=== PATIENT | male | born 1955 | race Caucasian/White ===

== ENCOUNTER 2020-06-01 17:36 | Emergency (ER) | payer OTHER ==
[2020-06-01 17:47] VITALS: RESP 18
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
[2020-06-01 18:22] LABS: Basophils # (A) 0.1 k/uL (0-0.2); Basophils % (A) 1 %; Eosinophils # (A) 0.2 k/uL (0-0.7); Eosinophils % (A) 2 %; HCT 40.2 % (39.0-53.0); HGB 13.7 gm/dL (13.0-17.5); Lymphocytes # (A) 0.4 k/uL (1.0-4.8); Lymphocytes % (A) 6 %; MCH 33.3 pg (25.0-35.0); MCHC 34.1 g/dL (31.0-37.0); MCV 97.5 fL (80.0-100.0); Mean Platelet Volume 6.5; Monocytes # (A) 0.4 k/uL (0-1.0); Monocytes % (A) 6 %; Neutrophils # (A) 5.7 k/uL (1.3-7.7); Neutrophils % (A) 82 %; Platelet Count 262 k/uL (150-450); RBC 4.12 m/uL (4.30-5.90); RDW 12.8 % (11.5-15.5); WBC 6.9 k/uL (3.8-10.6)
[2020-06-01 18:30] LABS: Calcium 9.6 mg/dL (8.4-10.2); Potassium 5.1 mmol/L (3.5-5.1)
[2020-06-01 18:42] LABS: Partial Thromboplastin Time 27.6 sec (22.0-30.0); Prothrombin Time 10.7 sec (9.0-12.0)
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
[2020-06-01] MEDS ORDERED: LIDOCAINE 5% PATCH TOPICAL STA (18:54)
[2020-06-01 20:39] VITALS: BP 154/74; PULSE 74; TEMP 97
== END 2020-06-01 20:38 | disposition home or self-care (01) ==
LOC: EC 17:36
DX: S20.219A Contusion of unspecified front wall of thorax, initial encounter (principal); Z88.0 Allergy status to penicillin; Z88.8 Allergy status to other drugs, medicaments and biological substances; Z87.891 Personal history of nicotine dependence; V43.52XA Car driver injured in collision with other type car in traffic accident, initial encounter; Y92.410 Unspecified street and highway as the place of occurrence of the external cause
CPT/HCPCS: 36415; 71250; 80048; 84484; 85025; 85610; 85730; 93005; 99284

== ENCOUNTER → 2021-07-29 | Outpatient (CLI) | payer MEDICARE ==
[2021-07-29 14:59] LABS: HCT 48.6 % (39.6-50.0); HGB 15.2 g/dL (13.0-17.0); MCH 30.8 pg (27.0-32.0); MCHC 31.3 g/dL (32.0-37.0); MCV 98.6 fL (80.0-97.0); Mean Platelet Volume 9.7 fL (9.5-12.2); Platelet Count 270 X 10*3/uL (140-440); RBC 4.93 X 10*6/uL (4.40-5.60); RDW 13.4 % (11.5-14.5); WBC 8.77 X 10*3/uL (4.50-10.00)
== END | disposition home or self-care (01) ==
LOC: LABWHC1 08:45
PROVIDERS: ATTEND Internal Medicine Endocrinology, Diabetes & Metabolism
DX: E29.1 Testicular hypofunction (principal); E03.8 Other specified hypothyroidism
CPT/HCPCS: 36415; 84153; 84403; 84443; 85027

== ENCOUNTER → 2022-11-26 | Outpatient (CLI) | payer MEDICARE ==
--- NOTE | 2022-11-26 09:05 | MR ---
EXAMINATION TYPE: MR caceres/gavi wo con DATE OF EXAM: 11/26/2022 7:58 AM COMPARISON: NONE HISTORY: Neck/Low back pain, Numbness in lower extremities, hx of cancer Multiplanar MultiSpin echo imaging of the cervical spine was performed. Comparison: none C2-C3: No evidence for degenerative disc disease. No disc bulge/herniation or protrusion. No Canal stenosis. Foramina are patent bilaterally. C3-C4: No evidence for degenerative disc disease. No disc bulge/herniation or protrusion. No Canal stenosis. Foramina are patent bilaterally. C4-C5: Mild disc desiccation compatible with degenerative disc disease. Mild disc bulge. No herniatio n or protrusion. Degenerative change cervical apophyseal joints with mild left-sided foraminal encroa chment. C5-C6: Mild disc desiccation compatible with degenerative disc disease. Mild disc bulge. No herniatio n or protrusion. Degenerative change cervical apophyseal joints with moderate left-sided foraminal e ncroachment. C6-C7: No evidence for degenerative disc disease. No disc bulge/herniation or protrusion. No Canal stenosis. Foramina are patent bilaterally. C7-T1: No evidence for degenerative disc disease. No disc bulge/herniation or protrusion. No Canal stenosis. Foramina are patent bilaterally. Cervical segments are intact. There is normal alignment. Cervical spinal cord is of normal signal. Craniovertebral junction relationships are within normal limits. IMPRESSION: 1. Degenerative disc disease with mild disc bulging. Left foraminal encroachment at C4-5 and C5-6 EXAMINATION TYPE: MR zamora wo con DATE OF EXAM: 11/26/2022 7:58 AM COMPARISON: NONE HISTORY: Neck/Low back pain, Numbness in lower extremities, hx of cancer Multiplanar, MultiSpin echo imaging of the lumbar spine was performed. L1-L2: Mild degenerative disc disease with posterior disc bulge and small annular tear. No pee disc herniation or central stenosis. Foramina are patent bilaterally. Foramina are patent bilaterally. L2-L3: Normal disc appearance without desiccation. No herniation, protrusion or disc bulging. No ca nal stenosis is present. Foramina are patent bilaterally. L3-L4: Normal disc appearance without desiccation. No herniation, protrusion or disc bulging. No ca nal stenosis is present. Foramina are patent bilaterally. L4-L5: Moderate disc desiccation with posterior disc bulge.. Retrolisthesis of L4 and L5 measuring 7. 4 mm grade 1 type. Effacement ventral thecal sac without disc herniation or central stenosis. Facet j oint arthropathy with mild bilateral foraminal encroachment. L5-S1: Severe disc desiccation with grade 2 anterolisthesis L5 on S1 measuring 11 mm. Degenerative en dplate marrow change. Disc bulging without herniation or central stenosis. Severe facet joint arthrop athy with severe foraminal encroachment seen bilaterally. Lumbar segments are intact. No paraspinal masses are identified. Conus medullaris has a normal appe arance. Bone marrow signal is heterogenous and correlation with CBC is advised. IMPRESSION: 1. Multilevel degenerative disc disease greatest at L4-5 and L5-S1 there is grade 1 retrolisthesis of L4 on L5 and grade 1 anterolisthesis of L5 on S1. 2. Degenerative endplate marrow change L5. Heterogeneity of the bone marrow signal may reflect bone m arrow reconversion. Correlate with CBC.
== END | disposition home or self-care (01) ==
LOC: RADMRIMAIN 06:49
PROVIDERS: ATTEND Nurse Practitioner Family
DX: M51.16 Intervertebral disc disorders with radiculopathy, lumbar region (principal); M43.17 Spondylolisthesis, lumbosacral region; M47.26 Other spondylosis with radiculopathy, lumbar region; M51.17 Intervertebral disc disorders with radiculopathy, lumbosacral region; M47.22 Other spondylosis with radiculopathy, cervical region
CPT/HCPCS: 72141; 72148

== ENCOUNTER → 2023-01-12 | Outpatient (CLI) | payer MEDICARE ==
[2023-01-12 13:57] VITALS: BP 131/82; PULSE 70; RESP 18; TEMP 97.7
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
== END ==
LOC: PNWHC3 12:16
PROVIDERS: ATTEND Specialist
DX: M47.22 Other spondylosis with radiculopathy, cervical region (principal); I10 Essential (primary) hypertension; F41.9 Anxiety disorder, unspecified; Z87.891 Personal history of nicotine dependence; Z88.6 Allergy status to analgesic agent; Z88.0 Allergy status to penicillin
CPT/HCPCS: 99211

== ENCOUNTER 2023-02-04 21:32 | Emergency (ER) | payer MEDICARE ==
[2023-02-04 22:32] VITALS: TEMP 98.4
--- NOTE | 2023-02-04 22:46 | XR ---
EXAMINATION TYPE: XR chest 2V DATE OF EXAM: 02/04/2023 COMPARISON: NONE HISTORY: Shortness of breath TECHNIQUE: Frontal and lateral views of the chest are obtained. FINDINGS: Scattered senescent parenchymal changes noted. Hyperinflation compatible with COPD. Right perihilar and right lower lobe increased density may reflect developing infiltrate. Small amoun t of fluid within the right minor fissure. The left lung is clear at this time. Heart size is stable. MediPort catheter is in place with distal tip overlying the SVC. Mediastinal structures are stable and grossly unremarkable. No evidence for hilar prominence. Degenerative changes dorsal spine. IMPRESSION: 1. Correlate for developing right-sided pneumonia.
[2023-02-05 01:04] VITALS: BP 166/99; PULSE 71; RESP 16
[2023-02-05] MEDS ORDERED: LEVOFLOXACIN 750 MG TAB PO STA (01:05)
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
== END 2023-02-05 01:17 | disposition home or self-care (01) ==
LOC: EC 21:32
DX: J18.9 Pneumonia, unspecified organism (principal); I10 Essential (primary) hypertension; F41.9 Anxiety disorder, unspecified; Z87.891 Personal history of nicotine dependence; Z88.0 Allergy status to penicillin; Z88.8 Allergy status to other drugs, medicaments and biological substances; Z79.899 Other long term (current) drug therapy; Z79.51 Long term (current) use of inhaled steroids; Z20.822 Contact with and (suspected) exposure to COVID-19
CPT/HCPCS: 71046; 87636; 99284

== ENCOUNTER → 2023-02-18 | Outpatient (CLI) | payer MEDICARE ==
[2023-02-18 13:57] LABS: African American GFR (CKD) 78 (>60 ml/min/1.73 sqM); Blood Urea Nitrogen 19 mg/dL (9-20); Non-African American GFR(CKD) 68 (>60 ml/min/1.73 sqM)
--- NOTE | 2023-02-19 17:29 | CT ---
EXAMINATION TYPE: CT angio abd aorta w/Runoff DATE OF EXAM: 02/18/2023 COMPARISON: None HISTORY: INFRARENAL ABDOMINAL AORTIC ANEURYSM wo rupture CT DLP: 2377.3 mGycm Automated exposure control for dose reduction was used. Contrast: None Technique: Axial images 2 mm thick sections. Reconstructed images in the coronal plane 3-D reconstruc francine images were performed through the abdominal aorta and lower extremity runoff. FINDINGS: Limited CT secondary obtained lung bases which are clear CT ABDOMEN: Liver and spleen of normal density without discrete masses or cysts. The adrenal glands a re normal. Kidneys are normal without masses cysts or hydronephrosis. Some perinephric fluid may be p resent on the left. The pancreas is normal. Gallbladder is unremarkable. Loops of bowel without oral contrast are normal. Inferior vena cava appears unremarkable CT PELVIS: Appears to be appendectomy clips in the right lower quadrant. The appendix is not identifi ed. Loops of bowel within the pelvis appear normal. There is some mild asymmetric wall thickening wit hin the posterior lateral right urinary bladder. Some diffuse urinary bladder wall thickening may als o be present. Clinical correlation with symptoms is recommended. Prostate is prominent. Spondylolysis of L5 is present. Facet degenerative changes are present. No suspicious lytic lesions e vident. Aorta: Descending thoracic aorta appears unremarkable. Celiac axis and superior mesenteric arteries a re normal. The renal artery origins appear normal. No aneurysmal dilatation of the abdominal aorta is evident. Inferior mesenteric artery appears normal Iliac vessels contain calcification. No suspicious focal stenosis is present. Internal and external i liac vessels are patent. Common femoral arteries are patent. Profunda femoris and superficial femoral arteries proximally are patent. Superficial femoral arteries are patent to the obturator canals. There is some narrowing within the l eft obturator canal of the superficial femoral artery. Popliteal arteries appear symmetrical and box nt. Trifurcation vessels appear normal. Peroneal arteries appear to be loss in the mid calf region. A nterior tibial arteries are lost in the more distal calf region. Posterior tibial arteries are lost a joanna the level of the ankles. No discrete vascular flow within the bilateral feet is evident. Delayed images were obtained through trifurcation vessels. Contrast opacification is somewhat improve d. Anterior tibial arteries are identified at the ankle level on the delayed images. Posterior tibial arteries are faintly visualized into the feet. On three-D reconstructed images contrast extends to the proximal trifurcation vessels. IMPRESSION: 1. NO ANEURYSMAL DILATATION ABDOMINAL AORTA. 2. ATTENUATION OF THE TRIFURCATION VESSELS WITHIN THE PROXIMAL TO MID CALF REGIONS BILATERALLY DISCUS SED ABOVE. ANTERIOR TIBIAL ARTERIES MAY BE PATENT TO THE LEVEL OF THE ANKLE BILATERALLY AND SLIGHTLY DELAYED IMAGES.
== END | disposition home or self-care (01) ==
LOC: RADCTMAIN 13:13
PROVIDERS: ATTEND Surgery
DX: I71.43 Infrarenal abdominal aortic aneurysm, without rupture (principal)
CPT/HCPCS: 82565; 84520; 75635; 36415; Q9967

== ENCOUNTER 2023-03-03 08:45 | Inpatient (IN) | payer MEDICARE ==
[2023-03-13] MEDS ORDERED: ACETAMINOPHEN TAB 500 MG TAB PO PRN (05:00)
[2023-03-13] MEDS ORDERED: TRANEXAMIC 1,000 MG/100ML-NACL 1,000 MG in SALINE 1 100ML.BAG IVPB PRN (05:00)
[2023-03-13] MEDS ORDERED: GABAPENTIN 300 MG CAP PO PRN (05:00)
[2023-03-13] MEDS ORDERED: ONDANSETRON 4 MG/2 ML VIAL IVP PRN (05:00)
[2023-03-13] MEDS ORDERED: VANCOMYCIN 1,500 MG in SODIUM CHLORIDE 0.9% 500 ML 500 ML IVPB PRN (05:00)
--- NOTE | 2023-03-13 07:34 | P.HPOR ---
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 [Xanax XR] 0.5 mg PO BID 01/12/23 03/06/23 History Acetaminophen Tab [Tylenol Tab] 1,000 mg PO Q6H PRN 01/12/23 03/06/23 History B Complex W-C No.20/Folic Acid 1 mg PO DAILY 01/12/23 03/06/23 History [Renal Caps Softgel] Cetirizine HCl [Zyrtec] 10 mg PO DAILY 01/12/23 03/06/23 History Cyclobenzaprine [Flexeril] 10 mg PO TID 01/12/23 03/06/23 History Ergocalciferol [Vitamin D2 (1250 1,250 mcg PO WE 01/12/23 03/06/23 History Mcg = 37945 Iu)] Fluticasone Nasal [place] [Flonase 2 spray EA NOSTRIL DAILY 01/12/23 03/06/23 History Nasal [place]] Ibuprofen [Motrin Ib] 200 mg PO Q8H PRN 01/12/23 03/06/23 History Levothyroxine Sodium [Synthroid] 250 mcg PO QAM 01/12/23 03/06/23 History Magnesium 250 mg PO DAILY 01/12/23 03/06/23 History Metoprolol Tartrate [Lopressor] 50 mg PO BID 01/12/23 03/06/23 History Pantoprazole [Protonix] 40 mg PO QAM 01/12/23 03/06/23 History Sertraline [Zoloft] 100 mg PO QAM 01/12/23 03/06/23 History Alpha Lipoic Acid 1,200 mg PO DAILY 02/24/23 03/06/23 History Lipo Falvinoid(Unk) 1 tab PO DAILY 02/24/23 03/06/23 History Salt Tab(Unk) 1 tab PO DIRECTED PRN 02/24/23 03/06/23 History Testosterone Cypionate 100 mg IM AMBRIZ 02/24/23 03/06/23 History [Depo-Testosterone] Tumeric (Unk) 1 tab PO DAILY 02/24/23 03/06/23 History tadalafiL [Cialis] 5 mg PO DAILY 03/06/23 03/06/23 History Allergies Allergy/AdvReac Type Severity Reaction Status Date / Time AAYUSH Inhibitors Allergy Swelling Verified 03/06/23 12:33 amoxicillin Allergy Rash/Hives Verified 03/06/23 12:33 [id number]-[id number]-[id number] Reductase AdvReac Elevates Verified 03/06/23 13:01 Inhibitor Liver Enzymes Physical Examination Osteopathic Statement: *. No significant issues noted on an osteopathic structural exam other than those noted in the History and Physical/Consult.
[2023-03-13] MEDS ORDERED: DEXAMETHASONE SOD PHOSPHATE 4 MG/ML 1 ML VIAL IV ONE (10:39)
[2023-03-13] MEDS ORDERED: LIDOCAINE 1% (10MG/ML) FOR IV START INTRADERMA PRN (10:39)
[2023-03-13] MEDS: LACTATED RINGERS 1,000 ML IV SCH (10:46)
[2023-03-13] MEDS ORDERED: MIDAZOLAM 2 MG/2 ML VIAL IVP ONE (12:00)
[2023-03-13] MEDS ORDERED: ROCURONIUM 10 MG/ML (5 ML VIAL) IV ONE (13:13)
[2023-03-13] MEDS ORDERED: KETAMINE 10 MG/ML 20 ML VIAL ONE (13:13)
[2023-03-13] MEDS ORDERED: HYDROmorphone (PF) 1 MG/ML ONE (13:13)
[2023-03-13] MEDS ORDERED: SUCCINYLCHOLINE CHLORIDE 200 MG/10 ML VIAL IV ONE (13:13)
[2023-03-13] MEDS ORDERED: SODIUM BICARB 8.4% 50 ML SYR (1 MEQ/ML) ONE (13:13)
[2023-03-13] MEDS ORDERED: PROPOFOL 10 MG/ML 20 ML VIAL IV ONE (13:13)
[2023-03-13] MEDS ORDERED: GLYCOPYRROLATE 0.2 MG/ML 2 ML VIAL ONE (13:13)
[2023-03-13] MEDS ORDERED: PHENYLEPHRINE-0.9% NACL SYG 1,000 MCG/10 ML SYRINGE ONE (13:13)
[2023-03-13] MEDS ORDERED: fentaNYL (PF) 50 MCG/ML 2 ML AMP ONE (13:13)
[2023-03-13] MEDS ORDERED: MIDAZOLAM 2 MG/2 ML VIAL ONE (13:13)
[2023-03-13] MEDS ORDERED: TRANEXAMIC 1,000 MG/100ML-NACL PREMIX BAG ONE (13:13)
[2023-03-13] MEDS ORDERED: LIDOCAINE 2% INJ 20 MG/ML (2 ML VIAL) ONE (13:13)
[2023-03-13] MEDS ORDERED: NEOSTIGMINE 1 MG/ML 10 ML VIAL ONE (13:13)
[2023-03-13] MEDS ORDERED: THROMBIN (BOVINE) 5,000 UNIT VIAL TOPICAL ONE ×2 (13:43)
[2023-03-13] MEDS ORDERED: GELATIN SPONGE,ABSORB (LARGE) 1 EACH SPONGE TOPICAL ONE (13:44)
[2023-03-13] MEDS ORDERED: SODIUM CHLORIDE 0.9% 50 ML with ceFAZolin 2,000 MG IV ONE ×2 (14:29)
[2023-03-13] MEDS ORDERED: ceFAZolin 1,000 MG VIAL ONE ×2 (14:29→18:20)
[2023-03-13] MEDS ORDERED: SODIUM CHLORIDE 0.9% 100 ML BAG ONE ×2 (14:29→18:20)
[2023-03-13 14:49] LABS: Allen Test Performed? Yes; HCT 44.4 % (39.0-53.0); HGB 15.1 gm/dL (13.0-17.5); MCH 30.4 pg (25.0-35.0); MCHC 33.9 g/dL (31.0-37.0); MCV 89.7 fL (80.0-100.0); Mean Platelet Volume 7.8; Platelet Count 190 k/uL (150-450); RBC 4.95 m/uL (4.30-5.90); RDW 14.4 % (11.5-15.5)
[2023-03-13 14:52] LABS: ABG PH 7.37 (7.35-7.45)
[2023-03-13 14:53] LABS: ABG HCO3 18 mmol/L (21-25); ABG PCO2 31 mmHg (35-45); ABG PO2 196 mmHg (83-108); ABG TCO2 19 mmol/L (19-24)
[2023-03-13 14:54] LABS: ABG Oxygen Saturation 99.8 % (94-97)
[2023-03-13 14:56] LABS: African American GFR (CKD) >90 (>60 ml/min/1.73 sqM); Anion Gap 10 mmol/L; Blood Urea Nitrogen 16 mg/dL (9-20); Calcium 8.5 mg/dL (8.4-10.2); Carbon Dioxide 20 mmol/L (22-30); Chloride 98 mmol/L (98-107); Glucose 138 mg/dL (74-99); Non-African American GFR(CKD) 85 (>60 ml/min/1.73 sqM); Sodium 128 mmol/L (137-145)
[2023-03-13 15:21] LABS: Potassium 6.6 mmol/L (3.5-5.1)
[2023-03-13] MEDS ORDERED: LACTATED RINGERS 1,000 ML IV ONE ×2 (16:00)
[2023-03-13 17:07] LABS: African American GFR (CKD) >90 (>60 ml/min/1.73 sqM); Anion Gap 10 mmol/L; Blood Urea Nitrogen 17 mg/dL (9-20); Calcium 8.4 mg/dL (8.4-10.2); Carbon Dioxide 18 mmol/L (22-30); Chloride 99 mmol/L (98-107); Glucose 132 mg/dL (74-99); Non-African American GFR(CKD) 87 (>60 ml/min/1.73 sqM); Sodium 127 mmol/L (137-145)
[2023-03-13 17:19] LABS: Potassium 6.2 mmol/L (3.5-5.1)
[2023-03-13] MEDS ORDERED: bisacodyL 10 MG SUPP RECTAL PRN (18:49)
[2023-03-13] MEDS ORDERED: MAGNESIUM HYDROXIDE 2,400 MG/30 ML CUP PO PRN (18:49)
[2023-03-13] MEDS ORDERED: HYDROcodone/APAP 5-325MG 1 EACH TAB PO PRN (18:49)
--- NOTE | 2023-03-13 19:26 | P.OP ---
Date of Procedure: 03/13/23 Preoperative Diagnosis: 1. L5-S1 GRADE II SPONDYLOLISTHESIS 2. L4-S1 SPONDYLOSIS WITH FORAMINAL STENOSIS 3. LOW BACK PAIN 4. LE RADICULOPATHY AND WEAKNESS Postoperative Diagnosis: 1. L5-S1 GRADE II SPONDYLOLISTHESIS 2. L4-S1 SPONDYLOSIS WITH FORAMINAL STENOSIS 3. LOW BACK PAIN 4. LE RADICULOPATHY AND WEAKNESS Procedure(s) Performed: PART I: 1. ANTERIOR RETROPERITONEAL EXPOSURE PERFORMED BY DR. QUEZADA 2. ANTERIOR LUMBAR INTERBODY FUSION L5-S1 (04308) 3. INSERTION OF INTERBODY DEVICE (02066) DR. QUEZADA AND DR. ZEPEDA WERE PRESENT FOR THE ENTIRE ANTERIOR CASE PART II: 1. POSTERIOLATERAL AND INTERBODY FUSION L4-5 (94656) 2. L5-S1 POSTERIOLATERAL INSTRUMENTED FUSION (23071) 3. L4-S1 SEGMENTAL INSTRUMENTATION (46306) 4. L4-5 LAMINOFORAMINOTOMY FOR DECOMPRESSION AND CAGE PLACEMENT (29045) 5. INSERTION OF INTERBODY DEVICE L4-5 (31161) 6. USE OF [employer] NAVIGATION FOR SCREW PLACEMENT (60154) USE OF IONM USE OF IO MICROSCOPE Implants: ANTERIOR: HEMA MONTEREY ALIF INTERBODY 20 DEG, 14 MM MEDIUM. 3 SCREWS 20 MM POST: GLOBUS CREO SCREWS LIFE SPINE CAGE MAGNATOS, ALLOCELL, AUTOGRAFT Anesthesia: GETA Surgeon: Juan Jose Villa (CO-SURGEON CASE FOR ALIF WITH DR. QUEZADA OF VASCULAR SURGERY) Destaticizer Feeder #1: Vonda Barreto (WAS PRESENT FOR PART II OF THE CASE FROM POSITION TO CLOSURE. ) Estimated Blood Loss (ml): 150 IV fluids (ml): 2,000 Urine output (ml): 400 Pathology: none sent Condition: stable Disposition: PACU Indications for Procedure: Mr. Mary is presenting for evaluation of low back and bilateral lower extremity pain, bilateral lower extreity numbness, tingling, and weakness. It was my pleasure to have seen and examined Mr. Mary. In our visit today we have had a chance to go over subjective complaints, physical examination findings and treatments including the natural course history without intervention and various interventional options. The patients imaging demonstrates[facility] Lumbar[facility]ine: 1. Multilevel degenerative disc disease greatest at L4-5 and L5-S1 there is grade 1 retrolisthesis of L4 on L5 and grade 2 anterolisthesis of L5 on S1. On physical exam, Mr. Mary demonstrates: an increasing, intermittent sharp thoracic/lumbar pain that radiates down into the bilateral lower extremities, associated with numbness and tingling. Patient reports experiencing gradually worsening right hip and buttock pain as well. Patient also reports experiencing increased weakness throughout the bilateral lower extremities. I have explained to the patient that as their condition progresses it will cause further neurological deficits and eventual paralysis. Based on the patients imaging, physical exam, and the rapid progression and disabling nature of their symptoms, at this time I recommend surgery in the form of a: Stage I: ALIF from L4-S1 and Stage II: Posterior L4-S1 decompression and fusion. I discussed the risk and benefits of this procedure at length with Mr. Mary. The patient agreed to considered pursuing the procedure above mentioned . Prior to surgery, she should follow up with her PCP (Cardio, ID, IM etc) for clearance. Questions were invited and answered, and the patient wishes to proceed as outlined below. Currently, I am recommendin.Stage I: ALIF from L4-S1 with Dr. Quezada of Vascular surgery Stage II: Posterior L4-S1 decompression and fusion Description of Procedure: PART I: The patient was seen and examined in the preoperative area. All preoperative protocols were followed. Informed consent was obtained risks and benefits of the procedure were discussed at length. Risks including bleeding infection damage to the surrounding tissue and risk of reoperation were discussed with the patient. Risk of anesthesia up to and including was a discussed with the patient. These are outlined in the risk review. They were willing to accept these risks and all of the risks of surgery. The patient was given a weight- based dose of antibiotics in the form of VANCOMYCIN AND aNCEF. The patient was seen and evaluated by the anesthesia team who deemed them fit for surgery. The site was marked, the patient was willing to proceed with the procedure. The patient was transferred to the operative suite by the Department of anesthesia. They were then drifted off to sleep by the department anesthesia and [anesthesia type] was performed. The patient tolerated this well. [Freeman catheter was placed by nursing staff, atraumatically]. Once confirmation of lines and ventilation the patient was transferred to a supine flattop Clarence table very carefully. All bony prominences including wrists, elbows, axilla, chest, hips, and thighs, and feet were padded very well. Special attention was paid to the genitalia and these were padded accordingly. SCDs were placed on bilateral lower extremities and were connected. Arms were well padded and placed talk to side thumbs-up well-padded. Once in position, again we confirmed good ventilation capabilities and that lines were running appropriately. The patient's anterior lumbar abdominal pelvic region was then exposed. 1010s were placed outlining the incision site. Standard alcohol was used to clean the incision site and allowed to dry. C-arm was used to biomark the patient and conf irm level for incision which was marked with a skin marker. Operative briefing was performed with all teams and everyone in agreement to proceed. The patient was then prepped and draped in a normal sterile fashion. Timeout was then performed and all parties were in agreement with the procedure to be performed. Dr. Quezada of vascular surgery then performed an anterior retroperitoneal exposure to the L5-S1 interspace. Please see his operative note for details. once the desired level was obtained we marked anteriorly using fluoroscopic imaging midline as well as confirmed to be in good position on lateral imaging. We then performed discectomy in this area using an annulotomy knife to first make an annulotomy followed by a Almodovar to release the disc and cartilaginous material from the endplates. We also used this to free up L5-S1 as it was somewhat stiffened on the posterior aspect. Osteotome was used to help release this. We then placed a knot bumper within the disc space and expanded it to help with ligamentotaxis and indirect decompression. We then shows templates and trials were placed. These were done under lateral fluoroscopic guidance once the trials were placed and were adequate size and reduction was selected. The final cage was then selected and impacted into position under lateral fluoroscopic guidance. 2 screws were placed caudally and 1 screw cranially to hold the interbody in position and had good purchase. Final AP and lateral fluoroscopic images confirmed good placement of hardware at L5-S1 with reasonable reduction of the listhesis. Attempt was made at L4-L5 from the anterior position however anatomic considerations did not allow us to perform this. Closure was then done per vascular surgery please see their note for details on the anterior closure portion. Once close the patient was transferred off the flat Clarence table onto his hospital bed while the tables were changed for a prone trios table. PART II: Once confirmation of lines and ventilation the patient was transferred to a prone Clarence table very carefully. All bony prominences including wrists, elbows, axilla, chest, hips, and thighs, and feet were padded very well. Special attention was paid to the genitalia, and these were padded accordingly. SCDs were placed on bilateral lower extremities and were connected. Arms were well padded and placed on arm boards up and out in the 90/90 position. Once in position, again we confirmed good ventilation capabilities and that lines were running appropriately. The patients Lumbar spine was then exposed. 1010s were placed outlining the incision site. Standard alcohol was used to clean the incision site and allowed to dry. C-arm was used to needle localize the pedicles at L4-S1 and bio-carine the patient and confirm level for incision which was marked with a skin marker. Operative briefing was performed with all teams and everyone in agreement to proceed. The patient was then prepped and draped in a normal sterile fashion. Timeout was then performed, and all parties agreed with the procedure to be performed. Skin nicks were made over the PSIS on the right side and pins placed for the Row Sham Bow Navigation tracker. This was secured and then a 3D Zhiem spin was registered. Once registered it was tested and confirmed to be accurate. We then targeted pedicles b/l at L4 through S1 using navigated Jamshidi and drill guide. Wires were then placed in their void and confirmed to be in good position on AP and Lateral. Contralateral right side screws were then placed over wires and tested and they all tested above 20 mA. Attention was then turned to interbody fusion at L4-5. Tubular retractor system was placed at the interspace of L4-5 using biplanar c arm. Once in position and dilated up to 26mm tube it was locked to the bed and confirmed in good position. Microscope was then brought in for visualization. Limited myomectomy was performed and laminectomy, complete facetectomy and foraminotomy performed at L4-5 using high speed ines and Kerrison rongure. The ligamentum was removed and dural sac decompressed. Exiting and traversing roots visualized and decompressed. Neural elements were then protected, and disc space accessed with an osteotome. Sequential shaving then done under lateral imaging and complete discectomy performed using yane, pituitary and curette. Once good bleeding endplates accomplished and good height taoist with trials, a combination of autograft, allograft and synthetic placed anterior in the disc space. The cage was then selected and impacted into place under lateral imaging. The cage was then expanded restoring height, lordosis and alignment. The cage was backfilled with bone graft through a funnel. The pallet stone inserter removed and area inspected. Good cage placement, stable cage and no injuries. Area was irrigated copiously, and meticulous hemostasis achieved. The tubular retractor was then removed under direct visualization. Screws were then selected and placed over the previously placed wires on the ipsilateral side. This was done in the fashion described above. Screws were then tested, and all tested above 20 mA. Shells were then placed on the tabs. Ajay length was then measured, and rods selected. They were then placed through the MIS tabs, subfascial. These were then locked into place with set screws and final tightened. Ajay holders removed and images taken showing good placement of rods good lordosis and taoist of height. Tabs were broken off. Wounds were then copiously irrigated with NSS. Ines used for TP decortication and mixture of MagnatOs, allograft and autograft packed posterolateral. Facia was then closed with 0 Vircyl. Deep subq closed with 0 Vicryl. Superficial subq closed with 2-0 Vicryl and skin with rikki. Wound edges approximated very well. Wound was then cleaned with alcohol and dried. Wounds dressed in Optifoam dressings. The patient was then transferred off the table back to their hospital bed a- traumatically. They were extubated by the department of anesthesia. They were then transferred to PACU in stable condition having tolerated the procedure with no complications.
[2023-03-13] MEDS: HYDROmorphone 0.5 MG/0.5 ML SYRINGE IVP PRN ×2 (19:45→19:58)
[2023-03-13 20:10] LABS: African American GFR (CKD) >90 (>60 ml/min/1.73 sqM); Anion Gap 7 mmol/L; Blood Urea Nitrogen 15 mg/dL (9-20); Carbon Dioxide 22 mmol/L (22-30); Chloride 102 mmol/L (98-107); Glucose 128 mg/dL (74-99); Non-African American GFR(CKD) >90 (>60 ml/min/1.73 sqM); Potassium 4.3 mmol/L (3.5-5.1); Sodium 131 mmol/L (137-145)
[2023-03-13] MEDS: CYCLOBENZAPRINE 10 MG TAB PO PRN (21:53)
[2023-03-13] MEDS: HYDROmorphone 1 MG/ML 1 ML SYRINGE IVP PRN (21:53)
[2023-03-14 01:24] LABS: Basophils % (A) 0 %; Eosinophils # (A) 0.2 k/uL (0-0.7); Eosinophils % (A) 1 %; HCT 44.5 % (39.0-53.0); HGB 14.7 gm/dL (13.0-17.5); Lymphocytes # (A) 0.4 k/uL (1.0-4.8); Lymphocytes % (A) 2 %; MCH 30.6 pg (25.0-35.0); MCHC 32.9 g/dL (31.0-37.0); MCV 92.8 fL (80.0-100.0); Mean Platelet Volume 7.5; Monocytes # (A) 0.9 k/uL (0-1.0); Monocytes % (A) 5 %; Neutrophils % (A) 90 %; Platelet Count 202 k/uL (150-450); RDW 14.8 % (11.5-15.5); WBC 17.7 k/uL (3.8-10.6)
[2023-03-14 01:44] LABS: African American GFR (CKD) 80 (>60 ml/min/1.73 sqM); Anion Gap 10 mmol/L; Blood Urea Nitrogen 21 mg/dL (9-20); Calcium 8.3 mg/dL (8.4-10.2); Carbon Dioxide 23 mmol/L (22-30); Chloride 96 mmol/L (98-107); Glucose 124 mg/dL (74-99); Non-African American GFR(CKD) 69 (>60 ml/min/1.73 sqM); Potassium 5.7 mmol/L (3.5-5.1); Sodium 129 mmol/L (137-145)
[2023-03-14] MEDS ORDERED: SODIUM CHLORIDE 0.9% 1,000 ML IV ONE (02:56)
[2023-03-14] MEDS ORDERED: SODIUM POLYSTYRENE SULFONATE 15 GM/60 ML BOTTLE PO STA (02:57)
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
[2023-03-14] MEDS ORDERED: CALCIUM GLUCONATE IN NACL 1 GM in SALINE 1 100ML.BAG IVPB ONE (03:00)
--- NOTE | 2023-03-14 04:52 | CT ---
EXAMINATION TYPE: CT lumbar spine wo con DATE OF EXAM: 03/13/2023 COMPARISON: None HISTORY: post-op CT DLP: 1186.6 mGycm CONTRAST: None TECHNIQUE: CT of the lumbar spine is performed on a spiral scan at 3 mm thick sections. Reconstructed images are performed in the coronal and sagittal planes. FINDINGS: T11-T12: No focal disc herniation or significant disc bulge is evident. No spinal canal stenosis or neural foraminal stenosis is present. T12-L1: No focal disc herniation or significant disc bulge is evident. No spinal canal stenosis or neural foraminal stenosis is present. L1-L2: No focal disc herniation or significant disc bulge is evident. No spinal canal stenosis or n eural foraminal stenosis is present L2-L3: No focal disc herniation or significant disc bulge is evident. No spinal canal stenosis or n eural foraminal stenosis is present L3-L4: Broad-based disc bulge as well as anterior thecal sac flattening. No AP spinal canal stenosis present. Neural foramen are patent. L4-L5: Disc spacer is in place. Pedicle screws are present L4-L5. This causes beam hardening artifact . Moderate right and mild left foraminal narrowing is present. There is spondylolysis of L5. L5-S1: Spondylolysis of L5 is evident. No focal disc herniation or significant disc bulge is evident. No spinal canal stenosis. Moderate bilateral foraminal narrowing is present. Disc spacers present. There is a grade 1 spondylolisthesis of L5 anteriorly on S1. Postsurgical changes are within the soft tissues posterior to the spinous processes L4-L5. IMPRESSION: 1. Postsurgical changes L4-S1. 2. Grade 1 spondylolisthesis of L5 anteriorly on S1. 3. Mild to moderate foraminal narrowing lower lumbar spine discussed above.
[2023-03-14] MEDS: SENNOSIDES-DOCUSATE SODIUM 1 EACH TAB PO SCH (07:01)
[2023-03-14] MEDS: SERTRALINE 100 MG TAB PO SCH (08:50)
[2023-03-14] MEDS: METOPROLOL TARTRATE 50 MG TAB PO SCH ×2 (08:50→20:22)
[2023-03-14] MEDS: PANTOPRAZOLE 40 MG TABLET PO SCH (08:50)
[2023-03-14] MEDS: HYDROmorphone 1 MG/ML 1 ML SYRINGE IVP PRN ×2 (08:50→16:43)
[2023-03-14] MEDS: ONDANSETRON 4 MG/2 ML VIAL IVP PRN (08:50)
--- NOTE | 2023-03-14 11:56 | P.PN ---
Subjective Progress Note Date: 03/14/23 Principal diagnosis: L5-S1 grade 2 spondylolisthesis L4 S1 spondylosis lower extremity radiculopathy patient seen and examined in his room is doing okay he is in some pain right now I see just try to get up and move around we got lightheaded when he got up. Potassium is elevated again nursing is at bedside. Discussed with Allegra his nurse that patient got up about was lightheaded and had some issues with this. We are going to switch some of his medications around a season pain is well. He denies any numbness or tingling no perineal numbness or tingling. Legs are moving well. Objective - Vital Signs Vital signs: Vital Signs Temp 98.3 F 03/14/23 09:38 Pulse 103 H 03/14/23 06:59 Resp 18 03/14/23 06:59 BP 105/66 03/14/23 09:38 Pulse Ox 95 03/14/23 08:47 FiO2 Intake & Output 03/13/23 03/14/23 03/14/23 18:59 06:59 18:59 Intake Total 4050 1370 Output Total 1150 500 Balance 2900 870 Weight 97.3 kg 97.3 kg Intake: IV 4050 Intake, IV Titration 1230 Amount Calcium Gluconate in NaCl 100 1 gm In Saline 1 100ml. bag @ 100 mls/hr IVPB ONCE ONE Rx#:[id number] Lactated Ringers 1,000 ml 80 @ 20 mls/hr IV .Q24H [facility] Rx#:[id number] Sodium Chloride 0.9% 1, 1000 000 ml @ 999 mls/hr IV . Q1H1M ONE Rx#:[id number] ceFAZolin 2 gm In Sodium 50 Chloride 0.9% 50 ml @ 100 mls/hr IVPB Q8HR [facility] Rx# :[id number] Oral 140 Output: Urine 1000 500 Estimated Blood Loss 150 Other: Voiding Method Indwelling Catheter Indwelling Catheter - Exam Physical Exam: -Patient is alert and oriented 3 appears well-nourished well-hydrated is in no acute distress. They do not appear septic. -There is TTP Of the abdomen and low back secondary to surgery no erythema or ecchymosis edema [-Incision is CDI, no EEE, no drainage] -Upper extremities show [5] out of 5 strength in all major muscle groups. [##EXCEPT] -Lower extremities with [5] out of 5 strength in all major muscle groups except hip flexion bilaterally as this causes pain currently -There is [FROM] that is [painless] of the b/l UE and LE in all major joints. negative straight leg raise negative logroll bilaterally -They are intact to light touch sensation in C5 to T1 and L2 to S1 nerve distribution. -DTR [2]/4 all upper and lower extremities -Patient has palpable distal pulses all 4 ext -Compartments are soft and compressible. -Patient shows a negative Melchor's [-Neg Hoffmans b/l] [-Neg Clonus b/l] [-Neg babinski b/l] Cranial nerves II through XII are grossly intact. - Labs CBC & Chem 7: 03/14/23 01:06 03/14/23 01:06 Labs: Abnormal Lab Results - Last 24 Hours (Table) 03/13/23 03/13/23 03/13/23 Range/Units 14:20 14:20 14:20 WBC 13.0 H (3.8-10.6) k/uL Neutrophils # (1.3-7.7) k/uL Lymphocytes # (1.0-4.8) k/uL ABG pCO2 31 L (35-45) mmHg ABG pO2 196 H (83-108) mmHg ABG HCO3 18 L (21-25) mmol/L ABG O2 Saturation 99.8 H (94-97) % Sodium 128 L (137-145) mmol/L Potassium 6.6 H* (3.5-5.1) mmol/L Chloride (98-107) mmol/L Carbon Dioxide 20 L (22-30) mmol/L BUN (9-20) mg/dL Glucose 138 H (74-99) mg/dL Calcium (8.4-10.2) mg/dL 03/13/23 03/13/23 03/14/23 Range/Units 15:25 19:06 01:06 WBC 17.7 H (3.8-10.6) k/uL Neutrophils # 16.0 H (1.3-7.7) k/uL Lymphocytes # 0.4 L (1.0-4.8) k/uL ABG pCO2 (35-45) mmHg ABG pO2 (83-108) mmHg ABG HCO3 (21-25) mmol/L ABG O2 Saturation (94-97) % Sodium 127 L 131 L (137-145) mmol/L Potassium 6.2 H* (3.5-5.1) mmol/L Chloride (98-107) mmol/L Carbon Dioxide 18 L (22-30) mmol/L BUN (9-20) mg/dL Glucose 132 H 128 H (74-99) mg/dL Calcium 7.0 L (8.4-10.2) mg/dL 03/14/23 Range/Units 01:06 WBC (3.8-10.6) k/uL Neutrophils # (1.3-7.7) k/uL Lymphocytes # (1.0-4.8) k/uL ABG pCO2 (35-45) mmHg ABG pO2 (83-108) mmHg ABG HCO3 (21-25) mmol/L ABG O2 Saturation (94-97) % Sodium 129 L (137-145) mmol/L Potassium 5.7 H (3.5-5.1) mmol/L Chloride 96 L (98-107) mmol/L Carbon Dioxide (22-30) mmol/L BUN 21 H (9-20) mg/dL Glucose 124 H (74-99) mg/dL Calcium 8.3 L (8.4-10.2) mg/dL Assessment and Plan Assessment: 67-year-old male postop day 1 PartI: L5-S1 ALIF with Part II: L4-S1 posteriolateral and interbody fusion. Plan: -Appreciate seo consultant and team management. -Activity: Ambulate QID, OOB all meals, up and about, limit lifting bending twisting to less than 5 lbs. Use walker or cane if needed for stability. -Daily PT/OT, increase ambulation strength and balance. - brace ordered but does not need it to get up and move around -Pain control: evaluate pain medication likely change to schedule -Meds: [reviewed] -GI ppx: senna, Miralax -DC dennis when up and about, bedside commode if needed -DVT PPX: continue with mechanical okay to restart heparin tonight -Hygiene: Shower today. Maintain dressing clean and dry. Meticulous cleaning after BMs away from incision site -Encourage IS 10x/hr -Dispo: [Pending]
[2023-03-14] MEDS ORDERED: HYDROcodone/APAP 10-325MG 1 EACH TAB PO PRN (11:57)
[2023-03-14] MEDS ORDERED: CYCLOBENZAPRINE 10 MG TAB PO PRN (11:59)
[2023-03-14] MEDS ORDERED: ACETAMINOPHEN IV (For NPO) 1,000 MG in EMPTY BAG 1 BAG IVPB ONE (11:59)
[2023-03-14] MEDS ORDERED: CAFFEINE SODIUM BENZOATE IVPB ONE (13:00)
[2023-03-14] MEDS ORDERED: 0.9% NACL WITH KCL 20 MEQ/L 1,000 ML IV ONE (13:00)
[2023-03-14] MEDS ORDERED: SODIUM CHLORIDE 0.9% IVPB ONE (13:00)
[2023-03-14] MEDS ORDERED: ASPIRIN 325 MG TAB PO STA (14:03)
--- NOTE | 2023-03-14 14:06 | P.OP ---
Date of Procedure: 03/13/23 Preoperative Diagnosis: 1. L5-S1 Grade II Spondylolisthesis 2. L4-S1 Spondylosis with foraminal stenosis 3. Low back Pain 4. LE Radiculopathy and weakness Postoperative Diagnosis: Same Procedure(s) Performed: 1. Anterior retroperitoneal exposure 2. Anterior lumbar interbody fusion L5-S1 3. Insertion of interbody device Anesthesia: RENNY Surgeon: Sean Quezada Supply Teacher #1: Adrián Sanford Supply Teacher #2: Juan Jose Villa Pathology: none sent Condition: stable Disposition: PACU Indications for Procedure: Indication for procedure: The patient is a 67-year-old man with a longstanding history of back pain and leg pain. Patient was evaluated by Dr. Villa and after thorough work-up and imaging he felt the patient required an anterior and posterior fusion of the L5-S1 disc space. Patient was seen pre-operatively in my office and extensive discussion was had about risks and benefits of the procedure. Risks discussed included bleeding, infection, possible bowel, bladder, ureteral injuries, possible nerve damage, paresthesias, hernias, lymph leaks, tear or venous thrombosis requiring thrombectomy or bypass, and possibility of retrograde ejaculation were all discussed. Patient understood these risks, alternatives to treat wished to proceed. Description of Procedure: Operative narrative: Patient was brought to the operating room and placed in a supine position after appropriate anesthetic was performed per the anesthesiologist. IV antibiotics were given prior to incision. Freeman catheter was placed. Preoperative localization of the disc space was carried out with fluoroscopy. The abdomen was prepped and draped in the usual sterile fashion. Timeout was performed in normal fashion with all parties in agreement. A midline incision was then created with a 10 blade scalpel and dissection was carried down through the subcutaneous tissue. Left anterior rectus sheath was located and identified and then incised. The left rectus abdominis muscle was then mobilized from the midline laterally. The retroperitoneum was then entered in the left lower quadrant. Peritoneal contents were then swept toward the midline with some difficulty due to adhesions from previous surgery. A Arben retractor was then placed in the peritoneum was retracted medially. Bipolar cautery was then utilized to free up the soft tissues between the iliac veins. The iliac artery, vein were located and spared. Meticulous dissection was carried around this area and the left iliac vein was retracted laterally to allow for better visualization of the L5-S1 space. Middle sacral vessels were then located and dissected free and were ligated. Good visualization of the L5- S1 disc space was viewed and confirmed with fluoroscopy. A pin was placed within the disc space which was confirmed on fluoroscopy and shown to be in good position. At that time Dr. Villa performed a discectomy, and cage placement at the L5-S1 disc level. Please see his dictation for further details. Once completed the area was inspected for hemostasis. Hemostasis was ensured. There was no active bleeding or any signs of injury. All retractors were then removed and the incision was closed. The anterior rectus sheath was reapproximated with 2-0 PDS suture in a running fashion. Subcutaneous tissue was reapproximated with 3-0 Vicryl. Skin was closed with 4-0 Monocryl. All sponges and instruments were accounted for. I was present in the room for the entire procedure and assisted Dr. Villa with his portion of the procedure that included vessel and soft tissue retraction to facilitate implant placement.
--- NOTE | 2023-03-14 14:40 | P.PN ---
Progress Note - Text Progress Note Date: 03/14/23 8 Patient seen and examined this morning. He appears to be in moderate distress and diaphoretic. He reports vertigo that is chronic in nature which worsened when PT attempted to get him out of bed. He does have right sided hearing loss which is chronic as well. Pain is uncontrolled, 7/10 in severity. He denies any chest pain, shortness of breath or palpitations. CBC this morning shows WBC count of 17.7 with neutrophilia. BMP shows sodium of 129, potassium of 5.7, chloride of 96, BUN of 21, glucose 124 and calcium of 8.3. Vital signs were obtained during the encounter. His BP is 105/56 with heart rate in the low 90s. He is afebrile. Additional lab work was done which included lactic acid, EKG and troponin. Lactic acid elevated at 3.1. Troponin elevated at 0.146. EKG showed sinus rhythm with first degree AV block with no ST elevation. General: non toxic, moderate distress, appears at stated age, diaphoretic Derm: warm, dry Head: atraumatic, normocephalic, symmetric Eyes: EOMI, no lid lag, anicteric sclera Cardiovascular: Tachycardic, no murmur Lungs: CTA bilateral, no rhonchi, no rales , no accessory muscle use Ext: no gross muscle atrophy, no edema, no contractures Neuro: no focal neuro deficits Psych: Alert, oriented, appropriate affect Troponin elevation Hyperkalemia SIRS Lactic acidosis Hyponatremia Troponin elevation: Patient will be given 325 mg PO ASA x 1 followed by ASA 81 mg PO QD. Troponins will be trended. He is chest pain free. Echocardiogram o rdered. Cardiology consulted. Telemetry monitoring ordered. Discussed with LUCIE Go. Hyperkalemia: His repeat potassium is 4.3. Status post Kayexalate, 1L NS bolus and Ca gluconate 1g IV. SIRS: He does meet sepsis criteria with leukocytosis, tachycardia and hypotension. Lactic acid is 3.1. No signs of active infection however. Leukocytosis could be reactive as well as due to steroids. Tachycardia possibly related to uncontrolled pain. Blood cultures are collected. Agree with NS at 100 cc/hr. Trend lactic acid until negative. Hyponatremia: Likely due to dehydration. Continue IV hydration as above.
[2023-03-14] MEDS: HYDROcodone/APAP 10-325MG 1 EACH TAB PO PRN ×2 (14:53→18:50)
[2023-03-14] MEDS: CYCLOBENZAPRINE 10 MG TAB PO PRN ×2 (14:54→23:48)
[2023-03-14] MEDS: GABAPENTIN 300 MG CAP PO SCH ×2 (16:42→20:22)
[2023-03-14] MEDS: HYDROmorphone 0.5 MG/0.5 ML SYRINGE IVP PRN ×2 (20:14→23:11)
--- NOTE | 2023-03-14 21:25 | FL ---
EXAMINATION TYPE: FL guidance operating room, XR lumbar spine 2 or 3V DATE OF EXAM: 03/13/2023 Comparison: None Clinical History: 67-year-old male PLDF Findings: Intraoperative fluoroscopy during anterior lumbar fusion. 9 images are submitted. Total fluoroscopy time 141 seconds. DAP [id number] cGycm2 Impression: Intraoperative fluoroscopy as above.
[2023-03-14] MEDS ORDERED: NITROGLYCERIN OINT 1 INCH/GM PACKET TOPICAL STA (22:43)
--- NOTE | 2023-03-14 23:41 | XR ---
EXAMINATION TYPE: XR abdomen 2V DATE OF EXAM: 03/14/2023 COMPARISON: None INDICATION: Abdomen pain TECHNIQUE: Single view abdomen supine and upright view FINDINGS: There is abundant bowel gas present within bowel loops. Loops appear to be dilated. No free air is ev ident. Psoas margins are normal. No organomegaly is present. IMPRESSION: 1. Prominent small bowel loops and colon. Correlate for ileus. Follow-up is recommended
[2023-03-15] MEDS: HYDROcodone/APAP 10-325MG 1 EACH TAB PO PRN (01:04)
[2023-03-15] MEDS: HYDROmorphone 1 MG/ML 1 ML SYRINGE IVP PRN ×7 (02:02→20:38)
[2023-03-15] MEDS: LEVOTHYROXINE 125 MCG TAB PO SCH (06:23)
[2023-03-15] MEDS: LACTATED RINGERS 1,000 ML IV SCH (06:30)
[2023-03-15] MEDS: SERTRALINE 100 MG TAB PO SCH ×2 (08:43→11:28)
[2023-03-15] MEDS: GABAPENTIN 300 MG CAP PO SCH ×4 (08:43→22:07)
[2023-03-15] MEDS: PANTOPRAZOLE 40 MG TABLET PO SCH ×2 (08:43→11:28)
[2023-03-15] MEDS: METOPROLOL TARTRATE 50 MG TAB PO SCH (08:43)
[2023-03-15] MEDS: SENNOSIDES-DOCUSATE SODIUM 1 EACH TAB PO SCH ×2 (08:43→11:28)
[2023-03-15] MEDS: ASPIRIN 81 MG PO SCH (08:43)
[2023-03-15 08:59] LABS: HCT 42.7 % (39.0-53.0); HGB 13.9 gm/dL (13.0-17.5); MCH 30.4 pg (25.0-35.0); MCHC 32.6 g/dL (31.0-37.0); MCV 93.1 fL (80.0-100.0); Mean Platelet Volume 7.5; Platelet Count 188 k/uL (150-450); RBC 4.59 m/uL (4.30-5.90); RDW 14.4 % (11.5-15.5); WBC 13.5 k/uL (3.8-10.6)
[2023-03-15] MEDS ORDERED: polyethylene glycoL 3350 17 GM POWD.PACK PO SCH (09:00)
[2023-03-15] MEDS ORDERED: MAGNESIUM CITRATE 296 ML BOTTLE PO ONE (09:00)
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
[2023-03-15 09:11] LABS: African American GFR (CKD) 88 (>60 ml/min/1.73 sqM); Anion Gap 9 mmol/L; Blood Urea Nitrogen 16 mg/dL (9-20); Calcium 8.6 mg/dL (8.4-10.2); Carbon Dioxide 29 mmol/L (22-30); Chloride 92 mmol/L (98-107); Glucose 124 mg/dL (74-99); Non-African American GFR(CKD) 76 (>60 ml/min/1.73 sqM); Potassium 4.2 mmol/L (3.5-5.1); Sodium 130 mmol/L (137-145)
--- NOTE | 2023-03-15 11:39 | P.PN ---
Subjective Progress Note Date: 03/15/23 Patient is a 67-year-old male with a PMH of hypothyroidism, hypertension, and degenerative disc disease with chronic lower back pain who was admitted for an elective lumbosacral fusion and decompression. The patient underwent a 2-stage procedure with anterior and posterior approaches on 03/13. 03/14 Patient seen and examined this morning. He appears to be in moderate distress and diaphoretic. He reports vertigo that is chronic in nature which worsened when PT attempted to get him out of bed. He does have right sided hearing loss which is chronic as well. Pain is uncontrolled, 7/10 in severity. He denies any chest pain, shortness of breath or palpitations. CBC this morning shows WBC count of 17.7 with neutrophilia. BMP shows sodium of 129, potassium of 5.7, chloride of 96, BUN of 21, glucose 124 and calcium of 8.3. Vital signs were obtained during the encounter. His BP is 105/56 with heart rate in the low 90s. He is afebrile. Lactic acid elevated at 3.1. Troponin elevated at 0.146. EKG showed sinus rhythm with first degree AV block with no ST elevation. CT L- spine showed post surgical changes L4-S1 and mind to moderate foraminal narrowing. 03/15 Patient was seen and examined. He continues to be diaphoretic. He is chest pain free. He reports vertigo with movement which he reports to be chronic in nature. Pain is 7/10 in his lower back. He reports nausea and abdominal distention. Not passing gas. CBC shows WBC count of 13.5. BMP shows Na 130, Cl 92, glucose 124. Lactic acid 1.6 on repeat after IV hydration overnight. Troponin continues to be elevated at 0.784, 1.1, 1.66. Case discussed with Dr. Villa yesterday, would hold Heparin drip if at all possible which Dr. Schwartz is agreeable with. Started on ASA yesterday. Cardiology is now on board. He is transferred to . KUB shows prominent small bowel loops and colon, correlated for illeus. General: non toxic, moderate distress, appears at stated age, diaphoretic Derm: warm, dry Head: atraumatic, normocephalic, symmetric Eyes: EOMI, no lid lag, anicteric sclera Cardiovascular: Tachycardic, no murmur Lungs: CTA bilateral, no rhonchi, no rales , no accessory muscle use Ext: no gross muscle atrophy, no edema, no contractures GI: No bowel sounds heard. Distended. Non tender to palpation. Neuro: no focal neuro deficits Psych: Alert, oriented, appropriate affect NSTEMI SIRS Hyponatremia Illeus Resolved: Lactic acidosis, Hyperkalemia Based on my assessment of this patient, this patient meets a high complexity level of care. Patient has an acute diagnosis of NSTEMI that poses a threat to life or bodily function. Troponin elevation: Patient will be continued on aspirin 81 mg PO QD. He is chest pain free. Echocardiogram ordered. Cardiology consulted. Telemetry monitoring ordered. Discussed with Dr. Schwartz who recommends increased beta blockers and nitrates. SIRS: He does meet sepsis criteria with leukocytosis, tachycardia and hypotension. No signs of active infection however. Leukocytosis could be reac tive as well as due to steroids. Tachycardia possibly related to uncontrolled pain. Blood cultures are collected. Hyponatremia: Na 130. Improved with IV hydration. Likely hypovolemic. Illeus: As seen on KUB. NPO. Continue general surgery. Obtain Mag level. I have reviewed the following loss prevention consultant notes: Orthopedic surgery and Cardiology note. I have reviewed the results of the following tests: CBC, BMP, Lactic acid, Troponin, KUB. I have ordered the following tests: CBC, Mag level and BMP. I have discussed the care of this patient with the following independent historian: I have independently interpreted the following test below: KUB as above. I have discussed the management of this patient with the following physician: Dr. Schwartz as above. Objective - Vital Signs Vital signs: Vital Signs Temp 98.4 F 03/15/23 08:00 Pulse 98 03/15/23 08:00 Resp 20 03/15/23 08:00 BP 130/76 03/15/23 08:00 Pulse Ox 97 03/15/23 08:00 FiO2 Intake & Output 03/14/23 03/15/23 03/15/23 18:59 06:59 18:59 Intake Total 1080 917 Output Total 2425 1025 Balance -1345 -108 Weight 106.5 kg Intake: Intake, IV Titration 567 Amount Sodium Chloride 0.9% 50 567 ml @ 0 mls/hr IV .STK-MED ONE with ceFAZolin 2,000 mg Rx#:[id number] Oral 1080 350 Output: Urine 8985 1025 Other: Voiding Method Indwelling Catheter Indwelling Catheter Indwelling Catheter - Labs CBC & Chem 7: 03/15/23 08:18 03/15/23 08:18 Labs: Abnormal Lab Results - Last 24 Hours (Table) 03/14/23 03/14/23 03/14/23 Range/Units 11:53 11:53 15:31 WBC (3.8-10.6) k/uL Sodium (137-145) mmol/L Chloride (98-107) mmol/L Glucose (74-99) mg/dL Plasma Lactic Acid Pepito 3.1 H* 2.7 H* (0.7-2.0) mmol/L Troponin I 0.146 H* (0.000-0.034) ng/mL 03/14/23 03/14/23 03/15/23 Range/Units 17:03 19:58 08:18 WBC 13.5 H (3.8-10.6) k/uL Sodium (137-145) mmol/L Chloride (98-107) mmol/L Glucose (74-99) mg/dL Plasma Lactic Acid Pepito (0.7-2.0) mmol/L Troponin I 0.784 H* 1.100 H* (0.000-0.034) ng/mL 03/15/23 03/15/23 Range/Units 08:18 08:18 WBC (3.8-10.6) k/uL Sodium 130 L (137-145) mmol/L Chloride 92 L (98-107) mmol/L Glucose 124 H (74-99) mg/dL Plasma Lactic Acid Pepito (0.7-2.0) mmol/L Troponin I 1.660 H* (0.000-0.034) ng/mL
[2023-03-15] MEDS: NITROGLYCERIN OINT 1 INCH/GM PACKET TOPICAL SCH ×2 (11:41→18:57)
[2023-03-15] MEDS: METOPROLOL TARTRATE 5 MG/5 ML VIAL IVP SCH ×2 (11:41→18:55)
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
[2023-03-15] MEDS: MAGNESIUM SULFATE-D5W PMX 1 GM in DEXTROSE/WATER 1 100ML.BAG IVPB SCH ×2 (15:25→16:51)
[2023-03-15] MEDS: METOCLOPRAMIDE 5 MG/ML 2 ML VIAL IVP SCH ×2 (15:25→20:38)
[2023-03-15] MEDS: SIMETHICONE 80 MG CHEWABLE PO SCH ×2 (16:50→22:07)
--- NOTE | 2023-03-15 19:22 | P.ANPRN ---
Procedure Note - Anesthesia - Invasive Line Right Arterial Line Time Out Performed: Yes Date of Procedure: 03/13/23 Time of Procedure: 12:01 Location of Patient: PreOp Preparation: Sterile Prep, Sterile Dressing Arterial Line Location: Radial Ultrasound Used: No Purpose - Visualization and Identification of Vasculature: No Image Stored and Saved: No Narrative: Central line placement per sterile protocol utilized.
--- NOTE | 2023-03-15 19:23 | P.ANPRN ---
Procedure Note - Anesthesia - Invasive Line Left Central Line Time Out Performed: Yes Date of Procedure: 03/13/23 Time of Procedure: 12:12 Location of Patient: PreOp Preparation: Sterile Prep, Sterile Dressing Central Line Location: Internal Jugular Ultrasound Used: No Purpose - Visualization and Identification of Vasculature: No Image Stored and Saved: No Narrative: Central line placement per sterile protocol utilized.
[2023-03-15] MEDS: ONDANSETRON 4 MG/2 ML VIAL IVP PRN (22:14)
[2023-03-16] MEDS: NITROGLYCERIN OINT 1 INCH/GM PACKET TOPICAL SCH ×4 (00:08→17:05)
[2023-03-16] MEDS: HYDROmorphone 1 MG/ML 1 ML SYRINGE IVP PRN ×8 (00:10→22:39)
[2023-03-16] MEDS: METOCLOPRAMIDE 5 MG/ML 2 ML VIAL IVP SCH ×4 (02:35→21:13)
[2023-03-16] MEDS: METOPROLOL TARTRATE 5 MG/5 ML VIAL IVP SCH ×4 (02:35→17:05)
[2023-03-16] MEDS: LEVOTHYROXINE 125 MCG TAB PO SCH (06:08)
[2023-03-16] MEDS: ONDANSETRON 4 MG/2 ML VIAL IVP PRN (06:16)
--- NOTE | 2023-03-16 07:35 | P.PN ---
Subjective Progress Note Date: 03/15/23 Principal diagnosis: L5-S1 grade 2 spondylolisthesis L4 S1 spondylosis lower extremity radiculopathy Pt s/e. Not feeling great this AM. He is having more abdominal pain. He has not had BM. His Trop were trended out and are increasing. He has no CP currently. He states no F/C overnight but is c/o some SOB. He states abdominal pain and distention. He initially states he passed gas but now it has stopped and he has not been able to. He denies any other sx. Legs feel good. Back is sore but manageable. Denies any perineal numbness/tingling. Objective - Vital Signs Vital signs: Vital Signs Temp 98.2 F 03/15/23 03:06 Pulse 101 H 03/15/23 03:06 Resp 20 03/15/23 03:06 BP 143/84 03/15/23 03:06 Pulse Ox 96 03/15/23 03:06 FiO2 Intake & Output 03/14/23 03/15/23 03/15/23 18:59 06:59 18:59 Intake Total 1080 917 Output Total 2425 1025 Balance -1345 -108 Weight 106.5 kg Intake: Intake, IV Titration 567 Amount Sodium Chloride 0.9% 50 567 ml @ 0 mls/hr IV .STK-MED ONE with ceFAZolin 2,000 mg Rx#:[id number] Oral 1080 350 Output: Urine 2425 1025 Other: Voiding Method Indwelling Catheter Indwelling Catheter - Exam Exam repeated today. Change Noted below. Physical Exam: -Patient is alert and oriented 3 appears well-nourished well-hydrated is in no acute distress. They do not appear septic. -There is TTP Of the abdomen and low back secondary to surgery no erythema or ecchymosis edema. Abdomen is more distended and is more taut today, but no pain with rebound. [-Incision is CDI, no EEE, no drainage] -Upper extremities show [5] out of 5 strength in all major muscle groups. [##EXCEPT] -Lower extremities with [5] out of 5 strength in all major muscle groups except hip flexion bilaterally as this causes pain currently -There is [FROM] that is [painless] of the b/l UE and LE in all major joints. negative straight leg raise negative logroll bilaterally -They are intact to light touch sensation in C5 to T1 and L2 to S1 nerve distribution. -DTR [2]/4 all upper and lower extremities -Patient has palpable distal pulses all 4 ext -Compartments are soft and compressible. -Patient shows a negative Melchor's [-Neg Hoffmans b/l] [-Neg Clonus b/l] [-Neg babinski b/l] Cranial nerves II through XII are grossly intact. - Labs CBC & Chem 7: 03/15/23 08:18 03/15/23 08:18 Labs: Abnormal Lab Results - Last 24 Hours (Table) 03/14/23 03/14/23 03/14/23 Range/Units 11:53 11:53 15:31 WBC (3.8-10.6) k/uL Sodium (137-145) mmol/L Chloride (98-107) mmol/L Glucose (74-99) mg/dL Plasma Lactic Acid Pepito 3.1 H* 2.7 H* (0.7-2.0) mmol/L Troponin I 0.146 H* (0.000-0.034) ng/mL 03/14/23 03/14/23 03/15/23 Range/Units 17:03 19:58 08:18 WBC 13.5 H (3.8-10.6) k/uL Sodium (137-145) mmol/L Chloride (98-107) mmol/L Glucose (74-99) mg/dL Plasma Lactic Acid Pepito (0.7-2.0) mmol/L Troponin I 0.784 H* 1.100 H* (0.000-0.034) ng/mL 03/15/23 Range/Units 08:18 WBC (3.8-10.6) k/uL Sodium 130 L (137-145) mmol/L Chloride 92 L (98-107) mmol/L Glucose 124 H (74-99) mg/dL Plasma Lactic Acid Pepito (0.7-2.0) mmol/L Troponin I (0.000-0.034) ng/mL Assessment and Plan Assessment: 67-year-old male postop day 2 Part I: L5-S1 ALIF with Part II: L4-S1 posteriolateral and interbody fusion. Likely Illeus Possible cardiac stress from surgery and pain Plan: -Appreciate reservoir engineering consultant and team management. Cardio recs. OK with Het gtt if Trops increase again. (they did) -Activity: Ambulate QID, OOB all meals, up and about, limit lifting bending twisting to less than 5 lbs. Use walker or cane if needed for stability. -Daily PT/OT, increase ambulation strength and balance. - brace ordered but does not need it to get up and move around -Pain control: evaluate pain medication likely change to schedule -Meds: [reviewed] -GI ppx: senna, Miralax, senna, mag citrate, will add one more tomorrow if he still has not had BM. Discussed with Dr. Quezada. If continues will need Gen sx consult. -FÉLIX dennis when up and about, bedside commode if needed -DVT PPX: continue with mechanical Hep gtt -Hygiene: Shower today. Maintain dressing clean and dry. Meticulous cleaning after BMs away from incision site -Encourage IS 10x/hr -Dispo: [Pending]
--- NOTE | 2023-03-16 08:07 | CA ---
Transthoracic Echo Report Name: Andre Mary Age: 67 Gender: M : 1955 Exam Date: 03/15/2023 11:08 Exam Location: [facility] Ht (in): 71 Wt (lb): 214 Ordering Physician: Dina Alejandre MD Attending/Referring Phys: Senior Sales Manager Kinsey Sterling RDCS Procedure CPT: Indications: trop Cardiac Hx: Technical Quality: Fair Contrast 1: Total Dose (mL): Contrast 2: Total Dose (mL): MEASUREMENTS (Male / Female) Normal Values 2D ECHO LV Diastolic Diameter PLAX 4.9 cm 4.2 - 5.9 / 3.9 - 5.3 cm LV Systolic Diameter PLAX 3.7 cm IVS Diastolic Thickness 1.5 cm 0.6 - 1.0 / 0.6 - 0.9 cm LVPW Diastolic Thickness 1.2 cm 0.6 - 1.0 / 0.6 - 0.9 cm LV Relative Wall Thickness 0.6 RV Internal Dim ED PLAX 3.7 cm LA Volume 66.7 cm??? 18 - 58 / 22 - 52 cm??? M-MODE Aortic Root Diameter MM 3.4 cm LA Systolic Diameter MM 4.5 cm LA Ao Ratio MM 1.3 AV Cusp Separation MM 1.9 cm DOPPLER AV Peak Velocity 141.3 cm/s AV Peak Gradient 8.0 mmHg AV Mean Velocity 112.8 cm/s AV Mean Gradient 5.3 mmHg AV Velocity Time Integral 23.6 cm LVOT Peak Velocity 56.8 cm/s LVOT Peak Gradient 1.3 mmHg LVOT Velocity Time Integral 10.7 cm MV E' Velocity 8.8 cm/s TR Peak Velocity 250.8 cm/s TR Peak Gradient 25.2 mmHg Right Ventricular Systolic Press 28.9 mmHg FINDINGS Left Ventricle Moderately increased left ventricular wall thickness. Left ventricular cavity size normal. Reduced global left ventricular systolic function. Left ventricular ejection fraction is estimated at 45-50 %. Right Ventricle Mild right ventricular dilatation. Right ventricular systolic pressure within normal limits. Right Atrium Normal right atrial size. Left Atrium Mildly increased left atrial volume. Mildly increased left atrial area. Mitral Valve Structurally normal mitral valve. Mild thickening/calcification of the anterior mitral valve leaflet. Mild mitral annular calcification. Mild mitral regurgitation. Aortic Valve Trileaflet aortic valve. No aortic valve stenosis or regurgitation. Diffuse thickening (sclerosis) of the aortic valve cusps without reduced excursion. Tricuspid Valve Structurally normal tricuspid valve. Mild tricuspid regurgitation. Pulmonic Valve Structurally normal pulmonic valve. Trace pulmonic regurgitation. Pericardium No pericardial effusion. Aorta Normal size aortic root and proximal ascending aorta. CONCLUSIONS Mild LV systolic dysfunction Mild mitral regurgitation Iritic sclerosis without significant stenosis Previewed by: Dr. Félix Schwartz MD (Electronically Signed) Final Date: 16 March 2023 08:06
--- NOTE | 2023-03-16 09:00 | P.PN ---
Subjective Progress Note Date: 03/16/23 Principal diagnosis: L5-S1 grade 2 spondylolisthesis L4 S1 spondylosis lower extremity radiculopathy Patient seen and examined this morning. Patient is resting comfortably in bed. Patient remains nothing by mouth due to postop ileus. He states that he has passed a small amount of gas this morning. Abdomen continues to be firm, distended, and tender to palpation. Anterior surgical incision to the midline abdomen is clean dry and intact. Posterior paralumbar surgical incisions, dressing has been changed this morning 03/16/2023. Encouraged patient to continue to work with physical therapy and to ambulate as tolerated. There is a n order for a 2-D echo to be performed today, awaiting results. Patient is cleared from orthopedic standpoint to start anticoagulation. Objective - Vital Signs Vital signs: Vital Signs Temp 97 F L 03/16/23 03:14 Pulse 113 H 03/16/23 03:14 Resp 18 03/16/23 03:14 BP 135/84 03/16/23 03:14 Pulse Ox 95 03/16/23 03:14 FiO2 Intake & Output 03/15/23 03/16/23 03/16/23 18:59 06:59 18:59 Intake Total 350 Output Total 500 425 Balance -500 -75 Weight 106 kg Intake: Intake, IV Titration 350 Amount ceFAZolin 2 gm In Sodium 350 Chloride 0.9% 50 ml @ 100 mls/hr IVPB Q8HR [facility] Rx# :[id number] Oral 0 Output: Urine 500 425 Other: Voiding Method Indwelling Catheter - Exam Physical Examination General: The patient is awake and alert, in no acute distress Skin: Skin is warm and dry with no obvious rashes or lesions. Anterior surgical incision midline lower abdomen, dressing is clean dry and intact. Posterior paralumbar incisions, dressings changed this morning 03/16/2023. Incisions are well approximated with rikki intact, scant amount of serosanguineous drainage present. Eye: Pupils are to the lower equal, round and reactive to light, extra-ocular movements are intact; there is normal conjunctiva bilaterally. Neck: The neck is supple, there is no tenderness and ROM intact. Cardiovascular: There is a regular rate and rhythm. No murmur, rub or gallop is appreciated. Respiratory: Lungs are clear to auscultation, respirations are non-labored, breath sounds are equal. Gastrointestinal: Firm, distended, tender abdomen. Back: There is no tenderness to palpation in the midline, paralumbar, parathoracic or buttocks region. There is no obvious deformity . Musculoskeletal: ROM limited secondary to pain and stiffness from surgical procedure. Muscle strength in all major muscle groups of bilateral upper extr emities 5/5, bilateral lower extremities 4/5. Neurological: CN 2-12 intact. There are no obvious motor or sensory deficits. Movement and coordination equal and intact. Sensory exam to light touch intact C5-T1 and intact from L2-S1. Reflexes 2/4 in bilateral upper and lower extremities. Negative Hoffmans, babinski, and clonus signs. Psychiatric: Cooperative, appropriate mood & affect, normal judgment. - Labs CBC & Chem 7: 03/15/23 08:18 03/15/23 08:18 Labs: Abnormal Lab Results - Last 24 Hours (Table) 03/15/23 03/15/23 03/15/23 Range/Units 08:18 08:18 08:18 WBC 13.5 H (3.8-10.6) k/uL Sodium 130 L (137-145) mmol/L Chloride 92 L (98-107) mmol/L Glucose 124 H (74-99) mg/dL Troponin I 1.660 H* (0.000-0.034) ng/mL Microbiology - Last 24 Hours (Table) 03/14/23 01:06 Blood Culture - Preliminary Blood Assessment and Plan Assessment: Postop day 3: Part I: L5-S1 ALIF with Part II: L4-S1 posteriolateral and interbody fusion. Post-Op Illeus Possible cardiac stress from surgery and pain Plan: -Appreciate specialty sales consultant and team management. -Activity: Ambulate QID, OOB all meals, up and about, limit lifting bending twisting to less than 5 lbs. Use walker or cane if needed for stability. -Daily PT/OT, increase ambulation strength and balance. -Brace when up and about, not needed in bed or chair -Pain control: Adequate at this time -Meds: reviewed -GI ppx: senna, reglan, mag citrate -DC dennis when up and about, bedside commode if needed -DVT PPX: OK to start anticoagulant -Hygiene: Shower today. Maintain dressing clean and dry. Meticulous cleaning after BMs away from the incision site -Drains: Maintain for now. DC later today pending out put and PT -Encourage IS 10x/hr -Dispo: Clinically pending *I reviewed and discussed this case with my attending Dr. Villa, whom has reviewed this chart and films and is in agreement with assessment and plan of care as outlined above. I have personally seen and examined the patient, performed the documentation and the assessment and plan as written. Number of minutes spent on the visit: 20m.
[2023-03-16] MEDS: ASPIRIN 81 MG PO SCH (09:41)
[2023-03-16] MEDS: GABAPENTIN 300 MG CAP PO SCH ×3 (09:41→21:12)
[2023-03-16] MEDS: PANTOPRAZOLE 40 MG TABLET PO SCH (09:41)
[2023-03-16] MEDS: SIMETHICONE 80 MG CHEWABLE PO SCH ×3 (09:41→21:12)
[2023-03-16] MEDS: PANTOPRAZOLE 40 MG/10 ML VIAL IVP SCH (09:51)
[2023-03-16 09:56] LABS: HCT 39.9 % (39.0-53.0); HGB 13.2 gm/dL (13.0-17.5); MCH 30.4 pg (25.0-35.0); MCV 92.3 fL (80.0-100.0); Mean Platelet Volume 7.5; Platelet Count 207 k/uL (150-450); RBC 4.32 m/uL (4.30-5.90); RDW 14.6 % (11.5-15.5); WBC 8.4 k/uL (3.8-10.6)
[2023-03-16 10:08] LABS: African American GFR (CKD) 77 (>60 ml/min/1.73 sqM); Anion Gap 12 mmol/L; Blood Urea Nitrogen 30 mg/dL (9-20); Calcium 8.6 mg/dL (8.4-10.2); Carbon Dioxide 25 mmol/L (22-30); Chloride 93 mmol/L (98-107); Glucose 153 mg/dL (74-99); Non-African American GFR(CKD) 67 (>60 ml/min/1.73 sqM); Potassium 4.3 mmol/L (3.5-5.1); Sodium 130 mmol/L (137-145)
--- NOTE | 2023-03-16 10:41 | P.PN ---
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 He does have a past medical history of lymphoma with stem cell transplant at this [facility]. Patient states he had a cardiac catheterization done many years ago and has subsequently had a stress test done prior to his stem cell transplant which was normal. Patient came into the hospital for elective back surgery performed on 03/13. Yesterday apparently he became diaphoretic and dizzy pain was 7/10. Troponins were ordered which came back elevated. Patient was transferred to the cardiac stepdown unit. Patient is complaining of severe pain in his abdomen, abdominal bloating. He states he has not had a bowel movement and not passing gas. We have been asked to evaluate patient for elevated troponins. EKG sinus rhythm with no acute ST changes, first-degree block 93 bpm Troponin 0.146, 0.74, 1.1. Sodium 129, potassium 4.3, BUN 21 creatinine 1.09. Lactic acid 3.1 with repeat 1.6. Leukocytosis 17 down to 13.5, hemoglobin 13.9, platelet count 188. Home cardiac medications: Magnesium 250 mg daily, Lopressor 50 mg twice daily, levothyroxine 250 g daily 03/16/2023 Patient examined this morning at the bedside. Patient denies chest pain or pressure. He denies shortness of breath. He continues to remain nothing by mouth. He is receiving IV push Lopressor every 8 hours. Echocardiogram completed revealing ejection fraction 45-50%, mild mitral regurgitation, and aortic sclerosis without significant stenosis. Telemetry reveals sinus tachycardia with a heart rate around 120. PHYSICAL EXAM: VITAL SIGNS: Reviewed. GENERAL: Well-developed in no acute distress. NECK: Supple. No JVD or thyromegaly LUNGS: Respirations even and unlabored. Lungs essentially clear to auscultation bilaterally. HEART: Regular rate and rhythm. S1 and S2 heard. EXTREMITIES: Normal range of motion. No clubbing or cyanosis. Peripheral pulses intact. No lower extremity edema ASSESSMENT: S/P Part I: L5-S1 ALIF with Part II: L4-S1 posteriolateral and interbody fusion Postoperative ileus Non-STEMI History of lymphoma PLAN: Continue current cardiac medications Patient currently on IV push Lopressor secondary to nothing by mouth status. Increase frequency from every 8 hours to every 6 hours Continue telemetry monitoring Patient will require stress testing when he is medically stable Further recommendations pending patient's course Patient to follow-up post discharge with Dr. Schwartz Nurse practitioner note has been reviewed by physician. Signing provider agrees with the documented findings, assessment, and plan of care. Objective - Vital Signs Vital signs: Vital Signs Temp 98.4 F 03/16/23 08:46 Pulse 129 H 03/16/23 09:40 Resp 16 03/16/23 08:46 BP 151/90 03/16/23 08:46 Pulse Ox 93 L 03/16/23 08:46 FiO2 Intake & Output 03/15/23 03/16/23 03/16/23 18:59 06:59 18:59 Intake Total 350 Output Total 500 425 Balance -500 -75 Weight 106 kg Intake: Intake, IV Titration 350 Amount ceFAZolin 2 gm In Sodium 350 Chloride 0.9% 50 ml @ 100 mls/hr IVPB Q8HR [facility] Rx# :[id number] Oral 0 Output: Urine 500 425 Other: Voiding Method Indwelling Catheter Indwelling Catheter - Labs CBC & Chem 7: 03/16/23 09:10 03/16/23 09:10 Labs: Abnormal Lab Results - Last 24 Hours (Table) 03/16/23 Range/Units 09:10 Sodium 130 L (137-145) mmol/L Chloride 93 L (98-107) mmol/L BUN 30 H (9-20) mg/dL Glucose 153 H (74-99) mg/dL Microbiology - Last 24 Hours (Table) 03/14/23 01:06 Blood Culture - Preliminary Blood
[2023-03-16] MEDS ORDERED: HEPARIN SODIUM 1,000 UN/ML (10ML VL) IV ONE (12:09)
[2023-03-16] MEDS ORDERED: HEPARIN SODIUM 1,000 UN/ML (10ML VL) IV PRN (12:09)
[2023-03-16] MEDS ORDERED: DILTIAZEM DRIP BOLUS FROM BAG 1 MG SOLN IV ONE (12:11)
--- NOTE | 2023-03-16 12:44 | P.PN ---
Subjective Progress Note Date: 03/16/23 Patient is a 67-year-old male with a PMH of hypothyroidism, hypertension, and degenerative disc disease with chronic lower back pain who was admitted for an elective lumbosacral fusion and decompression. The patient underwent a 2-stage procedure with anterior and posterior approaches on 03/13. 03/14 Patient seen and examined this morning. He appears to be in moderate distress and diaphoretic. He reports vertigo that is chronic in nature which worsened when PT attempted to get him out of bed. He does have right sided hearing loss which is chronic as well. Pain is uncontrolled, 7/10 in severity. He denies any chest pain, shortness of breath or palpitations. CBC this morning shows WBC count of 17.7 with neutrophilia. BMP shows sodium of 129, potassium of 5.7, chloride of 96, BUN of 21, glucose 124 and calcium of 8.3. Vital signs were obtained during the encounter. His BP is 105/56 with heart rate in the low 90s. He is afebrile. Lactic acid elevated at 3.1. Troponin elevated at 0.146. EKG showed sinus rhythm with first degree AV block with no ST elevation. CT L- spine showed post surgical changes L4-S1 and mild to moderate foraminal narrowing. 03/15 Patient was seen and examined. He continues to be diaphoretic. He is chest pain free. He reports vertigo with movement which he reports to be chronic in nature. Pain is 7/10 in his lower back. He reports nausea and abdominal distention. Not passing gas. CBC shows WBC count of 13.5. BMP shows Na 130, Cl 92, glucose 124. Lactic acid 1.6 on repeat after IV hydration overnight. Troponin continues to be elevated at 0.784, 1.1, 1.66. Case discussed with Dr. Villa yesterday, would hold Heparin drip if at all possible which Dr. Schwartz is agreeable with. Started on ASA yesterday. Cardiology is now on board. He is transferred to . KUB shows prominent small bowel loops and colon, correlated for illeus. 03/16 Patient was seen and examined. No acute events overnight. He continues to report abdominal distention and bilious vomiting. Able to pass gas. Patient noted to be tachycardic with heart rate in the 160s on telemetry. EKG confirms atrial fibrillation with RVR. CBC is unremarkable. BMP shows sodium of 130, chloride of 93, BUN of 30, glucose of 153. Started on Cardizem and heparin drip. Echocardiogram shows EF 45-50% with MR and aortic sclerosis. General: non toxic, moderate distress, appears at stated age, diaphoretic Derm: warm, dry Head: atraumatic, normocephalic, symmetric Eyes: EOMI, no lid lag, anicteric sclera Cardiovascular: Tachycardic, no murmur Lungs: CTA bilateral, no rhonchi, no rales , no accessory muscle use Ext: no gross muscle atrophy, no edema, no contractures GI: Sluggish bowel sounds heard. Distended. Non tender to palpation. Neuro: no focal neuro deficits Psych: Alert, oriented, appropriate affect NSTEMI AFib with RVR SIRS Hyponatremia Illeus Vertigo Resolved: Lactic acidosis, Hyperkalemia Based on my assessment of this patient, this patient meets a high complexity level of care. Patient has an acute diagnosis of NSTEMI that poses a threat to life or bodily function. NSTEMI: Patient will be continued on aspirin 81 mg PO QD. He is chest pain free. Echocardiogram ordered. Cardiology on board. Telemetry monitoring ordered. Started on heparin drip at 9.4 units/kg/hr. He will need an ischemic workup once stable. SIRS: He does meet sepsis criteria with leukocytosis, tachycardia and hypotension. No signs of active infection however. Leukocytosis could be reactive as well as due to steroids. Tachycardia possibly related to uncontrolled pain. Blood cultures are negative so far. AFib with RVR: As confirmed on EKG. Started on Heparin drip as above. Continue Cardizem drip at 5 mg/hr and Metoprolol 5 mg IV Q6H. Hyponatremia: Na 130. Improved with IV hydration. Likely hypovolemic. Illeus: As seen on KUB. NPO. General surgery on board. Vertigo: Likely due to Mnire's disease. Obtain CT brain to rule out intracranial process. I have reviewed the following storage consultant notes: Orthopedic surgery, Cardiology, General surgery note. I have reviewed the results of the following tests: CBC, BMP, Echo. I have ordered the following tests: CBC, BMP. CT brain ordered. Agree with KUB. I have discussed the care of this patient with the following independent historian: I have independently interpreted the following test below: EKG as above. I have discussed the management of this patient with the following physician: Objective - Vital Signs Vital signs: Vital Signs Temp 98.4 F 03/16/23 08:46 Pulse 168 H 03/16/23 11:59 Resp 18 03/16/23 11:59 BP 160/86 03/16/23 11:59 Pulse Ox 93 L 03/16/23 11:59 FiO2 Intake & Output 03/15/23 03/16/23 03/16/23 18:59 06:59 18:59 Intake Total 350 Output Total 500 425 Balance -500 -75 Weight 106 kg Intake: Intake, IV Titration 350 Amount ceFAZolin 2 gm In Sodium 350 Chloride 0.9% 50 ml @ 100 mls/hr IVPB Q8HR [facility] Rx# :[id number] Oral 0 Output: Urine 500 425 Other: Voiding Method Indwelling Catheter Indwelling Catheter - Labs CBC & Chem 7: 03/16/23 09:10 03/16/23 09:10 Labs: Abnormal Lab Results - Last 24 Hours (Table) 03/16/23 Range/Units 09:10 Sodium 130 L (137-145) mmol/L Chloride 93 L (98-107) mmol/L BUN 30 H (9-20) mg/dL Glucose 153 H (74-99) mg/dL Microbiology - Last 24 Hours (Table) 03/14/23 01:06 Blood Culture - Preliminary Blood
[2023-03-16 13:33] LABS: Partial Thromboplastin Time 25.2 sec (22.0-30.0); Prothrombin Time 10.9 sec (9.0-12.0)
[2023-03-16] MEDS: DILTIAZEM 125 MG in SODIUM CHLORIDE 0.9% 100 ML IV SCH (13:40)
--- NOTE | 2023-03-16 14:45 | CT ---
EXAMINATION TYPE: CT brain wo con DATE OF EXAM: 03/16/2023 COMPARISON: None INDICATION: Vertigo DLP: 1188.4 mGycm, Automated exposure control for dose reduction was used. CONTRAST: None CT of the brain is performed utilizing 3 mm thick sections through the posterior fossa and 3 mm thick sections through the remaining calvarium. Study is performed within 24 hours of arrival to the hosp [facility]. No abnormal hyperdensity is present to suggest an acute intracranial hemorrhage. No mass lesion is evident. No acute infarcts are evident. Ventricles and sulci are appropriate for the patient age. Paranasal sinuses and mastoid air cells within the [id number] are clear. IMPRESSIONS: 1. No acute intracranial process. Follow-up MRI can be performed as clinically indicated
[2023-03-16] MEDS: HEPARIN SOD,PORK IN 0.45% NACL 25,000 UNIT in 0.45% NACL 1 250ML.BAG IV SCH (15:00)
--- NOTE | 2023-03-16 15:00 | P.PN ---
Subjective Progress Note Date: 03/16/23 CHIEF COMPLAINT: Ileus HISTORY OF PRESENT ILLNESS: Patient status post lumbar spinal surgery. He has developed an ileus. He had one episode of vomiting this morning. Reports being distended. He is now having some flatus. Abdominal x-ray pending. Afebrile. Tachycardia. WBC down from 13.5-8.4 Hgb 13.2 sodium 1:30 potassium 4.3 creatinine 1.12 PHYSICAL EXAM: VITAL SIGNS: Reviewed GENERAL: Well-developed in no acute distress. HEENT: No sclera icterus. Extraocular movements grossly intact. Moist buccal mucosa. Head is atraumatic, normocephalic. Hears conversational speech. No nasal draina ge. NECK: Supple without lymphadenopathy. CHEST: Non-labored respirations and equal bilateral excursions. CARDIOVASCULAR: Palpable 2+ radial pulses. ABDOMEN: Soft. Nondistended. Nontender. MUSCULOSKELETAL: No clubbing or cyanosis. NEUROLOGIC: No focal or lateralizing signs. Cranial nerves II through XII grossly intact. PSYCH: Appropriate affect. Alert and oriented to person, place and time. SKIN: Well perfused. Good skin turgor. ASSESSMENT: 1. Ileus 2. Lumbar Spinal surgery 3. Hyponatremia PLAN: -Follow up on abdominal x-ray results -Continue Reglan -Continue gas drops -We'll hold laxative due to severe ileus and risk of aspiration and hold enemas due to recent surgery -Check magnesium level -Continue to correct sodium level -Increase activity as tolerated per spinal service recommendations -Continue supportive care Physician Director Search Marketing [employer]ies note has been reviewed by physician. Signing provider agrees with the documented findings, assessment, and plan of care. Objective - Vital Signs Vital signs: Vital Signs Temp 99.0 F 03/16/23 13:45 Pulse 111 H 03/16/23 13:43 Resp 18 03/16/23 11:59 BP 142/75 03/16/23 13:43 Pulse Ox 93 L 03/16/23 11:59 FiO2 Intake & Output 03/15/23 03/16/23 03/16/23 18:59 06:59 18:59 Intake Total 350 Output Total 500 425 Balance -500 -75 Weight 106 kg Intake: Intake, IV Titration 350 Amount ceFAZolin 2 gm In Sodium 350 Chloride 0.9% 50 ml @ 100 mls/hr IVPB Q8HR [facility] Rx# :[id number] Oral 0 Output: Urine 500 425 Other: Voiding Method Indwelling Catheter Indwelling Catheter - Labs CBC & Chem 7: 03/16/23 09:10 03/16/23 09:10 Labs: Abnormal Lab Results - Last 24 Hours (Table) 03/16/23 Range/Units 09:10 Sodium 130 L (137-145) mmol/L Chloride 93 L (98-107) mmol/L BUN 30 H (9-20) mg/dL Glucose 153 H (74-99) mg/dL Microbiology - Last 24 Hours (Table) 03/14/23 01:06 Blood Culture - Preliminary Blood
--- NOTE | 2023-03-16 16:29 | XR ---
EXAMINATION TYPE: XR abdomen 2V DATE OF EXAM: 03/16/2023 2:34 PM INDICATION: Patient age:Male; 67 years old; Reason for study: Ileus; COMPARISON: 03/14/2023 TECHNIQUE: Two views of the abdomen were obtained. FINDINGS/IMPRESSION: * Persistent findings compatible with postoperative ileus dilated loops of small and large bowel gas eous distention. Findings not significantly changed from 03/14/2023. * Postsurgical Changes of the spine and surgical clips present projecting of the abdomen.
[2023-03-16 20:41] LABS: Glucose,Whole Blood 170 mg/dL (70-110)
--- NOTE | 2023-03-16 21:18 | XR ---
EXAMINATION TYPE: XR chest 1V portable DATE OF EXAM: 03/16/2023 8:58 PM COMPARISON: Chest radiographs from 02/04/2023 TECHNIQUE: XR chest 1V portable Frontal view of the chest. CLINICAL INDICATION:Male, 67 years old with history of Resp distress; FINDINGS: Lungs/Pleura: There is no evidence of pleural effusion, focal consolidation, or pneumothorax. Pulmonary vascularity: Unremarkable. Heart/mediastinum: Cardiomediastinal silhouette is unremarkable. Musculoskeletal: No acute osseous pathology. Other findings: None Lines/Tubes: Right chest wall [id number] with coiled appearance. This is similar prior 01/27/2023 tip terminates in the superior vena cava. IMPRESSION: 1. No acute cardiopulmonary disease/process. 2. Coiled appearance of the right chest wall Zelocb-[id number] tubing.
[2023-03-17] MEDS: METOPROLOL TARTRATE 5 MG/5 ML VIAL IVP SCH ×5 (00:06→23:54)
[2023-03-17] MEDS: NITROGLYCERIN OINT 1 INCH/GM PACKET TOPICAL SCH ×2 (00:07→05:51)
[2023-03-17] MEDS: HYDROmorphone 1 MG/ML 1 ML SYRINGE IVP PRN (01:43)
[2023-03-17] MEDS: METOCLOPRAMIDE 5 MG/ML 2 ML VIAL IVP SCH ×4 (05:13→20:47)
[2023-03-17] MEDS: HYDROmorphone 0.5 MG/0.5 ML SYRINGE IVP PRN ×4 (05:19→23:56)
[2023-03-17] MEDS: LEVOTHYROXINE 125 MCG TAB PO SCH (05:50)
[2023-03-17] MEDS: DILTIAZEM 125 MG in SODIUM CHLORIDE 0.9% 100 ML IV SCH ×2 (08:18→21:09)
[2023-03-17] MEDS: PANTOPRAZOLE 40 MG/10 ML VIAL IVP SCH (08:34)
--- NOTE | 2023-03-17 08:53 | P.PN ---
Subjective Progress Note Date: 03/17/23 Principal diagnosis: L5-S1 grade 2 spondylolisthesis L4 S1 spondylosis lower extremity radiculopathy Patient seen and examined this morning. Patient is resting comfortably in bed. Patient remains nothing by mouth due to postop ileus. He states that he has passed a small amount of gas this morning. He continues to be burping as well. NG tube was placed yesterday, 03/16/23 with a total output of 600ml documented this morning. Abdomen continues to be firm, slightly less distended, and tender to palpation. Anterior surgical dressing and Posterior paralumbar surgical dressing is CDI. Encouraged patient to continue to work with physical therapy and to ambulate as tolerated. Objective - Vital Signs Vital signs: Vital Signs Temp 98.4 F 03/17/23 07:27 Pulse 107 H 03/17/23 07:27 Resp 18 03/17/23 07:27 BP 188/103 03/17/23 07:27 Pulse Ox 96 03/17/23 07:39 FiO2 Intake & Output 03/16/23 03/17/23 03/17/23 18:59 06:59 18:59 Intake Total 208.501 Output Total 400 1200 Balance -400 -991.499 Intake: Intake, IV Titration 208.501 Amount Diltiazem 125 mg In 35.417 Sodium Chloride 0.9% 100 ml @ 5 MG/HR 5 mls/hr IV .Q24H [facility] Rx#:[id number] Heparin Sod,Pork in 0.45% 173.084 NaCl 25,000 unit In 0.45 % NaCl 1 250ml.bag @ 9.4 UNITS/KG/HR 9.964 mls/hr IV .Q24H [facility] Rx#: [id number] Output: Gastric Drainage 600 Urine 400 600 Other: Voiding Method Indwelling Catheter Indwelling Catheter Indwelling Catheter - Labs CBC & Chem 7: 03/16/23 09:10 03/16/23 09:10 Labs: Abnormal Lab Results - Last 24 Hours (Table) 03/16/23 03/16/23 03/17/23 Range/Units 09:10 20:39 04:49 APTT (22.0-30.0) sec Sodium 130 L (137-145) mmol/L Chloride 93 L (98-107) mmol/L BUN 30 H (9-20) mg/dL Glucose 153 H (74-99) mg/dL POC Glucose (mg/dL) 170 H (70-110) mg/dL Magnesium 2.4 H (1.6-2.3) mg/dL 03/17/23 Range/Units 04:49 APTT 31.8 H (22.0-30.0) sec Sodium (137-145) mmol/L Chloride (98-107) mmol/L BUN (9-20) mg/dL Glucose (74-99) mg/dL POC Glucose (mg/dL) (70-110) mg/dL Magnesium (1.6-2.3) mg/dL Microbiology - Last 24 Hours (Table) 03/14/23 01:06 Blood Culture - Preliminary Blood Assessment and Plan Assessment: Postop day 4: Part I: L5-S1 ALIF with Part II: L4-S1 posteriolateral and interbody fusion. Post-Op Illeus Possible cardiac stress from surgery and pain Plan: -Appreciate senior compensation consultant and team management. -Activity: Ambulate QID, OOB all meals, up and about, limit lifting bending twisting to less than 5 lbs. Use walker or cane if needed for stability. -Daily PT/OT, increase ambulation strength and balance. -Brace when up and about, not needed in bed or chair -Pain control: Adequate at this time -Meds: reviewed -GI ppx: senna, reglan, mag citrate -DC dennis when up and about, bedside commode if needed -DVT PPX: Heparin -Hygiene: Shower today. Maintain dressing clean and dry. Meticulous cleaning after BMs away from the incision site -Encourage IS 10x/hr -Dispo: Clinically pending *I reviewed and discussed this case with my attending Dr. Villa, whom has reviewed this chart and films and is in agreement with assessment and plan of care as outlined above. I have personally seen and examined the patient, performed the documentation and the assessment and plan as written. Number of minutes spent on the visit: 20m.
[2023-03-17] MEDS ORDERED: cloNIDine 0.2 MG/24HR PATCH TRANSDERM SCH (09:00)
[2023-03-17] MEDS: HEPARIN SOD,PORK IN 0.45% NACL 25,000 UNIT in 0.45% NACL 1 250ML.BAG IV SCH ×2 (09:33→10:23)
[2023-03-17] MEDS: SIMETHICONE 80 MG CHEWABLE PO SCH ×3 (09:34→19:49)
[2023-03-17] MEDS: ASPIRIN 81 MG PO SCH (09:34)
[2023-03-17] MEDS: GABAPENTIN 300 MG CAP PO SCH ×3 (09:34→19:49)
--- NOTE | 2023-03-17 10:12 | XR ---
EXAMINATION TYPE: XR chest 1V portable DATE OF EXAM: 03/17/2023 9:55 AM COMPARISON: Chest radiographs from 03/16/2023 TECHNIQUE: XR chest 1V portable Frontal view of the chest. CLINICAL INDICATION:Male, 67 years old with history of NG placement; FINDINGS: Lungs/Pleura: There is no evidence of pleural effusion, focal consolidation, or pneumothorax. Pulmonary vascularity: Unremarkable. Heart/mediastinum: Cardiomediastinal silhouette is unremarkable. Musculoskeletal: No acute osseous pathology. Nasogastric tube with distal tip and side-port projecting under the diaphragm. Similar tortuosity to the Gqsdqk-l-Murf with distal tip in the superior vena cava. IMPRESSION: Nasogastric tube in appropriate position. Similar appearance of Sfonbo-j-Imhv
--- NOTE | 2023-03-17 11:44 | P.PN ---
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 He does have a past medical history of lymphoma with stem cell transplant at this [facility]. Patient states he had a cardiac catheterization done many years ago and has subsequently had a stress test done prior to his stem cell transplant which was normal. Patient came into the hospital for elective back surgery performed on 03/13. Yesterday apparently he became diaphoretic and dizzy pain was 7/10. Troponins were ordered which came back elevated. Patient was transferred to the cardiac stepdown unit. Patient is complaining of severe pain in his abdomen, abdominal bloating. He states he has not had a bowel movement and not passing gas. We have been asked to evaluate patient for elevated troponins. EKG sinus rhythm with no acute ST changes, first-degree block 93 bpm Troponin 0.146, 0.74, 1.1. Sodium 129, potassium 4.3, BUN 21 creatinine 1.09. Lactic acid 3.1 with repeat 1.6. Leukocytosis 17 down to 13.5, hemoglobin 13.9, platelet count 188. Home cardiac medications: Magnesium 250 mg daily, Lopressor 50 mg twice daily, levothyroxine 250 g daily 03/16/2023 Patient examined this morning at the bedside. Patient denies chest pain or pressure. He denies shortness of breath. He continues to remain nothing by mouth. He is receiving IV push Lopressor every 8 hours. Echocardiogram completed revealing ejection fraction 45-50%, mild mitral regurgitation, and aortic sclerosis without significant stenosis. Telemetry reveals sinus tachycardia with a heart rate around 120. Addendum entered and electronically signed by Christina Laureano NP-C 03/16/23 12:11: Patients tachycardia worsening this afternoon with heart rates into the 160s EKG completed revealing atrial fibrillation Patient remains NPO. He is receiving IV metoprolol Per orthopedics dictation, patient is cleared to begin anticoagulation from t heir standpoint Will begin IV heparin and IV cardizem drip Will transition to oral dosing when patient able to tolerate PO medications 03/17/2023 Patient examined this point. Patient is sitting up in the chair. He remains nothing by mouth. Patient has an NG tube noted. He denies chest pain or pre ssure. Denies shortness of breath. Telemetry reveals sinus tachycardia with a heart rate around 115. He remains on IV heparin. He also remains on a Cardizem drip at 10 mg an hour. He is receiving IV push metoprolol every 6 hours PHYSICAL EXAM: VITAL SIGNS: Reviewed. GENERAL: Well-developed in no acute distress. NECK: Supple. No JVD or thyromegaly LUNGS: Respirations even and unlabored. Lungs essentially clear to auscultation bilaterally. HEART: Regular rate and rhythm. S1 and S2 heard. EXTREMITIES: Normal range of motion. No clubbing or cyanosis. Peripheral puls es intact. No lower extremity edema ASSESSMENT: S/P Part I: L5-S1 ALIF with Part II: L4-S1 posteriolateral and interbody fusion Postoperative ileus New-onset paroxysmal atrial fibrillation/typical atrial flutter Non-STEMI History of lymphoma PLAN: Continue current cardiac medications Into new IV push Lopressor secondary to nothing by mouth status. Continue IV heparin Continue IV Cardizem Continue telemetry monitoring Patient will require stress testing when he is medically stable Further recommendations pending patient's course Patient to follow-up post discharge with Dr. Schwartz Nurse practitioner note has been reviewed by physician. Signing provider agrees with the documented findings, assessment, and plan of care. Objective - Vital Signs Vital signs: Vital Signs Temp 98.4 F 03/17/23 07:27 Pulse 107 H 03/17/23 07:27 Resp 18 03/17/23 07:27 BP 188/103 03/17/23 07:27 Pulse Ox 96 03/17/23 07:39 FiO2 Intake & Output 03/16/23 03/17/23 03/17/23 18:59 06:59 18:59 Intake Total 298.084 72.098 Output Total 400 1200 Balance -400 -901.916 72.098 Intake: Intake, IV Titration 298.084 72.098 Amount Diltiazem 125 mg In 125.000 Sodium Chloride 0.9% 100 ml @ 5 MG/HR 5 mls/hr IV .Q24H [facility] Rx#:[id number] Heparin Sod,Pork in 0.45% 173.084 72.098 NaCl 25,000 unit In 0.45 % NaCl 1 250ml.bag @ 9.4 UNITS/KG/HR 9.964 mls/hr IV .Q24H [facility] Rx#: [id number] Output: Gastric Drainage 600 Urine 400 600 Other: Voiding Method Indwelling Catheter Indwelling Catheter Indwelling Catheter - Labs CBC & Chem 7: 03/16/23 09:10 03/16/23 09:10 Labs: Abnormal Lab Results - Last 24 Hours (Table) 03/16/23 03/17/23 03/17/23 Range/Units 20:39 04:49 04:49 APTT 31.8 H (22.0-30.0) sec POC Glucose (mg/dL) 170 H (70-110) mg/dL Magnesium 2.4 H (1.6-2.3) mg/dL Microbiology - Last 24 Hours (Table) 03/14/23 01:06 Blood Culture - Preliminary Blood
--- NOTE | 2023-03-17 13:11 | P.PN ---
Subjective Progress Note Date: 03/17/23 Hospital course Patient is a 67-year-old male with a PMH of hypothyroidism, hypertension, and d egenerative disc disease with chronic lower back pain who was admitted for an elective lumbosacral fusion and decompression. The patient underwent a 2-stage procedure with anterior and posterior approaches on 03/13. After surgery patient developed ileus and A. fib with RVR and also found to have non-ST elevation GA. Gen. surgery and cardiology are following the patient Subjective Patient says that his vertigo has resolved. He states that he sat in the chair couple times and did not feel dizzy. Patient states that he is also been walking as far as his IV line can go. Patient also reports that he is passing gas. He states that he still has abdominal pain. Patient also continues to have high output from his NG tube. Physical exam General examination - Alert and Oriented 3 in NAD Heart - + S1S2 no murmurs Lungs - Clear to auscultation Abdomen diffuse tenderness to palpate +ve BS, + NG tube Extremities - No edema PHARMACEUTICAL OFFICER - Moving all 4 extremities spontaneously Psych - Calm and cooperative Assessment and Plan: Non-ST elevation GA A. fib with RVR SIRS criteria Hyponatremia Ileus Vertigo: Resolved Lactic acidosis: Resolved Hyperkalemia: Resolved Based on my assessment of this patient, this patient meets a high complexity level of care Patient has an acute diagnosis of non-ST elevation GA that poses threat to life bodily function Regarding the non-ST elevation GA cardiology recommends stress test once patient is medically stable. Echocardiogram shows mild LV systolic dysfunction and mild mitral regurgitation. Resume aspirin 81 mg by mouth daily Regarding the A. fib with RVR Resume Cardizem drip and heparin drip. Regarding the SIRS criteria likely due to his ileus. Patient has no signs or symptoms of infection. Regarding his hypernatremia this is likely due to hypovolemia. Sodium level is stable. Regarding the ileus general surgery is managing. Patient currently on NG tube. Avoid opioids as much as possible. Encourage ambulation. Patient started on Reglan 10 mg IV every 6 hours. Patient's vertical has resolved and his CT head was reviewed and was unremarkable. CODE STATUS: FULL CODE. DVT prophylaxis: Heparin drip Anticipated discharge place: Pending clinical course Anticipated discharge time: Pending clinical course I have reviewed the following new home sales consultant notes: Cardiology note I have reviewed the results of the following tests: None I have ordered the following tests: CBC and BMP and magnesium I have discussed the care of this patient with the following independent historian: None I have independently interpreted the following test below: CT head I have discussed the management of this patient with the following physician: None This patient has a high risk of morbidity due to the following reasons: Non-ST elevation GA Objective - Vital Signs Vital signs: Vital Signs Temp 98.4 F 03/17/23 07:27 Pulse 107 H 03/17/23 11:56 Resp 16 03/17/23 11:56 BP 177/88 03/17/23 11:56 Pulse Ox 96 03/17/23 12:03 FiO2 Intake & Output 03/16/23 03/17/23 03/17/23 18:59 06:59 18:59 Intake Total 298.084 72.098 Output Total 400 1200 Balance -400 -901.916 72.098 Intake: Intake, IV Titration 298.084 72.098 Amount Diltiazem 125 mg In 125.000 Sodium Chloride 0.9% 100 ml @ 5 MG/HR 5 mls/hr IV .Q24H [facility] Rx#:[id number] Heparin Sod,Pork in 0.45% 173.084 72.098 NaCl 25,000 unit In 0.45 % NaCl 1 250ml.bag @ 9.4 UNITS/KG/HR 9.964 mls/hr IV .Q24H [facility] Rx#: [id number] Output: Gastric Drainage 600 Urine 400 600 Other: Voiding Method Indwelling Catheter Indwelling Catheter Indwelling Catheter - Labs CBC & Chem 7: 03/16/23 09:10 03/16/23 09:10 Labs: Abnormal Lab Results - Last 24 Hours (Table) 03/16/23 03/17/23 03/17/23 Range/Units 20:39 04:49 04:49 APTT 31.8 H (22.0-30.0) sec POC Glucose (mg/dL) 170 H (70-110) mg/dL Magnesium 2.4 H (1.6-2.3) mg/dL 03/17/23 Range/Units 12:03 APTT 36.5 H (22.0-30.0) sec POC Glucose (mg/dL) (70-110) mg/dL Magnesium (1.6-2.3) mg/dL Microbiology - Last 24 Hours (Table) 03/14/23 01:06 Blood Culture - Preliminary Blood
--- NOTE | 2023-03-17 14:22 | P.PN ---
Progress Note - Text Progress Note Date: 03/17/[address] Cohen's recommendations, Eunice has been discontinued due to severe ileus.
--- NOTE | 2023-03-17 14:22 | P.PN ---
Subjective Progress Note Date: 03/17/23 CHIEF COMPLAINT: Ileus HISTORY OF PRESENT ILLNESS: Patient status post lumbar spinal surgery. He has developed an ileus. Patient had increased nausea during the night and required NG tube to be placed. He's had no bowel movement. He has had flatus. Afebrile. Magnesium 2.4 abdominal x-ray shows persistent postoperative ileus NG tube 600 mL output through the night and 300 mL output today PHYSICAL EXAM: VITAL SIGNS: Reviewed GENERAL: Well-developed in no acute distress. HEENT: No sclera icterus. Extraocular movements grossly intact. Moist buccal mucosa. Head is atraumatic, normocephalic. Hears conversational speech. No nasal drainage. NECK: Supple without lymphadenopathy. CHEST: Non-labored respirations and equal bilateral excursions. CARDIOVASCULAR: Palpable 2+ radial pulses. ABDOMEN: Soft. Distended. Diffuse tenderness MUSCULOSKELETAL: No clubbing or cyanosis. NEUROLOGIC: No focal or lateralizing signs. Cranial nerves II through XII grossly intact. PSYCH: Appropriate affect. Alert and oriented to person, place and time. SKIN: Well perfused. Good skin turgor. ASSESSMENT: 1. Severe Ileus 2. Lumbar Spinal surgery 3. Hyponatremia PLAN: -Continue NG tube for decompression -Keep patient nothing by mouth -Recommend discontinuing the [place] because this could contribute to patient's ileus -Continue Reglan -Continue gas drops -We'll hold laxative due to severe ileus and risk of aspiration and hold enemas due to recent surgery -Encouraged patient to ambulate Physician Financial Services Director note has been reviewed by physician. Signing provider agrees with the documented findings, assessment, and plan of care. Objective - Vital Signs Vital signs: Vital Signs Temp 98.4 F 03/17/23 07:27 Pulse 105 H 03/17/23 14:17 Resp 16 03/17/23 14:17 BP 179/97 03/17/23 14:17 Pulse Ox 96 03/17/23 14:17 FiO2 Intake & Output 03/16/23 03/17/23 03/17/23 18:59 06:59 18:59 Intake Total 298.084 134.673 Output Total 400 1200 Balance -400 -901.916 134.673 Intake: Intake, IV Titration 298.084 134.673 Amount Diltiazem 125 mg In 125.000 Sodium Chloride 0.9% 100 ml @ 5 MG/HR 5 mls/hr IV .Q24H [facility] Rx#:[id number] Heparin Sod,Pork in 0.45% 173.084 134.673 NaCl 25,000 unit In 0.45 % NaCl 1 250ml.bag @ 9.4 UNITS/KG/HR 9.964 mls/hr IV .Q24H [facility] Rx#: [id number] Output: Gastric Drainage 600 Urine 400 600 Other: Voiding Method Indwelling Catheter Indwelling Catheter Indwelling Catheter - Labs CBC & Chem 7: 03/16/23 09:10 03/16/23 09:10 Labs: Abnormal Lab Results - Last 24 Hours (Table) 03/16/23 03/17/23 03/17/23 Range/Units 20:39 04:49 04:49 APTT 31.8 H (22.0-30.0) sec POC Glucose (mg/dL) 170 H (70-110) mg/dL Magnesium 2.4 H (1.6-2.3) mg/dL 03/17/23 Range/Units 12:03 APTT 36.5 H (22.0-30.0) sec POC Glucose (mg/dL) (70-110) mg/dL Magnesium (1.6-2.3) mg/dL Microbiology - Last 24 Hours (Table) 03/14/23 01:06 Blood Culture - Preliminary Blood
[2023-03-18] MEDS: HEPARIN SOD,PORK IN 0.45% NACL 25,000 UNIT in 0.45% NACL 1 250ML.BAG IV SCH ×2 (02:14→16:36)
[2023-03-18] MEDS: METOCLOPRAMIDE 5 MG/ML 2 ML VIAL IVP SCH ×4 (03:54→22:02)
[2023-03-18 05:54] LABS: African American GFR (CKD) 88 (>60 ml/min/1.73 sqM); Anion Gap 8 mmol/L; Carbon Dioxide 27 mmol/L (22-30); Chloride 104 mmol/L (98-107); Glucose 136 mg/dL (74-99); Non-African American GFR(CKD) 77 (>60 ml/min/1.73 sqM); Potassium 3.5 mmol/L (3.5-5.1); Sodium 139 mmol/L (137-145)
[2023-03-18 05:55] LABS: Blood Urea Nitrogen 28 mg/dL (9-20); Magnesium 2.2 mg/dL (1.6-2.3)
[2023-03-18 06:13] LABS: Basophils % (A) 0 %; Eosinophils % (A) 1 %; HCT 33.7 % (39.0-53.0); HGB 11.2 gm/dL (13.0-17.5); Lymphocytes # (A) 0.4 k/uL (1.0-4.8); Lymphocytes % (A) 6 %; MCH 30.6 pg (25.0-35.0); MCHC 33.1 g/dL (31.0-37.0); MCV 92.2 fL (80.0-100.0); Mean Platelet Volume 8.5; Monocytes # (A) 0.6 k/uL (0-1.0); Monocytes % (A) 11 %; Neutrophils # (A) 4.9 k/uL (1.3-7.7); Neutrophils % (A) 80 %; Platelet Count 246 k/uL (150-450); RBC 3.65 m/uL (4.30-5.90); RDW 15.2 % (11.5-15.5); WBC 6.1 k/uL (3.8-10.6)
[2023-03-18] MEDS: LEVOTHYROXINE 125 MCG TAB PO SCH (06:26)
[2023-03-18] MEDS: METOPROLOL TARTRATE 5 MG/5 ML VIAL IVP SCH ×3 (06:29→19:36)
[2023-03-18] MEDS: SIMETHICONE 80 MG CHEWABLE PO SCH ×2 (09:19→19:46)
[2023-03-18] MEDS: ASPIRIN 81 MG PO SCH (09:19)
[2023-03-18] MEDS: GABAPENTIN 300 MG CAP PO SCH ×3 (09:19→21:29)
--- NOTE | 2023-03-18 09:24 | P.PN ---
Subjective Progress Note Date: 03/18/23 Principal diagnosis: L5-S1 grade 2 spondylolisthesis L4 S1 spondylosis lower extremity radiculopathy Patient seen and examined this morning. Assisted patient to the side of bed and back to bed. He tolerated activity well. Patient remains nothing by mouth due to postop ileus. He states that he has been passing gas, no BM. He continues to be burping as well. NG tube remains patent. Abdomen continues to be less firm, slightly less distended today. Anterior surgical dressing and Posterior paralumbar surgical dressing has been changed this morning. Encouraged patient to continue to work with physical therapy and to ambulate as tolerated. Patient is requesting ice chips or sips of water, discussed that he needs to clear this request with GI. Otherwise patient is doing well from Orthopedic standpoint. Objective - Vital Signs Vital signs: Vital Signs Temp 98.5 F 03/17/23 20:00 Pulse 111 H 03/18/23 04:00 Resp 20 03/18/23 04:00 BP 162/94 03/18/23 04:00 Pulse Ox 94 L 03/18/23 04:00 FiO2 Intake & Output 03/17/23 03/18/23 03/18/23 18:59 06:59 18:59 Intake Total 134.673 398.497 Output Total 1275 825 Balance -1140.327 -426.503 Intake: Intake, IV Titration 134.673 398.497 Amount Diltiazem 125 mg In 125 Sodium Chloride 0.9% 100 ml @ 5 MG/HR 5 mls/hr IV .Q24H [facility] Rx#:[id number] Heparin Sod,Pork in 0.45% 134.673 273.497 NaCl 25,000 unit In 0.45 % NaCl 1 250ml.bag @ 9.4 UNITS/KG/HR 9.964 mls/hr IV .Q24H [facility] Rx#: [id number] Output: Gastric Drainage 350 Urine 925 825 Other: Voiding Method Indwelling Catheter Indwelling Catheter - Exam Physical Examination General: The patient is awake and alert, in no acute distress Skin: Skin is warm and dry with no obvious rashes or lesions. Anterior surgical incision midline lower abdomen, dressing is clean dry and intact. Posterior paralumbar incisions, dressings changed this morning 03/18/2023. Incisions are well approximated with rikki intact, scant amount of serous dr ainage present. Eye: Pupils are to the lower equal, round and reactive to light, extra-ocular movements are intact; there is normal conjunctiva bilaterally. Neck: The neck is supple, there is no tenderness and ROM intact. Cardiovascular: There is a regular rate and rhythm. No murmur, rub or gallop is appreciated. Respiratory: Lungs are clear to auscultation, respirations are non-labored, breath sounds are equal. Gastrointestinal: Firm, distended, tender abdomen. Back: There is no tenderness to palpation in the midline, paralumbar, parathoracic or buttocks region. There is no obvious deformity . Musculoskeletal: ROM limited secondary to pain and stiffness from surgical procedure. Muscle strength in all major muscle groups of bilateral upper extremities 5/5, bilateral lower extremities 4/5. Neurological: CN 2-12 intact. There are no obvious motor or sensory deficits. Movement and coordination equal and intact. Sensory exam to light touch intact C5-T1 and intact from L2-S1. Reflexes 2/4 in bilateral upper and lower extremities. Negative Hoffmans, babinski, and clonus signs. Psychiatric: Cooperative, appropriate mood & affect, normal judgment. - Labs CBC & Chem 7: 03/18/23 05:24 03/18/23 05:24 Labs: Abnormal Lab Results - Last 24 Hours (Table) 03/17/23 03/17/23 03/18/23 Range/Units 12:03 22:11 05:24 RBC 3.65 L (4.30-5.90) m/uL Hgb 11.2 L (13.0-17.5) gm/dL Hct 33.7 L (39.0-53.0) % Lymphocytes # 0.4 L (1.0-4.8) k/uL APTT 36.5 H 49.0 H (22.0-30.0) sec BUN (9-20) mg/dL Glucose (74-99) mg/dL Calcium (8.4-10.2) mg/dL 03/18/23 03/18/23 Range/Units 05:24 05:24 RBC (4.30-5.90) m/uL Hgb (13.0-17.5) gm/dL Hct (39.0-53.0) % Lymphocytes # (1.0-4.8) k/uL APTT 42.7 H (22.0-30.0) sec BUN 28 H (9-20) mg/dL Glucose 136 H (74-99) mg/dL Calcium 8.0 L (8.4-10.2) mg/dL Microbiology - Last 24 Hours (Table) 03/14/23 01:06 Blood Culture - Preliminary Blood Assessment and Plan Assessment: Postop day 5: Part I: L5-S1 ALIF with Part II: L4-S1 posteriolateral and interbody fusion. Post-Op Illeus Possible cardiac stress from surgery and pain Plan: -Appreciate jury consultant and team management. -Activity: Ambulate QID, OOB all meals, up and about, limit lifting bending twisting to less than 5 lbs. Use walker or cane if needed for stability. -Daily PT/OT, increase ambulation strength and balance. -Brace when up and about, not needed in bed or chair -Pain control: Adequate at this time -Meds: reviewed -GI ppx: senna, reglan, mag citrate -DC dennis when up and about, bedside commode if needed -DVT PPX: Heparin -Hygiene: Shower today. Maintain dressing clean and dry. Meticulous cleaning after BMs away from the incision site -Encourage IS 10x/hr -Dispo: Clinically pending *I reviewed and discussed this case with my attending Dr. Villa, whom has reviewed this chart and films and is in agreement with assessment and plan of care as outlined above. I have personally seen and examined the patient, performed the documentation and the assessment and plan as written. Number of minutes spent on the visit: 20m.
[2023-03-18] MEDS: PANTOPRAZOLE 40 MG/10 ML VIAL IVP SCH (09:42)
[2023-03-18] MEDS ORDERED: diphenhydrAMINE 50 MG/ML 1 ML VIAL IVP PRN (10:13)
--- NOTE | 2023-03-18 10:51 | P.PN ---
Subjective HISTORY OF PRESENT ILLNESS: This is a 67-year-old male with no previous cardiac history, does not follow with a clerk general office. He does have a past medical history of lymphoma with stem cell transplant at this [facility]. Patient states he had a cardiac catheterization done many years ago and has subsequently had a stress test done prior to his stem cell transplant which was normal. Patient came into the hospital for elective back surgery performed on 03/13. Yesterday apparently he became diaphoretic and dizzy pain was 7/10. Troponins were ordered which came back elevated. Patient was transferred to the cardiac stepdown unit. Patient is complaining of severe pain in his abdomen, abdominal bloating. He states he has not had a bowel movement and not passing gas. We have been asked to evaluate patient for elevated troponins. EKG sinus rhythm with no acute ST changes, first-degree block 93 bpm Troponin 0.146, 0.74, 1.1. Sodium 129, potassium 4.3, BUN 21 creatinine 1.09. Lactic acid 3.1 with repeat 1.6. Leukocytosis 17 down to 13.5, hemoglobin 13.9, platelet count 188. Home cardiac medications: Magnesium 250 mg daily, Lopressor 50 mg twice daily, levothyroxine 250 g daily 03/16/2023 Patient examined this morning at the bedside. Patient denies chest pain or pressure. He denies shortness of breath. He continues to remain nothing by mouth. He is receiving IV push Lopressor every 8 hours. Echocardiogram completed revealing ejection fraction 45-50%, mild mitral regurgitation, and aortic sclerosis without significant stenosis. Telemetry reveals sinus tachycardia with a heart rate around 120. Addendum entered and electronically signed by Christina Laureano NP-C 03/16/23 12:11: Patients tachycardia worsening this afternoon with heart rates into the 160s EKG completed revealing atrial fibrillation Patient remains NPO. He is receiving IV metoprolol Per orthopedics dictation, patient is cleared to begin anticoagulation from t heir standpoint Will begin IV heparin and IV cardizem drip Will transition to oral dosing when patient able to tolerate PO medications 03/17/2023 Patient examined this morning. Patient is sitting up in the chair. He remains nothing by mouth. Patient has an NG tube noted. He denies chest pain or p ressure. Denies shortness of breath. Telemetry reveals sinus tachycardia with a heart rate around 115. He remains on IV heparin. He also remains on a Cardizem drip at 10 mg an hour. He is receiving IV push metoprolol every 6 hours 03/18/2023 Patient examined this morning. He is laying in bed comfortable he. He continues to have NG tube and is nothing by mouth. He states he is passing gas and requesting to have his diet advanced. Telemetry reveals sinus tachycardia with heart rate around 115. He remains on IV heparin and IV Cardizem. Systolic blood pressure in the 160s. Clonidine patch was added yesterday. PHYSICAL EXAM: VITAL SIGNS: Reviewed. GENERAL: Well-developed in no acute distress. NECK: Supple. No JVD or thyromegaly LUNGS: Respirations even and unlabored. Lungs essentially clear to auscultation bilaterally. HEART: Tachycardic. Regular rate and rhythm. S1 and S2 heard. EXTREMITIES: Normal range of motion. No clubbing or cyanosis. Peripheral pulses intact. No lower extremity edema ASSESSMENT: S/P Part I: L5-S1 ALIF with Part II: L4-S1 posteriolateral and interbody fusion Postoperative ileus New-onset paroxysmal atrial fibrillation/typical atrial flutter Non-STEMI History of lymphoma PLAN: Continue current cardiac medications Continue IV push Lopressor secondary to nothing by mouth status. Continue IV heparin Continue IV Cardizem Continue telemetry monitoring Patient will require stress testing when he is medically stable Further recommendations pending patient's course Patient to follow-up post discharge with Dr. Schwartz Nurse practitioner note has been reviewed by physician. Signing provider agrees with the documented findings, assessment, and plan of care. Objective - Vital Signs Vital signs: Vital Signs Temp 98.5 F 03/17/23 20:00 Pulse 111 H 03/18/23 04:00 Resp 20 03/18/23 04:00 BP 162/94 03/18/23 04:00 Pulse Ox 94 L 03/18/23 04:00 FiO2 Intake & Output 03/17/23 03/18/23 03/18/23 18:59 06:59 18:59 Intake Total 134.673 398.497 Output Total 1275 825 Balance -1140.327 -426.503 Weight 106 kg Intake: Intake, IV Titration 134.673 398.497 Amount Diltiazem 125 mg In 125 Sodium Chloride 0.9% 100 ml @ 5 MG/HR 5 mls/hr IV .Q24H [facility] Rx#:[id number] Heparin Sod,Pork in 0.45% 134.673 273.497 NaCl 25,000 unit In 0.45 % NaCl 1 250ml.bag @ 9.4 UNITS/KG/HR 9.964 mls/hr IV .Q24H [facility] Rx#: [id number] Output: Gastric Drainage 350 Urine 925 825 Other: Voiding Method Indwelling Catheter Indwelling Catheter - Labs CBC & Chem 7: 03/18/23 05:24 03/18/23 05:24 Labs: Abnormal Lab Results - Last 24 Hours (Table) 03/17/23 03/17/23 03/18/23 Range/Units 12:03 22:11 05:24 RBC 3.65 L (4.30-5.90) m/uL Hgb 11.2 L (13.0-17.5) gm/dL Hct 33.7 L (39.0-53.0) % Lymphocytes # 0.4 L (1.0-4.8) k/uL APTT 36.5 H 49.0 H (22.0-30.0) sec BUN (9-20) mg/dL Glucose (74-99) mg/dL Calcium (8.4-10.2) mg/dL 03/18/23 03/18/23 Range/Units 05:24 05:24 RBC (4.30-5.90) m/uL Hgb (13.0-17.5) gm/dL Hct (39.0-53.0) % Lymphocytes # (1.0-4.8) k/uL APTT 42.7 H (22.0-30.0) sec BUN 28 H (9-20) mg/dL Glucose 136 H (74-99) mg/dL Calcium 8.0 L (8.4-10.2) mg/dL Microbiology - Last 24 Hours (Table) 03/14/23 01:06 Blood Culture - Preliminary Blood
[2023-03-18] MEDS: DILTIAZEM 125 MG in SODIUM CHLORIDE 0.9% 100 ML IV SCH (11:53)
[2023-03-18] MEDS: LEVOTHYROXINE IVP 100 MCG/5 ML VIAL IV SCH (13:11)
[2023-03-18] MEDS ORDERED: VANCOMYCIN IV PER PHARMACY 1 EACH MISC MISCELLANE PRN (13:23)
--- NOTE | 2023-03-18 13:37 | P.PN ---
Subjective Progress Note Date: 03/18/23 Hospital course Patient is a 67-year-old male with a PMH of hypothyroidism, hypertension, and d egenerative disc disease with chronic lower back pain who was admitted for an elective lumbosacral fusion and decompression. The patient underwent a 2-stage procedure with anterior and posterior approaches on 03/13. After surgery patient developed ileus and A. fib with RVR and also found to have non-ST elevation [place]. Gen. surgery and cardiology are following the patient. Today patient is having high-grade fevers and is tachycardic. Subjective Patient was seen today. He was diaphoretic and was having rigors. He also has a fever of 101. Patient is denying any surgical pain. He does not want any more IV pain medications. He is requesting IV Benadryl to help him sleep. Physical exam General examination - Alert and Oriented 3 in NAD, ill-appearing Heart - + S1S2 no murmurs Lungs -diminished breath sounds bilaterally Abdomen diffuse tenderness to palpate +ve BS, + NG tube Extremities - No edema E COMMERCE MANAGER - Moving all 4 extremities spontaneously Psych - Calm and cooperative Assessment and Plan: Sepsis with unknown source Non-ST elevation [place] A. fib with RVR Ileus Hyponatremia: Resolved Vertigo: Resolved Lactic acidosis: Resolved Hyperkalemia: Resolved Based on my assessment of this patient, this patient meets a high complexity level of care Patient has an acute diagnosis of sepsis and non-ST elevation [place] that poses threat to life bodily function Regarding the sepsis will do workup for source of infection. We'll obtain a UA, chest x-ray and blood cultures and lactic acid. We'll start the patient on vancomycin and Flagyl as well. Patient is already on cefazolin. We'll consult infectious disease. Tylenol rectally when necessary for fever. Regarding the non-ST elevation TX cardiology recommends stress test once patient is medically stable. Echocardiogram shows mild LV systolic dysfunction and mild mitral regurgitation. Resume aspirin 81 mg by mouth daily as patient can tolerate oral medications Regarding the A. fib with RVR Resume Cardizem drip and heparin drip. Regarding the ileus general surgery is managing. Patient currently on NG tube. Discontinue IV Dilaudid as patient is denying any pain. Encourage ambulation. Patient started on Reglan 10 mg IV every 6 hours. Tylenol rectally when necessary for pain if needed Patient's vertical has resolved and his CT head was reviewed and was unremarkable. CODE STATUS: FULL CODE. DVT prophylaxis: Heparin drip Anticipated discharge place: Pending clinical course Anticipated discharge time: Pending clinical course I have reviewed the following publicity consultant notes: none I have reviewed the results of the following tests: None I have ordered the following tests: CBC and BMP and blood culture, UA, and CXR and lactic acid I have discussed the care of this patient with the following independent historian: None I have independently interpreted the following test below: none I have discussed the management of this patient with the following physician: None This patient has a high risk of morbidity due to the following reasons: Non-ST elevation [place] with sepsis Objective - Vital Signs Vital signs: Vital Signs Temp 100.1 F H 03/18/23 11:35 Pulse 111 H 03/18/23 11:35 Resp 18 03/18/23 11:35 BP 179/99 03/18/23 11:35 Pulse Ox 94 L 03/18/23 11:35 FiO2 Intake & Output 03/17/23 03/18/23 03/18/23 18:59 06:59 18:59 Intake Total 134.673 398.497 125 Output Total 1275 825 Balance -1140.327 -426.503 125 Weight 106 kg Intake: Intake, IV Titration 134.673 398.497 125 Amount Diltiazem 125 mg In 125 125 Sodium Chloride 0.9% 100 ml @ 5 MG/HR 5 mls/hr IV .Q24H [facility] Rx#:[id number] Heparin Sod,Pork in 0.45% 134.673 273.497 NaCl 25,000 unit In 0.45 % NaCl 1 250ml.bag @ 9.4 UNITS/KG/HR 9.964 mls/hr IV .Q24H [facility] Rx#: [id number] Output: Gastric Drainage 350 Urine 925 825 Other: Voiding Method Indwelling Catheter Indwelling Catheter Indwelling Catheter - Labs CBC & Chem 7: 03/18/23 05:24 03/18/23 05:24 Labs: Abnormal Lab Results - Last 24 Hours (Table) 03/17/23 03/18/23 03/18/23 Range/Units 22:11 05:24 05:24 RBC 3.65 L (4.30-5.90) m/uL Hgb 11.2 L (13.0-17.5) gm/dL Hct 33.7 L (39.0-53.0) % Lymphocytes # 0.4 L (1.0-4.8) k/uL APTT 49.0 H (22.0-30.0) sec BUN 28 H (9-20) mg/dL Glucose 136 H (74-99) mg/dL Calcium 8.0 L (8.4-10.2) mg/dL 03/18/23 03/18/23 Range/Units 05:24 12:14 RBC (4.30-5.90) m/uL Hgb (13.0-17.5) gm/dL Hct (39.0-53.0) % Lymphocytes # (1.0-4.8) k/uL APTT 42.7 H 68.1 H (22.0-30.0) sec BUN (9-20) mg/dL Glucose (74-99) mg/dL Calcium (8.4-10.2) mg/dL Microbiology - Last 24 Hours (Table) 03/14/23 01:06 Blood Culture - Preliminary Blood
[2023-03-18] MEDS ORDERED: VANCOMYCIN 1,750 MG in SODIUM CHLORIDE 0.9% 500 ML 500 ML IVPB ONE ×2 (14:00→18:00)
--- NOTE | 2023-03-18 14:43 | P.PN ---
Subjective Progress Note Date: 03/18/23 CHIEF COMPLAINT: Ileus HISTORY OF PRESENT ILLNESS: Patient status post lumbar spinal surgery. He has developed an ileus. Patient's abdomen remains distended. He is having flatus. No bowel movement. Patient having low-grade fevers and has been tachycardic. White count normal at 6.1 less than service has started sepsis workup. Patient remains nothing by mouth. Patient's [place] was discontinued yesterday. WBC 6.1HgB 11.2 platelets 246 sodium was 139 potassium is 3.5 creatinine 1.0 magnesium 2.2. NG tube with 350 ml output PHYSICAL EXAM: VITAL SIGNS: Reviewed GENERAL: Well-developed in no acute distress. HEENT: No sclera icterus. Extraocular movements grossly intact. Moist buccal mucosa. Head is atraumatic, normocephalic. Hears conversational speech. No nasal drainage. NECK: Supple without lymphadenopathy. CHEST: Non-labored respirations and equal bilateral excursions. CARDIOVASCULAR: Palpable 2+ radial pulses. ABDOMEN: Soft. Distended. Nontender Tympanic MUSCULOSKELETAL: No clubbing or cyanosis. NEUROLOGIC: No focal or lateralizing signs. Cranial nerves II through XII grossly intact. PSYCH: Appropriate affect. Alert and oriented to person, place and time. SKIN: Well perfused. Good skin turgor. ASSESSMENT: 1. Severe Ileus 2. Lumbar Spinal surgery 3. Atrial fibrillation 4. Non-ST elevated ID PLAN: -Continue NG tube for decompression -Keep patient nothing by mouth except ice chips -Continue Reglan -Change Mylicon chews to Mylicon gas drops scheduled -Recommend to massage the abdomen -Encouraged patient to ambulate and increase activity Physician [employer] Process Technician note has been reviewed by physician. Signing provider agrees with the documented findings, assessment, and plan of care. Objective - Vital Signs Vital signs: Vital Signs Temp 100.1 F H 03/18/23 11:35 Pulse 111 H 03/18/23 11:35 Resp 18 03/18/23 11:35 BP 179/99 03/18/23 11:35 Pulse Ox 94 L 03/18/23 11:35 FiO2 Intake & Output 03/17/23 03/18/23 03/18/23 18:59 06:59 18:59 Intake Total 134.673 398.497 125 Output Total 1275 825 Balance -1140.327 -426.503 125 Weight 106 kg Intake: Intake, IV Titration 134.673 398.497 125 Amount Diltiazem 125 mg In 125 125 Sodium Chloride 0.9% 100 ml @ 5 MG/HR 5 mls/hr IV .Q24H [facility] Rx#:[id number] Heparin Sod,Pork in 0.45% 134.673 273.497 NaCl 25,000 unit In 0.45 % NaCl 1 250ml.bag @ 9.4 UNITS/KG/HR 9.964 mls/hr IV .Q24H [facility] Rx#: [id number] Output: Gastric Drainage 350 Urine 925 825 Other: Voiding Method Indwelling Catheter Indwelling Catheter Indwelling Catheter - Labs CBC & Chem 7: 03/18/23 05:24 03/18/23 05:24 Labs: Abnormal Lab Results - Last 24 Hours (Table) 03/17/23 03/18/23 03/18/23 Range/Units 22:11 05:24 05:24 RBC 3.65 L (4.30-5.90) m/uL Hgb 11.2 L (13.0-17.5) gm/dL Hct 33.7 L (39.0-53.0) % Lymphocytes # 0.4 L (1.0-4.8) k/uL APTT 49.0 H (22.0-30.0) sec BUN 28 H (9-20) mg/dL Glucose 136 H (74-99) mg/dL Calcium 8.0 L (8.4-10.2) mg/dL 03/18/23 03/18/23 Range/Units 05:24 12:14 RBC (4.30-5.90) m/uL Hgb (13.0-17.5) gm/dL Hct (39.0-53.0) % Lymphocytes # (1.0-4.8) k/uL APTT 42.7 H 68.1 H (22.0-30.0) sec BUN (9-20) mg/dL Glucose (74-99) mg/dL Calcium (8.4-10.2) mg/dL Microbiology - Last 24 Hours (Table) 03/14/23 01:06 Blood Culture - Preliminary Blood
[2023-03-18] MEDS: metroNIDAZOLE-NS PMX 500 MG in SALINE 1 100ML.BAG IVPB SCH (16:32)
[2023-03-18 18:03] LABS: Appearance,Urine Cloudy (Clear); Bilirubin,Urine Negative (Negative); Blood,Urine Moderate (Negative); Color,Urine Yellow; Glucose,Urine (UA) Trace (Negative); Ketones,Urine 2+ (Negative); Leukocyte Esterase,Urine Small (Negative); Mucus,Urine Rare /hpf; Nitrite,Urine Negative (Negative); PH, Urine 5.5 (5.0-8.0); Protein,Urine Negative (Negative); RBC,Urine 24 /hpf (0-5); Specific Gravity,Urine 1.014 (1.001-1.035); Squamous Epithelial Cell,Urine <1 /hpf (0-4); Urobilinogen,Urine <2.0 mg/dL (<2.0); WBC,Urine 2 /hpf (0-5)
--- NOTE | 2023-03-18 19:25 | XR ---
EXAMINATION TYPE: XR chest 1V portable DATE OF EXAM: 03/18/2023 Comparison: 03/17/2023 Clinical History: 67-year-old male fever Findings: NG tube courses below the diaphragm. Right anterior chest wall injection port with subclavian access. Catheter appears to be looped probably into the lower right IJV before coursing inferiorly to the re gion of the mid to lower SVC. Heart normal size. Some stringy atelectasis in the lower lungs. Upper a nd mid lungs appear clear. No pleural effusion. Impression: Some mild strandy atelectasis in the lower lungs. Otherwise, no definite acute process. Similar loope d course of the right-sided injection port.
[2023-03-18] MEDS: SIMETHICONE 40 MG/0.6 ML DROPS 2,000 MG/30 ML BOTTLE PO SCH ×2 (19:36→21:44)
[2023-03-18] MEDS: CEFEPIME 2 GM in SODIUM CHLORIDE 0.9% 100 ML IVPB SCH (19:38)
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
[2023-03-19] MEDS: METOPROLOL TARTRATE 5 MG/5 ML VIAL IVP SCH ×4 (00:06→18:12)
[2023-03-19] MEDS: CEFEPIME 2 GM in SODIUM CHLORIDE 0.9% 100 ML IVPB SCH ×3 (00:06→17:37)
[2023-03-19] MEDS: metroNIDAZOLE-NS PMX 500 MG in SALINE 1 100ML.BAG IVPB SCH ×3 (00:06→16:24)
[2023-03-19] MEDS: METOCLOPRAMIDE 5 MG/ML 2 ML VIAL IVP SCH ×2 (02:26→09:07)
[2023-03-19] MEDS: DILTIAZEM 125 MG in SODIUM CHLORIDE 0.9% 100 ML IV SCH ×2 (02:28→15:15)
[2023-03-19] MEDS: VANCOMYCIN 1,750 MG in SODIUM CHLORIDE 0.9% 500 ML 500 ML IVPB SCH ×2 (06:15→18:14)
[2023-03-19] MEDS: HEPARIN SOD,PORK IN 0.45% NACL 25,000 UNIT in 0.45% NACL 1 250ML.BAG IV SCH ×2 (06:15→18:09)
[2023-03-19] MEDS: ASPIRIN 81 MG PO SCH (07:23)
[2023-03-19] MEDS: GABAPENTIN 300 MG CAP PO SCH ×3 (07:23→23:13)
[2023-03-19 08:35] LABS: Basophils # (A) 0.1 k/uL (0-0.2); Basophils % (A) 0 %; Eosinophils # (A) 0.1 k/uL (0-0.7); Eosinophils % (A) 1 %; HCT 35.7 % (39.0-53.0); HGB 11.9 gm/dL (13.0-17.5); Lymphocytes # (A) 0.4 k/uL (1.0-4.8); Lymphocytes % (A) 3 %; MCH 30.5 pg (25.0-35.0); MCHC 33.2 g/dL (31.0-37.0); MCV 91.9 fL (80.0-100.0); Mean Platelet Volume 7.6; Monocytes # (A) 0.7 k/uL (0-1.0); Monocytes % (A) 7 %; Neutrophils # (A) 9.7 k/uL (1.3-7.7); Neutrophils % (A) 87 %; Platelet Count 269 k/uL (150-450); RBC 3.89 m/uL (4.30-5.90); RDW 15.2 % (11.5-15.5); WBC 11.1 k/uL (3.8-10.6)
[2023-03-19 08:44] LABS: ALT 23 U/L (4-49); AST 62 U/L (17-59); African American GFR (CKD) >90 (>60 ml/min/1.73 sqM); Albumin 3.3 g/dL (3.5-5.0); Alkaline Phosphatase 85 U/L (38-126); Anion Gap 10 mmol/L; Blood Urea Nitrogen 24 mg/dL (9-20); Carbon Dioxide 26 mmol/L (22-30); Chloride 107 mmol/L (98-107); Glucose 130 mg/dL (74-99); Non-African American GFR(CKD) 80 (>60 ml/min/1.73 sqM); Potassium 3.2 mmol/L (3.5-5.1); Sodium 143 mmol/L (137-145); Total Bilirubin 1.2 mg/dL (0.2-1.3); Total Protein 5.5 g/dL (6.3-8.2)
[2023-03-19] MEDS: LEVOTHYROXINE IVP 100 MCG/5 ML VIAL IV SCH (08:50)
[2023-03-19] MEDS: PANTOPRAZOLE 40 MG/10 ML VIAL IVP SCH (08:53)
--- NOTE | 2023-03-19 08:58 | P.PN ---
Subjective Progress Note Date: 03/19/23 Principal diagnosis: L5-S1 grade 2 spondylolisthesis L4 S1 spondylosis lower extremity radiculopathy Patient seen and examined this morning. Patient resting in bed. RN reported that patient was provided benadryl last night before bed, this morning he is falling asleep mid conversation. Patient states he is dreaming "outloud" and this is me ssing up his reality. NG remains patent, patient is tolerating ice chips. He states that he has been passing gas, no BM. Abdomen continues to be less firm, less distended today. Anterior surgical dressing and Posterior paralumbar surgical dressing are CDI. Patient is having generalized weakness and seems to be more shaky today in his movements. Encouraged patient to continue to work with physical therapy and to ambulate as tolerated. Otherwise patient is doing well from Orthopedic standpoint. Objective - Vital Signs Vital signs: Vital Signs Temp 99.1 F 03/19/23 04:00 Pulse 108 H 03/19/23 04:00 Resp 16 03/19/23 04:00 BP 160/81 03/19/23 04:00 Pulse Ox 96 03/19/23 04:00 FiO2 Intake & Output 03/18/23 03/19/23 03/19/23 18:59 06:59 18:59 Intake Total 288.928 375 Output Total 925 1550 Balance -636.072 -1175 Intake: Intake, IV Titration 288.928 375 Amount Diltiazem 125 mg In 125 125 Sodium Chloride 0.9% 100 ml @ 5 MG/HR 5 mls/hr IV .Q24H [facility] Rx#:[id number] Heparin Sod,Pork in 0.45% 163.928 250 NaCl 25,000 unit In 0.45 % NaCl 1 250ml.bag @ 9.4 UNITS/KG/HR 9.964 mls/hr IV .Q24H [facility] Rx#: [id number] Output: Gastric Drainage 250 Urine 675 1550 Other: Voiding Method Indwelling Catheter Indwelling Catheter - Exam Physical Examination General: The patient is awake and alert, in no acute distress Skin: Skin is warm and dry with no obvious rashes or lesions. Anterior surgical incision midline lower abdomen, dressing is clean dry and intact. Posterior paralumbar incisions, dressings CDI. Eye: Pupils are to the lower equal, round and reactive to light, extra-ocular movements are intact; there is normal conjunctiva bilaterally. Neck: The neck is supple, there is no tenderness and ROM intact. Cardiovascular: There is a regular rate and rhythm. No murmur, rub or gallop is appreciated. Respiratory: Lungs are clear to auscultation, respirations are non-labored, breath sounds are equal. Gastrointestinal: Firm, distended, tender abdomen. Back: There is no tenderness to palpation in the midline, paralumbar, parathoracic or buttocks region. There is no obvious deformity . Musculoskeletal: ROM limited secondary to pain and stiffness from surgical procedure. Muscle strength in all major muscle groups of bilateral upper extremities 4/5, bilateral lower extremities 4/5. Neurological: CN 2-12 intact. There are no obvious motor or sensory deficits. Movement and coordination equal and intact. Sensory exam to light touch intact C5-T1 and intact from L2-S1. Reflexes 2/4 in bilateral upper and lower extremities. Negative Hoffmans, babinski, and clonus signs. Psychiatric: Cooperative, appropriate mood & affect, normal judgment. - Labs CBC & Chem 7: 03/18/23 05:24 03/18/23 05:24 Labs: Abnormal Lab Results - Last 24 Hours (Table) 03/18/23 03/18/23 Range/Units 12:14 16:40 APTT 68.1 H (22.0-30.0) sec Urine Glucose (UA) Trace H (Negative) Urine Ketones 2+ H (Negative) Urine Blood Moderate H (Negative) Ur Leukocyte Esterase Small H (Negative) Urine RBC 24 H (0-5) /hpf Urine Mucus Rare H (None) /hpf Assessment and Plan Assessment: Postop day 6: Part I: L5-S1 ALIF with Part II: L4-S1 posteriolateral and interbody fusion. Post-Op Illeus Possible cardiac stress from surgery and pain Plan: -Appreciate economics consultant and team management. -Activity: Ambulate QID, OOB all meals, up and about, limit lifting bending twis ting to less than 5 lbs. Use walker or cane if needed for stability. -Daily PT/OT, increase ambulation strength and balance. -Brace when up and about, not needed in bed or chair -Pain control: Adequate at this time -Meds: reviewed -GI ppx: senna, reglan, mag citrate -DC dennis when up and about, bedside commode if needed -DVT PPX: Heparin -Hygiene: Shower today. Maintain dressing clean and dry. Meticulous cleaning after BMs away from the incision site -Encourage IS 10x/hr -Dispo: Clinically pending *I reviewed and discussed this case with my attending Dr. Villa, whom has reviewed this chart and films and is in agreement with assessment and plan of care as outlined above. I have personally seen and examined the patient, performed the documentation and the assessment and plan as written. Number of minutes spent on the visit: 20m.
[2023-03-19] MEDS: SIMETHICONE 40 MG/0.6 ML DROPS 2,000 MG/30 ML BOTTLE PO SCH ×5 (09:03→23:13)
[2023-03-19] MEDS: ACETAMINOPHEN SUPPOSITORY 650 MG SUPP RECTAL PRN ×2 (09:22→17:22)
[2023-03-19] MEDS: cloNIDine 0.3 MG/24HR PATCH TRANSDERM SCH (09:27)
[2023-03-19] MEDS: IOPAMIDOL CONTRAST (ORAL USE) VIAL PO PRN ×2 (10:09→11:23)
[2023-03-19 10:35] LABS: C Reactive Protein 12.7 mg/dL (<1.0)
--- NOTE | 2023-03-19 10:42 | P.PN ---
Subjective Progress Note Date: 03/19/23 Notified by cardiology and case discussed with them the patient was more lethargic, appeared clinically worse than yesterday. I saw the patient bedside, he looks diaphoretic, altered. Case discussed with surgery, considerations include serotonin syndrome, severe sepsis with abdominal source. Gen: awake, alert, not oriented HEENT: normocephalic, atraumatic, good hearing acuity, moist mucous membranes, diaphoretic Resp: good air exchange, breathing comfortably with no accessory muscle use CVS: good distal perfusion x 4, GI: soft, mildly distended, tenderness to palpation the left lower quadrant : no SPT, no CVAT, dennis catheter is present MSK: no pitting edema, no clubbing Neuro: non-focal, moving all extremities Psych: cooperative, euthymic mood Hospital course: Patient is a 67-year-old male with a PMH of hypothyroidism, hypertension, and degenerative disc disease with chronic lower back pain who was admitted for an elective lumbosacral fusion and decompression. The patient underwent a 2-stage procedure with anterior and posterior approaches on 03/13. After surgery patient developed ileus and A. fib with RVR and also found to have non-ST elevation SC. Gen. surgery and cardiology were consulted on the patient. The patient had NG tube placed for ileus and was started on Reglan 10 mg every 6 hours. Patient was having high-grade fevers and tachycardia on 03/18 was started on vancomycin, cefepime, Flagyl. Assessment: Severe sepsis with unknown source Non-ST elevation SC, type II Paroxysmal atrial fibrillation with RVR Postoperative ileus Status post lumbosacral decompression and fusion surgery Plan: Today, patient's febrile to 102.1, 168/87, heart rate 112, 95% on 2 L nasal cannula CBC demonstrates leukocytosis to 11.1, hemoglobin of 11.9 Basic metabolic panel shows potassium of 3.2, BMI 24 Liver function tests show elevation of AST is 62, ALT is 23, total protein 5.5, albumin of 3.3 UA shows trace glucose, 2+ ketones, moderate blood, 24 red blood cells, small leukocyte esterase Chest x-ray from 03/18 is personally interpreted, shows increased pulmonary vascularity without any overt signs of heart failure, no opacities to suggest pneumonia, normal-sized heart, NG tube in appropriate positioning, MediPort in place Discussed the case with surgery today, we will obtain a CT abdomen/pelvis to rule out an abdominal source of infection Continue vancomycin cefepime, Flagyl; appreciate ID recommendations Consideration of serotonin syndrome vs neuroleptic malignant syndrome; discontinue Reglan 10 mg IV every 6 hours, discontinue benadryl Obtain CK level, Lactic acid, LDH, CMP. Patient has been on IV levothyroxine, will obtain FT4 and FT3 levels, discontinue levothyroxine for now Pt is full code Objective - Vital Signs Vital signs: Vital Signs Temp 102.1 F H 03/19/23 08:33 Pulse 112 H 03/19/23 08:33 Resp 18 03/19/23 08:33 BP 168/87 03/19/23 08:33 Pulse Ox 95 03/19/23 08:33 FiO2 Intake & Output 03/18/23 03/19/23 03/19/23 18:59 06:59 18:59 Intake Total 288.928 375 Output Total 925 1550 Balance -636.072 -1175 Intake: Intake, IV Titration 288.928 375 Amount Diltiazem 125 mg In 125 125 Sodium Chloride 0.9% 100 ml @ 5 MG/HR 5 mls/hr IV .Q24H [facility] Rx#:[id number] Heparin Sod,Pork in 0.45% 163.928 250 NaCl 25,000 unit In 0.45 % NaCl 1 250ml.bag @ 9.4 UNITS/KG/HR 9.964 mls/hr IV .Q24H [facility] Rx#: [id number] Output: Gastric Drainage 250 Urine 675 1550 Other: Voiding Method Indwelling Catheter Indwelling Catheter - Labs CBC & Chem 7: 03/19/23 07:43 03/19/23 07:43 Labs: Abnormal Lab Results - Last 24 Hours (Table) 03/18/23 03/18/23 03/19/23 Range/Units 12:14 16:40 07:43 WBC 11.1 H (3.8-10.6) k/uL RBC 3.89 L (4.30-5.90) m/uL Hgb 11.9 L (13.0-17.5) gm/dL Hct 35.7 L (39.0-53.0) % Neutrophils # 9.7 H (1.3-7.7) k/uL Lymphocytes # 0.4 L (1.0-4.8) k/uL APTT 68.1 H (22.0-30.0) sec Potassium (3.5-5.1) mmol/L BUN (9-20) mg/dL Glucose (74-99) mg/dL Calcium (8.4-10.2) mg/dL AST (17-59) U/L Total Protein (6.3-8.2) g/dL Albumin (3.5-5.0) g/dL Urine Glucose (UA) Trace H (Negative) Urine Ketones 2+ H (Negative) Urine Blood Moderate H (Negative) Ur Leukocyte Esterase Small H (Negative) Urine RBC 24 H (0-5) /hpf Urine Mucus Rare H (None) /hpf 03/19/23 03/19/23 Range/Units 07:43 07:43 WBC (3.8-10.6) k/uL RBC (4.30-5.90) m/uL Hgb (13.0-17.5) gm/dL Hct (39.0-53.0) % Neutrophils # (1.3-7.7) k/uL Lymphocytes # (1.0-4.8) k/uL APTT 67.3 H (22.0-30.0) sec Potassium 3.2 L (3.5-5.1) mmol/L BUN 24 H (9-20) mg/dL Glucose 130 H (74-99) mg/dL Calcium 8.0 L (8.4-10.2) mg/dL AST 62 H (17-59) U/L Total Protein 5.5 L (6.3-8.2) g/dL Albumin 3.3 L (3.5-5.0) g/dL Urine Glucose (UA) (Negative) Urine Ketones (Negative) Urine Blood (Negative) Ur Leukocyte Esterase (Negative) Urine RBC (0-5) /hpf Urine Mucus (None) /hpf
[2023-03-19] MEDS ORDERED: POTASSIUM CHLORIDE ER 20 MEQ TAB.ER PO STA (11:25)
--- NOTE | 2023-03-19 11:26 | P.PN ---
Subjective Progress Note Date: 03/19/23 CHIEF COMPLAINT: Ileus HISTORY OF PRESENT ILLNESS: Patient status post lumbar spinal surgery. He has developed an ileus. Patient looks more L this morning. He has been febrile with a temp of 102 white count is up 11 he's been tachycardic heart rate 108. She is more lethargic and confused. He denies abdominal pain. NG tube only reported as turning 50 mL all yesterday. He is having flatus. No bowel movement. Medicine service is discontinuing the Reglan due to concerns of possible serotonin syndrome. Case has been discussed with medicine service. They are ordering computed tomography scan abdomen and pelvis due to concerns of sepsis PHYSICAL EXAM: VITAL SIGNS: Reviewed GENERAL: Well-developed in no acute distress. HEENT: No sclera icterus. Extraocular movements grossly intact. Moist buccal mucosa. Head is atraumatic, normocephalic. Hears conversational speech. No nasal drainag e. NECK: Supple without lymphadenopathy. CHEST: Non-labored respirations and equal bilateral excursions. CARDIOVASCULAR: Palpable 2+ radial pulses. ABDOMEN: Soft. Distended. Nontender Tympanic MUSCULOSKELETAL: No clubbing or cyanosis. NEUROLOGIC: No focal or lateralizing signs. Cranial nerves II through XII grossly intact. PSYCH: Lethargic SKIN: Well perfused. Good skin turgor. ASSESSMENT: 1. Severe Ileus 2. Lumbar Spinal surgery 3. Atrial fibrillation 4. Non-ST elevated MO 5. Hypokalemia, potassium 3.2. Replacement ordered. PLAN: -Agree with ordering computed tomography scan of abdomen and pelvis. Will follow-up on results. -Continue NG tube for decompression -Keep patient nothing by mouth except ice chips -Continue Mylicon gas drops -Encouraged patient to ambulate and increase activity Physician [employer] Operator note has been reviewed by physician. Signing provider agrees with the documented findings, assessment, and plan of care. Objective - Vital Signs Vital signs: Vital Signs Temp 102.0 F H 03/19/23 10:21 Pulse 112 H 03/19/23 08:33 Resp 18 03/19/23 08:33 BP 168/87 03/19/23 08:33 Pulse Ox 95 03/19/23 08:33 FiO2 Intake & Output 03/18/23 03/19/23 03/19/23 18:59 06:59 18:59 Intake Total 288.928 375 Output Total 925 1550 Balance -636.532 -7652 Intake: Intake, IV Titration 288.928 375 Amount Diltiazem 125 mg In 125 125 Sodium Chloride 0.9% 100 ml @ 5 MG/HR 5 mls/hr IV .Q24H [facility] Rx#:[id number] Heparin Sod,Pork in 0.45% 163.928 250 NaCl 25,000 unit In 0.45 % NaCl 1 250ml.bag @ 9.4 UNITS/KG/HR 9.964 mls/hr IV .Q24H [facility] Rx#: [id number] Output: Gastric Drainage 250 Urine 675 1550 Other: Voiding Method Indwelling Catheter Indwelling Catheter - Labs CBC & Chem 7: 03/19/23 07:43 03/19/23 07:43 Labs: Abnormal Lab Results - Last 24 Hours (Table) 03/18/23 03/18/23 03/19/23 Range/Units 12:14 16:40 07:43 WBC 11.1 H (3.8-10.6) k/uL RBC 3.89 L (4.30-5.90) m/uL Hgb 11.9 L (13.0-17.5) gm/dL Hct 35.7 L (39.0-53.0) % Neutrophils # 9.7 H (1.3-7.7) k/uL Lymphocytes # 0.4 L (1.0-4.8) k/uL APTT 68.1 H (22.0-30.0) sec Potassium (3.5-5.1) mmol/L BUN (9-20) mg/dL Glucose (74-99) mg/dL Calcium (8.4-10.2) mg/dL AST (17-59) U/L Total Protein (6.3-8.2) g/dL Albumin (3.5-5.0) g/dL Urine Glucose (UA) Trace H (Negative) Urine Ketones 2+ H (Negative) Urine Blood Moderate H (Negative) Ur Leukocyte Esterase Small H (Negative) Urine RBC 24 H (0-5) /hpf Urine Mucus Rare H (None) /hpf 03/19/23 03/19/23 Range/Units 07:43 07:43 WBC (3.8-10.6) k/uL RBC (4.30-5.90) m/uL Hgb (13.0-17.5) gm/dL Hct (39.0-53.0) % Neutrophils # (1.3-7.7) k/uL Lymphocytes # (1.0-4.8) k/uL APTT 67.3 H (22.0-30.0) sec Potassium 3.2 L (3.5-5.1) mmol/L BUN 24 H (9-20) mg/dL Glucose 130 H (74-99) mg/dL Calcium 8.0 L (8.4-10.2) mg/dL AST 62 H (17-59) U/L Total Protein 5.5 L (6.3-8.2) g/dL Albumin 3.3 L (3.5-5.0) g/dL Urine Glucose (UA) (Negative) Urine Ketones (Negative) Urine Blood (Negative) Ur Leukocyte Esterase (Negative) Urine RBC (0-5) /hpf Urine Mucus (None) /hpf
[2023-03-19 11:32] LABS: LDH 315 U/L (120-246)
[2023-03-19 11:34] LABS: ALT 25 U/L (4-49); AST 73 U/L (17-59); African American GFR (CKD) 80 (>60 ml/min/1.73 sqM); Albumin 3.2 g/dL (3.5-5.0); Alkaline Phosphatase 69 U/L (38-126); Anion Gap 10 mmol/L; Bilirubin, Delta 0.8 mg/dL (0.0-0.2); Bilirubin,Unconjugated 0.5 mg/dL (0.0-1.1); Blood Urea Nitrogen 23 mg/dL (9-20); Calcium 8.2 mg/dL (8.4-10.2); Carbon Dioxide 27 mmol/L (22-30); Chloride 106 mmol/L (98-107); Creatine Kinase 419 U/L (55-170); Glucose 132 mg/dL (74-99); Magnesium 2.2 mg/dL (1.6-2.3); Non-African American GFR(CKD) 69 (>60 ml/min/1.73 sqM); Potassium 2.8 mmol/L (3.5-5.1); Sodium 143 mmol/L (137-145); Total Bilirubin 1.3 mg/dL (0.2-1.3)
[2023-03-19 11:46] LABS: T4, Free (Free Thyroxine) 2.07 ng/dL (0.78-2.19)
--- NOTE | 2023-03-19 12:53 | CT ---
EXAMINATION TYPE: CT abdomen pelvis w con DATE OF EXAM: 03/19/2023 COMPARISON: INDICATION: r/o abscesses DLP: 2122.9 mGycm, Automated exposure control for dose reduction was used. CONTRAST: 100 mL of Isovue 300. Study performed with Oral Contrast TECHNIQUE: Axial images were obtained from above the diaphragm to the pubic rami in the axial plane a t 5 mm thick sections. Reconstructed images are reviewed on the computer in the coronal plane. FINDINGS: Limited CT sections are obtained the lung bases. There is some mild infiltrate within the lung bases which is nonspecific correlate for subsegmental atelectasis.. CT ABDOMEN: Nasogastric tube has its tip within the stomach. Liver: Normal Spleen: Normal Pancreas: Normal Adrenal glands: The adrenal glands are normal. Gallbladder: Normal Kidneys: No masses are evident. No hydronephrosis is present. No cysts are present. Delayed images were obtained through the kidneys, which remain unremarkable. Aorta: Vascular calcification is within the aorta. Inferior vena cava: Normal. CT PELVIS: Inflammatory changes are in the left lower quadrant. No discrete abscess is identified. Sm all amount of free air may be present adjacent to the peritoneal wall. There are some prominent small bowel loops with oral contrast. No zone of transition is evident. [place] n appears unremarkable with fecal debris and air. There are loops of bowel which are incompletely dis tended or lack oral contrast limiting their evaluation. Appendix: Not identified. No suspicious inflammatory changes or dilated tubular structures or evidenc e Urinary bladder: Decompressed with Freeman catheter. Some air is present within the urinary bladder. Genitourinary structures: Prostate appears somewhat prominent Osseous structures: No suspicious lytic or sclerotic lesions. IMPRESSIONS: 1. Inflammatory changes in left lower quadrant extending towards inguinal region. Tiny amount of loepz e air appears to be present through this area. No underlying abscess formation is identified. Report was called to the patient's nurse by Dr. Stone by telephone at the time of interpretation.
[2023-03-19 13:16] LABS: C Reactive Protein 15.8 mg/dL (<1.0)
--- NOTE | 2023-03-19 13:30 | P.PN ---
Subjective HISTORY OF PRESENT ILLNESS: This is a 67-year-old male with no previous cardiac history, does not follow with a contact lens edge buffer. He does have a past medical history of lymphoma with stem cell transplant at this [facility]. Patient states he had a cardiac catheterization done many years ago and has subsequently had a stress test done prior to his stem cell transplant which was normal. Patient came into the hospital for elective back surgery performed on 03/13. Yesterday apparently he became diaphoretic and dizzy pain was 7/10. Troponins were ordered which came back elevated. Patient was transferred to the cardiac stepdown unit. Patient is complaining of severe pain in his abdomen, abdominal bloating. He states he has not had a bowel movement and not passing gas. We have been asked to evaluate patient for elevated troponins. EKG sinus rhythm with no acute ST changes, first-degree block 93 bpm Troponin 0.146, 0.74, 1.1. Sodium 129, potassium 4.3, BUN 21 creatinine 1.09. Lactic acid 3.1 with repeat 1.6. Leukocytosis 17 down to 13.5, hemoglobin 13.9, platelet count 188. Home cardiac medications: Magnesium 250 mg daily, Lopressor 50 mg twice daily, levothyroxine 250 g daily 03/16/2023 Patient examined this morning at the bedside. Patient denies chest pain or pressure. He denies shortness of breath. He continues to remain nothing by mouth. He is receiving IV push Lopressor every 8 hours. Echocardiogram completed revealing ejection fraction 45-50%, mild mitral regurgitation, and aortic sclerosis without significant stenosis. Telemetry reveals sinus tachycardia with a heart rate around 120. Addendum entered and electronically signed by Christina Laureano NP-C 03/16/23 12:11: Patients tachycardia worsening this afternoon with heart rates into the 160s EKG completed revealing atrial fibrillation Patient remains NPO. He is receiving IV metoprolol Per orthopedics dictation, patient is cleared to begin anticoagulation from t heir standpoint Will begin IV heparin and IV cardizem drip Will transition to oral dosing when patient able to tolerate PO medications 03/17/2023 Patient examined this morning. Patient is sitting up in the chair. He remains nothing by mouth. Patient has an NG tube noted. He denies chest pain or p ressure. Denies shortness of breath. Telemetry reveals sinus tachycardia with a heart rate around 115. He remains on IV heparin. He also remains on a Cardizem drip at 10 mg an hour. He is receiving IV push metoprolol every 6 hours 03/18/2023 Patient examined this morning. He is laying in bed comfortable he. He continues to have NG tube and is nothing by mouth. He states he is passing gas and requesting to have his diet advanced. Telemetry reveals sinus tachycardia with heart rate around 115. He remains on IV heparin and IV Cardizem. Systolic blood pressure in the 160s. Clonidine patch was added yesterday. 03/19/2023 Patient examined this morning. Patient appears much more lethargic today compared to yesterday. He is febrile this morning. Patient's blood pressure remains elevated with a systolic in the [id number]. Heart rate is in the low 100s. He is scheduled for computed tomography scan today. PHYSICAL EXAM: VITAL SIGNS: Reviewed. GENERAL: Well-developed in no acute distress. NECK: Supple. No JVD or thyromegaly LUNGS: Respirations even and unlabored. Lungs essentially clear to auscultation bilaterally. HEART: Tachycardic. Regular rate and rhythm. S1 and S2 heard. EXTREMITIES: Normal range of motion. No clubbing or cyanosis. Peripheral p ulses intact. No lower extremity edema ASSESSMENT: S/P Part I: L5-S1 ALIF with Part II: L4-S1 posteriolateral and interbody fusion Postoperative ileus New-onset paroxysmal atrial fibrillation/typical atrial flutter Non-STEMI History of lymphoma Hypertension PLAN: Continue current cardiac medications Continue IV push Lopressor secondary to nothing by mouth status. Continue IV heparin Continue IV Cardizem Increase clonidine patch to 0.3 mg. Continue to monitor blood pressure. Continue telemetry monitoring Patient will require stress testing when he is medically stable Further recommendations pending patient's course Patient to follow-up post discharge with Dr. Schwartz Nurse practitioner note has been reviewed by physician. Signing provider agrees with the documented findings, assessment, and plan of care. Objective - Vital Signs Vital signs: Vital Signs Temp 101.2 F H 03/19/23 12:29 Pulse 109 H 03/19/23 12:29 Resp 18 03/19/23 12:29 BP 172/92 03/19/23 12:29 Pulse Ox 93 L 03/19/23 12:29 FiO2 Intake & Output 03/18/23 03/19/23 03/19/23 18:59 06:59 18:59 Intake Total 288.928 375 Output Total 925 1550 Balance -636.072 -1175 Intake: Intake, IV Titration 288.928 375 Amount Diltiazem 125 mg In 125 125 Sodium Chloride 0.9% 100 ml @ 5 MG/HR 5 mls/hr IV .Q24H [facility] Rx#:[id number] Heparin Sod,Pork in 0.45% 163.928 250 NaCl 25,000 unit In 0.45 % NaCl 1 250ml.bag @ 9.4 UNITS/KG/HR 9.964 mls/hr IV .Q24H [facility] Rx#: [id number] Output: Gastric Drainage 250 Urine 675 1550 Other: Voiding Method Indwelling Catheter Indwelling Catheter Indwelling Catheter - Labs CBC & Chem 7: 03/19/23 07:43 03/19/23 10:50 Labs: Abnormal Lab Results - Last 24 Hours (Table) 03/18/23 03/19/23 03/19/23 Range/Units 16:40 07:43 07:43 WBC 11.1 H (3.8-10.6) k/uL RBC 3.89 L (4.30-5.90) m/uL Hgb 11.9 L (13.0-17.5) gm/dL Hct 35.7 L (39.0-53.0) % Neutrophils # 9.7 H (1.3-7.7) k/uL Lymphocytes # 0.4 L (1.0-4.8) k/uL APTT (22.0-30.0) sec Potassium 3.2 L (3.5-5.1) mmol/L BUN 24 H (9-20) mg/dL Glucose 130 H (74-99) mg/dL Calcium 8.0 L (8.4-10.2) mg/dL Delta Bilirubin (0.0-0.2) mg/dL AST 62 H (17-59) U/L Lactate Dehydrogenase (120-246) U/L Creatine Kinase (55-170) U/L C-Reactive Protein 12.7 H (<1.0) mg/dL Total Protein 5.5 L (6.3-8.2) g/dL Albumin 3.3 L (3.5-5.0) g/dL Free T3 pg/mL (2.8-5.3) pg/ml Urine Glucose (UA) Trace H (Negative) Urine Ketones 2+ H (Negative) Urine Blood Moderate H (Negative) Ur Leukocyte Esterase Small H (Negative) Urine RBC 24 H (0-5) /hpf Urine Mucus Rare H (None) /hpf 03/19/23 03/19/23 Range/Units 07:43 10:50 WBC (3.8-10.6) k/uL RBC (4.30-5.90) m/uL Hgb (13.0-17.5) gm/dL Hct (39.0-53.0) % Neutrophils # (1.3-7.7) k/uL Lymphocytes # (1.0-4.8) k/uL APTT 67.3 H (22.0-30.0) sec Potassium 2.8 L (3.5-5.1) mmol/L BUN 23 H (9-20) mg/dL Glucose 132 H (74-99) mg/dL Calcium 8.2 L (8.4-10.2) mg/dL Delta Bilirubin 0.8 H (0.0-0.2) mg/dL AST 73 H (17-59) U/L Lactate Dehydrogenase 315 H (120-246) U/L Creatine Kinase 419 H (55-170) U/L C-Reactive Protein 15.8 H (<1.0) mg/dL Total Protein 6.0 L (6.3-8.2) g/dL Albumin 3.2 L (3.5-5.0) g/dL Free T3 pg/mL 2.1 L (2.8-5.3) pg/ml Urine Glucose (UA) (Negative) Urine Ketones (Negative) Urine Blood (Negative) Ur Leukocyte Esterase (Negative) Urine RBC (0-5) /hpf Urine Mucus (None) /hpf Microbiology - Last 24 Hours (Table) 03/14/23 01:06 Blood Culture - Final Blood
[2023-03-19] MEDS: POTASSIUM CHLORIDE 10 MEQ in WATER FOR INJECTION 1 100ML.BAG IVPB SCH ×5 (14:24→22:40)
--- NOTE | 2023-03-19 14:53 | P.PN ---
Subjective Progress Note Date: 03/19/23 Principal diagnosis: Postop fever Patient is a 67-year-old male electively admitted to the hospital 03/13/2023 in this patient who is s/p anterior lumbar interbody fusion L5-S1 insertion of interbody device with anterior approach patient did develop postop ileus and did have a new fever from previous infection disease consultation. on today's evaluation that is 03/19/2023, patient did spike a fever of 102F this morning, patient is currently lethargic and I would history and continued to have NG on 2 L nasal cannula oxygen no vomiting diarrhea or any other changes reported by the at the bedside Patient did have a hemoglobin of 11.9 white count is 11.1, creatinine is 0.97 CRP is 12.7, CT abdominal pelvis completed this morning report pending Objective - Vital Signs Vital signs: Vital Signs Temp 102.0 F H 03/19/23 10:21 Pulse 112 H 03/19/23 10:41 Resp 18 03/19/23 10:41 BP 168/87 03/19/23 08:33 Pulse Ox 95 03/19/23 08:33 FiO2 Intake & Output 03/18/23 03/19/23 03/19/23 18:59 06:59 18:59 Intake Total 288.928 375 Output Total 925 1550 Balance -636.072 -1175 Intake: Intake, IV Titration 288.928 375 Amount Diltiazem 125 mg In 125 125 Sodium Chloride 0.9% 100 ml @ 5 MG/HR 5 mls/hr IV .Q24H [facility] Rx#:[id number] Heparin Sod,Pork in 0.45% 163.928 250 NaCl 25,000 unit In 0.45 % NaCl 1 250ml.bag @ 9.4 UNITS/KG/HR 9.964 mls/hr IV .Q24H [facility] Rx#: [id number] Output: Gastric Drainage 250 Urine 675 1550 Other: Voiding Method Indwelling Catheter Indwelling Catheter Indwelling Catheter - Exam GENERAL DESCRIPTION: An elderly male lying in bed in no distress RESPIRATORY SYSTEM: Unlabored breathing , decreased breath sounds at bases HEART: S1 S2 regular rate and rhythm , ABDOMEN: Soft , mild distention and tenderness EXTREMITIES: No edema feet - Labs CBC & Chem 7: 03/19/23 07:43 08/10/23 10:50 Labs: Abnormal Lab Results - Last 24 Hours (Table) 03/18/23 03/18/23 03/19/23 Range/Units 12:14 16:40 07:43 WBC 11.1 H (3.8-10.6) k/uL RBC 3.89 L (4.30-5.90) m/uL Hgb 11.9 L (13.0-17.5) gm/dL Hct 35.7 L (39.0-53.0) % Neutrophils # 9.7 H (1.3-7.7) k/uL Lymphocytes # 0.4 L (1.0-4.8) k/uL APTT 68.1 H (22.0-30.0) sec Potassium (3.5-5.1) mmol/L BUN (9-20) mg/dL Glucose (74-99) mg/dL Calcium (8.4-10.2) mg/dL AST (17-59) U/L C-Reactive Protein (<1.0) mg/dL Total Protein (6.3-8.2) g/dL Albumin (3.5-5.0) g/dL Urine Glucose (UA) Trace H (Negative) Urine Ketones 2+ H (Negative) Urine Blood Moderate H (Negative) Ur Leukocyte Esterase Small H (Negative) Urine RBC 24 H (0-5) /hpf Urine Mucus Rare H (None) /hpf 03/19/23 03/19/23 Range/Units 07:43 07:43 WBC (3.8-10.6) k/uL RBC (4.30-5.90) m/uL Hgb (13.0-17.5) gm/dL Hct (39.0-53.0) % Neutrophils # (1.3-7.7) k/uL Lymphocytes # (1.0-4.8) k/uL APTT 67.3 H (22.0-30.0) sec Potassium 3.2 L (3.5-5.1) mmol/L BUN 24 H (9-20) mg/dL Glucose 130 H (74-99) mg/dL Calcium 8.0 L (8.4-10.2) mg/dL AST 62 H (17-59) U/L C-Reactive Protein 12.7 H (<1.0) mg/dL Total Protein 5.5 L (6.3-8.2) g/dL Albumin 3.3 L (3.5-5.0) g/dL Urine Glucose (UA) (Negative) Urine Ketones (Negative) Urine Blood (Negative) Ur Leukocyte Esterase (Negative) Urine RBC (0-5) /hpf Urine Mucus (None) /hpf Assessment and Plan (1) Sepsis Current Visit: Yes Status: Acute Code(s): A41.9 - SEPSIS, UNSPECIFIED ORGANISM SNOMED Code(s): 24705509 Plan: 1patient with a postop fever in this patient with extensive surgery requiring anterior lumbar interbody fusion L5-S1 and insertion of interbody device developing a postop ileus now low-grade fever and tachycardia possible abdominal source however no significant tenderness was noticed on abdominal Examination,, patient did have a negative UA chest x-ray did shows mild strandy atelectasis lower lungs patient did have a CT abdominal pelvis this morning which is currently pending 2-blood culture currently pending CRP is elevated and procalcitonin is normal at 0.09 3-patient fever is likely intra-abdominal. Waiting for the CT abdominal pelvis report, the patient is broadly covered with cefepime and Flagyl to continue and monitor clinical course closely at the bedside questions were answered Dictation was produced using [employer] dictation software. please excuse any grammatical, word or spelling errors. Time with Patient: Less than 30
--- NOTE | 2023-03-19 15:53 | XR ---
EXAMINATION TYPE: XR chest 1V portable DATE OF EXAM: 03/19/2023 3:47 PM COMPARISON: Chest radiographs from 03/18/2023 TECHNIQUE: XR chest 1V portable Portable AP radiograph of the chest. CLINICAL INDICATION:Male, 67 years old with history of hypoxia; FINDINGS: Lungs/Pleura: Bibasilar patchy airspace opacities. Elevation of the right hemidiaphragm. No pneumotho rax. No pleural effusions. Pulmonary vascularity: Unremarkable. Heart/mediastinum: Cardiomediastinal silhouette is unremarkable. Musculoskeletal: No acute osseous pathology. Other findings: None Lines/Tubes: Stable position of right subclavian approach Mediport catheter with similar loop in the midportion. T he tip is demonstrated within the mid SVC. Nasogastric tube with its distal tip and side-port projecting under the diaphragm and projecting over the gastric lumen. IMPRESSION: 1. Development of bibasilar patchy airspace opacities concerning for pneumonia. 2. Stable support lines and tubes.
[2023-03-19] MEDS: IPRATROPIUM-ALBUTEROL 3 ML NEB INHALATION PRN (18:53)
[2023-03-19 20:07] LABS: Glucose,Whole Blood 101 mg/dL (70-110)
[2023-03-19] MEDS: HYDROmorphone 0.5 MG/0.5 ML SYRINGE IVP PRN (20:29)
[2023-03-19] MEDS: ACETAMINOPHEN IV (For NPO) 1,000 MG in EMPTY BAG 1 BAG IVPB PRN (20:32)
[2023-03-19 20:49] LABS: Basophils # (A) 0.1 k/uL (0-0.2); Basophils % (A) 0 %; Eosinophils # (A) 0.2 k/uL (0-0.7); Eosinophils % (A) 1 %; HCT 38.3 % (39.0-53.0); HGB 12.4 gm/dL (13.0-17.5); Lymphocytes # (A) 0.5 k/uL (1.0-4.8); Lymphocytes % (A) 4 %; MCHC 32.5 g/dL (31.0-37.0); MCV 92.4 fL (80.0-100.0); Mean Platelet Volume 7.6; Monocytes # (A) 0.7 k/uL (0-1.0); Monocytes % (A) 5 %; Neutrophils # (A) 12.3 k/uL (1.3-7.7); Neutrophils % (A) 88 %; Platelet Count 261 k/uL (150-450); RBC 4.15 m/uL (4.30-5.90); RDW 15.2 % (11.5-15.5)
[2023-03-19 21:01] LABS: Glucose,Whole Blood 131 mg/dL (70-110)
[2023-03-19 21:12] LABS: ABG Base Excess 1.4 mmol/L; ABG HCO3 25 mmol/L (21-25); ABG Oxygen Saturation 93.7 % (94-97); ABG PCO2 32 mmHg (35-45); ABG PO2 67 mmHg (83-108); ABG TCO2 26 mmol/L (19-24); Allen Test Performed? Yes
[2023-03-19 21:20] LABS: ALT 25 U/L (4-49); AST 55 U/L (17-59); African American GFR (CKD) 85 (>60 ml/min/1.73 sqM); Albumin 3.3 g/dL (3.5-5.0); Alkaline Phosphatase 85 U/L (38-126); Anion Gap 12 mmol/L; Blood Urea Nitrogen 22 mg/dL (9-20); Calcium 7.8 mg/dL (8.4-10.2); Carbon Dioxide 22 mmol/L (22-30); Chloride 108 mmol/L (98-107); Glucose 115 mg/dL (74-99); Non-African American GFR(CKD) 73 (>60 ml/min/1.73 sqM); Potassium 3.1 mmol/L (3.5-5.1); Sodium 142 mmol/L (137-145); Total Bilirubin 1.4 mg/dL (0.2-1.3); Total Protein 5.8 g/dL (6.3-8.2)
--- NOTE | 2023-03-19 21:25 | XR ---
EXAMINATION TYPE: XR abdomen acute w cxr - 5V DATE OF EXAM: 03/19/2023 COMPARISON: CT abdomen 03/19/2023 1:57 AM HISTORY: Increasing abdominal pain TECHNIQUE: 3 upright and 2 supine radiographs were obtained portably. FINDINGS: Upright views: There is no evidence of pneumoperitoneum. The bibasilar consolidation seen on today's chest x-ray at 3:47 PM are redemonstrated. Supine views: NG tube is present with its tip and port superimposed over the expected position of the gastric body. There are a few gas-and distended small and large colonic loops; the colon loops are not dilated but the small bowel loops are mildly dilated. IMPRESSION: Mildly dilated small bowel loops over the mid abdomen.
[2023-03-19] MEDS ORDERED: Potassium Replacement Protocol 1 EACH MISC MISCELLANE PRN (21:38)
[2023-03-20] MEDS: metroNIDAZOLE-NS PMX 500 MG in SALINE 1 100ML.BAG IVPB SCH ×3 (00:08→15:30)
[2023-03-20] MEDS: CEFEPIME 2 GM in SODIUM CHLORIDE 0.9% 100 ML IVPB SCH ×3 (00:08→15:30)
[2023-03-20] MEDS: METOPROLOL TARTRATE 5 MG/5 ML VIAL IVP SCH ×4 (00:08→18:11)
[2023-03-20] MEDS: POTASSIUM CHLORIDE 10 MEQ in WATER FOR INJECTION 1 100ML.BAG IVPB SCH ×6 (00:10→14:26)
[2023-03-20 00:46] LABS: Amorphous Sediment,Urine Occasional /hpf; Appearance,Urine Clear (Clear); Bacteria,Urine Rare /hpf; Bilirubin,Urine Negative (Negative); Blood,Urine Moderate (Negative); Color,Urine Yellow; Glucose,Urine (UA) Trace (Negative); Granular Casts,Urine 14 /lpf (0); Ketones,Urine 2+ (Negative); Leukocyte Esterase,Urine Negative (Negative); Mucus,Urine Occasional /hpf; Nitrite,Urine Negative (Negative); PH, Urine 5.5 (5.0-8.0); Protein,Urine Trace (Negative); RBC,Urine 50 /hpf (0-5); Specific Gravity,Urine 1.018 (1.001-1.035); Urobilinogen,Urine <2.0 mg/dL (<2.0); WBC,Urine 1 /hpf (0-5)
[2023-03-20] MEDS: HYDROmorphone 0.5 MG/0.5 ML SYRINGE IVP PRN ×2 (01:25→03:02)
[2023-03-20] MEDS: propofoL 100 ML IV ONE ×2 (02:45→05:04)
[2023-03-20 03:29] LABS: ABG Base Excess -0.8 mmol/L; ABG HCO3 24 mmol/L (21-25); ABG Oxygen Saturation 99.4 % (94-97); ABG PCO2 42 mmHg (35-45); ABG PH 7.38 (7.35-7.45); ABG PO2 231 mmHg (83-108); ABG TCO2 26 mmol/L (19-24)
[2023-03-20 03:39] LABS: Allen Test Performed? no
--- NOTE | 2023-03-20 03:40 | XR ---
EXAM: XR Chest, 1 View CLINICAL HISTORY: ITS.REASON XR Reason: Tube placement TECHNIQUE: Frontal view of the chest. COMPARISON: CXR March 20, 2023. FINDINGS: Lungs: Pulmonary vascular congestion. Pleural space: Unremarkable. No pneumothorax. Heart: Cardiomegaly. Mediastinum: Unremarkable. Bones/joints: Unremarkable. Vasculature: Right labia line terminates in the SVC. Tubes, lines and devices: Endotracheal tube terminates 6.1 cm above the leta. Feeding tube terminates in the stomach. IMPRESSION: 1. Endotracheal tube terminates 6.1 cm above the leta. 2. Feeding tube terminates in the stomach. 3. Right labia line terminates in the SVC. 4. Pulmonary vascular congestion.
[2023-03-20] MEDS: DILTIAZEM 125 MG in SODIUM CHLORIDE 0.9% 100 ML IV SCH ×2 (03:55→13:00)
[2023-03-20 05:58] LABS: Glucose,Whole Blood 132 mg/dL (70-110)
[2023-03-20] MEDS: HEPARIN SOD,PORK IN 0.45% NACL 25,000 UNIT in 0.45% NACL 1 250ML.BAG IV SCH ×2 (06:10→21:59)
[2023-03-20] MEDS: VANCOMYCIN 1,750 MG in SODIUM CHLORIDE 0.9% 500 ML 500 ML IVPB SCH ×2 (06:16→18:11)
[2023-03-20 06:19] LABS: Basophils % (A) 0 %; Eosinophils # (A) 0.1 k/uL (0-0.7); Eosinophils % (A) 0 %; HCT 34.2 % (39.0-53.0); HGB 11.1 gm/dL (13.0-17.5); Hypochromasia Slight; Lymphocytes # (A) 0.4 k/uL (1.0-4.8); Lymphocytes % (A) 3 %; MCH 30.2 pg (25.0-35.0); MCHC 32.4 g/dL (31.0-37.0); Mean Platelet Volume 8.2; Monocytes # (A) 0.6 k/uL (0-1.0); Monocytes % (A) 5 %; Neutrophils # (A) 11.6 k/uL (1.3-7.7); Neutrophils % (A) 91 %; Platelet Count 238 k/uL (150-450); RBC 3.68 m/uL (4.30-5.90); RDW 15.2 % (11.5-15.5); WBC 12.8 k/uL (3.8-10.6)
[2023-03-20 06:32] LABS: ALT 22 U/L (4-49); AST 46 U/L (17-59); African American GFR (CKD) 78 (>60 ml/min/1.73 sqM); Albumin 2.8 g/dL (3.5-5.0); Alkaline Phosphatase 69 U/L (38-126); Anion Gap 8 mmol/L; Bilirubin, Delta 0.6 mg/dL (0.0-0.2); Bilirubin,Unconjugated 0.3 mg/dL (0.0-1.1); Blood Urea Nitrogen 22 mg/dL (9-20); Calcium 7.6 mg/dL (8.4-10.2); Carbon Dioxide 26 mmol/L (22-30); Chloride 110 mmol/L (98-107); Creatine Kinase 251 U/L (55-170); LDH 353 U/L (120-246); Magnesium 2.4 mg/dL (1.6-2.3); Non-African American GFR(CKD) 68 (>60 ml/min/1.73 sqM); Potassium 3.4 mmol/L (3.5-5.1); Sodium 144 mmol/L (137-145); Total Bilirubin 0.9 mg/dL (0.2-1.3); Total Protein 5.3 g/dL (6.3-8.2)
[2023-03-20 06:33] LABS: Glucose 134 mg/dL (74-99)
[2023-03-20 07:59] LABS: C Reactive Protein 17.6 mg/dL (<1.0)
[2023-03-20] MEDS ORDERED: FUROSEMIDE 10 MG/ML 4 ML VIAL IV STA (08:03)
--- NOTE | 2023-03-20 08:07 | P.PN ---
Subjective Progress Note Date: 03/20/23 CHIEF COMPLAINT: Ileus HISTORY OF PRESENT ILLNESS: The patient is a 67-year-old male status post anter ior exposure for lumbar fusion, 03/13/2023. Gen. surgery has been following for ileus which she markedly improved with simethicone chews, IV magnesium, small course of Reglan. Patient developed acute fevers and worsening mental status in the last 24 hours. His at bedside as a nurse. CT of the abdomen and pelvis personally reviewed by me demonstrates no bowel obstruction or diffuse free air other than postsurgical changes from left anterior retroperitoneal exposure. I was notified by nurse last night patient has been transferred to the ICU after an A-TEAM was called. He is now intubated. No output from NG tube in over 2 days including per discussion with his . No further abdo tito distention. Patient is on multiple antibiotics. He has intermittent fevers and new pneumonia. ROS: No reports of nausea and vomiting. No bowel movements. Has fevers. PHYSICAL EXAM: VITAL SIGNS: Reviewed CONSTITUTIONAL: Well developed. EYES: Conjuctivae without sclera icterus. HEAD, EARS, NOSE, THROAT: Moist buccal mucosa. Head is atraumatic, normocephalic. Hears conversational speech. No nasal drainage. RESPIRATORY: Intubated. CARDIOVASCULAR: Palpable 2+ radial pulses. ABDOMEN: Moderate decrease in abdominal distention comparative the last few days. Mild distention. MUSCULOSKELETAL: No gross deformity of the lower extremities noted. No clubbing. No cyanosis. SKIN: Good skin turgor. Well perfused. NEUROLOGIC: Cranial nerves II through XII grossly intact. No focal or lateralizing signs. PSYCH: Sedated. CLINICAL LABS: Reviewed. WBC elevated. STUDIES: Acute abdominal series independently reviewed demonstrates moderately resolved prior ileus. No gross free air. Lower bilateral bases pneumonia. This is my independent interpretation. CT abdomen and pelvis independently reviewed demonstrates no bowel obstruction. Postsurgical changes of the left lower abdomen consistent with recent surgery. Bilateral pneumonia. This is my independent interpretation. ASSESSMENT: 1. Ileus, resolving 2. Sepsis presentation, new 3. Lumbar spondylolisthesis status post fusion 4. Hospital-acquired pneumonia 5. Metabolic encephalopathy PLAN: 1. Overall presentation and progression of new pneumonia requiring treatment with IV antibiotics. 2. Additionally, may benefit from neurosurgical assessment as patient also exhibiting change in mental status changes per discussion with patient's for metabolic encephalopathy 3. Overall, condition guarded. 4. Recommend complete workup for additional source of infection including recent lumbar fusion. Objective - Vital Signs Vital signs: Vital Signs Temp 99.6 F 03/20/23 04:30 Pulse 89 03/20/23 07:00 Resp 20 03/20/23 07:00 BP 121/78 03/20/23 07:00 Pulse Ox 96 03/20/23 07:00 FiO2 50 03/20/23 06:00 Intake & Output 03/19/23 03/20/23 03/20/23 18:59 06:59 18:59 Intake Total 001.468 6923.812 10 Output Total 1400 1045 75 Balance -0204.461 2314.812 -65 Weight 102.5 kg Intake: IV 60 10 KVO 60 10 Intake, IV Titration 966.769 1755.812 0 Amount ACETAMINOPHEN IV (For NPO 411 ) 1,000 mg In Empty Bag 1 bag @ 400 mls/hr IVPB Q6HR PRN Rx#:[id number] Cefepime 2 gm In Sodium 200 Chloride 0.9% 100 ml @ 25 mls/hr IVPB Q8HR [facility] Rx# :[id number] Diltiazem 125 mg In 125 107.5 Sodium Chloride 0.9% 100 ml @ 5 MG/HR 5 mls/hr IV .Q24H [facility] Rx#:[id number] Heparin Sod,Pork in 0.45% 244.712 257.393 0 NaCl 25,000 unit In 0.45 % NaCl 1 250ml.bag @ 9.4 UNITS/KG/HR 9.964 mls/hr IV .Q24H [facility] Rx#: [id number] Potassium Chloride 10 meq 100 In Water For Injection 1 100ml.bag @ 100 mls/hr IVPB Q1H [facility] Rx#: [id number] Potassium Chloride 10 meq 300 In Water For Injection 1 100ml.bag @ 100 mls/hr IVPB Q1HR [facility] Rx#: [id number] Vancomycin 1,750 mg In 1000 Sodium Chloride 0.9% 500 ml 500 ml @ 167 mls/hr IVPB Q12H [facility] Rx#: [id number] metroNIDAZOLE-NS PMX 500 100 mg In Saline 1 100ml.bag @ 100 mls/hr IVPB Q8HR [facility] Rx#:[id number] propofoL 1,000 mg In 48.919 Empty Bag 1 bag @ 15 MCG/ KG/MIN 9.54 mls/hr IV . [id number] [facility] Rx#:[id number] Output: Urine 1400 1045 75 Other: Voiding Method Indwelling Catheter Indwelling Catheter ABP, PAP, CO, CI - Last Documented Arterial Blood Pressure 134/57 - Labs CBC & Chem 7: 03/20/23 05:45 03/20/23 05:45 Labs: Abnormal Lab Results - Last 24 Hours (Table) 03/19/23 03/19/23 03/19/23 Range/Units 00:00 07:43 07:43 WBC 11.1 H (3.8-10.6) k/uL RBC 3.89 L (4.30-5.90) m/uL Hgb 11.9 L (13.0-17.5) gm/dL Hct 35.7 L (39.0-53.0) % Neutrophils # 9.7 H (1.3-7.7) k/uL Lymphocytes # 0.4 L (1.0-4.8) k/uL APTT (22.0-30.0) sec D-Dimer (<0.60) mg/L FEU ABG pH (7.35-7.45) ABG pCO2 (35-45) mmHg ABG pO2 (83-108) mmHg ABG Total CO2 (19-24) mmol/L ABG O2 Saturation (94-97) % Potassium 3.2 L (3.5-5.1) mmol/L Chloride (98-107) mmol/L BUN 24 H (9-20) mg/dL Glucose 130 H (74-99) mg/dL POC Glucose (mg/dL) (70-110) mg/dL Calcium 8.0 L (8.4-10.2) mg/dL Magnesium (1.6-2.3) mg/dL Total Bilirubin (0.2-1.3) mg/dL Delta Bilirubin (0.0-0.2) mg/dL AST 62 H (17-59) U/L Lactate Dehydrogenase (120-246) U/L Creatine Kinase (55-170) U/L C-Reactive Protein 12.7 H (<1.0) mg/dL Total Protein 5.5 L (6.3-8.2) g/dL Albumin 3.3 L (3.5-5.0) g/dL Free T3 pg/mL (2.8-5.3) pg/ml Urine Protein Trace H (Negative) Urine Glucose (UA) Trace H (Negative) Urine Ketones 2+ H (Negative) Urine Blood Moderate H (Negative) Urine RBC 50 H (0-5) /hpf Amorphous Sediment Occasional H (None) /hpf Urine Bacteria Rare H (None) /hpf Urine Mucus Occasional H (None) /hpf 03/19/23 03/19/23 03/19/23 Range/Units 07:43 10:50 20:30 WBC 14.0 H (3.8-10.6) k/uL RBC 4.15 L (4.30-5.90) m/uL Hgb 12.4 L (13.0-17.5) gm/dL Hct 38.3 L (39.0-53.0) % Neutrophils # 12.3 H (1.3-7.7) k/uL Lymphocytes # 0.5 L (1.0-4.8) k/uL APTT 67.3 H (22.0-30.0) sec D-Dimer (<0.60) mg/L FEU ABG pH (7.35-7.45) ABG pCO2 (35-45) mmHg ABG pO2 (83-108) mmHg ABG Total CO2 (19-24) mmol/L ABG O2 Saturation (94-97) % Potassium 2.8 L (3.5-5.1) mmol/L Chloride (98-107) mmol/L BUN 23 H (9-20) mg/dL Glucose 132 H (74-99) mg/dL POC Glucose (mg/dL) (70-110) mg/dL Calcium 8.2 L (8.4-10.2) mg/dL Magnesium (1.6-2.3) mg/dL Total Bilirubin (0.2-1.3) mg/dL Delta Bilirubin 0.8 H (0.0-0.2) mg/dL AST 73 H (17-59) U/L Lactate Dehydrogenase 315 H (120-246) U/L Creatine Kinase 419 H (55-170) U/L C-Reactive Protein 15.8 H (<1.0) mg/dL Total Protein 6.0 L (6.3-8.2) g/dL Albumin 3.2 L (3.5-5.0) g/dL Free T3 pg/mL 2.1 L (2.8-5.3) pg/ml Urine Protein (Negative) Urine Glucose (UA) (Negative) Urine Ketones (Negative) Urine Blood (Negative) Urine RBC (0-5) /hpf Amorphous Sediment (None) /hpf Urine Bacteria (None) /hpf Urine Mucus (None) /hpf 03/19/23 03/19/23 03/19/23 Range/Units 20:30 20:59 21:11 WBC (3.8-10.6) k/uL RBC (4.30-5.90) m/uL Hgb (13.0-17.5) gm/dL Hct (39.0-53.0) % Neutrophils # (1.3-7.7) k/uL Lymphocytes # (1.0-4.8) k/uL APTT (22.0-30.0) sec D-Dimer (<0.60) mg/L FEU ABG pH 7.50 H (7.35-7.45) ABG pCO2 32 L (35-45) mmHg ABG pO2 67 L (83-108) mmHg ABG Total CO2 26 H (19-24) mmol/L ABG O2 Saturation 93.7 L (94-97) % Potassium 3.1 L (3.5-5.1) mmol/L Chloride 108 H (98-107) mmol/L BUN 22 H (9-20) mg/dL Glucose 115 H (74-99) mg/dL POC Glucose (mg/dL) 131 H (70-110) mg/dL Calcium 7.8 L (8.4-10.2) mg/dL Magnesium (1.6-2.3) mg/dL Total Bilirubin 1.4 H (0.2-1.3) mg/dL Delta Bilirubin (0.0-0.2) mg/dL AST (17-59) U/L Lactate Dehydrogenase (120-246) U/L Creatine Kinase (55-170) U/L C-Reactive Protein (<1.0) mg/dL Total Protein 5.8 L (6.3-8.2) g/dL Albumin 3.3 L (3.5-5.0) g/dL Free T3 pg/mL (2.8-5.3) pg/ml Urine Protein (Negative) Urine Glucose (UA) (Negative) Urine Ketones (Negative) Urine Blood (Negative) Urine RBC (0-5) /hpf Amorphous Sediment (None) /hpf Urine Bacteria (None) /hpf Urine Mucus (None) /hpf 03/19/23 03/20/23 03/20/23 Range/Units 21:56 03:25 05:45 WBC 12.8 H (3.8-10.6) k/uL RBC 3.68 L (4.30-5.90) m/uL Hgb 11.1 L (13.0-17.5) gm/dL Hct 34.2 L (39.0-53.0) % Neutrophils # 11.6 H (1.3-7.7) k/uL Lymphocytes # 0.4 L (1.0-4.8) k/uL APTT (22.0-30.0) sec D-Dimer 1.27 H (<0.60) mg/L FEU ABG pH (7.35-7.45) ABG pCO2 (35-45) mmHg ABG pO2 231 H (83-108) mmHg ABG Total CO2 26 H (19-24) mmol/L ABG O2 Saturation 99.4 H (94-97) % Potassium (3.5-5.1) mmol/L Chloride (98-107) mmol/L BUN (9-20) mg/dL Glucose (74-99) mg/dL POC Glucose (mg/dL) (70-110) mg/dL Calcium (8.4-10.2) mg/dL Magnesium (1.6-2.3) mg/dL Total Bilirubin (0.2-1.3) mg/dL Delta Bilirubin (0.0-0.2) mg/dL AST (17-59) U/L Lactate Dehydrogenase (120-246) U/L Creatine Kinase (55-170) U/L C-Reactive Protein (<1.0) mg/dL Total Protein (6.3-8.2) g/dL Albumin (3.5-5.0) g/dL Free T3 pg/mL (2.8-5.3) pg/ml Urine Protein (Negative) Urine Glucose (UA) (Negative) Urine Ketones (Negative) Urine Blood (Negative) Urine RBC (0-5) /hpf Amorphous Sediment (None) /hpf Urine Bacteria (None) /hpf Urine Mucus (None) /hpf 03/20/23 03/20/23 03/20/23 Range/Units 05:45 05:45 05:56 WBC (3.8-10.6) k/uL RBC (4.30-5.90) m/uL Hgb (13.0-17.5) gm/dL Hct (39.0-53.0) % Neutrophils # (1.3-7.7) k/uL Lymphocytes # (1.0-4.8) k/uL APTT 146.9 H* (22.0-30.0) sec D-Dimer (<0.60) mg/L FEU ABG pH (7.35-7.45) ABG pCO2 (35-45) mmHg ABG pO2 (83-108) mmHg ABG Total CO2 (19-24) mmol/L ABG O2 Saturation (94-97) % Potassium 3.4 L (3.5-5.1) mmol/L Chloride 110 H (98-107) mmol/L BUN 22 H (9-20) mg/dL Glucose 134 H (74-99) mg/dL POC Glucose (mg/dL) 132 H (70-110) mg/dL Calcium 7.6 L (8.4-10.2) mg/dL Magnesium 2.4 H (1.6-2.3) mg/dL Total Bilirubin (0.2-1.3) mg/dL Delta Bilirubin 0.6 H (0.0-0.2) mg/dL AST (17-59) U/L Lactate Dehydrogenase 353 H (120-246) U/L Creatine Kinase 251 H (55-170) U/L C-Reactive Protein 17.6 H (<1.0) mg/dL Total Protein 5.3 L (6.3-8.2) g/dL Albumin 2.8 L (3.5-5.0) g/dL Free T3 pg/mL (2.8-5.3) pg/ml Urine Protein (Negative) Urine Glucose (UA) (Negative) Urine Ketones (Negative) Urine Blood (Negative) Urine RBC (0-5) /hpf Amorphous Sediment (None) /hpf Urine Bacteria (None) /hpf Urine Mucus (None) /hpf Microbiology - Last 24 Hours (Table) 03/18/23 15:14 Blood Culture - Preliminary Blood 03/18/23 15:06 Blood Culture - Preliminary Blood 03/14/23 01:06 Blood Culture - Final Blood
[2023-03-20] MEDS: IPRATROPIUM-ALBUTEROL 3 ML NEB INHALATION PRN ×3 (08:09→15:14)
[2023-03-20] MEDS: GABAPENTIN 300 MG CAP PO SCH ×3 (09:20→21:56)
[2023-03-20] MEDS: ASPIRIN 81 MG PO SCH (09:20)
[2023-03-20] MEDS: CHLORHEXIDINE GLUCONATE 15 ML CUP MUCOUS MEM SCH ×2 (09:24→21:55)
[2023-03-20] MEDS: methylPREDNISolone SOD SUCCI 40 MG/ML 1 ML VIAL IV SCH ×2 (09:27→15:29)
[2023-03-20] MEDS: PANTOPRAZOLE 40 MG/10 ML VIAL IVP SCH (09:28)
--- NOTE | 2023-03-20 09:34 | P.PN ---
Subjective Progress Note Date: 03/20/23 The patient is a 67-year-old male who is currently admitted to the hospital after undergoing elective back surgery on 03/13/2023. Postoperatively he developed an ileus and A. fib/typical atrial flutter. Yesterday the patient had mental status changes and therefore was transferred to the ICU and was intub ated. From the cardiac standpoint he is maintaining sinus rhythm on IV medications as he cannot tolerate orals secondary to his ileus. GENERAL:Ill-appearing, well-nourished and in no acute distress. Intubated and sedated NECK: Supple without JVD or thyromegaly. LUNGS: Breath sounds clear to auscultation bilaterally. Respiration equal and unlabored. No wheezes, rales or rhonchi. HEART: Regular rate and rhythm without murmurs, rubs or gallops. S1 and S2 heard. EXTREMITIES: Normal range of motion, no edema. No clubbing or cyanosis. Peripheral pulses intact and strong. TELEMETRY: Sinus rhythm with a heart rate in the 70s to 90s IMPRESSION: Status post L5 to S1 and I am and L4 to S1 posterior lateral interbody fusion Postoperative ileus New onset paroxysmal atrial flutter fibrillation/typical atrial flutter Non-STEMI Acute hypoxic respiratory failure PLAN: Continue IV cardiac medications Continue supportive treatment Further recommendations based on clinical course I am dictating on behalf of Dr Radames Wagner's history/physical and assessment/plan. Objective - Vital Signs Vital signs: Vital Signs Temp 99.6 F 03/20/23 04:30 Pulse 87 03/20/23 08:18 Resp 20 03/20/23 07:00 BP 121/78 03/20/23 07:00 Pulse Ox 96 03/20/23 07:00 FiO2 50 03/20/23 07:45 Intake & Output 03/19/23 03/20/23 03/20/23 18:59 06:59 18:59 Intake Total 721.574 6805.812 106.82 Output Total 1400 1045 75 Balance -7643.351 3398.812 31.82 Weight 102.5 kg Intake: IV 60 10 KVO 60 10 Intake, IV Titration 953.752 6653.812 96.82 Amount ACETAMINOPHEN IV (For NPO 411 ) 1,000 mg In Empty Bag 1 bag @ 400 mls/hr IVPB Q6HR PRN Rx#:[id number] Cefepime 2 gm In Sodium 200 Chloride 0.9% 100 ml @ 25 mls/hr IVPB Q8HR COUNTS INCLUDE 234 BEDS AT THE [facility] Rx# :[id number] Diltiazem 125 mg In 125 107.5 Sodium Chloride 0.9% 100 ml @ 5 MG/HR 5 mls/hr IV .Q24H [facility] Rx#:[id number] Heparin Sod,Pork in 0.45% 244.712 257.393 0 NaCl 25,000 unit In 0.45 % NaCl 1 250ml.bag @ 9.4 UNITS/KG/HR 9.964 mls/hr IV .Q24H [facility] Rx#: [id number] Potassium Chloride 10 meq 100 In Water For Injection 1 100ml.bag @ 100 mls/hr IVPB Q1H [facility] Rx#: [id number] Potassium Chloride 10 meq 300 In Water For Injection 1 100ml.bag @ 100 mls/hr IVPB Q1HR [facility] Rx#: [id number] Vancomycin 1,750 mg In 1000 Sodium Chloride 0.9% 500 ml 500 ml @ 167 mls/hr IVPB Q12H COUNTS INCLUDE 234 BEDS AT THE [facility] Rx#: [id number] metroNIDAZOLE-NS PMX 500 100 mg In Saline 1 100ml.bag @ 100 mls/hr IVPB Q8HR COUNTS INCLUDE 234 BEDS AT THE [facility] Rx#:[id number] propofoL 1,000 mg In 48.919 96.82 Empty Bag 1 bag @ 15 MCG/ KG/MIN 9.54 mls/hr IV . [id number] COUNTS INCLUDE 234 BEDS AT THE [facility] Rx#:[id number] Output: Urine 1400 1045 75 Other: Voiding Method Indwelling Catheter Indwelling Catheter ABP, PAP, CO, CI - Last Documented Arterial Blood Pressure 134/57 - Labs CBC & Chem 7: 03/20/23 05:45 03/20/23 05:45 Labs: Abnormal Lab Results - Last 24 Hours (Table) 03/19/23 03/19/23 03/19/23 Range/Units 00:00 07:43 10:50 WBC (3.8-10.6) k/uL RBC (4.30-5.90) m/uL Hgb (13.0-17.5) gm/dL Hct (39.0-53.0) % Neutrophils # (1.3-7.7) k/uL Lymphocytes # (1.0-4.8) k/uL APTT (22.0-30.0) sec D-Dimer (<0.60) mg/L FEU ABG pH (7.35-7.45) ABG pCO2 (35-45) mmHg ABG pO2 (83-108) mmHg ABG Total CO2 (19-24) mmol/L ABG O2 Saturation (94-97) % Potassium 2.8 L (3.5-5.1) mmol/L Chloride (98-107) mmol/L BUN 23 H (9-20) mg/dL Glucose 132 H (74-99) mg/dL POC Glucose (mg/dL) (70-110) mg/dL Calcium 8.2 L (8.4-10.2) mg/dL Magnesium (1.6-2.3) mg/dL Total Bilirubin (0.2-1.3) mg/dL Delta Bilirubin 0.8 H (0.0-0.2) mg/dL AST 73 H (17-59) U/L Lactate Dehydrogenase 315 H (120-246) U/L Creatine Kinase 419 H (55-170) U/L C-Reactive Protein 12.7 H 15.8 H (<1.0) mg/dL Total Protein 6.0 L (6.3-8.2) g/dL Albumin 3.2 L (3.5-5.0) g/dL Free T3 pg/mL 2.1 L (2.8-5.3) pg/ml Urine Protein Trace H (Negative) Urine Glucose (UA) Trace H (Negative) Urine Ketones 2+ H (Negative) Urine Blood Moderate H (Negative) Urine RBC 50 H (0-5) /hpf Amorphous Sediment Occasional H (None) /hpf Urine Bacteria Rare H (None) /hpf Urine Mucus Occasional H (None) /hpf 03/19/23 03/19/23 03/19/23 Range/Units 20:30 20:30 20:59 WBC 14.0 H (3.8-10.6) k/uL RBC 4.15 L (4.30-5.90) m/uL Hgb 12.4 L (13.0-17.5) gm/dL Hct 38.3 L (39.0-53.0) % Neutrophils # 12.3 H (1.3-7.7) k/uL Lymphocytes # 0.5 L (1.0-4.8) k/uL APTT (22.0-30.0) sec D-Dimer (<0.60) mg/L FEU ABG pH (7.35-7.45) ABG pCO2 (35-45) mmHg ABG pO2 (83-108) mmHg ABG Total CO2 (19-24) mmol/L ABG O2 Saturation (94-97) % Potassium 3.1 L (3.5-5.1) mmol/L Chloride 108 H (98-107) mmol/L BUN 22 H (9-20) mg/dL Glucose 115 H (74-99) mg/dL POC Glucose (mg/dL) 131 H (70-110) mg/dL Calcium 7.8 L (8.4-10.2) mg/dL Magnesium (1.6-2.3) mg/dL Total Bilirubin 1.4 H (0.2-1.3) mg/dL Delta Bilirubin (0.0-0.2) mg/dL AST (17-59) U/L Lactate Dehydrogenase (120-246) U/L Creatine Kinase (55-170) U/L C-Reactive Protein (<1.0) mg/dL Total Protein 5.8 L (6.3-8.2) g/dL Albumin 3.3 L (3.5-5.0) g/dL Free T3 pg/mL (2.8-5.3) pg/ml Urine Protein (Negative) Urine Glucose (UA) (Negative) Urine Ketones (Negative) Urine Blood (Negative) Urine RBC (0-5) /hpf Amorphous Sediment (None) /hpf Urine Bacteria (None) /hpf Urine Mucus (None) /hpf 03/19/23 03/19/23 03/20/23 Range/Units 21:11 21:56 03:25 WBC (3.8-10.6) k/uL RBC (4.30-5.90) m/uL Hgb (13.0-17.5) gm/dL Hct (39.0-53.0) % Neutrophils # (1.3-7.7) k/uL Lymphocytes # (1.0-4.8) k/uL APTT (22.0-30.0) sec D-Dimer 1.27 H (<0.60) mg/L FEU ABG pH 7.50 H (7.35-7.45) ABG pCO2 32 L (35-45) mmHg ABG pO2 67 L 231 H (83-108) mmHg ABG Total CO2 26 H 26 H (19-24) mmol/L ABG O2 Saturation 93.7 L 99.4 H (94-97) % Potassium (3.5-5.1) mmol/L Chloride (98-107) mmol/L BUN (9-20) mg/dL Glucose (74-99) mg/dL POC Glucose (mg/dL) (70-110) mg/dL Calcium (8.4-10.2) mg/dL Magnesium (1.6-2.3) mg/dL Total Bilirubin (0.2-1.3) mg/dL Delta Bilirubin (0.0-0.2) mg/dL AST (17-59) U/L Lactate Dehydrogenase (120-246) U/L Creatine Kinase (55-170) U/L C-Reactive Protein (<1.0) mg/dL Total Protein (6.3-8.2) g/dL Albumin (3.5-5.0) g/dL Free T3 pg/mL (2.8-5.3) pg/ml Urine Protein (Negative) Urine Glucose (UA) (Negative) Urine Ketones (Negative) Urine Blood (Negative) Urine RBC (0-5) /hpf Amorphous Sediment (None) /hpf Urine Bacteria (None) /hpf Urine Mucus (None) /hpf 03/20/23 03/20/23 03/20/23 Range/Units 05:45 05:45 05:45 WBC 12.8 H (3.8-10.6) k/uL RBC 3.68 L (4.30-5.90) m/uL Hgb 11.1 L (13.0-17.5) gm/dL Hct 34.2 L (39.0-53.0) % Neutrophils # 11.6 H (1.3-7.7) k/uL Lymphocytes # 0.4 L (1.0-4.8) k/uL APTT 146.9 H* (22.0-30.0) sec D-Dimer (<0.60) mg/L FEU ABG pH (7.35-7.45) ABG pCO2 (35-45) mmHg ABG pO2 (83-108) mmHg ABG Total CO2 (19-24) mmol/L ABG O2 Saturation (94-97) % Potassium 3.4 L (3.5-5.1) mmol/L Chloride 110 H (98-107) mmol/L BUN 22 H (9-20) mg/dL Glucose 134 H (74-99) mg/dL POC Glucose (mg/dL) (70-110) mg/dL Calcium 7.6 L (8.4-10.2) mg/dL Magnesium 2.4 H (1.6-2.3) mg/dL Total Bilirubin (0.2-1.3) mg/dL Delta Bilirubin 0.6 H (0.0-0.2) mg/dL AST (17-59) U/L Lactate Dehydrogenase 353 H (120-246) U/L Creatine Kinase 251 H (55-170) U/L C-Reactive Protein 17.6 H (<1.0) mg/dL Total Protein 5.3 L (6.3-8.2) g/dL Albumin 2.8 L (3.5-5.0) g/dL Free T3 pg/mL (2.8-5.3) pg/ml Urine Protein (Negative) Urine Glucose (UA) (Negative) Urine Ketones (Negative) Urine Blood (Negative) Urine RBC (0-5) /hpf Amorphous Sediment (None) /hpf Urine Bacteria (None) /hpf Urine Mucus (None) /hpf 03/20/23 Range/Units 05:56 WBC (3.8-10.6) k/uL RBC (4.30-5.90) m/uL Hgb (13.0-17.5) gm/dL Hct (39.0-53.0) % Neutrophils # (1.3-7.7) k/uL Lymphocytes # (1.0-4.8) k/uL APTT (22.0-30.0) sec D-Dimer (<0.60) mg/L FEU ABG pH (7.35-7.45) ABG pCO2 (35-45) mmHg ABG pO2 (83-108) mmHg ABG Total CO2 (19-24) mmol/L ABG O2 Saturation (94-97) % Potassium (3.5-5.1) mmol/L Chloride (98-107) mmol/L BUN (9-20) mg/dL Glucose (74-99) mg/dL POC Glucose (mg/dL) 132 H (70-110) mg/dL Calcium (8.4-10.2) mg/dL Magnesium (1.6-2.3) mg/dL Total Bilirubin (0.2-1.3) mg/dL Delta Bilirubin (0.0-0.2) mg/dL AST (17-59) U/L Lactate Dehydrogenase (120-246) U/L Creatine Kinase (55-170) U/L C-Reactive Protein (<1.0) mg/dL Total Protein (6.3-8.2) g/dL Albumin (3.5-5.0) g/dL Free T3 pg/mL (2.8-5.3) pg/ml Urine Protein (Negative) Urine Glucose (UA) (Negative) Urine Ketones (Negative) Urine Blood (Negative) Urine RBC (0-5) /hpf Amorphous Sediment (None) /hpf Urine Bacteria (None) /hpf Urine Mucus (None) /hpf Microbiology - Last 24 Hours (Table) 03/18/23 15:14 Blood Culture - Preliminary Blood 03/18/23 15:06 Blood Culture - Preliminary Blood 03/14/23 01:06 Blood Culture - Final Blood
--- NOTE | 2023-03-20 09:47 | P.PN ---
Subjective Progress Note Date: 03/20/23 Principal diagnosis: L5-S1 grade 2 spondylolisthesis L4 S1 spondylosis lower extremity radiculopathy Patient seen and examined this morning in ICU. Patient was transferred last night due to respiratory distress. Patient was intubated at approx 0240 this morning, current vent setting PEEP 5, FIO2 50%. Patient had been febrile throughout the day yesterday and tachycardic. He became increasing lethargic and respiratory status compromised. Chest xray taken yesterday afternoon demonstrates concern for pneumonia. Patient continued to become more lethargic and nonverbal. Oxygen demands increased and A-team was called with patient transfer. Patient's spouse is at bedside this morning. VSS, Temp: 99.6, BP 121/78, HR 89, RR 20, SpO2 96%. Abdomen continues to be less firm, less distended today. Anterior surgical dressing and Posterior paralumbar surgical dressing are CDI. Spoke to Dr. Villa this morning regarding change of status, updated on current regimen and reports. Objective - Vital Signs Vital signs: Vital Signs Temp 99.6 F 03/20/23 04:30 Pulse 87 03/20/23 08:18 Resp 20 03/20/23 07:00 BP 121/78 03/20/23 07:00 Pulse Ox 96 03/20/23 07:00 FiO2 50 03/20/23 07:45 Intake & Output 03/19/23 03/20/23 03/20/23 18:59 06:59 18:59 Intake Total 860.221 5673.812 10 Output Total 1400 1045 75 Balance -6744.710 6830.812 -65 Weight 102.5 kg Intake: IV 60 10 KVO 60 10 Intake, IV Titration 396.861 8622.812 0 Amount ACETAMINOPHEN IV (For NPO 411 ) 1,000 mg In Empty Bag 1 bag @ 400 mls/hr IVPB Q6HR PRN Rx#:[id number] Cefepime 2 gm In Sodium 200 Chloride 0.9% 100 ml @ 25 mls/hr IVPB Q8HR [facility] Rx# :[id number] Diltiazem 125 mg In 125 107.5 Sodium Chloride 0.9% 100 ml @ 5 MG/HR 5 mls/hr IV .Q24H [facility] Rx#:[id number] Heparin Sod,Pork in 0.45% 244.712 257.393 0 NaCl 25,000 unit In 0.45 % NaCl 1 250ml.bag @ 9.4 UNITS/KG/HR 9.964 mls/hr IV .Q24H [facility] Rx#: [id number] Potassium Chloride 10 meq 100 In Water For Injection 1 100ml.bag @ 100 mls/hr IVPB Q1H [facility] Rx#: [id number] Potassium Chloride 10 meq 300 In Water For Injection 1 100ml.bag @ 100 mls/hr IVPB Q1HR [facility] Rx#: [id number] Vancomycin 1,750 mg In 1000 Sodium Chloride 0.9% 500 ml 500 ml @ 167 mls/hr IVPB Q12H [facility] Rx#: [id number] metroNIDAZOLE-NS PMX 500 100 mg In Saline 1 100ml.bag @ 100 mls/hr IVPB Q8HR [facility] Rx#:[id number] propofoL 1,000 mg In 48.919 Empty Bag 1 bag @ 15 MCG/ KG/MIN 9.54 mls/hr IV . [id number] [facility] Rx#:[id number] Output: Urine 1400 1045 75 Other: Voiding Method Indwelling Catheter Indwelling Catheter ABP, PAP, CO, CI - Last Documented Arterial Blood Pressure 134/57 - Exam Physical Examination General: Resting comfortable on Mechanical vent PEEP 5, FIO2 50% Integumentary: Surgical dressing to the anterior, lower midline abdomen is CDI, Posterior, paralumbar surgical dressings, CDI. - Labs CBC & Chem 7: 03/20/23 05:45 03/20/23 05:45 Labs: Abnormal Lab Results - Last 24 Hours (Table) 03/19/23 03/19/23 03/19/23 Range/Units 00:00 07:43 07:43 WBC 11.1 H (3.8-10.6) k/uL RBC 3.89 L (4.30-5.90) m/uL Hgb 11.9 L (13.0-17.5) gm/dL Hct 35.7 L (39.0-53.0) % Neutrophils # 9.7 H (1.3-7.7) k/uL Lymphocytes # 0.4 L (1.0-4.8) k/uL APTT (22.0-30.0) sec D-Dimer (<0.60) mg/L FEU ABG pH (7.35-7.45) ABG pCO2 (35-45) mmHg ABG pO2 (83-108) mmHg ABG Total CO2 (19-24) mmol/L ABG O2 Saturation (94-97) % Potassium 3.2 L (3.5-5.1) mmol/L Chloride (98-107) mmol/L BUN 24 H (9-20) mg/dL Glucose 130 H (74-99) mg/dL POC Glucose (mg/dL) (70-110) mg/dL Calcium 8.0 L (8.4-10.2) mg/dL Magnesium (1.6-2.3) mg/dL Total Bilirubin (0.2-1.3) mg/dL Delta Bilirubin (0.0-0.2) mg/dL AST 62 H (17-59) U/L Lactate Dehydrogenase (120-246) U/L Creatine Kinase (55-170) U/L C-Reactive Protein 12.7 H (<1.0) mg/dL Total Protein 5.5 L (6.3-8.2) g/dL Albumin 3.3 L (3.5-5.0) g/dL Free T3 pg/mL (2.8-5.3) pg/ml Urine Protein Trace H (Negative) Urine Glucose (UA) Trace H (Negative) Urine Ketones 2+ H (Negative) Urine Blood Moderate H (Negative) Urine RBC 50 H (0-5) /hpf Amorphous Sediment Occasional H (None) /hpf Urine Bacteria Rare H (None) /hpf Urine Mucus Occasional H (None) /hpf 03/19/23 03/19/23 03/19/23 Range/Units 07:43 10:50 20:30 WBC 14.0 H (3.8-10.6) k/uL RBC 4.15 L (4.30-5.90) m/uL Hgb 12.4 L (13.0-17.5) gm/dL Hct 38.3 L (39.0-53.0) % Neutrophils # 12.3 H (1.3-7.7) k/uL Lymphocytes # 0.5 L (1.0-4.8) k/uL APTT 67.3 H (22.0-30.0) sec D-Dimer (<0.60) mg/L FEU ABG pH (7.35-7.45) ABG pCO2 (35-45) mmHg ABG pO2 (83-108) mmHg ABG Total CO2 (19-24) mmol/L ABG O2 Saturation (94-97) % Potassium 2.8 L (3.5-5.1) mmol/L Chloride (98-107) mmol/L BUN 23 H (9-20) mg/dL Glucose 132 H (74-99) mg/dL POC Glucose (mg/dL) (70-110) mg/dL Calcium 8.2 L (8.4-10.2) mg/dL Magnesium (1.6-2.3) mg/dL Total Bilirubin (0.2-1.3) mg/dL Delta Bilirubin 0.8 H (0.0-0.2) mg/dL AST 73 H (17-59) U/L Lactate Dehydrogenase 315 H (120-246) U/L Creatine Kinase 419 H (55-170) U/L C-Reactive Protein 15.8 H (<1.0) mg/dL Total Protein 6.0 L (6.3-8.2) g/dL Albumin 3.2 L (3.5-5.0) g/dL Free T3 pg/mL 2.1 L (2.8-5.3) pg/ml Urine Protein (Negative) Urine Glucose (UA) (Negative) Urine Ketones (Negative) Urine Blood (Negative) Urine RBC (0-5) /hpf Amorphous Sediment (None) /hpf Urine Bacteria (None) /hpf Urine Mucus (None) /hpf 03/19/23 03/19/23 03/19/23 Range/Units 20:30 20:59 21:11 WBC (3.8-10.6) k/uL RBC (4.30-5.90) m/uL Hgb (13.0-17.5) gm/dL Hct (39.0-53.0) % Neutrophils # (1.3-7.7) k/uL Lymphocytes # (1.0-4.8) k/uL APTT (22.0-30.0) sec D-Dimer (<0.60) mg/L FEU ABG pH 7.50 H (7.35-7.45) ABG pCO2 32 L (35-45) mmHg ABG pO2 67 L (83-108) mmHg ABG Total CO2 26 H (19-24) mmol/L ABG O2 Saturation 93.7 L (94-97) % Potassium 3.1 L (3.5-5.1) mmol/L Chloride 108 H (98-107) mmol/L BUN 22 H (9-20) mg/dL Glucose 115 H (74-99) mg/dL POC Glucose (mg/dL) 131 H (70-110) mg/dL Calcium 7.8 L (8.4-10.2) mg/dL Magnesium (1.6-2.3) mg/dL Total Bilirubin 1.4 H (0.2-1.3) mg/dL Delta Bilirubin (0.0-0.2) mg/dL AST (17-59) U/L Lactate Dehydrogenase (120-246) U/L Creatine Kinase (55-170) U/L C-Reactive Protein (<1.0) mg/dL Total Protein 5.8 L (6.3-8.2) g/dL Albumin 3.3 L (3.5-5.0) g/dL Free T3 pg/mL (2.8-5.3) pg/ml Urine Protein (Negative) Urine Glucose (UA) (Negative) Urine Ketones (Negative) Urine Blood (Negative) Urine RBC (0-5) /hpf Amorphous Sediment (None) /hpf Urine Bacteria (None) /hpf Urine Mucus (None) /hpf 03/19/23 03/20/23 03/20/23 Range/Units 21:56 03:25 05:45 WBC 12.8 H (3.8-10.6) k/uL RBC 3.68 L (4.30-5.90) m/uL Hgb 11.1 L (13.0-17.5) gm/dL Hct 34.2 L (39.0-53.0) % Neutrophils # 11.6 H (1.3-7.7) k/uL Lymphocytes # 0.4 L (1.0-4.8) k/uL APTT (22.0-30.0) sec D-Dimer 1.27 H (<0.60) mg/L FEU ABG pH (7.35-7.45) ABG pCO2 (35-45) mmHg ABG pO2 231 H (83-108) mmHg ABG Total CO2 26 H (19-24) mmol/L ABG O2 Saturation 99.4 H (94-97) % Potassium (3.5-5.1) mmol/L Chloride (98-107) mmol/L BUN (9-20) mg/dL Glucose (74-99) mg/dL POC Glucose (mg/dL) (70-110) mg/dL Calcium (8.4-10.2) mg/dL Magnesium (1.6-2.3) mg/dL Total Bilirubin (0.2-1.3) mg/dL Delta Bilirubin (0.0-0.2) mg/dL AST (17-59) U/L Lactate Dehydrogenase (120-246) U/L Creatine Kinase (55-170) U/L C-Reactive Protein (<1.0) mg/dL Total Protein (6.3-8.2) g/dL Albumin (3.5-5.0) g/dL Free T3 pg/mL (2.8-5.3) pg/ml Urine Protein (Negative) Urine Glucose (UA) (Negative) Urine Ketones (Negative) Urine Blood (Negative) Urine RBC (0-5) /hpf Amorphous Sediment (None) /hpf Urine Bacteria (None) /hpf Urine Mucus (None) /hpf 03/20/23 03/20/23 03/20/23 Range/Units 05:45 05:45 05:56 WBC (3.8-10.6) k/uL RBC (4.30-5.90) m/uL Hgb (13.0-17.5) gm/dL Hct (39.0-53.0) % Neutrophils # (1.3-7.7) k/uL Lymphocytes # (1.0-4.8) k/uL APTT 146.9 H* (22.0-30.0) sec D-Dimer (<0.60) mg/L FEU ABG pH (7.35-7.45) ABG pCO2 (35-45) mmHg ABG pO2 (83-108) mmHg ABG Total CO2 (19-24) mmol/L ABG O2 Saturation (94-97) % Potassium 3.4 L (3.5-5.1) mmol/L Chloride 110 H (98-107) mmol/L BUN 22 H (9-20) mg/dL Glucose 134 H (74-99) mg/dL POC Glucose (mg/dL) 132 H (70-110) mg/dL Calcium 7.6 L (8.4-10.2) mg/dL Magnesium 2.4 H (1.6-2.3) mg/dL Total Bilirubin (0.2-1.3) mg/dL Delta Bilirubin 0.6 H (0.0-0.2) mg/dL AST (17-59) U/L Lactate Dehydrogenase 353 H (120-246) U/L Creatine Kinase 251 H (55-170) U/L C-Reactive Protein 17.6 H (<1.0) mg/dL Total Protein 5.3 L (6.3-8.2) g/dL Albumin 2.8 L (3.5-5.0) g/dL Free T3 pg/mL (2.8-5.3) pg/ml Urine Protein (Negative) Urine Glucose (UA) (Negative) Urine Ketones (Negative) Urine Blood (Negative) Urine RBC (0-5) /hpf Amorphous Sediment (None) /hpf Urine Bacteria (None) /hpf Urine Mucus (None) /hpf Microbiology - Last 24 Hours (Table) 03/18/23 15:14 Blood Culture - Preliminary Blood 03/18/23 15:06 Blood Culture - Preliminary Blood 03/14/23 01:06 Blood Culture - Final Blood Assessment and Plan Assessment: Postop day 7: Part I: L5-S1 ALIF with Part II: L4-S1 posteriolateral and interbody fusion. Sepsis presentation, new Hospital-acquired pneumonia Post-Op Illeus resolving Lumbar spondylolithesis Plan: -Appreciate funeral pre need consultant and team management. -Activity: Perform ROM exercises of bilateral upper and lower extremities as tolerated while patient is on vent. -Pain control: Adequate at this time -Meds: reviewed -GI ppx: senna -Maintain dennis and continue to record output every shift -DVT PPX: Heparin, currently on hold due to elevated ATTP -Hygiene: Maintain dressing clean and dry. Meticulous cleaning after BMs away from the incision site -Dispo: Clinically pending *I reviewed and discussed this case with my attending Dr. Villa, whom has reviewed this chart and films and is in agreement with assessment and plan of care as outlined above. I have personally seen and examined the patient, performed the documentation and the assessment and plan as written. Number of minutes spent on the visit: 20m.
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
[2023-03-20] MEDS: SIMETHICONE 40 MG/0.6 ML DROPS 2,000 MG/30 ML BOTTLE PO SCH ×4 (11:09→21:57)
[2023-03-20 11:56] LABS: Glucose,Whole Blood 145 mg/dL (70-110)
[2023-03-20] MEDS: LEVOTHYROXINE IVP 100 MCG/5 ML VIAL IV SCH (12:40)
[2023-03-20] MEDS: ACETAMINOPHEN IV (For NPO) 1,000 MG in EMPTY BAG 1 BAG IVPB PRN ×2 (12:57→18:21)
--- NOTE | 2023-03-20 13:45 | P.PN ---
Subjective Progress Note Date: 03/20/23 Pt was intubated and sent to the ICU last night due to worsening respiratory status. General: intubated, sedated HEENT: normocephalic, atraumatic, no tracheal deviation Respiratory: symmetric chest rise, no cyanosis, ventilator dependent CVS: perfusing all extremities, no distal gangrene, no pitting edema GI: soft, ND : no SPT, no CVAT, dennis is present Neuro: sedated Hospital course: Patient is a 67-year-old male with a PMH of hypothyroidism, hypertension, and degenerative disc disease with chronic lower back pain who was admitted for an elective lumbosacral fusion and decompression. The patient underwent a 2-stage procedure with anterior and posterior approaches on 03/13. After surgery patient developed ileus and A. fib with RVR and also found to have non-ST elevation MA. Gen. surgery and cardiology were consulted on the patient. The patient had NG tube placed for ileus and was started on Reglan 10 mg every 6 hours. Patient was having high-grade fevers and tachycardia on 03/18 was started on vancomycin, cefepime, Flagyl. Assessment: Severe sepsis with unknown source Non-ST elevation MA, type II Paroxysmal atrial fibrillation with RVR Postoperative ileus Status post lumbosacral decompression and fusion surgery Plan: Today, patient's febrile to 100, 147/59, heart rate 101, 97% on mechanical ventilation with an FiO2 of 50% CBC demonstrates leukocytosis to 12.8, hemoglobin of 11.1 Basic metabolic panel shows potassium of 3.4, BUN 22 Liver function tests show elevation of AST is 46, ALT is 22, total protein 5.3, albumin of 2.8 Chest x-ray from 03/20 is personally interpreted, shows increased pulmonary vascularity with pulmonary edema Continue vancomycin cefepime, Flagyl; appreciate ID recommendations Consideration of serotonin syndrome vs neuroleptic malignant syndrome; discontinue Reglan 10 mg IV every 6 hours, discontinue benadryl Lasix 40 mg IV once today Patient has been on IV levothyroxine, will obtain FT4 and FT3 levels, discontinue levothyroxine for now Pt is full code Objective - Vital Signs Vital signs: Vital Signs Temp 100 F H 03/20/23 12:00 Pulse 93 03/20/23 13:00 Resp 21 03/20/23 13:00 BP 136/82 03/20/23 12:30 Pulse Ox 97 03/20/23 13:00 FiO2 50 03/20/23 12:00 Intake & Output 03/19/23 03/20/23 03/20/23 18:59 06:59 18:59 Intake Total 621.738 0932.812 1312.653 Output Total 1400 1045 1250 Balance -4669.847 1710.812 62.653 Weight 102.5 kg 102.5 kg Intake: IV 60 525 KVO 60 525 Intake, IV Titration 402.864 1411.812 787.653 Amount ACETAMINOPHEN IV (For NPO 411 100 ) 1,000 mg In Empty Bag 1 bag @ 400 mls/hr IVPB Q6HR PRN Rx#:[id number] Cefepime 2 gm In Sodium 200 100 Chloride 0.9% 100 ml @ 25 mls/hr IVPB Q8HR [facility] Rx# :[id number] Diltiazem 125 mg In 125 107.5 90.833 Sodium Chloride 0.9% 100 ml @ 5 MG/HR 5 mls/hr IV .Q24H [facility] Rx#:[id number] Heparin Sod,Pork in 0.45% 244.712 257.393 0 NaCl 25,000 unit In 0.45 % NaCl 1 250ml.bag @ 9.4 UNITS/KG/HR 9.964 mls/hr IV .Q24H [facility] Rx#: [id number] Potassium Chloride 10 meq 100 In Water For Injection 1 100ml.bag @ 100 mls/hr IVPB Q1H [facility] Rx#: [id number] Potassium Chloride 10 meq 300 In Water For Injection 1 100ml.bag @ 100 mls/hr IVPB Q1HR [facility] Rx#: [id number] Potassium Chloride 10 meq 300 In Water For Injection 1 100ml.bag @ 100 mls/hr IVPB Q1HR [facility] Rx#: [id number] Vancomycin 1,750 mg In 1000 Sodium Chloride 0.9% 500 ml 500 ml @ 167 mls/hr IVPB Q12H [facility] Rx#: [id number] metroNIDAZOLE-NS PMX 500 100 mg In Saline 1 100ml.bag @ 100 mls/hr IVPB Q8HR [facility] Rx#:[id number] propofoL 1,000 mg In 48.919 196.82 Empty Bag 1 bag @ 15 MCG/ KG/MIN 9.54 mls/hr IV . [id number] [facility] Rx#:[id number] Output: Urine 1400 1045 1250 Other: Voiding Method Indwelling Catheter Indwelling Catheter ABP, PAP, CO, CI - Last Documented Arterial Blood Pressure 155/61 - Labs CBC & Chem 7: 03/20/23 05:45 08 05:45 Labs: Abnormal Lab Results - Last 24 Hours (Table) 03/19/23 03/19/23 03/19/23 Range/Units 00:00 20:30 20:30 WBC 14.0 H (3.8-10.6) k/uL RBC 4.15 L (4.30-5.90) m/uL Hgb 12.4 L (13.0-17.5) gm/dL Hct 38.3 L (39.0-53.0) % Neutrophils # 12.3 H (1.3-7.7) k/uL Lymphocytes # 0.5 L (1.0-4.8) k/uL APTT (22.0-30.0) sec D-Dimer (<0.60) mg/L FEU ABG pH (7.35-7.45) ABG pCO2 (35-45) mmHg ABG pO2 (83-108) mmHg ABG Total CO2 (19-24) mmol/L ABG O2 Saturation (94-97) % Potassium 3.1 L (3.5-5.1) mmol/L Chloride 108 H (98-107) mmol/L BUN 22 H (9-20) mg/dL Glucose 115 H (74-99) mg/dL POC Glucose (mg/dL) (70-110) mg/dL Calcium 7.8 L (8.4-10.2) mg/dL Magnesium (1.6-2.3) mg/dL Total Bilirubin 1.4 H (0.2-1.3) mg/dL Delta Bilirubin (0.0-0.2) mg/dL Lactate Dehydrogenase (120-246) U/L Creatine Kinase (55-170) U/L C-Reactive Protein (<1.0) mg/dL Total Protein 5.8 L (6.3-8.2) g/dL Albumin 3.3 L (3.5-5.0) g/dL Urine Protein Trace H (Negative) Urine Glucose (UA) Trace H (Negative) Urine Ketones 2+ H (Negative) Urine Blood Moderate H (Negative) Urine RBC 50 H (0-5) /hpf Amorphous Sediment Occasional H (None) /hpf Urine Bacteria Rare H (None) /hpf Urine Mucus Occasional H (None) /hpf 03/19/23 03/19/23 03/19/23 Range/Units 20:59 21:11 21:56 WBC (3.8-10.6) k/uL RBC (4.30-5.90) m/uL Hgb (13.0-17.5) gm/dL Hct (39.0-53.0) % Neutrophils # (1.3-7.7) k/uL Lymphocytes # (1.0-4.8) k/uL APTT (22.0-30.0) sec D-Dimer 1.27 H (<0.60) mg/L FEU ABG pH 7.50 H (7.35-7.45) ABG pCO2 32 L (35-45) mmHg ABG pO2 67 L (83-108) mmHg ABG Total CO2 26 H (19-24) mmol/L ABG O2 Saturation 93.7 L (94-97) % Potassium (3.5-5.1) mmol/L Chloride (98-107) mmol/L BUN (9-20) mg/dL Glucose (74-99) mg/dL POC Glucose (mg/dL) 131 H (70-110) mg/dL Calcium (8.4-10.2) mg/dL Magnesium (1.6-2.3) mg/dL Total Bilirubin (0.2-1.3) mg/dL Delta Bilirubin (0.0-0.2) mg/dL Lactate Dehydrogenase (120-246) U/L Creatine Kinase (55-170) U/L C-Reactive Protein (<1.0) mg/dL Total Protein (6.3-8.2) g/dL Albumin (3.5-5.0) g/dL Urine Protein (Negative) Urine Glucose (UA) (Negative) Urine Ketones (Negative) Urine Blood (Negative) Urine RBC (0-5) /hpf Amorphous Sediment (None) /hpf Urine Bacteria (None) /hpf Urine Mucus (None) /hpf 03/20/23 03/20/23 03/20/23 Range/Units 03:25 05:45 05:45 WBC 12.8 H (3.8-10.6) k/uL RBC 3.68 L (4.30-5.90) m/uL Hgb 11.1 L (13.0-17.5) gm/dL Hct 34.2 L (39.0-53.0) % Neutrophils # 11.6 H (1.3-7.7) k/uL Lymphocytes # 0.4 L (1.0-4.8) k/uL APTT (22.0-30.0) sec D-Dimer (<0.60) mg/L FEU ABG pH (7.35-7.45) ABG pCO2 (35-45) mmHg ABG pO2 231 H (83-108) mmHg ABG Total CO2 26 H (19-24) mmol/L ABG O2 Saturation 99.4 H (94-97) % Potassium 3.4 L (3.5-5.1) mmol/L Chloride 110 H (98-107) mmol/L BUN 22 H (9-20) mg/dL Glucose 134 H (74-99) mg/dL POC Glucose (mg/dL) (70-110) mg/dL Calcium 7.6 L (8.4-10.2) mg/dL Magnesium 2.4 H (1.6-2.3) mg/dL Total Bilirubin (0.2-1.3) mg/dL Delta Bilirubin 0.6 H (0.0-0.2) mg/dL Lactate Dehydrogenase 353 H (120-246) U/L Creatine Kinase 251 H (55-170) U/L C-Reactive Protein 17.6 H (<1.0) mg/dL Total Protein 5.3 L (6.3-8.2) g/dL Albumin 2.8 L (3.5-5.0) g/dL Urine Protein (Negative) Urine Glucose (UA) (Negative) Urine Ketones (Negative) Urine Blood (Negative) Urine RBC (0-5) /hpf Amorphous Sediment (None) /hpf Urine Bacteria (None) /hpf Urine Mucus (None) /hpf 03/20/23 03/20/23 03/20/23 Range/Units 05:45 05:56 11:55 WBC (3.8-10.6) k/uL RBC (4.30-5.90) m/uL Hgb (13.0-17.5) gm/dL Hct (39.0-53.0) % Neutrophils # (1.3-7.7) k/uL Lymphocytes # (1.0-4.8) k/uL APTT 146.9 H* (22.0-30.0) sec D-Dimer (<0.60) mg/L FEU ABG pH (7.35-7.45) ABG pCO2 (35-45) mmHg ABG pO2 (83-108) mmHg ABG Total CO2 (19-24) mmol/L ABG O2 Saturation (94-97) % Potassium (3.5-5.1) mmol/L Chloride (98-107) mmol/L BUN (9-20) mg/dL Glucose (74-99) mg/dL POC Glucose (mg/dL) 132 H 145 H (70-110) mg/dL Calcium (8.4-10.2) mg/dL Magnesium (1.6-2.3) mg/dL Total Bilirubin (0.2-1.3) mg/dL Delta Bilirubin (0.0-0.2) mg/dL Lactate Dehydrogenase (120-246) U/L Creatine Kinase (55-170) U/L C-Reactive Protein (<1.0) mg/dL Total Protein (6.3-8.2) g/dL Albumin (3.5-5.0) g/dL Urine Protein (Negative) Urine Glucose (UA) (Negative) Urine Ketones (Negative) Urine Blood (Negative) Urine RBC (0-5) /hpf Amorphous Sediment (None) /hpf Urine Bacteria (None) /hpf Urine Mucus (None) /hpf Microbiology - Last 24 Hours (Table) 03/18/23 15:14 Blood Culture - Preliminary Blood 03/18/23 15:06 Blood Culture - Preliminary Blood 03/14/23 01:06 Blood Culture - Final Blood
--- NOTE | 2023-03-20 15:51 | P.PN ---
Subjective Progress Note Date: 03/20/23 Principal diagnosis: Postop fever Patient is a 67-year-old male electively admitted to the hospital 03/13/2023 in this patient who is s/p anterior lumbar interbody fusion L5-S1 insertion of interbody device with anterior approach patient did develop postop ileus and did have a new fever prompting infection disease consultation. Patient did have a worsening of his respiratory distress requiring transfer to the ICU and the patient was intubated morning of 03/20/2023 on today's evaluation that is 03/20/2023, patient fever pattern has improved and did have a low-grade fever 100F today, patient is currently intubated on the vent and FiO2 is at 50% and no significant purulent secretions through the ET, diarrhea or any other changes reported by the nursing staff Patient did have a hemoglobin of 11.1 white count is 12.8, the patient creatinine is 1.11, chest x-ray with pulmonary vascular congestion CT abdominal pelvis did show some inflammatory changes to the left groin area with tiny air Objective - Vital Signs Vital signs: Vital Signs Temp 99.6 F 03/20/23 04:30 Pulse 87 03/20/23 08:18 Resp 20 03/20/23 07:00 BP 121/78 03/20/23 07:00 Pulse Ox 96 03/20/23 07:00 FiO2 50 03/20/23 07:45 Intake & Output 03/19/23 03/20/23 03/20/23 18:59 06:59 18:59 Intake Total 343.317 0837.812 106.82 Output Total 1400 1045 75 Balance -2557.185 1142.812 31.82 Weight 102.5 kg Intake: IV 60 10 KVO 60 10 Intake, IV Titration 170.244 2816.812 96.82 Amount ACETAMINOPHEN IV (For NPO 411 ) 1,000 mg In Empty Bag 1 bag @ 400 mls/hr IVPB Q6HR PRN Rx#:[id number] Cefepime 2 gm In Sodium 200 Chloride 0.9% 100 ml @ 25 mls/hr IVPB Q8HR [facility] Rx# :[id number] Diltiazem 125 mg In 125 107.5 Sodium Chloride 0.9% 100 ml @ 5 MG/HR 5 mls/hr IV .Q24H [facility] Rx#:[id number] Heparin Sod,Pork in 0.45% 244.712 257.393 0 NaCl 25,000 unit In 0.45 % NaCl 1 250ml.bag @ 9.4 UNITS/KG/HR 9.964 mls/hr IV .Q24H [facility] Rx#: [id number] Potassium Chloride 10 meq 100 In Water For Injection 1 100ml.bag @ 100 mls/hr IVPB Q1H [facility] Rx#: [id number] Potassium Chloride 10 meq 300 In Water For Injection 1 100ml.bag @ 100 mls/hr IVPB Q1HR [facility] Rx#: [id number] Vancomycin 1,750 mg In 1000 Sodium Chloride 0.9% 500 ml 500 ml @ 167 mls/hr IVPB Q12H [facility] Rx#: [id number] metroNIDAZOLE-NS PMX 500 100 mg In Saline 1 100ml.bag @ 100 mls/hr IVPB Q8HR [facility] Rx#:[id number] propofoL 1,000 mg In 48.919 96.82 Empty Bag 1 bag @ 15 MCG/ KG/MIN 9.54 mls/hr IV . [id number] [facility] Rx#:[id number] Output: Urine 1400 1045 75 Other: Voiding Method Indwelling Catheter Indwelling Catheter ABP, PAP, CO, CI - Last Documented Arterial Blood Pressure 134/57 - Exam GENERAL DESCRIPTION: An elderly male intubated on the vent RESPIRATORY SYSTEM: Unlabored breathing , decreased breath sounds at bases HEART: S1 S2 regular rate and rhythm , ABDOMEN: Soft , no tenderness EXTREMITIES: No edema feet - Labs CBC & Chem 7: 03/20/23 05:45 03/20/23 05:45 Labs: Abnormal Lab Results - Last 24 Hours (Table) 03/19/23 03/19/23 03/19/23 Range/Units 00:00 10:50 20:30 WBC 14.0 H (3.8-10.6) k/uL RBC 4.15 L (4.30-5.90) m/uL Hgb 12.4 L (13.0-17.5) gm/dL Hct 38.3 L (39.0-53.0) % Neutrophils # 12.3 H (1.3-7.7) k/uL Lymphocytes # 0.5 L (1.0-4.8) k/uL APTT (22.0-30.0) sec D-Dimer (<0.60) mg/L FEU ABG pH (7.35-7.45) ABG pCO2 (35-45) mmHg ABG pO2 (83-108) mmHg ABG Total CO2 (19-24) mmol/L ABG O2 Saturation (94-97) % Potassium 2.8 L (3.5-5.1) mmol/L Chloride (98-107) mmol/L BUN 23 H (9-20) mg/dL Glucose 132 H (74-99) mg/dL POC Glucose (mg/dL) (70-110) mg/dL Calcium 8.2 L (8.4-10.2) mg/dL Magnesium (1.6-2.3) mg/dL Total Bilirubin (0.2-1.3) mg/dL Delta Bilirubin 0.8 H (0.0-0.2) mg/dL AST 73 H (17-59) U/L Lactate Dehydrogenase 315 H (120-246) U/L Creatine Kinase 419 H (55-170) U/L C-Reactive Protein 15.8 H (<1.0) mg/dL Total Protein 6.0 L (6.3-8.2) g/dL Albumin 3.2 L (3.5-5.0) g/dL Free T3 pg/mL 2.1 L (2.8-5.3) pg/ml Urine Protein Trace H (Negative) Urine Glucose (UA) Trace H (Negative) Urine Ketones 2+ H (Negative) Urine Blood Moderate H (Negative) Urine RBC 50 H (0-5) /hpf Amorphous Sediment Occasional H (None) /hpf Urine Bacteria Rare H (None) /hpf Urine Mucus Occasional H (None) /hpf 03/19/23 03/19/23 03/19/23 Range/Units 20:30 20:59 21:11 WBC (3.8-10.6) k/uL RBC (4.30-5.90) m/uL Hgb (13.0-17.5) gm/dL Hct (39.0-53.0) % Neutrophils # (1.3-7.7) k/uL Lymphocytes # (1.0-4.8) k/uL APTT (22.0-30.0) sec D-Dimer (<0.60) mg/L FEU ABG pH 7.50 H (7.35-7.45) ABG pCO2 32 L (35-45) mmHg ABG pO2 67 L (83-108) mmHg ABG Total CO2 26 H (19-24) mmol/L ABG O2 Saturation 93.7 L (94-97) % Potassium 3.1 L (3.5-5.1) mmol/L Chloride 108 H (98-107) mmol/L BUN 22 H (9-20) mg/dL Glucose 115 H (74-99) mg/dL POC Glucose (mg/dL) 131 H (70-110) mg/dL Calcium 7.8 L (8.4-10.2) mg/dL Magnesium (1.6-2.3) mg/dL Total Bilirubin 1.4 H (0.2-1.3) mg/dL Delta Bilirubin (0.0-0.2) mg/dL AST (17-59) U/L Lactate Dehydrogenase (120-246) U/L Creatine Kinase (55-170) U/L C-Reactive Protein (<1.0) mg/dL Total Protein 5.8 L (6.3-8.2) g/dL Albumin 3.3 L (3.5-5.0) g/dL Free T3 pg/mL (2.8-5.3) pg/ml Urine Protein (Negative) Urine Glucose (UA) (Negative) Urine Ketones (Negative) Urine Blood (Negative) Urine RBC (0-5) /hpf Amorphous Sediment (None) /hpf Urine Bacteria (None) /hpf Urine Mucus (None) /hpf 03/19/23 03/20/23 03/20/23 Range/Units 21:56 03:25 05:45 WBC 12.8 H (3.8-10.6) k/uL RBC 3.68 L (4.30-5.90) m/uL Hgb 11.1 L (13.0-17.5) gm/dL Hct 34.2 L (39.0-53.0) % Neutrophils # 11.6 H (1.3-7.7) k/uL Lymphocytes # 0.4 L (1.0-4.8) k/uL APTT (22.0-30.0) sec D-Dimer 1.27 H (<0.60) mg/L FEU ABG pH (7.35-7.45) ABG pCO2 (35-45) mmHg ABG pO2 231 H (83-108) mmHg ABG Total CO2 26 H (19-24) mmol/L ABG O2 Saturation 99.4 H (94-97) % Potassium (3.5-5.1) mmol/L Chloride (98-107) mmol/L BUN (9-20) mg/dL Glucose (74-99) mg/dL POC Glucose (mg/dL) (70-110) mg/dL Calcium (8.4-10.2) mg/dL Magnesium (1.6-2.3) mg/dL Total Bilirubin (0.2-1.3) mg/dL Delta Bilirubin (0.0-0.2) mg/dL AST (17-59) U/L Lactate Dehydrogenase (120-246) U/L Creatine Kinase (55-170) U/L C-Reactive Protein (<1.0) mg/dL Total Protein (6.3-8.2) g/dL Albumin (3.5-5.0) g/dL Free T3 pg/mL (2.8-5.3) pg/ml Urine Protein (Negative) Urine Glucose (UA) (Negative) Urine Ketones (Negative) Urine Blood (Negative) Urine RBC (0-5) /hpf Amorphous Sediment (None) /hpf Urine Bacteria (None) /hpf Urine Mucus (None) /hpf 03/20/23 03/20/23 03/20/23 Range/Units 05:45 05:45 05:56 WBC (3.8-10.6) k/uL RBC (4.30-5.90) m/uL Hgb (13.0-17.5) gm/dL Hct (39.0-53.0) % Neutrophils # (1.3-7.7) k/uL Lymphocytes # (1.0-4.8) k/uL APTT 146.9 H* (22.0-30.0) sec D-Dimer (<0.60) mg/L FEU ABG pH (7.35-7.45) ABG pCO2 (35-45) mmHg ABG pO2 (83-108) mmHg ABG Total CO2 (19-24) mmol/L ABG O2 Saturation (94-97) % Potassium 3.4 L (3.5-5.1) mmol/L Chloride 110 H (98-107) mmol/L BUN 22 H (9-20) mg/dL Glucose 134 H (74-99) mg/dL POC Glucose (mg/dL) 132 H (70-110) mg/dL Calcium 7.6 L (8.4-10.2) mg/dL Magnesium 2.4 H (1.6-2.3) mg/dL Total Bilirubin (0.2-1.3) mg/dL Delta Bilirubin 0.6 H (0.0-0.2) mg/dL AST (17-59) U/L Lactate Dehydrogenase 353 H (120-246) U/L Creatine Kinase 251 H (55-170) U/L C-Reactive Protein 17.6 H (<1.0) mg/dL Total Protein 5.3 L (6.3-8.2) g/dL Albumin 2.8 L (3.5-5.0) g/dL Free T3 pg/mL (2.8-5.3) pg/ml Urine Protein (Negative) Urine Glucose (UA) (Negative) Urine Ketones (Negative) Urine Blood (Negative) Urine RBC (0-5) /hpf Amorphous Sediment (None) /hpf Urine Bacteria (None) /hpf Urine Mucus (None) /hpf Microbiology - Last 24 Hours (Table) 03/18/23 15:14 Blood Culture - Preliminary Blood 03/18/23 15:06 Blood Culture - Preliminary Blood 03/14/23 01:06 Blood Culture - Final Blood Assessment and Plan (1) Sepsis Current Visit: Yes Status: Acute Code(s): A41.9 - SEPSIS, UNSPECIFIED ORGANISM SNOMED Code(s): 04530878 Plan: 1patient with a postop fever in this patient with extensive surgery requiring anterior lumbar interbody fusion L5-S1 and insertion of interbody device developing a postop ileus now low-grade fever and tachycardia possible abdominal source however no significant tenderness was noticed on abdominal Examination,, patient did have a negative UA chest x-ray did shows mild strandy atelectasis lower lungs patient did have a CT abdominal pelvis this morning which is currently pending 2-blood culture currently pending CRP is elevated and procalcitonin is normal at 0.09 3-patient fever source possible abdominal with recent surgery versus neuroleptic malignant syndrome, the patient Reglan has been discontinued cultures are curre ntly pending. Continue the patient on cefepime Flagyl and vancomycin while waiting for the culture finalized and monitor clinical course closely Dictation was produced using [employer] dictation software. please excuse any grammatical, word or spelling errors. Time with Patient: Less than 30
[2023-03-20] MEDS ORDERED: VANCOMYCIN TROUGH DUE 1 EACH MISC MISCELLANE ONE (17:00)
[2023-03-20 17:49] LABS: Glucose,Whole Blood 202 mg/dL (70-110)
[2023-03-20] MEDS: POTASSIUM CHLORIDE 20 MEQ in WATER FOR INJECTION 1 100ML.BAG IVPB SCH ×2 (18:13→21:55)
[2023-03-20 23:59] LABS: Glucose,Whole Blood 162 mg/dL (70-110)
[2023-03-21] MEDS: methylPREDNISolone SOD SUCCI 40 MG/ML 1 ML VIAL IV SCH ×3 (00:46→15:13)
[2023-03-21] MEDS: metroNIDAZOLE-NS PMX 500 MG in SALINE 1 100ML.BAG IVPB SCH ×3 (00:46→15:12)
[2023-03-21] MEDS: METOPROLOL TARTRATE 5 MG/5 ML VIAL IVP SCH ×4 (00:46→18:16)
[2023-03-21] MEDS: CEFEPIME 2 GM in SODIUM CHLORIDE 0.9% 100 ML IVPB SCH ×3 (00:47→15:13)
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
[2023-03-21] MEDS: POTASSIUM CHLORIDE 20 MEQ in WATER FOR INJECTION 1 100ML.BAG IVPB SCH ×2 (02:47→05:51)
[2023-03-21 04:54] LABS: Basophils % (A) 0 %; Eosinophils % (A) 0 %; HGB 10.6 gm/dL (13.0-17.5); Hypochromasia Slight; Lymphocytes # (A) 0.3 k/uL (1.0-4.8); Lymphocytes % (A) 2 %; MCH 30.9 pg (25.0-35.0); MCHC 33.3 g/dL (31.0-37.0); MCV 92.8 fL (80.0-100.0); Mean Platelet Volume 8.9; Monocytes # (A) 0.3 k/uL (0-1.0); Monocytes % (A) 2 %; Neutrophils # (A) 11.7 k/uL (1.3-7.7); Neutrophils % (A) 94 %; Platelet Count 219 k/uL (150-450); RBC 3.44 m/uL (4.30-5.90); RDW 15.3 % (11.5-15.5); WBC 12.4 k/uL (3.8-10.6)
[2023-03-21 05:23] LABS: African American GFR (CKD) 77 (>60 ml/min/1.73 sqM); Blood Urea Nitrogen 30 mg/dL (9-20); Calcium 7.1 mg/dL (8.4-10.2); Chloride 111 mmol/L (98-107); Glucose 171 mg/dL (74-99); Non-African American GFR(CKD) 67 (>60 ml/min/1.73 sqM); Potassium 3.5 mmol/L (3.5-5.1); Sodium 144 mmol/L (137-145)
[2023-03-21 05:24] LABS: Anion Gap 8 mmol/L; Carbon Dioxide 25 mmol/L (22-30)
[2023-03-21 05:45] LABS: ABG Base Excess 2.2 mmol/L; ABG HCO3 26 mmol/L (21-25); ABG Oxygen Saturation 97.7 % (94-97); ABG PCO2 36 mmHg (35-45); ABG PH 7.46 (7.35-7.45); ABG PO2 100 mmHg (83-108); ABG TCO2 27 mmol/L (19-24)
[2023-03-21 05:48] LABS: Allen Test Performed? no
[2023-03-21] MEDS: VANCOMYCIN 1,750 MG in SODIUM CHLORIDE 0.9% 500 ML 500 ML IVPB SCH ×2 (05:52→18:16)
--- NOTE | 2023-03-21 06:58 | XR ---
EXAMINATION TYPE: XR chest 1V portable DATE OF EXAM: 03/21/2023 COMPARISON: 03/20/2023 HISTORY: SOB, Follow Up FINDINGS: Indwelling tubes and catheters are unchanged. Perihilar infiltrates with overall significant interval improvement. Stable appearance of the cardio-mediastinal structures at this time. IMPRESSION: 1. Perihilar infiltrates with overall significant interval improvement.
[2023-03-21 07:11] LABS: Glucose,Whole Blood 163 mg/dL (70-110)
[2023-03-21] MEDS: DILTIAZEM 125 MG in SODIUM CHLORIDE 0.9% 100 ML IV SCH (07:38)
[2023-03-21] MEDS: IPRATROPIUM-ALBUTEROL 3 ML NEB INHALATION PRN ×3 (07:40→15:27)
[2023-03-21] MEDS: ASPIRIN 81 MG PO SCH (08:16)
[2023-03-21] MEDS: GABAPENTIN 300 MG CAP PO SCH ×3 (08:16→20:46)
[2023-03-21] MEDS: LEVOTHYROXINE IVP 100 MCG/5 ML VIAL IV SCH (08:26)
[2023-03-21] MEDS: CHLORHEXIDINE GLUCONATE 15 ML CUP MUCOUS MEM SCH ×2 (08:27→21:22)
[2023-03-21] MEDS: PANTOPRAZOLE 40 MG/10 ML VIAL IVP SCH (08:27)
[2023-03-21] MEDS: SIMETHICONE 40 MG/0.6 ML DROPS 2,000 MG/30 ML BOTTLE PO SCH ×4 (08:28→21:21)
--- NOTE | 2023-03-21 09:31 | P.PN ---
Subjective Progress Note Date: 03/21/23 Principal diagnosis: Acute hypoxic respiratory failure, abdominal sepsis, pneumonia This is a 67-year-old white male, known to have history of lymphoma with stem cell transplant, initially admitted on 03/2023. Patient was admitted with lower extremities numbness and low back pain, underwent anterior retroperitoneal exposure performed by Dr. beckford,, he also underwent anterior lumbar interbody fusion L5-S1 insertion of interbody device, posterior lateral and interbody fusi on L4-L5, posterior lateral instrumented fusion L5-S1, laminoforaminotomy for decompression and cage placement L4-L5, use of From[employer] navigation for screw placement. His immediate postoperative course was uneventful, on 03/15/2023, patient was seen by cardiology for him than as stated the elevated myocardial infarction and he was seen by many other consultants including general surgery for small bowel obstruction/ileus. Cardiology recommended heparin, and general surgery recommended treatment with the Reglan and simethicone. Over the last 1 week, patient has been gradually getting worse, and he has been developing over the last 2 days worsening shortness of breath. Patient was placed on multiple antibiotics, broad-spectrum antibiotics after he was seen by infectious disease on 03/18/2023, patient was treated for presumptive abdominal sepsis and possible pneumonia. Cultures have been negative/mostly blood cultures and no other cultures were sent. Patient has been receiving cefepime, vancomycin, and Flagyl. Chest x-ray on 03/18/2023 showed minimal basilar atelectasis is no clear- cut evidence of infiltrate however chest x-ray on 03/19/2023 showed infiltrates involving the left lower lobe, left midlung, and the right lower lobe. Clearly the patient developed significant airspace disease while inpatient. While on the medical floor, patient was complaining of abdominal pain and distention, CT abdomen done yesterday showed inflammatory changes in the left lower quadrant extending towards the inguinal region and small tiny amount of free air which was evaluated by general surgery and felt this is most likely related to his recent retroperitoneal approach/surgery. Yesterday I was notified about this patient having worsening shortness of breath, hypoxia, tachycardia, and hypert ension. I recommended transferring the patient to the ICU and a few hours after he was in the ICU, he continued to do poorly early this morning the patient had to be intubated and placed on mechanical ventilation. He is now on tidal volume of 500 assist control rate 20 FiO2 50% and PEEP of 5. ABG post intubation showed a pO2 of 231 pCO2 42 pH of 7.38. Hence FiO2 was cut down to 50%. WBC count is 12.8 hemoglobin is 11.1, basic metabolic profile is normal except for potassium of 3.4 BUN is 22 creatinine 1.11. Chest x-ray clearly shows bilateral air space disease consistent with pneumonia or possibly ARDS patient is now on propofol at 45 mcg/kg/m his IV fluid is a 100 mL an hour in the form of 0.9 normal saline, his also on Cardizem drip. Patient was reevaluated today on 03/21/2023, remains in the ICU intubated and mechanically ventilated. He is on assist control rate of 20 tidal volume 500 FiO2 50% and PEEP of 5. His ABG showed a pO2 of 100 pCO2 36 pH of 7.46, FiO2 was cut down to 45%. Patient remains on Cardizem drip at 10 mg per hour and I cut it down to 5 he is on propofol at 45 mcg/kg/m he is also on heparin as per cardiology. Antibiotics moreno patient is receiving vancomycin and Flagyl. TPN to be started today, and again I will cut down his Cardizem to 5 mg per hour. On lower sedation, the patient seems to be comprehending, and he follows simple instructions. Chest x-ray continues to show significant infiltrate in the left lower lobe and right lower lobe, hence I don't believe the patient is quite ready for weaning and extubation at this point in time. WBC count is 12.4 hemoglobin is 10.6, PTT is 88. Electronic for normal renal profile is normal blood sugar is 163 Objective - Vital Signs Vital signs: Vital Signs Temp 99.3 F 03/21/23 08:00 Pulse 83 03/21/23 09:00 Resp 20 03/21/23 09:00 BP 119/74 03/21/23 07:00 Pulse Ox 98 03/21/23 09:00 FiO2 50 03/21/23 08:00 Intake & Output 03/20/23 03/21/23 03/21/23 18:59 06:59 18:59 Intake Total 3038.218 1007.774 203.667 Output Total 2485 1105 290 Balance 553.218 -97.226 -86.333 Weight 102.5 kg 104.8 kg Intake: IV 1086 220 195 Cefepime 2 gm In Sodium 25 Chloride 0.9% 100 ml @ 25 mls/hr IVPB Q8HR [facility] Rx# :[id number] KVO 1086 220 70 metroNIDAZOLE-NS PMX 500 100 mg In Saline 1 100ml.bag @ 100 mls/hr IVPB Q8HR [facility] Rx#:[id number] Intake, IV Titration 1952.218 787.774 8.667 Amount ACETAMINOPHEN IV (For NPO 200 ) 1,000 mg In Empty Bag 1 bag @ 400 mls/hr IVPB Q6HR [facility] Rx#:[id number] Cefepime 2 gm In Sodium 200 Chloride 0.9% 100 ml @ 25 mls/hr IVPB Q8HR [facility] Rx# :[id number] Diltiazem 125 mg In 90.833 125 8.667 Sodium Chloride 0.9% 100 ml @ 5 MG/HR 5 mls/hr IV .Q24H [facility] Rx#:[id number] Heparin Sod,Pork in 0.45% 0 373.575 NaCl 25,000 unit In 0.45 % NaCl 1 250ml.bag @ 9.4 UNITS/KG/HR 9.964 mls/hr IV .Q24H [facility] Rx#: [id number] Potassium Chloride 10 meq 400 In Water For Injection 1 100ml.bag @ 100 mls/hr IVPB Q1HR [facility] Rx#: [id number] Potassium Chloride 20 meq 100 In Water For Injection 1 100ml.bag @ 50 mls/hr IVPB Q2H [facility] Rx#: [id number] Vancomycin 1,750 mg In 500 Sodium Chloride 0.9% 500 ml 500 ml @ 167 mls/hr IVPB Q12H [facility] Rx#: [id number] metroNIDAZOLE-NS PMX 500 100 mg In Saline 1 100ml.bag @ 100 mls/hr IVPB Q8HR [facility] Rx#:[id number] propofoL 1,000 mg In 361.385 289.199 Empty Bag 1 bag @ 15 MCG/ KG/MIN 9.54 mls/hr IV . [id number] [facility] Rx#:[id number] Output: Urine 2485 1105 290 Other: Voiding Method Indwelling Catheter Indwelling Catheter ABP, PAP, CO, CI - Last Documented Arterial Blood Pressure 135/54 - Exam Physical Exam: Revealed a 67-year-old white male intubated mechanically ventilated on propofol, 45 mcg/kg/m, in no distress. Head: Atraumatic, normocephalic, endotracheal tube and nasogastric tube intact HEENT:[Neck is supple.] [No neck masses.] [No thyromegaly.] [No JVD.] MediPort noted in the right subclavian area. Seems to be intact Chest: [Symmetrical chest expansion crackles at the bases no rhonchi and no wheezes Cardiac Exam: [Normal S1 and S2, no S3 gallop, no murmur.] Abdomen: [Soft, nontender, no megaly, no rebound, no guarding, normal bowel sounds.] Extremities: [No clubbing, 1+ bipedal edema, no cyanosis.] Neurological Exam: Sedated, could not be assessed on propofol Psychiatric: Could not assess - Labs CBC & Chem 7: 03/21/23 04:30 03/21/23 04:30 Labs: Abnormal Lab Results - Last 24 Hours (Table) 03/20/23 03/20/23 03/20/23 Range/Units 11:55 12:52 16:55 WBC (3.8-10.6) k/uL RBC (4.30-5.90) m/uL Hgb (13.0-17.5) gm/dL Hct (39.0-53.0) % Neutrophils # (1.3-7.7) k/uL Lymphocytes # (1.0-4.8) k/uL APTT 63.2 H (22.0-30.0) sec ABG pH (7.35-7.45) ABG HCO3 (21-25) mmol/L ABG Total CO2 (19-24) mmol/L ABG O2 Saturation (94-97) % Potassium 3.2 L (3.5-5.1) mmol/L Chloride (98-107) mmol/L BUN (9-20) mg/dL Glucose (74-99) mg/dL POC Glucose (mg/dL) 145 H (70-110) mg/dL Calcium (8.4-10.2) mg/dL 03/20/23 03/20/23 03/21/23 Range/Units 17:47 23:58 01:11 WBC (3.8-10.6) k/uL RBC (4.30-5.90) m/uL Hgb (13.0-17.5) gm/dL Hct (39.0-53.0) % Neutrophils # (1.3-7.7) k/uL Lymphocytes # (1.0-4.8) k/uL APTT (22.0-30.0) sec ABG pH (7.35-7.45) ABG HCO3 (21-25) mmol/L ABG Total CO2 (19-24) mmol/L ABG O2 Saturation (94-97) % Potassium 3.3 L (3.5-5.1) mmol/L Chloride (98-107) mmol/L BUN (9-20) mg/dL Glucose (74-99) mg/dL POC Glucose (mg/dL) 202 H 162 H (70-110) mg/dL Calcium (8.4-10.2) mg/dL 03/21/23 03/21/23 03/21/23 Range/Units 04:30 04:30 04:30 WBC 12.4 H (3.8-10.6) k/uL RBC 3.44 L (4.30-5.90) m/uL Hgb 10.6 L (13.0-17.5) gm/dL Hct 32.0 L (39.0-53.0) % Neutrophils # 11.7 H (1.3-7.7) k/uL Lymphocytes # 0.3 L (1.0-4.8) k/uL APTT 88.7 H (22.0-30.0) sec ABG pH (7.35-7.45) ABG HCO3 (21-25) mmol/L ABG Total CO2 (19-24) mmol/L ABG O2 Saturation (94-97) % Potassium (3.5-5.1) mmol/L Chloride 111 H (98-107) mmol/L BUN 30 H (9-20) mg/dL Glucose 171 H (74-99) mg/dL POC Glucose (mg/dL) (70-110) mg/dL Calcium 7.1 L (8.4-10.2) mg/dL 03/21/23 03/21/23 Range/Units 05:44 07:09 WBC (3.8-10.6) k/uL RBC (4.30-5.90) m/uL Hgb (13.0-17.5) gm/dL Hct (39.0-53.0) % Neutrophils # (1.3-7.7) k/uL Lymphocytes # (1.0-4.8) k/uL APTT (22.0-30.0) sec ABG pH 7.46 H (7.35-7.45) ABG HCO3 26 H (21-25) mmol/L ABG Total CO2 27 H (19-24) mmol/L ABG O2 Saturation 97.7 H (94-97) % Potassium (3.5-5.1) mmol/L Chloride (98-107) mmol/L BUN (9-20) mg/dL Glucose (74-99) mg/dL POC Glucose (mg/dL) 163 H (70-110) mg/dL Calcium (8.4-10.2) mg/dL Microbiology - Last 24 Hours (Table) 03/18/23 15:14 Blood Culture - Preliminary Blood 03/18/23 15:06 Blood Culture - Preliminary Blood Assessment and Plan Assessment: Impression: Acute hypoxic respiratory failure secondary to pneumonia, hospital-acquired pneumonia, possibly ARDS. Acute abdominal pain with small bowel obstruction/ileus, being addressed by surgery on the case, did not feel that the patient had a surgical abdomen. Acute sepsis, sources could be abdomen most likely and also the possibility of lung/pneumonia. Possible ARDS requiring intubation and mechanical ventilation from abdominal sepsis. Recent elective lumbosacral fusion and decompression 03/2023 with complicated postoperative course. Acute metabolic encephalopathy History of lymphoma and previous stem cell transplant. Being followed by oncology. Acute non-ST elevation myocardial infarction Paroxysmal atrial fibrillation Recommendation: Continue ventilatory support, not quite ready for weaning trial today. Start TPN for nutritional support GI and DVT prophylaxis Continue heparin as per cardiology Continue Cardizem as per cardiology however the patient is in sinus rhythm, and I will cut down the dose to 5 mg per hour Continue antibiotics/broad-spectrum, patient is being followed by infectious disease Continue methylprednisolone. Titrate FiO2 down accordingly patient is down to 45% Continue close monitoring in the ICU Patient is critically ill, prognosis is guarded. We'll continue to follow. Critical care time is over 35 minutes Time with Patient: Greater than 30
--- NOTE | 2023-03-21 09:35 | P.PN ---
Subjective Progress Note Date: 03/21/23 Principal diagnosis: Ileus He remains on the ventilator. He is however arousable. Denies pain when asked. White blood cell count 12.4 urine T-max 101.5. No bowel function. Objective - Vital Signs Vital signs: Vital Signs Temp 99.3 F 03/21/23 08:00 Pulse 83 03/21/23 09:00 Resp 20 03/21/23 09:00 BP 119/74 03/21/23 07:00 Pulse Ox 98 03/21/23 09:00 FiO2 50 03/21/23 08:00 Intake & Output 03/20/23 03/21/23 03/21/23 18:59 06:59 18:59 Intake Total 3038.218 1007.774 203.667 Output Total 2485 1105 290 Balance 553.218 -97.226 -86.333 Weight 102.5 kg 104.8 kg Intake: IV 1086 220 195 Cefepime 2 gm In Sodium 25 Chloride 0.9% 100 ml @ 25 mls/hr IVPB Q8HR [facility] Rx# :[id number] KVO 1086 220 70 metroNIDAZOLE-NS PMX 500 100 mg In Saline 1 100ml.bag @ 100 mls/hr IVPB Q8HR [facility] Rx#:[id number] Intake, IV Titration 1952.218 787.774 8.667 Amount ACETAMINOPHEN IV (For NPO 200 ) 1,000 mg In Empty Bag 1 bag @ 400 mls/hr IVPB Q6HR [facility] Rx#:[id number] Cefepime 2 gm In Sodium 200 Chloride 0.9% 100 ml @ 25 mls/hr IVPB Q8HR [facility] Rx# :[id number] Diltiazem 125 mg In 90.833 125 8.667 Sodium Chloride 0.9% 100 ml @ 5 MG/HR 5 mls/hr IV .Q24H [facility] Rx#:[id number] Heparin Sod,Pork in 0.45% 0 373.575 NaCl 25,000 unit In 0.45 % NaCl 1 250ml.bag @ 9.4 UNITS/KG/HR 9.964 mls/hr IV .Q24H [facility] Rx#: [id number] Potassium Chloride 10 meq 400 In Water For Injection 1 100ml.bag @ 100 mls/hr IVPB Q1HR [facility] Rx#: [id number] Potassium Chloride 20 meq 100 In Water For Injection 1 100ml.bag @ 50 mls/hr IVPB Q2H [facility] Rx#: [id number] Vancomycin 1,750 mg In 500 Sodium Chloride 0.9% 500 ml 500 ml @ 167 mls/hr IVPB Q12H [facility] Rx#: [id number] metroNIDAZOLE-NS PMX 500 100 mg In Saline 1 100ml.bag @ 100 mls/hr IVPB Q8HR [facility] Rx#:[id number] propofoL 1,000 mg In 361.385 289.199 Empty Bag 1 bag @ 15 MCG/ KG/MIN 9.54 mls/hr IV . [id number] [facility] Rx#:[id number] Output: Urine 2485 1105 290 Other: Voiding Method Indwelling Catheter Indwelling Catheter ABP, PAP, CO, CI - Last Documented Arterial Blood Pressure 135/54 - Exam Abdomen: Soft, nondistended, nontender - Labs CBC & Chem 7: 03/21/23 04:30 03/21/23 04:30 Labs: Abnormal Lab Results - Last 24 Hours (Table) 03/20/23 03/20/23 03/20/23 Range/Units 11:55 12:52 16:55 WBC (3.8-10.6) k/uL RBC (4.30-5.90) m/uL Hgb (13.0-17.5) gm/dL Hct (39.0-53.0) % Neutrophils # (1.3-7.7) k/uL Lymphocytes # (1.0-4.8) k/uL APTT 63.2 H (22.0-30.0) sec ABG pH (7.35-7.45) ABG HCO3 (21-25) mmol/L ABG Total CO2 (19-24) mmol/L ABG O2 Saturation (94-97) % Potassium 3.2 L (3.5-5.1) mmol/L Chloride (98-107) mmol/L BUN (9-20) mg/dL Glucose (74-99) mg/dL POC Glucose (mg/dL) 145 H (70-110) mg/dL Calcium (8.4-10.2) mg/dL 03/20/23 03/20/23 03/21/23 Range/Units 17:47 23:58 01:11 WBC (3.8-10.6) k/uL RBC (4.30-5.90) m/uL Hgb (13.0-17.5) gm/dL Hct (39.0-53.0) % Neutrophils # (1.3-7.7) k/uL Lymphocytes # (1.0-4.8) k/uL APTT (22.0-30.0) sec ABG pH (7.35-7.45) ABG HCO3 (21-25) mmol/L ABG Total CO2 (19-24) mmol/L ABG O2 Saturation (94-97) % Potassium 3.3 L (3.5-5.1) mmol/L Chloride (98-107) mmol/L BUN (9-20) mg/dL Glucose (74-99) mg/dL POC Glucose (mg/dL) 202 H 162 H (70-110) mg/dL Calcium (8.4-10.2) mg/dL 03/21/23 03/21/23 03/21/23 Range/Units 04:30 04:30 04:30 WBC 12.4 H (3.8-10.6) k/uL RBC 3.44 L (4.30-5.90) m/uL Hgb 10.6 L (13.0-17.5) gm/dL Hct 32.0 L (39.0-53.0) % Neutrophils # 11.7 H (1.3-7.7) k/uL Lymphocytes # 0.3 L (1.0-4.8) k/uL APTT 88.7 H (22.0-30.0) sec ABG pH (7.35-7.45) ABG HCO3 (21-25) mmol/L ABG Total CO2 (19-24) mmol/L ABG O2 Saturation (94-97) % Potassium (3.5-5.1) mmol/L Chloride 111 H (98-107) mmol/L BUN 30 H (9-20) mg/dL Glucose 171 H (74-99) mg/dL POC Glucose (mg/dL) (70-110) mg/dL Calcium 7.1 L (8.4-10.2) mg/dL 03/21/23 03/21/23 Range/Units 05:44 07:09 WBC (3.8-10.6) k/uL RBC (4.30-5.90) m/uL Hgb (13.0-17.5) gm/dL Hct (39.0-53.0) % Neutrophils # (1.3-7.7) k/uL Lymphocytes # (1.0-4.8) k/uL APTT (22.0-30.0) sec ABG pH 7.46 H (7.35-7.45) ABG HCO3 26 H (21-25) mmol/L ABG Total CO2 27 H (19-24) mmol/L ABG O2 Saturation 97.7 H (94-97) % Potassium (3.5-5.1) mmol/L Chloride (98-107) mmol/L BUN (9-20) mg/dL Glucose (74-99) mg/dL POC Glucose (mg/dL) 163 H (70-110) mg/dL Calcium (8.4-10.2) mg/dL Microbiology - Last 24 Hours (Table) 03/18/23 15:14 Blood Culture - Preliminary Blood 03/18/23 15:06 Blood Culture - Preliminary Blood Assessment and Plan (1) Ileus Narrative/Plan: 67-year-old male with abdominal ileus after recent anterior lumbar fusion. Patient with evidence of sepsis. Etiology unclear but does not appear to be abdominal source on recent CAT scan or on exam at this time. Continue broad- spectrum antibiotics. Possible ventilatory weaning per pulmonary. We'll follow closely. Current Visit: Yes Status: Acute Code(s): K56.7 - ILEUS, UNSPECIFIED SNOMED Code(s): 446349781
--- NOTE | 2023-03-21 10:25 | P.PN ---
Progress Note - Text Progress Note Date: 03/21/23 Diagnosis: L5-S1 grade 2 spondylolisthesis L4 S1 spondylosis lower extremity radiculopathy Subjective: Patient seen this morning in ICU still on vent. Surgical dressings are clean, dry, intact. Medicine following. No other changes at this time Objective: Patient still on vent. Surgical dressing to the anterior, lower midline abdomen is CDI, Posterior, paralumbar surgical dressings, CDI. Assessment: Postop day 8: Part I: L5-S1 ALIF with Part II: L4-S1 posteriolateral and interbody fusion. Sepsis presentation, new Hospital-acquired pneumonia Post-Op Illeus resolving Lumbar spondylolithesis Plan: Lumbar spondylolisthesis - perform range of motion exercises of bilateral upper and lower extremity is while patient is on vent. Pain medication as needed. Senna for GI prophylaxis. DVT prophylaxis recs. Maintain dressing clean, dry. Medicine following patient .We'll continue to be available as needed.
--- NOTE | 2023-03-21 11:07 | P.PN ---
Subjective Progress Note Date: 03/21/23 This is Billy Harrington NP, I'm dictating on behalf of Dr. Wagner's H&P and A&P. Patient was interviewed and examined. Patient is a 67-year-old male who is currently admitted to the hospital after undergoing elective back surgery on 03/13/2023. Postoperatively he developed an ileus and A. fib/atypical atrial flutter. 2 days ago the patient had mental status changes and was transferred to the ICU and subsequently intubated. From a cardiology standpoint the patient is maintaining sinus rhythm on IV m edications, as he cannot tolerate any oral medications at this time secondary to his ileus. GENERAL: Ill-appearing, well-nourished and in no acute distress. Intubated and sedated. NECK: Supple without JVD or thyromegaly. LUNGS: Breath sounds clear to auscultation bilaterally. Respiration equal and unlabored. No wheezes, rales or rhonchi. HEART: Regular rate and rhythm without murmurs, rubs or gallops. S1 and S2 heard. EXTREMITIES: Normal range of motion, no edema. No clubbing or cyanosis. Peripheral pulses intact and strong. VITALS: Temp 99.3, pulse 80, respirations 20, blood pressure 132/53, O2 saturation 98% on mechanical ventilation TELEMETRY: Normal sinus rhythm with a heart rate in the 70s to 90s LABS: White count 12.4, hemoglobin 10.6, sodium 144, potassium 3.5, B1 30, creatinine 1.12, calcium 7.1 IMPRESSION: 1. Status post L5 to S1 and I am and L4 to S1 posterior lateral interbody fusion 2. Postoperative ileus 3. New onset paroxysmal atrial flutter fibrillation/typical atrial flutter 4. Non-STEMI 5. Acute hypoxic respiratory failure PLAN: Continue IV cardiac medications until patient is able to tolerate oral intake. At that time IV meds can be changed to oral. Continue supportive treatment. Further recommendations based on patient's clinical course. Objective - Vital Signs Vital signs: Vital Signs Temp 99.3 F 03/21/23 08:00 Pulse 83 03/21/23 09:00 Resp 20 03/21/23 09:00 BP 119/74 03/21/23 07:00 Pulse Ox 98 03/21/23 09:00 FiO2 50 03/21/23 08:00 Intake & Output 03/20/23 03/21/23 03/21/23 18:59 06:59 18:59 Intake Total 3038.218 1007.774 203.667 Output Total 2485 1105 290 Balance 553.218 -97.226 -86.333 Weight 102.5 kg 104.8 kg Intake: IV 1086 220 195 Cefepime 2 gm In Sodium 25 Chloride 0.9% 100 ml @ 25 mls/hr IVPB Q8HR [facility] Rx# :[id number] KVO 1086 220 70 metroNIDAZOLE-NS PMX 500 100 mg In Saline 1 100ml.bag @ 100 mls/hr IVPB Q8HR [facility] Rx#:[id number] Intake, IV Titration 1952.218 787.774 8.667 Amount ACETAMINOPHEN IV (For NPO 200 ) 1,000 mg In Empty Bag 1 bag @ 400 mls/hr IVPB Q6HR [facility] Rx#:[id number] Cefepime 2 gm In Sodium 200 Chloride 0.9% 100 ml @ 25 mls/hr IVPB Q8HR [facility] Rx# :[id number] Diltiazem 125 mg In 90.833 125 8.667 Sodium Chloride 0.9% 100 ml @ 5 MG/HR 5 mls/hr IV .Q24H [facility] Rx#:[id number] Heparin Sod,Pork in 0.45% 0 373.575 NaCl 25,000 unit In 0.45 % NaCl 1 250ml.bag @ 9.4 UNITS/KG/HR 9.964 mls/hr IV .Q24H [facility] Rx#: [id number] Potassium Chloride 10 meq 400 In Water For Injection 1 100ml.bag @ 100 mls/hr IVPB Q1HR [facility] Rx#: [id number] Potassium Chloride 20 meq 100 In Water For Injection 1 100ml.bag @ 50 mls/hr IVPB Q2H [facility] Rx#: [id number] Vancomycin 1,750 mg In 500 Sodium Chloride 0.9% 500 ml 500 ml @ 167 mls/hr IVPB Q12H [facility] Rx#: [id number] metroNIDAZOLE-NS PMX 500 100 mg In Saline 1 100ml.bag @ 100 mls/hr IVPB Q8HR [facility] Rx#:[id number] propofoL 1,000 mg In 361.385 289.199 Empty Bag 1 bag @ 15 MCG/ KG/MIN 9.54 mls/hr IV . [id number] [facility] Rx#:[id number] Output: Urine 2485 1105 290 Other: Voiding Method Indwelling Catheter Indwelling Catheter ABP, PAP, CO, CI - Last Documented Arterial Blood Pressure 135/54 - Labs CBC & Chem 7: 03/21/23 04:30 03/21/23 04:30 Labs: Abnormal Lab Results - Last 24 Hours (Table) 03/20/23 03/20/23 03/20/23 Range/Units 11:55 12:52 16:55 WBC (3.8-10.6) k/uL RBC (4.30-5.90) m/uL Hgb (13.0-17.5) gm/dL Hct (39.0-53.0) % Neutrophils # (1.3-7.7) k/uL Lymphocytes # (1.0-4.8) k/uL APTT 63.2 H (22.0-30.0) sec ABG pH (7.35-7.45) ABG HCO3 (21-25) mmol/L ABG Total CO2 (19-24) mmol/L ABG O2 Saturation (94-97) % Potassium 3.2 L (3.5-5.1) mmol/L Chloride (98-107) mmol/L BUN (9-20) mg/dL Glucose (74-99) mg/dL POC Glucose (mg/dL) 145 H (70-110) mg/dL Calcium (8.4-10.2) mg/dL 03/20/23 03/20/23 03/21/23 Range/Units 17:47 23:58 01:11 WBC (3.8-10.6) k/uL RBC (4.30-5.90) m/uL Hgb (13.0-17.5) gm/dL Hct (39.0-53.0) % Neutrophils # (1.3-7.7) k/uL Lymphocytes # (1.0-4.8) k/uL APTT (22.0-30.0) sec ABG pH (7.35-7.45) ABG HCO3 (21-25) mmol/L ABG Total CO2 (19-24) mmol/L ABG O2 Saturation (94-97) % Potassium 3.3 L (3.5-5.1) mmol/L Chloride (98-107) mmol/L BUN (9-20) mg/dL Glucose (74-99) mg/dL POC Glucose (mg/dL) 202 H 162 H (70-110) mg/dL Calcium (8.4-10.2) mg/dL 03/21/23 03/21/23 03/21/23 Range/Units 04:30 04:30 04:30 WBC 12.4 H (3.8-10.6) k/uL RBC 3.44 L (4.30-5.90) m/uL Hgb 10.6 L (13.0-17.5) gm/dL Hct 32.0 L (39.0-53.0) % Neutrophils # 11.7 H (1.3-7.7) k/uL Lymphocytes # 0.3 L (1.0-4.8) k/uL APTT 88.7 H (22.0-30.0) sec ABG pH (7.35-7.45) ABG HCO3 (21-25) mmol/L ABG Total CO2 (19-24) mmol/L ABG O2 Saturation (94-97) % Potassium (3.5-5.1) mmol/L Chloride 111 H (98-107) mmol/L BUN 30 H (9-20) mg/dL Glucose 171 H (74-99) mg/dL POC Glucose (mg/dL) (70-110) mg/dL Calcium 7.1 L (8.4-10.2) mg/dL 03/21/23 03/21/23 Range/Units 05:44 07:09 WBC (3.8-10.6) k/uL RBC (4.30-5.90) m/uL Hgb (13.0-17.5) gm/dL Hct (39.0-53.0) % Neutrophils # (1.3-7.7) k/uL Lymphocytes # (1.0-4.8) k/uL APTT (22.0-30.0) sec ABG pH 7.46 H (7.35-7.45) ABG HCO3 26 H (21-25) mmol/L ABG Total CO2 27 H (19-24) mmol/L ABG O2 Saturation 97.7 H (94-97) % Potassium (3.5-5.1) mmol/L Chloride (98-107) mmol/L BUN (9-20) mg/dL Glucose (74-99) mg/dL POC Glucose (mg/dL) 163 H (70-110) mg/dL Calcium (8.4-10.2) mg/dL Microbiology - Last 24 Hours (Table) 03/18/23 15:14 Blood Culture - Preliminary Blood 03/18/23 15:06 Blood Culture - Preliminary Blood
[2023-03-21 12:03] LABS: Glucose,Whole Blood 137 mg/dL (70-110)
[2023-03-21 12:03] LABS: Magnesium 2.3 mg/dL (1.6-2.3); Phosphorus 2.4 mg/dL (2.5-4.5)
[2023-03-21] MEDS ORDERED: FUROSEMIDE 10 MG/ML 4 ML VIAL IV STA (12:21)
--- NOTE | 2023-03-21 13:16 | P.PN ---
Subjective Progress Note Date: 03/21/23 Pt has had no fevers in last 24 hours. General: intubated, sedated HEENT: normocephalic, atraumatic, no tracheal deviation Respiratory: symmetric chest rise, no cyanosis, ventilator dependent CVS: perfusing all extremities, no distal gangrene, no pitting edema GI: soft, ND : no SPT, no CVAT, dennis is present Neuro: sedated Hospital course: Patient is a 67-year-old male with a PMH of hypothyroidism, hypertension, and degenerative disc disease with chronic lower back pain who was admitted for an elective lumbosacral fusion and decompression. The patient underwent a 2-stage procedure with anterior and posterior approaches on 03/13. After surgery patient developed ileus and A. fib with RVR and also found to have non-ST elevation [place]. Gen. surgery and cardiology were consulted on the patient. The patient had NG tube placed for ileus and was started on Reglan 10 mg every 6 hours. Patient was having high-grade fevers and tachycardia on 03/18 was started on vancomycin, cefepime, Flagyl. Assessment: Severe sepsis with unknown source Non-ST elevation [place], type II Paroxysmal atrial fibrillation with RVR Postoperative ileus Status post lumbosacral decompression and fusion surgery Plan: Today, patient's febrile to 100, 147/59, heart rate 101, 97% on mechanical vent ilation with an FiO2 of 50% CBC demonstrates leukocytosis to 12.4, hemoglobin of 10.6 Basic metabolic panel shows potassium of 3.5, BUN 30 Chest x-ray from 03/21 is personally interpreted, shows improving pulmonary edema Continue vancomycin cefepime, Flagyl; appreciate ID recommendations Consideration of serotonin syndrome vs neuroleptic malignant syndrome; discontinue Reglan 10 mg IV every 6 hours, discontinue benadryl Lasix 40 mg IV once today again Patient has been on IV levothyroxine, will obtain FT4 and FT3 levels, discontinue levothyroxine for now Pt is full code Objective - Vital Signs Vital signs: Vital Signs Temp 99.8 F H 03/21/23 12:00 Pulse 79 03/21/23 13:00 Resp 22 03/21/23 13:00 BP 119/74 03/21/23 07:00 Pulse Ox 98 03/21/23 13:00 FiO2 45 03/21/23 12:00 Intake & Output 03/20/23 03/21/23 03/21/23 18:59 06:59 18:59 Intake Total 3038.218 1007.774 338.667 Output Total 2485 1105 555 Balance 553.218 -97.226 -216.333 Weight 102.5 kg 104.8 kg Intake: IV 1086 220 330 Cefepime 2 gm In Sodium 100 Chloride 0.9% 100 ml @ 25 mls/hr IVPB Q8HR [facility] Rx# :[id number] KVO 1086 220 130 metroNIDAZOLE-NS PMX 500 100 mg In Saline 1 100ml.bag @ 100 mls/hr IVPB Q8HR [facility] Rx#:[id number] Intake, IV Titration 1952.218 787.774 8.667 Amount ACETAMINOPHEN IV (For NPO 200 ) 1,000 mg In Empty Bag 1 bag @ 400 mls/hr IVPB Q6HR PRN Rx#:[id number] Cefepime 2 gm In Sodium 200 Chloride 0.9% 100 ml @ 25 mls/hr IVPB Q8HR [facility] Rx# :[id number] Diltiazem 125 mg In 90.833 125 8.667 Sodium Chloride 0.9% 100 ml @ 5 MG/HR 5 mls/hr IV .Q24H [facility] Rx#:[id number] Heparin Sod,Pork in 0.45% 0 373.575 NaCl 25,000 unit In 0.45 % NaCl 1 250ml.bag @ 9.4 UNITS/KG/HR 9.964 mls/hr IV .Q24H [facility] Rx#: [id number] Potassium Chloride 10 meq 400 In Water For Injection 1 100ml.bag @ 100 mls/hr IVPB Q1HR [facility] Rx#: [id number] Potassium Chloride 20 meq 100 In Water For Injection 1 100ml.bag @ 50 mls/hr IVPB Q2H [facility] Rx#: [id number] Vancomycin 1,750 mg In 500 Sodium Chloride 0.9% 500 ml 500 ml @ 167 mls/hr IVPB Q12H [facility] Rx#: [id number] metroNIDAZOLE-NS PMX 500 100 mg In Saline 1 100ml.bag @ 100 mls/hr IVPB Q8HR [facility] Rx#:[id number] propofoL 1,000 mg In 361.385 289.199 Empty Bag 1 bag @ 15 MCG/ KG/MIN 9.54 mls/hr IV . [id number] [facility] Rx#:[id number] Output: Urine 2485 1105 555 Other: Voiding Method Indwelling Catheter Indwelling Catheter Indwelling Catheter ABP, PAP, CO, CI - Last Documented Arterial Blood Pressure 143/58 - Labs CBC & Chem 7: 03/21/23 04:30 03/21/23 12:25 Labs: Abnormal Lab Results - Last 24 Hours (Table) 03/20/23 03/20/23 03/20/23 Range/Units 12:52 16:55 17:47 WBC (3.8-10.6) k/uL RBC (4.30-5.90) m/uL Hgb (13.0-17.5) gm/dL Hct (39.0-53.0) % Neutrophils # (1.3-7.7) k/uL Lymphocytes # (1.0-4.8) k/uL APTT 63.2 H (22.0-30.0) sec ABG pH (7.35-7.45) ABG HCO3 (21-25) mmol/L ABG Total CO2 (19-24) mmol/L ABG O2 Saturation (94-97) % Potassium 3.2 L (3.5-5.1) mmol/L Chloride (98-107) mmol/L BUN (9-20) mg/dL Glucose (74-99) mg/dL POC Glucose (mg/dL) 202 H (70-110) mg/dL Calcium (8.4-10.2) mg/dL Phosphorus (2.5-4.5) mg/dL 03/20/23 03/21/23 03/21/23 Range/Units 23:58 01:11 04:30 WBC (3.8-10.6) k/uL RBC (4.30-5.90) m/uL Hgb (13.0-17.5) gm/dL Hct (39.0-53.0) % Neutrophils # (1.3-7.7) k/uL Lymphocytes # (1.0-4.8) k/uL APTT (22.0-30.0) sec ABG pH (7.35-7.45) ABG HCO3 (21-25) mmol/L ABG Total CO2 (19-24) mmol/L ABG O2 Saturation (94-97) % Potassium 3.3 L (3.5-5.1) mmol/L Chloride 111 H (98-107) mmol/L BUN 30 H (9-20) mg/dL Glucose 171 H (74-99) mg/dL POC Glucose (mg/dL) 162 H (70-110) mg/dL Calcium 7.1 L (8.4-10.2) mg/dL Phosphorus (2.5-4.5) mg/dL 03/21/23 03/21/23 03/21/23 Range/Units 04:30 04:30 04:30 WBC 12.4 H (3.8-10.6) k/uL RBC 3.44 L (4.30-5.90) m/uL Hgb 10.6 L (13.0-17.5) gm/dL Hct 32.0 L (39.0-53.0) % Neutrophils # 11.7 H (1.3-7.7) k/uL Lymphocytes # 0.3 L (1.0-4.8) k/uL APTT 88.7 H (22.0-30.0) sec ABG pH (7.35-7.45) ABG HCO3 (21-25) mmol/L ABG Total CO2 (19-24) mmol/L ABG O2 Saturation (94-97) % Potassium (3.5-5.1) mmol/L Chloride (98-107) mmol/L BUN (9-20) mg/dL Glucose (74-99) mg/dL POC Glucose (mg/dL) (70-110) mg/dL Calcium (8.4-10.2) mg/dL Phosphorus 2.4 L (2.5-4.5) mg/dL 03/21/23 03/21/23 03/21/23 Range/Units 05:44 07:09 12:02 WBC (3.8-10.6) k/uL RBC (4.30-5.90) m/uL Hgb (13.0-17.5) gm/dL Hct (39.0-53.0) % Neutrophils # (1.3-7.7) k/uL Lymphocytes # (1.0-4.8) k/uL APTT (22.0-30.0) sec ABG pH 7.46 H (7.35-7.45) ABG HCO3 26 H (21-25) mmol/L ABG Total CO2 27 H (19-24) mmol/L ABG O2 Saturation 97.7 H (94-97) % Potassium (3.5-5.1) mmol/L Chloride (98-107) mmol/L BUN (9-20) mg/dL Glucose (74-99) mg/dL POC Glucose (mg/dL) 163 H 137 H (70-110) mg/dL Calcium (8.4-10.2) mg/dL Phosphorus (2.5-4.5) mg/dL 03/21/23 Range/Units 12:25 WBC (3.8-10.6) k/uL RBC (4.30-5.90) m/uL Hgb (13.0-17.5) gm/dL Hct (39.0-53.0) % Neutrophils # (1.3-7.7) k/uL Lymphocytes # (1.0-4.8) k/uL APTT 63.1 H (22.0-30.0) sec ABG pH (7.35-7.45) ABG HCO3 (21-25) mmol/L ABG Total CO2 (19-24) mmol/L ABG O2 Saturation (94-97) % Potassium (3.5-5.1) mmol/L Chloride (98-107) mmol/L BUN (9-20) mg/dL Glucose (74-99) mg/dL POC Glucose (mg/dL) (70-110) mg/dL Calcium (8.4-10.2) mg/dL Phosphorus (2.5-4.5) mg/dL Microbiology - Last 24 Hours (Table) 03/18/23 15:14 Blood Culture - Preliminary Blood 03/18/23 15:06 Blood Culture - Preliminary Blood
[2023-03-21] MEDS ORDERED: MVI, ADULT NO.4 WITH VIT K 10 ML, TRACE (CONC-1ML/DOSE) 1 ML in AMINO ACID 5%-D15W+LYTE... IV SCH ×3 (14:00)
[2023-03-21] MEDS: POTASSIUM CHLORIDE 10 MEQ in WATER FOR INJECTION 1 100ML.BAG IVPB SCH ×2 (15:13→18:16)
[2023-03-21 17:57] LABS: Glucose,Whole Blood 194 mg/dL (70-110)
[2023-03-21] MEDS ORDERED: DEXTROSE 50% SYRINGE 50 ML IVP PRN ×2 (19:22)
[2023-03-21 23:37] LABS: Glucose,Whole Blood 203 mg/dL (70-110)
[2023-03-22] MEDS: POTASSIUM CHLORIDE 10 MEQ in WATER FOR INJECTION 1 100ML.BAG IVPB SCH ×6 (00:36→18:26)
[2023-03-22] MEDS: methylPREDNISolone SOD SUCCI 40 MG/ML 1 ML VIAL IV SCH ×3 (00:36→16:04)
[2023-03-22] MEDS: metroNIDAZOLE-NS PMX 500 MG in SALINE 1 100ML.BAG IVPB SCH ×3 (00:36→16:02)
[2023-03-22] MEDS: METOPROLOL TARTRATE 5 MG/5 ML VIAL IVP SCH ×4 (00:36→18:25)
[2023-03-22 00:54] LABS: Glucose,Whole Blood 224 mg/dL (70-110)
[2023-03-22] MEDS: INSULIN ASPART (NovoLOG) 100 UNIT/ML VIAL SQ SCH ×4 (00:55→17:43)
[2023-03-22] MEDS: HEPARIN SOD,PORK IN 0.45% NACL 25,000 UNIT in 0.45% NACL 1 250ML.BAG IV SCH ×2 (04:19→22:16)
[2023-03-22 04:38] LABS: Basophils % (A) 0 %; Eosinophils % (A) 0 %; HCT 32.6 % (39.0-53.0); HGB 10.6 gm/dL (13.0-17.5); Hypochromasia Slight; Lymphocytes # (A) 0.3 k/uL (1.0-4.8); Lymphocytes % (A) 2 %; MCH 30.3 pg (25.0-35.0); MCHC 32.4 g/dL (31.0-37.0); MCV 93.5 fL (80.0-100.0); Mean Platelet Volume 8.6; Monocytes # (A) 0.4 k/uL (0-1.0); Monocytes % (A) 3 %; Neutrophils # (A) 13.5 k/uL (1.3-7.7); Neutrophils % (A) 94 %; Platelet Count 248 k/uL (150-450); RBC 3.49 m/uL (4.30-5.90); RDW 15.5 % (11.5-15.5); WBC 14.4 k/uL (3.8-10.6)
[2023-03-22 04:43] LABS: Ionized Calcium 4.3 mg/dL (4.5-5.3)
[2023-03-22 04:59] LABS: Magnesium 2.5 mg/dL (1.6-2.3); Phosphorus 2.9 mg/dL (2.5-4.5)
[2023-03-22 05:03] LABS: African American GFR (CKD) 80 (>60 ml/min/1.73 sqM); Anion Gap 6 mmol/L; Blood Urea Nitrogen 39 mg/dL (9-20); Calcium 7.5 mg/dL (8.4-10.2); Carbon Dioxide 23 mmol/L (22-30); Chloride 117 mmol/L (98-107); Glucose 201 mg/dL (74-99); Non-African American GFR(CKD) 69 (>60 ml/min/1.73 sqM); Potassium 3.9 mmol/L (3.5-5.1); Sodium 146 mmol/L (137-145)
[2023-03-22 05:28] LABS: Glucose,Whole Blood 194 mg/dL (70-110)
[2023-03-22 05:34] LABS: Glucose,Whole Blood 208 mg/dL (70-110)
[2023-03-22] MEDS: VANCOMYCIN 1,750 MG in SODIUM CHLORIDE 0.9% 500 ML 500 ML IVPB SCH (05:44)
[2023-03-22 05:48] LABS: ABG Base Excess 1.3 mmol/L; ABG HCO3 25 mmol/L (21-25); ABG Oxygen Saturation 98.1 % (94-97); ABG PCO2 36 mmHg (35-45); ABG PH 7.46 (7.35-7.45); ABG PO2 103 mmHg (83-108); ABG TCO2 26 mmol/L (19-24)
[2023-03-22 05:49] LABS: Allen Test Performed? no
[2023-03-22] MEDS: IPRATROPIUM-ALBUTEROL 3 ML NEB INHALATION PRN ×3 (08:01→20:12)
--- NOTE | 2023-03-22 08:21 | XR ---
EXAMINATION TYPE: XR chest 1V portable DATE OF EXAM: 03/22/2023 COMPARISON: NONE HISTORY: SOB, Follow Up FINDINGS: Indwelling tubes and catheters are unchanged. Increased density left lower lobe may reflect atelectasis and/or infiltrate. Overall no significant c hange appreciated. Stable appearance of the cardio-mediastinal structures at this time. IMPRESSION: 1. Stable portable chest. Clinical correlation and follow up until resolution is recommended.
[2023-03-22] MEDS ORDERED: CALCIUM GLUCONATE IN NACL 1 GM in SALINE 1 100ML.BAG IVPB ONE (08:30)
--- NOTE | 2023-03-22 09:40 | P.PN ---
Subjective Progress Note Date: 03/21/23 Principal diagnosis: Postop fever Patient is a 67-year-old male electively admitted to the hospital 03/13/2023 in this patient who is s/p anterior lumbar interbody fusion L5-S1 insertion of interbody device with anterior approach patient did develop postop ileus and did have a new fever prompting infection disease consultation. Patient did have a worsening of his respiratory distress requiring transfer to the ICU and the patient was intubated morning of 03/20/2023 on today's evaluation that is 03/21/2023 patient did have a low-grade fever of 99.8 at noon afebrile since then the patient remains to be debated on the vent 40% FiO2 no significant purulent secretions through the ET vomiting diarrhea or any other changes reported by the nursing staff Patient white count is down to 12.4 creatinine is 1.12 vancomycin trough was 13.2 blood cultures and sputum cultures currently pending chest x-ray with perihilar infiltrate with overall improvement Objective - Vital Signs Vital signs: Vital Signs Temp 99.8 F H 03/21/23 12:00 Pulse 86 03/21/23 15:38 Resp 22 03/21/23 13:00 BP 119/74 03/21/23 07:00 Pulse Ox 98 03/21/23 13:00 FiO2 45 03/21/23 15:28 Intake & Output 03/20/23 03/21/23 03/21/23 18:59 06:59 18:59 Intake Total 3038.218 1007.774 338.667 Output Total 2485 1105 555 Balance 553.218 -97.226 -216.333 Weight 102.5 kg 104.8 kg 104.8 kg Intake: IV 1086 220 330 Cefepime 2 gm In Sodium 100 Chloride 0.9% 100 ml @ 25 mls/hr IVPB Q8HR [facility] Rx# :[id number] KVO 1086 220 130 metroNIDAZOLE-NS PMX 500 100 mg In Saline 1 100ml.bag @ 100 mls/hr IVPB Q8HR [facility] Rx#:[id number] Intake, IV Titration 1951.218 787.774 8.667 Amount ACETAMINOPHEN IV (For NPO 200 ) 1,000 mg In Empty Bag 1 bag @ 400 mls/hr IVPB Q6HR PRN Rx#:[id number] Cefepime 2 gm In Sodium 200 Chloride 0.9% 100 ml @ 25 mls/hr IVPB Q8HR [facility] Rx# :[id number] Diltiazem 125 mg In 90.833 125 8.667 Sodium Chloride 0.9% 100 ml @ 5 MG/HR 5 mls/hr IV .Q24H [facility] Rx#:[id number] Heparin Sod,Pork in 0.45% 0 373.575 NaCl 25,000 unit In 0.45 % NaCl 1 250ml.bag @ 9.4 UNITS/KG/HR 9.964 mls/hr IV .Q24H [facility] Rx#: [id number] Potassium Chloride 10 meq 400 In Water For Injection 1 100ml.bag @ 100 mls/hr IVPB Q1HR [facility] Rx#: [id number] Potassium Chloride 20 meq 100 In Water For Injection 1 100ml.bag @ 50 mls/hr IVPB Q2H [facility] Rx#: [id number] Vancomycin 1,750 mg In 500 Sodium Chloride 0.9% 500 ml 500 ml @ 167 mls/hr IVPB Q12H [facility] Rx#: [id number] metroNIDAZOLE-NS PMX 500 100 mg In Saline 1 100ml.bag @ 100 mls/hr IVPB Q8HR [facility] Rx#:[id number] propofoL 1,000 mg In 361.385 289.199 Empty Bag 1 bag @ 15 MCG/ KG/MIN 9.54 mls/hr IV . [id number] [facility] Rx#:[id number] Output: Urine 2485 1105 555 Other: Voiding Method Indwelling Catheter Indwelling Catheter Indwelling Catheter ABP, PAP, CO, CI - Last Documented Arterial Blood Pressure 143/58 - Exam GENERAL DESCRIPTION: An elderly male intubated on the vent RESPIRATORY SYSTEM: Unlabored breathing , decreased breath sounds at bases HEART: S1 S2 regular rate and rhythm , ABDOMEN: Soft , no tenderness EXTREMITIES: No edema feet - Labs CBC & Chem 7: 03/22/23 04:15 03/22/23 04:15 Labs: Abnormal Lab Results - Last 24 Hours (Table) 03/20/23 03/20/23 03/20/23 Range/Units 16:55 17:47 23:58 WBC (3.8-10.6) k/uL RBC (4.30-5.90) m/uL Hgb (13.0-17.5) gm/dL Hct (39.0-53.0) % Neutrophils # (1.3-7.7) k/uL Lymphocytes # (1.0-4.8) k/uL APTT (22.0-30.0) sec ABG pH (7.35-7.45) ABG HCO3 (21-25) mmol/L ABG Total CO2 (19-24) mmol/L ABG O2 Saturation (94-97) % Potassium 3.2 L (3.5-5.1) mmol/L Chloride (98-107) mmol/L BUN (9-20) mg/dL Glucose (74-99) mg/dL POC Glucose (mg/dL) 202 H 162 H (70-110) mg/dL Calcium (8.4-10.2) mg/dL Phosphorus (2.5-4.5) mg/dL 03/21/23 03/21/23 03/21/23 Range/Units 01:11 04:30 04:30 WBC 12.4 H (3.8-10.6) k/uL RBC 3.44 L (4.30-5.90) m/uL Hgb 10.6 L (13.0-17.5) gm/dL Hct 32.0 L (39.0-53.0) % Neutrophils # 11.7 H (1.3-7.7) k/uL Lymphocytes # 0.3 L (1.0-4.8) k/uL APTT (22.0-30.0) sec ABG pH (7.35-7.45) ABG HCO3 (21-25) mmol/L ABG Total CO2 (19-24) mmol/L ABG O2 Saturation (94-97) % Potassium 3.3 L (3.5-5.1) mmol/L Chloride 111 H (98-107) mmol/L BUN 30 H (9-20) mg/dL Glucose 171 H (74-99) mg/dL POC Glucose (mg/dL) (70-110) mg/dL Calcium 7.1 L (8.4-10.2) mg/dL Phosphorus (2.5-4.5) mg/dL 03/21/23 03/21/23 03/21/23 Range/Units 04:30 04:30 05:44 WBC (3.8-10.6) k/uL RBC (4.30-5.90) m/uL Hgb (13.0-17.5) gm/dL Hct (39.0-53.0) % Neutrophils # (1.3-7.7) k/uL Lymphocytes # (1.0-4.8) k/uL APTT 88.7 H (22.0-30.0) sec ABG pH 7.46 H (7.35-7.45) ABG HCO3 26 H (21-25) mmol/L ABG Total CO2 27 H (19-24) mmol/L ABG O2 Saturation 97.7 H (94-97) % Potassium (3.5-5.1) mmol/L Chloride (98-107) mmol/L BUN (9-20) mg/dL Glucose (74-99) mg/dL POC Glucose (mg/dL) (70-110) mg/dL Calcium (8.4-10.2) mg/dL Phosphorus 2.4 L (2.5-4.5) mg/dL 03/21/23 03/21/23 03/21/23 Range/Units 07:09 12:02 12:25 WBC (3.8-10.6) k/uL RBC (4.30-5.90) m/uL Hgb (13.0-17.5) gm/dL Hct (39.0-53.0) % Neutrophils # (1.3-7.7) k/uL Lymphocytes # (1.0-4.8) k/uL APTT 63.1 H (22.0-30.0) sec ABG pH (7.35-7.45) ABG HCO3 (21-25) mmol/L ABG Total CO2 (19-24) mmol/L ABG O2 Saturation (94-97) % Potassium (3.5-5.1) mmol/L Chloride (98-107) mmol/L BUN (9-20) mg/dL Glucose (74-99) mg/dL POC Glucose (mg/dL) 163 H 137 H (70-110) mg/dL Calcium (8.4-10.2) mg/dL Phosphorus (2.5-4.5) mg/dL Microbiology - Last 24 Hours (Table) 03/20/23 22:45 Gram Stain - Preliminary Gastric Aspirate 03/18/23 15:14 Blood Culture - Preliminary Blood 03/18/23 15:06 Blood Culture - Preliminary Blood Assessment and Plan (1) Sepsis Current Visit: Yes Status: Acute Code(s): A41.9 - SEPSIS, UNSPECIFIED ORGANISM SNOMED Code(s): 20671013 Plan: 1patient with a postop fever in this patient with extensive surgery requiring anterior lumbar interbody fusion L5-S1 and insertion of interbody device developing a postop ileus now low-grade fever and tachycardia possible abdominal source however no significant tenderness was noticed on abdominal Examination,, patient did have a negative UA chest x-ray did shows mild strandy atelectasis lower lungs patient did have a CT abdominal pelvis Did show some inflammatory changes in the left lower quadrant and tiny air no mention of any abscess or perforation 2-blood culture currently pending CRP is elevated and procalcitonin is normal at 0.09 3-patient fever source possible abdominal with recent surgery versus neuroleptic malignant syndrome, the patient Reglan has been discontinued , The patient cultures also for negative patient did have resolution of his fever we will continue the patient on vancomycin cefepime and Flagyl while waiting for the condition to stabilize and monitor clinical course closely Dictation was produced using [employer] dictation software. please excuse any grammatical, word or spelling errors. Time with Patient: Less than 30
[2023-03-22] MEDS: CEFEPIME 2 GM in SODIUM CHLORIDE 0.9% 100 ML IVPB SCH ×4 (09:58→16:02)
[2023-03-22] MEDS: PANTOPRAZOLE 40 MG/10 ML VIAL IVP SCH (10:07)
--- NOTE | 2023-03-22 10:07 | P.PN ---
Subjective Progress Note Date: 03/22/23 Pt has had no fevers in last 48 hours. General: intubated, sedated HEENT: normocephalic, atraumatic, no tracheal deviation Respiratory: symmetric chest rise, no cyanosis, ventilator dependent CVS: perfusing all extremities, no distal gangrene, no pitting edema GI: soft, ND : no SPT, no CVAT, dennis is present Neuro: sedated Hospital course: Patient is a 67-year-old male with a PMH of hypothyroidism, hypertension, and degenerative disc disease with chronic lower back pain who was admitted for an elective lumbosacral fusion and decompression. The patient underwent a 2-stage procedure with anterior and posterior approaches on 03/13. After surgery patient developed ileus and A. fib with RVR and also found to have non-ST elevation [place]. Gen. surgery and cardiology were consulted on the patient. The patient had NG tube placed for ileus and was started on Reglan 10 mg every 6 hours. Patient was having high-grade fevers and tachycardia on 03/18 was started on vancomycin, cefepime, Flagyl. Assessment: Severe sepsis with unknown source Non-ST elevation [place], type II Paroxysmal atrial fibrillation with RVR Postoperative ileus Status post lumbosacral decompression and fusion surgery Plan: Today, patient's febrile to 100, 147/59, heart rate 101, 97% on mechanical vent ilation with an FiO2 of 50% CBC demonstrates leukocytosis to 12.4, hemoglobin of 10.6 Basic metabolic panel shows potassium of 3.5, BUN 30 Chest x-ray from 03/22 is personally interpreted, shows improving pulmonary edema, but still present, new left lower lobe infiltrate Continue vancomycin cefepime, Flagyl; appreciate ID recommendations Consideration of serotonin syndrome vs neuroleptic malignant syndrome; discontinue Reglan 10 mg IV every 6 hours, discontinue benadryl Lasix holiday today TPN has been initiated Levothyroxine 125mcg IV daily continues Pt is full code Objective - Vital Signs Vital signs: Vital Signs Temp 98.1 F 03/22/23 04:00 Pulse 79 03/22/23 09:00 Resp 20 03/22/23 09:00 BP 135/82 03/22/23 04:00 Pulse Ox 98 03/22/23 09:00 FiO2 40 03/22/23 08:07 Intake & Output 03/21/23 03/22/23 03/22/23 18:59 06:59 18:59 Intake Total 1134.810 796.208 118.688 Output Total 2495 915 700 Balance -1360.190 -118.792 -581.312 Weight 104.8 kg 106.5 kg Intake: IV 910 530 50 Cefepime 2 gm In Sodium 200 Chloride 0.9% 100 ml @ 25 mls/hr IVPB Q8HR [facility] Rx# :[id number] KVO 190 200 20 Mvi, Adult No.4 with Vit 120 330 30 K 10 ml Trace (Conc-1Ml/ Dose) 1 ml In Amino Acid 5%-D15w+Lytes*E* 1,000 ml @ 30 mls/hr IV .Q24H [facility] Rx#:[id number] Potassium Chloride 10 meq 200 In Water For Injection 1 100ml.bag @ 100 mls/hr IVPB Q1H [facility] Rx#: [id number] metroNIDAZOLE-NS PMX 500 200 mg In Saline 1 100ml.bag @ 100 mls/hr IVPB Q8HR [facility] Rx#:[id number] Intake, IV Titration 224.810 266.208 68.688 Amount Diltiazem 125 mg In 8.667 Sodium Chloride 0.9% 100 ml @ 5 MG/HR 5 mls/hr IV .Q24H [facility] Rx#:[id number] Heparin Sod,Pork in 0.45% 116.143 NaCl 25,000 unit In 0.45 % NaCl 1 250ml.bag @ 9.4 UNITS/KG/HR 9.964 mls/hr IV .Q24H [facility] Rx#: [id number] propofoL 1,000 mg In 100.000 266.208 68.688 Empty Bag 1 bag @ 15 MCG/ KG/MIN 9.54 mls/hr IV . [id number] [facility] Rx#:[id number] Output: Urine 2495 915 700 Other: Voiding Method Indwelling Catheter Indwelling Catheter ABP, PAP, CO, CI - Last Documented Arterial Blood Pressure 145/61 - Labs CBC & Chem 7: 03/22/23 04:15 03/22/23 04:15 Labs: Abnormal Lab Results - Last 24 Hours (Table) 03/21/23 03/21/23 03/21/23 Range/Units 04:30 12:02 12:25 WBC (3.8-10.6) k/uL RBC (4.30-5.90) m/uL Hgb (13.0-17.5) gm/dL Hct (39.0-53.0) % Neutrophils # (1.3-7.7) k/uL Lymphocytes # (1.0-4.8) k/uL APTT 63.1 H (22.0-30.0) sec ABG pH (7.35-7.45) ABG Total CO2 (19-24) mmol/L ABG O2 Saturation (94-97) % Sodium (137-145) mmol/L Chloride (98-107) mmol/L BUN (9-20) mg/dL Glucose (74-99) mg/dL POC Glucose (mg/dL) 137 H (70-110) mg/dL Calcium (8.4-10.2) mg/dL Ionized Calcium Osmin (4.5-5.3) mg/dL Phosphorus 2.4 L (2.5-4.5) mg/dL Magnesium (1.6-2.3) mg/dL 03/21/23 03/21/23 03/22/23 Range/Units 17:56 23:35 00:51 WBC (3.8-10.6) k/uL RBC (4.30-5.90) m/uL Hgb (13.0-17.5) gm/dL Hct (39.0-53.0) % Neutrophils # (1.3-7.7) k/uL Lymphocytes # (1.0-4.8) k/uL APTT (22.0-30.0) sec ABG pH (7.35-7.45) ABG Total CO2 (19-24) mmol/L ABG O2 Saturation (94-97) % Sodium (137-145) mmol/L Chloride (98-107) mmol/L BUN (9-20) mg/dL Glucose (74-99) mg/dL POC Glucose (mg/dL) 194 H 203 H 224 H (70-110) mg/dL Calcium (8.4-10.2) mg/dL Ionized Calcium [place]min (4.5-5.3) mg/dL Phosphorus (2.5-4.5) mg/dL Magnesium (1.6-2.3) mg/dL 03/22/23 03/22/23 03/22/23 Range/Units 04:15 04:15 04:15 WBC 14.4 H (3.8-10.6) k/uL RBC 3.49 L (4.30-5.90) m/uL Hgb 10.6 L (13.0-17.5) gm/dL Hct 32.6 L (39.0-53.0) % Neutrophils # 13.5 H (1.3-7.7) k/uL Lymphocytes # 0.3 L (1.0-4.8) k/uL APTT (22.0-30.0) sec ABG pH (7.35-7.45) ABG Total CO2 (19-24) mmol/L ABG O2 Saturation (94-97) % Sodium 146 H (137-145) mmol/L Chloride 117 H (98-107) mmol/L BUN 39 H (9-20) mg/dL Glucose 201 H (74-99) mg/dL POC Glucose (mg/dL) (70-110) mg/dL Calcium 7.5 L (8.4-10.2) mg/dL Ionized Calcium [place]min 4.3 L (4.5-5.3) mg/dL Phosphorus (2.5-4.5) mg/dL Magnesium 2.5 H (1.6-2.3) mg/dL 03/22/23 03/22/23 03/22/23 Range/Units 04:15 05:25 05:33 WBC (3.8-10.6) k/uL RBC (4.30-5.90) m/uL Hgb (13.0-17.5) gm/dL Hct (39.0-53.0) % Neutrophils # (1.3-7.7) k/uL Lymphocytes # (1.0-4.8) k/uL APTT 53.5 H (22.0-30.0) sec ABG pH (7.35-7.45) ABG Total CO2 (19-24) mmol/L ABG O2 Saturation (94-97) % Sodium (137-145) mmol/L Chloride (98-107) mmol/L BUN (9-20) mg/dL Glucose (74-99) mg/dL POC Glucose (mg/dL) 194 H 208 H (70-110) mg/dL Calcium (8.4-10.2) mg/dL Ionized Calcium Osmin (4.5-5.3) mg/dL Phosphorus (2.5-4.5) mg/dL Magnesium (1.6-2.3) mg/dL 03/22/23 Range/Units 05:45 WBC (3.8-10.6) k/uL RBC (4.30-5.90) m/uL Hgb (13.0-17.5) gm/dL Hct (39.0-53.0) % Neutrophils # (1.3-7.7) k/uL Lymphocytes # (1.0-4.8) k/uL APTT (22.0-30.0) sec ABG pH 7.46 H (7.35-7.45) ABG Total CO2 26 H (19-24) mmol/L ABG O2 Saturation 98.1 H (94-97) % Sodium (137-145) mmol/L Chloride (98-107) mmol/L BUN (9-20) mg/dL Glucose (74-99) mg/dL POC Glucose (mg/dL) (70-110) mg/dL Calcium (8.4-10.2) mg/dL Ionized Calcium Osmin (4.5-5.3) mg/dL Phosphorus (2.5-4.5) mg/dL Magnesium (1.6-2.3) mg/dL Microbiology - Last 24 Hours (Table) 03/18/23 15:14 Blood Culture - Preliminary Blood 03/18/23 15:06 Blood Culture - Preliminary Blood 03/20/23 22:45 Gram Stain - Preliminary Gastric Aspirate
[2023-03-22] MEDS: LEVOTHYROXINE IVP 100 MCG/5 ML VIAL IV SCH (10:09)
--- NOTE | 2023-03-22 10:59 | P.PN ---
Subjective Progress Note Date: 03/22/23 This is Billy Harrington NP, I'm dictating on behalf of Dr. Wagner's H&P and A&P. Patient was interviewed and examined. Patient is a 67-year-old male who is currently admitted to the hospital after undergoing elective back surgery on 03/13/2023. Postoperatively he developed an ileus and A. fib/atypical atrial flutter. 3 days ago the patient had mental status changes and was transferred to the ICU and subsequently intubated. From a cardiology standpoint the patient is maintaining sinus rhythm on IV m edications, as he cannot tolerate any oral medications at this time secondary to his ileus. His blood pressure is stable, and telemetry demonstrates normal sinus rhythm. GENERAL: Ill-appearing, well-nourished and in no acute distress. Intubated and sedated. NECK: Supple without JVD or thyromegaly. LUNGS: Breath sounds clear to auscultation bilaterally. Respiration equal and unlabored. No wheezes, rales or rhonchi. HEART: Regular rate and rhythm without murmurs, rubs or gallops. S1 and S2 h eard. EXTREMITIES: Normal range of motion, no edema. No clubbing or cyanosis. Peripheral pulses intact and strong. VITALS: Temp 98.8, pulse 76, respirations 20, blood pressure 148/62, O2 saturation 98% on mechanical ventilation TELEMETRY: Normal sinus rhythm LABS: White count 14.4, hemoglobin 10.6, platelets 248, sodium 146, potassium 3.9, B1 39, creatinine 1.09, calcium 7.5, magnesium 2.5 IMPRESSION: 1. Status post L5 to S1 and I am and L4 to S1 posterior lateral interbody fusion 2. Postoperative ileus 3. New onset paroxysmal atrial flutter fibrillation/typical atrial flutter 4. Non-STEMI 5. Acute hypoxic respiratory failure PLAN: Continue IV cardiac medications until patient is able to tolerate oral intake. At that time IV meds can be changed to oral. Continue supportive treatment. Further recommendations based on patient's clinical course. Objective - Vital Signs Vital signs: Vital Signs Temp 98.8 F 03/22/23 10:00 Pulse 76 03/22/23 10:00 Resp 20 03/22/23 10:00 BP 135/82 03/22/23 04:00 Pulse Ox 98 03/22/23 10:00 FiO2 40 03/22/23 08:07 Intake & Output 03/21/23 03/22/23 03/22/23 18:59 06:59 18:59 Intake Total 1134.810 796.208 118.688 Output Total 2495 915 700 Balance -1360.190 -118.792 -581.312 Weight 104.8 kg 106.5 kg Intake: IV 910 530 50 Cefepime 2 gm In Sodium 200 Chloride 0.9% 100 ml @ 25 mls/hr IVPB Q8HR [facility] Rx# :[id number] KVO 190 200 20 Mvi, Adult No.4 with Vit 120 330 30 K 10 ml Trace (Conc-1Ml/ Dose) 1 ml In Amino Acid 5%-D15w+Lytes*E* 1,000 ml @ 30 mls/hr IV .Q24H [facility] Rx#:[id number] Potassium Chloride 10 meq 200 In Water For Injection 1 100ml.bag @ 100 mls/hr IVPB Q1H [facility] Rx#: [id number] metroNIDAZOLE-NS PMX 500 200 mg In Saline 1 100ml.bag @ 100 mls/hr IVPB Q8HR [facility] Rx#:[id number] Intake, IV Titration 224.810 266.208 68.688 Amount Diltiazem 125 mg In 8.667 Sodium Chloride 0.9% 100 ml @ 5 MG/HR 5 mls/hr IV .Q24H [facility] Rx#:[id number] Heparin Sod,Pork in 0.45% 116.143 NaCl 25,000 unit In 0.45 % NaCl 1 250ml.bag @ 9.4 UNITS/KG/HR 9.964 mls/hr IV .Q24H [facility] Rx#: [id number] propofoL 1,000 mg In 100.000 266.208 68.688 Empty Bag 1 bag @ 15 MCG/ KG/MIN 9.54 mls/hr IV . [id number] [facility] Rx#:[id number] Output: Urine 2495 915 700 Other: Voiding Method Indwelling Catheter Indwelling Catheter ABP, PAP, CO, CI - Last Documented Arterial Blood Pressure 148/62 - Labs CBC & Chem 7: 03/22/23 04:15 03/22/23 04:15 Labs: Abnormal Lab Results - Last 24 Hours (Table) 03/21/23 03/21/23 03/21/23 Range/Units 04:30 12:02 12:25 WBC (3.8-10.6) k/uL RBC (4.30-5.90) m/uL Hgb (13.0-17.5) gm/dL Hct (39.0-53.0) % Neutrophils # (1.3-7.7) k/uL Lymphocytes # (1.0-4.8) k/uL APTT 63.1 H (22.0-30.0) sec ABG pH (7.35-7.45) ABG Total CO2 (19-24) mmol/L ABG O2 Saturation (94-97) % Sodium (137-145) mmol/L Chloride (98-107) mmol/L BUN (9-20) mg/dL Glucose (74-99) mg/dL POC Glucose (mg/dL) 137 H (70-110) mg/dL Calcium (8.4-10.2) mg/dL Ionized Calcium Osmin (4.5-5.3) mg/dL Phosphorus 2.4 L (2.5-4.5) mg/dL Magnesium (1.6-2.3) mg/dL 03/21/23 03/21/23 03/22/23 Range/Units 17:56 23:35 00:51 WBC (3.8-10.6) k/uL RBC (4.30-5.90) m/uL Hgb (13.0-17.5) gm/dL Hct (39.0-53.0) % Neutrophils # (1.3-7.7) k/uL Lymphocytes # (1.0-4.8) k/uL APTT (22.0-30.0) sec ABG pH (7.35-7.45) ABG Total CO2 (19-24) mmol/L ABG O2 Saturation (94-97) % Sodium (137-145) mmol/L Chloride (98-107) mmol/L BUN (9-20) mg/dL Glucose (74-99) mg/dL POC Glucose (mg/dL) 194 H 203 H 224 H (70-110) mg/dL Calcium (8.4-10.2) mg/dL Ionized Calcium Osmin (4.5-5.3) mg/dL Phosphorus (2.5-4.5) mg/dL Magnesium (1.6-2.3) mg/dL 03/22/23 03/22/23 03/22/23 Range/Units 04:15 04:15 04:15 WBC 14.4 H (3.8-10.6) k/uL RBC 3.49 L (4.30-5.90) m/uL Hgb 10.6 L (13.0-17.5) gm/dL Hct 32.6 L (39.0-53.0) % Neutrophils # 13.5 H (1.3-7.7) k/uL Lymphocytes # 0.3 L (1.0-4.8) k/uL APTT (22.0-30.0) sec ABG pH (7.35-7.45) ABG Total CO2 (19-24) mmol/L ABG O2 Saturation (94-97) % Sodium 146 H (137-145) mmol/L Chloride 117 H (98-107) mmol/L BUN 39 H (9-20) mg/dL Glucose 201 H (74-99) mg/dL POC Glucose (mg/dL) (70-110) mg/dL Calcium 7.5 L (8.4-10.2) mg/dL Ionized Calcium Osmin 4.3 L (4.5-5.3) mg/dL Phosphorus (2.5-4.5) mg/dL Magnesium 2.5 H (1.6-2.3) mg/dL 03/22/23 03/22/23 03/22/23 Range/Units 04:15 05:25 05:33 WBC (3.8-10.6) k/uL RBC (4.30-5.90) m/uL Hgb (13.0-17.5) gm/dL Hct (39.0-53.0) % Neutrophils # (1.3-7.7) k/uL Lymphocytes # (1.0-4.8) k/uL APTT 53.5 H (22.0-30.0) sec ABG pH (7.35-7.45) ABG Total CO2 (19-24) mmol/L ABG O2 Saturation (94-97) % Sodium (137-145) mmol/L Chloride (98-107) mmol/L BUN (9-20) mg/dL Glucose (74-99) mg/dL POC Glucose (mg/dL) 194 H 208 H (70-110) mg/dL Calcium (8.4-10.2) mg/dL Ionized Calcium Osmin (4.5-5.3) mg/dL Phosphorus (2.5-4.5) mg/dL Magnesium (1.6-2.3) mg/dL 03/22/23 Range/Units 05:45 WBC (3.8-10.6) k/uL RBC (4.30-5.90) m/uL Hgb (13.0-17.5) gm/dL Hct (39.0-53.0) % Neutrophils # (1.3-7.7) k/uL Lymphocytes # (1.0-4.8) k/uL APTT (22.0-30.0) sec ABG pH 7.46 H (7.35-7.45) ABG Total CO2 26 H (19-24) mmol/L ABG O2 Saturation 98.1 H (94-97) % Sodium (137-145) mmol/L Chloride (98-107) mmol/L BUN (9-20) mg/dL Glucose (74-99) mg/dL POC Glucose (mg/dL) (70-110) mg/dL Calcium (8.4-10.2) mg/dL Ionized Calcium Osmin (4.5-5.3) mg/dL Phosphorus (2.5-4.5) mg/dL Magnesium (1.6-2.3) mg/dL Microbiology - Last 24 Hours (Table) 03/18/23 15:14 Blood Culture - Preliminary Blood 03/18/23 15:06 Blood Culture - Preliminary Blood 03/20/23 22:45 Gram Stain - Preliminary Gastric Aspirate
--- NOTE | 2023-03-22 11:07 | P.PN ---
Subjective Progress Note Date: 03/22/23 Principal diagnosis: Ileus Patient remains on the ventilator. White blood cell count today is 14.4. He is afebrile. Hemoglobin is stable. No pain when he had his last sedation holiday per nursing. Objective - Vital Signs Vital signs: Vital Signs Temp 98.8 F 03/22/23 10:00 Pulse 76 03/22/23 10:00 Resp 20 03/22/23 10:00 BP 135/82 03/22/23 04:00 Pulse Ox 98 03/22/23 10:00 FiO2 40 03/22/23 08:07 Intake & Output 03/21/23 03/22/23 03/22/23 18:59 06:59 18:59 Intake Total 1134.810 796.208 118.688 Output Total 2495 915 700 Balance -1360.190 -118.792 -581.312 Weight 104.8 kg 106.5 kg Intake: IV 910 530 50 Cefepime 2 gm In Sodium 200 Chloride 0.9% 100 ml @ 25 mls/hr IVPB Q8HR [facility] Rx# :[id number] KVO 190 200 20 Mvi, Adult No.4 with Vit 120 330 30 K 10 ml Trace (Conc-1Ml/ Dose) 1 ml In Amino Acid 5%-D15w+Lytes*E* 1,000 ml @ 30 mls/hr IV .Q24H [facility] Rx#:[id number] Potassium Chloride 10 meq 200 In Water For Injection 1 100ml.bag @ 100 mls/hr IVPB Q1H [facility] Rx#: [id number] metroNIDAZOLE-NS PMX 500 200 mg In Saline 1 100ml.bag @ 100 mls/hr IVPB Q8HR [facility] Rx#:[id number] Intake, IV Titration 224.810 266.208 68.688 Amount Diltiazem 125 mg In 8.667 Sodium Chloride 0.9% 100 ml @ 5 MG/HR 5 mls/hr IV .Q24H [facility] Rx#:[id number] Heparin Sod,Pork in 0.45% 116.143 NaCl 25,000 unit In 0.45 % NaCl 1 250ml.bag @ 9.4 UNITS/KG/HR 9.964 mls/hr IV .Q24H [facility] Rx#: [id number] propofoL 1,000 mg In 100.000 266.208 68.688 Empty Bag 1 bag @ 15 MCG/ KG/MIN 9.54 mls/hr IV . [id number] [facility] Rx#:[id number] Output: Urine 2495 915 700 Other: Voiding Method Indwelling Catheter Indwelling Catheter ABP, PAP, CO, CI - Last Documented Arterial Blood Pressure 148/62 - Exam Abdomen: Soft, nontender, nondistended - Labs CBC & Chem 7: 03/22/23 04:15 03/22/23 04:15 Labs: Abnormal Lab Results - Last 24 Hours (Table) 03/21/23 03/21/23 03/21/23 Range/Units 04:30 12:02 12:25 WBC (3.8-10.6) k/uL RBC (4.30-5.90) m/uL Hgb (13.0-17.5) gm/dL Hct (39.0-53.0) % Neutrophils # (1.3-7.7) k/uL Lymphocytes # (1.0-4.8) k/uL APTT 63.1 H (22.0-30.0) sec ABG pH (7.35-7.45) ABG Total CO2 (19-24) mmol/L ABG O2 Saturation (94-97) % Sodium (137-145) mmol/L Chloride (98-107) mmol/L BUN (9-20) mg/dL Glucose (74-99) mg/dL POC Glucose (mg/dL) 137 H (70-110) mg/dL Calcium (8.4-10.2) mg/dL Ionized Calcium Osmin (4.5-5.3) mg/dL Phosphorus 2.4 L (2.5-4.5) mg/dL Magnesium (1.6-2.3) mg/dL 03/21/23 03/21/23 03/22/23 Range/Units 17:56 23:35 00:51 WBC (3.8-10.6) k/uL RBC (4.30-5.90) m/uL Hgb (13.0-17.5) gm/dL Hct (39.0-53.0) % Neutrophils # (1.3-7.7) k/uL Lymphocytes # (1.0-4.8) k/uL APTT (22.0-30.0) sec ABG pH (7.35-7.45) ABG Total CO2 (19-24) mmol/L ABG O2 Saturation (94-97) % Sodium (137-145) mmol/L Chloride (98-107) mmol/L BUN (9-20) mg/dL Glucose (74-99) mg/dL POC Glucose (mg/dL) 194 H 203 H 224 H (70-110) mg/dL Calcium (8.4-10.2) mg/dL Ionized Calcium Osmin (4.5-5.3) mg/dL Phosphorus (2.5-4.5) mg/dL Magnesium (1.6-2.3) mg/dL 03/22/23 03/22/23 03/22/23 Range/Units 04:15 04:15 04:15 WBC 14.4 H (3.8-10.6) k/uL RBC 3.49 L (4.30-5.90) m/uL Hgb 10.6 L (13.0-17.5) gm/dL Hct 32.6 L (39.0-53.0) % Neutrophils # 13.5 H (1.3-7.7) k/uL Lymphocytes # 0.3 L (1.0-4.8) k/uL APTT (22.0-30.0) sec ABG pH (7.35-7.45) ABG Total CO2 (19-24) mmol/L ABG O2 Saturation (94-97) % Sodium 146 H (137-145) mmol/L Chloride 117 H (98-107) mmol/L BUN 39 H (9-20) mg/dL Glucose 201 H (74-99) mg/dL POC Glucose (mg/dL) (70-110) mg/dL Calcium 7.5 L (8.4-10.2) mg/dL Ionized Calcium Osmin 4.3 L (4.5-5.3) mg/dL Phosphorus (2.5-4.5) mg/dL Magnesium 2.5 H (1.6-2.3) mg/dL 03/22/23 03/22/23 03/22/23 Range/Units 04:15 05:25 05:33 WBC (3.8-10.6) k/uL RBC (4.30-5.90) m/uL Hgb (13.0-17.5) gm/dL Hct (39.0-53.0) % Neutrophils # (1.3-7.7) k/uL Lymphocytes # (1.0-4.8) k/uL APTT 53.5 H (22.0-30.0) sec ABG pH (7.35-7.45) ABG Total CO2 (19-24) mmol/L ABG O2 Saturation (94-97) % Sodium (137-145) mmol/L Chloride (98-107) mmol/L BUN (9-20) mg/dL Glucose (74-99) mg/dL POC Glucose (mg/dL) 194 H 208 H (70-110) mg/dL Calcium (8.4-10.2) mg/dL Ionized Calcium Osmin (4.5-5.3) mg/dL Phosphorus (2.5-4.5) mg/dL Magnesium (1.6-2.3) mg/dL 03/22/23 Range/Units 05:45 WBC (3.8-10.6) k/uL RBC (4.30-5.90) m/uL Hgb (13.0-17.5) gm/dL Hct (39.0-53.0) % Neutrophils # (1.3-7.7) k/uL Lymphocytes # (1.0-4.8) k/uL APTT (22.0-30.0) sec ABG pH 7.46 H (7.35-7.45) ABG Total CO2 26 H (19-24) mmol/L ABG O2 Saturation 98.1 H (94-97) % Sodium (137-145) mmol/L Chloride (98-107) mmol/L BUN (9-20) mg/dL Glucose (74-99) mg/dL POC Glucose (mg/dL) (70-110) mg/dL Calcium (8.4-10.2) mg/dL Ionized Calcium Osmin (4.5-5.3) mg/dL Phosphorus (2.5-4.5) mg/dL Magnesium (1.6-2.3) mg/dL Microbiology - Last 24 Hours (Table) 03/18/23 15:14 Blood Culture - Preliminary Blood 08/09/23 15:06 Blood Culture - Preliminary Blood 03/20/23 22:45 Gram Stain - Preliminary Gastric Aspirate Assessment and Plan (1) Ileus Narrative/Plan: Patient seems to be improving. Source for sepsis remains unclear. Continue antibiotics. Ventilatory weaning per pulmonary. Current Visit: Yes Status: Acute Code(s): K56.7 - ILEUS, UNSPECIFIED SNOME D Code(s): 504556438
[2023-03-22] MEDS: GABAPENTIN 300 MG CAP PO SCH ×3 (11:26→19:46)
[2023-03-22] MEDS: CHLORHEXIDINE GLUCONATE 15 ML CUP MUCOUS MEM SCH ×2 (11:26→21:00)
[2023-03-22] MEDS: ASPIRIN 81 MG PO SCH (11:27)
[2023-03-22] MEDS: SIMETHICONE 40 MG/0.6 ML DROPS 2,000 MG/30 ML BOTTLE PO SCH ×4 (11:27→22:00)
--- NOTE | 2023-03-22 11:36 | P.PN ---
Subjective Progress Note Date: 03/22/23 Principal diagnosis: Acute hypoxic respiratory failure, abdominal sepsis, pneumonia This is a 67-year-old white male, known to have history of lymphoma with stem cell transplant, initially admitted on 03/2023. Patient was admitted with lower extremities numbness and low back pain, underwent anterior retroperitoneal exposure performed by Dr. beckford,, he also underwent anterior lumbar interbody fusion L5-S1 insertion of interbody device, posterior lateral and interbody fusi on L4-L5, posterior lateral instrumented fusion L5-S1, laminoforaminotomy for decompression and cage placement L4-L5, use of [employer] navigation for screw placement. His immediate postoperative course was uneventful, on 03/15/2023, patient was seen by cardiology for him than as stated the elevated myocardial infarction and he was seen by many other consultants including general surgery for small bowel obstruction/ileus. Cardiology recommended heparin, and general surgery recommended treatment with the Reglan and simethicone. Over the last 1 week, patient has been gradually getting worse, and he has been developing over the last 2 days worsening shortness of breath. Patient was placed on multiple antibiotics, broad-spectrum antibiotics after he was seen by infectious disease on 03/18/2023, patient was treated for presumptive abdominal sepsis and possible pneumonia. Cultures have been negative/mostly blood cultures and no other cultures were sent. Patient has been receiving cefepime, vancomycin, and Flagyl. Chest x-ray on 03/18/2023 showed minimal basilar atelectasis is no clear- cut evidence of infiltrate however chest x-ray on 03/19/2023 showed infiltrates involving the left lower lobe, left midlung, and the right lower lobe. Clearly the patient developed significant airspace disease while inpatient. While on the medical floor, patient was complaining of abdominal pain and distention, CT abdomen done yesterday showed inflammatory changes in the left lower quadrant extending towards the inguinal region and small tiny amount of free air which was evaluated by general surgery and felt this is most likely related to his recent retroperitoneal approach/surgery. Yesterday I was notified about this patient having worsening shortness of breath, hypoxia, tachycardia, and hypert ension. I recommended transferring the patient to the ICU and a few hours after he was in the ICU, he continued to do poorly early this morning the patient had to be intubated and placed on mechanical ventilation. He is now on tidal volume of 500 assist control rate 20 FiO2 50% and PEEP of 5. ABG post intubation showed a pO2 of 231 pCO2 42 pH of 7.38. Hence FiO2 was cut down to 50%. WBC count is 12.8 hemoglobin is 11.1, basic metabolic profile is normal except for potassium of 3.4 BUN is 22 creatinine 1.11. Chest x-ray clearly shows bilateral air space disease consistent with pneumonia or possibly ARDS patient is now on propofol at 45 mcg/kg/m his IV fluid is a 100 mL an hour in the form of 0.9 normal saline, his also on Cardizem drip. Patient was reevaluated today on 03/21/2023, remains in the ICU intubated and mechanically ventilated. He is on assist control rate of 20 tidal volume 500 FiO2 50% and PEEP of 5. His ABG showed a pO2 of 100 pCO2 36 pH of 7.46, FiO2 was cut down to 45%. Patient remains on Cardizem drip at 10 mg per hour and I cut it down to 5 he is on propofol at 45 mcg/kg/m he is also on heparin as per cardiology. Antibiotics mroeno patient is receiving vancomycin and Flagyl. TPN to be started today, and again I will cut down his Cardizem to 5 mg per hour. On lower sedation, the patient seems to be comprehending, and he follows simple instructions. Chest x-ray continues to show significant infiltrate in the left lower lobe and right lower lobe, hence I don't believe the patient is quite ready for weaning and extubation at this point in time. WBC count is 12.4 hemoglobin is 10.6, PTT is 88. Electronic for normal renal profile is normal blood sugar is 163 Reevaluated today on 03/22/2023, patient remains in the ICU intubated and mechanically ventilated sedated on propofol at 40 mcg/kg/m remains on Cardizem at 5 mg per hour remains on heparin as per cardiology. He is on assist control rate of 20, tidal volume 500 FiO2 40% PEEP of 5. ABG showed a pO2 of 103 pCO2 36 pH of 7.46, hence I cut down the FiO2 to 35%. Patient is also on TPN at 50 mL per hour. His chest x-ray is showing slight improvement in his infiltrate nonetheless continues to have significant consolidation in the left lower lobe, his right-sided pneumonia seems to be improving. Today the plan is to start addressing her mental status off sedation and decide whether the patient could be considered for weaning in the next 24 hours. Sedation holiday will be given today, and only assessment of mental status to be done today. WBC count remains at the time at 14.4 hemoglobin is 10.6 PTT is 53. Electrolytes are normal except for slightly elevated sodium of 146 and the rest of the labs are unremarkable. Objective - Vital Signs Vital signs: Vital Signs Temp 98.8 F 03/22/23 10:00 Pulse 76 03/22/23 10:00 Resp 20 03/22/23 10:00 BP 135/82 03/22/23 04:00 Pulse Ox 98 03/22/23 10:00 FiO2 40 03/22/23 08:07 Intake & Output 03/21/23 03/22/23 03/22/23 18:59 06:59 18:59 Intake Total 1134.810 796.208 118.688 Output Total 2495 915 700 Balance -1360.190 -118.792 -581.312 Weight 104.8 kg 106.5 kg Intake: IV 910 530 50 Cefepime 2 gm In Sodium 200 Chloride 0.9% 100 ml @ 25 mls/hr IVPB Q8HR [facility] Rx# :[id number] KVO 190 200 20 Mvi, Adult No.4 with Vit 120 330 30 K 10 ml Trace (Conc-1Ml/ Dose) 1 ml In Amino Acid 5%-D15w+Lytes*E* 1,000 ml @ 30 mls/hr IV .Q24H [facility] Rx#:[id number] Potassium Chloride 10 meq 200 In Water For Injection 1 100ml.bag @ 100 mls/hr IVPB Q1H [facility] Rx#: [id number] metroNIDAZOLE-NS PMX 500 200 mg In Saline 1 100ml.bag @ 100 mls/hr IVPB Q8HR [facility] Rx#:[id number] Intake, IV Titration 224.810 266.208 68.688 Amount Diltiazem 125 mg In 8.667 Sodium Chloride 0.9% 100 ml @ 5 MG/HR 5 mls/hr IV .Q24H [facility] Rx#:[id number] Heparin Sod,Pork in 0.45% 116.143 NaCl 25,000 unit In 0.45 % NaCl 1 250ml.bag @ 9.4 UNITS/KG/HR 9.964 mls/hr IV .Q24H [facility] Rx#: [id number] propofoL 1,000 mg In 100.000 266.208 68.688 Empty Bag 1 bag @ 15 MCG/ KG/MIN 9.54 mls/hr IV . [id number] [facility] Rx#:[id number] Output: Urine 2495 915 700 Other: Voiding Method Indwelling Catheter Indwelling Catheter ABP, PAP, CO, CI - Last Documented Arterial Blood Pressure 148/62 - Exam Physical Exam: Revealed a 67-year-old white male intubated mechanically ventilated on propofol, 40 mcg/kg/m, in no distress. Head: Atraumatic, normocephalic, endotracheal tube and nasogastric tube intact HEENT:[Neck is supple.] [No neck masses.] [No thyromegaly.] [No JVD.] MediPort noted in the right subclavian area. Seems to be intact Chest: [Symmetrical chest expansion crackles at the bases no rhonchi and no wheezes Cardiac Exam: [Normal S1 and S2, no S3 gallop, no murmur.] Abdomen: [Soft, nontender, no megaly, no rebound, no guarding, normal bowel sounds.] Extremities: [No clubbing, 1+ bipedal edema, no cyanosis.] Neurological Exam: Sedated, could not be assessed on propofol Psychiatric: Could not assess - Labs CBC & Chem 7: 03/22/23 04:15 03/22/23 04:15 Labs: Abnormal Lab Results - Last 24 Hours (Table) 03/21/23 03/21/23 03/21/23 Range/Units 04:30 12:02 12:25 WBC (3.8-10.6) k/uL RBC (4.30-5.90) m/uL Hgb (13.0-17.5) gm/dL Hct (39.0-53.0) % Neutrophils # (1.3-7.7) k/uL Lymphocytes # (1.0-4.8) k/uL APTT 63.1 H (22.0-30.0) sec ABG pH (7.35-7.45) ABG Total CO2 (19-24) mmol/L ABG O2 Saturation (94-97) % Sodium (137-145) mmol/L Chloride (98-107) mmol/L BUN (9-20) mg/dL Glucose (74-99) mg/dL POC Glucose (mg/dL) 137 H (70-110) mg/dL Calcium (8.4-10.2) mg/dL Ionized Calcium Osmin (4.5-5.3) mg/dL Phosphorus 2.4 L (2.5-4.5) mg/dL Magnesium (1.6-2.3) mg/dL 03/21/23 03/21/23 03/22/23 Range/Units 17:56 23:35 00:51 WBC (3.8-10.6) k/uL RBC (4.30-5.90) m/uL Hgb (13.0-17.5) gm/dL Hct (39.0-53.0) % Neutrophils # (1.3-7.7) k/uL Lymphocytes # (1.0-4.8) k/uL APTT (22.0-30.0) sec ABG pH (7.35-7.45) ABG Total CO2 (19-24) mmol/L ABG O2 Saturation (94-97) % Sodium (137-145) mmol/L Chloride (98-107) mmol/L BUN (9-20) mg/dL Glucose (74-99) mg/dL POC Glucose (mg/dL) 194 H 203 H 224 H (70-110) mg/dL Calcium (8.4-10.2) mg/dL Ionized Calcium Osmin (4.5-5.3) mg/dL Phosphorus (2.5-4.5) mg/dL Magnesium (1.6-2.3) mg/dL 03/22/23 03/22/23 03/22/23 Range/Units 04:15 04:15 04:15 WBC 14.4 H (3.8-10.6) k/uL RBC 3.49 L (4.30-5.90) m/uL Hgb 10.6 L (13.0-17.5) gm/dL Hct 32.6 L (39.0-53.0) % Neutrophils # 13.5 H (1.3-7.7) k/uL Lymphocytes # 0.3 L (1.0-4.8) k/uL APTT (22.0-30.0) sec ABG pH (7.35-7.45) ABG Total CO2 (19-24) mmol/L ABG O2 Saturation (94-97) % Sodium 146 H (137-145) mmol/L Chloride 117 H (98-107) mmol/L BUN 39 H (9-20) mg/dL Glucose 201 H (74-99) mg/dL POC Glucose (mg/dL) (70-110) mg/dL Calcium 7.5 L (8.4-10.2) mg/dL Ionized Calcium Osmin 4.3 L (4.5-5.3) mg/dL Phosphorus (2.5-4.5) mg/dL Magnesium 2.5 H (1.6-2.3) mg/dL 03/22/23 03/22/23 03/22/23 Range/Units 04:15 05:25 05:33 WBC (3.8-10.6) k/uL RBC (4.30-5.90) m/uL Hgb (13.0-17.5) gm/dL Hct (39.0-53.0) % Neutrophils # (1.3-7.7) k/uL Lymphocytes # (1.0-4.8) k/uL APTT 53.5 H (22.0-30.0) sec ABG pH (7.35-7.45) ABG Total CO2 (19-24) mmol/L ABG O2 Saturation (94-97) % Sodium (137-145) mmol/L Chloride (98-107) mmol/L BUN (9-20) mg/dL Glucose (74-99) mg/dL POC Glucose (mg/dL) 194 H 208 H (70-110) mg/dL Calcium (8.4-10.2) mg/dL Ionized Calcium Osmin (4.5-5.3) mg/dL Phosphorus (2.5-4.5) mg/dL Magnesium (1.6-2.3) mg/dL 03/22/23 Range/Units 05:45 WBC (3.8-10.6) k/uL RBC (4.30-5.90) m/uL Hgb (13.0-17.5) gm/dL Hct (39.0-53.0) % Neutrophils # (1.3-7.7) k/uL Lymphocytes # (1.0-4.8) k/uL APTT (22.0-30.0) sec ABG pH 7.46 H (7.35-7.45) ABG Total CO2 26 H (19-24) mmol/L ABG O2 Saturation 98.1 H (94-97) % Sodium (137-145) mmol/L Chloride (98-107) mmol/L BUN (9-20) mg/dL Glucose (74-99) mg/dL POC Glucose (mg/dL) (70-110) mg/dL Calcium (8.4-10.2) mg/dL Ionized Calcium [place]min (4.5-5.3) mg/dL Phosphorus (2.5-4.5) mg/dL Magnesium (1.6-2.3) mg/dL Microbiology - Last 24 Hours (Table) 03/18/23 15:14 Blood Culture - Preliminary Blood 03/18/23 15:06 Blood Culture - Preliminary Blood 03/20/23 22:45 Gram Stain - Preliminary Gastric Aspirate Assessment and Plan Assessment: Impression: Acute hypoxic respiratory failure secondary to pneumonia, hospital-acquired pneumonia, possibly ARDS. Acute abdominal pain with small bowel obstruction/ileus, being addressed by surgery on the case, did not feel that the patient had a surgical abdomen. Acute sepsis, sources could be abdomen most likely and also the possibility of lung/pneumonia. Possible ARDS requiring intubation and mechanical ventilation from abdominal sepsis. Recent elective lumbosacral fusion and decompression 03/2023 with complicated postoperative course. Acute metabolic encephalopathy History of lymphoma and previous stem cell transplant. Being followed by oncology. Acute non-ST elevation myocardial infarction Paroxysmal atrial fibrillation Recommendation: Continue ventilatory support, sedation holiday to be given today and addressed mental status Continue nutritional support/TPN GI and DVT prophylaxis Continue heparin as per cardiology Continue Cardizem as per cardiology Continue antibiotics/broad-spectrum, patient is being followed by infectious disease Continue methylprednisolone. Titrate FiO2 down accordingly patient is down to 35% Continue close monitoring in the ICU Patient is critically ill, prognosis is guarded. We'll continue to follow. Critical care time is over 35 minutes Time with Patient: Greater than 30
[2023-03-22 11:58] LABS: Glucose,Whole Blood 210 mg/dL (70-110)
[2023-03-22] MEDS: HYDROmorphone 0.5 MG/0.5 ML SYRINGE IVP PRN (14:51)
[2023-03-22] MEDS ORDERED: MVI, ADULT NO.4 WITH VIT K 10 ML, TRACE (CONC-1ML/DOSE) 1 ML, CALCIUM GLUCONATE 1 GM, P... IV SCH ×6 (15:00)
--- NOTE | 2023-03-22 15:44 | P.PN ---
Subjective Progress Note Date: 03/22/23 Principal diagnosis: Postop fever Patient is a 67-year-old male electively admitted to the hospital 03/13/2023 in this patient who is s/p anterior lumbar interbody fusion L5-S1 insertion of interbody device with anterior approach patient did develop postop ileus and did have a new fever prompting infection disease consultation. Patient did have a worsening of his respiratory distress requiring transfer to the ICU and the patient was intubated morning of 03/20/2023 on today's evaluation that is 03/22/2023 patient is afebrile today, the patient remains to be intubated on the vent , FiO2 is down to 35%, no significant purulent secretions through the ET vomiting diarrhea or any other changes reported by the nursing staff Patient white count is slightly elevated at 14.4 today, creatinine is 1.09, blood cultures and sputum cultures currently pending chest x-ray with perihilar infiltrate with overall improvement Objective - Vital Signs Vital signs: Vital Signs Temp 98.0 F 03/22/23 12:00 Pulse 77 03/22/23 15:22 Resp 20 03/22/23 15:22 BP 135/82 03/22/23 04:00 Pulse Ox 98 03/22/23 15:00 FiO2 35 03/22/23 15:17 Intake & Output 03/21/23 03/22/23 03/22/23 18:59 06:59 18:59 Intake Total 1134.810 796.208 657.104 Output Total 2495 915 1250 Balance -1360.190 -118.792 -592.896 Weight 104.8 kg 106.5 kg Intake: IV 910 530 265 Cefepime 2 gm In Sodium 200 100 Chloride 0.9% 100 ml @ 25 mls/hr IVPB Q8HR [facility] Rx# :[id number] KVO 190 200 120 Mvi, Adult No.4 with Vit 120 330 30 K 10 ml Trace (Conc-1Ml/ Dose) 1 ml In Amino Acid 5%-D15w+Lytes*E* 1,000 ml @ 30 mls/hr IV .Q24H [facility] Rx#:[id number] Potassium Chloride 10 meq 200 In Water For Injection 1 100ml.bag @ 100 mls/hr IVPB Q1H [facility] Rx#: [id number] Pressure bags 15 metroNIDAZOLE-NS PMX 500 200 mg In Saline 1 100ml.bag @ 100 mls/hr IVPB Q8HR [facility] Rx#:[id number] Intake, IV Titration 224.810 266.208 242.104 Amount Diltiazem 125 mg In 8.667 Sodium Chloride 0.9% 100 ml @ 5 MG/HR 5 mls/hr IV .Q24H [facility] Rx#:[id number] Heparin Sod,Pork in 0.45% 116.143 NaCl 25,000 unit In 0.45 % NaCl 1 250ml.bag @ 9.4 UNITS/KG/HR 9.964 mls/hr IV .Q24H [facility] Rx#: [id number] propofoL 1,000 mg In 100.000 266.208 242.104 Empty Bag 1 bag @ 15 MCG/ KG/MIN 9.54 mls/hr IV . [id number] [facility] Rx#:[id number] TPN/PPN 150 Mvi, Adult No.4 with Vit 150 K 10 ml Trace (Conc-1Ml/ Dose) 1 ml In Amino Acid 5%-D15w+Lytes*E* 1,000 ml @ 30 mls/hr IV .Q24H [facility] Rx#:[id number] Output: Urine 2495 915 1250 Other: Voiding Method Indwelling Catheter Indwelling Catheter Indwelling Catheter ABP, PAP, CO, CI - Last Documented Arterial Blood Pressure 163/67 - Exam GENERAL DESCRIPTION: An elderly male intubated on the vent RESPIRATORY SYSTEM: Unlabored breathing , decreased breath sounds at bases HEART: S1 S2 regular rate and rhythm , ABDOMEN: Soft , no tenderness EXTREMITIES: No edema feet - Labs CBC & Chem 7: 03/22/23 04:15 03/22/23 04:15 Labs: Abnormal Lab Results - Last 24 Hours (Table) 03/21/23 03/21/23 03/22/23 Range/Units 17:56 23:35 00:51 WBC (3.8-10.6) k/uL RBC (4.30-5.90) m/uL Hgb (13.0-17.5) gm/dL Hct (39.0-53.0) % Neutrophils # (1.3-7.7) k/uL Lymphocytes # (1.0-4.8) k/uL APTT (22.0-30.0) sec ABG pH (7.35-7.45) ABG Total CO2 (19-24) mmol/L ABG O2 Saturation (94-97) % Sodium (137-145) mmol/L Chloride (98-107) mmol/L BUN (9-20) mg/dL Glucose (74-99) mg/dL POC Glucose (mg/dL) 194 H 203 H 224 H (70-110) mg/dL Calcium (8.4-10.2) mg/dL Ionized Calcium Osmin (4.5-5.3) mg/dL Magnesium (1.6-2.3) mg/dL Triglycerides (0.00-149.00) mg/dL 03/22/23 03/22/23 03/22/23 Range/Units 04:15 04:15 04:15 WBC 14.4 H (3.8-10.6) k/uL RBC 3.49 L (4.30-5.90) m/uL Hgb 10.6 L (13.0-17.5) gm/dL Hct 32.6 L (39.0-53.0) % Neutrophils # 13.5 H (1.3-7.7) k/uL Lymphocytes # 0.3 L (1.0-4.8) k/uL APTT (22.0-30.0) sec ABG pH (7.35-7.45) ABG Total CO2 (19-24) mmol/L ABG O2 Saturation (94-97) % Sodium 146 H (137-145) mmol/L Chloride 117 H (98-107) mmol/L BUN 39 H (9-20) mg/dL Glucose 201 H (74-99) mg/dL POC Glucose (mg/dL) (70-110) mg/dL Calcium 7.5 L (8.4-10.2) mg/dL Ionized Calcium Osmin 4.3 L (4.5-5.3) mg/dL Magnesium 2.5 H (1.6-2.3) mg/dL Triglycerides 183.00 H (0.00-149.00) mg/dL 03/22/23 03/22/23 03/22/23 Range/Units 04:15 05:25 05:33 WBC (3.8-10.6) k/uL RBC (4.30-5.90) m/uL Hgb (13.0-17.5) gm/dL Hct (39.0-53.0) % Neutrophils # (1.3-7.7) k/uL Lymphocytes # (1.0-4.8) k/uL APTT 53.5 H (22.0-30.0) sec ABG pH (7.35-7.45) ABG Total CO2 (19-24) mmol/L ABG O2 Saturation (94-97) % Sodium (137-145) mmol/L Chloride (98-107) mmol/L BUN (9-20) mg/dL Glucose (74-99) mg/dL POC Glucose (mg/dL) 194 H 208 H (70-110) mg/dL Calcium (8.4-10.2) mg/dL Ionized Calcium Osmin (4.5-5.3) mg/dL Magnesium (1.6-2.3) mg/dL Triglycerides (0.00-149.00) mg/dL 03/22/23 03/22/23 Range/Units 05:45 11:56 WBC (3.8-10.6) k/uL RBC (4.30-5.90) m/uL Hgb (13.0-17.5) gm/dL Hct (39.0-53.0) % Neutrophils # (1.3-7.7) k/uL Lymphocytes # (1.0-4.8) k/uL APTT (22.0-30.0) sec ABG pH 7.46 H (7.35-7.45) ABG Total CO2 26 H (19-24) mmol/L ABG O2 Saturation 98.1 H (94-97) % Sodium (137-145) mmol/L Chloride (98-107) mmol/L BUN (9-20) mg/dL Glucose (74-99) mg/dL POC Glucose (mg/dL) 210 H (70-110) mg/dL Calcium (8.4-10.2) mg/dL Ionized Calcium Osmin (4.5-5.3) mg/dL Magnesium (1.6-2.3) mg/dL Triglycerides (0.00-149.00) mg/dL Microbiology - Last 24 Hours (Table) 03/18/23 15:14 Blood Culture - Preliminary Blood 03/18/23 15:06 Blood Culture - Preliminary Blood 03/20/23 22:45 Gram Stain - Preliminary Gastric Aspirate Assessment and Plan (1) Sepsis Current Visit: Yes Status: Acute Code(s): A41.9 - SEPSIS, UNSPECIFIED ORGANISM SNOMED Code(s): 94870471 Plan: 1patient with a postop fever in this patient with extensive surgery requiring anterior lumbar interbody fusion L5-S1 and insertion of interbody device developing a postop ileus now low-grade fever and tachycardia possible abdominal source however no significant tenderness was noticed on abdominal Examination,, patient did have a negative UA chest x-ray did shows mild strandy atelectasis lower lungs patient did have a CT abdominal pelvis Did show some inflammatory changes in the left lower quadrant and tiny air no mention of any abscess or perforation 2-blood culture currently pending CRP is elevated and procalcitonin is normal at 0.09 3-patient fever source possible intra-abdominal with recent surgery versus ne uroleptic malignant syndrome, the patient Reglan has been discontinued , The patient cultures are so far negative and patient did have resolution of his fever 4-we will continue the patient on cefepime and Flagyl , however with no MRSA grown in the culture discontinue vancomycin to decrease risk of nephrotoxicity Dictation was produced using [employer] dictation software. please excuse any grammatical, word or spelling errors. Time with Patient: Less than 30
[2023-03-22 17:39] LABS: Glucose,Whole Blood 205 mg/dL (70-110)
[2023-03-22 17:57] LABS: Glucose,Whole Blood 220 mg/dL (70-110)
[2023-03-23 00:08] LABS: Glucose,Whole Blood 222 mg/dL (70-110)
[2023-03-23] MEDS: metroNIDAZOLE-NS PMX 500 MG in SALINE 1 100ML.BAG IVPB SCH ×3 (00:21→15:54)
[2023-03-23] MEDS: INSULIN ASPART (NovoLOG) 100 UNIT/ML VIAL SQ SCH ×4 (00:22→18:55)
[2023-03-23] MEDS: CEFEPIME 2 GM in SODIUM CHLORIDE 0.9% 100 ML IVPB SCH ×3 (00:22→15:54)
[2023-03-23] MEDS: METOPROLOL TARTRATE 5 MG/5 ML VIAL IVP SCH ×5 (00:22→23:16)
[2023-03-23] MEDS: methylPREDNISolone SOD SUCCI 40 MG/ML 1 ML VIAL IV SCH ×2 (00:22→08:50)
[2023-03-23] MEDS: IPRATROPIUM-ALBUTEROL 3 ML NEB INHALATION PRN ×5 (00:25→20:33)
[2023-03-23 04:42] LABS: Basophils % (A) 0 %; Eosinophils % (A) 0 %; HCT 33.2 % (39.0-53.0); HGB 10.5 gm/dL (13.0-17.5); Hypochromasia Slight; Lymphocytes # (A) 0.3 k/uL (1.0-4.8); Lymphocytes % (A) 3 %; MCH 30.2 pg (25.0-35.0); MCHC 31.5 g/dL (31.0-37.0); MCV 95.8 fL (80.0-100.0); Mean Platelet Volume 8.7; Monocytes # (A) 0.2 k/uL (0-1.0); Monocytes % (A) 2 %; Neutrophils # (A) 12.4 k/uL (1.3-7.7); Neutrophils % (A) 95 %; Platelet Count 264 k/uL (150-450); RBC 3.46 m/uL (4.30-5.90); RDW 15.7 % (11.5-15.5); WBC 13.1 k/uL (3.8-10.6)
[2023-03-23 04:59] LABS: African American GFR (CKD) 86 (>60 ml/min/1.73 sqM); Magnesium 2.7 mg/dL (1.6-2.3); Non-African American GFR(CKD) 74 (>60 ml/min/1.73 sqM); Phosphorus 3.8 mg/dL (2.5-4.5)
[2023-03-23] MEDS ORDERED: VANCOMYCIN TROUGH DUE 1 EACH MISC MISCELLANE ONE (05:00)
[2023-03-23 05:09] LABS: African American GFR (CKD) 87 (>60 ml/min/1.73 sqM); Anion Gap 6 mmol/L; Blood Urea Nitrogen 41 mg/dL (9-20); Calcium 7.3 mg/dL (8.4-10.2); Carbon Dioxide 22 mmol/L (22-30); Chloride 119 mmol/L (98-107); Glucose 220 mg/dL (74-99); Non-African American GFR(CKD) 75 (>60 ml/min/1.73 sqM); Potassium 4.1 mmol/L (3.5-5.1); Sodium 147 mmol/L (137-145)
[2023-03-23 05:41] LABS: Glucose,Whole Blood 222 mg/dL (70-110)
[2023-03-23 06:30] LABS: ABG Base Excess -1.1 mmol/L; ABG HCO3 23 mmol/L (21-25); ABG Oxygen Saturation 97.9 % (94-97); ABG PCO2 34 mmHg (35-45); ABG PH 7.44 (7.35-7.45); ABG PO2 105 mmHg (83-108); ABG TCO2 24 mmol/L (19-24); Allen Test Performed? Yes
--- NOTE | 2023-03-23 08:15 | P.PN ---
Subjective Progress Note Date: 03/23/23 Principal diagnosis: Atrial flutter The patient is a 67-year-old gentleman who was admitted to the hospital and underwent an L5-S1 fusion complicated by ileus and subsequently we involved in the care of the patient because of paroxysmal atrial fibrillation/atrial flutter and also elevated troponin. The echo revealed mildly impaired LV function with EF around 45% was mild valvular pathology. 2022 The patient was seen and evaluated this morning. He continues to be intubated on mechanical ventilation. He continues to be nothing by mouth. Hemodynamically he is stable. Currently he is on Cardizem IV as well as heparin IV as well as metoprolol IV. We will continue the current medical regimen until the patient is not nothing by mouth anymore then at that point we will switch the patient into oral medication. I believe coronary angiogram need to be done to rule out severe CAD 1 sedation has better recovery. Currently no indication of any hemodynamic instability. He is maintaining normal sinus mechanism. Assessment Status post L5 to S1 fusion Ileus Paroxysmal atrial fibrillation/flutter Acute non-ST elevation myocardial infarction Mild cardiomyopathy Plan Continue the current medical regimen Switch the patient into oral medication once he is not nothing by mouth anymore Follow-up with the patient Objective - Vital Signs Vital signs: Vital Signs Temp 98.7 F 03/23/23 04:00 Pulse 80 03/23/23 07:53 Resp 20 03/23/23 07:00 BP 148/85 03/23/23 07:00 Pulse Ox 98 03/23/23 07:00 FiO2 35 03/23/23 07:42 Intake & Output 03/22/23 03/23/23 03/23/23 18:59 06:59 18:59 Intake Total 6897.657 7472 326 Output Total 1550 1270 225 Balance -291.912 196 101 Weight 104.1 kg Intake: IV 534 436 246 Cefepime 2 gm In Sodium 200 100 100 Chloride 0.9% 100 ml @ 25 mls/hr IVPB Q8HR [facility] Rx# :[id number] KVO 180 200 40 Mvi, Adult No.4 with Vit 30 K 10 ml Trace (Conc-1Ml/ Dose) 1 ml In Amino Acid 5%-D15w+Lytes*E* 1,000 ml @ 30 mls/hr IV .Q24H [facility] Rx#:[id number] Pressure bags 24 36 6 metroNIDAZOLE-NS PMX 500 100 100 100 mg In Saline 1 100ml.bag @ 100 mls/hr IVPB Q8HR [facility] Rx#:[id number] Intake, IV Titration 464.088 550 Amount Heparin Sod,Pork in 0.45% 250 NaCl 25,000 unit In 0.45 % NaCl 1 250ml.bag @ 9.4 UNITS/KG/HR 9.964 mls/hr IV .Q24H [facility] Rx#: [id number] Potassium Chloride 10 meq 200 In Water For Injection 1 100ml.bag @ 100 mls/hr IVPB Q1H [facility] Rx#: [id number] propofoL 1,000 mg In 264.088 300 Empty Bag 1 bag @ 15 MCG/ KG/MIN 9.54 mls/hr IV . [id number] [facility] Rx#:[id number] TPN/PPN 260 480 80 Mvi, Adult No.4 with Vit 260 480 80 K 10 ml Trace (Conc-1Ml/ Dose) 1 ml In Amino Acid 5%-D15w+Lytes*E* 1,000 ml @ 30 mls/hr IV .Q24H [facility] Rx#:[id number] Output: Urine 1550 1270 225 Other: Voiding Method Indwelling Catheter Indwelling Catheter ABP, PAP, CO, CI - Last Documented Arterial Blood Pressure 177/71 - Labs CBC & Chem 7: 03/23/23 03:46 03/23/23 03:46 Labs: Abnormal Lab Results - Last 24 Hours (Table) 03/22/23 03/22/23 03/22/23 Range/Units 04:15 11:56 17:36 WBC (3.8-10.6) k/uL RBC (4.30-5.90) m/uL Hgb (13.0-17.5) gm/dL Hct (39.0-53.0) % RDW (11.5-15.5) % Neutrophils # (1.3-7.7) k/uL Lymphocytes # (1.0-4.8) k/uL APTT (22.0-30.0) sec ABG pCO2 (35-45) mmHg ABG O2 Saturation (94-97) % Sodium (137-145) mmol/L Chloride (98-107) mmol/L BUN (9-20) mg/dL Glucose (74-99) mg/dL POC Glucose (mg/dL) 210 H 205 H (70-110) mg/dL Calcium (8.4-10.2) mg/dL Magnesium (1.6-2.3) mg/dL Triglycerides 183.00 H (0.00-149.00) mg/dL 03/22/23 03/23/23 03/23/23 Range/Units 17:55 00:06 03:46 WBC (3.8-10.6) k/uL RBC (4.30-5.90) m/uL Hgb (13.0-17.5) gm/dL Hct (39.0-53.0) % RDW (11.5-15.5) % Neutrophils # (1.3-7.7) k/uL Lymphocytes # (1.0-4.8) k/uL APTT 60.9 H (22.0-30.0) sec ABG pCO2 (35-45) mmHg ABG O2 Saturation (94-97) % Sodium (137-145) mmol/L Chloride (98-107) mmol/L BUN (9-20) mg/dL Glucose (74-99) mg/dL POC Glucose (mg/dL) 220 H 222 H (70-110) mg/dL Calcium (8.4-10.2) mg/dL Magnesium (1.6-2.3) mg/dL Triglycerides (0.00-149.00) mg/dL 03/23/23 03/23/23 03/23/23 Range/Units 03:46 03:46 03:46 WBC 13.1 H (3.8-10.6) k/uL RBC 3.46 L (4.30-5.90) m/uL Hgb 10.5 L (13.0-17.5) gm/dL Hct 33.2 L (39.0-53.0) % RDW 15.7 H (11.5-15.5) % Neutrophils # 12.4 H (1.3-7.7) k/uL Lymphocytes # 0.3 L (1.0-4.8) k/uL APTT (22.0-30.0) sec ABG pCO2 (35-45) mmHg ABG O2 Saturation (94-97) % Sodium 147 H (137-145) mmol/L Chloride 119 H (98-107) mmol/L BUN 41 H (9-20) mg/dL Glucose 220 H (74-99) mg/dL POC Glucose (mg/dL) (70-110) mg/dL Calcium 7.3 L (8.4-10.2) mg/dL Magnesium 2.7 H (1.6-2.3) mg/dL Triglycerides (0.00-149.00) mg/dL 03/23/23 03/23/23 Range/Units 05:39 06:25 WBC (3.8-10.6) k/uL RBC (4.30-5.90) m/uL Hgb (13.0-17.5) gm/dL Hct (39.0-53.0) % RDW (11.5-15.5) % Neutrophils # (1.3-7.7) k/uL Lymphocytes # (1.0-4.8) k/uL APTT (22.0-30.0) sec ABG pCO2 34 L (35-45) mmHg ABG O2 Saturation 97.9 H (94-97) % Sodium (137-145) mmol/L Chloride (98-107) mmol/L BUN (9-20) mg/dL Glucose (74-99) mg/dL POC Glucose (mg/dL) 222 H (70-110) mg/dL Calcium (8.4-10.2) mg/dL Magnesium (1.6-2.3) mg/dL Triglycerides (0.00-149.00) mg/dL
--- NOTE | 2023-03-23 08:40 | P.PN ---
Subjective Progress Note Date: 03/23/23 Principal diagnosis: L5-S1 grade 2 spondylolisthesis L4 S1 spondylosis lower extremity radiculopathy Patient seen and examined this morning in ICU. Patient continues to be resting comfortably on [facility] vent, current vent settings PEEP 5, FIO2 50%. Patient is under light sedation, wrist restraints are present to protect tubing and lines. Chest xray taken this morning, results pending. Respiratory therapist in room and stated that patient lungs sounds were course throughout. Patient O2 sat is 97%. VSS. Anterior abdominal surgical dressing and Posterior paralumbar surgical dressing are CDI. PT to continue with ROM exercises as tolerated. Objective - Vital Signs Vital signs: Vital Signs Temp 98.7 F 03/23/23 04:00 Pulse 80 03/23/23 07:53 Resp 20 03/23/23 07:00 BP 148/85 03/23/23 07:00 Pulse Ox 98 03/23/23 07:00 FiO2 35 03/23/23 07:42 Intake & Output 03/22/23 03/23/23 03/23/23 18:59 06:59 18:59 Intake Total 0710.579 6145 63 Output Total 1550 1270 75 Balance -291.912 196 -12 Weight 104.1 kg Intake: IV 534 436 23 Cefepime 2 gm In Sodium 200 100 Chloride 0.9% 100 ml @ 25 mls/hr IVPB Q8HR [facility] Rx# :[id number] KVO 180 200 20 Mvi, Adult No.4 with Vit 30 K 10 ml Trace (Conc-1Ml/ Dose) 1 ml In Amino Acid 5%-D15w+Lytes*E* 1,000 ml @ 30 mls/hr IV .Q24H [facility] Rx#:[id number] Pressure bags 24 36 3 metroNIDAZOLE-NS PMX 500 100 100 mg In Saline 1 100ml.bag @ 100 mls/hr IVPB Q8HR [facility] Rx#:[id number] Intake, IV Titration 464.088 550 Amount Heparin Sod,Pork in 0.45% 250 NaCl 25,000 unit In 0.45 % NaCl 1 250ml.bag @ 9.4 UNITS/KG/HR 9.964 mls/hr IV .Q24H [facility] Rx#: [id number] Potassium Chloride 10 meq 200 In Water For Injection 1 100ml.bag @ 100 mls/hr IVPB Q1H [facility] Rx#: [id number] propofoL 1,000 mg In 264.088 300 Empty Bag 1 bag @ 15 MCG/ KG/MIN 9.54 mls/hr IV . [id number] [facility] Rx#:[id number] TPN/PPN 260 480 40 Mvi, Adult No.4 with Vit 260 480 40 K 10 ml Trace (Conc-1Ml/ Dose) 1 ml In Amino Acid 5%-D15w+Lytes*E* 1,000 ml @ 30 mls/hr IV .Q24H [facility] Rx#:[id number] Output: Urine 1550 1270 75 Other: Voiding Method Indwelling Catheter Indwelling Catheter ABP, PAP, CO, CI - Last Documented Arterial Blood Pressure 171/73 - Exam Physical Examination General: Resting comfortable on Mechanical vent PEEP 5, FIO2 35% Integumentary: Surgical dressing to the anterior, lower midline abdomen is CDI, Posterior, paralumbar surgical dressings, CDI. - Labs CBC & Chem 7: 03/23/23 03:46 03/23/23 03:46 Labs: Abnormal Lab Results - Last 24 Hours (Table) 03/22/23 03/22/23 03/22/23 Range/Units 04:15 11:56 17:36 WBC (3.8-10.6) k/uL RBC (4.30-5.90) m/uL Hgb (13.0-17.5) gm/dL Hct (39.0-53.0) % RDW (11.5-15.5) % Neutrophils # (1.3-7.7) k/uL Lymphocytes # (1.0-4.8) k/uL APTT (22.0-30.0) sec ABG pCO2 (35-45) mmHg ABG O2 Saturation (94-97) % Sodium (137-145) mmol/L Chloride (98-107) mmol/L BUN (9-20) mg/dL Glucose (74-99) mg/dL POC Glucose (mg/dL) 210 H 205 H (70-110) mg/dL Calcium (8.4-10.2) mg/dL Magnesium (1.6-2.3) mg/dL Triglycerides 183.00 H (0.00-149.00) mg/dL 08/03/23/23 03/23/23 Range/Units 17:55 00:06 03:46 WBC (3.8-10.6) k/uL RBC (4.30-5.90) m/uL Hgb (13.0-17.5) gm/dL Hct (39.0-53.0) % RDW (11.5-15.5) % Neutrophils # (1.3-7.7) k/uL Lymphocytes # (1.0-4.8) k/uL APTT 60.9 H (22.0-30.0) sec ABG pCO2 (35-45) mmHg ABG O2 Saturation (94-97) % Sodium (137-145) mmol/L Chloride (98-107) mmol/L BUN (9-20) mg/dL Glucose (74-99) mg/dL POC Glucose (mg/dL) 220 H 222 H (70-110) mg/dL Calcium (8.4-10.2) mg/dL Magnesium (1.6-2.3) mg/dL Triglycerides (0.00-149.00) mg/dL 03/23/23 03/23/23 03/23/23 Range/Units 03:46 03:46 03:46 WBC 13.1 H (3.8-10.6) k/uL RBC 3.46 L (4.30-5.90) m/uL Hgb 10.5 L (13.0-17.5) gm/dL Hct 33.2 L (39.0-53.0) % RDW 15.7 H (11.5-15.5) % Neutrophils # 12.4 H (1.3-7.7) k/uL Lymphocytes # 0.3 L (1.0-4.8) k/uL APTT (22.0-30.0) sec ABG pCO2 (35-45) mmHg ABG O2 Saturation (94-97) % Sodium 147 H (137-145) mmol/L Chloride 119 H (98-107) mmol/L BUN 41 H (9-20) mg/dL Glucose 220 H (74-99) mg/dL POC Glucose (mg/dL) (70-110) mg/dL Calcium 7.3 L (8.4-10.2) mg/dL Magnesium 2.7 H (1.6-2.3) mg/dL Triglycerides (0.00-149.00) mg/dL 03/23/23 03/23/23 Range/Units 05:39 06:25 WBC (3.8-10.6) k/uL RBC (4.30-5.90) m/uL Hgb (13.0-17.5) gm/dL Hct (39.0-53.0) % RDW (11.5-15.5) % Neutrophils # (1.3-7.7) k/uL Lymphocytes # (1.0-4.8) k/uL APTT (22.0-30.0) sec ABG pCO2 34 L (35-45) mmHg ABG O2 Saturation 97.9 H (94-97) % Sodium (137-145) mmol/L Chloride (98-107) mmol/L BUN (9-20) mg/dL Glucose (74-99) mg/dL POC Glucose (mg/dL) 222 H (70-110) mg/dL Calcium (8.4-10.2) mg/dL Magnesium (1.6-2.3) mg/dL Triglycerides (0.00-149.00) mg/dL Assessment and Plan Assessment: Postop day 10: Part I: L5-S1 ALIF with Part II: L4-S1 posteriolateral and interbody fusion. Sepsis presentation, new Hospital-acquired pneumonia Post-Op Illeus resolving Lumbar spondylolithesis Plan: -Appreciate websphere consultant and team management. -Activity: Perform ROM exercises of bilateral upper and lower extremities as tolerated while patient is on vent. -Pain control: Adequate at this time -Meds: reviewed -GI ppx: senna -Maintain dennis and continue to record output every shift -DVT PPX: Heparin, currently on hold due to elevated ATTP -Hygiene: Maintain dressing clean and dry. Meticulous cleaning after BMs away from the incision site -Dispo: Clinically pending *I reviewed and discussed this case with my attending Dr. Villa, whom has reviewed this chart and films and is in agreement with assessment and plan of care as outlined above. I have personally seen and examined the patient, performed the documentation and the assessment and plan as written. Number of minutes spent on the visit: 20m.
[2023-03-23] MEDS: PANTOPRAZOLE 40 MG/10 ML VIAL IVP SCH (08:51)
[2023-03-23] MEDS: CHLORHEXIDINE GLUCONATE 15 ML CUP MUCOUS MEM SCH (08:51)
[2023-03-23] MEDS: HYDROmorphone 0.5 MG/0.5 ML SYRINGE IVP PRN ×4 (08:51→23:05)
[2023-03-23] MEDS: GABAPENTIN 300 MG CAP PO SCH ×3 (08:52→20:22)
[2023-03-23] MEDS: LEVOTHYROXINE IVP 100 MCG/5 ML VIAL IV SCH (08:52)
[2023-03-23] MEDS: SIMETHICONE 40 MG/0.6 ML DROPS 2,000 MG/30 ML BOTTLE PO SCH ×3 (08:53→20:22)
[2023-03-23] MEDS: DILTIAZEM 125 MG in SODIUM CHLORIDE 0.9% 100 ML IV SCH (09:08)
--- NOTE | 2023-03-23 10:03 | XR ---
EXAMINATION TYPE: XR chest 1V portable DATE OF EXAM: 03/23/2023 COMPARISON: 03/22/2023 HISTORY: Shortness of breath TECHNIQUE: Single frontal view of the chest is obtained. FINDINGS: Osseous structures are stable. There is bilateral consolidation and small effusion greater on the left. No overt failure. No pneumothorax. Central line\Mediport appears coiled with the tip is overlying the SVC. ET and NG tubes stable. IMPRESSION: Stable bilateral infiltrates and small effusions greater on the left
[2023-03-23] MEDS ORDERED: LABETALOL 5 MG/ML VIAL MDV IVP PRN (10:26)
--- NOTE | 2023-03-23 10:51 | P.PN ---
Subjective Progress Note Date: 03/23/23 Principal diagnosis: Respiratory failure. Acute hypoxic respiratory failure, abdominal sepsis, pneumonia This is a 67-year-old white male, known to have history of lymphoma with stem cell transplant, initially admitted on 03/2023. Patient was admitted with lower extremities numbness and low back pain, underwent anterior retroperitoneal exposure performed by Dr. beckford,, he also underwent anterior lumbar interbody fusion L5-S1 insertion of interbody device, posterior lateral and interbody fusion L4-L5, posterior lateral instrumented fusion L5-S1, laminoforaminotomy for decompression and cage placement L4-L5, use of [employer] navigation for screw placement. His immediate postoperative course was uneventful, on 03/15/2023, patient was seen by cardiology for him than as stated the elevated myocardial infarction and he was seen by many other consultants including general surgery for small bowel obstruction/ileus. Cardiology recommended heparin, and general surgery recommended treatment with the Reglan and simethicone. Over the last 1 week, patient has been gradually getting worse, and he has been developing over the last 2 days worsening shortness of breath. Patient was placed on multiple antibiotics, broad-spectrum antibiotics after he was seen by infectious disease on 03/18/2023, patient was treated for presumptive abdominal sepsis and possible pneumonia. Cultures have been negative/mostly blood cultures and no other cultures were sent. Patient has been receiving cefepime, vancomycin, and Flagyl. Chest x-ray on 03/18/2023 showed minimal basilar atelectasis is no clear- cut evidence of infiltrate however chest x-ray on 03/19/2023 showed infiltrates involving the left lower lobe, left midlung, and the right lower lobe. Clearly the patient developed significant airspace disease while inpatient. While on the medical floor, patient was complaining of abdominal pain and distention, CT abdomen done yesterday showed inflammatory changes in the left lower quadrant extending towards the inguinal region and small tiny amount of free air which was evaluated by general surgery and felt this is most likely related to his recent retroperitoneal approach/surgery. Yesterday I was notified about this patient having worsening shortness of breath, hypoxia, tachycardia, and hypertension. I recommended transferring the patient to the ICU and a few hours after he was in the ICU, he continued to do poorly early this morning the patient had to be intubated and placed on mechanical ventilation. He is now on tidal volume of 500 assist control rate 20 FiO2 50% and PEEP of 5. ABG post intubation showed a pO2 of 231 pCO2 42 pH of 7.38. Hence FiO2 was cut down to 50%. WBC count is 12.8 hemoglobin is 11.1, basic metabolic profile is normal except for potassium of 3.4 BUN is 22 creatinine 1.11. Chest x-ray clearly shows bilateral air space disease consistent with pneumonia or possibly ARDS patient is now on propofol at 45 mcg/kg/m his IV fluid is a 100 mL an hour in the form of 0.9 normal saline, his also on Cardizem drip. Patient was reevaluated today on 03/21/2023, remains in the ICU intubated and mechanically ventilated. He is on assist control rate of 20 tidal volume 500 FiO2 50% and PEEP of 5. His ABG showed a pO2 of 100 pCO2 36 pH of 7.46, FiO2 was cut down to 45%. Patient remains on Cardizem drip at 10 mg per hour and I cut it down to 5 he is on propofol at 45 mcg/kg/m he is also on heparin as per cardiology. Antibiotics moreno patient is receiving vancomycin and Flagyl. TPN to be started today, and again I will cut down his Cardizem to 5 mg per hour. On lower sedation, the patient seems to be comprehending, and he follows simple instructions. Chest x-ray continues to show significant infiltrate in the left lower lobe and right lower lobe, hence I don't believe the patient is quite ready for weaning and extubation at this point in time. WBC count is 12.4 hemoglobin is 10.6, PTT is 88. Electronic for normal renal profile is normal blood sugar is 163 Reevaluated today on 03/22/2023, patient remains in the ICU intubated and mechanically ventilated sedated on propofol at 40 mcg/kg/m remains on Cardizem at 5 mg per hour remains on heparin as per cardiology. He is on assist control rate of 20, tidal volume 500 FiO2 40% PEEP of 5. ABG showed a pO2 of 103 pCO2 36 pH of 7.46, hence I cut down the FiO2 to 35%. Patient is also on TPN at 50 mL per hour. His chest x-ray is showing slight improvement in his infiltrate nonetheless continues to have significant consolidation in the left lower lobe, his right-sided pneumonia seems to be improving. Today the plan is to start addressing her mental status off sedation and decide whether the patient could be considered for weaning in the next 24 hours. Sedation holiday will be given today, and only assessment of mental status to be done today. WBC count remains at the time at 14.4 hemoglobin is 10.6 PTT is 53. Electrolytes are normal except for slightly elevated sodium of 146 and the rest of the labs are unremarkable. Progress note dated 03/23/2023. 67-year-old male who was admitted back on March 13. The patient is currently in the intensive care unit, being admitted there on March 19, and intubated on March 20. He remains on the mechanical ventilator. The patient is on volume assist control, rate 20, tidal volume 500, FiO2 35%, with a PEEP of 5. Blood gases show pO2 of 105, pCO2 34, and pH is 7.4. The patient is currently on saline at 20 mL an hour, a Cardizem drip at 5 mg an hour, peripheral parenteral nutrition at 40 mL an hour, and heparin via weightbase protocol. White count is 13.1, hemoglobin 10.5, hematocrit 33.2, and a platelet count 264,000. Sodium 147, potassium 4.1, chlorides 119, CO2 22, anion gap 6, BUN 41, and creatinine 1.02. Blood cultures have been negative. Gastric aspirate was positive for staph aureus. Chest x-ray shows stable bilateral consolidations and small effusions. Objective - Vital Signs Vital signs: Vital Signs Temp 98.8 F 03/23/23 08:00 Pulse 95 03/23/23 09:00 Resp 14 03/23/23 09:00 BP 173/102 03/23/23 09:00 Pulse Ox 98 03/23/23 09:00 FiO2 35 03/23/23 08:00 Intake & Output 03/22/23 03/23/23 03/23/23 18:59 06:59 18:59 Intake Total 4869.982 1319 369 Output Total 1550 1270 375 Balance -175.579 196 -6 Weight 104.1 kg Intake: IV 534 436 249 Cefepime 2 gm In Sodium 200 100 100 Chloride 0.9% 100 ml @ 25 mls/hr IVPB Q8HR [facility] Rx# :[id number] KVO 180 200 40 Mvi, Adult No.4 with Vit 30 K 10 ml Trace (Conc-1Ml/ Dose) 1 ml In Amino Acid 5%-D15w+Lytes*E* 1,000 ml @ 30 mls/hr IV .Q24H [facility] Rx#:[id number] Pressure bags 24 36 9 metroNIDAZOLE-NS PMX 500 100 100 100 mg In Saline 1 100ml.bag @ 100 mls/hr IVPB Q8HR [facility] Rx#:[id number] Intake, IV Titration 580.421 550 Amount Diltiazem 125 mg In 116.333 Sodium Chloride 0.9% 100 ml @ 5 MG/HR 5 mls/hr IV .Q24H [facility] Rx#:[id number] Heparin Sod,Pork in 0.45% 250 NaCl 25,000 unit In 0.45 % NaCl 1 250ml.bag @ 9.4 UNITS/KG/HR 9.964 mls/hr IV .Q24H [facility] Rx#: [id number] Potassium Chloride 10 meq 200 In Water For Injection 1 100ml.bag @ 100 mls/hr IVPB Q1H [facility] Rx#: [id number] propofoL 1,000 mg In 264.088 300 Empty Bag 1 bag @ 15 MCG/ KG/MIN 9.54 mls/hr IV . [id number] [facility] Rx#:[id number] TPN/PPN 260 480 120 Mvi, Adult No.4 with Vit 260 480 120 K 10 ml Trace (Conc-1Ml/ Dose) 1 ml In Amino Acid 5%-D15w+Lytes*E* 1,000 ml @ 30 mls/hr IV .Q24H [facility] Rx#:[id number] Output: Urine 1550 1270 375 Other: Voiding Method Indwelling Catheter Indwelling Catheter Indwelling Catheter ABP, PAP, CO, CI - Last Documented Arterial Blood Pressure 209/87 - Exam No acute distress, sedated, with an orally placed endotracheal tube and NG tube. HEENT examination is grossly unremarkable. Neck supple. Full range of motion. No adenopathy thyromegaly or neck vein distention. Cardiovascular examination reveals regular rhythm rate. S1-S2 normal. No S3 or S4. No discernible murmur noted. Heart sounds are distant. Heart rate 95 bpm. Lungs reveal scattered bilateral rhonchi. No wheezes or crackles. Breath sounds are equal bilaterally. Saturations are 99%. Abdomen soft with bowel sounds. No masses or tenderness. Extremities are intact. No cyanosis clubbing or edema. Skin is without rash or lesion. Neurologic examination cannot be adequately assessed. - Labs CBC & Chem 7: 03/23/23 03:46 03/23/23 03:46 Labs: Abnormal Lab Results - Last 24 Hours (Table) 03/22/23 03/22/23 03/22/23 Range/Units 04:15 11:56 17:36 WBC (3.8-10.6) k/uL RBC (4.30-5.90) m/uL Hgb (13.0-17.5) gm/dL Hct (39.0-53.0) % RDW (11.5-15.5) % Neutrophils # (1.3-7.7) k/uL Lymphocytes # (1.0-4.8) k/uL APTT (22.0-30.0) sec ABG pCO2 (35-45) mmHg ABG O2 Saturation (94-97) % Sodium (137-145) mmol/L Chloride (98-107) mmol/L BUN (9-20) mg/dL Glucose (74-99) mg/dL POC Glucose (mg/dL) 210 H 205 H (70-110) mg/dL Calcium (8.4-10.2) mg/dL Magnesium (1.6-2.3) mg/dL Triglycerides 183.00 H (0.00-149.00) mg/dL 03/22/23 03/23/23 03/23/23 Range/Units 17:55 00:06 03:46 WBC (3.8-10.6) k/uL RBC (4.30-5.90) m/uL Hgb (13.0-17.5) gm/dL Hct (39.0-53.0) % RDW (11.5-15.5) % Neutrophils # (1.3-7.7) k/uL Lymphocytes # (1.0-4.8) k/uL APTT 60.9 H (22.0-30.0) sec ABG pCO2 (35-45) mmHg ABG O2 Saturation (94-97) % Sodium (137-145) mmol/L Chloride (98-107) mmol/L BUN (9-20) mg/dL Glucose (74-99) mg/dL POC Glucose (mg/dL) 220 H 222 H (70-110) mg/dL Calcium (8.4-10.2) mg/dL Magnesium (1.6-2.3) mg/dL Triglycerides (0.00-149.00) mg/dL 03/23/23 03/23/23 03/23/23 Range/Units 03:46 03:46 03:46 WBC 13.1 H (3.8-10.6) k/uL RBC 3.46 L (4.30-5.90) m/uL Hgb 10.5 L (13.0-17.5) gm/dL Hct 33.2 L (39.0-53.0) % RDW 15.7 H (11.5-15.5) % Neutrophils # 12.4 H (1.3-7.7) k/uL Lymphocytes # 0.3 L (1.0-4.8) k/uL APTT (22.0-30.0) sec ABG pCO2 (35-45) mmHg ABG O2 Saturation (94-97) % Sodium 147 H (137-145) mmol/L Chloride 119 H (98-107) mmol/L BUN 41 H (9-20) mg/dL Glucose 220 H (74-99) mg/dL POC Glucose (mg/dL) (70-110) mg/dL Calcium 7.3 L (8.4-10.2) mg/dL Magnesium 2.7 H (1.6-2.3) mg/dL Triglycerides (0.00-149.00) mg/dL 03/23/23 03/23/23 Range/Units 05:39 06:25 WBC (3.8-10.6) k/uL RBC (4.30-5.90) m/uL Hgb (13.0-17.5) gm/dL Hct (39.0-53.0) % RDW (11.5-15.5) % Neutrophils # (1.3-7.7) k/uL Lymphocytes # (1.0-4.8) k/uL APTT (22.0-30.0) sec ABG pCO2 34 L (35-45) mmHg ABG O2 Saturation 97.9 H (94-97) % Sodium (137-145) mmol/L Chloride (98-107) mmol/L BUN (9-20) mg/dL Glucose (74-99) mg/dL POC Glucose (mg/dL) 222 H (70-110) mg/dL Calcium (8.4-10.2) mg/dL Magnesium (1.6-2.3) mg/dL Triglycerides (0.00-149.00) mg/dL Microbiology - Last 24 Hours (Table) 03/20/23 22:45 Gram Stain - Preliminary Gastric Aspirate Sputum Culture - Preliminary Presumptive Staph aureus Assessment and Plan Assessment: Acute hypoxemic respiratory failure, secondary to hospital-acquired pneumonia, S/P intubation and mechanical ventilation, on 03/20/2023. Acute abdominal pain, with small bowel obstruction/ileus. Acute sepsis, likely related to underlying pneumonia. Recent elective lumbosacral fusion, and decompression, March 2023, with a complicated postoperative course. Acute metabolic encephalopathy. History of lymphoma, S/P stem cell transplant. Acute non-ST segment elevation myocardial infarction. Paroxysmal atrial fibrillation. Plan: Plan dated 03/23/2023. The patient has been intubated since March 20. Despite being on sedation, the patient is somewhat responsive. The patient will have a spontaneous breathing trial today. We'll place him on pressure support of 5, and CPAP of 5. After about 20 or 30 minutes, the patient will set a weaning parameters, including a rapid shallow breathing index, and cuff leak test. Labs, x-rays, medications are reviewed. The patient remains on Cardizem 5 mg an hour, and heparin. The patient remains on cefepime. The patient also continues on peripheral paren teral nutrition. Additional recommendations and suggestions are forthcoming. Time with Patient: Greater than 30
--- NOTE | 2023-03-23 11:15 | P.PN ---
Subjective Progress Note Date: 03/23/23 Pt has had no fevers in last 72 hours. Gastric aspirate growing staph aureus. Pt extubated today to nasal cannula General: intubated, sedated HEENT: normocephalic, atraumatic, no tracheal deviation Respiratory: symmetric chest rise, no cyanosis, ventilator dependent CVS: perfusing all extremities, no distal gangrene, no pitting edema GI: soft, ND : no SPT, no CVAT, dennis is present Neuro: sedated Hospital course: Patient is a 67-year-old male with a PMH of hypothyroidism, hypertension, and degenerative disc disease with chronic lower back pain who was admitted for an elective lumbosacral fusion and decompression. The patient underwent a 2-stage procedure with anterior and posterior approaches on 03/13. After surgery patient developed ileus and A. fib with RVR and also found to have non-ST elevation [place]. Gen. surgery and cardiology were consulted on the patient. The patient had NG tube placed for ileus and was started on Reglan 10 mg every 6 hours. Patient was having high-grade fevers and tachycardia on 03/18 was started on vancomycin, cefepime, Flagyl. Assessment: Severe sepsis from Hospital Acquired Pneumonia Non-ST elevation [place], type II Paroxysmal atrial fibrillation with RVR Postoperative ileus Status post lumbosacral decompression and fusion surgery Plan: CBC demonstrates leukocytosis to 13.1, hemoglobin of 10.5 Basic metabolic panel shows potassium of 4.1, Na 147, BUN 41 Chest x-ray from 03/23 is personally interpreted, shows improving pulmonary edema, left lower lobe infiltrate Continue vancomycin cefepime, Flagyl; appreciate ID recommendations TPN has been initiated Levothyroxine 125mcg IV daily continues Pt is full code Objective - Vital Signs Vital signs: Vital Signs Temp 98.8 F 03/23/23 08:00 Pulse 92 03/23/23 10:00 Resp 12 03/23/23 10:00 BP 169/97 03/23/23 10:00 Pulse Ox 97 03/23/23 10:00 FiO2 35 03/23/23 08:00 Intake & Output 03/22/23 03/23/23 03/23/23 18:59 06:59 18:59 Intake Total 4550.992 5193 422 Output Total 1550 1270 525 Balance -175.579 196 -103 Weight 104.1 kg Intake: IV 534 436 262 Cefepime 2 gm In Sodium 200 100 100 Chloride 0.9% 100 ml @ 25 mls/hr IVPB Q8HR [facility] Rx# :[id number] KVO 180 200 50 Mvi, Adult No.4 with Vit 30 K 10 ml Trace (Conc-1Ml/ Dose) 1 ml In Amino Acid 5%-D15w+Lytes*E* 1,000 ml @ 30 mls/hr IV .Q24H [facility] Rx#:[id number] Pressure bags 24 36 12 metroNIDAZOLE-NS PMX 500 100 100 100 mg In Saline 1 100ml.bag @ 100 mls/hr IVPB Q8HR [facility] Rx#:[id number] Intake, IV Titration 580.421 550 Amount Diltiazem 125 mg In 116.333 Sodium Chloride 0.9% 100 ml @ 5 MG/HR 5 mls/hr IV .Q24H [facility] Rx#:[id number] Heparin Sod,Pork in 0.45% 250 NaCl 25,000 unit In 0.45 % NaCl 1 250ml.bag @ 9.4 UNITS/KG/HR 9.964 mls/hr IV .Q24H [facility] Rx#: [id number] Potassium Chloride 10 meq 200 In Water For Injection 1 100ml.bag @ 100 mls/hr IVPB Q1H [facility] Rx#: [id number] propofoL 1,000 mg In 264.088 300 Empty Bag 1 bag @ 15 MCG/ KG/MIN 9.54 mls/hr IV . [id number] [facility] Rx#:[id number] TPN/PPN 260 480 160 Mvi, Adult No.4 with Vit 260 480 160 K 10 ml Trace (Conc-1Ml/ Dose) 1 ml In Amino Acid 5%-D15w+Lytes*E* 1,000 ml @ 30 mls/hr IV .Q24H [facility] Rx#:[id number] Output: Urine 1550 1270 525 Other: Voiding Method Indwelling Catheter Indwelling Catheter Indwelling Catheter ABP, PAP, CO, CI - Last Documented Arterial Blood Pressure 209/87 - Labs CBC & Chem 7: 03/23/23 03:46 03/23/23 03:46 Labs: Abnormal Lab Results - Last 24 Hours (Table) 03/22/23 03/22/23 03/22/23 Range/Units 04:15 11:56 17:36 WBC (3.8-10.6) k/uL RBC (4.30-5.90) m/uL Hgb (13.0-17.5) gm/dL Hct (39.0-53.0) % RDW (11.5-15.5) % Neutrophils # (1.3-7.7) k/uL Lymphocytes # (1.0-4.8) k/uL APTT (22.0-30.0) sec ABG pCO2 (35-45) mmHg ABG O2 Saturation (94-97) % Sodium (137-145) mmol/L Chloride (98-107) mmol/L BUN (9-20) mg/dL Glucose (74-99) mg/dL POC Glucose (mg/dL) 210 H 205 H (70-110) mg/dL Calcium (8.4-10.2) mg/dL Magnesium (1.6-2.3) mg/dL Triglycerides 183.00 H (0.00-149.00) mg/dL 03/22/23 03/23/23 03/23/23 Range/Units 17:55 00:06 03:46 WBC (3.8-10.6) k/uL RBC (4.30-5.90) m/uL Hgb (13.0-17.5) gm/dL Hct (39.0-53.0) % RDW (11.5-15.5) % Neutrophils # (1.3-7.7) k/uL Lymphocytes # (1.0-4.8) k/uL APTT 60.9 H (22.0-30.0) sec ABG pCO2 (35-45) mmHg ABG O2 Saturation (94-97) % Sodium (137-145) mmol/L Chloride (98-107) mmol/L BUN (9-20) mg/dL Glucose (74-99) mg/dL POC Glucose (mg/dL) 220 H 222 H (70-110) mg/dL Calcium (8.4-10.2) mg/dL Magnesium (1.6-2.3) mg/dL Triglycerides (0.00-149.00) mg/dL 03/23/23 03/23/23 03/23/23 Range/Units 03:46 03:46 03:46 WBC 13.1 H (3.8-10.6) k/uL RBC 3.46 L (4.30-5.90) m/uL Hgb 10.5 L (13.0-17.5) gm/dL Hct 33.2 L (39.0-53.0) % RDW 15.7 H (11.5-15.5) % Neutrophils # 12.4 H (1.3-7.7) k/uL Lymphocytes # 0.3 L (1.0-4.8) k/uL APTT (22.0-30.0) sec ABG pCO2 (35-45) mmHg ABG O2 Saturation (94-97) % Sodium 147 H (137-145) mmol/L Chloride 119 H (98-107) mmol/L BUN 41 H (9-20) mg/dL Glucose 220 H (74-99) mg/dL POC Glucose (mg/dL) (70-110) mg/dL Calcium 7.3 L (8.4-10.2) mg/dL Magnesium 2.7 H (1.6-2.3) mg/dL Triglycerides (0.00-149.00) mg/dL 03/23/23 03/23/23 Range/Units 05:39 06:25 WBC (3.8-10.6) k/uL RBC (4.30-5.90) m/uL Hgb (13.0-17.5) gm/dL Hct (39.0-53.0) % RDW (11.5-15.5) % Neutrophils # (1.3-7.7) k/uL Lymphocytes # (1.0-4.8) k/uL APTT (22.0-30.0) sec ABG pCO2 34 L (35-45) mmHg ABG O2 Saturation 97.9 H (94-97) % Sodium (137-145) mmol/L Chloride (98-107) mmol/L BUN (9-20) mg/dL Glucose (74-99) mg/dL POC Glucose (mg/dL) 222 H (70-110) mg/dL Calcium (8.4-10.2) mg/dL Magnesium (1.6-2.3) mg/dL Triglycerides (0.00-149.00) mg/dL Microbiology - Last 24 Hours (Table) 08/11/23 22:45 Gram Stain - Preliminary Gastric Aspirate Sputum Culture - Preliminary Presumptive Staph aureus
[2023-03-23 12:11] LABS: Glucose,Whole Blood 219 mg/dL (70-110)
[2023-03-23] MEDS: HEPARIN SOD,PORK IN 0.45% NACL 25,000 UNIT in 0.45% NACL 1 250ML.BAG IV SCH (13:05)
[2023-03-23 14:52] LABS: HCT 35.2 % (39.0-53.0); HGB 11.3 gm/dL (13.0-17.5); Hypochromasia Slight; MCH 30.3 pg (25.0-35.0); MCHC 32.2 g/dL (31.0-37.0); MCV 94.1 fL (80.0-100.0); Mean Platelet Volume 9.5; Platelet Count 296 k/uL (150-450); RBC 3.74 m/uL (4.30-5.90); RDW 15.6 % (11.5-15.5); WBC 19.7 k/uL (3.8-10.6)
[2023-03-23 15:02] LABS: INR 1.1 (<1.2); Partial Thromboplastin Time 43.3 sec (22.0-30.0); Prothrombin Time 11.4 sec (9.0-12.0)
[2023-03-23] MEDS: MVI, ADULT NO.4 WITH VIT K 10 ML, TRACE (CONC-1ML/DOSE) 1 ML, CALCIUM GLUCONATE 1 GM, P... IV SCH ×6 (16:01)
[2023-03-23] MEDS: NITROGLYCERIN SL TABS 0.4 MG TAB SUBLINGUAL ONE ×3 (16:53→17:05)
--- NOTE | 2023-03-23 17:11 | P.PN ---
Subjective Progress Note Date: 03/23/23 CHIEF COMPLAINT: Ileus HISTORY OF PRESENT ILLNESS: The patient is a 67-year-old male status post anter ior exposure for lumbar fusion, 03/13/2023. Gen. surgery has been following for ileus. This afternoon, is at bedside. He has been extubated. He denies abdominal pain. He had a small bowel movement yesterday per discussion with his . ROS: No reports of nausea and vomiting. No chest pain. PHYSICAL EXAM: VITAL SIGNS: Reviewed CONSTITUTIONAL: Well developed. EYES: Conjuctivae without sclera icterus. HEAD, EARS, NOSE, THROAT: Moist buccal mucosa. Head is atraumatic, normocephal ic. Hears conversational speech. No nasal drainage. RESPIRATORY: Nonlabored respiration. CARDIOVASCULAR: Palpable 2+ radial pulses. ABDOMEN: Soft nontender. MUSCULOSKELETAL: No gross deformity of the lower extremities noted. No clubbing. No cyanosis. SKIN: Good skin turgor. Well perfused. NEUROLOGIC: Cranial nerves II through XII grossly intact. No focal or lateralizing signs. PSYCH: Awake, lethargic CLINICAL LABS: Reviewed. WBC elevated, 13.1. STUDIES: Chest x-ray reviewed without free air. ASSESSMENT: 1. Ileus, resolving 2. Sepsis presentation 3. Lumbar spondylolisthesis status post fusion 4. Hospital-acquired pneumonia 5. Metabolic encephalopathy PLAN: 1. May start full liquid diet 2. Cautious advancement of diet pending clinical response Objective - Vital Signs Vital signs: Vital Signs Temp 99.1 F 03/23/23 15:00 Pulse 96 03/23/23 15:36 Resp 19 03/23/23 15:00 BP 179/104 03/23/23 15:00 Pulse Ox 97 03/23/23 15:00 FiO2 35 03/23/23 08:00 Intake & Output 03/22/23 03/23/23 03/23/23 18:59 06:59 18:59 Intake Total 8701.244 6543 1950.562 Output Total 1550 1270 1415 Balance -175.579 196 535.562 Weight 104.1 kg Intake: IV 534 436 533 Cefepime 2 gm In Sodium 200 100 200 Chloride 0.9% 100 ml @ 25 mls/hr IVPB Q8HR [facility] Rx# :[id number] KVO 180 200 100 Mvi, Adult No.4 with Vit 30 K 10 ml Trace (Conc-1Ml/ Dose) 1 ml In Amino Acid 5%-D15w+Lytes*E* 1,000 ml @ 30 mls/hr IV .Q24H [facility] Rx#:[id number] Pressure bags 24 36 33 metroNIDAZOLE-NS PMX 500 100 100 200 mg In Saline 1 100ml.bag @ 100 mls/hr IVPB Q8HR [facility] Rx#:[id number] Intake, IV Titration 580.987 547 4554.562 Amount Diltiazem 125 mg In 116.333 Sodium Chloride 0.9% 100 ml @ 5 MG/HR 5 mls/hr IV .Q24H [facility] Rx#:[id number] Heparin Sod,Pork in 0.45% 250 251.856 NaCl 25,000 unit In 0.45 % NaCl 1 250ml.bag @ 9.4 UNITS/KG/HR 9.964 mls/hr IV .Q24H [facility] Rx#: [id number] Mvi, Adult No.4 with Vit 914.667 K 10 ml Trace (Conc-1Ml/ Dose) 1 ml Calcium Gluconate 1 gm Potassium Acetate 20 meq Potassium Phosphate 15 mmol In Amino Acid 5%-D15w 1,000 ml @ 40 mls/hr IV .Q24H [facility] Rx#:[id number] Potassium Chloride 10 meq 200 In Water For Injection 1 100ml.bag @ 100 mls/hr IVPB Q1H [facility] Rx#: [id number] propofoL 1,000 mg In 264.088 300 51.039 Empty Bag 1 bag @ 15 MCG/ KG/MIN 9.54 mls/hr IV . [id number] [facility] Rx#:[id number] TPN/PPN 260 480 200 Mvi, Adult No.4 with Vit 260 480 200 K 10 ml Trace (Conc-1Ml/ Dose) 1 ml In Amino Acid 5%-D15w+Lytes*E* 1,000 ml @ 30 mls/hr IV .Q24H [facility] Rx#:[id number] Output: Urine 1550 1270 1415 Other: Voiding Method Indwelling Catheter Indwelling Catheter Indwelling Catheter # Bowel Movements 1 ABP, PAP, CO, CI - Last Documented Arterial Blood Pressure 219/77 - Labs CBC & Chem 7: 03/23/23 14:45 03/23/23 03:46 Labs: Abnormal Lab Results - Last 24 Hours (Table) 03/22/23 03/22/23 03/23/23 Range/Units 17:36 17:55 00:06 WBC (3.8-10.6) k/uL RBC (4.30-5.90) m/uL Hgb (13.0-17.5) gm/dL Hct (39.0-53.0) % RDW (11.5-15.5) % Neutrophils # (1.3-7.7) k/uL Lymphocytes # (1.0-4.8) k/uL APTT (22.0-30.0) sec ABG pCO2 (35-45) mmHg ABG O2 Saturation (94-97) % Sodium (137-145) mmol/L Chloride (98-107) mmol/L BUN (9-20) mg/dL Glucose (74-99) mg/dL POC Glucose (mg/dL) 205 H 220 H 222 H (70-110) mg/dL Calcium (8.4-10.2) mg/dL Magnesium (1.6-2.3) mg/dL 03/23/23 03/23/23 03/23/23 Range/Units 03:46 03:46 03:46 WBC 13.1 H (3.8-10.6) k/uL RBC 3.46 L (4.30-5.90) m/uL Hgb 10.5 L (13.0-17.5) gm/dL Hct 33.2 L (39.0-53.0) % RDW 15.7 H (11.5-15.5) % Neutrophils # 12.4 H (1.3-7.7) k/uL Lymphocytes # 0.3 L (1.0-4.8) k/uL APTT 60.9 H (22.0-30.0) sec ABG pCO2 (35-45) mmHg ABG O2 Saturation (94-97) % Sodium (137-145) mmol/L Chloride (98-107) mmol/L BUN (9-20) mg/dL Glucose (74-99) mg/dL POC Glucose (mg/dL) (70-110) mg/dL Calcium (8.4-10.2) mg/dL Magnesium 2.7 H (1.6-2.3) mg/dL 03/23/23 03/23/23 03/23/23 Range/Units 03:46 05:39 06:25 WBC (3.8-10.6) k/uL RBC (4.30-5.90) m/uL Hgb (13.0-17.5) gm/dL Hct (39.0-53.0) % RDW (11.5-15.5) % Neutrophils # (1.3-7.7) k/uL Lymphocytes # (1.0-4.8) k/uL APTT (22.0-30.0) sec ABG pCO2 34 L (35-45) mmHg ABG O2 Saturation 97.9 H (94-97) % Sodium 147 H (137-145) mmol/L Chloride 119 H (98-107) mmol/L BUN 41 H (9-20) mg/dL Glucose 220 H (74-99) mg/dL POC Glucose (mg/dL) 222 H (70-110) mg/dL Calcium 7.3 L (8.4-10.2) mg/dL Magnesium (1.6-2.3) mg/dL 03/23/23 03/23/23 03/23/23 Range/Units 12:09 14:45 14:45 WBC 19.7 H (3.8-10.6) k/uL RBC 3.74 L (4.30-5.90) m/uL Hgb 11.3 L (13.0-17.5) gm/dL Hct 35.2 L (39.0-53.0) % RDW 15.6 H (11.5-15.5) % Neutrophils # (1.3-7.7) k/uL Lymphocytes # (1.0-4.8) k/uL APTT 43.3 H (22.0-30.0) sec ABG pCO2 (35-45) mmHg ABG O2 Saturation (94-97) % Sodium (137-145) mmol/L Chloride (98-107) mmol/L BUN (9-20) mg/dL Glucose (74-99) mg/dL POC Glucose (mg/dL) 219 H (70-110) mg/dL Calcium (8.4-10.2) mg/dL Magnesium (1.6-2.3) mg/dL Microbiology - Last 24 Hours (Table) 03/20/23 22:45 Gram Stain - Preliminary Gastric Aspirate Sputum Culture - Preliminary Presumptive Staph aureus
[2023-03-23 18:04] LABS: Glucose,Whole Blood 189 mg/dL (70-110)
[2023-03-23] MEDS: NITROGLYCERIN OINT 1 INCH/GM PACKET TOPICAL SCH (20:57)
[2023-03-23 21:11] LABS: Magnesium 2.7 mg/dL (1.6-2.3)
[2023-03-24 00:01] LABS: Glucose,Whole Blood 190 mg/dL (70-110)
[2023-03-24] MEDS: INSULIN ASPART (NovoLOG) 100 UNIT/ML VIAL SQ SCH ×4 (00:16→19:05)
[2023-03-24] MEDS: IPRATROPIUM-ALBUTEROL 3 ML NEB INHALATION PRN ×2 (00:22→15:24)
[2023-03-24] MEDS: NITROGLYCERIN OINT 1 INCH/GM PACKET TOPICAL SCH ×4 (02:59→19:53)
[2023-03-24] MEDS: DILTIAZEM 125 MG in SODIUM CHLORIDE 0.9% 100 ML IV SCH ×2 (05:33→07:45)
[2023-03-24] MEDS: METOPROLOL TARTRATE 5 MG/5 ML VIAL IVP SCH ×5 (06:03→19:53)
[2023-03-24 06:07] LABS: Glucose,Whole Blood 200 mg/dL (70-110)
[2023-03-24 06:08] LABS: Basophils % (A) 0 %; Eosinophils % (A) 0 %; HCT 36.3 % (39.0-53.0); HGB 11.1 gm/dL (13.0-17.5); Hypochromasia Moderate; Lymphocytes # (A) 0.4 k/uL (1.0-4.8); Lymphocytes % (A) 3 %; MCH 29.5 pg (25.0-35.0); MCHC 30.6 g/dL (31.0-37.0); MCV 96.1 fL (80.0-100.0); Mean Platelet Volume 9.2; Monocytes # (A) 0.4 k/uL (0-1.0); Monocytes % (A) 2 %; Neutrophils % (A) 94 %; Platelet Count 259 k/uL (150-450); RBC 3.78 m/uL (4.30-5.90); RDW 15.9 % (11.5-15.5)
[2023-03-24 06:23] LABS: Ionized Calcium 4.7 mg/dL (4.5-5.3)
[2023-03-24 06:32] LABS: African American GFR (CKD) >90 (>60 ml/min/1.73 sqM); Anion Gap 10 mmol/L; Blood Urea Nitrogen 39 mg/dL (9-20); Calcium 7.9 mg/dL (8.4-10.2); Carbon Dioxide 22 mmol/L (22-30); Chloride 119 mmol/L (98-107); Glucose 188 mg/dL (74-99); Magnesium 2.6 mg/dL (1.6-2.3); Non-African American GFR(CKD) 79 (>60 ml/min/1.73 sqM); Phosphorus 3.7 mg/dL (2.5-4.5); Potassium 4.3 mmol/L (3.5-5.1); Sodium 151 mmol/L (137-145)
--- NOTE | 2023-03-24 07:31 | P.PN ---
Subjective Progress Note Date: 03/24/23 Principal diagnosis: Atrial flutter The patient is a 67-year-old gentleman who was admitted to the hospital and underwent an L5-S1 fusion complicated by ileus and subsequently we involved in the care of the patient because of paroxysmal atrial fibrillation/atrial flutter and also elevated troponin. The echo revealed mildly impaired LV function with EF around 45% was mild valvular pathology. March 232022 The patient was seen and evaluated this morning. He continues to be intubated on mechanical ventilation. He continues to be nothing by mouth. Hemodynamically he is stable. Currently he is on Cardizem IV as well as heparin IV as well as metoprolol IV. We will continue the current medical regimen until the patient is not nothing by mouth anymore then at that point we will switch the patient into oral medication. I believe coronary angiogram need to be done to rule out severe CAD 1 sedation has better recovery. Currently no indication of any hemodynamic instability. He is maintaining normal sinus mechanism. March 242022 The patient was seen and evaluated this morning. Yesterday he did have an episode of chest pressure. The EKG revealed sinus mechanism with T-wave inversion in the inferolateral leads. He continues to be nothing by mouth. H eparin was systolic yesterday because of gastrointestinal bleeding which is currently under investigation. I am going to give the patient aspirin rectally. He is on beta rubi IV. He is on Cardizem IV. He cannot be on any statin at this point. I believe that the patient need to undergo coronary angiogram once we know that he is able to take his antiplatelet orally in case he needs to undergo an angioplasty. Otherwise I would continue the current medical regimen and continue follow-up with the patient. Assessment Status post L5 to S1 fusion Ileus Paroxysmal atrial fibrillation/flutter Acute non-ST elevation myocardial infarction Mild cardiomyopathy Plan Continue the current medical regimen Start the patient on aspirin rectally Hold heparin in the light of gastrointestinal bleeding Continue beta rubi IV Continue Cardizem IV Start the patient on hydralazine when necessary for hypertension Follow-up with the patient Objective - Vital Signs Vital signs: Vital Signs Temp 98.8 F 03/24/23 04:00 Pulse 95 03/24/23 07:00 Resp 15 03/24/23 07:00 BP 170/105 03/24/23 07:00 Pulse Ox 99 03/24/23 07:00 FiO2 35 03/23/23 08:00 Intake & Output 03/23/23 03/24/23 03/24/23 18:59 06:59 18:59 Intake Total 1983.562 188.083 Output Total 1540 1790 Balance 443.562 -1601.917 Weight 100 kg Intake: IV 566 86 Cefepime 2 gm In Sodium 200 Chloride 0.9% 100 ml @ 25 mls/hr IVPB Q8HR [facility] Rx# :[id number] Invasive Line 10 40 Invasive Line 7 30 40 KVO 100 Pressure bags 36 6 metroNIDAZOLE-NS PMX 500 200 mg In Saline 1 100ml.bag @ 100 mls/hr IVPB Q8HR [facility] Rx#:[id number] Intake, IV Titration 1217.562 102.083 Amount Diltiazem 125 mg In 102.083 Sodium Chloride 0.9% 100 ml @ 5 MG/HR 5 mls/hr IV .Q24H [facility] Rx#:[id number] Heparin Sod,Pork in 0.45% 251.856 NaCl 25,000 unit In 0.45 % NaCl 1 250ml.bag @ 9.4 UNITS/KG/HR 9.964 mls/hr IV .Q24H [facility] Rx#: [id number] Mvi, Adult No.4 with Vit 914.667 K 10 ml Trace (Conc-1Ml/ Dose) 1 ml Calcium Gluconate 1 gm Potassium Acetate 20 meq Potassium Phosphate 15 mmol In Amino Acid 5%-D15w 1,000 ml @ 40 mls/hr IV .Q24H [facility] Rx#:[id number] propofoL 1,000 mg In 51.039 Empty Bag 1 bag @ 15 MCG/ KG/MIN 9.54 mls/hr IV . [id number] [facility] Rx#:[id number] TPN/PPN 200 Mvi, Adult No.4 with Vit 200 K 10 ml Trace (Conc-1Ml/ Dose) 1 ml In Amino Acid 5%-D15w+Lytes*E* 1,000 ml @ 30 mls/hr IV .Q24H [facility] Rx#:[id number] Output: Urine 1540 1790 Other: Voiding Method Indwelling Catheter Indwelling Catheter # Bowel Movements 1 ABP, PAP, CO, CI - Last Documented Arterial Blood Pressure 200/72 - Labs CBC & Chem 7: 03/24/23 05:43 03/24/23 05:43 Labs: Abnormal Lab Results - Last 24 Hours (Table) 03/23/23 03/23/23 03/23/23 Range/Units 12:09 14:45 14:45 WBC 19.7 H (3.8-10.6) k/uL RBC 3.74 L (4.30-5.90) m/uL Hgb 11.3 L (13.0-17.5) gm/dL Hct 35.2 L (39.0-53.0) % MCHC (31.0-37.0) g/dL RDW 15.6 H (11.5-15.5) % Neutrophils # (1.3-7.7) k/uL Lymphocytes # (1.0-4.8) k/uL APTT 43.3 H (22.0-30.0) sec D-Dimer (<0.60) mg/L FEU Sodium (137-145) mmol/L Chloride (98-107) mmol/L BUN (9-20) mg/dL Glucose (74-99) mg/dL POC Glucose (mg/dL) 219 H (70-110) mg/dL Calcium (8.4-10.2) mg/dL Magnesium (1.6-2.3) mg/dL Troponin I (0.000-0.034) ng/mL 03/23/23 03/23/23 03/23/23 Range/Units 14:45 18:02 20:13 WBC (3.8-10.6) k/uL RBC (4.30-5.90) m/uL Hgb (13.0-17.5) gm/dL Hct (39.0-53.0) % MCHC (31.0-37.0) g/dL RDW (11.5-15.5) % Neutrophils # (1.3-7.7) k/uL Lymphocytes # (1.0-4.8) k/uL APTT (22.0-30.0) sec D-Dimer 1.02 H (<0.60) mg/L FEU Sodium (137-145) mmol/L Chloride (98-107) mmol/L BUN (9-20) mg/dL Glucose (74-99) mg/dL POC Glucose (mg/dL) 189 H (70-110) mg/dL Calcium (8.4-10.2) mg/dL Magnesium 2.7 H (1.6-2.3) mg/dL Troponin I (0.000-0.034) ng/mL 03/23/23 03/24/23 03/24/23 Range/Units 20:45 00:00 05:43 WBC (3.8-10.6) k/uL RBC (4.30-5.90) m/uL Hgb (13.0-17.5) gm/dL Hct (39.0-53.0) % MCHC (31.0-37.0) g/dL RDW (11.5-15.5) % Neutrophils # (1.3-7.7) k/uL Lymphocytes # (1.0-4.8) k/uL APTT (22.0-30.0) sec D-Dimer (<0.60) mg/L FEU Sodium 151 H (137-145) mmol/L Chloride 119 H (98-107) mmol/L BUN 39 H (9-20) mg/dL Glucose 188 H (74-99) mg/dL POC Glucose (mg/dL) 190 H (70-110) mg/dL Calcium 7.9 L (8.4-10.2) mg/dL Magnesium 2.6 H (1.6-2.3) mg/dL Troponin I 0.443 H* (0.000-0.034) ng/mL 03/24/23 03/24/23 03/24/23 Range/Units 05:43 05:43 06:05 WBC 17.0 H (3.8-10.6) k/uL RBC 3.78 L (4.30-5.90) m/uL Hgb 11.1 L (13.0-17.5) gm/dL Hct 36.3 L (39.0-53.0) % MCHC 30.6 L (31.0-37.0) g/dL RDW 15.9 H (11.5-15.5) % Neutrophils # 16.0 H (1.3-7.7) k/uL Lymphocytes # 0.4 L (1.0-4.8) k/uL APTT (22.0-30.0) sec D-Dimer (<0.60) mg/L FEU Sodium (137-145) mmol/L Chloride (98-107) mmol/L BUN (9-20) mg/dL Glucose (74-99) mg/dL POC Glucose (mg/dL) 200 H (70-110) mg/dL Calcium (8.4-10.2) mg/dL Magnesium (1.6-2.3) mg/dL Troponin I 0.445 H* (0.000-0.034) ng/mL Microbiology - Last 24 Hours (Table) 03/18/23 15:14 Blood Culture - Final Blood 03/18/23 15:06 Blood Culture - Final Blood 03/20/23 22:45 Gram Stain - Preliminary Gastric Aspirate Sputum Culture - Preliminary Presumptive Staph aureus
[2023-03-24] MEDS ORDERED: DEXTROSE 5%-0.45% NACL 1,000 ML IV SCH (07:45)
[2023-03-24] MEDS ORDERED: IPRATROPIUM-ALBUTEROL 3 ML NEB INHALATION SCH (08:00)
[2023-03-24] MEDS ORDERED: DEXTROSE 5% IN WATER 1,000 ML IV ONE (08:21)
--- NOTE | 2023-03-24 08:59 | P.PN ---
Subjective Progress Note Date: 03/24/23 Principal diagnosis: L5-S1 grade 2 spondylolisthesis L4 S1 spondylosis lower extremity radiculopathy Patient seen and examined this morning in ICU. Patient is resting comfortably in bed. Patient is currently on 3L NC O2 sat 99%. Patient BP is elevated at this time 170/105 HR 95. Anterior abdominal surgical dressing has been removed this morning. Surgical incision is well approximated with glue intact. No drainage. Posterior paralumbar surgical dressing will be changed later today. Patient to continue to work with PT. Encourage use of incentive spirometer. Objective - Vital Signs Vital signs: Vital Signs Temp 98.8 F 03/24/23 04:00 Pulse 100 03/24/23 07:47 Resp 15 03/24/23 07:00 BP 170/105 03/24/23 07:00 Pulse Ox 99 03/24/23 07:36 FiO2 35 03/23/23 08:00 Intake & Output 03/23/23 03/24/23 03/24/23 18:59 06:59 18:59 Intake Total 1983.562 188.083 Output Total 1540 1790 Balance 443.562 -1601.917 Weight 100 kg Intake: IV 566 86 Cefepime 2 gm In Sodium 200 Chloride 0.9% 100 ml @ 25 mls/hr IVPB Q8HR [facility] Rx# :[id number] Invasive Line 10 40 Invasive Line 7 30 40 KVO 100 Pressure bags 36 6 metroNIDAZOLE-NS PMX 500 200 mg In Saline 1 100ml.bag @ 100 mls/hr IVPB Q8HR [facility] Rx#:[id number] Intake, IV Titration 1217.562 102.083 Amount Diltiazem 125 mg In 102.083 Sodium Chloride 0.9% 100 ml @ 5 MG/HR 5 mls/hr IV .Q24H [facility] Rx#:[id number] Heparin Sod,Pork in 0.45% 251.856 NaCl 25,000 unit In 0.45 % NaCl 1 250ml.bag @ 9.4 UNITS/KG/HR 9.964 mls/hr IV .Q24H [facility] Rx#: [id number] Mvi, Adult No.4 with Vit 914.667 K 10 ml Trace (Conc-1Ml/ Dose) 1 ml Calcium Gluconate 1 gm Potassium Acetate 20 meq Potassium Phosphate 15 mmol In Amino Acid 5%-D15w 1,000 ml @ 40 mls/hr IV .Q24H [facility] Rx#:[id number] propofoL 1,000 mg In 51.039 Empty Bag 1 bag @ 15 MCG/ KG/MIN 9.54 mls/hr IV . [id number] [facility] Rx#:[id number] TPN/PPN 200 Mvi, Adult No.4 with Vit 200 K 10 ml Trace (Conc-1Ml/ Dose) 1 ml In Amino Acid 5%-D15w+Lytes*E* 1,000 ml @ 30 mls/hr IV .Q24H [facility] Rx#:[id number] Output: Urine 1540 1790 Other: Voiding Method Indwelling Catheter Indwelling Catheter # Bowel Movements 1 ABP, PAP, CO, CI - Last Documented Arterial Blood Pressure 200/72 - Exam Physical Examination General: The patient is awake and alert, in no acute distress Skin: Anterior surgical incision midline lower abdomen is well approximated with glue intact. Posterior paralumbar surgical dressing CDI, will be changed later today Eye: Pupils are to the lower equal, round and reactive to light, extra-ocular movements are intact; there is normal conjunctiva bilaterally. Neck: The neck is supple, there is no tenderness and ROM intact. Cardiovascular: There is a regular rate and rhythm. No murmur, rub or gallop is appreciated. Respiratory: Respirations are non-labored, breath sounds are equal. Gastrointestinal: Nontender, soft Back: There is no tenderness to palpation in the midline, paralumbar, parathoracic or buttocks region. There is no obvious deformity . Musculoskeletal: ROM limited secondary to pain and stiffness from surgical procedure. Muscle strength in all major muscle groups of bilateral upper extrem ities 5/5, bilateral lower extremities 3-/5. Neurological: CN 2-12 intact. There are no obvious motor or sensory deficits. Movement and coordination equal and intact. Sensory exam to light touch intact C5-T1 and intact from L2-S1. Reflexes 2/4 in bilateral upper and lower extremities. Negative Hoffmans, babinski, and clonus signs. Psychiatric: Cooperative, appropriate mood & affect, normal judgment. - Labs CBC & Chem 7: 03/24/23 05:43 03/24/23 05:43 Labs: Abnormal Lab Results - Last 24 Hours (Table) 03/23/23 03/23/23 03/23/23 Range/Units 12:09 14:45 14:45 WBC 19.7 H (3.8-10.6) k/uL RBC 3.74 L (4.30-5.90) m/uL Hgb 11.3 L (13.0-17.5) gm/dL Hct 35.2 L (39.0-53.0) % MCHC (31.0-37.0) g/dL RDW 15.6 H (11.5-15.5) % Neutrophils # (1.3-7.7) k/uL Lymphocytes # (1.0-4.8) k/uL APTT 43.3 H (22.0-30.0) sec D-Dimer (<0.60) mg/L FEU Sodium (137-145) mmol/L Chloride (98-107) mmol/L BUN (9-20) mg/dL Glucose (74-99) mg/dL POC Glucose (mg/dL) 219 H (70-110) mg/dL Calcium (8.4-10.2) mg/dL Magnesium (1.6-2.3) mg/dL Troponin I (0.000-0.034) ng/mL 03/23/23 03/23/23 03/23/23 Range/Units 14:45 18:02 20:13 WBC (3.8-10.6) k/uL RBC (4.30-5.90) m/uL Hgb (13.0-17.5) gm/dL Hct (39.0-53.0) % MCHC (31.0-37.0) g/dL RDW (11.5-15.5) % Neutrophils # (1.3-7.7) k/uL Lymphocytes # (1.0-4.8) k/uL APTT (22.0-30.0) sec D-Dimer 1.02 H (<0.60) mg/L FEU Sodium (137-145) mmol/L Chloride (98-107) mmol/L BUN (9-20) mg/dL Glucose (74-99) mg/dL POC Glucose (mg/dL) 189 H (70-110) mg/dL Calcium (8.4-10.2) mg/dL Magnesium 2.7 H (1.6-2.3) mg/dL Troponin I (0.000-0.034) ng/mL 03/23/23 03/24/23 03/24/23 Range/Units 20:45 00:00 05:43 WBC (3.8-10.6) k/uL RBC (4.30-5.90) m/uL Hgb (13.0-17.5) gm/dL Hct (39.0-53.0) % MCHC (31.0-37.0) g/dL RDW (11.5-15.5) % Neutrophils # (1.3-7.7) k/uL Lymphocytes # (1.0-4.8) k/uL APTT (22.0-30.0) sec D-Dimer (<0.60) mg/L FEU Sodium 151 H (137-145) mmol/L Chloride 119 H (98-107) mmol/L BUN 39 H (9-20) mg/dL Glucose 188 H (74-99) mg/dL POC Glucose (mg/dL) 190 H (70-110) mg/dL Calcium 7.9 L (8.4-10.2) mg/dL Magnesium 2.6 H (1.6-2.3) mg/dL Troponin I 0.443 H* (0.000-0.034) ng/mL 03/24/23 03/24/23 03/24/23 Range/Units 05:43 05:43 06:05 WBC 17.0 H (3.8-10.6) k/uL RBC 3.78 L (4.30-5.90) m/uL Hgb 11.1 L (13.0-17.5) gm/dL Hct 36.3 L (39.0-53.0) % MCHC 30.6 L (31.0-37.0) g/dL RDW 15.9 H (11.5-15.5) % Neutrophils # 16.0 H (1.3-7.7) k/uL Lymphocytes # 0.4 L (1.0-4.8) k/uL APTT (22.0-30.0) sec D-Dimer (<0.60) mg/L FEU Sodium (137-145) mmol/L Chloride (98-107) mmol/L BUN (9-20) mg/dL Glucose (74-99) mg/dL POC Glucose (mg/dL) 200 H (70-110) mg/dL Calcium (8.4-10.2) mg/dL Magnesium (1.6-2.3) mg/dL Troponin I 0.445 H* (0.000-0.034) ng/mL Microbiology - Last 24 Hours (Table) 03/18/23 15:14 Blood Culture - Final Blood 03/18/23 15:06 Blood Culture - Final Blood 03/20/23 22:45 Gram Stain - Preliminary Gastric Aspirate Sputum Culture - Preliminary Presumptive Staph aureus Assessment and Plan Assessment: Postop day 11: Part I: L5-S1 ALIF with Part II: L4-S1 posteriolateral and interbody fusion. Sepsis presentation, new Hospital-acquired pneumonia Post-Op Illeus resolving Lumbar spondylolithesis Plan: -Appreciate financial operations consultant and team management. -Activity: Up to chair with all meals. Daily PT/OT -Pain control: Adequate at this time -Meds: reviewed -GI ppx: senna -Maintain dennis and continue to record output every shift -DVT PPX: per medicine -Hygiene: Maintain dressing clean and dry. Meticulous cleaning after BMs away from the incision site -Dispo: Pateint is cleared from an Orthopedic standpoint, no further recommendations. *I reviewed and discussed this case with my attending Dr. Villa, whom has reviewed this chart and films and is in agreement with assessment and plan of care as outlined above. I have personally seen and examined the patient, performed the documentation and the assessment and plan as written. Number of minutes spent on the visit: 20m.
--- NOTE | 2023-03-24 08:59 | XR ---
EXAMINATION TYPE: XR chest 1V portable DATE OF EXAM: 03/24/2023 COMPARISON: 03/23/2023 HISTORY: Cough TECHNIQUE: Single frontal view of the chest is obtained. FINDINGS: Mediport catheter appears coiled tip near the SVC. Bilateral consolidation small effusion. Diffuse interstitial pattern is seen in. No pneumothorax. Atrophic changes of the spine. ET and NG t ube. IMPRESSION: 1. Bilateral infiltrate and small effusion are stable. The interstitium is increased compared to the prior exam correlate for mild venous congestion
[2023-03-24] MEDS: LEVOTHYROXINE IVP 100 MCG/5 ML VIAL IV SCH (09:26)
[2023-03-24] MEDS: PANTOPRAZOLE 40 MG/10 ML VIAL IVP SCH (09:26)
[2023-03-24] MEDS: HYDROmorphone 0.5 MG/0.5 ML SYRINGE IVP PRN ×3 (09:27→19:51)
[2023-03-24] MEDS: ASPIRIN 300 MG SUPP RECTAL SCH (09:32)
[2023-03-24] MEDS: GABAPENTIN 300 MG CAP PO SCH ×2 (09:41→15:14)
[2023-03-24] MEDS: hydrALAZINE HCL 20 MG/ML 1 ML VIAL IVP PRN ×3 (09:42→17:47)
--- NOTE | 2023-03-24 10:13 | P.PN ---
Subjective Progress Note Date: 03/24/23 Gastric aspirate growing methicilin resistent staph aureus. Pt extubated yesterday. Having high BPs and chest pain and was started on nitro paste. Troponins elevated at 0.43. General: intubated, sedated HEENT: normocephalic, atraumatic, no tracheal deviation Respiratory: symmetric chest rise, no cyanosis, ventilator dependent CVS: perfusing all extremities, no distal gangrene, no pitting edema GI: soft, ND : no SPT, no CVAT, dennis is present Neuro: sedated Hospital course: Patient is a 67-year-old male with a PMH of hypothyroidism, hypertension, and degenerative disc disease with chronic lower back pain who was admitted for an elective lumbosacral fusion and decompression. The patient underwent a 2-stage procedure with anterior and posterior approaches on 03/13. After surgery patient developed ileus and A. fib with RVR and also found to have non-ST elevation IL. Gen. surgery and cardiology were consulted on the patient. The patient had NG tube placed for ileus and was started on Reglan 10 mg every 6 hours. Patient was having high-grade fevers and tachycardia on 03/18 was started on vancomycin, cefepime, Flagyl. Assessment: Severe sepsis from Hospital Acquired Pneumonia Non-ST elevation IL, type II Paroxysmal atrial fibrillation with RVR Postoperative ileus Status post lumbosacral decompression and fusion surgery Plan: CBC demonstrates leukocytosis to 17, hemoglobin of 11.1 Basic metabolic panel shows potassium of 4.3, Na 151, BUN 39 Chest x-ray from 03/24 is personally interpreted, left lower lobe infiltrate and right lower lobe infiltrate, small left pleural effusion BNP, Procalcitonin ordered Continue vancomycin cefepime, Flagyl; appreciate ID recommendations TPN has been initiated D5W initiated for hypernatremia Levothyroxine 125mcg IV daily continues Pt is full code Objective - Vital Signs Vital signs: Vital Signs Temp 98.8 F 03/24/23 04:00 Pulse 100 03/24/23 07:47 Resp 15 03/24/23 07:00 BP 170/105 03/24/23 07:00 Pulse Ox 99 03/24/23 07:36 FiO2 35 03/23/23 08:00 Intake & Output 08/14/23 08/15/23 08/15/23 18:59 06:59 18:59 Intake Total 1983.562 188.083 Output Total 1540 1790 Balance 443.562 -1601.917 Weight 100 kg Intake: IV 566 86 Cefepime 2 gm In Sodium 200 Chloride 0.9% 100 ml @ 25 mls/hr IVPB Q8HR [facility] Rx# :[id number] Invasive Line 10 40 Invasive Line 7 30 40 KVO 100 Pressure bags 36 6 metroNIDAZOLE-NS PMX 500 200 mg In Saline 1 100ml.bag @ 100 mls/hr IVPB Q8HR [facility] Rx#:[id number] Intake, IV Titration 1217.562 102.083 Amount Diltiazem 125 mg In 102.083 Sodium Chloride 0.9% 100 ml @ 5 MG/HR 5 mls/hr IV .Q24H [facility] Rx#:[id number] Heparin Sod,Pork in 0.45% 251.856 NaCl 25,000 unit In 0.45 % NaCl 1 250ml.bag @ 9.4 UNITS/KG/HR 9.964 mls/hr IV .Q24H [facility] Rx#: [id number] Mvi, Adult No.4 with Vit 914.667 K 10 ml Trace (Conc-1Ml/ Dose) 1 ml Calcium Gluconate 1 gm Potassium Acetate 20 meq Potassium Phosphate 15 mmol In Amino Acid 5%-D15w 1,000 ml @ 40 mls/hr IV .Q24H [facility] Rx#:[id number] propofoL 1,000 mg In 51.039 Empty Bag 1 bag @ 15 MCG/ KG/MIN 9.54 mls/hr IV . [id number] [facility] Rx#:[id number] TPN/PPN 200 Mvi, Adult No.4 with Vit 200 K 10 ml Trace (Conc-1Ml/ Dose) 1 ml In Amino Acid 5%-D15w+Lytes*E* 1,000 ml @ 30 mls/hr IV .Q24H [facility] Rx#:[id number] Output: Urine 1540 1790 Other: Voiding Method Indwelling Catheter Indwelling Catheter # Bowel Movements 1 ABP, PAP, CO, CI - Last Documented Arterial Blood Pressure 200/72 - Labs CBC & Chem 7: 03/24/23 05:43 03/24/23 05:43 Labs: Abnormal Lab Results - Last 24 Hours (Table) 03/23/23 03/23/23 03/23/23 Range/Units 12:09 14:45 14:45 WBC 19.7 H (3.8-10.6) k/uL RBC 3.74 L (4.30-5.90) m/uL Hgb 11.3 L (13.0-17.5) gm/dL Hct 35.2 L (39.0-53.0) % MCHC (31.0-37.0) g/dL RDW 15.6 H (11.5-15.5) % Neutrophils # (1.3-7.7) k/uL Lymphocytes # (1.0-4.8) k/uL APTT 43.3 H (22.0-30.0) sec D-Dimer (<0.60) mg/L FEU Sodium (137-145) mmol/L Chloride (98-107) mmol/L BUN (9-20) mg/dL Glucose (74-99) mg/dL POC Glucose (mg/dL) 219 H (70-110) mg/dL Calcium (8.4-10.2) mg/dL Magnesium (1.6-2.3) mg/dL Troponin I (0.000-0.034) ng/mL 03/23/23 03/23/23 03/23/23 Range/Units 14:45 18:02 20:13 WBC (3.8-10.6) k/uL RBC (4.30-5.90) m/uL Hgb (13.0-17.5) gm/dL Hct (39.0-53.0) % MCHC (31.0-37.0) g/dL RDW (11.5-15.5) % Neutrophils # (1.3-7.7) k/uL Lymphocytes # (1.0-4.8) k/uL APTT (22.0-30.0) sec D-Dimer 1.02 H (<0.60) mg/L FEU Sodium (137-145) mmol/L Chloride (98-107) mmol/L BUN (9-20) mg/dL Glucose (74-99) mg/dL POC Glucose (mg/dL) 189 H (70-110) mg/dL Calcium (8.4-10.2) mg/dL Magnesium 2.7 H (1.6-2.3) mg/dL Troponin I (0.000-0.034) ng/mL 03/23/23 03/24/23 03/24/23 Range/Units 20:45 00:00 05:43 WBC (3.8-10.6) k/uL RBC (4.30-5.90) m/uL Hgb (13.0-17.5) gm/dL Hct (39.0-53.0) % MCHC (31.0-37.0) g/dL RDW (11.5-15.5) % Neutrophils # (1.3-7.7) k/uL Lymphocytes # (1.0-4.8) k/uL APTT (22.0-30.0) sec D-Dimer (<0.60) mg/L FEU Sodium 151 H (137-145) mmol/L Chloride 119 H (98-107) mmol/L BUN 39 H (9-20) mg/dL Glucose 188 H (74-99) mg/dL POC Glucose (mg/dL) 190 H (70-110) mg/dL Calcium 7.9 L (8.4-10.2) mg/dL Magnesium 2.6 H (1.6-2.3) mg/dL Troponin I 0.443 H* (0.000-0.034) ng/mL 03/24/23 03/24/23 03/24/23 Range/Units 05:43 05:43 06:05 WBC 17.0 H (3.8-10.6) k/uL RBC 3.78 L (4.30-5.90) m/uL Hgb 11.1 L (13.0-17.5) gm/dL Hct 36.3 L (39.0-53.0) % MCHC 30.6 L (31.0-37.0) g/dL RDW 15.9 H (11.5-15.5) % Neutrophils # 16.0 H (1.3-7.7) k/uL Lymphocytes # 0.4 L (1.0-4.8) k/uL APTT (22.0-30.0) sec D-Dimer (<0.60) mg/L FEU Sodium (137-145) mmol/L Chloride (98-107) mmol/L BUN (9-20) mg/dL Glucose (74-99) mg/dL POC Glucose (mg/dL) 200 H (70-110) mg/dL Calcium (8.4-10.2) mg/dL Magnesium (1.6-2.3) mg/dL Troponin I 0.445 H* (0.000-0.034) ng/mL Microbiology - Last 24 Hours (Table) 03/20/23 22:45 Gram Stain - Final Gastric Aspirate Sputum Culture - Final Methicillin resist S. aureus 03/18/23 15:14 Blood Culture - Final Blood 03/18/23 15:06 Blood Culture - Final Blood
--- NOTE | 2023-03-24 10:57 | P.PN ---
Subjective Progress Note Date: 03/24/23 Principal diagnosis: Respiratory failure. Acute hypoxic respiratory failure, abdominal sepsis, pneumonia This is a 67-year-old white male, known to have history of lymphoma with stem cell transplant, initially admitted on 03/2023. Patient was admitted with lower extremities numbness and low back pain, underwent anterior retroperitoneal exposure performed by Dr. beckford,, he also underwent anterior lumbar interbody fusion L5-S1 insertion of interbody device, posterior lateral and interbody fusion L4-L5, posterior lateral instrumented fusion L5-S1, laminoforaminotomy for decompression and cage placement L4-L5, use of [employer] navigation for screw placement. His immediate postoperative course was uneventful, on 03/15/2023, patient was seen by cardiology for him than as stated the elevated myocardial infarction and he was seen by many other consultants including general surgery for small bowel obstruction/ileus. Cardiology recommended heparin, and general surgery recommended treatment with the Reglan and simethicone. Over the last 1 week, patient has been gradually getting worse, and he has been developing over the last 2 days worsening shortness of breath. Patient was placed on multiple antibiotics, broad-spectrum antibiotics after he was seen by infectious disease on 03/18/2023, patient was treated for presumptive abdominal sepsis and possible pneumonia. Cultures have been negative/mostly blood cultures and no other cultures were sent. Patient has been receiving cefepime, vancomycin, and Flagyl. Chest x-ray on 03/18/2023 showed minimal basilar atelectasis is no clear- cut evidence of infiltrate however chest x-ray on 03/19/2023 showed infiltrates involving the left lower lobe, left midlung, and the right lower lobe. Clearly the patient developed significant airspace disease while inpatient. While on the medical floor, patient was complaining of abdominal pain and distention, CT abdomen done yesterday showed inflammatory changes in the left lower quadrant extending towards the inguinal region and small tiny amount of free air which was evaluated by general surgery and felt this is most likely related to his recent retroperitoneal approach/surgery. Yesterday I was notified about this patient having worsening shortness of breath, hypoxia, tachycardia, and hypertension. I recommended transferring the patient to the ICU and a few hours after he was in the ICU, he continued to do poorly early this morning the patient had to be intubated and placed on mechanical ventilation. He is now on tidal volume of 500 assist control rate 20 FiO2 50% and PEEP of 5. ABG post intubation showed a pO2 of 231 pCO2 42 pH of 7.38. Hence FiO2 was cut down to 50%. WBC count is 12.8 hemoglobin is 11.1, basic metabolic profile is normal except for potassium of 3.4 BUN is 22 creatinine 1.11. Chest x-ray clearly shows bilateral air space disease consistent with pneumonia or possibly ARDS patient is now on propofol at 45 mcg/kg/m his IV fluid is a 100 mL an hour in the form of 0.9 normal saline, his also on Cardizem drip. Patient was reevaluated today on 03/21/2023, remains in the ICU intubated and mechanically ventilated. He is on assist control rate of 20 tidal volume 500 FiO2 50% and PEEP of 5. His ABG showed a pO2 of 100 pCO2 36 pH of 7.46, FiO2 was cut down to 45%. Patient remains on Cardizem drip at 10 mg per hour and I cut it down to 5 he is on propofol at 45 mcg/kg/m he is also on heparin as per cardiology. Antibiotics moreno patient is receiving vancomycin and Flagyl. TPN to be started today, and again I will cut down his Cardizem to 5 mg per hour. On lower sedation, the patient seems to be comprehending, and he follows simple instructions. Chest x-ray continues to show significant infiltrate in the left lower lobe and right lower lobe, hence I don't believe the patient is quite ready for weaning and extubation at this point in time. WBC count is 12.4 hemoglobin is 10.6, PTT is 88. Electronic for normal renal profile is normal blood sugar is 163 Reevaluated today on 03/22/2023, patient remains in the ICU intubated and mechanically ventilated sedated on propofol at 40 mcg/kg/m remains on Cardizem at 5 mg per hour remains on heparin as per cardiology. He is on assist control rate of 20, tidal volume 500 FiO2 40% PEEP of 5. ABG showed a pO2 of 103 pCO2 36 pH of 7.46, hence I cut down the FiO2 to 35%. Patient is also on TPN at 50 mL per hour. His chest x-ray is showing slight improvement in his infiltrate nonetheless continues to have significant consolidation in the left lower lobe, his right-sided pneumonia seems to be improving. Today the plan is to start addressing her mental status off sedation and decide whether the patient could be considered for weaning in the next 24 hours. Sedation holiday will be given today, and only assessment of mental status to be done today. WBC count remains at the time at 14.4 hemoglobin is 10.6 PTT is 53. Electrolytes are normal except for slightly elevated sodium of 146 and the rest of the labs are unremarkable. Progress note dated 03/23/2023. 67-year-old male who was admitted back on March 13. The patient is currently in the intensive care unit, being admitted there on March 19, and intubated on March 20. He remains on the mechanical ventilator. The patient is on volume assist control, rate 20, tidal volume 500, FiO2 35%, with a PEEP of 5. Blood gases show pO2 of 105, pCO2 34, and pH is 7.4. The patient is currently on saline at 20 mL an hour, a Cardizem drip at 5 mg an hour, peripheral parenteral nutrition at 40 mL an hour, and heparin via weightbase protocol. White count is 13.1, hemoglobin 10.5, hematocrit 33.2, and a platelet count 264,000. Sodium 147, potassium 4.1, chlorides 119, CO2 22, anion gap 6, BUN 41, and creatinine 1.02. Blood cultures have been negative. Gastric aspirate was positive for staph aureus. Chest x-ray shows stable bilateral consolidations and small effusions. Progress note dated 03/24/2023. 67-year-old male was admitted back on March 13. The patient is in the intensive care unit, and has been here since March 19. He was intubated the following day on March 20. Yesterday, his weaning parameters were excellent, and he was successfully extubated. He is currently on 2 L of oxygen by nasal cannula. He is getting Cardizem drip at 10 mg an hour, and TPN at 40 mL an hour. He's currently on D5 half-normal saline at 75 mL an hour, which will be converted D5W at 75 mL an hour. The patient failed his bedside swallow evaluation. White count of 17, hemoglobin 11.1, hematocrit 36.3, and platelet count 259,000. Sodium 151, potassium 4.3, chlorides 119, CO2 22, anion gap 10, BUN 39, and creatinine 0.98. Troponins were 0.443 and 0.445. From 811, the gastric aspirate Gram stain was positive for methicillin-resistant staph aureus. The patient's chest x-ray shows bilateral infiltrates, and small effusion, and is stable. Objective - Vital Signs Vital signs: Vital Signs Temp 98.8 F 03/24/23 04:00 Pulse 100 03/24/23 07:47 Resp 15 03/24/23 07:00 BP 170/105 03/24/23 07:00 Pulse Ox 99 03/24/23 07:36 FiO2 35 03/23/23 08:00 Intake & Output 03/23/23 03/24/23 03/24/23 18:59 06:59 18:59 Intake Total 1983.562 188.083 Output Total 1540 1790 Balance 443.562 -1601.917 Weight 100 kg Intake: IV 566 86 Cefepime 2 gm In Sodium 200 Chloride 0.9% 100 ml @ 25 mls/hr IVPB Q8HR [facility] Rx# :[id number] Invasive Line 10 40 Invasive Line 7 30 40 KVO 100 Pressure bags 36 6 metroNIDAZOLE-NS PMX 500 200 mg In Saline 1 100ml.bag @ 100 mls/hr IVPB Q8HR [facility] Rx#:[id number] Intake, IV Titration 1217.562 102.083 Amount Diltiazem 125 mg In 102.083 Sodium Chloride 0.9% 100 ml @ 5 MG/HR 5 mls/hr IV .Q24H [facility] Rx#:[id number] Heparin Sod,Pork in 0.45% 251.856 NaCl 25,000 unit In 0.45 % NaCl 1 250ml.bag @ 9.4 UNITS/KG/HR 9.964 mls/hr IV .Q24H [facility] Rx#: [id number] Mvi, Adult No.4 with Vit 914.667 K 10 ml Trace (Conc-1Ml/ Dose) 1 ml Calcium Gluconate 1 gm Potassium Acetate 20 meq Potassium Phosphate 15 mmol In Amino Acid 5%-D15w 1,000 ml @ 40 mls/hr IV .Q24H [facility] Rx#:[id number] propofoL 1,000 mg In 51.039 Empty Bag 1 bag @ 15 MCG/ KG/MIN 9.54 mls/hr IV . [id number] [facility] Rx#:[id number] TPN/PPN 200 Mvi, Adult No.4 with Vit 200 K 10 ml Trace (Conc-1Ml/ Dose) 1 ml In Amino Acid 5%-D15w+Lytes*E* 1,000 ml @ 30 mls/hr IV .Q24H [facility] Rx#:[id number] Output: Urine 1540 1790 Other: Voiding Method Indwelling Catheter Indwelling Catheter # Bowel Movements 1 ABP, PAP, CO, CI - Last Documented Arterial Blood Pressure 200/72 - Exam No acute distress, awake, a bit lethargic, on nasal O2. HEENT examination is grossly unremarkable. Neck supple. Full range of motion. No adenopathy thyromegaly or neck vein distention. Cardiovascular examination reveals regular rhythm rate. S1-S2 normal. No S3 or S4. No discernible murmur noted. Heart sounds are distant. Heart rate 92 bpm. Lungs reveal scattered bilateral rhonchi. No wheezes or crackles. Breath sounds are equal bilaterally. Saturations are 99%. Abdomen soft with bowel sounds. No masses or tenderness. Extremities are intact. No cyanosis clubbing or edema. Skin is without rash or lesion. Neurologic examination is brief but nonfocal. - Labs CBC & Chem 7: 03/24/23 05:43 03/24/23 05:43 Labs: Abnormal Lab Results - Last 24 Hours (Table) 03/23/23 03/23/23 03/23/23 Range/Units 12:09 14:45 14:45 WBC 19.7 H (3.8-10.6) k/uL RBC 3.74 L (4.30-5.90) m/uL Hgb 11.3 L (13.0-17.5) gm/dL Hct 35.2 L (39.0-53.0) % MCHC (31.0-37.0) g/dL RDW 15.6 H (11.5-15.5) % Neutrophils # (1.3-7.7) k/uL Lymphocytes # (1.0-4.8) k/uL APTT 43.3 H (22.0-30.0) sec D-Dimer (<0.60) mg/L FEU Sodium (137-145) mmol/L Chloride (98-107) mmol/L BUN (9-20) mg/dL Glucose (74-99) mg/dL POC Glucose (mg/dL) 219 H (70-110) mg/dL Calcium (8.4-10.2) mg/dL Magnesium (1.6-2.3) mg/dL Troponin I (0.000-0.034) ng/mL 03/23/23 03/23/23 03/23/23 Range/Units 14:45 18:02 20:13 WBC (3.8-10.6) k/uL RBC (4.30-5.90) m/uL Hgb (13.0-17.5) gm/dL Hct (39.0-53.0) % MCHC (31.0-37.0) g/dL RDW (11.5-15.5) % Neutrophils # (1.3-7.7) k/uL Lymphocytes # (1.0-4.8) k/uL APTT (22.0-30.0) sec D-Dimer 1.02 H (<0.60) mg/L FEU Sodium (137-145) mmol/L Chloride (98-107) mmol/L BUN (9-20) mg/dL Glucose (74-99) mg/dL POC Glucose (mg/dL) 189 H (70-110) mg/dL Calcium (8.4-10.2) mg/dL Magnesium 2.7 H (1.6-2.3) mg/dL Troponin I (0.000-0.034) ng/mL 03/23/23 03/24/23 03/24/23 Range/Units 20:45 00:00 05:43 WBC (3.8-10.6) k/uL RBC (4.30-5.90) m/uL Hgb (13.0-17.5) gm/dL Hct (39.0-53.0) % MCHC (31.0-37.0) g/dL RDW (11.5-15.5) % Neutrophils # (1.3-7.7) k/uL Lymphocytes # (1.0-4.8) k/uL APTT (22.0-30.0) sec D-Dimer (<0.60) mg/L FEU Sodium 151 H (137-145) mmol/L Chloride 119 H (98-107) mmol/L BUN 39 H (9-20) mg/dL Glucose 188 H (74-99) mg/dL POC Glucose (mg/dL) 190 H (70-110) mg/dL Calcium 7.9 L (8.4-10.2) mg/dL Magnesium 2.6 H (1.6-2.3) mg/dL Troponin I 0.443 H* (0.000-0.034) ng/mL 03/24/23 03/24/23 03/24/23 Range/Units 05:43 05:43 06:05 WBC 17.0 H (3.8-10.6) k/uL RBC 3.78 L (4.30-5.90) m/uL Hgb 11.1 L (13.0-17.5) gm/dL Hct 36.3 L (39.0-53.0) % MCHC 30.6 L (31.0-37.0) g/dL RDW 15.9 H (11.5-15.5) % Neutrophils # 16.0 H (1.3-7.7) k/uL Lymphocytes # 0.4 L (1.0-4.8) k/uL APTT (22.0-30.0) sec D-Dimer (<0.60) mg/L FEU Sodium (137-145) mmol/L Chloride (98-107) mmol/L BUN (9-20) mg/dL Glucose (74-99) mg/dL POC Glucose (mg/dL) 200 H (70-110) mg/dL Calcium (8.4-10.2) mg/dL Magnesium (1.6-2.3) mg/dL Troponin I 0.445 H* (0.000-0.034) ng/mL Microbiology - Last 24 Hours (Table) 03/20/23 22:45 Gram Stain - Final Gastric Aspirate Sputum Culture - Final Methicillin resist S. aureus 03/18/23 15:14 Blood Culture - Final Blood 03/18/23 15:06 Blood Culture - Final Blood Assessment and Plan Assessment: Acute hypoxemic respiratory failure, secondary to hospital-acquired pneumonia, S/P intubation and mechanical ventilation, on 03/20/2023, with successful ext ubation on 03/23/2023. Acute abdominal pain, with small bowel obstruction/ileus. Acute sepsis, likely related to underlying pneumonia. Recent elective lumbosacral fusion, and decompression, March 2023, with a complicated postoperative course. Acute metabolic encephalopathy. History of lymphoma, S/P stem cell transplant. Acute non-ST segment elevation myocardial infarction. Paroxysmal atrial fibrillation. Plan: Plan dated 03/23/2023. The patient has been intubated since March 20. Despite being on sedation, the patient is somewhat responsive. The patient will have a spontaneous breathing trial today. We'll place him on pressure support of 5, and CPAP of 5. After about 20 or 30 minutes, the patient will set a weaning parameters, including a rapid shallow breathing index, and cuff leak test. Labs, x-rays, medications are reviewed. The patient remains on Cardizem 5 mg an hour, and heparin. The patient remains on cefepime. The patient also continues on peripheral parenteral nutrition. Additional recommendations and suggestions are forthcoming. Plan dated 03/24/2023. The patient. Watt daily interruption of sedation yesterday, and his spontaneous breathing trial, and was successfully extubated. Labs, x-rays, and medications are all reviewed. The patient continues on 2 L of oxygen. The patient's IV will be changed from D5 with half-normal saline to dextrose, at 75 mL an hour, because of the patient's hypernatremia. He remains on Cardizem at 1 0 mg an hour. Additional recommendations and suggestions are forthcoming. He did fail his bedside swallow evaluation. Time with Patient: Greater than 30
[2023-03-24 11:12] LABS: Glucose,Whole Blood 191 mg/dL (70-110)
[2023-03-24] MEDS: IPRATROPIUM-ALBUTEROL 3 ML NEB INHALATION SCH ×2 (11:22→20:17)
[2023-03-24] MEDS ORDERED: VANCOMYCIN IV PER PHARMACY 1 EACH MISC MISCELLANE PRN (12:57)
--- NOTE | 2023-03-24 13:32 | P.PN ---
Progress Note - Text Progress Note Date: 03/24/23 Patient seen and examined, I reviewed the note, discussed the case with the PROJECT ANALYST first hand and agree with the assessment and plan of Estevan Ferrari NP. Please see my notes below for any additional recommendations. family is at bedside the patient and x-rays sitting up in a chair he is actually doing fairly well. He is somewhat weak right now however he is able to move over to his lower extremities and strength and gravity and some resistance. He has full sensation. He is still somewhat diaphoretic but he is able answer all questions appropriately finds no chest pain. He states no other issues at this time dressings are clean dry and intact.
--- NOTE | 2023-03-24 14:38 | P.PN ---
Subjective Progress Note Date: 03/24/23 Principal diagnosis: Postop fever Patient is a 67-year-old male electively admitted to the hospital 03/13/2023 in this patient who is s/p anterior lumbar interbody fusion L5-S1 insertion of interbody device with anterior approach patient did develop postop ileus and did have a new fever prompting infection disease consultation. Patient did have a worsening of his respiratory distress requiring transfer to the ICU and the patient was intubated morning of 03/20/2023, patient subsequently got extubated on 03/23/2023 on today's evaluation that is 03/24/2023 patient continues to be afebrile, the patient has been extubated and is breathing comfortably on today's visit cannula oxygen, patient denies having any chest pain he did have some, not begin any sputum no nausea no vomiting no abdominal pain or diarrhea Patient white count is slightly elevated is slightly slowed down to 17,000 today, creatinine is 0.98, blood cultures negative and sputum cultures currently growing MRSA , the patient chest x-ray bilateral infiltrate and small effusion stable Objective - Vital Signs Vital signs: Vital Signs Temp 98.8 F 03/24/23 04:00 Pulse 100 03/24/23 11:33 Resp 15 03/24/23 07:00 BP 170/105 03/24/23 07:00 Pulse Ox 99 03/24/23 07:36 FiO2 35 03/23/23 08:00 Intake & Output 03/23/23 03/24/23 03/24/23 18:59 06:59 18:59 Intake Total 1983.562 188.083 Output Total 1540 1790 Balance 443.562 -1601.917 Weight 100 kg 100 kg Intake: IV 566 86 Cefepime 2 gm In Sodium 200 Chloride 0.9% 100 ml @ 25 mls/hr IVPB Q8HR [facility] Rx# :[id number] Invasive Line 10 40 Invasive Line 7 30 40 KVO 100 Pressure bags 36 6 metroNIDAZOLE-NS PMX 500 200 mg In Saline 1 100ml.bag @ 100 mls/hr IVPB Q8HR [facility] Rx#:[id number] Intake, IV Titration 1217.562 102.083 Amount Diltiazem 125 mg In 102.083 Sodium Chloride 0.9% 100 ml @ 5 MG/HR 5 mls/hr IV .Q24H [facility] Rx#:[id number] Heparin Sod,Pork in 0.45% 251.856 NaCl 25,000 unit In 0.45 % NaCl 1 250ml.bag @ 9.4 UNITS/KG/HR 9.964 mls/hr IV .Q24H [facility] Rx#: [id number] Mvi, Adult No.4 with Vit 914.667 K 10 ml Trace (Conc-1Ml/ Dose) 1 ml Calcium Gluconate 1 gm Potassium Acetate 20 meq Potassium Phosphate 15 mmol In Amino Acid 5%-D15w 1,000 ml @ 40 mls/hr IV .Q24H [facility] Rx#:[id number] propofoL 1,000 mg In 51.039 Empty Bag 1 bag @ 15 MCG/ KG/MIN 9.54 mls/hr IV . [id number] [facility] Rx#:[id number] TPN/PPN 200 Mvi, Adult No.4 with Vit 200 K 10 ml Trace (Conc-1Ml/ Dose) 1 ml In Amino Acid 5%-D15w+Lytes*E* 1,000 ml @ 30 mls/hr IV .Q24H [facility] Rx#:[id number] Output: Urine 1540 1790 Other: Voiding Method Indwelling Catheter Indwelling Catheter # Bowel Movements 1 ABP, PAP, CO, CI - Last Documented Arterial Blood Pressure 200/72 - Exam GENERAL DESCRIPTION: An elderly male up in the chair in no distress RESPIRATORY SYSTEM: Unlabored breathing , decreased breath sounds at bases HEART: S1 S2 regular rate and rhythm , ABDOMEN: Soft , no tenderness EXTREMITIES: No edema feet - Labs CBC & Chem 7: 03/24/23 05:43 03/24/23 05:43 Labs: Abnormal Lab Results - Last 24 Hours (Table) 03/23/23 03/23/23 03/23/23 Range/Units 14:45 14:45 14:45 WBC 19.7 H (3.8-10.6) k/uL RBC 3.74 L (4.30-5.90) m/uL Hgb 11.3 L (13.0-17.5) gm/dL Hct 35.2 L (39.0-53.0) % MCHC (31.0-37.0) g/dL RDW 15.6 H (11.5-15.5) % Neutrophils # (1.3-7.7) k/uL Lymphocytes # (1.0-4.8) k/uL APTT 43.3 H (22.0-30.0) sec D-Dimer 1.02 H (<0.60) mg/L FEU Sodium (137-145) mmol/L Chloride (98-107) mmol/L BUN (9-20) mg/dL Glucose (74-99) mg/dL POC Glucose (mg/dL) (70-110) mg/dL Calcium (8.4-10.2) mg/dL Magnesium (1.6-2.3) mg/dL Troponin I (0.000-0.034) ng/mL 03/23/23 03/23/23 03/23/23 Range/Units 18:02 20:13 20:45 WBC (3.8-10.6) k/uL RBC (4.30-5.90) m/uL Hgb (13.0-17.5) gm/dL Hct (39.0-53.0) % MCHC (31.0-37.0) g/dL RDW (11.5-15.5) % Neutrophils # (1.3-7.7) k/uL Lymphocytes # (1.0-4.8) k/uL APTT (22.0-30.0) sec D-Dimer (<0.60) mg/L FEU Sodium (137-145) mmol/L Chloride (98-107) mmol/L BUN (9-20) mg/dL Glucose (74-99) mg/dL POC Glucose (mg/dL) 189 H (70-110) mg/dL Calcium (8.4-10.2) mg/dL Magnesium 2.7 H (1.6-2.3) mg/dL Troponin I 0.443 H* (0.000-0.034) ng/mL 03/24/23 03/24/23 03/24/23 Range/Units 00:00 05:43 05:43 WBC 17.0 H (3.8-10.6) k/uL RBC 3.78 L (4.30-5.90) m/uL Hgb 11.1 L (13.0-17.5) gm/dL Hct 36.3 L (39.0-53.0) % MCHC 30.6 L (31.0-37.0) g/dL RDW 15.9 H (11.5-15.5) % Neutrophils # 16.0 H (1.3-7.7) k/uL Lymphocytes # 0.4 L (1.0-4.8) k/uL APTT (22.0-30.0) sec D-Dimer (<0.60) mg/L FEU Sodium 151 H (137-145) mmol/L Chloride 119 H (98-107) mmol/L BUN 39 H (9-20) mg/dL Glucose 188 H (74-99) mg/dL POC Glucose (mg/dL) 190 H (70-110) mg/dL Calcium 7.9 L (8.4-10.2) mg/dL Magnesium 2.6 H (1.6-2.3) mg/dL Troponin I (0.000-0.034) ng/mL 03/24/23 03/24/23 03/24/23 Range/Units 05:43 06:05 11:10 WBC (3.8-10.6) k/uL RBC (4.30-5.90) m/uL Hgb (13.0-17.5) gm/dL Hct (39.0-53.0) % MCHC (31.0-37.0) g/dL RDW (11.5-15.5) % Neutrophils # (1.3-7.7) k/uL Lymphocytes # (1.0-4.8) k/uL APTT (22.0-30.0) sec D-Dimer (<0.60) mg/L FEU Sodium (137-145) mmol/L Chloride (98-107) mmol/L BUN (9-20) mg/dL Glucose (74-99) mg/dL POC Glucose (mg/dL) 200 H 191 H (70-110) mg/dL Calcium (8.4-10.2) mg/dL Magnesium (1.6-2.3) mg/dL Troponin I 0.445 H* (0.000-0.034) ng/mL Microbiology - Last 24 Hours (Table) 03/20/23 22:45 Gram Stain - Final Gastric Aspirate Sputum Culture - Final Methicillin resist S. aureus 03/18/23 15:14 Blood Culture - Final Blood 03/18/23 15:06 Blood Culture - Final Blood Assessment and Plan (1) Sepsis Current Visit: Yes Status: Acute Code(s): A41.9 - SEPSIS, UNSPECIFIED ORGANISM SNOMED Code(s): 70752393 (2) MRSA pneumonia Current Visit: Yes Status: Acute Code(s): J15.212 - PNEUMONIA DUE TO ME THICILLIN RESISTANT STAPHYLOCOCCUS AUREUS SNOMED Code(s): 017639357682185 Plan: 1patient with a postop fever in this patient with extensive surgery requiring anterior lumbar interbody fusion L5-S1 and insertion of interbody device developing a postop ileus now low-grade fever and tachycardia possible abdominal source however no significant tenderness was noticed on abdominal Examination,, patient did have a negative UA chest x-ray did shows mild strandy atelectasis lower lungs patient did have a CT abdominal pelvis Did show some inflammatory changes in the left lower quadrant and tiny air no mention of any abscess or perforation 2-blood culture negative, sputum culture did grew MRSA which has been mislabeled as gastric aspirate 3-we will start patient on vancomycin pharmacy to dose and monitor clinical course closely Dictation was produced using [facility] dictation software. please excuse any grammatical, word or spelling errors. Time with Patient: Less than 30
[2023-03-24] MEDS: MVI, ADULT NO.4 WITH VIT K 10 ML, TRACE (CONC-1ML/DOSE) 1 ML, CALCIUM GLUCONATE 1 GM, P... IV SCH ×6 (15:21)
[2023-03-24] MEDS: VANCOMYCIN 1,750 MG in SODIUM CHLORIDE 0.9% 500 ML 500 ML IVPB SCH (15:21)
--- NOTE | 2023-03-24 15:45 | P.PN ---
Subjective Progress Note Date: 03/24/23 I am seeing the patient for the first time during this admission. Please refer to Dr. Damon's note for further details. His is at bedside and she states patient has rare intermittent hand resting tremor but has worsened during this hospital visit. Per nurse, he is slow to respond. Objective - Vital Signs Vital signs: Vital Signs Temp 98.6 F 03/24/23 12:00 Pulse 106 H 03/24/23 15:27 Resp 20 03/24/23 15:00 BP 141/80 03/24/23 15:00 Pulse Ox 97 03/24/23 15:00 FiO2 35 03/23/23 08:00 Intake & Output 03/23/23 03/24/23 03/24/23 18:59 06:59 18:59 Intake Total 1983.562 188.083 700 Output Total 1540 1790 555 Balance 443.562 -1601.917 145 Weight 100 kg 100 kg Intake: IV 566 86 700 Cefepime 2 gm In Sodium 200 Chloride 0.9% 100 ml @ 25 mls/hr IVPB Q8HR [facility] Rx# :[id number] Dextrose 5% in Water 1, 600 000 ml @ 75 mls/hr IV . [id number] [facility] Rx#:[id number] Invasive Line 1 30 Invasive Line 10 40 30 Invasive Line 2 30 Invasive Line 7 30 40 10 KVO 100 Pressure bags 36 6 metroNIDAZOLE-NS PMX 500 200 mg In Saline 1 100ml.bag @ 100 mls/hr IVPB Q8HR [facility] Rx#:[id number] Intake, IV Titration 1217.562 102.083 Amount Diltiazem 125 mg In 102.083 Sodium Chloride 0.9% 100 ml @ 5 MG/HR 5 mls/hr IV .Q24H [facility] Rx#:[id number] Heparin Sod,Pork in 0.45% 251.856 NaCl 25,000 unit In 0.45 % NaCl 1 250ml.bag @ 9.4 UNITS/KG/HR 9.964 mls/hr IV .Q24H [facility] Rx#: [id number] Mvi, Adult No.4 with Vit 914.667 K 10 ml Trace (Conc-1Ml/ Dose) 1 ml Calcium Gluconate 1 gm Potassium Acetate 20 meq Potassium Phosphate 15 mmol In Amino Acid 5%-D15w 1,000 ml @ 40 mls/hr IV .Q24H [facility] Rx#:[id number] propofoL 1,000 mg In 51.039 Empty Bag 1 bag @ 15 MCG/ KG/MIN 9.54 mls/hr IV . [id number] [facility] Rx#:[id number] TPN/PPN 200 Mvi, Adult No.4 with Vit 200 K 10 ml Trace (Conc-1Ml/ Dose) 1 ml In Amino Acid 5%-D15w+Lytes*E* 1,000 ml @ 30 mls/hr IV .Q24H [facility] Rx#:[id number] Output: Urine 1540 1790 555 Other: Voiding Method Indwelling Catheter Indwelling Catheter Indwelling Catheter # Bowel Movements 1 ABP, PAP, CO, CI - Last Documented Arterial Blood Pressure 200/72 - Exam General: Patient is sitting in a recliner chair and is not in acute distress. Psych: Flat affect. Neuro: Somewhat limited because of his cooperation. The patient is awake alert oriented to self, place and time. He is very slow in responding. He's able to follow simple commands. No aphasia from the limited language. No neglect. Pupils are round equal reactive to light. Visual vernon are full to confrontation. Extraocular movement is intact no nystagmus. No facial weakness but as stated above he has a flat affect. No dysarthria. Motor is he's moving all extremities above gravity. Her to assess individual muscle strength because of his cooperation. He has a resting tremor of her right upper extremity minimal over the left but more significant over the right than the left. Sensation is normal to touch. - Labs CBC & Chem 7: 03/24/23 05:43 03/24/23 05:43 Labs: Abnormal Lab Results - Last 24 Hours (Table) 03/23/23 03/23/23 03/23/23 Range/Units 14:45 18:02 20:13 WBC (3.8-10.6) k/uL RBC (4.30-5.90) m/uL Hgb (13.0-17.5) gm/dL Hct (39.0-53.0) % MCHC (31.0-37.0) g/dL RDW (11.5-15.5) % Neutrophils # (1.3-7.7) k/uL Lymphocytes # (1.0-4.8) k/uL D-Dimer 1.02 H (<0.60) mg/L FEU Sodium (137-145) mmol/L Chloride (98-107) mmol/L BUN (9-20) mg/dL Glucose (74-99) mg/dL POC Glucose (mg/dL) 189 H (70-110) mg/dL Calcium (8.4-10.2) mg/dL Magnesium 2.7 H (1.6-2.3) mg/dL Troponin I (0.000-0.034) ng/mL 03/23/23 03/24/23 03/24/23 Range/Units 20:45 00:00 05:43 WBC (3.8-10.6) k/uL RBC (4.30-5.90) m/uL Hgb (13.0-17.5) gm/dL Hct (39.0-53.0) % MCHC (31.0-37.0) g/dL RDW (11.5-15.5) % Neutrophils # (1.3-7.7) k/uL Lymphocytes # (1.0-4.8) k/uL D-Dimer (<0.60) mg/L FEU Sodium 151 H (137-145) mmol/L Chloride 119 H (98-107) mmol/L BUN 39 H (9-20) mg/dL Glucose 188 H (74-99) mg/dL POC Glucose (mg/dL) 190 H (70-110) mg/dL Calcium 7.9 L (8.4-10.2) mg/dL Magnesium 2.6 H (1.6-2.3) mg/dL Troponin I 0.443 H* (0.000-0.034) ng/mL 03/24/23 03/24/23 03/24/23 Range/Units 05:43 05:43 06:05 WBC 17.0 H (3.8-10.6) k/uL RBC 3.78 L (4.30-5.90) m/uL Hgb 11.1 L (13.0-17.5) gm/dL Hct 36.3 L (39.0-53.0) % MCHC 30.6 L (31.0-37.0) g/dL RDW 15.9 H (11.5-15.5) % Neutrophils # 16.0 H (1.3-7.7) k/uL Lymphocytes # 0.4 L (1.0-4.8) k/uL D-Dimer (<0.60) mg/L FEU Sodium (137-145) mmol/L Chloride (98-107) mmol/L BUN (9-20) mg/dL Glucose (74-99) mg/dL POC Glucose (mg/dL) 200 H (70-110) mg/dL Calcium (8.4-10.2) mg/dL Magnesium (1.6-2.3) mg/dL Troponin I 0.445 H* (0.000-0.034) ng/mL 03/24/23 Range/Units 11:10 WBC (3.8-10.6) k/uL RBC (4.30-5.90) m/uL Hgb (13.0-17.5) gm/dL Hct (39.0-53.0) % MCHC (31.0-37.0) g/dL RDW (11.5-15.5) % Neutrophils # (1.3-7.7) k/uL Lymphocytes # (1.0-4.8) k/uL D-Dimer (<0.60) mg/L FEU Sodium (137-145) mmol/L Chloride (98-107) mmol/L BUN (9-20) mg/dL Glucose (74-99) mg/dL POC Glucose (mg/dL) 191 H (70-110) mg/dL Calcium (8.4-10.2) mg/dL Magnesium (1.6-2.3) mg/dL Troponin I (0.000-0.034) ng/mL Microbiology - Last 24 Hours (Table) 03/20/23 22:45 Gram Stain - Final Gastric Aspirate Sputum Culture - Final Methicillin resist S. aureus 03/18/23 15:14 Blood Culture - Final Blood 03/18/23 15:06 Blood Culture - Final Blood Assessment and Plan Assessment: * Altered mental status due to multifactorial: Septic encephalopathy and toxic metabolic encephalopathy--mentation improving but is slow to respond * Right upper extremity resting tremor with flat affect and per has worsened during this admission since surgery and prior was subtle: Underlying questionable diagnosis of Parkinson's disease (PD), (per does not have PD diagnosis prior to this) * Sepsis likely from abdominal source. * Acute hypoxic respiratory failure secondary to pneumonia, possible ARDS * Acute abdominal pain with small bowel obstruction/ileus being addressed by surgery on the case. * Paroxysmal atrial fibrillation * History of lymphoma and previous stem cell transplant. * Acute non-ST elevated ND * Status post elective lumbosacral fusion and decompression 03/13/2023. Plan: I ordered TSH, vitamin B-12, folate and ammonia level. I ordered MRI of the brain to rule out any central insult as result of resting tremor vs underlying Parkinson's disease. If work-up above is negative and continues to have significant resting tremor with flat affect, will start patient on Sinemet. Will defer the rest of management to primary team and other specialist. The plan is discussed with patient's who is at bedside and his nurse. Time with Patient: Less than 30
[2023-03-24] MEDS: ACETAMINOPHEN IV (For NPO) 1,000 MG in EMPTY BAG 1 BAG IVPB PRN (16:42)
[2023-03-24 18:27] LABS: Glucose,Whole Blood 189 mg/dL (70-110)
[2023-03-24 20:26] LABS: Glucose,Whole Blood 169 mg/dL (70-110)
[2023-03-25 00:01] LABS: Glucose,Whole Blood 145 mg/dL (70-110)
[2023-03-25] MEDS: HYDROmorphone 0.5 MG/0.5 ML SYRINGE IVP PRN ×4 (00:18→14:25)
[2023-03-25] MEDS: VANCOMYCIN 1,750 MG in SODIUM CHLORIDE 0.9% 500 ML 500 ML IVPB SCH (00:19)
[2023-03-25] MEDS: METOPROLOL TARTRATE 5 MG/5 ML VIAL IVP SCH ×4 (00:19→12:30)
[2023-03-25] MEDS: hydrALAZINE HCL 20 MG/ML 1 ML VIAL IVP PRN ×3 (02:46→21:49)
[2023-03-25] MEDS: NITROGLYCERIN OINT 1 INCH/GM PACKET TOPICAL SCH ×4 (02:47→20:23)
[2023-03-25] MEDS: DILTIAZEM 125 MG in SODIUM CHLORIDE 0.9% 100 ML IV SCH ×3 (02:52→14:14)
[2023-03-25 04:13] LABS: African American GFR (CKD) >90 (>60 ml/min/1.73 sqM); Anion Gap 5 mmol/L; Blood Urea Nitrogen 29 mg/dL (9-20); Calcium 7.6 mg/dL (8.4-10.2); Carbon Dioxide 22 mmol/L (22-30); Chloride 121 mmol/L (98-107); Glucose 155 mg/dL (74-99); Non-African American GFR(CKD) 82 (>60 ml/min/1.73 sqM); Phosphorus 3.2 mg/dL (2.5-4.5); Sodium 148 mmol/L (137-145)
[2023-03-25 04:24] LABS: Magnesium 2.3 mg/dL (1.6-2.3); Potassium 4.2 mmol/L (3.5-5.1)
[2023-03-25 04:37] LABS: Basophils % (A) 0 %; Eosinophils # (A) 0.1 k/uL (0-0.7); Eosinophils % (A) 1 %; HCT 34.8 % (39.0-53.0); HGB 11.1 gm/dL (13.0-17.5); Hypochromasia Marked; Lymphocytes # (A) 0.5 k/uL (1.0-4.8); Lymphocytes % (A) 3 %; MCH 31.2 pg (25.0-35.0); MCHC 31.9 g/dL (31.0-37.0); MCV 97.9 fL (80.0-100.0); Macrocytosis Slight; Mean Platelet Volume 11.6; Monocytes # (A) 0.4 k/uL (0-1.0); Monocytes % (A) 3 %; Neutrophils # (A) 13.9 k/uL (1.3-7.7); Neutrophils % (A) 92 %; RBC 3.56 m/uL (4.30-5.90); RDW 15.9 % (11.5-15.5)
[2023-03-25 06:44] LABS: Glucose,Whole Blood 176 mg/dL (70-110)
[2023-03-25] MEDS: INSULIN ASPART (NovoLOG) 100 UNIT/ML VIAL SQ SCH ×4 (06:55→17:17)
--- NOTE | 2023-03-25 07:55 | P.PN ---
Subjective Progress Note Date: 03/24/23 CHIEF COMPLAINT: Ileus HISTORY OF PRESENT ILLNESS: The patient is a 67-year-old male status post anter ior exposure for lumbar fusion, 03/13/2023. Gen. surgery is following for ileus. He is passing flatus and having bowel movements. He sitting up at the chair. and daughter at bedside. Bedside swallow evaluation being performed ROS: No reports of nausea and vomiting. No chest pain. T-max 99.2 PHYSICAL EXAM: VITAL SIGNS: Reviewed CONSTITUTIONAL: Well developed. EYES: Conjuctivae without sclera icterus. HEAD, EARS, NOSE, THROAT: Moist buccal mucosa. Head is atraumatic, normocepha lic. Hears conversational speech. No nasal drainage. RESPIRATORY: Nonlabored respiration. CARDIOVASCULAR: Palpable 2+ radial pulses. ABDOMEN: Soft nontender. MUSCULOSKELETAL: No gross deformity of the lower extremities noted. No clubbing. No cyanosis. Edema of the right forearm. SKIN: Good skin turgor. Well perfused. NEUROLOGIC: Cranial nerves II through XII grossly intact. No focal or la teralizing signs. Face is symmetric when smiling. PSYCH: Awake, lethargic CLINICAL LABS: Reviewed. WBC elevated, 17.0 ASSESSMENT: 1. Ileus, resolving 2. Sepsis acquired 3. Lumbar spondylolisthesis status post fusion 4. Hospital-acquired pneumonia 5. Metabolic encephalopathy PLAN: 1. [place] thick and dysphagia 1 diet advised Objective - Vital Signs Vital signs: Vital Signs Temp 99.1 F 03/25/23 04:00 Pulse 94 03/25/23 07:00 Resp 10 L 03/25/23 07:00 BP 163/90 03/25/23 07:00 Pulse Ox 95 03/25/23 07:00 FiO2 35 03/23/23 08:00 Intake & Output 03/24/23 03/25/23 03/25/23 18:59 06:59 18:59 Intake Total 9387.253 7805 75 Output Total 860 1350 150 Balance 998.333 -235 -75 Weight 100 kg 108.8 kg Intake: IV 925 990 75 Dextrose 5% in Water 1, 825 900 75 000 ml @ 75 mls/hr IV . [id number] [facility] Rx#:[id number] Invasive Line 1 30 30 Invasive Line 10 30 30 Invasive Line 2 30 30 Invasive Line 7 10 Intake, IV Titration 933.333 125 Amount Diltiazem 125 mg In 125 Sodium Chloride 0.9% 100 ml @ 10 MG/HR 10 mls/hr IV .[id number] [facility] Rx#: [id number] Mvi, Adult No.4 with Vit 933.333 K 10 ml Trace (Conc-1Ml/ Dose) 1 ml Calcium Gluconate 1 gm Potassium Acetate 40 meq Potassium Phosphate 12 mmol In Amino Acid 5%-D15w 1,000 ml @ 40 mls/hr IV .Q24H [facility] Rx#:[id number] Output: Urine 860 1350 150 Other: Voiding Method Indwelling Catheter Indwelling Catheter ABP, PAP, CO, CI - Last Documented Arterial Blood Pressure 200/72 - Labs CBC & Chem 7: 03/25/23 03:40 03/25/23 03:40 Labs: Abnormal Lab Results - Last 24 Hours (Table) 03/24/23 03/24/23 03/24/23 Range/Units 06:00 11:10 17:15 WBC (3.8-10.6) k/uL RBC (4.30-5.90) m/uL Hgb (13.0-17.5) gm/dL Hct (39.0-53.0) % RDW (11.5-15.5) % Neutrophils # (1.3-7.7) k/uL Lymphocytes # (1.0-4.8) k/uL Sodium (137-145) mmol/L Chloride (98-107) mmol/L BUN (9-20) mg/dL Glucose (74-99) mg/dL POC Glucose (mg/dL) 191 H (70-110) mg/dL Calcium (8.4-10.2) mg/dL Vitamin B12 2660.0 H (200.0-944.0) pg/mL Procalcitonin 0.10 H (0.02-0.09) ng/mL 03/24/23 03/24/23 03/24/23 Range/Units 18:26 20:23 23:59 WBC (3.8-10.6) k/uL RBC (4.30-5.90) m/uL Hgb (13.0-17.5) gm/dL Hct (39.0-53.0) % RDW (11.5-15.5) % Neutrophils # (1.3-7.7) k/uL Lymphocytes # (1.0-4.8) k/uL Sodium (137-145) mmol/L Chloride (98-107) mmol/L BUN (9-20) mg/dL Glucose (74-99) mg/dL POC Glucose (mg/dL) 189 H 169 H 145 H (70-110) mg/dL Calcium (8.4-10.2) mg/dL Vitamin B12 (200.0-944.0) pg/mL Procalcitonin (0.02-0.09) ng/mL 03/25/23 03/25/23 03/25/23 Range/Units 03:40 03:40 06:42 WBC 15.0 H (3.8-10.6) k/uL RBC 3.56 L (4.30-5.90) m/uL Hgb 11.1 L (13.0-17.5) gm/dL Hct 34.8 L (39.0-53.0) % RDW 15.9 H (11.5-15.5) % Neutrophils # 13.9 H (1.3-7.7) k/uL Lymphocytes # 0.5 L (1.0-4.8) k/uL Sodium 148 H (137-145) mmol/L Chloride 121 H (98-107) mmol/L BUN 29 H (9-20) mg/dL Glucose 155 H (74-99) mg/dL POC Glucose (mg/dL) 176 H (70-110) mg/dL Calcium 7.6 L (8.4-10.2) mg/dL Vitamin B12 (200.0-944.0) pg/mL Procalcitonin (0.02-0.09) ng/mL Microbiology - Last 24 Hours (Table) 03/20/23 22:45 Gram Stain - Final Gastric Aspirate Sputum Culture - Final Methicillin resist S. aureus
[2023-03-25 07:57] LABS: Platelet Count 233 k/uL (150-450)
[2023-03-25] MEDS: IPRATROPIUM-ALBUTEROL 3 ML NEB INHALATION SCH ×3 (08:10→21:05)
[2023-03-25] MEDS: PANTOPRAZOLE 40 MG/10 ML VIAL IVP SCH (09:12)
[2023-03-25] MEDS: ASPIRIN 300 MG SUPP RECTAL SCH (09:12)
[2023-03-25] MEDS: LEVOTHYROXINE IVP 100 MCG/5 ML VIAL IV SCH (09:13)
[2023-03-25] MEDS: FLUCONAZOLE IN NACL,ISO-OSM 100 MG in SALINE 1 50ML.BAG IVPB SCH (09:13)
--- NOTE | 2023-03-25 09:19 | P.PN ---
Subjective Progress Note Date: 03/25/23 Principal diagnosis: L5-S1 grade 2 spondylolisthesis L4 S1 spondylosis lower extremity radiculopathy Patient seen and examined this morning in ICU. Patient is resting comfortably in bed. Patient is currently on RA sat 97%. Patient continues to be diaphoretic, low-grade temperature throughout the night. Anterior abdominal surgical incision is well approximated with glue intact. No drainage. Posterior paralumbar surgical dressing CDI. Patient to continue to work with PT. Encourage use of incentive spirometer. Objective - Vital Signs Vital signs: Vital Signs Temp 99.7 F H 03/25/23 08:00 Pulse 92 03/25/23 09:00 Resp 12 03/25/23 09:00 BP 150/87 03/25/23 09:00 Pulse Ox 96 03/25/23 09:00 FiO2 35 03/23/23 08:00 Intake & Output 03/24/23 03/25/23 03/25/23 18:59 06:59 18:59 Intake Total 0822.616 2875 305 Output Total 860 1350 430 Balance 998.333 -235 -125 Weight 100 kg 108.8 kg Intake: IV 925 990 305 Dextrose 5% in Water 1, 825 900 225 000 ml @ 75 mls/hr IV . [id number] [facility] Rx#:[id number] Invasive Line 1 30 30 Invasive Line 10 30 30 Invasive Line 2 30 30 Invasive Line 7 10 Mvi, Adult No.4 with Vit 80 K 10 ml Trace (Conc-1Ml/ Dose) 1 ml Calcium Gluconate 1 gm Potassium Acetate 40 meq Potassium Phosphate 12 mmol In Amino Acid 5%-D15w 1,000 ml @ 40 mls/hr IV .Q24H [facility] Rx#:[id number] Intake, IV Titration 933.333 125 Amount Diltiazem 125 mg In 125 Sodium Chloride 0.9% 100 ml @ 10 MG/HR 10 mls/hr IV .[id number] [facility] Rx#: [id number] Mvi, Adult No.4 with Vit 933.333 K 10 ml Trace (Conc-1Ml/ Dose) 1 ml Calcium Gluconate 1 gm Potassium Acetate 40 meq Potassium Phosphate 12 mmol In Amino Acid 5%-D15w 1,000 ml @ 40 mls/hr IV .Q24H [facility] Rx#:[id number] Output: Urine 860 1350 430 Other: Voiding Method Indwelling Catheter Indwelling Catheter ABP, PAP, CO, CI - Last Documented Arterial Blood Pressure 200/72 - Exam Physical Examination General: The patient is awake and alert, in no acute distress Skin: Diaphoretic. Anterior surgical incision midline lower abdomen is well approximated with glue intact. Posterior paralumbar surgical dressing CDI. Eye: Pupils are to the lower equal, round and reactive to light, extra-ocular movements are intact; there is normal conjunctiva bilaterally. Neck: The neck is supple, there is no tenderness and ROM intact. Cardiovascular: There is a regular rate and rhythm. No murmur, rub or gallop is appreciated. Respiratory: Respirations are non-labored, breath sounds are equal. Gastrointestinal: Nontender, soft Back: There is no tenderness to palpation in the midline, paralumbar, parathoracic or buttocks region. There is no obvious deformity . Musculoskeletal: ROM limited secondary to pain and stiffness from surgical procedure. Muscle strength in all major muscle groups of bilateral upper extremities 4/5, bilateral lower extremities 3-/5. Neurological: CN 2-12 intact. There are no obvious motor or sensory deficits. Movement and coordination equal and intact. Sensory exam to light touch intact C5-T1 and intact from L2-S1. Reflexes 2/4 in bilateral upper and lower extremities. Negative Hoffmans, babinski, and clonus signs. Psychiatric: Cooperative, appropriate mood & affect, normal judgment. - Labs CBC & Chem 7: 03/25/23 07:40 03/25/23 03:40 Labs: Abnormal Lab Results - Last 24 Hours (Table) 03/24/23 03/24/23 03/24/23 Range/Units 06:00 11:10 17:15 WBC (3.8-10.6) k/uL RBC (4.30-5.90) m/uL Hgb (13.0-17.5) gm/dL Hct (39.0-53.0) % RDW (11.5-15.5) % Neutrophils # (1.3-7.7) k/uL Lymphocytes # (1.0-4.8) k/uL Sodium (137-145) mmol/L Chloride (98-107) mmol/L BUN (9-20) mg/dL Glucose (74-99) mg/dL POC Glucose (mg/dL) 191 H (70-110) mg/dL Calcium (8.4-10.2) mg/dL Vitamin B12 2660.0 H (200.0-944.0) pg/mL Procalcitonin 0.10 H (0.02-0.09) ng/mL 03/24/23 03/24/23 03/24/23 Range/Units 18:26 20:23 23:59 WBC (3.8-10.6) k/uL RBC (4.30-5.90) m/uL Hgb (13.0-17.5) gm/dL Hct (39.0-53.0) % RDW (11.5-15.5) % Neutrophils # (1.3-7.7) k/uL Lymphocytes # (1.0-4.8) k/uL Sodium (137-145) mmol/L Chloride (98-107) mmol/L BUN (9-20) mg/dL Glucose (74-99) mg/dL POC Glucose (mg/dL) 189 H 169 H 145 H (70-110) mg/dL Calcium (8.4-10.2) mg/dL Vitamin B12 (200.0-944.0) pg/mL Procalcitonin (0.02-0.09) ng/mL 03/25/23 03/25/23 03/25/23 Range/Units 03:40 03:40 06:42 WBC 15.0 H (3.8-10.6) k/uL RBC 3.56 L (4.30-5.90) m/uL Hgb 11.1 L (13.0-17.5) gm/dL Hct 34.8 L (39.0-53.0) % RDW 15.9 H (11.5-15.5) % Neutrophils # 13.9 H (1.3-7.7) k/uL Lymphocytes # 0.5 L (1.0-4.8) k/uL Sodium 148 H (137-145) mmol/L Chloride 121 H (98-107) mmol/L BUN 29 H (9-20) mg/dL Glucose 155 H (74-99) mg/dL POC Glucose (mg/dL) 176 H (70-110) mg/dL Calcium 7.6 L (8.4-10.2) mg/dL Vitamin B12 (200.0-944.0) pg/mL Procalcitonin (0.02-0.09) ng/mL Microbiology - Last 24 Hours (Table) 03/20/23 22:45 Gram Stain - Final Gastric Aspirate Sputum Culture - Final Methicillin resist S. aureus Assessment and Plan Assessment: Postop day 12: Part I: L5-S1 ALIF with Part II: L4-S1 posteriolateral and interbody fusion. Sepsis presentation, new Hospital-acquired pneumonia Post-Op Illeus resolving Lumbar spondylolithesis Plan: -Appreciate networks computer consultant and team management. -Activity: Up to chair with all meals. Daily PT/OT -Pain control: Adequate at this time -Meds: reviewed -GI ppx: senna -Maintain dennis and continue to record output every shift -DVT PPX: per medicine -Hygiene: Maintain dressing clean and dry. Meticulous cleaning after BMs away from the incision site -Dispo: Pateint is cleared from an Orthopedic standpoint, no further recommendations. *I reviewed and discussed this case with my attending Dr. Villa, whom has reviewed this chart and films and is in agreement with assessment and plan of care as outlined above. I have personally seen and examined the patient, performed the documentation and the assessment and plan as written. Number of minutes spent on the visit: 20m.
--- NOTE | 2023-03-25 10:05 | P.PN ---
Subjective Progress Note Date: 03/25/23 Principal diagnosis: Respiratory failure. Acute hypoxic respiratory failure, abdominal sepsis, pneumonia This is a 67-year-old white male, known to have history of lymphoma with stem cell transplant, initially admitted on 03/2023. Patient was admitted with lower extremities numbness and low back pain, underwent anterior retroperitoneal exposure performed by Dr. beckford,, he also underwent anterior lumbar interbody fusion L5-S1 insertion of interbody device, posterior lateral and interbody fusion L4-L5, posterior lateral instrumented fusion L5-S1, laminoforaminotomy for decompression and cage placement L4-L5, use of [place] navigation for screw placement. His immediate postoperative course was uneventful, on 03/15/2023, patient was seen by cardiology for him than as stated the elevated myocardial infarction and he was seen by many other consultants including general surgery for small bowel obstruction/ileus. Cardiology recommended heparin, and general surgery recommended treatment with the Reglan and simethicone. Over the last 1 week, patient has been gradually getting worse, and he has been developing over the last 2 days worsening shortness of breath. Patient was placed on multiple antibiotics, broad-spectrum antibiotics after he was seen by infectious disease on 03/18/2023, patient was treated for presumptive abdominal sepsis and possible pneumonia. Cultures have been negative/mostly blood cultures and no other cultures were sent. Patient has been receiving cefepime, vancomycin, and Flagyl. Chest x-ray on 03/18/2023 showed minimal basilar atelectasis is no clear- cut evidence of infiltrate however chest x-ray on 03/19/2023 showed infiltrates involving the left lower lobe, left midlung, and the right lower lobe. Clearly the patient developed significant airspace disease while inpatient. While on the medical floor, patient was complaining of abdominal pain and distention, CT abdomen done yesterday showed inflammatory changes in the left lower quadrant extending towards the inguinal region and small tiny amount of free air which was evaluated by general surgery and felt this is most likely related to his recent retroperitoneal approach/surgery. Yesterday I was notified about this patient having worsening shortness of breath, hypoxia, tachycardia, and hypertension. I recommended transferring the patient to the ICU and a few hours after he was in the ICU, he continued to do poorly early this morning the patient had to be intubated and placed on mechanical ventilation. He is now on tidal volume of 500 assist control rate 20 FiO2 50% and PEEP of 5. ABG post intubation showed a pO2 of 231 pCO2 42 pH of 7.38. Hence FiO2 was cut down to 50%. WBC count is 12.8 hemoglobin is 11.1, basic metabolic profile is normal except for potassium of 3.4 BUN is 22 creatinine 1.11. Chest x-ray clearly shows bilateral air space disease consistent with pneumonia or possibly ARDS patient is now on propofol at 45 mcg/kg/m his IV fluid is a 100 mL an hour in the form of 0.9 normal saline, his also on Cardizem drip. Patient was reevaluated today on 03/21/2023, remains in the ICU intubated and mechanically ventilated. He is on assist control rate of 20 tidal volume 500 FiO2 50% and PEEP of 5. His ABG showed a pO2 of 100 pCO2 36 pH of 7.46, FiO2 was cut down to 45%. Patient remains on Cardizem drip at 10 mg per hour and I cut it down to 5 he is on propofol at 45 mcg/kg/m he is also on heparin as per cardiology. Antibiotics moreno patient is receiving vancomycin and Flagyl. TPN to be started today, and again I will cut down his Cardizem to 5 mg per hour. On lower sedation, the patient seems to be comprehending, and he follows simple instructions. Chest x-ray continues to show significant infiltrate in the left lower lobe and right lower lobe, hence I don't believe the patient is quite ready for weaning and extubation at this point in time. WBC count is 12.4 hemoglobin is 10.6, PTT is 88. Electronic for normal renal profile is normal blood sugar is 163 Reevaluated today on 03/22/2023, patient remains in the ICU intubated and mechanically ventilated sedated on propofol at 40 mcg/kg/m remains on Cardizem at 5 mg per hour remains on heparin as per cardiology. He is on assist control rate of 20, tidal volume 500 FiO2 40% PEEP of 5. ABG showed a pO2 of 103 pCO2 36 pH of 7.46, hence I cut down the FiO2 to 35%. Patient is also on TPN at 50 mL per hour. His chest x-ray is showing slight improvement in his infiltrate nonetheless continues to have significant consolidation in the left lower lobe, his right-sided pneumonia seems to be improving. Today the plan is to start addressing her mental status off sedation and decide whether the patient could be considered for weaning in the next 24 hours. Sedation holiday will be given today, and only assessment of mental status to be done today. WBC count remains at the time at 14.4 hemoglobin is 10.6 PTT is 53. Electrolytes are normal except for slightly elevated sodium of 146 and the rest of the labs are unremarkable. Progress note dated 03/23/2023. 67-year-old male who was admitted back on March 13. The patient is currently in the intensive care unit, being admitted there on March 19, and intubated on March 20. He remains on the mechanical ventilator. The patient is on volume assist control, rate 20, tidal volume 500, FiO2 35%, with a PEEP of 5. Blood gases show pO2 of 105, pCO2 34, and pH is 7.4. The patient is currently on saline at 20 mL an hour, a Cardizem drip at 5 mg an hour, peripheral parenteral nutrition at 40 mL an hour, and heparin via weightbase protocol. White count is 13.1, hemoglobin 10.5, hematocrit 33.2, and a platelet count 264,000. Sodium 147, potassium 4.1, chlorides 119, CO2 22, anion gap 6, BUN 41, and creatinine 1.02. Blood cultures have been negative. Gastric aspirate was positive for staph aureus. Chest x-ray shows stable bilateral consolidations and small effusions. Progress note dated 03/24/2023. 67-year-old male was admitted back on March 13. The patient is in the intensive care unit, and has been here since March 19. He was intubated the following day on March 20. Yesterday, his weaning parameters were excellent, and he was successfully extubated. He is currently on 2 L of oxygen by nasal cannula. He is getting Cardizem drip at 10 mg an hour, and TPN at 40 mL an hour. He's currently on D5 half-normal saline at 75 mL an hour, which will be converted D5W at 75 mL an hour. The patient failed his bedside swallow evaluation. White count of 17, hemoglobin 11.1, hematocrit 36.3, and platelet count 259,000. Sodium 151, potassium 4.3, chlorides 119, CO2 22, anion gap 10, BUN 39, and creatinine 0.98. Troponins were 0.443 and 0.445. From 811, the gastric aspirate Gram stain was positive for methicillin-resistant staph aureus. The patient's chest x-ray shows bilateral infiltrates, and small effusion, and is stable. Progress note dated 03/25/2023. 67-year-old male admitted back on March 13, and, has been in the intensive care unit, since March 19. He was intubated for respiratory failure on March 20, and, was successfully extubated on March 23. Currently, the patient is on room air. He's getting Cardizem at 10 mg an hour, and TPN at 40 mL an hour. He is getting D5W at 75 mL an hour, because of hypernatremia and hyperchloremia. Because of a rash, we'll discontinue vancomycin, and start him on Zyvox, 600 mg twice a day. White count 15, hemoglobin 11.1, hematocrit 34.8, and platelet count is 233,000. Sodium 148, potassium 4.2, chlorides 121, CO2 20, BUN 29, creatinine 0.95. Methicillin-resistant staph aureus was noted in the sputum, dated March 20. No follow-up chest x-ray today. Objective - Vital Signs Vital signs: Vital Signs Temp 99.7 F H 03/25/23 08:00 Pulse 92 03/25/23 09:00 Resp 12 03/25/23 09:00 BP 150/87 03/25/23 09:00 Pulse Ox 96 03/25/23 09:00 FiO2 35 03/23/23 08:00 Intake & Output 03/24/23 03/25/23 03/25/23 18:59 06:59 18:59 Intake Total 8412.396 0010 335 Output Total 860 1350 430 Balance 998.333 -235 -95 Weight 100 kg 108.8 kg Intake: IV 925 990 335 Dextrose 5% in Water 1, 825 900 225 000 ml @ 75 mls/hr IV . [id number] Rx#:[id number] Invasive Line 1 30 30 10 Invasive Line 10 30 30 10 Invasive Line 2 30 30 10 Invasive Line 7 10 Mvi, Adult No.4 with Vit 80 K 10 ml Trace (Conc-1Ml/ Dose) 1 ml Calcium Gluconate 1 gm Potassium Acetate 40 meq Potassium Phosphate 12 mmol In Amino Acid 5%-D15w 1,000 ml @ 40 mls/hr IV .Q24H [facility] Rx#:[id number] Intake, IV Titration 933.333 125 Amount Diltiazem 125 mg In 125 Sodium Chloride 0.9% 100 ml @ 10 MG/HR 10 mls/hr IV .[id number] [facility] Rx#: [id number] Mvi, Adult No.4 with Vit 933.333 K 10 ml Trace (Conc-1Ml/ Dose) 1 ml Calcium Gluconate 1 gm Potassium Acetate 40 meq Potassium Phosphate 12 mmol In Amino Acid 5%-D15w 1,000 ml @ 40 mls/hr IV .Q24H [facility] Rx#:[id number] Output: Urine 860 1350 430 Other: Voiding Method Indwelling Catheter Indwelling Catheter ABP, PAP, CO, CI - Last Documented Arterial Blood Pressure 200/72 - Exam No acute distress, awake, a bit lethargic, on room air HEENT examination is grossly unremarkable. Neck supple. Full range of motion. No adenopathy thyromegaly or neck vein distention. Cardiovascular examination reveals regular rhythm rate. S1-S2 normal. No S3 or S4. No discernible murmur noted. Heart sounds are distant. Heart rate 90 bpm. Lungs reveal scattered bilateral rhonchi. No wheezes or crackles. Breath sounds are equal bilaterally. Saturations are 96 %. Abdomen soft with bowel sounds. No masses or tenderness. Extremities are intact. No cyanosis clubbing or edema. Skin reveals a macular papular erythematous rash. Neurologic examination is brief but nonfocal. - Labs CBC & Chem 7: 03/25/23 07:40 03/25/23 03:40 Labs: Abnormal Lab Results - Last 24 Hours (Table) 03/24/23 03/24/23 03/24/23 Range/Units 06:00 11:10 17:15 WBC (3.8-10.6) k/uL RBC (4.30-5.90) m/uL Hgb (13.0-17.5) gm/dL Hct (39.0-53.0) % RDW (11.5-15.5) % Neutrophils # (1.3-7.7) k/uL Lymphocytes # (1.0-4.8) k/uL Sodium (137-145) mmol/L Chloride (98-107) mmol/L BUN (9-20) mg/dL Glucose (74-99) mg/dL POC Glucose (mg/dL) 191 H (70-110) mg/dL Calcium (8.4-10.2) mg/dL Vitamin B12 2660.0 H (200.0-944.0) pg/mL Procalcitonin 0.10 H (0.02-0.09) ng/mL 03/24/23 03/24/23 03/24/23 Range/Units 18:26 20:23 23:59 WBC (3.8-10.6) k/uL RBC (4.30-5.90) m/uL Hgb (13.0-17.5) gm/dL Hct (39.0-53.0) % RDW (11.5-15.5) % Neutrophils # (1.3-7.7) k/uL Lymphocytes # (1.0-4.8) k/uL Sodium (137-145) mmol/L Chloride (98-107) mmol/L BUN (9-20) mg/dL Glucose (74-99) mg/dL POC Glucose (mg/dL) 189 H 169 H 145 H (70-110) mg/dL Calcium (8.4-10.2) mg/dL Vitamin B12 (200.0-944.0) pg/mL Procalcitonin (0.02-0.09) ng/mL 03/25/23 03/25/23 03/25/23 Range/Units 03:40 03:40 06:42 WBC 15.0 H (3.8-10.6) k/uL RBC 3.56 L (4.30-5.90) m/uL Hgb 11.1 L (13.0-17.5) gm/dL Hct 34.8 L (39.0-53.0) % RDW 15.9 H (11.5-15.5) % Neutrophils # 13.9 H (1.3-7.7) k/uL Lymphocytes # 0.5 L (1.0-4.8) k/uL Sodium 148 H (137-145) mmol/L Chloride 121 H (98-107) mmol/L BUN 29 H (9-20) mg/dL Glucose 155 H (74-99) mg/dL POC Glucose (mg/dL) 176 H (70-110) mg/dL Calcium 7.6 L (8.4-10.2) mg/dL Vitamin B12 (200.0-944.0) pg/mL Procalcitonin (0.02-0.09) ng/mL Microbiology - Last 24 Hours (Table) 03/20/23 22:45 Gram Stain - Final Gastric Aspirate Sputum Culture - Final Methicillin resist S. aureus Assessment and Plan Assessment: Acute hypoxemic respiratory failure, secondary to hospital-acquired pneumonia, S/P intubation and mechanical ventilation, on 03/20/2023, with successful e xtubation on 03/23/2023. Methicillin-resistant staph aureus pneumonia/tracheobronchitis. Acute abdominal pain, with small bowel obstruction/ileus. Acute sepsis, likely related to underlying pneumonia. Recent elective lumbosacral fusion, and decompression, March 2023, with a complicated postoperative course. Acute metabolic encephalopathy. History of lymphoma, S/P stem cell transplant. Acute non-ST segment elevation myocardial infarction. Paroxysmal atrial fibrillation. Plan: Plan dated 03/23/2023. The patient has been intubated since March 20. Despite being on sedation, the patient is somewhat responsive. The patient will have a spontaneous breathing trial today. We'll place him on pressure support of 5, and CPAP of 5. After about 20 or 30 minutes, the patient will set a weaning parameters, including a rapid shallow breathing index, and cuff leak test. Labs, x-rays, medications are reviewed. The patient remains on Cardizem 5 mg an hour, and heparin. The patient remains on cefepime. The patient also continues on peripheral parenteral nutrition. Additional recommendations and suggestions are forthcoming. Plan dated 03/24/2023. The patient. Watt daily interruption of sedation yesterday, and his spontaneous breathing trial, and was successfully extubated. Labs, x-rays, and medications are all reviewed. The patient continues on 2 L of oxygen. The patient's IV will be changed from D5 with half-normal saline to dextrose, at 75 mL an hour, because of the patient's hypernatremia. He remains on Cardizem at 10 mg an hour. Additional recommendations and suggestions are forthcoming. He did fail his bedside swallow evaluation. Plan dated 03/25/2023. The patient is seen today in room 255. The patient has been weaned down to room air. He continues on Cardizem at 10 mg an hour for his atrial fibrillation. He is getting TPN at 40 mL an hour. He will continue with D5W at 75 mL an hour, for his hypernatremia. Because of his rash, vancomycin was discontinued in favor of Zyvox. Additional recommendations and suggestions are forthcoming. Labs, x-rays, and medications are reviewed. The patient overall prognosis is guarded. Time with Patient: Greater than 30
--- NOTE | 2023-03-25 10:10 | P.PN ---
Subjective Progress Note Date: 03/25/23 Pt is doing well today. Saturating well on nasal cannula. BPs better controlled to 150/87 General: intubated, sedated HEENT: normocephalic, atraumatic, no tracheal deviation Respiratory: symmetric chest rise, no cyanosis, ventilator dependent CVS: perfusing all extremities, no distal gangrene, no pitting edema GI: soft, ND : no SPT, no CVAT, dennis is present Neuro: sedated Hospital course: Patient is a 67-year-old male with a PMH of hypothyroidism, hypertension, and degenerative disc disease with chronic lower back pain who was admitted for an elective lumbosacral fusion and decompression. The patient underwent a 2-stage procedure with anterior and posterior approaches on 03/13. After surgery patient developed ileus and A. fib with RVR and also found to have non-ST elevation VT. Gen. surgery and cardiology were consulted on the patient. The patient had NG tube placed for ileus and was started on Reglan 10 mg every 6 hours. Patient was having high-grade fevers and tachycardia on 03/18 was started on vancomycin, cefepime, Flagyl. Assessment: Severe sepsis from Hospital Acquired Pneumonia Non-ST elevation VT, type II Paroxysmal atrial fibrillation with RVR Postoperative ileus Status post lumbosacral decompression and fusion surgery Plan: CBC demonstrates leukocytosis to 15, hemoglobin of 11.1 Basic metabolic panel shows potassium of 4.2, Na 148, BUN 29 Chest x-ray from 03/24 is personally interpreted, left lower lobe infiltrate and right lower lobe infiltrate, small left pleural effusion BNP = 9410, Procalcitonin = 0.1 Abx switched to linezolid 600mg BID and fluconazole 100mg daily TPN has been initiated D5W initiated for hypernatremia has been discontinued Levothyroxine 125mcg IV daily continues Pt is full code Objective - Vital Signs Vital signs: Vital Signs Temp 99.7 F H 03/25/23 08:00 Pulse 92 03/25/23 09:00 Resp 12 03/25/23 09:00 BP 150/87 03/25/23 09:00 Pulse Ox 96 03/25/23 09:00 FiO2 35 03/23/23 08:00 Intake & Output 03/24/23 03/25/23 03/25/23 18:59 06:59 18:59 Intake Total 7257.963 4454 335 Output Total 860 1350 430 Balance 998.333 -235 -95 Weight 100 kg 108.8 kg Intake: IV 925 990 335 Dextrose 5% in Water 1, 825 900 225 000 ml @ 75 mls/hr IV . [id number] [facility] Rx#:[id number] Invasive Line 1 30 30 10 Invasive Line 10 30 30 10 Invasive Line 2 30 30 10 Invasive Line 7 10 Mvi, Adult No.4 with Vit 80 K 10 ml Trace (Conc-1Ml/ Dose) 1 ml Calcium Gluconate 1 gm Potassium Acetate 40 meq Potassium Phosphate 12 mmol In Amino Acid 5%-D15w 1,000 ml @ 40 mls/hr IV .Q24H [facility] Rx#:[id number] Intake, IV Titration 933.333 125 Amount Diltiazem 125 mg In 125 Sodium Chloride 0.9% 100 ml @ 10 MG/HR 10 mls/hr IV .[id number] [facility] Rx#: [id number] Mvi, Adult No.4 with Vit 933.333 K 10 ml Trace (Conc-1Ml/ Dose) 1 ml Calcium Gluconate 1 gm Potassium Acetate 40 meq Potassium Phosphate 12 mmol In Amino Acid 5%-D15w 1,000 ml @ 40 mls/hr IV .Q24H [facility] Rx#:[id number] Output: Urine 860 1350 430 Other: Voiding Method Indwelling Catheter Indwelling Catheter ABP, PAP, CO, CI - Last Documented Arterial Blood Pressure 200/72 - Labs CBC & Chem 7: 03/25/23 07:40 03/25/23 03:40 Labs: Abnormal Lab Results - Last 24 Hours (Table) 03/24/23 03/24/23 03/24/23 Range/Units 06:00 11:10 17:15 WBC (3.8-10.6) k/uL RBC (4.30-5.90) m/uL Hgb (13.0-17.5) gm/dL Hct (39.0-53.0) % RDW (11.5-15.5) % Neutrophils # (1.3-7.7) k/uL Lymphocytes # (1.0-4.8) k/uL Sodium (137-145) mmol/L Chloride (98-107) mmol/L BUN (9-20) mg/dL Glucose (74-99) mg/dL POC Glucose (mg/dL) 191 H (70-110) mg/dL Calcium (8.4-10.2) mg/dL Vitamin B12 2660.0 H (200.0-944.0) pg/mL Procalcitonin 0.10 H (0.02-0.09) ng/mL 03/24/23 03/24/23 03/24/23 Range/Units 18:26 20:23 23:59 WBC (3.8-10.6) k/uL RBC (4.30-5.90) m/uL Hgb (13.0-17.5) gm/dL Hct (39.0-53.0) % RDW (11.5-15.5) % Neutrophils # (1.3-7.7) k/uL Lymphocytes # (1.0-4.8) k/uL Sodium (137-145) mmol/L Chloride (98-107) mmol/L BUN (9-20) mg/dL Glucose (74-99) mg/dL POC Glucose (mg/dL) 189 H 169 H 145 H (70-110) mg/dL Calcium (8.4-10.2) mg/dL Vitamin B12 (200.0-944.0) pg/mL Procalcitonin (0.02-0.09) ng/mL 03/25/23 03/25/23 03/25/23 Range/Units 03:40 03:40 06:42 WBC 15.0 H (3.8-10.6) k/uL RBC 3.56 L (4.30-5.90) m/uL Hgb 11.1 L (13.0-17.5) gm/dL Hct 34.8 L (39.0-53.0) % RDW 15.9 H (11.5-15.5) % Neutrophils # 13.9 H (1.3-7.7) k/uL Lymphocytes # 0.5 L (1.0-4.8) k/uL Sodium 148 H (137-145) mmol/L Chloride 121 H (98-107) mmol/L BUN 29 H (9-20) mg/dL Glucose 155 H (74-99) mg/dL POC Glucose (mg/dL) 176 H (70-110) mg/dL Calcium 7.6 L (8.4-10.2) mg/dL Vitamin B12 (200.0-944.0) pg/mL Procalcitonin (0.02-0.09) ng/mL Microbiology - Last 24 Hours (Table) 03/20/23 22:45 Gram Stain - Final Gastric Aspirate Sputum Culture - Final Methicillin resist S. aureus
[2023-03-25] MEDS: LINEZOLID 600 MG in DEXTROSE/WATER 1 300ML.BAG IVPB SCH ×2 (10:29→21:37)
[2023-03-25 12:27] LABS: Glucose,Whole Blood 215 mg/dL (70-110)
--- NOTE | 2023-03-25 12:33 | P.PN ---
Subjective Progress Note Date: 03/25/23 Principal diagnosis: Atrial flutter The patient is a 67-year-old gentleman who was admitted to the hospital and underwent an L5-S1 fusion complicated by ileus and subsequently we involved in the care of the patient because of paroxysmal atrial fibrillation/atrial flutter and also elevated troponin. The echo revealed mildly impaired LV function with EF around 45% was mild valvular pathology. March 232022 The patient was seen and evaluated this morning. He continues to be intubated on mechanical ventilation. He continues to be nothing by mouth. Hemodynamically he is stable. Currently he is on Cardizem IV as well as heparin IV as well as metoprolol IV. We will continue the current medical regimen until the patient is not nothing by mouth anymore then at that point we will switch the patient into oral medication. I believe coronary angiogram need to be done to rule out severe CAD 1 sedation has better recovery. Currently no indication of any hemodynamic instability. He is maintaining normal sinus mechanism. March 242022 The patient was seen and evaluated this morning. Yesterday he did have an episode of chest pressure. The EKG revealed sinus mechanism with T-wave inversion in the inferolateral leads. He continues to be nothing by mouth. H eparin was systolic yesterday because of gastrointestinal bleeding which is currently under investigation. I am going to give the patient aspirin rectally. He is on beta rubi IV. He is on Cardizem IV. He cannot be on any statin at this point. I believe that the patient need to undergo coronary angiogram once we know that he is able to take his antiplatelet orally in case he needs to undergo an angioplasty. Otherwise I would continue the current medical regimen and continue follow-up with the patient. March 252022 The patient was seen and evaluated. He is in normal sinus mechanism. He continues to be on Cardizem IV. He underwent a swallow evaluation yesterday but he felt that. For that reason we will continue the current medical regimen including the current dose of Cardizem IV. He is maintaining normal sinus mechanism. Anticoagulation on hold because of gastrointestinal bleeding. No chest pain or chest discomfort and no shortness of breath. The hemoglobin this morning is 11.1. The examination is remarkable for regular rhythm with diminished breathing sounds bilaterally and no lower extremities edema noted Assessment Status post L5 to S1 fusion Ileus Paroxysmal atrial fibrillation/flutter Acute non-ST elevation myocardial infarction Mild cardiomyopathy Plan Continue the current medical regimen Start the patient on aspirin rectally Hold heparin in the light of gastrointestinal bleeding Continue beta rubi IV Continue Cardizem IV Start the patient on hydralazine when necessary for hypertension Follow-up with the patient Objective - Vital Signs Vital signs: Vital Signs Temp 98.7 F 03/25/23 12:00 Pulse 101 H 03/25/23 12:00 Resp 10 L 03/25/23 12:00 BP 150/87 03/25/23 12:00 Pulse Ox 97 03/25/23 11:00 FiO2 35 03/23/23 08:00 Intake & Output 03/24/23 03/25/23 03/25/23 18:59 06:59 18:59 Intake Total 7994.865 0568 1060 Output Total 860 1350 600 Balance 998.333 -235 460 Weight 100 kg 108.8 kg Intake: IV 925 990 710 Dextrose 5% in Water 1, 825 900 450 000 ml @ 75 mls/hr IV . [id number] [facility] Rx#:[id number] Invasive Line 1 30 30 20 Invasive Line 10 30 30 20 Invasive Line 2 30 30 20 Invasive Line 7 10 Mvi, Adult No.4 with Vit 200 K 10 ml Trace (Conc-1Ml/ Dose) 1 ml Calcium Gluconate 1 gm Potassium Acetate 40 meq Potassium Phosphate 12 mmol In Amino Acid 5%-D15w 1,000 ml @ 40 mls/hr IV .Q24H [facility] Rx#:[id number] Intake, IV Titration 933.333 125 350 Amount Diltiazem 125 mg In 125 Sodium Chloride 0.9% 100 ml @ 10 MG/HR 10 mls/hr IV .[id number] [facility] Rx#: [id number] Fluconazole in NaCl,Iso- 50 Osm 100 mg In Saline 1 50ml.bag @ 50 mls/hr IVPB DAILY [facility] Rx#:[id number] Linezolid 600 mg In 300 Dextrose/Water 1 300ml. bag @ 150 mls/hr IVPB Q12HR [facility] Rx#:[id number] Mvi, Adult No.4 with Vit 933.333 K 10 ml Trace (Conc-1Ml/ Dose) 1 ml Calcium Gluconate 1 gm Potassium Acetate 40 meq Potassium Phosphate 12 mmol In Amino Acid 5%-D15w 1,000 ml @ 40 mls/hr IV .Q24H [facility] Rx#:[id number] Output: Urine 860 1350 600 Other: Voiding Method Indwelling Catheter Indwelling Catheter Indwelling Catheter # Bowel Movements 1 ABP, PAP, CO, CI - Last Documented Arterial Blood Pressure 200/72 - Labs CBC & Chem 7: 03/25/23 07:40 03/25/23 03:40 Labs: Abnormal Lab Results - Last 24 Hours (Table) 03/24/23 03/24/23 03/24/23 Range/Units 06:00 17:15 18:26 WBC (3.8-10.6) k/uL RBC (4.30-5.90) m/uL Hgb (13.0-17.5) gm/dL Hct (39.0-53.0) % RDW (11.5-15.5) % Neutrophils # (1.3-7.7) k/uL Lymphocytes # (1.0-4.8) k/uL Sodium (137-145) mmol/L Chloride (98-107) mmol/L BUN (9-20) mg/dL Glucose (74-99) mg/dL POC Glucose (mg/dL) 189 H (70-110) mg/dL Calcium (8.4-10.2) mg/dL Vitamin B12 2660.0 H (200.0-944.0) pg/mL Procalcitonin 0.10 H (0.02-0.09) ng/mL 03/24/23 03/24/23 03/25/23 Range/Units 20:23 23:59 03:40 WBC (3.8-10.6) k/uL RBC (4.30-5.90) m/uL Hgb (13.0-17.5) gm/dL Hct (39.0-53.0) % RDW (11.5-15.5) % Neutrophils # (1.3-7.7) k/uL Lymphocytes # (1.0-4.8) k/uL Sodium 148 H (137-145) mmol/L Chloride 121 H (98-107) mmol/L BUN 29 H (9-20) mg/dL Glucose 155 H (74-99) mg/dL POC Glucose (mg/dL) 169 H 145 H (70-110) mg/dL Calcium 7.6 L (8.4-10.2) mg/dL Vitamin B12 (200.0-944.0) pg/mL Procalcitonin (0.02-0.09) ng/mL 03/25/23 03/25/23 03/25/23 Range/Units 03:40 06:42 12:15 WBC 15.0 H (3.8-10.6) k/uL RBC 3.56 L (4.30-5.90) m/uL Hgb 11.1 L (13.0-17.5) gm/dL Hct 34.8 L (39.0-53.0) % RDW 15.9 H (11.5-15.5) % Neutrophils # 13.9 H (1.3-7.7) k/uL Lymphocytes # 0.5 L (1.0-4.8) k/uL Sodium (137-145) mmol/L Chloride (98-107) mmol/L BUN (9-20) mg/dL Glucose (74-99) mg/dL POC Glucose (mg/dL) 176 H 215 H (70-110) mg/dL Calcium (8.4-10.2) mg/dL Vitamin B12 (200.0-944.0) pg/mL Procalcitonin (0.02-0.09) ng/mL Microbiology - Last 24 Hours (Table) 03/20/23 22:45 Gram Stain - Final Gastric Aspirate Sputum Culture - Final Methicillin resist S. aureus
--- NOTE | 2023-03-25 14:17 | P.PN ---
Subjective Progress Note Date: 03/25/23 I am following-up with patient and he feels he is doing better. Per nurse he had mild resting tremor. Objective - Vital Signs Vital signs: Vital Signs Temp 98.7 F 03/25/23 12:00 Pulse 101 H 03/25/23 14:00 Resp 16 03/25/23 14:00 BP 157/98 03/25/23 14:00 Pulse Ox 97 03/25/23 14:00 FiO2 35 03/23/23 08:00 Intake & Output 03/24/23 03/25/23 03/25/23 18:59 06:59 18:59 Intake Total 0849.805 0993 1290 Output Total 860 1350 885 Balance 998.333 -235 405 Weight 100 kg 108.8 kg Intake: IV 925 990 940 Dextrose 5% in Water 1, 825 900 600 000 ml @ 75 mls/hr IV . [id number] [facility] Rx#:[id number] Invasive Line 1 30 30 20 Invasive Line 10 30 30 20 Invasive Line 2 30 30 20 Invasive Line 7 10 Mvi, Adult No.4 with Vit 280 K 10 ml Trace (Conc-1Ml/ Dose) 1 ml Calcium Gluconate 1 gm Potassium Acetate 40 meq Potassium Phosphate 12 mmol In Amino Acid 5%-D15w 1,000 ml @ 40 mls/hr IV .Q24H [facility] Rx#:[id number] Intake, IV Titration 933.333 125 350 Amount Diltiazem 125 mg In 125 Sodium Chloride 0.9% 100 ml @ 10 MG/HR 10 mls/hr IV .[id number] [facility] Rx#: [id number] Fluconazole in NaCl,Iso- 50 Osm 100 mg In Saline 1 50ml.bag @ 50 mls/hr IVPB DAILY [facility] Rx#:[id number] Linezolid 600 mg In 300 Dextrose/Water 1 300ml. bag @ 150 mls/hr IVPB Q12HR [facility] Rx#:[id number] Mvi, Adult No.4 with Vit 933.333 K 10 ml Trace (Conc-1Ml/ Dose) 1 ml Calcium Gluconate 1 gm Potassium Acetate 40 meq Potassium Phosphate 12 mmol In Amino Acid 5%-D15w 1,000 ml @ 40 mls/hr IV .Q24H [facility] Rx#:[id number] Output: Urine 860 1350 885 Other: Voiding Method Indwelling Catheter Indwelling Catheter Indwelling Catheter # Bowel Movements 1 ABP, PAP, CO, CI - Last Documented Arterial Blood Pressure 200/72 - Exam General: Patient is lying in bed and is not in acute distress. Psych: Flat affect. Neuro: Somewhat limited because of his cooperation. The patient is awake alert oriented to self, place and time. He is somewhat slow in responding but seems better today compared to yesterday.. He's able to follow simple commands. No aphasia from the limited language. No neglect. Pupils are round equal reactive to light. Visual vernon are full to confrontation. Extraocular movement is intact no nystagmus. No facial weakness but as stated above he has a flat affect. No dysarthria. Motor is he's moving all extremities above gravity. Her to assess individual muscle strength because of his cooperation. No resting tremor is noted (better than yesterday). Sensation is normal to touch. - Labs CBC & Chem 7: 03/25/23 07:40 03/25/23 03:40 Labs: Abnormal Lab Results - Last 24 Hours (Table) 03/24/23 03/24/23 03/24/23 Range/Units 06:00 17:15 18:26 WBC (3.8-10.6) k/uL RBC (4.30-5.90) m/uL Hgb (13.0-17.5) gm/dL Hct (39.0-53.0) % RDW (11.5-15.5) % Neutrophils # (1.3-7.7) k/uL Lymphocytes # (1.0-4.8) k/uL Sodium (137-145) mmol/L Chloride (98-107) mmol/L BUN (9-20) mg/dL Glucose (74-99) mg/dL POC Glucose (mg/dL) 189 H (70-110) mg/dL Calcium (8.4-10.2) mg/dL Vitamin B12 2660.0 H (200.0-944.0) pg/mL Procalcitonin 0.10 H (0.02-0.09) ng/mL 03/24/23 03/24/23 03/25/23 Range/Units 20:23 23:59 03:40 WBC (3.8-10.6) k/uL RBC (4.30-5.90) m/uL Hgb (13.0-17.5) gm/dL Hct (39.0-53.0) % RDW (11.5-15.5) % Neutrophils # (1.3-7.7) k/uL Lymphocytes # (1.0-4.8) k/uL Sodium 148 H (137-145) mmol/L Chloride 121 H (98-107) mmol/L BUN 29 H (9-20) mg/dL Glucose 155 H (74-99) mg/dL POC Glucose (mg/dL) 169 H 145 H (70-110) mg/dL Calcium 7.6 L (8.4-10.2) mg/dL Vitamin B12 (200.0-944.0) pg/mL Procalcitonin (0.02-0.09) ng/mL 03/25/23 03/25/23 03/25/23 Range/Units 03:40 06:42 12:15 WBC 15.0 H (3.8-10.6) k/uL RBC 3.56 L (4.30-5.90) m/uL Hgb 11.1 L (13.0-17.5) gm/dL Hct 34.8 L (39.0-53.0) % RDW 15.9 H (11.5-15.5) % Neutrophils # 13.9 H (1.3-7.7) k/uL Lymphocytes # 0.5 L (1.0-4.8) k/uL Sodium (137-145) mmol/L Chloride (98-107) mmol/L BUN (9-20) mg/dL Glucose (74-99) mg/dL POC Glucose (mg/dL) 176 H 215 H (70-110) mg/dL Calcium (8.4-10.2) mg/dL Vitamin B12 (200.0-944.0) pg/mL Procalcitonin (0.02-0.09) ng/mL Assessment and Plan Assessment: * Altered mental status due to multifactorial: Septic encephalopathy and toxic metabolic encephalopathy--mentation improving but is slow to respond * Right upper extremity resting tremor with flat affect and per has worsened during this admission since surgery and prior was subtle: Underlying questionable diagnosis of Parkinson's disease (PD), (per does not have PD diagnosis prior to this)--today felt tremor has improved and unsure if due to metabolic issues. * Sepsis likely from abdominal source. * Acute hypoxic respiratory failure secondary to pneumonia, possible ARDS * Acute abdominal pain with small bowel obstruction/ileus being addressed by surgery on the case. * Paroxysmal atrial fibrillation * History of lymphoma and previous stem cell transplant. * Acute non-ST elevated MO * Status post elective lumbosacral fusion and decompression 03/13/2023. Plan: TSH: 3.68, vitamin B-12: 2660, folate: 16.80 and ammonia level <9.0 Pending MRI of the brain to rule out any central insult as result of resting tremor vs underlying Parkinson's disease. Will defer the rest of management to primary team and other specialist. The plan is discussed with patient and his nurse. Time with Patient: Less than 30
[2023-03-25] MEDS: METOPROLOL TARTRATE 25 MG TAB PO SCH ×2 (15:35→20:23)
[2023-03-25] MEDS: ACETAMINOPHEN TAB 325 MG TAB PO PRN ×2 (16:55→21:47)
[2023-03-25 17:08] LABS: Glucose,Whole Blood 170 mg/dL (70-110)
[2023-03-25] MEDS: NYSTATIN 100,000 UNIT/ML SUSP 500,000 UNIT/5 ML CUP PO SCH ×2 (17:16→21:37)
[2023-03-25] MEDS: MVI, ADULT NO.4 WITH VIT K 10 ML, TRACE (CONC-1ML/DOSE) 1 ML, CALCIUM GLUCONATE 1 GM, P... IV SCH ×6 (17:17)
[2023-03-25 20:16] LABS: Glucose,Whole Blood 145 mg/dL (70-110)
--- NOTE | 2023-03-25 21:39 | P.PN ---
Subjective Progress Note Date: 03/25/23 CHIEF COMPLAINT: Ileus HISTORY OF PRESENT ILLNESS: The patient is a 67-year-old male status post anter ior exposure for lumbar fusion, 03/13/2023. Gen. surgery is following for ileus. Family is at bedside including son and . He is tolerating regular diet. He is passing flatus and bowel movements. He still in the intensive care unit. He slowly regained his strength back. He has generalized weakness. ROS: No reports of nausea and vomiting. No chest pain. PHYSICAL EXAM: VITAL SIGNS: Reviewed CONSTITUTIONAL: Well developed. EYES: Conjuctivae without sclera icterus. HEAD, EARS, NOSE, THROAT: Moist buccal mucosa. Head is atraumatic, normocephalic. Hears conversational speech. No nasal drainage. RESPIRATORY: Nonlabored respiration. CARDIOVASCULAR: Palpable 2+ radial pulses. ABDOMEN: No peritonitis. MUSCULOSKELETAL: No gross deformity of the lower extremities noted. No club seth. No cyanosis. SKIN: Good skin turgor. Well perfused. NEUROLOGIC: Cranial nerves II through XII grossly intact. No focal or lateralizing signs. PSYCH: Awake. Alert to person and place. CLINICAL LABS: Reviewed. WBC elevated, 17.0 trending down to 15.0. ASSESSMENT: 1. Ileus, resolving 2. Sepsis acquired 3. Lumbar spondylolisthesis status post fusion 4. Hospital-acquired pneumonia 5. Metabolic encephalopathy PLAN: 1. Diet as tolerated 2. Discontinue Freeman when out of ICU 3. Continue supportive care Objective - Vital Signs Vital signs: Vital Signs Temp 98.0 F 03/25/23 16:00 Pulse 93 03/25/23 17:00 Resp 22 03/25/23 17:00 BP 144/83 03/25/23 17:00 Pulse Ox 96 03/25/23 17:00 FiO2 35 03/23/23 08:00 Intake & Output 03/24/23 03/25/23 03/25/23 18:59 06:59 18:59 Intake Total 5847.676 5550 1778.667 Output Total 860 1350 1105 Balance 998.333 -235 673.667 Weight 100 kg 108.8 kg Intake: IV 298 959 6305 Dextrose 5% in Water 1, 825 900 825 000 ml @ 75 mls/hr IV . [id number] Rx#:[id number] Invasive Line 1 30 30 30 Invasive Line 10 30 30 30 Invasive Line 2 30 30 30 Invasive Line 7 10 Mvi, Adult No.4 with Vit 400 K 10 ml Trace (Conc-1Ml/ Dose) 1 ml Calcium Gluconate 1 gm Potassium Acetate 40 meq Potassium Phosphate 12 mmol In Amino Acid 5%-D15w 1,000 ml @ 40 mls/hr IV .Q24H [facility] Rx#:[id number] Intake, IV Titration 933.333 125 463.667 Amount Diltiazem 125 mg In 125 113.667 Sodium Chloride 0.9% 100 ml @ 10 MG/HR 10 mls/hr IV .[id number] [facility] Rx#: [id number] Fluconazole in NaCl,Iso- 50 Osm 100 mg In Saline 1 50ml.bag @ 50 mls/hr IVPB DAILY [facility] Rx#:[id number] Linezolid 600 mg In 300 Dextrose/Water 1 300ml. bag @ 150 mls/hr IVPB Q12HR [facility] Rx#:[id number] Mvi, Adult No.4 with Vit 933.333 K 10 ml Trace (Conc-1Ml/ Dose) 1 ml Calcium Gluconate 1 gm Potassium Acetate 40 meq Potassium Phosphate 12 mmol In Amino Acid 5%-D15w 1,000 ml @ 40 mls/hr IV .Q24H [facility] Rx#:[id number] Output: Urine 860 1350 1105 Other: Voiding Method Indwelling Catheter Indwelling Catheter Indwelling Catheter # Bowel Movements 1 ABP, PAP, CO, CI - Last Documented Arterial Blood Pressure 200/72 - Labs CBC & Chem 7: 03/25/23 07:40 03/25/23 03:40 Labs: Abnormal Lab Results - Last 24 Hours (Table) 03/24/23 03/24/23 03/24/23 Range/Units 06:00 17:15 18:26 WBC (3.8-10.6) k/uL RBC (4.30-5.90) m/uL Hgb (13.0-17.5) gm/dL Hct (39.0-53.0) % RDW (11.5-15.5) % Neutrophils # (1.3-7.7) k/uL Lymphocytes # (1.0-4.8) k/uL Sodium (137-145) mmol/L Chloride (98-107) mmol/L BUN (9-20) mg/dL Glucose (74-99) mg/dL POC Glucose (mg/dL) 189 H (70-110) mg/dL Calcium (8.4-10.2) mg/dL Vitamin B12 2660.0 H (200.0-944.0) pg/mL Procalcitonin 0.10 H (0.02-0.09) ng/mL 03/24/23 03/24/23 03/25/23 Range/Units 20:23 23:59 03:40 WBC (3.8-10.6) k/uL RBC (4.30-5.90) m/uL Hgb (13.0-17.5) gm/dL Hct (39.0-53.0) % RDW (11.5-15.5) % Neutrophils # (1.3-7.7) k/uL Lymphocytes # (1.0-4.8) k/uL Sodium 148 H (137-145) mmol/L Chloride 121 H (98-107) mmol/L BUN 29 H (9-20) mg/dL Glucose 155 H (74-99) mg/dL POC Glucose (mg/dL) 169 H 145 H (70-110) mg/dL Calcium 7.6 L (8.4-10.2) mg/dL Vitamin B12 (200.0-944.0) pg/mL Procalcitonin (0.02-0.09) ng/mL 03/25/23 03/25/23 03/25/23 Range/Units 03:40 06:42 12:15 WBC 15.0 H (3.8-10.6) k/uL RBC 3.56 L (4.30-5.90) m/uL Hgb 11.1 L (13.0-17.5) gm/dL Hct 34.8 L (39.0-53.0) % RDW 15.9 H (11.5-15.5) % Neutrophils # 13.9 H (1.3-7.7) k/uL Lymphocytes # 0.5 L (1.0-4.8) k/uL Sodium (137-145) mmol/L Chloride (98-107) mmol/L BUN (9-20) mg/dL Glucose (74-99) mg/dL POC Glucose (mg/dL) 176 H 215 H (70-110) mg/dL Calcium (8.4-10.2) mg/dL Vitamin B12 (200.0-944.0) pg/mL Procalcitonin (0.02-0.09) ng/mL 03/25/23 Range/Units 17:06 WBC (3.8-10.6) k/uL RBC (4.30-5.90) m/uL Hgb (13.0-17.5) gm/dL Hct (39.0-53.0) % RDW (11.5-15.5) % Neutrophils # (1.3-7.7) k/uL Lymphocytes # (1.0-4.8) k/uL Sodium (137-145) mmol/L Chloride (98-107) mmol/L BUN (9-20) mg/dL Glucose (74-99) mg/dL POC Glucose (mg/dL) 170 H (70-110) mg/dL Calcium (8.4-10.2) mg/dL Vitamin B12 (200.0-944.0) pg/mL Procalcitonin (0.02-0.09) ng/mL
[2023-03-25] MEDS: ONDANSETRON 4 MG/2 ML VIAL IVP PRN (22:02)
[2023-03-26 00:04] LABS: Glucose,Whole Blood 169 mg/dL (70-110)
[2023-03-26] MEDS: INSULIN ASPART (NovoLOG) 100 UNIT/ML VIAL SQ SCH ×4 (00:21→17:54)
[2023-03-26] MEDS: HYDROmorphone 0.5 MG/0.5 ML SYRINGE IVP PRN ×3 (00:21→16:45)
[2023-03-26] MEDS: NITROGLYCERIN OINT 1 INCH/GM PACKET TOPICAL SCH ×4 (02:05→21:00)
[2023-03-26] MEDS: hydrALAZINE HCL 20 MG/ML 1 ML VIAL IVP PRN (03:20)
[2023-03-26] MEDS: DEXTROSE 5% IN WATER 1,000 ML IV SCH (03:24)
[2023-03-26 04:10] LABS: Basophils # (A) 0.1 k/uL (0-0.2); Basophils % (A) 0 %; Eosinophils # (A) 0.4 k/uL (0-0.7); Eosinophils % (A) 3 %; HCT 32.3 % (39.0-53.0); HGB 10.3 gm/dL (13.0-17.5); Hypochromasia Slight; Lymphocytes # (A) 0.4 k/uL (1.0-4.8); Lymphocytes % (A) 3 %; MCH 30.2 pg (25.0-35.0); MCV 94.5 fL (80.0-100.0); Mean Platelet Volume 8.8; Monocytes # (A) 0.3 k/uL (0-1.0); Monocytes % (A) 2 %; Neutrophils # (A) 11.2 k/uL (1.3-7.7); Neutrophils % (A) 91 %; Platelet Count 214 k/uL (150-450); RBC 3.41 m/uL (4.30-5.90); RDW 15.6 % (11.5-15.5); WBC 12.4 k/uL (3.8-10.6)
[2023-03-26 04:23] LABS: African American GFR (CKD) >90 (>60 ml/min/1.73 sqM); Anion Gap 4 mmol/L; Blood Urea Nitrogen 23 mg/dL (9-20); Calcium 7.3 mg/dL (8.4-10.2); Carbon Dioxide 25 mmol/L (22-30); Chloride 111 mmol/L (98-107); Glucose 125 mg/dL (74-99); Magnesium 2.1 mg/dL (1.6-2.3); Non-African American GFR(CKD) 79 (>60 ml/min/1.73 sqM); Phosphorus 3.5 mg/dL (2.5-4.5); Potassium 3.1 mmol/L (3.5-5.1); Sodium 140 mmol/L (137-145)
[2023-03-26] MEDS: POTASSIUM CHLORIDE ER 20 MEQ TAB.ER PO SCH ×2 (05:14→05:25)
[2023-03-26 05:49] LABS: Glucose,Whole Blood 145 mg/dL (70-110)
--- NOTE | 2023-03-26 07:51 | P.PN ---
Subjective Progress Note Date: 03/26/23 Patient is a 67-year-old male with prior lymphoma s/p stem cell transplant, hypothyroidism, hypertension, and degenerative disc disease who presented for elective lumbar sacral fusion with decompression. Patient underwent 2 to stage procedure with an anterior and posterior approach on . Postoperatively the patient developed ileus, A. fib with RVR, and a non-ST segment elevated myoc ardial infarction. General surgery and cardiology were consulted. Patient had an NG tube placed for possible ileus and was started on Reglan. He began having high-grade fevers and tachycardia on 03/18 and was started on vancomycin, cefepime, and Flagyl. He was seen by infectious disease. CXR on 03/19/23 showed infiltrate b/l lower lobes and right middle lobe. due to worsening respiratory distress the patient was transferred to the ICU on 03/19/23 and subsequently required intubation on 03/20/23. He was tarted on TPN on 03/21/23. He did require a cardizem gtt to control his A fib. He was sucessfully extubated on 03/23/23. He had a sputum culture that was mislabeled as a gastric aspirate which came back with MRSA. He developed significant hypernatremia and required D5W. Patient did develop a rash and therefore vancomycin was discontinued and he was transitioned to Zyvox. Patient seen and examined at bedside. He states he is feeling very tired and fatigued today. He denies any significant chest pain or shortness of breath. He denies nausea or vomiting. per nursing no acute events overnight Vital signs reviewed General: nontoxic, mild distress, appears at stated age Cardiovascular: S1S2 reg, no murmur, positive posterior tibial pulse bilateral, Lungs: Decreased bs b/l bilateral, no rhonchi, no rales , no accessory muscle use Abdominal: soft, nontender to palpation, no guarding, no appreciable organomegaly Ext: no gross muscle atrophy, diffuse anasarca edema b/l lower extremities, no contractures Neuro: CN II-XI grossly intact, no focal neuro deficits Psych: Alert, oriented, appropriate affect, slowed thinking Assessment/Plan: 67 yo Male s/p 2 stage surgery wtih L5-S1 ALIF and L4-S1 PLIF - D/W ortho spine Severe sepsis due to MRSA pneumonia Toxic metabolic encephalopathy complicated by right upper extremity resting t remor -Fluconazole 100 mg IV piggyback daily day #2 -With Zyvoox day #2, completed 8 days of vancomycin -Neurology note reviewed: Await MRI brain to rule out any central insult as a result of resting tremor versus underlying Parkinson's disease -Infectious disease note reviewed from 03/24/23: Sputum culture was mislabeled as gastric aspirate and grew MRSA. -Pulmonary no reviewed: Continue with antibiotics, transitioned to Zyvox due to rash -Pulmonary hygiene Non-ST elevation KS, type II Paroxysmal atrial fibrillation with RVR Cardiomyopathy, ejection fraction 45-50% HTN -Cardiology recommendations appreciated: Start aspirin, hold heparin in light of GI bleeding, continue with IV Cardizem and IV beta rubi. Start the patient on when necessary hydralazine -Catapres patch 0.3 g every 7 days -Aspirin 300 mg daily change to ASA 81 mg oral -Lopressor 25 mg twice daily -Nitro 0.5 inch topical every 6 hours Postoperative ileus -Gen. surgery no reviewed: Continue diet as tolerated -Discontinue TPN Synthroid -Transition from 125 g IV to 250 g oral Resolved: Acute hypoxic respiraoty failure, s/p mechinical ventilation Imaging: Acute abdominal series 03/19/23: Mildly dilated small bowel loops CT abdomen and pelvis 03/19/23: Inflammatory changes in the left lower quadrant extending towards the inguinal region with tiny amount of free air CT brain 03/16/23: No acute intracranial process Echocardiogram: Ejection fraction 45-50% with globally reduced left ventricular systolic function, aortic sclerosis Data Review: Vitals reviewed and T-max the last 24 hours 99.9, last 24 hours systolic blood pressures have been ranging from 120 to 150s, patient has been maintaining adequate saturation on room air, pulse is been ranging from the 90s to 110 Labs reviewed and remarkable for white blood cell count 12.4, hemoglobin 10.3, potassium 3.1 DVT prophylaxis: Start Lovenox Today This dictation was prepared using [employer] voice recognition software. Though every attempt is made to correct errors during dictation some may still exist. Objective - Vital Signs Vital signs: Vital Signs Temp 99.2 F 03/26/23 04:00 Pulse 110 H 03/26/23 07:00 Resp 19 03/26/23 07:00 BP 154/92 03/26/23 07:00 Pulse Ox 97 03/26/23 07:00 FiO2 35 03/23/23 08:00 Intake & Output 03/25/23 03/26/23 03/26/23 18:59 06:59 18:59 Intake Total 1675.179 5448 Output Total 1170 790 Balance 683.667 485 Weight 109.9 kg Intake: IV 1390 1275 Dextrose 5% in Water 1, 900 825 000 ml @ 75 mls/hr IV . [id number] [facility] Rx#:[id number] Dextrose 5% in Water 1, 150 000 ml @ 75 mls/hr IV . [id number] [facility] Rx#:[id number] Invasive Line 1 30 Invasive Line 10 30 Invasive Line 2 30 Linezolid 600 mg In 300 Dextrose/Water 1 300ml. bag @ 150 mls/hr IVPB Q12HR [facility] Rx#:[id number] [facility], Adult No.4 with Vit 400 K 10 ml Trace (Conc-1Ml/ Dose) 1 ml Calcium Gluconate 1 gm Potassium Acetate 40 meq Potassium Phosphate 12 mmol In Amino Acid 5%-D15w 1,000 ml @ 40 mls/hr IV .Q24H [facility] Rx#:[id number] Intake, IV Titration 463.667 Amount Diltiazem 125 mg In 113.667 Sodium Chloride 0.9% 100 ml @ 10 MG/HR 10 mls/hr IV .[id number] [facility] Rx#: [id number] Fluconazole in NaCl,Iso- 50 Osm 100 mg In Saline 1 50ml.bag @ 50 mls/hr IVPB DAILY [facility] Rx#:[id number] Linezolid 600 mg In 300 Dextrose/Water 1 300ml. bag @ 150 mls/hr IVPB Q12HR [facility] Rx#:[id number] Output: Urine 1170 790 Other: Voiding Method Indwelling Catheter Indwelling Catheter # Bowel Movements 1 ABP, PAP, CO, CI - Last Documented Arterial Blood Pressure 200/72 - Labs CBC & Chem 7: 03/26/23 03:40 03/26/23 03:40 Labs: Abnormal Lab Results - Last 24 Hours (Table) 03/25/23 03/25/23 03/25/23 Range/Units 12:15 17:06 20:15 WBC (3.8-10.6) k/uL RBC (4.30-5.90) m/uL Hgb (13.0-17.5) gm/dL Hct (39.0-53.0) % RDW (11.5-15.5) % Neutrophils # (1.3-7.7) k/uL Lymphocytes # (1.0-4.8) k/uL Potassium (3.5-5.1) mmol/L Chloride (98-107) mmol/L BUN (9-20) mg/dL Glucose (74-99) mg/dL POC Glucose (mg/dL) 215 H 170 H 145 H (70-110) mg/dL Calcium (8.4-10.2) mg/dL 03/26/23 03/26/23 03/26/23 Range/Units 00:02 03:40 03:40 WBC 12.4 H (3.8-10.6) k/uL RBC 3.41 L (4.30-5.90) m/uL Hgb 10.3 L (13.0-17.5) gm/dL Hct 32.3 L (39.0-53.0) % RDW 15.6 H (11.5-15.5) % Neutrophils # 11.2 H (1.3-7.7) k/uL Lymphocytes # 0.4 L (1.0-4.8) k/uL Potassium 3.1 L (3.5-5.1) mmol/L Chloride 111 H (98-107) mmol/L BUN 23 H (9-20) mg/dL Glucose 125 H (74-99) mg/dL POC Glucose (mg/dL) 169 H (70-110) mg/dL Calcium 7.3 L (8.4-10.2) mg/dL 03/26/23 Range/Units 05:48 WBC (3.8-10.6) k/uL RBC (4.30-5.90) m/uL Hgb (13.0-17.5) gm/dL Hct (39.0-53.0) % RDW (11.5-15.5) % Neutrophils # (1.3-7.7) k/uL Lymphocytes # (1.0-4.8) k/uL Potassium (3.5-5.1) mmol/L Chloride (98-107) mmol/L BUN (9-20) mg/dL Glucose (74-99) mg/dL POC Glucose (mg/dL) 145 H (70-110) mg/dL Calcium (8.4-10.2) mg/dL
[2023-03-26] MEDS: IPRATROPIUM-ALBUTEROL 3 ML NEB INHALATION SCH ×3 (07:52→20:09)
--- NOTE | 2023-03-26 08:07 | XR ---
EXAMINATION TYPE: XR chest 1V portable DATE OF EXAM: 03/26/2023 COMPARISON: 03/24/2023 HISTORY: Shortness of breath TECHNIQUE: Single frontal view of the chest is obtained. FINDINGS: Mediport catheter appears coiled tip near the SVC. Bilateral consolidation small effusion. Diffuse interstitial pattern is seen in. No pneumothorax. Atrophic changes of the spine. IMPRESSION: Stable left lower lobe infiltrate. Improved aeration right lung base as well as improvin g interstitial suggestive of improving interstitial pneumonitis or venous congestion.
--- NOTE | 2023-03-26 08:14 | P.PN ---
Subjective Progress Note Date: 03/26/23 Principal diagnosis: Atrial flutter The patient is a 67-year-old gentleman who was admitted to the hospital and underwent an L5-S1 fusion complicated by ileus and subsequently we involved in the care of the patient because of paroxysmal atrial fibrillation/atrial flutter and also elevated troponin. The echo revealed mildly impaired LV function with EF around 45% was mild valvular pathology. March 232022 The patient was seen and evaluated this morning. He continues to be intubated on mechanical ventilation. He continues to be nothing by mouth. Hemodynamically he is stable. Currently he is on Cardizem IV as well as heparin IV as well as metoprolol IV. We will continue the current medical regimen until the patient is not nothing by mouth anymore then at that point we will switch the patient into oral medication. I believe coronary angiogram need to be done to rule out severe CAD 1 sedation has better recovery. Currently no indication of any hemodynamic instability. He is maintaining normal sinus mechanism. March 242022 The patient was seen and evaluated this morning. Yesterday he did have an episode of chest pressure. The EKG revealed sinus mechanism with T-wave inversion in the inferolateral leads. He continues to be nothing by mouth. H eparin was systolic yesterday because of gastrointestinal bleeding which is currently under investigation. I am going to give the patient aspirin rectally. He is on beta rubi IV. He is on Cardizem IV. He cannot be on any statin at this point. I believe that the patient need to undergo coronary angiogram once we know that he is able to take his antiplatelet orally in case he needs to undergo an angioplasty. Otherwise I would continue the current medical regimen and continue follow-up with the patient. March 252022 The patient was seen and evaluated. He is in normal sinus mechanism. He continues to be on Cardizem IV. He underwent a swallow evaluation yesterday but he felt that. For that reason we will continue the current medical regimen including the current dose of Cardizem IV. He is maintaining normal sinus mechanism. Anticoagulation on hold because of gastrointestinal bleeding. No chest pain or chest discomfort and no shortness of breath. The hemoglobin this morning is 11.1. March 262022 The patient was seen and evaluated this morning. He has been maintaining normal sinus mechanism was sinus tachycardia. He is not nothing by mouth anymore. With that being saved going to increase the dose of beta rubi. He was started on Lovenox prophylactically. We will find out if he is not at risk of any gastrointestinal bleeding to DC Lovenox and start the patient on oral anticoagulation at least at a small dose. Meanwhile on examination he seems to be a do not this and retaining fluid. I'm going to give the patient 20 mg of Lasix IV only once. Continue the rest of the current medical regimen and follow-up with the patient. The examination is remarkable for regular rhythm with diminished breathing sounds bilaterally and no lower extremities edema noted Assessment Status post L5 to S1 fusion Ileus Paroxysmal atrial fibrillation/flutter Acute non-ST elevation myocardial infarction Mild cardiomyopathy Plan Increase the dose of beta rubi Consider starting the patient on oral anticoagulation Give the patient Lasix IV once Continue monitor the kidney function and electrolytes Follow-up with the patient Objective - Vital Signs Vital signs: Vital Signs Temp 99.2 F 03/26/23 04:00 Pulse 108 H 03/26/23 08:05 Resp 19 03/26/23 07:00 BP 154/92 03/26/23 07:00 Pulse Ox 97 03/26/23 07:54 FiO2 35 03/23/23 08:00 Intake & Output 03/25/23 03/26/23 03/26/23 18:59 06:59 18:59 Intake Total 9688.094 4833 Output Total 1170 790 Balance 683.667 485 Weight 109.9 kg Intake: IV 1390 1275 Dextrose 5% in Water 1, 900 825 000 ml @ 75 mls/hr IV . [id number] [facility] Rx#:[id number] Dextrose 5% in Water 1, 150 000 ml @ 75 mls/hr IV . [id number] [facility] Rx#:[id number] Invasive Line 1 30 Invasive Line 10 30 Invasive Line 2 30 Linezolid 600 mg In 300 Dextrose/Water 1 300ml. bag @ 150 mls/hr IVPB Q12HR [facility] Rx#:[id number] Mvi, Adult No.4 with Vit 400 K 10 ml Trace (Conc-1Ml/ Dose) 1 ml Calcium Gluconate 1 gm Potassium Acetate 40 meq Potassium Phosphate 12 mmol In Amino Acid 5%-D15w 1,000 ml @ 40 mls/hr IV .Q24H [facility] Rx#:[id number] Intake, IV Titration 463.667 Amount Diltiazem 125 mg In 113.667 Sodium Chloride 0.9% 100 ml @ 10 MG/HR 10 mls/hr IV .[id number] [facility] Rx#: [id number] Fluconazole in NaCl,Iso- 50 Osm 100 mg In Saline 1 50ml.bag @ 50 mls/hr IVPB DAILY [facility] Rx#:[id number] Linezolid 600 mg In 300 Dextrose/Water 1 300ml. bag @ 150 mls/hr IVPB Q12HR [facility] Rx#:[id number] Output: Urine 1170 790 Other: Voiding Method Indwelling Catheter Indwelling Catheter # Bowel Movements 1 ABP, PAP, CO, CI - Last Documented Arterial Blood Pressure 200/72 - Labs CBC & Chem 7: 03/26/23 03:40 03/26/23 03:40 Labs: Abnormal Lab Results - Last 24 Hours (Table) 03/25/23 03/25/23 03/25/23 Range/Units 12:15 17:06 20:15 WBC (3.8-10.6) k/uL RBC (4.30-5.90) m/uL Hgb (13.0-17.5) gm/dL Hct (39.0-53.0) % RDW (11.5-15.5) % Neutrophils # (1.3-7.7) k/uL Lymphocytes # (1.0-4.8) k/uL Potassium (3.5-5.1) mmol/L Chloride (98-107) mmol/L BUN (9-20) mg/dL Glucose (74-99) mg/dL POC Glucose (mg/dL) 215 H 170 H 145 H (70-110) mg/dL Calcium (8.4-10.2) mg/dL 03/26/23 03/26/23 03/26/23 Range/Units 00:02 03:40 03:40 WBC 12.4 H (3.8-10.6) k/uL RBC 3.41 L (4.30-5.90) m/uL Hgb 10.3 L (13.0-17.5) gm/dL Hct 32.3 L (39.0-53.0) % RDW 15.6 H (11.5-15.5) % Neutrophils # 11.2 H (1.3-7.7) k/uL Lymphocytes # 0.4 L (1.0-4.8) k/uL Potassium 3.1 L (3.5-5.1) mmol/L Chloride 111 H (98-107) mmol/L BUN 23 H (9-20) mg/dL Glucose 125 H (74-99) mg/dL POC Glucose (mg/dL) 169 H (70-110) mg/dL Calcium 7.3 L (8.4-10.2) mg/dL 03/26/23 Range/Units 05:48 WBC (3.8-10.6) k/uL RBC (4.30-5.90) m/uL Hgb (13.0-17.5) gm/dL Hct (39.0-53.0) % RDW (11.5-15.5) % Neutrophils # (1.3-7.7) k/uL Lymphocytes # (1.0-4.8) k/uL Potassium (3.5-5.1) mmol/L Chloride (98-107) mmol/L BUN (9-20) mg/dL Glucose (74-99) mg/dL POC Glucose (mg/dL) 145 H (70-110) mg/dL Calcium (8.4-10.2) mg/dL
[2023-03-26] MEDS ORDERED: FUROSEMIDE 10 MG/ML 2 ML VIAL IV ONE (08:15)
--- NOTE | 2023-03-26 08:29 | P.PN ---
Subjective Progress Note Date: 03/26/23 Principal diagnosis: L5-S1 grade 2 spondylolisthesis L4 S1 spondylosis lower extremity radiculopathy Patient seen and examined this morning in ICU. Patient is resting comfortably in bed. He reports he had a rough night due to hiccups and coughing. Medication has been ordered to assist with resolving hiccups. Anterior abdominal surgical inci luis is well approximated with glue intact. No drainage. Posterior paralumbar surgical dressing CDI. Patient to continue to work with PT. Encourage use of incentive spirometer. Objective - Vital Signs Vital signs: Vital Signs Temp 99.2 F 03/26/23 04:00 Pulse 108 H 03/26/23 08:05 Resp 19 03/26/23 07:00 BP 154/92 03/26/23 07:00 Pulse Ox 97 03/26/23 07:54 FiO2 35 03/23/23 08:00 Intake & Output 03/25/23 03/26/23 03/26/23 18:59 06:59 18:59 Intake Total 8253.124 1673 Output Total 1170 790 Balance 683.667 485 Weight 109.9 kg Intake: IV 1390 1275 Dextrose 5% in Water 1, 900 825 000 ml @ 75 mls/hr IV . [id number] [facility] Rx#:[id number] Dextrose 5% in Water 1, 150 000 ml @ 75 mls/hr IV . [id number] [facility] Rx#:[id number] Invasive Line 1 30 Invasive Line 10 30 Invasive Line 2 30 Linezolid 600 mg In 300 Dextrose/Water 1 300ml. bag @ 150 mls/hr IVPB Q12HR [facility] Rx#:[id number] Mvi, Adult No.4 with Vit 400 K 10 ml Trace (Conc-1Ml/ Dose) 1 ml Calcium Gluconate 1 gm Potassium Acetate 40 meq Potassium Phosphate 12 mmol In Amino Acid 5%-D15w 1,000 ml @ 40 mls/hr IV .Q24H [facility] Rx#:[id number] Intake, IV Titration 463.667 Amount Diltiazem 125 mg In 113.667 Sodium Chloride 0.9% 100 ml @ 10 MG/HR 10 mls/hr IV .[id number] [facility] Rx#: [id number] Fluconazole in NaCl,Iso- 50 Osm 100 mg In Saline 1 50ml.bag @ 50 mls/hr IVPB DAILY [facility] Rx#:[id number] Linezolid 600 mg In 300 Dextrose/Water 1 300ml. bag @ 150 mls/hr IVPB Q12HR [facility] Rx#:[id number] Output: Urine 1170 790 Other: Voiding Method Indwelling Catheter Indwelling Catheter # Bowel Movements 1 ABP, PAP, CO, CI - Last Documented Arterial Blood Pressure 200/72 - Exam Physical Examination General: The patient is awake and alert, in no acute distress Skin: Diaphoretic. Anterior surgical incision midline lower abdomen is well approximated with glue intact. Posterior paralumbar surgical dressing CDI. Eye: Pupils are to the lower equal, round and reactive to light, extra-ocular movements are intact; there is normal conjunctiva bilaterally. Neck: The neck is supple, there is no tenderness and ROM intact. Cardiovascular: There is a regular rate and rhythm. No murmur, rub or gallop is appreciated. Respiratory: Respirations are non-labored, breath sounds are equal. Gastrointestinal: Nontender, soft Back: There is no tenderness to palpation in the midline, paralumbar, parathoracic or buttocks region. There is no obvious deformity . Musculoskeletal: ROM limited secondary to pain and stiffness from surgical procedure. Muscle strength in all major muscle groups of bilateral upper extremities 4/5, bilateral lower extremities 3-/5. Neurological: CN 2-12 intact. There are no obvious motor or sensory deficits. Movement and coordination equal and intact. Sensory exam to light touch intact C5-T1 and intact from L2-S1. Reflexes 2/4 in bilateral upper and lower extremities. Negative Hoffmans, babinski, and clonus signs. Psychiatric: Cooperative, appropriate mood & affect, normal judgment. - Labs CBC & Chem 7: 03/26/23 03:40 03/26/23 03:40 Labs: Abnormal Lab Results - Last 24 Hours (Table) 03/25/23 03/25/23 03/25/23 Range/Units 12:15 17:06 20:15 WBC (3.8-10.6) k/uL RBC (4.30-5.90) m/uL Hgb (13.0-17.5) gm/dL Hct (39.0-53.0) % RDW (11.5-15.5) % Neutrophils # (1.3-7.7) k/uL Lymphocytes # (1.0-4.8) k/uL Potassium (3.5-5.1) mmol/L Chloride (98-107) mmol/L BUN (9-20) mg/dL Glucose (74-99) mg/dL POC Glucose (mg/dL) 215 H 170 H 145 H (70-110) mg/dL Calcium (8.4-10.2) mg/dL 03/26/23 03/26/23 03/26/23 Range/Units 00:02 03:40 03:40 WBC 12.4 H (3.8-10.6) k/uL RBC 3.41 L (4.30-5.90) m/uL Hgb 10.3 L (13.0-17.5) gm/dL Hct 32.3 L (39.0-53.0) % RDW 15.6 H (11.5-15.5) % Neutrophils # 11.2 H (1.3-7.7) k/uL Lymphocytes # 0.4 L (1.0-4.8) k/uL Potassium 3.1 L (3.5-5.1) mmol/L Chloride 111 H (98-107) mmol/L BUN 23 H (9-20) mg/dL Glucose 125 H (74-99) mg/dL POC Glucose (mg/dL) 169 H (70-110) mg/dL Calcium 7.3 L (8.4-10.2) mg/dL 03/26/23 Range/Units 05:48 WBC (3.8-10.6) k/uL RBC (4.30-5.90) m/uL Hgb (13.0-17.5) gm/dL Hct (39.0-53.0) % RDW (11.5-15.5) % Neutrophils # (1.3-7.7) k/uL Lymphocytes # (1.0-4.8) k/uL Potassium (3.5-5.1) mmol/L Chloride (98-107) mmol/L BUN (9-20) mg/dL Glucose (74-99) mg/dL POC Glucose (mg/dL) 145 H (70-110) mg/dL Calcium (8.4-10.2) mg/dL Assessment and Plan Assessment: Postop day 13: Part I: L5-S1 ALIF with Part II: L4-S1 posteriolateral and interbody fusion. Sepsis presentation, new Hospital-acquired pneumonia Post-Op Illeus resolving Lumbar spondylolithesis Plan: -Appreciate contract consultant and team management. -Activity: Up to chair with all meals. Daily PT/OT -Pain control: Adequate at this time -Meds: reviewed -GI ppx: senna -Maintain dennis and continue to record output every shift -DVT PPX: per medicine -Hygiene: Maintain dressing clean and dry. Meticulous cleaning after BMs away from the incision site -Dispo: Patient is cleared from an Orthopedic standpoint, no further recommendations. *I reviewed and discussed this case with my attending Dr. Villa, whom has reviewed this chart and films and is in agreement with assessment and plan of care as outlined above. I have personally seen and examined the patient, performed the documentation and the assessment and plan as written. Number of minutes spent on the visit: 20m.
[2023-03-26] MEDS ORDERED: ENOXAPARIN 40 MG/0.4 ML SYRINGE SQ SCH (09:00)
[2023-03-26] MEDS ORDERED: ASPIRIN 325 MG TAB PO SCH (09:00)
[2023-03-26] MEDS: ASPIRIN 81 MG PO SCH (09:01)
[2023-03-26] MEDS: cloNIDine 0.3 MG/24HR PATCH TRANSDERM SCH (09:02)
[2023-03-26] MEDS: PANTOPRAZOLE 40 MG/10 ML VIAL IVP SCH (09:02)
[2023-03-26] MEDS: NYSTATIN 100,000 UNIT/ML SUSP 500,000 UNIT/5 ML CUP PO SCH ×4 (09:03→21:04)
[2023-03-26] MEDS: METOPROLOL TARTRATE 50 MG TAB PO SCH ×2 (09:03→21:02)
[2023-03-26] MEDS: FLUCONAZOLE IN NACL,ISO-OSM 100 MG in SALINE 1 50ML.BAG IVPB SCH (09:03)
[2023-03-26] MEDS: LINEZOLID 600 MG in DEXTROSE/WATER 1 300ML.BAG IVPB SCH ×2 (09:42→21:35)
[2023-03-26] MEDS: chlorproMAZINE 25 MG TAB PO SCH ×2 (09:43→15:40)
--- NOTE | 2023-03-26 10:36 | P.PN ---
Subjective Progress Note Date: 03/26/23 Principal diagnosis: Respiratory failure. Acute hypoxic respiratory failure, abdominal sepsis, pneumonia This is a 67-year-old white male, known to have history of lymphoma with stem cell transplant, initially admitted on 03/2023. Patient was admitted with lower extremities numbness and low back pain, underwent anterior retroperitoneal exposure performed by Dr. beckford,, he also underwent anterior lumbar interbody fusion L5-S1 insertion of interbody device, posterior lateral and interbody fusion L4-L5, posterior lateral instrumented fusion L5-S1, laminoforaminotomy for decompression and cage placement L4-L5, use of [employer] navigation for screw placement. His immediate postoperative course was uneventful, on 03/15/2023, patient was seen by cardiology for him than as stated the elevated myocardial infarction and he was seen by many other consultants including general surgery for small bowel obstruction/ileus. Cardiology recommended heparin, and general surgery recommended treatment with the Reglan and simethicone. Over the last 1 week, patient has been gradually getting worse, and he has been developing over the last 2 days worsening shortness of breath. Patient was placed on multiple antibiotics, broad-spectrum antibiotics after he was seen by infectious disease on 03/18/2023, patient was treated for presumptive abdominal sepsis and possible pneumonia. Cultures have been negative/mostly blood cultures and no other cultures were sent. Patient has been receiving cefepime, vancomycin, and Flagyl. Chest x-ray on 03/18/2023 showed minimal basilar atelectasis is no clear- cut evidence of infiltrate however chest x-ray on 03/19/2023 showed infiltrates involving the left lower lobe, left midlung, and the right lower lobe. Clearly the patient developed significant airspace disease while inpatient. While on the medical floor, patient was complaining of abdominal pain and distention, CT abdomen done yesterday showed inflammatory changes in the left lower quadrant extending towards the inguinal region and small tiny amount of free air which was evaluated by general surgery and felt this is most likely related to his recent retroperitoneal approach/surgery. Yesterday I was notified about this patient having worsening shortness of breath, hypoxia, tachycardia, and hypertension. I recommended transferring the patient to the ICU and a few hours after he was in the ICU, he continued to do poorly early this morning the patient had to be intubated and placed on mechanical ventilation. He is now on tidal volume of 500 assist control rate 20 FiO2 50% and PEEP of 5. ABG post intubation showed a pO2 of 231 pCO2 42 pH of 7.38. Hence FiO2 was cut down to 50%. WBC count is 12.8 hemoglobin is 11.1, basic metabolic profile is normal except for potassium of 3.4 BUN is 22 creatinine 1.11. Chest x-ray clearly shows bilateral air space disease consistent with pneumonia or possibly ARDS patient is now on propofol at 45 mcg/kg/m his IV fluid is a 100 mL an hour in the form of 0.9 normal saline, his also on Cardizem drip. Patient was reevaluated today on 03/21/2023, remains in the ICU intubated and mechanically ventilated. He is on assist control rate of 20 tidal volume 500 FiO2 50% and PEEP of 5. His ABG showed a pO2 of 100 pCO2 36 pH of 7.46, FiO2 was cut down to 45%. Patient remains on Cardizem drip at 10 mg per hour and I cut it down to 5 he is on propofol at 45 mcg/kg/m he is also on heparin as per cardiology. Antibiotics moreno patient is receiving vancomycin and Flagyl. TPN to be started today, and again I will cut down his Cardizem to 5 mg per hour. On lower sedation, the patient seems to be comprehending, and he follows simple instructions. Chest x-ray continues to show significant infiltrate in the left lower lobe and right lower lobe, hence I don't believe the patient is quite ready for weaning and extubation at this point in time. WBC count is 12.4 hemoglobin is 10.6, PTT is 88. Electronic for normal renal profile is normal blood sugar is 163 Reevaluated today on 03/22/2023, patient remains in the ICU intubated and mechanically ventilated sedated on propofol at 40 mcg/kg/m remains on Cardizem at 5 mg per hour remains on heparin as per cardiology. He is on assist control rate of 20, tidal volume 500 FiO2 40% PEEP of 5. ABG showed a pO2 of 103 pCO2 36 pH of 7.46, hence I cut down the FiO2 to 35%. Patient is also on TPN at 50 mL per hour. His chest x-ray is showing slight improvement in his infiltrate nonetheless continues to have significant consolidation in the left lower lobe, his right-sided pneumonia seems to be improving. Today the plan is to start addressing her mental status off sedation and decide whether the patient could be considered for weaning in the next 24 hours. Sedation holiday will be given today, and only assessment of mental status to be done today. WBC count remains at the time at 14.4 hemoglobin is 10.6 PTT is 53. Electrolytes are normal except for slightly elevated sodium of 146 and the rest of the labs are unremarkable. Progress note dated 03/23/2023. 67-year-old male who was admitted back on March 13. The patient is currently in the intensive care unit, being admitted there on March 19, and intubated on March 20. He remains on the mechanical ventilator. The patient is on volume assist control, rate 20, tidal volume 500, FiO2 35%, with a PEEP of 5. Blood gases show pO2 of 105, pCO2 34, and pH is 7.4. The patient is currently on saline at 20 mL an hour, a Cardizem drip at 5 mg an hour, peripheral parenteral nutrition at 40 mL an hour, and heparin via weightbase protocol. White count is 13.1, hemoglobin 10.5, hematocrit 33.2, and a platelet count 264,000. Sodium 147, potassium 4.1, chlorides 119, CO2 22, anion gap 6, BUN 41, and creatinine 1.02. Blood cultures have been negative. Gastric aspirate was positive for staph aureus. Chest x-ray shows stable bilateral consolidations and small effusions. Progress note dated 03/24/2023. 67-year-old male was admitted back on March 13. The patient is in the intensive care unit, and has been here since March 19. He was intubated the following day on March 20. Yesterday, his weaning parameters were excellent, and he was successfully extubated. He is currently on 2 L of oxygen by nasal cannula. He is getting Cardizem drip at 10 mg an hour, and TPN at 40 mL an hour. He's currently on D5 half-normal saline at 75 mL an hour, which will be converted D5W at 75 mL an hour. The patient failed his bedside swallow evaluation. White count of 17, hemoglobin 11.1, hematocrit 36.3, and platelet count 259,000. Sodium 151, potassium 4.3, chlorides 119, CO2 22, anion gap 10, BUN 39, and creatinine 0.98. Troponins were 0.443 and 0.445. From 811, the gastric aspirate Gram stain was positive for methicillin-resistant staph aureus. The patient's chest x-ray shows bilateral infiltrates, and small effusion, and is stable. Progress note dated 03/25/2023. 67-year-old male admitted back on March 13, and, has been in the intensive care unit, since March 19. He was intubated for respiratory failure on March 20, and, was successfully extubated on March 23. Currently, the patient is on room air. He's getting Cardizem at 10 mg an hour, and TPN at 40 mL an hour. He is getting D5W at 75 mL an hour, because of hypernatremia and hyperchloremia. Because of a rash, we'll discontinue vancomycin, and start him on Zyvox, 600 mg twice a day. White count 15, hemoglobin 11.1, hematocrit 34.8, and platelet count is 233,000. Sodium 148, potassium 4.2, chlorides 121, CO2 20, BUN 29, creatinine 0.95. Methicillin-resistant staph aureus was noted in the sputum, dated March 20. No follow-up chest x-ray today. Progress note dated 03/26/2023. 67-year-old male who was admitted on March 13, and is been in the intensive care unit since March 19. He was intubated for respiratory failure on March 20, and was extubated on March 23. Currently, he's on room air. He is getting D5W at 75 mL an hour. He is eating. He did pass a swallow evaluation. White count 12.4, he will become 0.3, hematocrit 32.3, and platelet count 214,000. Sodium 140, potassium 3.1, chlorides 111, CO2 25, BUN 23, creatinine 0.98. Sputum had evidence of methicillin-resistant staph aureus. Chest x-ray shows a stable if lower lobe infiltrate. Objective - Vital Signs Vital signs: Vital Signs Temp 99.3 F 03/26/23 08:00 Pulse 120 H 03/26/23 10:00 Resp 16 03/26/23 10:00 BP 135/86 03/26/23 10:00 Pulse Ox 94 L 03/26/23 10:00 FiO2 35 03/23/23 08:00 Intake & Output 03/25/23 03/26/23 03/26/23 18:59 06:59 18:59 Intake Total 6367.557 2080 555 Output Total 1170 790 550 Balance 683.667 485 5 Weight 109.9 kg Intake: IV 1390 1275 555 Dextrose 5% in Water 1, 150 155 000 ml @ 40 mls/hr IV . Q24H [facility] Rx#:[id number] Dextrose 5% in Water 1, 900 825 000 ml @ 75 mls/hr IV . [id number] [facility] Rx#:[id number] Diltiazem 125 mg In 100 Sodium Chloride 0.9% 100 ml @ 10 MG/HR 10 mls/hr IV .[id number] [facility] Rx#: [id number] Invasive Line 1 30 Invasive Line 10 30 Invasive Line 2 30 Linezolid 600 mg In 300 300 Dextrose/Water 1 300ml. bag @ 150 mls/hr IVPB Q12HR [facility] Rx#:[id number] Mvi, Adult No.4 with Vit 400 K 10 ml Trace (Conc-1Ml/ Dose) 1 ml Calcium Gluconate 1 gm Potassium Acetate 40 meq Potassium Phosphate 12 mmol In Amino Acid 5%-D15w 1,000 ml @ 40 mls/hr IV .Q24H [facility] Rx#:[id number] Intake, IV Titration 463.667 Amount Diltiazem 125 mg In 113.667 Sodium Chloride 0.9% 100 ml @ 10 MG/HR 10 mls/hr IV .[id number] [facility] Rx#: [id number] Fluconazole in NaCl,Iso- 50 Osm 100 mg In Saline 1 50ml.bag @ 50 mls/hr IVPB DAILY [facility] Rx#:[id number] Linezolid 600 mg In 300 Dextrose/Water 1 300ml. bag @ 150 mls/hr IVPB Q12HR [facility] Rx#:[id number] Output: Urine 1170 790 550 Other: Voiding Method Indwelling Catheter Indwelling Catheter Indwelling Catheter # Bowel Movements 1 ABP, PAP, CO, CI - Last Documented Arterial Blood Pressure 200/72 - Exam No acute distress, awake, a bit lethargic, on room air HEENT examination is grossly unremarkable. Neck supple. Full range of motion. No adenopathy thyromegaly or neck vein distention. Cardiovascular examination reveals regular rhythm rate. S1-S2 normal. No S3 or S4. No discernible murmur noted. Heart sounds are distant. Heart rate 91 bpm. Lungs reveal scattered bilateral rhonchi. No wheezes or crackles. Breath sounds are equal bilaterally. Saturations are 95 %. Abdomen soft with bowel sounds. No masses or tenderness. Extremities are intact. No cyanosis clubbing or edema. Skin reveals a macular papular erythematous rash. Neurologic examination is brief but nonfocal. - Labs CBC & Chem 7: 03/26/23 03:40 03/26/23 03:40 Labs: Abnormal Lab Results - Last 24 Hours (Table) 03/25/23 03/25/23 03/25/23 Range/Units 12:15 17:06 20:15 WBC (3.8-10.6) k/uL RBC (4.30-5.90) m/uL Hgb (13.0-17.5) gm/dL Hct (39.0-53.0) % RDW (11.5-15.5) % Neutrophils # (1.3-7.7) k/uL Lymphocytes # (1.0-4.8) k/uL Potassium (3.5-5.1) mmol/L Chloride (98-107) mmol/L BUN (9-20) mg/dL Glucose (74-99) mg/dL POC Glucose (mg/dL) 215 H 170 H 145 H (70-110) mg/dL Calcium (8.4-10.2) mg/dL 03/26/23 03/26/23 03/26/23 Range/Units 00:02 03:40 03:40 WBC 12.4 H (3.8-10.6) k/uL RBC 3.41 L (4.30-5.90) m/uL Hgb 10.3 L (13.0-17.5) gm/dL Hct 32.3 L (39.0-53.0) % RDW 15.6 H (11.5-15.5) % Neutrophils # 11.2 H (1.3-7.7) k/uL Lymphocytes # 0.4 L (1.0-4.8) k/uL Potassium 3.1 L (3.5-5.1) mmol/L Chloride 111 H (98-107) mmol/L BUN 23 H (9-20) mg/dL Glucose 125 H (74-99) mg/dL POC Glucose (mg/dL) 169 H (70-110) mg/dL Calcium 7.3 L (8.4-10.2) mg/dL 03/26/23 Range/Units 05:48 WBC (3.8-10.6) k/uL RBC (4.30-5.90) m/uL Hgb (13.0-17.5) gm/dL Hct (39.0-53.0) % RDW (11.5-15.5) % Neutrophils # (1.3-7.7) k/uL Lymphocytes # (1.0-4.8) k/uL Potassium (3.5-5.1) mmol/L Chloride (98-107) mmol/L BUN (9-20) mg/dL Glucose (74-99) mg/dL POC Glucose (mg/dL) 145 H (70-110) mg/dL Calcium (8.4-10.2) mg/dL Assessment and Plan Assessment: Acute hypoxemic respiratory failure, secondary to hospital-acquired pneumonia, S/P intubation and mechanical ventilation, on 03/20/2023, with successful extubation on 03/23/2023. Methicillin-resistant staph aureus pneumonia/tracheobronchitis. Acute abdominal pain, with small bowel obstruction/ileus. Acute sepsis, likely related to underlying pneumonia. Recent elective lumbosacral fusion, and decompression, March 2023, with a complicated postoperative course. Acute metabolic encephalopathy. History of lymphoma, S/P stem cell transplant. Acute non-ST segment elevation myocardial infarction. Paroxysmal atrial fibrillation. Plan: Plan dated 03/23/2023. The patient has been intubated since March 20. Despite being on sedation, the patient is somewhat responsive. The patient will have a spontaneous breathing trial today. We'll place him on pressure support of 5, and CPAP of 5. After about 20 or 30 minutes, the patient will set a weaning parameters, including a rapid shallow breathing index, and cuff leak test. Labs, x-rays, medications are reviewed. The patient remains on Cardizem 5 mg an hour, and heparin. The patient remains on cefepime. The patient also continues on peripheral parenteral nutrition. Additional recommendations and suggestions are forthcoming. Plan dated 03/24/2023. The patient. Watt daily interruption of sedation yesterday, and his spontaneous breathing trial, and was successfully extubated. Labs, x-rays, and medications are all reviewed. The patient continues on 2 L of oxygen. The patient's IV will be changed from D5 with half-normal saline to dextrose, at 75 mL an hour, because of the patient's hypernatremia. He remains on Cardizem at 10 mg an hour. Additional recommendations and suggestions are forthcoming. He did fail his bedside swallow evaluation. Plan dated 03/25/2023. The patient is seen today in room 255. The patient has been weaned down to room air. He continues on Cardizem at 10 mg an hour for his atrial fibrillation. He is getting TPN at 40 mL an hour. He will continue with D5W at 75 mL an hour, for his hypernatremia. Because of his rash, vancomycin was discontinued in favor of Zyvox. Additional recommendations and suggestions are forthcoming. Labs, x-rays, and medications are reviewed. The patient overall prognosis is guarded. Plan dated 03/26/2023. The patient is seen today in room 255. He's currently on room air. The patient's D5W which is running at 75 mL an hour, can be turned down to 40 mL an hour. The patient is eating. The patient did pass a swallow evaluation. Labs, x-rays, and medications are reviewed. The patient can be transferred out to the 3 S. floor, or general medical floor with telemetry. We will continue to follow the patient and make recommendations where appropriate. Prognosis is certainly guarded. Time with Patient: Less than 30
[2023-03-26 11:23] LABS: Glucose,Whole Blood 183 mg/dL (70-110)
--- NOTE | 2023-03-26 13:17 | P.PN ---
Subjective Progress Note Date: 03/26/23 I am following-up with patient and is he sitting in a recliner chair accompanied with his and feels he is drastically doing better. He feels tremors improving. Continues to have generalized edema and is on Lasix. Denies of any new neurological issues. Objective - Vital Signs Vital signs: Vital Signs Temp 99.1 F 03/26/23 12:00 Pulse 109 H 03/26/23 12:00 Resp 14 03/26/23 12:00 BP 135/86 03/26/23 12:00 Pulse Ox 98 03/26/23 12:00 FiO2 35 03/23/23 08:00 Intake & Output 03/25/23 03/26/23 03/26/23 18:59 06:59 18:59 Intake Total 9730.257 2233 555 Output Total 1170 790 550 Balance 683.667 485 5 Weight 109.9 kg Intake: IV 1390 1275 555 Dextrose 5% in Water 1, 150 155 000 ml @ 40 mls/hr IV . Q24H [facility] Rx#:[id number] Dextrose 5% in Water 1, 900 825 000 ml @ 75 mls/hr IV . [id number] [facility] Rx#:[id number] Diltiazem 125 mg In 100 Sodium Chloride 0.9% 100 ml @ 10 MG/HR 10 mls/hr IV .[id number] [facility] Rx#: [id number] Invasive Line 1 30 Invasive Line 10 30 Invasive Line 2 30 Linezolid 600 mg In 300 300 Dextrose/Water 1 300ml. bag @ 150 mls/hr IVPB Q12HR [facility] Rx#:[id number] Mvi, Adult No.4 with Vit 400 K 10 ml Trace (Conc-1Ml/ Dose) 1 ml Calcium Gluconate 1 gm Potassium Acetate 40 meq Potassium Phosphate 12 mmol In Amino Acid 5%-D15w 1,000 ml @ 40 mls/hr IV .Q24H [facility] Rx#:[id number] Intake, IV Titration 463.667 Amount Diltiazem 125 mg In 113.667 Sodium Chloride 0.9% 100 ml @ 10 MG/HR 10 mls/hr IV .[id number] [facility] Rx#: [id number] Fluconazole in NaCl,Iso- 50 Osm 100 mg In Saline 1 50ml.bag @ 50 mls/hr IVPB DAILY [facility] Rx#:[id number] Linezolid 600 mg In 300 Dextrose/Water 1 300ml. bag @ 150 mls/hr IVPB Q12HR [facility] Rx#:[id number] Output: Urine 1170 790 550 Other: Voiding Method Indwelling Catheter Indwelling Catheter Indwelling Catheter # Bowel Movements 1 ABP, PAP, CO, CI - Last Documented Arterial Blood Pressure 200/72 - Exam General: Patient is sitting in a recliner chair and is not in acute distress. Neuro: The patient is awake alert oriented to self, place and time. He is more responsive and interactive today compared to yesterday. He is following simple commands. No aphasia from the limited language. No neglect. Pupils are round equal reactive to light. Visual vernon are full to confrontation. Extraocular movement is intact no nystagmus. No facial weakness. Less of flat affect affect today. No dysarthria. Motor is he's moving all extremities above gravity and no appreciable focality. No resting tremor is noted (better than yesterday). Had tremor on right hand on squeezing right hand. Sensation is normal to touch. Cerebellar: Normal finger to nose but felt end of action tremor. - Labs CBC & Chem 7: 03/26/23 03:40 03/26/23 03:40 Labs: Abnormal Lab Results - Last 24 Hours (Table) 03/25/23 03/25/23 03/26/23 Range/Units 17:06 20:15 00:02 WBC (3.8-10.6) k/uL RBC (4.30-5.90) m/uL Hgb (13.0-17.5) gm/dL Hct (39.0-53.0) % RDW (11.5-15.5) % Neutrophils # (1.3-7.7) k/uL Lymphocytes # (1.0-4.8) k/uL Potassium (3.5-5.1) mmol/L Chloride (98-107) mmol/L BUN (9-20) mg/dL Glucose (74-99) mg/dL POC Glucose (mg/dL) 170 H 145 H 169 H (70-110) mg/dL Calcium (8.4-10.2) mg/dL 03/26/23 03/26/23 03/26/23 Range/Units 03:40 03:40 05:48 WBC 12.4 H (3.8-10.6) k/uL RBC 3.41 L (4.30-5.90) m/uL Hgb 10.3 L (13.0-17.5) gm/dL Hct 32.3 L (39.0-53.0) % RDW 15.6 H (11.5-15.5) % Neutrophils # 11.2 H (1.3-7.7) k/uL Lymphocytes # 0.4 L (1.0-4.8) k/uL Potassium 3.1 L (3.5-5.1) mmol/L Chloride 111 H (98-107) mmol/L BUN 23 H (9-20) mg/dL Glucose 125 H (74-99) mg/dL POC Glucose (mg/dL) 145 H (70-110) mg/dL Calcium 7.3 L (8.4-10.2) mg/dL 03/26/23 Range/Units 11:21 WBC (3.8-10.6) k/uL RBC (4.30-5.90) m/uL Hgb (13.0-17.5) gm/dL Hct (39.0-53.0) % RDW (11.5-15.5) % Neutrophils # (1.3-7.7) k/uL Lymphocytes # (1.0-4.8) k/uL Potassium (3.5-5.1) mmol/L Chloride (98-107) mmol/L BUN (9-20) mg/dL Glucose (74-99) mg/dL POC Glucose (mg/dL) 183 H (70-110) mg/dL Calcium (8.4-10.2) mg/dL Assessment and Plan Assessment: * Altered mental status due to multifactorial: Septic encephalopathy and toxic metabolic encephalopathy--mentation improved * Right upper extremity resting tremor with flat affect and per has worsened during this admission since surgery and prior was subtle--drastically improving (so possible metabolic) * Sepsis likely from abdominal source. * Acute hypoxic respiratory failure secondary to pneumonia, possible ARDS * Acute abdominal pain with small bowel obstruction/ileus being addressed by surgery on the case. * Paroxysmal atrial fibrillation * History of lymphoma and previous stem cell transplant. * Acute non-ST elevated [place] * Status post elective lumbosacral fusion and decompression 03/13/2023. Plan: TSH: 3.68, vitamin B-12: 2660, folate: 16.80 and ammonia level <9.0 Pending MRI of the brain to rule out any central insult which I feel unlikely. Cannot obtain MRI since has rikki. I will cancel MRI and will reassess him tomorrow and if still needed will order it. But patient is doing drastically better for the past two days. Will defer the rest of management to primary team and other specialist. The plan is discussed with patient, his who is at bedside and his nurse. Time with Patient: Less than 30
[2023-03-26] MEDS: IPRATROPIUM-ALBUTEROL 3 ML NEB INHALATION PRN ×2 (16:11→23:41)
--- NOTE | 2023-03-26 16:14 | P.PN ---
Subjective Progress Note Date: 03/26/23 CHIEF COMPLAINT: Ileus HISTORY OF PRESENT ILLNESS: The patient is a 67-year-old male status post anter ior exposure for lumbar fusion, 03/13/2023. Gen. surgery is following for ileus. His bowel movements are extremely small per discussion with nurse. He's downgraded from ICU to MedSurg. No beds available. Otherwise, no bulky bowel movements. ROS: No reports of nausea and vomiting. No chest pain. PHYSICAL EXAM: VITAL SIGNS: Reviewed CONSTITUTIONAL: Well developed. EYES: Conjuctivae without sclera icterus. HEAD, EARS, NOSE, THROAT: Moist buccal mucosa. Head is atraumatic, normocephali c. Hears conversational speech. No nasal drainage. RESPIRATORY: Nonlabored respiration. CARDIOVASCULAR: Palpable 2+ radial pulses. ABDOMEN: No peritonitis. MUSCULOSKELETAL: No gross deformity of the lower extremities noted. No clubbing. No cyanosis. SKIN: Good skin turgor. Well perfused. NEUROLOGIC: Cranial nerves II through XII grossly intact. No focal or lateralizing signs. PSYCH: Awake. Alert to person and place. CLINICAL LABS: Reviewed. WBC elevated, 17.0 trending down to 15.0, today 12.4. ASSESSMENT: 1. Ileus, resolving 2. Sepsis acquired 3. Lumbar spondylolisthesis status post fusion 4. Hospital-acquired pneumonia 5. Metabolic encephalopathy 6. Constipation PLAN: 1. Lactulose 30 mg 1 and milk of magnesia 2400 mg 1 for today. 2. Recommend bowel regimen Objective - Vital Signs Vital signs: Vital Signs Temp 99.1 F 03/26/23 16:00 Pulse 112 H 03/26/23 16:00 Resp 18 03/26/23 16:00 BP 118/76 03/26/23 16:00 Pulse Ox 96 03/26/23 16:00 FiO2 35 03/23/23 08:00 Intake & Output 03/25/23 03/26/23 03/26/23 18:59 06:59 18:59 Intake Total 4538.070 9709 555 Output Total 1170 790 550 Balance 683.667 485 5 Weight 109.9 kg Intake: IV 1390 1275 555 Dextrose 5% in Water 1, 150 155 000 ml @ 40 mls/hr IV . Q24H [facility] Rx#:[id number] Dextrose 5% in Water 1, 900 825 000 ml @ 75 mls/hr IV . [id number] [facility] Rx#:[id number] Diltiazem 125 mg In 100 Sodium Chloride 0.9% 100 ml @ 10 MG/HR 10 mls/hr IV .[id number] [facility] Rx#: [id number] Invasive Line 1 30 Invasive Line 10 30 Invasive Line 2 30 Linezolid 600 mg In 300 300 Dextrose/Water 1 300ml. bag @ 150 mls/hr IVPB Q12HR [facility] Rx#:[id number] Mvi, Adult No.4 with Vit 400 K 10 ml Trace (Conc-1Ml/ Dose) 1 ml Calcium Gluconate 1 gm Potassium Acetate 40 meq Potassium Phosphate 12 mmol In Amino Acid 5%-D15w 1,000 ml @ 40 mls/hr IV .Q24H [facility] Rx#:[id number] Intake, IV Titration 463.667 Amount Diltiazem 125 mg In 113.667 Sodium Chloride 0.9% 100 ml @ 10 MG/HR 10 mls/hr IV .[id number] [facility] Rx#: [id number] Fluconazole in NaCl,Iso- 50 Osm 100 mg In Saline 1 50ml.bag @ 50 mls/hr IVPB DAILY [facility] Rx#:[id number] Linezolid 600 mg In 300 Dextrose/Water 1 300ml. bag @ 150 mls/hr IVPB Q12HR [facility] Rx#:[id number] Output: Urine 1170 790 550 Other: Voiding Method Indwelling Catheter Indwelling Catheter Indwelling Catheter # Bowel Movements 1 ABP, PAP, CO, CI - Last Documented Arterial Blood Pressure 200/72 - Labs CBC & Chem 7: 03/26/23 03:40 03/26/23 03:40 Labs: Abnormal Lab Results - Last 24 Hours (Table) 03/25/23 03/25/23 03/26/23 Range/Units 17:06 20:15 00:02 WBC (3.8-10.6) k/uL RBC (4.30-5.90) m/uL Hgb (13.0-17.5) gm/dL Hct (39.0-53.0) % RDW (11.5-15.5) % Neutrophils # (1.3-7.7) k/uL Lymphocytes # (1.0-4.8) k/uL Potassium (3.5-5.1) mmol/L Chloride (98-107) mmol/L BUN (9-20) mg/dL Glucose (74-99) mg/dL POC Glucose (mg/dL) 170 H 145 H 169 H (70-110) mg/dL Calcium (8.4-10.2) mg/dL 03/26/23 03/26/23 03/26/23 Range/Units 03:40 03:40 05:48 WBC 12.4 H (3.8-10.6) k/uL RBC 3.41 L (4.30-5.90) m/uL Hgb 10.3 L (13.0-17.5) gm/dL Hct 32.3 L (39.0-53.0) % RDW 15.6 H (11.5-15.5) % Neutrophils # 11.2 H (1.3-7.7) k/uL Lymphocytes # 0.4 L (1.0-4.8) k/uL Potassium 3.1 L (3.5-5.1) mmol/L Chloride 111 H (98-107) mmol/L BUN 23 H (9-20) mg/dL Glucose 125 H (74-99) mg/dL POC Glucose (mg/dL) 145 H (70-110) mg/dL Calcium 7.3 L (8.4-10.2) mg/dL 03/26/23 Range/Units 11:21 WBC (3.8-10.6) k/uL RBC (4.30-5.90) m/uL Hgb (13.0-17.5) gm/dL Hct (39.0-53.0) % RDW (11.5-15.5) % Neutrophils # (1.3-7.7) k/uL Lymphocytes # (1.0-4.8) k/uL Potassium (3.5-5.1) mmol/L Chloride (98-107) mmol/L BUN (9-20) mg/dL Glucose (74-99) mg/dL POC Glucose (mg/dL) 183 H (70-110) mg/dL Calcium (8.4-10.2) mg/dL
[2023-03-26] MEDS ORDERED: MAGNESIUM HYDROXIDE 2,400 MG/30 ML CUP PO ONE (16:30)
[2023-03-26] MEDS ORDERED: LACTULOSE 20 GM/30 ML CUP PO ONE (16:30)
--- NOTE | 2023-03-26 17:41 | P.PN ---
Subjective Progress Note Date: 03/25/23 Principal diagnosis: Postop fever Patient is a 67-year-old male electively admitted to the hospital 03/13/2023 in this patient who is s/p anterior lumbar interbody fusion L5-S1 insertion of interbody device with anterior approach patient did develop postop ileus and did have a new fever prompting infection disease consultation. Patient did have a worsening of his respiratory distress requiring transfer to the ICU and the patient was intubated morning of 03/20/2023 on today's evaluation that is 03/25/2023 the patient continues to be afebrile the patient is breathing comfortably on room air the patient has having any chest pain or shortness with occasional cough no abdominal pain no diarrhea. Patient did have a white count down to 15,000 creatinine 0.95 Objective - Vital Signs Vital signs: Vital Signs Temp 98.7 F 03/25/23 12:00 Pulse 101 H 03/25/23 12:00 Resp 10 L 03/25/23 12:00 BP 150/87 03/25/23 12:00 Pulse Ox 97 03/25/23 11:00 FiO2 35 03/23/23 08:00 Intake & Output 03/24/23 03/25/23 03/25/23 18:59 06:59 18:59 Intake Total 4160.713 7245 1060 Output Total 860 1350 600 Balance 998.333 -235 460 Weight 100 kg 108.8 kg Intake: IV 925 990 710 Dextrose 5% in Water 1, 825 900 450 000 ml @ 75 mls/hr IV . [id number] [facility] Rx#:[id number] Invasive Line 1 30 30 20 Invasive Line 10 30 30 20 Invasive Line 2 30 30 20 Invasive Line 7 10 Mvi, Adult No.4 with Vit 200 K 10 ml Trace (Conc-1Ml/ Dose) 1 ml Calcium Gluconate 1 gm Potassium Acetate 40 meq Potassium Phosphate 12 mmol In Amino Acid 5%-D15w 1,000 ml @ 40 mls/hr IV .Q24H [facility] Rx#:[id number] Intake, IV Titration 933.333 125 350 Amount Diltiazem 125 mg In 125 Sodium Chloride 0.9% 100 ml @ 10 MG/HR 10 mls/hr IV .[id number] [facility] Rx#: [id number] Fluconazole in NaCl,Iso- 50 Osm 100 mg In Saline 1 50ml.bag @ 50 mls/hr IVPB DAILY [facility] Rx#:[id number] Linezolid 600 mg In 300 Dextrose/Water 1 300ml. bag @ 150 mls/hr IVPB Q12HR [facility] Rx#:[id number] Mvi, Adult No.4 with Vit 933.333 K 10 ml Trace (Conc-1Ml/ Dose) 1 ml Calcium Gluconate 1 gm Potassium Acetate 40 meq Potassium Phosphate 12 mmol In Amino Acid 5%-D15w 1,000 ml @ 40 mls/hr IV .Q24H [facility] Rx#:[id number] Output: Urine 860 1350 600 Other: Voiding Method Indwelling Catheter Indwelling Catheter Indwelling Catheter # Bowel Movements 1 ABP, PAP, CO, CI - Last Documented Arterial Blood Pressure 200/72 - Exam GENERAL DESCRIPTION: An elderly male lying in bed in no distress RESPIRATORY SYSTEM: Unlabored breathing , decreased breath sounds at bases HEART: S1 S2 regular rate and rhythm , ABDOMEN: Soft , no tenderness EXTREMITIES: No edema feet - Labs CBC & Chem 7: 03/26/23 03:40 03/26/23 03:40 Labs: Abnormal Lab Results - Last 24 Hours (Table) 03/24/23 03/24/23 03/24/23 Range/Units 06:00 17:15 18:26 WBC (3.8-10.6) k/uL RBC (4.30-5.90) m/uL Hgb (13.0-17.5) gm/dL Hct (39.0-53.0) % RDW (11.5-15.5) % Neutrophils # (1.3-7.7) k/uL Lymphocytes # (1.0-4.8) k/uL Sodium (137-145) mmol/L Chloride (98-107) mmol/L BUN (9-20) mg/dL Glucose (74-99) mg/dL POC Glucose (mg/dL) 189 H (70-110) mg/dL Calcium (8.4-10.2) mg/dL Vitamin B12 2660.0 H (200.0-944.0) pg/mL Procalcitonin 0.10 H (0.02-0.09) ng/mL 03/24/23 03/24/23 03/25/23 Range/Units 20:23 23:59 03:40 WBC (3.8-10.6) k/uL RBC (4.30-5.90) m/uL Hgb (13.0-17.5) gm/dL Hct (39.0-53.0) % RDW (11.5-15.5) % Neutrophils # (1.3-7.7) k/uL Lymphocytes # (1.0-4.8) k/uL Sodium 148 H (137-145) mmol/L Chloride 121 H (98-107) mmol/L BUN 29 H (9-20) mg/dL Glucose 155 H (74-99) mg/dL POC Glucose (mg/dL) 169 H 145 H (70-110) mg/dL Calcium 7.6 L (8.4-10.2) mg/dL Vitamin B12 (200.0-944.0) pg/mL Procalcitonin (0.02-0.09) ng/mL 03/25/23 03/25/23 03/25/23 Range/Units 03:40 06:42 12:15 WBC 15.0 H (3.8-10.6) k/uL RBC 3.56 L (4.30-5.90) m/uL Hgb 11.1 L (13.0-17.5) gm/dL Hct 34.8 L (39.0-53.0) % RDW 15.9 H (11.5-15.5) % Neutrophils # 13.9 H (1.3-7.7) k/uL Lymphocytes # 0.5 L (1.0-4.8) k/uL Sodium (137-145) mmol/L Chloride (98-107) mmol/L BUN (9-20) mg/dL Glucose (74-99) mg/dL POC Glucose (mg/dL) 176 H 215 H (70-110) mg/dL Calcium (8.4-10.2) mg/dL Vitamin B12 (200.0-944.0) pg/mL Procalcitonin (0.02-0.09) ng/mL Microbiology - Last 24 Hours (Table) 03/20/23 22:45 Gram Stain - Final Gastric Aspirate Sputum Culture - Final Methicillin resist S. aureus Assessment and Plan (1) Sepsis Current Visit: Yes Status: Acute Code(s): A41.9 - SEPSIS, UNSPECIFIED ORGANISM SNOMED Code(s): 55947501 Plan: 1patient with a postop fever in this patient with extensive surgery requiring anterior lumbar interbody fusion L5-S1 and insertion of interbody device developing a postop ileus now low-grade fever and tachycardia possible abdominal source however no significant tenderness was noticed on abdominal Examination,, patient did have a negative UA chest x-ray did shows mild strandy atelectasis lower lungs patient did have a CT abdominal pelvis Did show some inflammatory changes in the left lower quadrant and tiny air no mention of any abscess or perforation 2-blood culture currently pending CRP is elevated and procalcitonin is normal at 0.09 3the patient sputum cultures came back positive with MRSA which has been mislabeled as gastric aspirate blood culture has been negative. 4vancomycin has been discontinued patient has been started on Zyvox to continue and will monitor clinical course closely Dictation was produced using [employer] dictation software. please excuse any grammatical, word or spelling errors.
--- NOTE | 2023-03-26 17:43 | P.PN ---
Subjective Progress Note Date: 03/26/23 Principal diagnosis: Postop fever Patient is a 67-year-old male electively admitted to the hospital 03/13/2023 in this patient who is s/p anterior lumbar interbody fusion L5-S1 insertion of interbody device with anterior approach patient did develop postop ileus and did have a new fever prompting infection disease consultation. Patient did have a worsening of his respiratory distress requiring transfer to the ICU and the patient was intubated morning of 03/20/2023 on today's evaluation that is 03/26/2023 the patient denies having any fever or any chills, the patient is breathing comfortably on room air patient denies having any chest pain cough or decreased intensity no nausea vomiting no abdominal pain no diarrhea. Patient white count is down to 12,000 creatinine 0.98,chest x-ray repeated this morning stable left lower lobe infiltrate, improve aeration at the right lung base Objective - Vital Signs Vital signs: Vital Signs Temp 99.1 F 03/26/23 12:00 Pulse 109 H 03/26/23 12:00 Resp 14 03/26/23 12:00 BP 135/86 03/26/23 12:00 Pulse Ox 98 03/26/23 12:00 FiO2 35 03/23/23 08:00 Intake & Output 03/25/23 03/26/23 03/26/23 18:59 06:59 18:59 Intake Total 2622.755 5353 555 Output Total 1170 790 550 Balance 683.667 485 5 Weight 109.9 kg Intake: IV 1390 1275 555 Dextrose 5% in Water 1, 150 155 000 ml @ 40 mls/hr IV . Q24H [facility] Rx#:[id number] Dextrose 5% in Water 1, 900 825 000 ml @ 75 mls/hr IV . [id number] [facility] Rx#:[id number] Diltiazem 125 mg In 100 Sodium Chloride 0.9% 100 ml @ 10 MG/HR 10 mls/hr IV .[id number] [facility] Rx#: [id number] Invasive Line 1 30 Invasive Line 10 30 Invasive Line 2 30 Linezolid 600 mg In 300 300 Dextrose/Water 1 300ml. bag @ 150 mls/hr IVPB Q12HR [facility] Rx#:[id number] Mvi, Adult No.4 with Vit 400 K 10 ml Trace (Conc-1Ml/ Dose) 1 ml Calcium Gluconate 1 gm Potassium Acetate 40 meq Potassium Phosphate 12 mmol In Amino Acid 5%-D15w 1,000 ml @ 40 mls/hr IV .Q24H [facility] Rx#:[id number] Intake, IV Titration 463.667 Amount Diltiazem 125 mg In 113.667 Sodium Chloride 0.9% 100 ml @ 10 MG/HR 10 mls/hr IV .[id number] [facility] Rx#: [id number] Fluconazole in NaCl,Iso- 50 Osm 100 mg In Saline 1 50ml.bag @ 50 mls/hr IVPB DAILY [facility] Rx#:[id number] Linezolid 600 mg In 300 Dextrose/Water 1 300ml. bag @ 150 mls/hr IVPB Q12HR [facility] Rx#:[id number] Output: Urine 1170 790 550 Other: Voiding Method Indwelling Catheter Indwelling Catheter Indwelling Catheter # Bowel Movements 1 ABP, PAP, CO, CI - Last Documented Arterial Blood Pressure 200/72 - Exam GENERAL DESCRIPTION: An elderly male lying in bed in no distress RESPIRATORY SYSTEM: Unlabored breathing , decreased breath sounds at bases HEART: S1 S2 regular rate and rhythm , ABDOMEN: Soft , no tenderness EXTREMITIES: No edema feet - Labs CBC & Chem 7: 03/26/23 03:40 03/26/23 03:40 Labs: Abnormal Lab Results - Last 24 Hours (Table) 03/25/23 03/25/23 03/26/23 Range/Units 17:06 20:15 00:02 WBC (3.8-10.6) k/uL RBC (4.30-5.90) m/uL Hgb (13.0-17.5) gm/dL Hct (39.0-53.0) % RDW (11.5-15.5) % Neutrophils # (1.3-7.7) k/uL Lymphocytes # (1.0-4.8) k/uL Potassium (3.5-5.1) mmol/L Chloride (98-107) mmol/L BUN (9-20) mg/dL Glucose (74-99) mg/dL POC Glucose (mg/dL) 170 H 145 H 169 H (70-110) mg/dL Calcium (8.4-10.2) mg/dL 03/26/23 03/26/23 03/26/23 Range/Units 03:40 03:40 05:48 WBC 12.4 H (3.8-10.6) k/uL RBC 3.41 L (4.30-5.90) m/uL Hgb 10.3 L (13.0-17.5) gm/dL Hct 32.3 L (39.0-53.0) % RDW 15.6 H (11.5-15.5) % Neutrophils # 11.2 H (1.3-7.7) k/uL Lymphocytes # 0.4 L (1.0-4.8) k/uL Potassium 3.1 L (3.5-5.1) mmol/L Chloride 111 H (98-107) mmol/L BUN 23 H (9-20) mg/dL Glucose 125 H (74-99) mg/dL POC Glucose (mg/dL) 145 H (70-110) mg/dL Calcium 7.3 L (8.4-10.2) mg/dL 03/26/23 Range/Units 11:21 WBC (3.8-10.6) k/uL RBC (4.30-5.90) m/uL Hgb (13.0-17.5) gm/dL Hct (39.0-53.0) % RDW (11.5-15.5) % Neutrophils # (1.3-7.7) k/uL Lymphocytes # (1.0-4.8) k/uL Potassium (3.5-5.1) mmol/L Chloride (98-107) mmol/L BUN (9-20) mg/dL Glucose (74-99) mg/dL POC Glucose (mg/dL) 183 H (70-110) mg/dL Calcium (8.4-10.2) mg/dL Assessment and Plan (1) Sepsis Current Visit: Yes Status: Acute Code(s): A41.9 - SEPSIS, UNSPECIFIED ORGANISM SNOMED Code(s): 37661147 Plan: 1patient with a postop fever in this patient with extensive surgery requiring anterior lumbar interbody fusion L5-S1 and insertion of interbody device developing a postop ileus now low-grade fever and tachycardia possible abdominal source however no significant tenderness was noticed on abdominal Examination,, patient did have a negative UA chest x-ray did shows mild strandy atelectasis lower lungs patient did have a CT abdominal pelvis Did show some inflammatory changes in the left lower quadrant and tiny air no mention of any abscess or perforation 2-blood culture currently pending CRP is elevated and procalcitonin is normal at 0.09 3the patient sputum cultures came back positive with MRSA which has been mislabeled as gastric aspirate blood culture has been negative. 4Patient seem to have shown clinical improvement we will continue patient on Zyvox to finish a 10-day course of therapy and monitor clinical course closely Dictation was produced using [employer] software. please excuse any grammatical, word or spelling errors. Time with Patient: Less than 30
[2023-03-26 17:55] LABS: Glucose,Whole Blood 164 mg/dL (70-110)
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
[2023-03-26] MEDS ORDERED: POTASSIUM CHLORIDE ER 20 MEQ TAB.ER PO SCH (20:00)
[2023-03-26] MEDS: MELATONIN 5 MG TABLET PO SCH (21:02)
[2023-03-26 23:45] LABS: Glucose,Whole Blood 162 mg/dL (70-110)
[2023-03-27] MEDS: INSULIN ASPART (NovoLOG) 100 UNIT/ML VIAL SQ SCH ×2 (00:55→05:41)
[2023-03-27] MEDS: DEXTROSE 5% IN WATER 1,000 ML IV SCH (00:57)
[2023-03-27] MEDS: NITROGLYCERIN OINT 1 INCH/GM PACKET TOPICAL SCH ×2 (01:00→08:20)
[2023-03-27 04:45] LABS: African American GFR (CKD) 84 (>60 ml/min/1.73 sqM); Anion Gap 6 mmol/L; Blood Urea Nitrogen 22 mg/dL (9-20); Carbon Dioxide 21 mmol/L (22-30); Chloride 108 mmol/L (98-107); Glucose 151 mg/dL (74-99); Non-African American GFR(CKD) 73 (>60 ml/min/1.73 sqM); Phosphorus 3.1 mg/dL (2.5-4.5); Potassium 3.2 mmol/L (3.5-5.1); Sodium 135 mmol/L (137-145)
[2023-03-27 05:38] LABS: Glucose,Whole Blood 148 mg/dL (70-110)
[2023-03-27] MEDS: LEVOTHYROXINE 125 MCG TAB PO SCH (06:29)
[2023-03-27] MEDS: POTASSIUM CHLORIDE ER 20 MEQ TAB.ER PO SCH (06:29)
[2023-03-27 07:20] LABS: HCT 28.2 % (39.0-53.0); HGB 9.2 gm/dL (13.0-17.5); Hypochromasia Slight; MCH 30.8 pg (25.0-35.0); MCHC 32.5 g/dL (31.0-37.0); MCV 94.9 fL (80.0-100.0); Mean Platelet Volume 10.3; Platelet Count 222 k/uL (150-450); RBC 2.97 m/uL (4.30-5.90); RDW 15.9 % (11.5-15.5); WBC 9.1 k/uL (3.8-10.6)
[2023-03-27] MEDS: IPRATROPIUM-ALBUTEROL 3 ML NEB INHALATION SCH (07:37)
--- NOTE | 2023-03-27 08:08 | P.PN ---
Subjective Progress Note Date: 03/27/23 Principal diagnosis: Atrial flutter The patient is a 67-year-old gentleman who was admitted to the hospital and underwent an L5-S1 fusion complicated by ileus and subsequently we involved in the care of the patient because of paroxysmal atrial fibrillation/atrial flutter and also elevated troponin. The echo revealed mildly impaired LV function with EF around 45% was mild valvular pathology. March 232022 The patient was seen and evaluated this morning. He continues to be intubated on mechanical ventilation. He continues to be nothing by mouth. Hemodynamically he is stable. Currently he is on Cardizem IV as well as heparin IV as well as metoprolol IV. We will continue the current medical regimen until the patient is not nothing by mouth anymore then at that point we will switch the patient into oral medication. I believe coronary angiogram need to be done to rule out severe CAD 1 sedation has better recovery. Currently no indication of any hemodynamic instability. He is maintaining normal sinus mechanism. March 242022 The patient was seen and evaluated this morning. Yesterday he did have an episode of chest pressure. The EKG revealed sinus mechanism with T-wave inversion in the inferolateral leads. He continues to be nothing by mouth. H eparin was systolic yesterday because of gastrointestinal bleeding which is currently under investigation. I am going to give the patient aspirin rectally. He is on beta rubi IV. He is on Cardizem IV. He cannot be on any statin at this point. I believe that the patient need to undergo coronary angiogram once we know that he is able to take his antiplatelet orally in case he needs to undergo an angioplasty. Otherwise I would continue the current medical regimen and continue follow-up with the patient. March 252022 The patient was seen and evaluated. He is in normal sinus mechanism. He continues to be on Cardizem IV. He underwent a swallow evaluation yesterday but he felt that. For that reason we will continue the current medical regimen including the current dose of Cardizem IV. He is maintaining normal sinus mechanism. Anticoagulation on hold because of gastrointestinal bleeding. No chest pain or chest discomfort and no shortness of breath. The hemoglobin this morning is 11.1. March 262022 The patient was seen and evaluated this morning. He has been maintaining normal sinus mechanism was sinus tachycardia. He is not nothing by mouth anymore. With that being saved going to increase the dose of beta rubi. He was started on Lovenox prophylactically. We will find out if he is not at risk of any gastrointestinal bleeding to DC Lovenox and start the patient on oral anticoagulation at least at a small dose. Meanwhile on examination he seems to be a do not this and retaining fluid. I'm going to give the patient 20 mg of Lasix IV only once. Continue the rest of the current medical regimen and follow-up with the patient. March 272022 The patient was seen and evaluated this morning. He has been maintaining normal sinus rhythm and his tachycardia has a slightly improved but his resting heart rate continues to be above 100 bpm. I'm going to increase the dose of beta rubi with metoprolol. Beside that we are going to DC Lovenox and start the patient on oral anticoagulation after we had the green light from the surgical team. He reports no pain in the chest. On examination he remains a do not is mostly in the upper extremities. I'm going to give an additional dose of Lasix today and continue monitor the kidney function and electrolytes and replace his potassium. The examination is remarkable for regular rhythm with diminished breathing sounds bilaterally and no lower extremities edema noted but upper extremities edema Assessment Status post L5 to S1 fusion Ileus Paroxysmal atrial fibrillation/flutter Acute non-ST elevation myocardial infarction Mild cardiomyopathy Plan Increase the dose of beta rubi DC Lovenox and start the patient on oral anticoagulation Give the patient additional dose of Lasix IV Follow-up with the patient Objective - Vital Signs Vital signs: Vital Signs Temp 98.9 F 03/27/23 04:00 Pulse 104 H 03/27/23 07:46 Resp 21 03/27/23 04:00 BP 118/64 03/27/23 04:00 Pulse Ox 97 03/27/23 07:39 FiO2 35 03/23/23 08:00 Intake & Output 03/26/23 03/27/23 03/27/23 18:59 06:59 18:59 Intake Total 555 Output Total 550 800 Balance 5 -800 Intake: IV 555 Dextrose 5% in Water 1, 155 000 ml @ 40 mls/hr IV . Q24H [facility] Rx#:[id number] Diltiazem 125 mg In 100 Sodium Chloride 0.9% 100 ml @ 10 MG/HR 10 mls/hr IV .[id number] [facility] Rx#: [id number] Linezolid 600 mg In 300 Dextrose/Water 1 300ml. bag @ 150 mls/hr IVPB Q12HR [facility] Rx#:[id number] Output: Urine 550 800 Uretheral (Freeman) 800 Other: Voiding Method Indwelling Catheter Indwelling Catheter # Bowel Movements 2 ABP, PAP, CO, CI - Last Documented Arterial Blood Pressure 200/72 - Labs CBC & Chem 7: 03/27/23 05:46 03/27/23 03:54 Labs: Abnormal Lab Results - Last 24 Hours (Table) 03/26/23 03/26/23 03/26/23 Range/Units 11:21 17:53 23:44 RBC (4.30-5.90) m/uL Hgb (13.0-17.5) gm/dL Hct (39.0-53.0) % RDW (11.5-15.5) % Sodium (137-145) mmol/L Potassium (3.5-5.1) mmol/L Chloride (98-107) mmol/L Carbon Dioxide (22-30) mmol/L BUN (9-20) mg/dL Glucose (74-99) mg/dL POC Glucose (mg/dL) 183 H 164 H 162 H (70-110) mg/dL Calcium (8.4-10.2) mg/dL 03/27/23 03/27/23 03/27/23 Range/Units 03:54 05:37 05:46 RBC 2.97 L (4.30-5.90) m/uL Hgb 9.2 L (13.0-17.5) gm/dL Hct 28.2 L (39.0-53.0) % RDW 15.9 H (11.5-15.5) % Sodium 135 L (137-145) mmol/L Potassium 3.2 L (3.5-5.1) mmol/L Chloride 108 H (98-107) mmol/L Carbon Dioxide 21 L (22-30) mmol/L BUN 22 H (9-20) mg/dL Glucose 151 H (74-99) mg/dL POC Glucose (mg/dL) 148 H (70-110) mg/dL Calcium 7.0 L (8.4-10.2) mg/dL
[2023-03-27] MEDS ORDERED: FUROSEMIDE 10 MG/ML 2 ML VIAL IV ONE (08:12)
--- NOTE | 2023-03-27 08:30 | P.PN ---
Subjective Progress Note Date: 03/27/23 Principal diagnosis: L5-S1 grade 2 spondylolisthesis L4 S1 spondylosis lower extremity radiculopathy Patient seen and examined this morning in ICU. Patient is resting comfortably in bed. Patient has had relief of his constant hiccups. Anterior abdominal surgical incision is well approximated with glue intact. No drainage. Posterior paralumb ar surgical dressing has been removed. Incisions are well approximated with rikki intact, no drainage. Freeman cath remains patent. He is having loose stools. Patient to continue to work with PT. Encourage use of incentive spirometer. Patient is cleared from Orthopedic standpoint for discharge when medically stable. Objective - Vital Signs Vital signs: Vital Signs Temp 98.9 F 03/27/23 04:00 Pulse 104 H 03/27/23 07:46 Resp 21 03/27/23 04:00 BP 118/64 03/27/23 04:00 Pulse Ox 97 03/27/23 07:39 FiO2 35 03/23/23 08:00 Intake & Output 03/26/23 03/27/23 03/27/23 18:59 06:59 18:59 Intake Total 555 Output Total 550 800 Balance 5 -800 Intake: IV 555 Dextrose 5% in Water 1, 155 000 ml @ 40 mls/hr IV . Q24H [facility] Rx#:[id number] Diltiazem 125 mg In 100 Sodium Chloride 0.9% 100 ml @ 10 MG/HR 10 mls/hr IV .[id number] [facility] Rx#: [id number] Linezolid 600 mg In 300 Dextrose/Water 1 300ml. bag @ 150 mls/hr IVPB Q12HR [facility] Rx#:[id number] Output: Urine 550 800 Uretheral (Freeman) 800 Other: Voiding Method Indwelling Catheter Indwelling Catheter # Bowel Movements 2 ABP, PAP, CO, CI - Last Documented Arterial Blood Pressure 200/72 - Exam Physical Examination General: The patient is awake and alert, in no acute distress Skin: Diaphoretic. Anterior surgical incision midline lower abdomen is well ap proximated with glue intact. Posterior paralumbar surgical incisions are well approximated with rikki intact. Eye: Pupils are to the lower equal, round and reactive to light, extra-ocular movements are intact; there is normal conjunctiva bilaterally. Neck: The neck is supple, there is no tenderness and ROM intact. Cardiovascular: There is a regular rate and rhythm. No murmur, rub or gallop is appreciated. Respiratory: Respirations are non-labored, breath sounds are equal. Gastrointestinal: Nontender, soft Back: There is no tenderness to palpation in the midline, paralumbar, pa rathoracic or buttocks region. There is no obvious deformity . Musculoskeletal: ROM limited secondary to pain and stiffness from surgical procedure. Muscle strength in all major muscle groups of bilateral upper extremities 4/5, bilateral lower extremities 3-/5. Neurological: CN 2-12 intact. There are no obvious motor or sensory deficits. Movement and coordination equal and intact. Sensory exam to light touch intact C5-T1 and intact from L2-S1. Reflexes 2/4 in bilateral upper and lower extremit ies. Negative Hoffmans, babinski, and clonus signs. Psychiatric: Cooperative, appropriate mood & affect, normal judgment. - Labs CBC & Chem 7: 03/27/23 05:46 03/27/23 03:54 Labs: Abnormal Lab Results - Last 24 Hours (Table) 03/26/23 03/26/23 03/26/23 Range/Units 11:21 17:53 23:44 RBC (4.30-5.90) m/uL Hgb (13.0-17.5) gm/dL Hct (39.0-53.0) % RDW (11.5-15.5) % Sodium (137-145) mmol/L Potassium (3.5-5.1) mmol/L Chloride (98-107) mmol/L Carbon Dioxide (22-30) mmol/L BUN (9-20) mg/dL Glucose (74-99) mg/dL POC Glucose (mg/dL) 183 H 164 H 162 H (70-110) mg/dL Calcium (8.4-10.2) mg/dL 03/27/23 03/27/23 03/27/23 Range/Units 03:54 05:37 05:46 RBC 2.97 L (4.30-5.90) m/uL Hgb 9.2 L (13.0-17.5) gm/dL Hct 28.2 L (39.0-53.0) % RDW 15.9 H (11.5-15.5) % Sodium 135 L (137-145) mmol/L Potassium 3.2 L (3.5-5.1) mmol/L Chloride 108 H (98-107) mmol/L Carbon Dioxide 21 L (22-30) mmol/L BUN 22 H (9-20) mg/dL Glucose 151 H (74-99) mg/dL POC Glucose (mg/dL) 148 H (70-110) mg/dL Calcium 7.0 L (8.4-10.2) mg/dL Assessment and Plan Assessment: Postop day 14: Part I: L5-S1 ALIF with Part II: L4-S1 posteriolateral and interbody fusion. Sepsis presentation, new Hospital-acquired pneumonia Post-Op Illeus resolving Lumbar spondylolithesis Plan: -Appreciate cruise consultant and team management. -Activity: Up to chair with all meals. Daily PT/OT -Pain control: Adequate at this time -Meds: reviewed -GI ppx: senna -Freeman cath to be discontinued when up and about. -DVT PPX: per medicine -Hygiene: Maintain dressing clean and dry. Meticulous cleaning after BMs away from the incision site -Dispo: Patient is cleared from an Orthopedic standpoint, no further recommendations. *I reviewed and discussed this case with my attending Dr. Villa, whom has reviewed this chart and films and is in agreement with assessment and plan of care as outlined above. I have personally seen and examined the patient, performed the documentation and the assessment and plan as written. Number of minutes spent on the visit: 20m.
[2023-03-27 08:38] VITALS: BMI 33.7
[2023-03-27] MEDS: PANTOPRAZOLE 40 MG/10 ML VIAL IVP SCH (09:23)
[2023-03-27] MEDS: APIXABAN 2.5 MG TABLET PO SCH ×2 (09:23→22:09)
[2023-03-27] MEDS: NYSTATIN 100,000 UNIT/ML SUSP 500,000 UNIT/5 ML CUP PO SCH ×4 (09:23→23:07)
[2023-03-27] MEDS: METOPROLOL TARTRATE 50 MG TAB PO SCH ×3 (09:23→22:10)
[2023-03-27] MEDS: ASPIRIN 81 MG PO SCH (09:23)
--- NOTE | 2023-03-27 09:53 | P.PN ---
Subjective Progress Note Date: 03/27/23 Principal diagnosis: Respiratory failure. Acute hypoxic respiratory failure, abdominal sepsis, pneumonia This is a 67-year-old white male, known to have history of lymphoma with stem cell transplant, initially admitted on 03/2023. Patient was admitted with lower extremities numbness and low back pain, underwent anterior retroperitoneal exposure performed by Dr. beckford,, he also underwent anterior lumbar interbody fusion L5-S1 insertion of interbody device, posterior lateral and interbody fusion L4-L5, posterior lateral instrumented fusion L5-S1, laminoforaminotomy for decompression and cage placement L4-L5, use of [employer] navigation for screw placement. His immediate postoperative course was uneventful, on 03/15/2023, patient was seen by cardiology for him than as stated the elevated myocardial infarction and he was seen by many other consultants including general surgery for small bowel obstruction/ileus. Cardiology recommended heparin, and general surgery recommended treatment with the Reglan and simethicone. Over the last 1 week, patient has been gradually getting worse, and he has been developing over the last 2 days worsening shortness of breath. Patient was placed on multiple antibiotics, broad-spectrum antibiotics after he was seen by infectious disease on 03/18/2023, patient was treated for presumptive abdominal sepsis and possible pneumonia. Cultures have been negative/mostly blood cultures and no other cultures were sent. Patient has been receiving cefepime, vancomycin, and Flagyl. Chest x-ray on 03/18/2023 showed minimal basilar atelectasis is no clear- cut evidence of infiltrate however chest x-ray on 03/19/2023 showed infiltrates involving the left lower lobe, left midlung, and the right lower lobe. Clearly the patient developed significant airspace disease while inpatient. While on the medical floor, patient was complaining of abdominal pain and distention, CT abdomen done yesterday showed inflammatory changes in the left lower quadrant extending towards the inguinal region and small tiny amount of free air which was evaluated by general surgery and felt this is most likely related to his recent retroperitoneal approach/surgery. Yesterday I was notified about this patient having worsening shortness of breath, hypoxia, tachycardia, and hypertension. I recommended transferring the patient to the ICU and a few hours after he was in the ICU, he continued to do poorly early this morning the patient had to be intubated and placed on mechanical ventilation. He is now on tidal volume of 500 assist control rate 20 FiO2 50% and PEEP of 5. ABG post intubation showed a pO2 of 231 pCO2 42 pH of 7.38. Hence FiO2 was cut down to 50%. WBC count is 12.8 hemoglobin is 11.1, basic metabolic profile is normal except for potassium of 3.4 BUN is 22 creatinine 1.11. Chest x-ray clearly shows bilateral air space disease consistent with pneumonia or possibly ARDS patient is now on propofol at 45 mcg/kg/m his IV fluid is a 100 mL an hour in the form of 0.9 normal saline, his also on Cardizem drip. Patient was reevaluated today on 03/21/2023, remains in the ICU intubated and mechanically ventilated. He is on assist control rate of 20 tidal volume 500 FiO2 50% and PEEP of 5. His ABG showed a pO2 of 100 pCO2 36 pH of 7.46, FiO2 was cut down to 45%. Patient remains on Cardizem drip at 10 mg per hour and I cut it down to 5 he is on propofol at 45 mcg/kg/m he is also on heparin as per cardiology. Antibiotics moreno patient is receiving vancomycin and Flagyl. TPN to be started today, and again I will cut down his Cardizem to 5 mg per hour. On lower sedation, the patient seems to be comprehending, and he follows simple instructions. Chest x-ray continues to show significant infiltrate in the left lower lobe and right lower lobe, hence I don't believe the patient is quite ready for weaning and extubation at this point in time. WBC count is 12.4 hemoglobin is 10.6, PTT is 88. Electronic for normal renal profile is normal blood sugar is 163 Reevaluated today on 03/22/2023, patient remains in the ICU intubated and mechanically ventilated sedated on propofol at 40 mcg/kg/m remains on Cardizem at 5 mg per hour remains on heparin as per cardiology. He is on assist control rate of 20, tidal volume 500 FiO2 40% PEEP of 5. ABG showed a pO2 of 103 pCO2 36 pH of 7.46, hence I cut down the FiO2 to 35%. Patient is also on TPN at 50 mL per hour. His chest x-ray is showing slight improvement in his infiltrate nonetheless continues to have significant consolidation in the left lower lobe, his right-sided pneumonia seems to be improving. Today the plan is to start addressing her mental status off sedation and decide whether the patient could be considered for weaning in the next 24 hours. Sedation holiday will be given today, and only assessment of mental status to be done today. WBC count remains at the time at 14.4 hemoglobin is 10.6 PTT is 53. Electrolytes are normal except for slightly elevated sodium of 146 and the rest of the labs are unremarkable. Progress note dated 03/23/2023. 67-year-old male who was admitted back on March 13. The patient is currently in the intensive care unit, being admitted there on March 19, and intubated on March 20. He remains on the mechanical ventilator. The patient is on volume assist control, rate 20, tidal volume 500, FiO2 35%, with a PEEP of 5. Blood gases show pO2 of 105, pCO2 34, and pH is 7.4. The patient is currently on saline at 20 mL an hour, a Cardizem drip at 5 mg an hour, peripheral parenteral nutrition at 40 mL an hour, and heparin via weightbase protocol. White count is 13.1, hemoglobin 10.5, hematocrit 33.2, and a platelet count 264,000. Sodium 147, potassium 4.1, chlorides 119, CO2 22, anion gap 6, BUN 41, and creatinine 1.02. Blood cultures have been negative. Gastric aspirate was positive for staph aureus. Chest x-ray shows stable bilateral consolidations and small effusions. Progress note dated 03/24/2023. 67-year-old male was admitted back on March 13. The patient is in the intensive care unit, and has been here since March 19. He was intubated the following day on March 20. Yesterday, his weaning parameters were excellent, and he was successfully extubated. He is currently on 2 L of oxygen by nasal cannula. He is getting Cardizem drip at 10 mg an hour, and TPN at 40 mL an hour. He's currently on D5 half-normal saline at 75 mL an hour, which will be converted D5W at 75 mL an hour. The patient failed his bedside swallow evaluation. White count of 17, hemoglobin 11.1, hematocrit 36.3, and platelet count 259,000. Sodium 151, potassium 4.3, chlorides 119, CO2 22, anion gap 10, BUN 39, and creatinine 0.98. Troponins were 0.443 and 0.445. From 811, the gastric aspirate Gram stain was positive for methicillin-resistant staph aureus. The patient's chest x-ray shows bilateral infiltrates, and small effusion, and is stable. Progress note dated 03/25/2023. 67-year-old male admitted back on March 13, and, has been in the intensive care unit, since March 19. He was intubated for respiratory failure on March 20, and, was successfully extubated on March 23. Currently, the patient is on room air. He's getting Cardizem at 10 mg an hour, and TPN at 40 mL an hour. He is getting D5W at 75 mL an hour, because of hypernatremia and hyperchloremia. Because of a rash, we'll discontinue vancomycin, and start him on Zyvox, 600 mg twice a day. White count 15, hemoglobin 11.1, hematocrit 34.8, and platelet count is 233,000. Sodium 148, potassium 4.2, chlorides 121, CO2 20, BUN 29, creatinine 0.95. Methicillin-resistant staph aureus was noted in the sputum, dated March 20. No follow-up chest x-ray today. Progress note dated 03/26/2023. 67-year-old male who was admitted on March 13, and is been in the intensive care unit since March 19. He was intubated for respiratory failure on March 20, and was extubated on March 23. Currently, he's on room air. He is getting D5W at 75 mL an hour. He is eating. He did pass a swallow evaluation. White count 12.4, he will become 0.3, hematocrit 32.3, and platelet count 214,000. Sodium 140, potassium 3.1, chlorides 111, CO2 25, BUN 23, creatinine 0.98. Sputum had evidence of methicillin-resistant staph aureus. Chest x-ray shows a stable if lower lobe infiltrate. Progress note dated 03/27/2023. The patient is again seen in room 255. He's currently on room air. He is getting saline at KVO. The patient's Zyvox will be discontinued. The patient will continue on nystatin swish and swallow for oropharyngeal candidiasis. We'll DC updrafts. The patient could be considered for transfer to the general medical floor. Currently labs include a white count 9.1, hemoglobin 9.2, hematocrit 28.2, and a normal platelet count. Sodium 135, potassium 3.2, chlorides 108, CO2 21, BUN 22, and creatinine 1.05. Sputum reese stain from March 20 was positive for methicillin-resistant staph aureus. Treated adequately with vancomycin and Zyvox. No chest x-ray today. Objective - Vital Signs Vital signs: Vital Signs Temp 98.9 F 03/27/23 04:00 Pulse 104 H 03/27/23 07:46 Resp 21 03/27/23 04:00 BP 118/64 03/27/23 04:00 Pulse Ox 97 03/27/23 07:39 FiO2 35 03/23/23 08:00 Intake & Output 03/26/23 03/27/23 03/27/23 18:59 06:59 18:59 Intake Total 555 Output Total 550 800 Balance 5 -800 Weight 109.9 kg Intake: IV 555 Dextrose 5% in Water 1, 155 000 ml @ 40 mls/hr IV . Q24H [facility] Rx#:[id number] Diltiazem 125 mg In 100 Sodium Chloride 0.9% 100 ml @ 10 MG/HR 10 mls/hr IV .[id number] [facility] Rx#: [id number] Linezolid 600 mg In 300 Dextrose/Water 1 300ml. bag @ 150 mls/hr IVPB Q12HR [facility] Rx#:[id number] Output: Urine 550 800 Uretheral (Freeman) 800 Other: Voiding Method Indwelling Catheter Indwelling Catheter # Bowel Movements 2 ABP, PAP, CO, CI - Last Documented Arterial Blood Pressure 200/72 - Exam No acute distress, awake, alert, on room air. Room air saturations are 97%. HEENT examination is grossly unremarkable. Neck supple. Full range of motion. No adenopathy thyromegaly or neck vein distention. Cardiovascular examination reveals regular rhythm rate. S1-S2 normal. No S3 or S4. No discernible murmur noted. Heart sounds are distant. Heart rate 94 bpm. Lungs reveal scattered bilateral rhonchi. No wheezes or crackles. Breath sounds are equal bilaterally. Saturations are 97 %. Abdomen soft with bowel sounds. No masses or tenderness. Extremities are intact. No cyanosis clubbing or edema. Skin reveals a macular papular erythematous rash, which is improved. Neurologic examination is brief but nonfocal. - Labs CBC & Chem 7: 03/27/23 05:46 03/27/23 03:54 Labs: Abnormal Lab Results - Last 24 Hours (Table) 03/26/23 03/26/23 03/26/23 Range/Units 11:21 17:53 23:44 RBC (4.30-5.90) m/uL Hgb (13.0-17.5) gm/dL Hct (39.0-53.0) % RDW (11.5-15.5) % Sodium (137-145) mmol/L Potassium (3.5-5.1) mmol/L Chloride (98-107) mmol/L Carbon Dioxide (22-30) mmol/L BUN (9-20) mg/dL Glucose (74-99) mg/dL POC Glucose (mg/dL) 183 H 164 H 162 H (70-110) mg/dL Calcium (8.4-10.2) mg/dL 03/27/23 03/27/23 03/27/23 Range/Units 03:54 05:37 05:46 RBC 2.97 L (4.30-5.90) m/uL Hgb 9.2 L (13.0-17.5) gm/dL Hct 28.2 L (39.0-53.0) % RDW 15.9 H (11.5-15.5) % Sodium 135 L (137-145) mmol/L Potassium 3.2 L (3.5-5.1) mmol/L Chloride 108 H (98-107) mmol/L Carbon Dioxide 21 L (22-30) mmol/L BUN 22 H (9-20) mg/dL Glucose 151 H (74-99) mg/dL POC Glucose (mg/dL) 148 H (70-110) mg/dL Calcium 7.0 L (8.4-10.2) mg/dL Assessment and Plan Assessment: Acute hypoxemic respiratory failure, secondary to hospital-acquired pneumonia, S/P intubation and mechanical ventilation, on 03/20/2023, with successful extubation on 03/23/2023. Methicillin-resistant staph aureus pneumonia/tracheobronchitis. Acute abdominal pain, with small bowel obstruction/ileus. Acute sepsis, likely related to underlying pneumonia. Recent elective lumbosacral fusion, and decompression, March 2023, with a complicated postoperative course. Acute metabolic encephalopathy. History of lymphoma, S/P stem cell transplant. Acute non-ST segment elevation myocardial infarction. Paroxysmal atrial fibrillation. Plan: Plan dated 03/23/2023. The patient has been intubated since March 20. Despite being on sedation, the patient is somewhat responsive. The patient will have a spontaneous breathing trial today. We'll place him on pressure support of 5, and CPAP of 5. After about 20 or 30 minutes, the patient will set a weaning parameters, including a rapid shallow breathing index, and cuff leak test. Labs, x-rays, medications are reviewed. The patient remains on Cardizem 5 mg an hour, and heparin. The patient remains on cefepime. The patient also continues on peripheral parenteral nutrition. Additional recommendations and suggestions are forthcoming. Plan dated 03/24/2023. The patient. Watt daily interruption of sedation yesterday, and his spontaneous breathing trial, and was successfully extubated. Labs, x-rays, and medications are all reviewed. The patient continues on 2 L of oxygen. The patient's IV will be changed from D5 with half-normal saline to dextrose, at 75 mL an hour, because of the patient's hypernatremia. He remains on Cardizem at 10 mg an hour. Additional recommendations and suggestions are forthcoming. He did fail his bedside swallow evaluation. Plan dated 03/25/2023. The patient is seen today in room 255. The patient has been weaned down to room air. He continues on Cardizem at 10 mg an hour for his atrial fibrillation. He is getting TPN at 40 mL an hour. He will continue with D5W at 75 mL an hour, for his hypernatremia. Because of his rash, vancomycin was discontinued in favor of Zyvox. Additional recommendations and suggestions are forthcoming. Labs, x-rays, and medications are reviewed. The patient overall prognosis is guarded. Plan dated 03/26/2023. The patient is seen today in room 255. He's currently on room air. The patient's D5W which is running at 75 mL an hour, can be turned down to 40 mL an hour. The patient is eating. The patient did pass a swallow evaluation. Labs, x-rays, and medications are reviewed. The patient can be transferred out to the 3 S. floor, or general medical floor with telemetry. We will continue to follow the patient and make recommendations where appropriate. Prognosis is certainly guarded. Plan dated 03/27/2023. The patient is seen today in room 255. The patient is currently on room air. He is getting saline at KVO. We'll keep him on nystatin swish and swallow, and DC fluconazole. We'll also discontinue the Zyvox, and updrafts. The patient still has oropharyngeal candidiasis. Labs, x-rays, and medications are reviewed. The patient could be transferred to the general medical floor. C linically, he is much more stable and doing much better. We will continue to follow and make recommendations along the way. Time with Patient: Less than 30
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
[2023-03-27 12:24] LABS: Glucose,Whole Blood 147 mg/dL (70-110)
--- NOTE | 2023-03-27 12:42 | P.PN ---
Subjective Progress Note Date: 03/27/23 Patient is a 67-year-old male with prior lymphoma s/p stem cell transplant, hypothyroidism, hypertension, and degenerative disc disease who presented for elective lumbar sacral fusion with decompression. Patient underwent 2 to stage procedure with an anterior and posterior approach on . Postoperatively the patient developed ileus, A. fib with RVR, and a non-ST segment elevated myoc ardial infarction. General surgery and cardiology were consulted. Patient had an NG tube placed for possible ileus and was started on Reglan. He began having high-grade fevers and tachycardia on 03/18 and was started on vancomycin, cefepime, and Flagyl. He was seen by infectious disease. CXR on 03/19/23 showed infiltrate b/l lower lobes and right middle lobe. due to worsening respiratory distress the patient was transferred to the ICU on 03/19/23 and subsequently required intubation on 03/20/23. He was started on TPN on 03/21/23. He did require a cardizem gtt to control his A fib. He was successfully extubated on 03/23/23. He had a sputum culture that was mislabeled as a gastric aspirate which came back with MRSA. He developed significant hypernatremia and required D5W. Patient did develop a rash and therefore vancomycin was discontinued and he was transitioned to Zyvox. He completed a total of 10 days of antibiotics. He passed a swallow study was able to eat and His bowel function had returned so TPN was discontinued. Imaging: Acute abdominal series 03/19/23: Mildly dilated small bowel loops CT abdomen and pelvis 03/19/23: Inflammatory changes in the left lower quadrant extending towards the inguinal region with tiny amount of free air CT brain 03/16/23: No acute intracranial process Echocardiogram: Ejection fraction 45-50% with globally reduced left ventricular systolic function, aortic sclerosis Patient seen and examined at bedside. Patient seen and examined at bedside. He is feeling very tired today. No chest pain or shortness of breath Nursing he has been doing lots of exercises in his bed today he is very motivated to recover. He denies any chest pain, shortness of breath, nausea, vomiting. will d/c dennis. Vital signs reviewed General: nontoxic, no distress, appears at stated age Cardiovascular: S1S2 reg, no murmur, positive posterior tibial pulse bilateral, Lungs: Decreased bs b/l bilateral, no rhonchi, no rales , no accessory muscle use Abdominal: soft, nontender to palpation, no guarding, no appreciable organomegaly Ext: no gross muscle atrophy, diffuse anasarca upper extremity edema > lower, no contractures Neuro: CN II-XI grossly intact, no focal neuro deficits Psych: Alert, oriented, appropriate affect, slowed thinking Assessment/Plan: 67 yo Male s/p 2 stage surgery with L5-S1 ALIF and L4-S1 PLIF Severe sepsis due to MRSA pneumonia Toxic metabolic encephalopathy complicated by right upper extremity resting tremor Oral candidiasis Critical illness myopathy -Pulmonary note reviewed: Stop fluconazole. Patient has completed treatment for MRSA pneumonia. Transitioned to nystatin. - ID note reviewed and recommended a total of 10 days of treatment. -With Zyvoox day #2, completed 8 days of vancomycin -Neurology note reviewed: Await MRI brain to rule out any central insult as a result of resting tremor versus underlying Parkinson's disease -Infectious disease note reviewed from 03/24/23: Sputum culture was mislabeled as gastric aspirate and grew MRSA. -Pulmonary no reviewed: Continue with antibiotics, transitioned to Zyvox due to rash -Pulmonary hygiene -PM&R note reviewed: Would benefit from [facility]. In terms all currently pending. -Neurology note reviewed: Unable to have MRI due to rikki. However patient's been improving daily and likely does not require an MRI at this time. Non-ST elevation [place], type II Paroxysmal atrial fibrillation with RVR Cardiomyopathy, ejection fraction 45-50% HTN -cardiology note reviewed: Increased beta rubi dose, start oral anticoag ulation, additional dose of IV Lasix -Eliquis 2.5 twice daily, aspirin 81 mg daily -Off Nitropatch -Catapres patch 0.3 g every 7 days -Aspirin 300 mg daily change to ASA 81 mg oral -Lopressor 25 mg twice daily Postoperative ileus, resolved - Gen. surgery note reviewed: Recommend bowel regiment, lactulose and milk of magnesia given 03/26 -Add senna 1 tablet at night Hypothyroidism -Synthroid 250 g oral Resolved: Acute hypoxic respiratory failure, s/p mechanical ventilation Imaging: None new Data Review: Labs reviewed and remarkable for hemoglobin 9.2, sodium 135, potassium 3.2, carbon dioxide 21, chloride 108, glucose 151 DVT prophylaxis: Start Lovenox Today This dictation was prepared using [employer] voice recognition software. Though every attempt is made to correct errors during dictation some may still exist. Objective - Vital Signs Vital signs: Vital Signs Temp 98.4 F 03/27/23 08:00 Pulse 108 H 03/27/23 08:00 Resp 16 03/27/23 08:00 BP 132/83 03/27/23 08:00 Pulse Ox 97 03/27/23 08:00 FiO2 35 03/23/23 08:00 Intake & Output 03/26/23 03/27/23 03/27/23 18:59 06:59 18:59 Intake Total 555 Output Total 550 800 Balance 5 -800 Weight 109.9 kg Intake: IV 555 Dextrose 5% in Water 1, 155 000 ml @ 40 mls/hr IV . Q24H AGUILAR Rx#:[id number] Diltiazem 125 mg In 100 Sodium Chloride 0.9% 100 ml @ 10 MG/HR 10 mls/hr IV .[id number] AGUILAR Rx#: [id number] Linezolid 600 mg In 300 Dextrose/Water 1 300ml. bag @ 150 mls/hr IVPB Q12HR AGUILAR Rx#:[id number] Output: Urine 550 800 Uretheral (Dennis) 800 Other: Voiding Method Indwelling Catheter Indwelling Catheter Indwelling Catheter # Bowel Movements 2 ABP, PAP, CO, CI - Last Documented Arterial Blood Pressure 200/72 - Labs CBC & Chem 7: 03/27/23 05:46 03/27/23 03:54 Labs: Abnormal Lab Results - Last 24 Hours (Table) 03/26/23 03/26/23 03/27/23 Range/Units 17:53 23:44 03:54 RBC (4.30-5.90) m/uL Hgb (13.0-17.5) gm/dL Hct (39.0-53.0) % RDW (11.5-15.5) % Sodium 135 L (137-145) mmol/L Potassium 3.2 L (3.5-5.1) mmol/L Chloride 108 H (98-107) mmol/L Carbon Dioxide 21 L (22-30) mmol/L BUN 22 H (9-20) mg/dL Glucose 151 H (74-99) mg/dL POC Glucose (mg/dL) 164 H 162 H (70-110) mg/dL Calcium 7.0 L (8.4-10.2) mg/dL 03/27/23 03/27/23 03/27/23 Range/Units 05:37 05:46 12:22 RBC 2.97 L (4.30-5.90) m/uL Hgb 9.2 L (13.0-17.5) gm/dL Hct 28.2 L (39.0-53.0) % RDW 15.9 H (11.5-15.5) % Sodium (137-145) mmol/L Potassium (3.5-5.1) mmol/L Chloride (98-107) mmol/L Carbon Dioxide (22-30) mmol/L BUN (9-20) mg/dL Glucose (74-99) mg/dL POC Glucose (mg/dL) 148 H 147 H (70-110) mg/dL Calcium (8.4-10.2) mg/dL
[2023-03-27] MEDS: ACETAMINOPHEN TAB 325 MG TAB PO PRN (13:41)
--- NOTE | 2023-03-27 15:33 | P.PN ---
Subjective Progress Note Date: 03/27/23 Principal diagnosis: Postop fever Patient is a 67-year-old male electively admitted to the hospital 03/13/2023 in this patient who is s/p anterior lumbar interbody fusion L5-S1 insertion of interbody device with anterior approach patient did develop postop ileus and did have a new fever prompting infection disease consultation. Patient did have a worsening of his respiratory distress requiring transfer to the ICU and the patient was intubated morning of 03/20/2023 on today's evaluation that is 03/27/2023 the patient remains to be afebrile, the patient is breathing comfortably on room air patient denies having any chest pain , the patient cough has decreased intensity no nausea vomiting no abdominal pain no diarrhea. Has been combining of mostly rash to the upper body Patient white count is down to 9.1, creatinine 1.05 Objective - Vital Signs Vital signs: Vital Signs Temp 99.0 F 03/27/23 12:00 Pulse 100 03/27/23 12:00 Resp 22 03/27/23 12:00 BP 132/83 03/27/23 08:00 Pulse Ox 98 03/27/23 12:00 FiO2 35 03/23/23 08:00 Intake & Output 03/26/23 03/27/23 03/27/23 18:59 06:59 18:59 Intake Total 555 Output Total 550 800 Balance 5 -800 Weight 109.9 kg Intake: IV 555 Dextrose 5% in Water 1, 155 000 ml @ 40 mls/hr IV . Q24H AGUILAR Rx#:[id number] Diltiazem 125 mg In 100 Sodium Chloride 0.9% 100 ml @ 10 MG/HR 10 mls/hr IV .[id number] AGUILAR Rx#: [id number] Linezolid 600 mg In 300 Dextrose/Water 1 300ml. bag @ 150 mls/hr IVPB Q12HR AGUILAR Rx#:[id number] Output: Urine 550 800 Uretheral (Freeman) 800 Other: Voiding Method Indwelling Catheter Indwelling Catheter Indwelling Catheter # Bowel Movements 2 ABP, PAP, CO, CI - Last Documented Arterial Blood Pressure 200/72 - Exam GENERAL DESCRIPTION: An elderly male lying in bed in no distress RESPIRATORY SYSTEM: Unlabored breathing , decreased breath sounds at bases HEART: S1 S2 regular rate and rhythm , ABDOMEN: Soft , no tenderness EXTREMITIES: No edema feet - Labs CBC & Chem 7: 03/27/23 05:46 03/27/23 03:54 Labs: Abnormal Lab Results - Last 24 Hours (Table) 03/26/23 03/26/23 03/27/23 Range/Units 17:53 23:44 03:54 RBC (4.30-5.90) m/uL Hgb (13.0-17.5) gm/dL Hct (39.0-53.0) % RDW (11.5-15.5) % Sodium 135 L (137-145) mmol/L Potassium 3.2 L (3.5-5.1) mmol/L Chloride 108 H (98-107) mmol/L Carbon Dioxide 21 L (22-30) mmol/L BUN 22 H (9-20) mg/dL Glucose 151 H (74-99) mg/dL POC Glucose (mg/dL) 164 H 162 H (70-110) mg/dL Calcium 7.0 L (8.4-10.2) mg/dL 03/27/23 03/27/23 03/27/23 Range/Units 05:37 05:46 12:22 RBC 2.97 L (4.30-5.90) m/uL Hgb 9.2 L (13.0-17.5) gm/dL Hct 28.2 L (39.0-53.0) % RDW 15.9 H (11.5-15.5) % Sodium (137-145) mmol/L Potassium (3.5-5.1) mmol/L Chloride (98-107) mmol/L Carbon Dioxide (22-30) mmol/L BUN (9-20) mg/dL Glucose (74-99) mg/dL POC Glucose (mg/dL) 148 H 147 H (70-110) mg/dL Calcium (8.4-10.2) mg/dL Assessment and Plan (1) MRSA pneumonia Current Visit: Yes Status: Acute Code(s): J15.212 - PNEUMONIA DUE TO METHICILLIN RESISTANT STAPHYLOCOCCUS AUREUS SNOMED Code(s): 030946460704921 (2) Rash Current Visit: Yes Status: Acute Code(s): R21 - RASH AND OTHER NONSPECIFIC SKIN ERUPTION SNOMED Code(s): 823584063 Plan: 1patient with a postop fever in this patient with extensive surgery requiring anterior lumbar interbody fusion L5-S1 and insertion of interbody device developing a postop ileus now low-grade fever and tachycardia possible abdominal source however no significant tenderness was noticed on abdominal Examination,, patient did have a negative UA chest x-ray did shows mild strandy atelectasis lower lungs patient did have a CT abdominal pelvis Did show some inflammatory changes in the left lower quadrant and tiny air no mention of any abscess or perforation 2-blood culture currently pending CRP is elevated and procalcitonin is normal at 0.09 3the patient sputum cultures came back positive with MRSA which has been mislabeled as gastric aspirate blood culture has been negative. 4Patient seem to have shown clinical improvement , Zyvox has been discontinued by pulmonary patient will monitor closely off antibiotic therapy at this point 5-rash possibly drug related questionable related to Dilaudid should be discontinued Dictation was produced using [employer] dictation software. please excuse any grammatical, word or spelling errors. Time with Patient: Less than 30
[2023-03-27] MEDS: HYDROmorphone 0.5 MG/0.5 ML SYRINGE IVP PRN ×2 (16:54→23:52)
--- NOTE | 2023-03-27 17:03 | P.PN ---
Subjective Progress Note Date: 03/27/23 I am following-up with the patient and he is accompanied with his . He denies of any further tremors and feels he is improving on a daily basis. Objective - Vital Signs Vital signs: Vital Signs Temp 99.0 F 03/27/23 12:00 Pulse 103 H 03/27/23 16:00 Resp 10 L 03/27/23 16:00 BP 140/90 03/27/23 16:00 Pulse Ox 96 03/27/23 16:00 FiO2 35 03/23/23 08:00 Intake & Output 03/26/23 03/27/23 03/27/23 18:59 06:59 18:59 Intake Total 555 Output Total 550 800 Balance 5 -800 Weight 109.9 kg Intake: IV 555 Dextrose 5% in Water 1, 155 000 ml @ 40 mls/hr IV . Q24H AGU[facility] Rx#:[id number] Diltiazem 125 mg In 100 Sodium Chloride 0.9% 100 ml @ 10 MG/HR 10 mls/hr IV .[id number] AGUILAR Rx#: [id number] Linezolid 600 mg In 300 Dextrose/Water 1 300ml. bag @ 150 mls/hr IVPB Q12HR AGU[facility]AR Rx#:[id number] Output: Urine 550 800 Uretheral (Freeman) 800 Other: Voiding Method Indwelling Catheter Indwelling Catheter Indwelling Catheter # Bowel Movements 2 ABP, PAP, CO, CI - Last Documented Arterial Blood Pressure 200/72 - Exam General: Patient is sitting in a recliner chair and is not in acute distress. Neuro: The patient is awake alert oriented to self, place and time. He is more responsive and interactive today compared to yesterday. He is following simple commands. No aphasia or neglect. Pupils are round equal reactive to light. Visual vernon are full to confrontation. Extraocular movement is intact no nystagmus. No facial weakness. L No dysarthria. Motor is he's moving all extremities above gravity and no appreciable focality. No resting tremor is noted (better than yesterday). Had tremor on right hand on squeezing right hand. Sensation is normal to touch. Cerebellar: Normal finger to nose but felt end of action tremor. - Labs CBC & Chem 7: 03/27/23 05:46 03/27/23 03:54 Labs: Abnormal Lab Results - Last 24 Hours (Table) 03/26/23 03/26/23 03/27/23 Range/Units 17:53 23:44 03:54 RBC (4.30-5.90) m/uL Hgb (13.0-17.5) gm/dL Hct (39.0-53.0) % RDW (11.5-15.5) % Sodium 135 L (137-145) mmol/L Potassium 3.2 L (3.5-5.1) mmol/L Chloride 108 H (98-107) mmol/L Carbon Dioxide 21 L (22-30) mmol/L BUN 22 H (9-20) mg/dL Glucose 151 H (74-99) mg/dL POC Glucose (mg/dL) 164 H 162 H (70-110) mg/dL Calcium 7.0 L (8.4-10.2) mg/dL 03/27/23 03/27/23 03/27/23 Range/Units 05:37 05:46 12:22 RBC 2.97 L (4.30-5.90) m/uL Hgb 9.2 L (13.0-17.5) gm/dL Hct 28.2 L (39.0-53.0) % RDW 15.9 H (11.5-15.5) % Sodium (137-145) mmol/L Potassium (3.5-5.1) mmol/L Chloride (98-107) mmol/L Carbon Dioxide (22-30) mmol/L BUN (9-20) mg/dL Glucose (74-99) mg/dL POC Glucose (mg/dL) 148 H 147 H (70-110) mg/dL Calcium (8.4-10.2) mg/dL Assessment and Plan Assessment: * Altered mental status due to multifactorial: Septic encephalopathy and toxic metabolic encephalopathy--mentation improved * Right upper extremity resting tremor with flat affect and per has worsened during this admission since surgery and prior was subtle--drastically improved (so possible metabolic and medication effect) * Sepsis likely from abdominal source. * Acute hypoxic respiratory failure secondary to pneumonia, possible ARDS * Acute abdominal pain with small bowel obstruction/ileus being addressed by surgery on the case. * Paroxysmal atrial fibrillation * History of lymphoma and previous stem cell transplant. * Acute non-ST elevated MT * Status post elective lumbosacral fusion and decompression 03/13/2023. Plan: TSH: 3.68, vitamin B-12: 2660, folate: 16.80 and ammonia level <9.0 MRI Brain is cancelled since he is drastically better. But if patient if has any further tremors or confusion recommend to pursue MRI Brain. Will defer the rest of management to primary team and other specialist. The plan is discussed with patient, his who is at bedside and primary attending. There is no further neurological work-up. Will sign off. Please reconsult if needed. Dr. Damon will start neurology service tomorrow A.M. Time with Patient: Less than 30
[2023-03-27] MEDS: MELATONIN 5 MG TABLET PO SCH (22:09)
[2023-03-27] MEDS: SENNOSIDES 8.6 MG TAB PO SCH (22:10)
[2023-03-28] MEDS: HYDROmorphone 0.5 MG/0.5 ML SYRINGE IVP PRN ×2 (05:05→21:54)
[2023-03-28] MEDS: PANTOPRAZOLE 40 MG TABLET PO SCH (06:46)
[2023-03-28] MEDS: LEVOTHYROXINE 125 MCG TAB PO SCH (06:46)
--- NOTE | 2023-03-28 08:17 | P.PN ---
Subjective Progress Note Date: 03/27/23 CHIEF COMPLAINT: Ileus HISTORY OF PRESENT ILLNESS: The patient is a 67-year-old male status post anter ior exposure for lumbar fusion, 03/13/2023. Gen. surgery is following for ileus. He had a large bowel movement with lactulose and milk of magnesia. is at bedside. Overall he is feeling much better. He is tolerating diet. He is more awake and alert. ROS: No reports of nausea and vomiting. No chest pain. PHYSICAL EXAM: VITAL SIGNS: Reviewed CONSTITUTIONAL: Well developed. EYES: Conjuctivae without sclera icterus. HEAD, EARS, NOSE, THROAT: Moist buccal mucosa. Head is atraumatic, normocephalic. Hears conversational speech. No nasal drainage. RESPIRATORY: Nonlabored respiration. CARDIOVASCULAR: Palpable 2+ radial pulses. ABDOMEN: Nontender. MUSCULOSKELETAL: No gross deformity of the lower extremities noted. No clubbing. No cyanosis. SKIN: Good skin turgor. Well perfused. NEUROLOGIC: Cranial nerves II through XII grossly intact. No focal or lateralizing signs. PSYCH: Awake. Alert to person and place. CLINICAL LABS: Reviewed. WBC 12.4, now normal 9.1. ASSESSMENT: 1. Ileus 2. Sepsis acquired 3. Lumbar spondylolisthesis status post fusion 4. Hospital-acquired pneumonia 5. Metabolic encephalopathy 6. Constipation PLAN: 1. Clinically, patient's ileus is improved. 2. Recommend a bowel regimen. 3. We'll follow as needed. Objective - Vital Signs Vital signs: Vital Signs Temp 98.5 F 03/28/23 07:06 Pulse 115 H 03/28/23 07:06 Resp 18 03/28/23 07:06 BP 179/91 03/28/23 07:06 Pulse Ox 97 03/28/23 07:06 FiO2 35 03/23/23 08:00 Intake & Output 03/27/23 03/28/23 03/28/23 18:59 06:59 18:59 Output Total 2400 Balance -2400 Weight 109.9 kg Output: Urine 2400 Other: Voiding Method Indwelling Catheter # Voids 1 ABP, PAP, CO, CI - Last Documented Arterial Blood Pressure 200/72 - Labs CBC & Chem 7: 03/27/23 05:46 03/27/23 03:54 Labs: Abnormal Lab Results - Last 24 Hours (Table) 03/27/23 Range/Units 12:22 POC Glucose (mg/dL) 147 H (70-110) mg/dL
[2023-03-28] MEDS: APIXABAN 2.5 MG TABLET PO SCH ×2 (08:18→21:19)
[2023-03-28] MEDS: METOPROLOL TARTRATE 50 MG TAB PO SCH ×3 (08:18→21:18)
[2023-03-28] MEDS: ASPIRIN 81 MG PO SCH (08:18)
[2023-03-28] MEDS: NYSTATIN 100,000 UNIT/ML SUSP 500,000 UNIT/5 ML CUP PO SCH ×4 (08:19→23:14)
[2023-03-28] MEDS ORDERED: FUROSEMIDE 10 MG/ML 2 ML VIAL IV ONE (08:45)
--- NOTE | 2023-03-28 08:47 | P.PN ---
Subjective Progress Note Date: 03/28/23 Principal diagnosis: Atrial flutter The patient is a 67-year-old gentleman who was admitted to the hospital and underwent an L5-S1 fusion complicated by ileus and subsequently we involved in the care of the patient because of paroxysmal atrial fibrillation/atrial flutter and also elevated troponin. The echo revealed mildly impaired LV function with EF around 45% was mild valvular pathology. March 232022 The patient was seen and evaluated this morning. He continues to be intubated on mechanical ventilation. He continues to be nothing by mouth. Hemodynamically he is stable. Currently he is on Cardizem IV as well as heparin IV as well as metoprolol IV. We will continue the current medical regimen until the patient is not nothing by mouth anymore then at that point we will switch the patient into oral medication. I believe coronary angiogram need to be done to rule out severe CAD 1 sedation has better recovery. Currently no indication of any hemodynamic instability. He is maintaining normal sinus mechanism. March 242022 The patient was seen and evaluated this morning. Yesterday he did have an episode of chest pressure. The EKG revealed sinus mechanism with T-wave inversion in the inferolateral leads. He continues to be nothing by mouth. H eparin was systolic yesterday because of gastrointestinal bleeding which is currently under investigation. I am going to give the patient aspirin rectally. He is on beta rubi IV. He is on Cardizem IV. He cannot be on any statin at this point. I believe that the patient need to undergo coronary angiogram once we know that he is able to take his antiplatelet orally in case he needs to undergo an angioplasty. Otherwise I would continue the current medical regimen and continue follow-up with the patient. March 252022 The patient was seen and evaluated. He is in normal sinus mechanism. He continues to be on Cardizem IV. He underwent a swallow evaluation yesterday but he felt that. For that reason we will continue the current medical regimen including the current dose of Cardizem IV. He is maintaining normal sinus mechanism. Anticoagulation on hold because of gastrointestinal bleeding. No chest pain or chest discomfort and no shortness of breath. The hemoglobin this morning is 11.1. March 262022 The patient was seen and evaluated this morning. He has been maintaining normal sinus mechanism was sinus tachycardia. He is not nothing by mouth anymore. With that being saved going to increase the dose of beta rubi. He was started on Lovenox prophylactically. We will find out if he is not at risk of any gastrointestinal bleeding to DC Lovenox and start the patient on oral anticoagulation at least at a small dose. Meanwhile on examination he seems to be a do not this and retaining fluid. I'm going to give the patient 20 mg of Lasix IV only once. Continue the rest of the current medical regimen and follow-up with the patient. March 272022 The patient was seen and evaluated this morning. He has been maintaining normal sinus rhythm and his tachycardia has a slightly improved but his resting heart rate continues to be above 100 bpm. I'm going to increase the dose of beta rubi with metoprolol. Beside that we are going to DC Lovenox and start the patient on oral anticoagulation after we had the green light from the surgical team. He reports no pain in the chest. On examination he remains a do not is mostly in the upper extremities. I'm going to give an additional dose of Lasix today and continue monitor the kidney function and electrolytes and replace his potassium. The examination is remarkable for regular rhythm with diminished breathing sounds bilaterally and no lower extremities edema noted but upper extremities edema March 282022 The patient was seen and evaluated this morning. He was transferred out of the intensive care unit yesterday and currently he is on 4 S. He is feeling overall better. He is asymptomatic. Hemodynamically he is able beside sinus tachycardia. I'm going to increase the dose of beta rubi as the blood pressure permits. Beside that he is on oral anticoagulation. On examination distal LAD that is slightly and without being saved I'm going to give the patient additional 20 mg of Lasix IV. The examination is remarkable for regular rhythm with sinus tachycardia and upper extremities edema Assessment Status post L5 to S1 fusion Ileus Paroxysmal atrial fibrillation/flutter Acute non-ST elevation myocardial infarction Mild cardiomyopathy Plan Increase the dose of beta rubi Give the patient additional dose of Lasix IV Follow-up with the patient Objective - Vital Signs Vital signs: Vital Signs Temp 98.5 F 03/28/23 07:06 Pulse 115 H 03/28/23 07:06 Resp 18 03/28/23 07:06 BP 179/91 03/28/23 07:06 Pulse Ox 98 03/28/23 08:24 FiO2 35 03/23/23 08:00 Intake & Output 03/27/23 03/28/23 03/28/23 18:59 06:59 18:59 Output Total 2400 Balance -2400 Weight 109.9 kg Output: Urine 2400 Other: Voiding Method Indwelling Catheter # Voids 1 ABP, PAP, CO, CI - Last Documented Arterial Blood Pressure 200/72 - Labs CBC & Chem 7: 03/27/23 05:46 03/27/23 03:54 Labs: Abnormal Lab Results - Last 24 Hours (Table) 03/27/23 Range/Units 12:22 POC Glucose (mg/dL) 147 H (70-110) mg/dL
[2023-03-28 09:22] LABS: HCT 28.5 % (39.6-50.0); HGB 9.1 d/dL (13.0-17.0); MCH 30.1 pg (27.0-32.0); MCHC 31.9 d/dL (32.0-37.0); MCV 94.4 FL (80.0-97.0); NRBC Per 100 WBC 0 X 10*3/uL (0.00-0.01); Platelet Count 289 X 10*3/uL (140-440); RBC 3.02 X 10*6/uL (4.40-5.60); RDW 16.8 % (11.5-14.5); WBC 9.25 X 10*3/uL (4.50-10.00)
[2023-03-28] MEDS ORDERED: IPRATROPIUM-ALBUTEROL 3 ML NEB INHALATION PRN (09:51)
[2023-03-28] MEDS: IPRATROPIUM-ALBUTEROL 3 ML NEB INHALATION SCH ×3 (10:21→20:42)
[2023-03-28 10:24] LABS: BUN/Creat Ratio 15.36 Ratio (12.00-20.00); Blood Urea Nitrogen 16.9 mg/dL (9.0-27.0); Calcium 7.6 mg/dL (8.7-10.3); Carbon Dioxide 23.1 mmol/L (21.6-31.8); Chloride 106 mmol/L (96-109); Glucose 108 mg/dL (70-110); Magnesium 1.8 mg/dL (1.5-2.4); Phosphorus 2.7 mg/dL (2.4-5.1); Potassium 3.5 mmol/L (3.5-5.5); Sodium 141 mmol/L (135-145)
--- NOTE | 2023-03-28 11:02 | XR ---
EXAMINATION TYPE: XR chest 2V DATE OF EXAM: 03/28/2023 10:46 AM COMPARISON: Chest radiographs from 03/26/2023 TECHNIQUE: XR chest 2V Frontal and lateral views of the chest. CLINICAL INDICATION:Male, 67 years old with history of fever/pneumonia; FINDINGS: Lungs/Pleura: Retrocardiac opacity best appreciated on lateral view. No pleural effusion or pneumotho rax. Pulmonary vascularity: Unremarkable. Heart/mediastinum: Cardiomediastinal silhouette is unremarkable. Musculoskeletal: No acute osseous pathology. Degenerative changes of the spine. Lines: Stable position of right Mediport catheter with tip near the SVC. IMPRESSION: Similar retrocardiac opacity concerning for pneumonia.
[2023-03-28] MEDS: LINEZOLID 600 MG TAB PO SCH ×2 (11:17→21:19)
[2023-03-28] MEDS: FLUTICASONE 50MCG/SPRAY NASAL 16GM EA NOSTRIL SCH (11:17)
--- NOTE | 2023-03-28 11:46 | P.PN ---
Subjective Progress Note Date: 03/28/23 This is a 67-year-old white male, known to have history of lymphoma with stem cell transplant, initially admitted on 03/2023. Patient was admitted with lower extremities numbness and low back pain, underwent anterior retroperitoneal exposure performed by Dr. beckford,, he also underwent anterior lumbar interbody fusion L5-S1 insertion of interbody device, posterior lateral and interbody fusion L4-L5, posterior lateral instrumented fusion L5-S1, laminoforaminotomy for decompression and cage placement L4-L5, use of [employer] navigation for screw placement. His immediate postoperative course was uneventful, on 03/15/2023, patient was seen by cardiology for him than as stated the elevated myocardial infarction and he was seen by many other consultants including general surgery for small bowel obstruction/ileus. Cardiology recommended heparin, and general surgery recommended treatment with the Reglan and simethicone. Over the last 1 week, patient has been gradually getting worse, and he has been developing over the last 2 days worsening shortness of breath. Patient was placed on multiple antibiotics, broad-spectrum antibiotics after he was seen by infectious disease on 03/18/2023, patient was treated for presumptive abdominal sepsis and possible pneumonia. Cultures have been negative/mostly blood cultures and no other cultures were sent. Patient has been receiving cefepime, vancomycin, and Flagyl. Chest x-ray on 03/18/2023 showed minimal basilar atelectasis is no clear- cut evidence of infiltrate however chest x-ray on 03/19/2023 showed infiltrates involving the left lower lobe, left midlung, and the right lower lobe. Clearly the patient developed significant airspace disease while inpatient. While on the medical floor, patient was complaining of abdominal pain and distention, CT abdomen done yesterday showed inflammatory changes in the left lower quadrant extending towards the inguinal region and small tiny amount of free air which was evaluated by general surgery and felt this is most likely related to his recent retroperitoneal approach/surgery. Yesterday I was notified about this patient having worsening shortness of breath, hypoxia, tachycardia, and hypertension. I recommended transferring the patient to the ICU and a few hours after he was in the ICU, he continued to do poorly early this morning the patient had to be intubated and placed on mechanical ventilation. He is now on tidal volume of 500 assist control rate 20 FiO2 50% and PEEP of 5. ABG post intubation showed a pO2 of 231 pCO2 42 pH of 7.38. Hence FiO2 was cut down to 50%. WBC count is 12.8 hemoglobin is 11.1, basic metabolic profile is normal except for potassium of 3.4 BUN is 22 creatinine 1.11. Chest x-ray clearly shows bilateral air space disease consistent with pneumonia or possibly ARDS patient is now on propofol at 45 mcg/kg/m his IV fluid is a 100 mL an hour in the form of 0.9 normal saline, his also on Cardizem drip. Patient was reevaluated today on 03/21/2023, remains in the ICU intubated and mechanically ventilated. He is on assist control rate of 20 tidal volume 500 FiO2 50% and PEEP of 5. His ABG showed a pO2 of 100 pCO2 36 pH of 7.46, FiO2 was cut down to 45%. Patient remains on Cardizem drip at 10 mg per hour and I cut it down to 5 he is on propofol at 45 mcg/kg/m he is also on heparin as per cardiology. Antibiotics moreno patient is receiving vancomycin and Flagyl. TPN to be started today, and again I will cut down his Cardizem to 5 mg per hour. On lower sedation, the patient seems to be comprehending, and he follows simple instructions. Chest x-ray continues to show significant infiltrate in the left lower lobe and right lower lobe, hence I don't believe the patient is quite ready for weaning and extubation at this point in time. WBC count is 12.4 hemoglobin is 10.6, PTT is 88. Electronic for normal renal profile is normal blood sugar is 163 Reevaluated today on 03/22/2023, patient remains in the ICU intubated and mechanically ventilated sedated on propofol at 40 mcg/kg/m remains on Cardizem at 5 mg per hour remains on heparin as per cardiology. He is on assist control rate of 20, tidal volume 500 FiO2 40% PEEP of 5. ABG showed a pO2 of 103 pCO2 36 pH of 7.46, hence I cut down the FiO2 to 35%. Patient is also on TPN at 50 mL per hour. His chest x-ray is showing slight improvement in his infiltrate nonetheless continues to have significant consolidation in the left lower lobe, his right-sided pneumonia seems to be improving. Today the plan is to start addressing her mental status off sedation and decide whether the patient could be considered for weaning in the next 24 hours. Sedation holiday will be given today, and only assessment of mental status to be done today. WBC count remains at the time at 14.4 hemoglobin is 10.6 PTT is 53. Electrolytes are normal except for slightly elevated sodium of 146 and the rest of the labs are unremarkable. Progress note dated 03/23/2023. 67-year-old male who was admitted back on March 13. The patient is currently in the intensive care unit, being admitted there on March 19, and intubated on March 20. He remains on the mechanical ventilator. The patient is on volume assist control, rate 20, tidal volume 500, FiO2 35%, with a PEEP of 5. Blood gases show pO2 of 105, pCO2 34, and pH is 7.4. The patient is currently on saline at 20 mL an hour, a Cardizem drip at 5 mg an hour, peripheral parenteral nutrition at 40 mL an hour, and heparin via weightbase protocol. White count is 13.1, hemoglobin 10.5, hematocrit 33.2, and a platelet count 264,000. Sodium 147, potassium 4.1, chlorides 119, CO2 22, anion gap 6, BUN 41, and creatinine 1.02. Blood cultures have been negative. Gastric aspirate was positive for staph aureus. Chest x-ray shows stable bilateral consolidations and small effusions. Progress note dated 03/24/2023. 67-year-old male was admitted back on March 13. The patient is in the intensive care unit, and has been here since March 19. He was intubated the following day on March 20. Yesterday, his weaning parameters were excellent, and he was successfully extubated. He is currently on 2 L of oxygen by nasal cannula. He is getting Cardizem drip at 10 mg an hour, and TPN at 40 mL an hour. He's currently on D5 half-normal saline at 75 mL an hour, which will be converted D5W at 75 mL an hour. The patient failed his bedside swallow evaluation. White count of 17, hemoglobin 11.1, hematocrit 36.3, and platelet count 259,000. Sodium 151, potassium 4.3, chlorides 119, CO2 22, anion gap 10, BUN 39, and creatinine 0.98. Troponins were 0.443 and 0.445. From 811, the gastric aspirate Gram stain was positive for methicillin-resistant staph aureus. The patient's chest x-ray shows bilateral infiltrates, and small effusion, and is st able. Progress note dated 03/25/2023. 67-year-old male admitted back on March 13, and, has been in the intensive care unit, since March 19. He was intubated for respiratory failure on March 20, a nd, was successfully extubated on March 23. Currently, the patient is on room air. He's getting Cardizem at 10 mg an hour, and TPN at 40 mL an hour. He is getting D5W at 75 mL an hour, because of hypernatremia and hyperchloremia. Because of a rash, we'll discontinue vancomycin, and start him on Zyvox, 600 mg twice a day. White count 15, hemoglobin 11.1, hematocrit 34.8, and platelet count is 233,000. Sodium 148, potassium 4.2, chlorides 121, CO2 20, BUN 29, creatinine 0.95. Methicillin-resistant staph aureus was noted in the sputum, dated March 20. No follow-up chest x-ray today. Progress note dated 03/26/2023. 67-year-old male who was admitted on March 13, and is been in the intensive care unit since March 19. He was intubated for respiratory failure on March 20, and was extubated on March 23. Currently, he's on room air. He is getting D5W at 75 mL an hour. He is eating. He did pass a swallow evaluation. White count 12.4, he will become 0.3, hematocrit 32.3, and platelet count 214,000. Sodium 140, potassium 3.1, chlorides 111, CO2 25, BUN 23, creatinine 0.98. Sputum had evidence of methicillin-resistant staph aureus. Chest x-ray shows a stable if lower lobe infiltrate. Progress note dated 03/27/2023. The patient is again seen in room 255. He's currently on room air. He is getting saline at KVO. The patient's Zyvox will be discontinued. The patient will continue on nystatin swish and swallow for oropharyngeal candidiasis. We'll DC updrafts. The patient could be considered for transfer to the general medical floor. Currently labs include a white count 9.1, hemoglobin 9.2, hematocrit 28.2, and a normal platelet count. Sodium 135, potassium 3.2, chlorides 108, CO2 21, BUN 22, and creatinine 1.05. Sputum reese stain from March 20 was positive for methicillin-resistant staph aureus. Treated adequately with vancomycin and Zyvox. No chest x-ray today. The patient is seen today 03/28/2023 in follow-up on the regular medical floor. He is currently resting comfortably in bed. Awake and alert in no acute distress. Appearing more alert and stronger each day. He is maintaining O2 saturation the 90s on room air. Chest x-ray reveals similar retrocardiac opacity. Sputum was positive for MRSA. White count 9.2. Hemoglobin 9.1. Platelets 289. Sodium 141. Potassium 3.5. Bicarb 23. BUN 17. Creatinine 1.1. Glucose 108. He is continued on DuoNeb inhalations. Antibiotics in the form of Zyvox. Eliquis for anticoagulation. Objective - Vital Signs Vital signs: Vital Signs Temp 98.5 F 03/28/23 07:06 Pulse 96 03/28/23 10:32 Resp 18 03/28/23 07:06 BP 179/91 03/28/23 07:06 Pulse Ox 98 03/28/23 08:24 FiO2 35 03/23/23 08:00 Intake & Output 03/27/23 03/28/23 03/28/23 18:59 06:59 18:59 Output Total 2400 1050 Balance -2400 -1050 Weight 109.9 kg Output: Urine 2400 1050 Other: Voiding Method Indwelling Catheter Urinal # Voids 1 ABP, PAP, CO, CI - Last Documented Arterial Blood Pressure 200/72 - Exam Pleasant 67-year-old male patient. No acute distress, awake, alert, on room air. HEENT examination is grossly unremarkable. Neck supple. Full range of motion. No adenopathy thyromegaly or neck vein distention. Cardiovascular examination reveals regular rhythm rate. S1-S2 normal. No S3 or S4. No discernible murmur noted. Heart sounds are distant. Lungs reveal scattered bilateral rhonchi. No wheezes or crackles. Breath sounds are equal bilaterally. Saturations are 97 %. Abdomen soft with bowel sounds. No masses or tenderness. Extremities are intact. No cyanosis clubbing or edema. Skin reveals a macular papular erythematous rash, which is improved. Neurologic examination is brief but nonfocal. - Labs CBC & Chem 7: 03/28/23 04:42 03/28/23 04:42 Labs: Abnormal Lab Results - Last 24 Hours (Table) 03/27/23 03/28/23 03/28/23 Range/Units 12:22 04:42 04:42 RBC 3.02 L (4.40-5.60) X 10*6/uL Hgb 9.1 L (13.0-17.0) d/dL Hct 28.5 L (39.6-50.0) % MCHC 31.9 L (32.0-37.0) d/dL RDW 16.8 H (11.5-14.5) % POC Glucose (mg/dL) 147 H (70-110) mg/dL Calcium 7.6 L (8.7-10.3) mg/dL Assessment and Plan Assessment: Acute hypoxemic respiratory failure, secondary to hospital-acquired pneumonia, S/P intubation and mechanical ventilation, on 03/20/2023, with successful extubation on 03/23/2023. Methicillin-resistant staph aureus pneumonia/tracheobronchitis. Acute abdominal pain, with small bowel obstruction/ileus. Acute sepsis, likely related to underlying pneumonia. Recent elective lumbosacral fusion, and decompression, March 2023, with a complicated postoperative course. Acute metabolic encephalopathy. History of lymphoma, S/P stem cell transplant. Acute non-ST segment elevation myocardial infarction. Paroxysmal atrial fibrillation. Plan: The patient was seen and evaluated Currently stable and on room air Labs and medications reviewed Antibiotics per ID services Plan is for rehabilitation facility at discharge We will continue to follow I have personally seen and examined the patient, performed the documentation and the assessment and plan as written. Number of minutes spent on the visit: 10.
[2023-03-28] MEDS ORDERED: IPRATROPIUM-ALBUTEROL 3 ML NEB INHALATION SCH (12:00)
--- NOTE | 2023-03-28 14:48 | P.PN ---
Subjective Progress Note Date: 03/28/23 Patient is a 67-year-old male with prior lymphoma s/p stem cell transplant, hypothyroidism, hypertension, and degenerative disc disease who presented for elective lumbar sacral fusion with decompression. Patient underwent 2 to stage procedure with an anterior and posterior approach on . Postoperatively the patient developed ileus, A. fib with RVR, and a non-ST segment elevated myoc ardial infarction. General surgery and cardiology were consulted. Patient had an NG tube placed for possible ileus and was started on Reglan. He began having high-grade fevers and tachycardia on 03/18 and was started on vancomycin, cefepime, and Flagyl. He was seen by infectious disease. CXR on 03/19/23 showed infiltrate b/l lower lobes and right middle lobe. due to worsening respiratory distress the patient was transferred to the ICU on 03/19/23 and subsequently required intubation on 03/20/23. He was started on TPN on 03/21/23. He did require a cardizem gtt to control his A fib. He was successfully extubated on 03/23/23. He had a sputum culture that was mislabeled as a gastric aspirate which came back with MRSA. He developed significant hypernatremia and required D5W. Patient did develop a rash and therefore vancomycin was discontinued and he was transitioned to Zyvox. He completed a total of 10 days of antibiotics. He passed a swallow study was able to eat and His bowel function had returned so TPN was discontinued. Imaging: Acute abdominal series 03/19/23: Mildly dilated small bowel loops CT abdomen and pelvis 03/19/23: Inflammatory changes in the left lower quadrant extending towards the inguinal region with tiny amount of free air CT brain 03/16/23: No acute intracranial process Echocardiogram: Ejection fraction 45-50% with globally reduced left ventricular systolic function, aortic sclerosis Patient seen and examined at bedside. He is doing well today. Pain is well controlled. He believes had a bowel movement yesterday. No unusual chest pain or shortness of breath. His right arm is hurting. Vital signs reviewed General: nontoxic, no distress, appears at stated age Cardiovascular: S1S2 reg, no murmur, positive posterior tibial pulse bilateral, Lungs: Decreased bs b/l bilateral, no rhonchi, no rales , no accessory muscle use Abdominal: soft, nontender to palpation, no guarding, no appreciable organomegaly Ext: no gross muscle atrophy, upper extremity edema r>L, no contractures Neuro: CN II-XI grossly intact, no focal neuro deficits Psych: Alert, oriented, appropriate affect Assessment/Plan: 67 yo Male s/p 2 stage surgery with L5-S1 ALIF and L4-S1 PLIF Severe sepsis due to MRSA pneumonia Toxic metabolic encephalopathy complicated by right upper extremity resting tremor Oral candidiasis Critical illness myopathy -Pulmonary note reviewed: Antibiotics per ID -Case discussed with Dr. Meza. He like to reinitiate antibiotics therapy for a longer course given the patient's fever last evening. - Zyvoox 600 mg BID PO, D # 11 of MRSA coverage, but has been intermittent -Pulmonary hygiene -PM&R note reviewed: Would benefit from IPR, insurance auth current pending currently pending. Right upper extremity edema that is greater than left upper extremity edema - order right upper extremity ultrasound to rule out DVT Non-ST elevation RI, type II Paroxysmal atrial fibrillation with RVR Cardiomyopathy, ejection fraction 45-50% HTN -Case discussed with Dr. Sanchez on 03/27 and patient would benefit from outpatient ischemic evaluation once he has recovered from surgery. No reviewed from 03/28 one additional dose of Lasix. -Eliquis 2.5 twice daily, aspirin 81 mg daily -Catapres patch 0.3 g every 7 days -Lopressor 100 mg twice daily Postoperative ileus, resolved - Gen. surgery note reviewed: Recommend bowel regiment, lactulose and milk of magnesia given 03/26 -Add senna 1 tablet at night Hypothyroidism -Synthroid 250 g oral Resolved: Acute hypoxic respiratory failure, s/p mechanical ventilation Imaging: None new Data Review: Labs reviewed and remarkable for hemoglobin 9.2, sodium 135, potassium 3.2, carbon dioxide 21, chloride 108, glucose 151 T max in 24 hours 100.6 DVT prophylaxis: Eliquis This dictation was prepared using [employer] voice recognition software. Though every attempt is made to correct errors during dictation some may still exist. Objective - Vital Signs Vital signs: Vital Signs Temp 98.2 F 03/28/23 13:24 Pulse 93 03/28/23 13:24 Resp 18 03/28/23 13:24 BP 153/83 03/28/23 13:24 Pulse Ox 99 03/28/23 13:24 FiO2 35 03/23/23 08:00 Intake & Output 03/27/23 03/28/23 03/28/23 18:59 06:59 18:59 Output Total 2400 1050 Balance -2400 -1050 Weight 109.9 kg Output: Urine 2400 1050 Other: Voiding Method Indwelling Catheter Urinal # Voids 1 # Bowel Movements 1 ABP, PAP, CO, CI - Last Documented Arterial Blood Pressure 200/72 - Labs CBC & Chem 7: 03/28/23 04:42 03/28/23 04:42 Labs: Abnormal Lab Results - Last 24 Hours (Table) 03/28/23 03/28/23 Range/Units 04:42 04:42 RBC 3.02 L (4.40-5.60) X 10*6/uL Hgb 9.1 L (13.0-17.0) d/dL Hct 28.5 L (39.6-50.0) % MCHC 31.9 L (32.0-37.0) d/dL RDW 16.8 H (11.5-14.5) % Calcium 7.6 L (8.7-10.3) mg/dL
--- NOTE | 2023-03-28 15:10 | P.PN ---
Subjective Progress Note Date: 03/28/23 Principal diagnosis: MRSA pneumonia Patient is a 67-year-old male electively admitted to the hospital 03/13/2023 in this patient who is s/p anterior lumbar interbody fusion L5-S1 insertion of interbody device with anterior approach patient did develop postop ileus and did have a new fever prompting infection disease consultation. Patient did have a worsening of his respiratory distress requiring transfer to the ICU and the patient was intubated morning of 03/20/2023 on today's evaluation that is 03/28/2023, the patient did spike a fever of 100.6 F around 2 this morning patient is afebrile since that he is breathing comfortably on room air he denies having any chest pain he did have a cough not become any sputum no nausea no vomiting no abdominal pain no diarrhea. Blood work from this morning is currently pending. Objective - Vital Signs Vital signs: Vital Signs Temp 98.5 F 03/28/23 07:06 Pulse 111 H 03/28/23 07:25 Resp 18 03/28/23 07:06 BP 179/91 03/28/23 07:06 Pulse Ox 98 03/28/23 08:24 FiO2 35 03/23/23 08:00 Intake & Output 03/27/23 03/28/23 03/28/23 18:59 06:59 18:59 Output Total 2400 650 Balance -2400 -650 Weight 109.9 kg Output: Urine 2400 650 Other: Voiding Method Indwelling Catheter Urinal # Voids 1 ABP, PAP, CO, CI - Last Documented Arterial Blood Pressure 200/72 - Exam GENERAL DESCRIPTION: An elderly male lying in bed in no distress RESPIRATORY SYSTEM: Unlabored breathing , decreased breath sounds at bases HEART: S1 S2 regular rate and rhythm , ABDOMEN: Soft , no tenderness EXTREMITIES: No edema feet - Labs CBC & Chem 7: 03/28/23 04:42 03/28/23 04:42 Labs: Abnormal Lab Results - Last 24 Hours (Table) 03/27/23 03/28/23 Range/Units 12:22 04:42 RBC 3.02 L (4.40-5.60) X 10*6/uL Hgb 9.1 L (13.0-17.0) d/dL Hct 28.5 L (39.6-50.0) % MCHC 31.9 L (32.0-37.0) d/dL RDW 16.8 H (11.5-14.5) % POC Glucose (mg/dL) 147 H (70-110) mg/dL Assessment and Plan (1) MRSA pneumonia Current Visit: Yes Status: Acute Code(s): J15.212 - PNEUMONIA DUE TO METHICILLIN RESISTANT STAPHYLOCOCCUS AUREUS SNOMED Code(s): 466056029236286 (2) Rash Current Visit: Yes Status: Acute Code(s): R21 - RASH AND OTHER NONSPECIFIC SKIN ERUPTION SNOMED Code(s): 584592684 Plan: 1patient with a postop fever in this patient with extensive surgery requiring anterior lumbar interbody fusion L5-S1 and insertion of interbody device developing a postop ileus now low-grade fever and tachycardia possible abdominal source however no significant tenderness was noticed on abdominal Examination,, patient did have a negative UA chest x-ray did shows mild strandy atelectasis lower lungs patient did have a CT abdominal pelvis Did show some inflammatory changes in the left lower quadrant and tiny air no mention of any abscess or perforation 2-blood culture currently pending CRP is elevated and procalcitonin is normal at 0.09 3the patient sputum cultures came back positive with MRSA which has been mislabeled as gastric aspirate blood culture has been negative. 4-rash possibly drug related questionable related to Dilaudid which was discontinued and rash is better this am 5patient did have a new fever which is slightly concerning we will repeat a blood culture check a CRP procalcitonin repeat a chest x-ray empirically start oral Zyvox and monitor clinical course closely discussed with admitting team Dictation was produced using [employer] dictation software. please excuse any grammatical, word or spelling errors.
--- NOTE | 2023-03-28 15:29 | US ---
EXAMINATION TYPE: US venous doppler duplex UE RT DATE OF EXAM: 03/28/2023 COMPARISON: NONE CLINICAL INDICATION: Male, 67 years old with history of edema; edema has picc line in SIDE PERFORMED: right Right Arm: Negative for DVT IMPRESSION: Grayscale, color doppler, spectral doppler imaging performed of the deep veins of the upper extremiti es. There is normal flow, compressibility and vascular waveforms.
[2023-03-28 21:18] LABS: Basophils % (A) 0 %; Eosinophils # (A) 0.2 k/uL (0-0.7); Eosinophils % (A) 2 %; HCT 29.9 % (39.0-53.0); HGB 9.8 gm/dL (13.0-17.5); Lymphocytes # (A) 0.5 k/uL (1.0-4.8); Lymphocytes % (A) 6 %; MCH 30.8 pg (25.0-35.0); MCHC 32.8 g/dL (31.0-37.0); MCV 94.2 fL (80.0-100.0); Mean Platelet Volume 8.5; Monocytes # (A) 0.3 k/uL (0-1.0); Monocytes % (A) 3 %; Neutrophils # (A) 6.4 k/uL (1.3-7.7); Neutrophils % (A) 87 %; Platelet Count 307 k/uL (150-450); RBC 3.17 m/uL (4.30-5.90); RDW 15.7 % (11.5-15.5); WBC 7.3 k/uL (3.8-10.6)
[2023-03-28] MEDS: MELATONIN 5 MG TABLET PO SCH (21:19)
[2023-03-28] MEDS: SENNOSIDES 8.6 MG TAB PO SCH (21:19)
[2023-03-29] MEDS: diphenhydrAMINE ELIXIR 25 MG/10 ML CUP PO SCH ×2 (00:47→21:55)
[2023-03-29] MEDS: HYDROmorphone 0.5 MG/0.5 ML SYRINGE IVP PRN ×3 (02:01→19:27)
[2023-03-29] MEDS: LEVOTHYROXINE 125 MCG TAB PO SCH (05:41)
[2023-03-29] MEDS: IPRATROPIUM-ALBUTEROL 3 ML NEB INHALATION SCH ×4 (07:58→20:21)
[2023-03-29] MEDS: METOPROLOL TARTRATE 50 MG TAB PO SCH ×2 (09:01→19:27)
[2023-03-29] MEDS: PANTOPRAZOLE 40 MG TABLET PO SCH (09:01)
[2023-03-29] MEDS: NYSTATIN 100,000 UNIT/ML SUSP 500,000 UNIT/5 ML CUP PO SCH ×4 (09:01→21:56)
[2023-03-29] MEDS: APIXABAN 2.5 MG TABLET PO SCH ×2 (09:02→21:55)
[2023-03-29] MEDS: LINEZOLID 600 MG TAB PO SCH ×2 (09:02→21:55)
[2023-03-29] MEDS: ASPIRIN 81 MG PO SCH (09:02)
[2023-03-29] MEDS: FLUTICASONE 50MCG/SPRAY NASAL 16GM EA NOSTRIL SCH (09:02)
--- NOTE | 2023-03-29 10:57 | P.PN ---
Subjective Progress Note Date: 03/29/23 Principal diagnosis: Respiratory failure. Acute hypoxic respiratory failure, abdominal sepsis, pneumonia This is a 67-year-old white male, known to have history of lymphoma with stem cell transplant, initially admitted on 03/2023. Patient was admitted with lower extremities numbness and low back pain, underwent anterior retroperitoneal exposure performed by Dr. beckford,, he also underwent anterior lumbar interbody fusion L5-S1 insertion of interbody device, posterior lateral and interbody fusion L4-L5, posterior lateral instrumented fusion L5-S1, laminoforaminotomy for decompression and cage placement L4-L5, use of [employer] navigation for screw placement. His immediate postoperative course was uneventful, on 03/15/2023, patient was seen by cardiology for him than as stated the elevated myocardial infarction and he was seen by many other consultants including general surgery for small bowel obstruction/ileus. Cardiology recommended heparin, and general surgery recommended treatment with the Reglan and simethicone. Over the last 1 week, patient has been gradually getting worse, and he has been developing over the last 2 days worsening shortness of breath. Patient was placed on multiple antibiotics, broad-spectrum antibiotics after he was seen by infectious disease on 03/18/2023, patient was treated for presumptive abdominal sepsis and possible pneumonia. Cultures have been negative/mostly blood cultures and no other cultures were sent. Patient has been receiving cefepime, vancomycin, and Flagyl. Chest x-ray on 03/18/2023 showed minimal basilar atelectasis is no clear- cut evidence of infiltrate however chest x-ray on 03/19/2023 showed infiltrates involving the left lower lobe, left midlung, and the right lower lobe. Clearly the patient developed significant airspace disease while inpatient. While on the medical floor, patient was complaining of abdominal pain and distention, CT abdomen done yesterday showed inflammatory changes in the left lower quadrant extending towards the inguinal region and small tiny amount of free air which was evaluated by general surgery and felt this is most likely related to his recent retroperitoneal approach/surgery. Yesterday I was notified about this patient having worsening shortness of breath, hypoxia, tachycardia, and hypertension. I recommended transferring the patient to the ICU and a few hours after he was in the ICU, he continued to do poorly early this morning the patient had to be intubated and placed on mechanical ventilation. He is now on tidal volume of 500 assist control rate 20 FiO2 50% and PEEP of 5. ABG post intubation showed a pO2 of 231 pCO2 42 pH of 7.38. Hence FiO2 was cut down to 50%. WBC count is 12.8 hemoglobin is 11.1, basic metabolic profile is normal except for potassium of 3.4 BUN is 22 creatinine 1.11. Chest x-ray clearly shows bilateral air space disease consistent with pneumonia or possibly ARDS patient is now on propofol at 45 mcg/kg/m his IV fluid is a 100 mL an hour in the form of 0.9 normal saline, his also on Cardizem drip. Patient was reevaluated today on 03/21/2023, remains in the ICU intubated and mechanically ventilated. He is on assist control rate of 20 tidal volume 500 FiO2 50% and PEEP of 5. His ABG showed a pO2 of 100 pCO2 36 pH of 7.46, FiO2 was cut down to 45%. Patient remains on Cardizem drip at 10 mg per hour and I cut it down to 5 he is on propofol at 45 mcg/kg/m he is also on heparin as per cardiology. Antibiotics moreno patient is receiving vancomycin and Flagyl. TPN to be started today, and again I will cut down his Cardizem to 5 mg per hour. On lower sedation, the patient seems to be comprehending, and he follows simple instructions. Chest x-ray continues to show significant infiltrate in the left lower lobe and right lower lobe, hence I don't believe the patient is quite ready for weaning and extubation at this point in time. WBC count is 12.4 hemoglobin is 10.6, PTT is 88. Electronic for normal renal profile is normal blood sugar is 163 Reevaluated today on 03/22/2023, patient remains in the ICU intubated and mechanically ventilated sedated on propofol at 40 mcg/kg/m remains on Cardizem at 5 mg per hour remains on heparin as per cardiology. He is on assist control rate of 20, tidal volume 500 FiO2 40% PEEP of 5. ABG showed a pO2 of 103 pCO2 36 pH of 7.46, hence I cut down the FiO2 to 35%. Patient is also on TPN at 50 mL per hour. His chest x-ray is showing slight improvement in his infiltrate nonetheless continues to have significant consolidation in the left lower lobe, his right-sided pneumonia seems to be improving. Today the plan is to start addressing her mental status off sedation and decide whether the patient could be considered for weaning in the next 24 hours. Sedation holiday will be given today, and only assessment of mental status to be done today. WBC count remains at the time at 14.4 hemoglobin is 10.6 PTT is 53. Electrolytes are normal except for slightly elevated sodium of 146 and the rest of the labs are unremarkable. Progress note dated 03/23/2023. 67-year-old male who was admitted back on March 13. The patient is currently in the intensive care unit, being admitted there on March 19, and intubated on March 20. He remains on the mechanical ventilator. The patient is on volume assist control, rate 20, tidal volume 500, FiO2 35%, with a PEEP of 5. Blood gases show pO2 of 105, pCO2 34, and pH is 7.4. The patient is currently on saline at 20 mL an hour, a Cardizem drip at 5 mg an hour, peripheral parenteral nutrition at 40 mL an hour, and heparin via weightbase protocol. White count is 13.1, hemoglobin 10.5, hematocrit 33.2, and a platelet count 264,000. Sodium 147, potassium 4.1, chlorides 119, CO2 22, anion gap 6, BUN 41, and creatinine 1.02. Blood cultures have been negative. Gastric aspirate was positive for staph aureus. Chest x-ray shows stable bilateral consolidations and small effusions. Progress note dated 03/24/2023. 67-year-old male was admitted back on March 13. The patient is in the intensive care unit, and has been here since March 19. He was intubated the following day on March 20. Yesterday, his weaning parameters were excellent, and he was successfully extubated. He is currently on 2 L of oxygen by nasal cannula. He is getting Cardizem drip at 10 mg an hour, and TPN at 40 mL an hour. He's currently on D5 half-normal saline at 75 mL an hour, which will be converted D5W at 75 mL an hour. The patient failed his bedside swallow evaluation. White count of 17, hemoglobin 11.1, hematocrit 36.3, and platelet count 259,000. Sodium 151, potassium 4.3, chlorides 119, CO2 22, anion gap 10, BUN 39, and creatinine 0.98. Troponins were 0.443 and 0.445. From 811, the gastric aspirate Gram stain was positive for methicillin-resistant staph aureus. The patient's chest x-ray shows bilateral infiltrates, and small effusion, and is stable. Progress note dated 03/25/2023. 67-year-old male admitted back on March 13, and, has been in the intensive care unit, since March 19. He was intubated for respiratory failure on March 20, and, was successfully extubated on March 23. Currently, the patient is on room air. He's getting Cardizem at 10 mg an hour, and TPN at 40 mL an hour. He is getting D5W at 75 mL an hour, because of hypernatremia and hyperchloremia. Because of a rash, we'll discontinue vancomycin, and start him on Zyvox, 600 mg twice a day. White count 15, hemoglobin 11.1, hematocrit 34.8, and platelet count is 233,000. Sodium 148, potassium 4.2, chlorides 121, CO2 20, BUN 29, creatinine 0.95. Methicillin-resistant staph aureus was noted in the sputum, dated March 20. No follow-up chest x-ray today. Progress note dated 03/26/2023. 67-year-old male who was admitted on March 13, and is been in the intensive care unit since March 19. He was intubated for respiratory failure on March 20, and was extubated on March 23. Currently, he's on room air. He is getting D5W at 75 mL an hour. He is eating. He did pass a swallow evaluation. White count 12.4, he will become 0.3, hematocrit 32.3, and platelet count 214,000. Sodium 140, potassium 3.1, chlorides 111, CO2 25, BUN 23, creatinine 0.98. Sputum had evidence of methicillin-resistant staph aureus. Chest x-ray shows a stable if lower lobe infiltrate. Progress note dated 03/27/2023. The patient is again seen in room 255. He's currently on room air. He is getting saline at KVO. The patient's Zyvox will be discontinued. The patient will continue on nystatin swish and swallow for oropharyngeal candidiasis. We'll DC updrafts. The patient could be considered for transfer to the general medical floor. Currently labs include a white count 9.1, hemoglobin 9.2, hematocrit 28.2, and a normal platelet count. Sodium 135, potassium 3.2, chlorides 108, CO2 21, BUN 22, and creatinine 1.05. Sputum reese stain from March 20 was positive for methicillin-resistant staph aureus. Treated adequately with vancomycin and Zyvox. No chest x-ray today. Progress note dated 03/29/2023. The patient is seen today in room 462. The patient's on room air. He is getting saline at 10 mL an hour. He complains about being short of breath and so I ask his nurse to place him on oxygen, by nasal cannula at 2 L. The patient continues on Zyvox. No new labs today. Labs from March 28 have been reviewed. Chest x-ray continues to show a retrocardiac opacity. Right arm, negative for DVT. Objective - Vital Signs Vital signs: Vital Signs Temp 98.6 F 03/29/23 07:17 Pulse 97 03/29/23 08:17 Resp 20 03/29/23 07:17 BP 173/83 03/29/23 07:17 Pulse Ox 91 L 03/29/23 07:17 FiO2 35 03/23/23 08:00 Intake & Output 03/28/23 03/29/23 03/29/23 18:59 06:59 18:59 Intake Total 118 Output Total 1050 Balance -1050 118 Intake: Oral 118 Output: Urine 1050 Other: Voiding Method Urinal Diaper # Voids 1 1 # Bowel Movements 3 1 ABP, PAP, CO, CI - Last Documented Arterial Blood Pressure 200/72 - Exam No acute distress, awake, alert, on room air. Room air saturations are 95 %. HEENT examination is grossly unremarkable. Neck supple. Full range of motion. No adenopathy thyromegaly or neck vein distention. Cardiovascular examination reveals regular rhythm rate. S1-S2 normal. No S3 or S4. No discernible murmur noted. Heart sounds are distant. Heart rate 97 bpm. Lungs reveal scattered bilateral rhonchi. No wheezes or crackles. Breath sounds are equal bilaterally. Saturations are 95 %. Abdomen soft with bowel sounds. No masses or tenderness. Extremities are intact. No cyanosis clubbing or edema. Skin reveals a macular papular erythematous rash, which is improved. Neurologic examination is brief but nonfocal. - Labs CBC & Chem 7: 03/28/23 20:52 03/28/23 04:42 Labs: Abnormal Lab Results - Last 24 Hours (Table) 03/28/23 Range/Units 20:52 RBC 3.17 L (4.30-5.90) m/uL Hgb 9.8 L (13.0-17.5) gm/dL Hct 29.9 L (39.0-53.0) % RDW 15.7 H (11.5-15.5) % Lymphocytes # 0.5 L (1.0-4.8) k/uL Assessment and Plan Assessment: Acute hypoxemic respiratory failure, secondary to hospital-acquired pneumonia, S/P intubation and mechanical ventilation, on 03/20/2023, with successful extubation on 03/23/2023. Methicillin-resistant staph aureus pneumonia/tracheobronchitis. Acute abdominal pain, with small bowel obstruction/ileus. Acute sepsis, likely related to underlying pneumonia. Recent elective lumbosacral fusion, and decompression, March 2023, with a complicated postoperative course. Acute metabolic encephalopathy. History of lymphoma, S/P stem cell transplant. Acute non-ST segment elevation myocardial infarction. Paroxysmal atrial fibrillation. Plan: Plan dated 03/23/2023. The patient has been intubated since March 20. Despite being on sedation, the patient is somewhat responsive. The patient will have a spontaneous breathing trial today. We'll place him on pressure support of 5, and CPAP of 5. After a bout 20 or 30 minutes, the patient will set a weaning parameters, including a rapid shallow breathing index, and cuff leak test. Labs, x-rays, medications are reviewed. The patient remains on Cardizem 5 mg an hour, and heparin. The patient remains on cefepime. The patient also continues on peripheral parenteral nutrition. Additional recommendations and suggestions are forthcoming. Plan dated 03/24/2023. The patient. Watt daily interruption of sedation yesterday, and his spontaneous breathing trial, and was successfully extubated. Labs, x-rays, and medications are all reviewed. The patient continues on 2 L of oxygen. The patient's IV will be changed from D5 with half-normal saline to dextrose, at 75 mL an hour, because of the patient's hypernatremia. He remains on Cardizem at 10 mg an hour. Additional recommendations and suggestions are forthcoming. He did fail his bedside swallow evaluation. Plan dated 03/25/2023. The patient is seen today in room 255. The patient has been weaned down to room air. He continues on Cardizem at 10 mg an hour for his atrial fibrillation. He is getting TPN at 40 mL an hour. He will continue with D5W at 75 mL an hour, for his hypernatremia. Because of his rash, vancomycin was discontinued in favor of Zyvox. Additional recommendations and suggestions are forthcoming. Labs, x-rays, and medications are reviewed. The patient overall prognosis is guarded. Plan dated 03/26/2023. The patient is seen today in room 255. He's currently on room air. The patient's D5W which is running at 75 mL an hour, can be turned down to 40 mL an hour. The patient is eating. The patient did pass a swallow evaluation. Labs, x-rays, and medications are reviewed. The patient can be transferred out to the 3 S. floor, or general medical floor with telemetry. We will continue to follow the patient and make recommendations where appropriate. Prognosis is certainly guarded. Plan dated 03/27/2023. The patient is seen today in room 255. The patient is currently on room air. He is getting saline at KVO. We'll keep him on nystatin swish and swallow, and DC fluconazole. We'll also discontinue the Zyvox, and updrafts. The patient still has oropharyngeal candidiasis. Labs, x-rays, and medications are reviewed. The patient could be transferred to the general medical floor. Clinically, he is much more stable and doing much better. We will continue to follow and make recommendations along the way. Plan dated 03/29/2023. The patient is seen today in room 462. I saw him last, on the , in the intensive care unit. The patient continues on Zyvox, her infectious diseases. Labs, x-rays, medications are reviewed. The patient mentioned that he was short of breath, and so I added 2 L of oxygen by nasal cannula. Labs, x-rays, medications are reviewed. The patient's overall prognosis is guarded. We'll continue to follow make recommendations. Time with Patient: Less than 30
--- NOTE | 2023-03-29 12:14 | P.PN ---
Subjective Progress Note Date: 03/29/23 Patient is a 67-year-old male with prior lymphoma s/p stem cell transplant, hypothyroidism, hypertension, and degenerative disc disease who presented for elective lumbar sacral fusion with decompression. Patient underwent 2 to stage procedure with an anterior and posterior approach on . Postoperatively the patient developed ileus, A. fib with RVR, and a non-ST segment elevated myoc ardial infarction. General surgery and cardiology were consulted. Patient had an NG tube placed for possible ileus and was started on Reglan. He began having high-grade fevers and tachycardia on 03/18 and was started on vancomycin, cefepime, and Flagyl. He was seen by infectious disease. CXR on 03/19/23 showed infiltrate b/l lower lobes and right middle lobe. due to worsening respiratory distress the patient was transferred to the ICU on 03/19/23 and subsequently required intubation on 03/20/23. He was started on TPN on 03/21/23. He did require a cardizem gtt to control his A fib. He was successfully extubated on 03/23/23. He had a sputum culture that was mislabeled as a gastric aspirate which came back with MRSA. He developed significant hypernatremia and required D5W. Patient did develop a rash and therefore vancomycin was discontinued and he was transitioned to Zyvox. He completed a total of 10 days of antibiotics. He passed a swallow study was able to eat and His bowel function had returned so TPN was discontinued. Imaging: Acute abdominal series 03/19/23: Mildly dilated small bowel loops CT abdomen and pelvis 03/19/23: Inflammatory changes in the left lower quadrant extending towards the inguinal region with tiny amount of free air CT brain 03/16/23: No acute intracranial process Echocardiogram: Ejection fraction 45-50% with globally reduced left ventricular systolic function, aortic sclerosis Patient seen and examined at bedside. Denies any chest pain, having some dif ficult coughing up his sputum, still not much of an appetite. Had a BM yesterday. Vital signs reviewed General: nontoxic, no distress, appears at stated age Cardiovascular: S1S2 reg, no murmur, positive posterior tibial pulse bilateral, Lungs: Decreased bs b/l bilateral, no rhonchi, no rales , no accessory muscle use Abdominal: soft, nontender to palpation, no guarding, no appreciable organo megaly Ext: no gross muscle atrophy, upper extremity edema r>L, no contractures Neuro: CN II-XI grossly intact, no focal neuro deficits Psych: Alert, oriented, appropriate affect Assessment/Plan: 67 yo Male s/p 2 stage surgery with L5-S1 ALIF and L4-S1 PLIF Severe sepsis due to MRSA pneumonia Toxic metabolic encephalopathy complicated by right upper extremity resting tremor Oral candidiasis Critical illness myopathy - pulm note reviewed: add O2 - Zyvoox 600 mg BID PO, D # 12 of MRSA coverage, but has been intermittent -Pulmonary hygiene -PM&R note reviewed: Would benefit from IPR, insurance auth current pending currently pending. - add mucinex 600 mg BID and flutter valve Non-ST elevation [place], type II Paroxysmal atrial fibrillation with RVR Cardiomyopathy, ejection fraction 45-50% HTN -Case discussed with Dr. Sanchez on 03/27 and patient would benefit from outpatient ischemic evaluation once he has recovered from surgery. -Eliquis 2.5 twice daily, aspirin 81 mg daily -Catapres patch 0.3 g every 7 days -Lopressor 100 mg twice daily Hypothyroidism -Synthroid 250 g oral Resolved: Acute hypoxic respiratory failure, s/p mechanical ventilation Postoperative ileus, resolved Imaging: right upper extremity doppler- negative for DVT Data Review: Vitals reviewed T-max the last 24 hours 99.3. Pulse 102, blood pressure 167/91, O2 sat 93% DVT prophylaxis: Eliquis Discharge: IPR once insurance auth is obtained This dictation was prepared using [employer] voice recognition software. Though every attempt is made to correct errors during dictation some may still exist. Objective - Vital Signs Vital signs: Vital Signs Temp 98.6 F 03/29/23 07:17 Pulse 98 03/29/23 11:36 Resp 20 03/29/23 07:17 BP 173/83 03/29/23 07:17 Pulse Ox 91 L 03/29/23 07:17 FiO2 35 03/23/23 08:00 Intake & Output 03/28/23 03/29/23 03/29/23 18:59 06:59 18:59 Intake Total 118 Output Total 1050 Balance -1050 118 Intake: Oral 118 Output: Urine 1050 Other: Voiding Method Urinal Diaper Urinal Diaper # Voids 1 1 # Bowel Movements 3 1 ABP, PAP, CO, CI - Last Documented Arterial Blood Pressure 200/72 - Labs CBC & Chem 7: 03/28/23 20:52 03/28/23 04:42 Labs: Abnormal Lab Results - Last 24 Hours (Table) 03/28/23 Range/Units 20:52 RBC 3.17 L (4.30-5.90) m/uL Hgb 9.8 L (13.0-17.5) gm/dL Hct 29.9 L (39.0-53.0) % RDW 15.7 H (11.5-15.5) % Lymphocytes # 0.5 L (1.0-4.8) k/uL
--- NOTE | 2023-03-29 12:36 | P.PN ---
Subjective Progress Note Date: 03/29/23 Principal diagnosis: Atrial flutter The patient is a 67-year-old gentleman who was admitted to the hospital and underwent an L5-S1 fusion complicated by ileus and subsequently we involved in the care of the patient because of paroxysmal atrial fibrillation/atrial flutter and also elevated troponin. The echo revealed mildly impaired LV function with EF around 45% was mild valvular pathology. March 232022 The patient was seen and evaluated this morning. He continues to be intubated on mechanical ventilation. He continues to be nothing by mouth. Hemodynamically he is stable. Currently he is on Cardizem IV as well as heparin IV as well as metoprolol IV. We will continue the current medical regimen until the patient is not nothing by mouth anymore then at that point we will switch the patient into oral medication. I believe coronary angiogram need to be done to rule out severe CAD 1 sedation has better recovery. Currently no indication of any hemodynamic instability. He is maintaining normal sinus mechanism. March 242022 The patient was seen and evaluated this morning. Yesterday he did have an episode of chest pressure. The EKG revealed sinus mechanism with T-wave inversion in the inferolateral leads. He continues to be nothing by mouth. H eparin was systolic yesterday because of gastrointestinal bleeding which is currently under investigation. I am going to give the patient aspirin rectally. He is on beta rubi IV. He is on Cardizem IV. He cannot be on any statin at this point. I believe that the patient need to undergo coronary angiogram once we know that he is able to take his antiplatelet orally in case he needs to undergo an angioplasty. Otherwise I would continue the current medical regimen and continue follow-up with the patient. March 252022 The patient was seen and evaluated. He is in normal sinus mechanism. He continues to be on Cardizem IV. He underwent a swallow evaluation yesterday but he felt that. For that reason we will continue the current medical regimen including the current dose of Cardizem IV. He is maintaining normal sinus mechanism. Anticoagulation on hold because of gastrointestinal bleeding. No chest pain or chest discomfort and no shortness of breath. The hemoglobin this morning is 11.1. March 262022 The patient was seen and evaluated this morning. He has been maintaining normal sinus mechanism was sinus tachycardia. He is not nothing by mouth anymore. With that being saved going to increase the dose of beta rubi. He was started on Lovenox prophylactically. We will find out if he is not at risk of any gastrointestinal bleeding to DC Lovenox and start the patient on oral anticoagulation at least at a small dose. Meanwhile on examination he seems to be a do not this and retaining fluid. I'm going to give the patient 20 mg of Lasix IV only once. Continue the rest of the current medical regimen and follow-up with the patient. March 272022 The patient was seen and evaluated this morning. He has been maintaining normal sinus rhythm and his tachycardia has a slightly improved but his resting heart rate continues to be above 100 bpm. I'm going to increase the dose of beta rubi with metoprolol. Beside that we are going to DC Lovenox and start the patient on oral anticoagulation after we had the green light from the surgical team. He reports no pain in the chest. On examination he remains a do not is mostly in the upper extremities. I'm going to give an additional dose of Lasix today and continue monitor the kidney function and electrolytes and replace his potassium. The examination is remarkable for regular rhythm with diminished breathing sounds bilaterally and no lower extremities edema noted but upper extremities edema March 282022 The patient was seen and evaluated this morning. He was transferred out of the intensive care unit yesterday and currently he is on 4 S. He is feeling overall better. He is asymptomatic. Hemodynamically he is able beside sinus tachycardia. I'm going to increase the dose of beta rubi as the blood pressure permits. Beside that he is on oral anticoagulation. On examination distal LAD that is slightly and without being saved I'm going to give the patient additional 20 mg of Lasix IV. The examination is remarkable for regular rhythm with sinus tachycardia and upper extremities edema March 292022 The patient was seen and evaluated this morning. He seems to be stable overall. Hemodynamically he is stable beside mild sinus tachycardia but lately has been experiencing fever and he was started on antibiotic. The fever could be contributing to the tachycardia. Currently he is on high dose of beta rubi. He is on oral anticoagulation as well. Because he remained congested a bite to start the patient on Lasix IV at 20 mg twice a day. The examination is remarkable for stable vital signs with regular rhythm and mild bilateral lower extremity edema and diminished breathing sounds bilaterally Assessment Status post L5 to S1 fusion Ileus Paroxysmal atrial fibrillation/flutter Acute non-ST elevation myocardial infarction Mild cardiomyopathy Plan Continue the current dose of metoprolol Start the patient on Lasix IV at 20 mg twice a day Follow-up with the patient Objective - Vital Signs Vital signs: Vital Signs Temp 98.6 F 03/29/23 07:17 Pulse 98 03/29/23 11:36 Resp 20 03/29/23 07:17 BP 173/83 03/29/23 07:17 Pulse Ox 91 L 03/29/23 07:17 FiO2 35 03/23/23 08:00 Intake & Output 03/28/23 03/29/23 03/29/23 18:59 06:59 18:59 Intake Total 118 Output Total 1050 Balance -1050 118 Intake: Oral 118 Output: Urine 1050 Other: Voiding Method Urinal Diaper Urinal Diaper # Voids 1 1 # Bowel Movements 3 1 ABP, PAP, CO, CI - Last Documented Arterial Blood Pressure 200/72 - Labs CBC & Chem 7: 03/28/23 20:52 03/28/23 04:42 Labs: Abnormal Lab Results - Last 24 Hours (Table) 03/28/23 Range/Units 20:52 RBC 3.17 L (4.30-5.90) m/uL Hgb 9.8 L (13.0-17.5) gm/dL Hct 29.9 L (39.0-53.0) % RDW 15.7 H (11.5-15.5) % Lymphocytes # 0.5 L (1.0-4.8) k/uL
[2023-03-29] MEDS: guaiFENesin 600 MG TABLET.ER PO SCH ×2 (13:19→21:55)
[2023-03-29] MEDS ORDERED: FUROSEMIDE 10 MG/ML 2 ML VIAL IV SCH (21:00)
[2023-03-29] MEDS: MELATONIN 5 MG TABLET PO SCH (21:55)
[2023-03-29] MEDS: SENNOSIDES 8.6 MG TAB PO SCH (21:56)
[2023-03-29] MEDS ORDERED: DILTIAZEM 5 MG/ML 5 ML VIAL IVP STA (22:33)
[2023-03-30] MEDS: HYDROmorphone 0.5 MG/0.5 ML SYRINGE IVP PRN ×6 (01:58→23:42)
[2023-03-30] MEDS: PANTOPRAZOLE 40 MG TABLET PO SCH (06:26)
[2023-03-30] MEDS: LEVOTHYROXINE 125 MCG TAB PO SCH (06:29)
--- NOTE | 2023-03-30 08:08 | P.PN ---
Subjective Progress Note Date: 03/29/23 Principal diagnosis: MRSA pneumonia Patient is a 67-year-old male electively admitted to the hospital 03/13/2023 in this patient who is s/p anterior lumbar interbody fusion L5-S1 insertion of interbody device with anterior approach patient did develop postop ileus and did have a new fever prompting infection disease consultation. Patient did have a worsening of his respiratory distress requiring transfer to the ICU and the patient was intubated morning of 03/20/2023 on today's evaluation that is 03/29/2023, patient did have resolution of his fever is currently breathing comfortably on 2 L nasal cannula oxygen patient denies having any chest pain no worsening cough or sputum production no nausea vomiting abdominal pain no diarrhea. Patient did have vital of 7.3 as of yesterday creatinine is 1.1 procalcitonin 0.15 CRP 8.3 0 repeat chest x-ray with retrocardiac opacity concerning for pneumonia right arm Doppler was negative for DVT. Objective - Vital Signs Vital signs: Vital Signs Temp 98.6 F 03/29/23 07:17 Pulse 98 03/29/23 11:36 Resp 20 03/29/23 07:17 BP 173/83 03/29/23 07:17 Pulse Ox 91 L 03/29/23 07:17 FiO2 35 03/23/23 08:00 Intake & Output 03/28/23 03/29/23 03/29/23 18:59 06:59 18:59 Intake Total 118 Output Total 1050 Balance -1050 118 Intake: Oral 118 Output: Urine 1050 Other: Voiding Method Urinal Diaper Urinal Diaper # Voids 1 1 # Bowel Movements 3 1 ABP, PAP, CO, CI - Last Documented Arterial Blood Pressure 200/72 - Exam GENERAL DESCRIPTION: An elderly male lying in bed in no distress RESPIRATORY SYSTEM: Unlabored breathing , decreased breath sounds at bases HEART: S1 S2 regular rate and rhythm , ABDOMEN: Soft , no tenderness EXTREMITIES: No edema feet - Labs CBC & Chem 7: 03/28/23 20:52 03/28/23 04:42 Labs: Abnormal Lab Results - Last 24 Hours (Table) 03/28/23 Range/Units 20:52 RBC 3.17 L (4.30-5.90) m/uL Hgb 9.8 L (13.0-17.5) gm/dL Hct 29.9 L (39.0-53.0) % RDW 15.7 H (11.5-15.5) % Lymphocytes # 0.5 L (1.0-4.8) k/uL Assessment and Plan (1) MRSA pneumonia Current Visit: Yes Status: Acute Code(s): J15.212 - PNEUMONIA DUE TO METHICILLIN RESISTANT STAPHYLOCOCCUS AUREUS SNOMED Code(s): 831656970999641 (2) Rash Current Visit: Yes Status: Acute Code(s): R21 - RASH AND OTHER NONSPECIFIC SKIN ERUPTION SNOMED Code(s): 248248425 Plan: 1patient with a postop fever in this patient with extensive surgery requiring anterior lumbar interbody fusion L5-S1 and insertion of interbody device developing a postop ileus now low-grade fever and tachycardia possible abdominal source however no significant tenderness was noticed on abdominal Examination,, patient did have a negative UA chest x-ray did shows mild strandy atelectasis lower lungs patient did have a CT abdominal pelvis Did show some inflammatory changes in the left lower quadrant and tiny air no mention of any abscess or perforation 2-blood culture currently pending CRP is elevated and procalcitonin is normal at 0.09 3the patient sputum cultures came back positive with MRSA which has been misla beled as gastric aspirate blood culture has been negative. 4-rash possibly drug related questionable related to Dilaudid which was discontinued and rash is better this am 5patient did have a resolution of the fever chest x-ray still showing pneumonia we will recommend getting the patient on oral Zyvox for another 7 days and monitor clinical course closely at the bedside questions concerns answered Dictation was produced using [employer] dictation software. please excuse any grammatical, word or spelling errors.
--- NOTE | 2023-03-30 08:13 | P.PN ---
Subjective Progress Note Date: 03/30/23 Principal diagnosis: L5-S1 grade 2 spondylolisthesis L4 S1 spondylosis lower extremity radiculopathy Patient seen and examined this morning. He has been transferred over the weekend from ICU to Medical/Surgical floor. Patient is resting comfortably in bed. Overall patient feels he is doing much better. Anterior abdominal and Posterior paralumbar surgical incisions are well approximated with rikki intact, no drainage. Encourage use of incentive spirometer. Patient is cleared from Orthopedic standpoint for discharge when medically stable. Patient has been accepted to inpatient rehab, awaiting insurance auth. Objective - Vital Signs Vital signs: Vital Signs Temp 98.8 F 03/30/23 00:52 Pulse 97 03/30/23 00:52 Resp 16 03/30/23 00:52 BP 150/82 03/30/23 00:52 Pulse Ox 99 03/30/23 00:52 FiO2 35 03/23/23 08:00 Intake & Output 03/29/23 03/30/23 03/30/23 18:59 06:59 18:59 Intake Total 118 Balance 118 Intake: Oral 118 Other: Voiding Method Urinal Diaper # Voids 2 1 ABP, PAP, CO, CI - Last Documented Arterial Blood Pressure 200/72 - Exam Physical Examination General: The patient is awake and alert, in no acute distress Skin: Diaphoretic. Anterior surgical incision midline lower abdomen is well approximated with glue intact. Posterior paralumbar surgical incisions are well approximated with rikki intact. Eye: Pupils are to the lower equal, round and reactive to light, extra-ocular movements are intact; there is normal conjunctiva bilaterally. Neck: The neck is supple, there is no tenderness and ROM intact. Cardiovascular: There is a regular rate and rhythm. No murmur, rub or gallop is appreciated. Respiratory: Respirations are non-labored, breath sounds are equal. Gastrointestinal: Nontender, soft Back: There is no tenderness to palpation in the midline, paralumbar, parathoracic or buttocks region. There is no obvious deformity . Musculoskeletal: ROM limited secondary to pain and stiffness from surgical procedure. Muscle strength in all major muscle groups of bilateral upper extremities 4/5, bilateral lower extremities 4-/5. Neurological: CN 2-12 intact. There are no obvious motor or sensory deficits. Movement and coordination equal and intact. Sensory exam to light touch intact C5-T1 and intact from L2-S1. Reflexes 2/4 in bilateral upper and lower extremities. Negative Hoffmans, babinski, and clonus signs. Psychiatric: Cooperative, appropriate mood & affect, normal judgment. - Labs CBC & Chem 7: 03/28/23 20:52 03/28/23 04:42 Labs: Abnormal Lab Results - Last 24 Hours (Table) 03/28/23 03/28/23 Range/Units 04:42 04:42 C-Reactive Protein 8.30 H (0.00-0.80) mg/dL Procalcitonin 0.15 H (0.02-0.09) ng/mL Assessment and Plan Assessment: Postop day 17: Part I: L5-S1 ALIF with Part II: L4-S1 posteriolateral and interbody fusion. Sepsis presentation, new Hospital-acquired pneumonia Post-Op Illeus resolving Lumbar spondylolithesis Plan: -Appreciate guidance consultant and team management. -Activity: Up to chair with all meals. Daily PT/OT -Pain control: Adequate at this time -Meds: reviewed -GI ppx: senna -DVT PPX: per medicine -Hygiene: Maintain dressing clean and dry. Meticulous cleaning after BMs away from the incision site -Dispo: Awaiting insurance auth for IPR. Patient is cleared from an Orthopedic standpoint, no further recommendations. Patient has follow-up appointment listed in discharge instructions, rikki will be removed at this visit. *I reviewed and discussed this case with my attending Dr. Villa, whom has reviewed this chart and films and is in agreement with assessment and plan of care as outlined above. I have personally seen and examined the patient, performed the documentation and the assessment and plan as written. Number of minutes spent on the visit: 20m.
[2023-03-30] MEDS: IPRATROPIUM-ALBUTEROL 3 ML NEB INHALATION SCH ×4 (09:10→20:03)
[2023-03-30] MEDS: NYSTATIN 100,000 UNIT/ML SUSP 500,000 UNIT/5 ML CUP PO SCH ×4 (09:24→20:54)
[2023-03-30] MEDS: APIXABAN 2.5 MG TABLET PO SCH ×2 (09:25→20:54)
[2023-03-30] MEDS: METOPROLOL TARTRATE 50 MG TAB PO SCH ×2 (09:25→20:53)
[2023-03-30] MEDS: LINEZOLID 600 MG TAB PO SCH ×2 (09:25→20:54)
[2023-03-30] MEDS: guaiFENesin 600 MG TABLET.ER PO SCH ×2 (09:25→20:54)
[2023-03-30] MEDS: ASPIRIN 81 MG PO SCH (09:25)
--- NOTE | 2023-03-30 09:38 | P.PN ---
Subjective Progress Note Date: 03/30/23 Atrial flutter The patient is a 67-year-old gentleman who was admitted to the hospital and underwent an L5-S1 fusion complicated by ileus and subsequently we involved in the care of the patient because of paroxysmal atrial fibrillation/atrial flutter and also elevated troponin. The echo revealed mildly impaired LV function with EF around 45% was mild valvular pathology. His stay has been complicated by ileus, pneumonia and investigation for GI bleed 03/30 Patient is now taking oral medications and clonidine patch will be discontinued. Patient appears to be dry today and IV Lasix will be discontinued. Valsartan started and can be maximized for blood pressure control. Patient states that he is going to rehab today. asset protection agent is sinus rhythm. The examination is remarkable for stable vital signs with regular rhythm and mild bilateral lower extremity edema and diminished breathing sounds bilaterally Assessment Status post L5 to S1 fusion Ileus Paroxysmal atrial fibrillation/flutter Acute non-ST elevation myocardial infarction Mild cardiomyopathy Plan Continue the current dose of metoprolol Discontinue IV Lasix as patient appears to be dry Discontinue clonidine patch as patient is not able to take oral medications and valsartan 160 mg daily will be added. May maximize valsartan by increasing to twice daily for blood pressure control if needed Follow-up with the patient Nurse practitioner note has been reviewed, I agree with the documented findings and plan of care. Patient was seen and examined. Objective - Vital Signs Vital signs: Vital Signs Temp 98.0 F 03/30/23 07:23 Pulse 86 03/30/23 09:22 Resp 19 03/30/23 07:23 BP 164/88 03/30/23 07:23 Pulse Ox 93 L 03/30/23 09:10 FiO2 21 03/30/23 09:10 Intake & Output 03/29/23 03/30/23 03/30/23 18:59 06:59 18:59 Intake Total 118 Balance 118 Intake: Oral 118 Other: Voiding Method Urinal Diaper # Voids 2 1 ABP, PAP, CO, CI - Last Documented Arterial Blood Pressure 200/72 - Labs CBC & Chem 7: 03/28/23 20:52 03/28/23 04:42 Labs: Abnormal Lab Results - Last 24 Hours (Table) 03/28/23 03/28/23 Range/Units 04:42 04:42 C-Reactive Protein 8.30 H (0.00-0.80) mg/dL Procalcitonin 0.15 H (0.02-0.09) ng/mL
[2023-03-30] MEDS: FLUTICASONE 50MCG/SPRAY NASAL 16GM EA NOSTRIL SCH (10:06)
[2023-03-30] MEDS: VALSARTAN 160 MG TAB PO SCH (10:08)
[2023-03-30 11:08] LABS: HCT 31.3 % (39.0-53.0); HGB 10.2 gm/dL (13.0-17.5); MCH 30.8 pg (25.0-35.0); MCHC 32.6 g/dL (31.0-37.0); MCV 94.6 fL (80.0-100.0); Platelet Count 354 k/uL (150-450); RBC 3.31 m/uL (4.30-5.90); RDW 15.8 % (11.5-15.5)
[2023-03-30 12:26] LABS: African American GFR (CKD) 79 (>60 ml/min/1.73 sqM); Anion Gap 8 mmol/L; Blood Urea Nitrogen 16 mg/dL (9-20); Calcium 7.7 mg/dL (8.4-10.2); Carbon Dioxide 26 mmol/L (22-30); Chloride 99 mmol/L (98-107); Glucose 152 mg/dL (74-99); Non-African American GFR(CKD) 68 (>60 ml/min/1.73 sqM); Potassium 2.8 mmol/L (3.5-5.1); Sodium 133 mmol/L (137-145)
--- NOTE | 2023-03-30 13:31 | P.PN ---
Subjective Progress Note Date: 03/30/23 Patient is a 67-year-old male with prior lymphoma s/p stem cell transplant, hypothyroidism, hypertension, and degenerative disc disease who presented for elective lumbar sacral fusion with decompression. Patient underwent 2 to stage procedure with an anterior and posterior approach on . Postoperatively the patient developed ileus, A. fib with RVR, and a non-ST segment elevated zainab cardial infarction. General surgery and cardiology were consulted. Patient had an NG tube placed for possible ileus and was started on Reglan. He began having high-grade fevers and tachycardia on 03/18 and was started on vancomycin, cefepime, and Flagyl. He was seen by infectious disease. CXR on 03/19/23 showed infiltrate b/l lower lobes and right middle lobe. due to worsening respiratory distress the patient was transferred to the ICU on 03/19/23 and subsequently required intubation on 03/20/23. He was started on TPN on 03/21/23. He did require a cardizem gtt to control his A fib. He was successfully extubated on 03/23/23. He had a sputum culture that was mislabeled as a gastric aspirate which came back with MRSA. He developed significant hypernatremia and required D5W. Patient did develop a rash and therefore vancomycin was discontinued and he was transitioned to Zyvox. He completed a total of 10 days of antibiotics. He passed a swallow study was able to eat and His bowel function had returned so TPN was discontinued. Imaging: Acute abdominal series 03/19/23: Mildly dilated small bowel loops CT abdomen and pelvis 03/19/23: Inflammatory changes in the left lower quadrant extending towards the inguinal region with tiny amount of free air CT brain 03/16/23: No acute intracranial process Echocardiogram: Ejection fraction 45-50% with globally reduced left ventricular systolic function, aortic sclerosis Patient seen and examined at bedside. Denies any chest pain, having some di fficult coughing up his sputum, still not much of an appetite. Had a BM yesterday. Vital signs reviewed General: nontoxic, no distress, appears at stated age Cardiovascular: S1S2 reg, no murmur, positive posterior tibial pulse bilateral, Lungs: Decreased bs b/l bilateral, no rhonchi, no rales , no accessory muscle use Abdominal: soft, nontender to palpation, no guarding, no appreciable organ omegaly Ext: no gross muscle atrophy, upper extremity edema r>L, no contractures Neuro: CN II-XI grossly intact, no focal neuro deficits Psych: Alert, oriented, appropriate affect Assessment/Plan: 67 yo Male s/p 2 stage surgery with L5-S1 ALIF and L4-S1 PLIF Severe sepsis due to MRSA pneumonia Toxic metabolic encephalopathy complicated by right upper extremity resting tremor Oral candidiasis Critical illness myopathy - pulm note reviewed: add O2 - Zyvoox 600 mg BID PO, D # 13 of MRSA coverage, but has been intermittent -Pulmonary hygiene -PM&R note reviewed: Would benefit from IPR, insurance auth current pending currently pending. - add mucinex 600 mg BID and flutter valve Non-ST elevation IA, type II Paroxysmal atrial fibrillation with RVR Cardiomyopathy, ejection fraction 45-50% HTN -Case discussed with Dr. Sanchez on 03/27 and patient would benefit from outpatient ischemic evaluation once he has recovered from surgery. -Eliquis 2.5 twice daily, aspirin 81 mg daily -Catapres patch 0.3 g every 7 days -Lopressor 100 mg twice daily Hypothyroidism -Synthroid 250 g oral Resolved: Acute hypoxic respiratory failure, s/p mechanical ventilation Postoperative ileus, resolved Imaging: right upper extremity doppler- negative for DVT Data Review: Vitals reviewed T-max the last 24 hours 99.3. Pulse 102, blood pressure 167/91, O2 sat 93% DVT prophylaxis: Eliquis Discharge:Discussed with insurance medical sonographer, patient is being denied for IPR stay, discussed with social work, they are appealing this decision. This dictation was prepared using [employer] voice recognition software. Though every attempt is made to correct errors during dictation some may still exist. Objective - Vital Signs Vital signs: Vital Signs Temp 98.0 F 03/30/23 07:23 Pulse 90 03/30/23 12:22 Resp 19 03/30/23 07:23 BP 164/88 03/30/23 07:23 Pulse Ox 93 L 03/30/23 09:10 FiO2 21 03/30/23 09:10 Intake & Output 03/29/23 03/30/23 03/30/23 18:59 06:59 18:59 Intake Total 118 Balance 118 Intake: Oral 118 Other: Voiding Method Urinal Diaper # Voids 2 1 ABP, PAP, CO, CI - Last Documented Arterial Blood Pressure 200/72 - Labs CBC & Chem 7: 03/30/23 10:37 03/30/23 10:37 Labs: Abnormal Lab Results - Last 24 Hours (Table) 03/28/23 03/28/23 03/30/23 Range/Units 04:42 04:42 10:37 RBC 3.31 L (4.30-5.90) m/uL Hgb 10.2 L (13.0-17.5) gm/dL Hct 31.3 L (39.0-53.0) % RDW 15.8 H (11.5-15.5) % Sodium (137-145) mmol/L Potassium (3.5-5.1) mmol/L Glucose (74-99) mg/dL Calcium (8.4-10.2) mg/dL C-Reactive Protein 8.30 H (0.00-0.80) mg/dL Procalcitonin 0.15 H (0.02-0.09) ng/mL 03/30/23 Range/Units 10:37 RBC (4.30-5.90) m/uL Hgb (13.0-17.5) gm/dL Hct (39.0-53.0) % RDW (11.5-15.5) % Sodium 133 L (137-145) mmol/L Potassium 2.8 L (3.5-5.1) mmol/L Glucose 152 H (74-99) mg/dL Calcium 7.7 L (8.4-10.2) mg/dL C-Reactive Protein (0.00-0.80) mg/dL Procalcitonin (0.02-0.09) ng/mL Microbiology - Last 24 Hours (Table) 03/28/23 20:52 Blood Culture - Preliminary Blood
--- NOTE | 2023-03-30 13:45 | P.PN ---
Subjective Progress Note Date: 03/30/23 Patient is a 67-year-old male who was admitted to [facility] on 03/13/23 for elective lumbar fusion L5-S1 with . Hosp course was c/b ileus on 03/15/2023 and he developed A. fib with RVR and also found to have non-ST elevation OH. Gen. surgery and cardiology were consulted on the patient. The patient had NG tube placed for ileus and was started on Reglan 10 mg every 6 hours. Patient was having high-grade fevers and tachycardia on 03/18 was started on IV Abx. chest x-ray on 03/19/2023 showed infiltrates involving the left lower lobe; status worsened and he required intubation on 03/20 and extubated 03/23. Methicillin-resistant staph aureus was noted in the sputum. Currently of of abx. At baseline he lives home with his in a 2 story home with 5 GAGAN (right hand rail) and 12 stairs inside. Bed and bath are upstairs. He was previously independent. He was driving. He is a retired school bus driver. He lives at home with his and son who are both available for support. He is significantly below baseline and extremely motivated to return home. 03/30/23: Patient was denies IRP after peer to peer. Fast appeal submitted on the patients behalf. Spoke to patient with at bedside, answer expected in 24-48 hours. Patient denies CP, SOB and abdominal pain. He does c/o continued incis ional pain. Patient reports that he is eating okay. LBM 03/29. Urinating well. Reports incontinence of bowel and bladder since surgery. Patient and both wanting patient to come to [facility] for therapy. Patient denies other concerns at this time. Objective - Vital Signs Vital signs: Vital Signs Temp 98.0 F 03/30/23 07:23 Pulse 90 03/30/23 12:22 Resp 19 03/30/23 07:23 BP 164/88 03/30/23 07:23 Pulse Ox 93 L 03/30/23 09:10 FiO2 21 03/30/23 09:10 Intake & Output 03/29/23 03/30/23 03/30/23 18:59 06:59 18:59 Intake Total 118 Balance 118 Intake: Oral 118 Other: Voiding Method Urinal Diaper # Voids 2 1 ABP, PAP, CO, CI - Last Documented Arterial Blood Pressure 200/72 - Exam PHYSICAL EXAM General: Sitting in chair with at bedside, no acute distress, fatigued HEENT: NC/AT, external ears intact, hearing intact to conversational speech, neck supple Cardiovascular: B/L calves are supple, nontender, no cords, +edema in b/l upper and lower ext Respiratory: on RA, sometimes conversationally dyspneic Abdomen: Soft, nontender, nondistended : no bladder tenderness Skin: Skin intact where visible to head, neck, and bilateral upper and lower extremities except back and abdominal incision, not visualized Musculoskeletal: ROM WFL EXCEPT: MMT LUE: Sh Abd 3/5, EE 4/5, EF 5/5, HG 4/5 MMT RUE: Sh Abd 3/5, EE 4/5, EF 5/5, HG 4/5 MMT LLE: HF 3/5, KE 4+/5, DF 3/5 MMT RLE: HF 3/5, KE 4+/5, DF 4-/5 Neurological: Alert and oriented x 3 Speech is clear, content fluent Psych: appropriate mood and affect - Labs CBC & Chem 7: 03/30/23 10:37 03/30/23 10:37 Labs: Abnormal Lab Results - Last 24 Hours (Table) 03/28/23 03/28/23 03/30/23 Range/Units 04:42 04:42 10:37 RBC 3.31 L (4.30-5.90) m/uL Hgb 10.2 L (13.0-17.5) gm/dL Hct 31.3 L (39.0-53.0) % RDW 15.8 H (11.5-15.5) % Sodium (137-145) mmol/L Potassium (3.5-5.1) mmol/L Glucose (74-99) mg/dL Calcium (8.4-10.2) mg/dL C-Reactive Protein 8.30 H (0.00-0.80) mg/dL Procalcitonin 0.15 H (0.02-0.09) ng/mL 03/30/23 Range/Units 10:37 RBC (4.30-5.90) m/uL Hgb (13.0-17.5) gm/dL Hct (39.0-53.0) % RDW (11.5-15.5) % Sodium 133 L (137-145) mmol/L Potassium 2.8 L (3.5-5.1) mmol/L Glucose 152 H (74-99) mg/dL Calcium 7.7 L (8.4-10.2) mg/dL C-Reactive Protein (0.00-0.80) mg/dL Procalcitonin (0.02-0.09) ng/mL Microbiology - Last 24 Hours (Table) 03/28/23 20:52 Blood Culture - Preliminary Blood Assessment and Plan Assessment: # Critical illness myopathy -Structured rehabilitation is warranted due to multiple medical comorbidities and physical limitations as documented above. Therapies and services include physical therapy, occupational therapy, speech therapy, rehabilitation nursing, psychology, nutrition/water rights specialist and criminal justice social worker. Based on the initial assessment, the patient appears to be willing to participate and be able to tolerate skilled therapy in an acute rehab setting (3 hrs/day x 6 days / week) #toxic metabolic encephalopathy, improving #Sepsis likely from abdominal source- 10 course of linezolid per ID #Acute hypoxic respiratory failure secondary to pneumonia, possible ARDS -03/30/23: extubated 03/23 #ileus #Hx lymphoma and previous stem cell transplant. #Status post elective lumbosacral fusion and decompression 03/13/2023. #A fib with RVR # Bowel/ Bladder: Nursing to monitor and report concerns if any. -continue current management # Skin/wound: Skin/Wound care to follow as needed # Pain Management -acetaminophen 650 mg q6h prn # DVT Prophylaxis- SC lovenox 40 mg # CoMorbidities: hx lymphoma, hypothyroidism # Your medical dx and mgt Recommendations: Patient would benefit from skilled therapy in an acute inpatient rehab setting. He has good family support, is significantly below baseline, has multiple medical co morbidities that need close monitoring, and is very motivated to return home. -03/30/23: Patient was denied IPR after peer to peer. fast appeal was filed on behalf of the patient. Discussed with patient and at bedside, should have an answer in 24-48 hours
[2023-03-30] MEDS ORDERED: FLUCONAZOLE 100 MG TAB PO ONE (15:10)
--- NOTE | 2023-03-30 15:14 | P.PN ---
Subjective Progress Note Date: 03/30/23 Principal diagnosis: MRSA pneumonia Patient is a 67-year-old male electively admitted to the hospital 03/13/2023 in this patient who is s/p anterior lumbar interbody fusion L5-S1 insertion of interbody device with anterior approach patient did develop postop ileus and did have a new fever prompting infection disease consultation. Patient did have a worsening of his respiratory distress requiring transfer to the ICU and the patient was intubated morning of 03/20/2023 On today's visit that is 03/30/2023, the patient remains to be afebrile, the patient is breathing comfortably on room air. Denies having any chest pain or any worsening cough has been completed, mostly sore throat from the thrush no nausea no vomiting no abdominal pain no diarrhea. Patient did have a white count of 8.0 hemoglobin is 10.2 creatinine is 1.10 Objective - Vital Signs Vital signs: Vital Signs Temp 98.0 F 03/30/23 07:23 Pulse 90 03/30/23 12:22 Resp 19 03/30/23 07:23 BP 164/88 03/30/23 07:23 Pulse Ox 93 L 03/30/23 09:10 FiO2 21 03/30/23 09:10 Intake & Output 03/29/23 03/30/23 03/30/23 18:59 06:59 18:59 Intake Total 118 Balance 118 Weight 109.9 kg Intake: Oral 118 Other: Voiding Method Urinal Diaper # Voids 2 1 ABP, PAP, CO, CI - Last Documented Arterial Blood Pressure 200/72 - Exam GENERAL DESCRIPTION: An elderly male lying in bed in no distress RESPIRATORY SYSTEM: Unlabored breathing , decreased breath sounds at bases HEART: S1 S2 regular rate and rhythm , ABDOMEN: Soft , no tenderness EXTREMITIES: No edema feet - Labs CBC & Chem 7: 03/30/23 10:37 03/30/23 10:37 Labs: Abnormal Lab Results - Last 24 Hours (Table) 03/28/23 03/28/23 03/30/23 Range/Units 04:42 04:42 10:37 RBC 3.31 L (4.30-5.90) m/uL Hgb 10.2 L (13.0-17.5) gm/dL Hct 31.3 L (39.0-53.0) % RDW 15.8 H (11.5-15.5) % Sodium (137-145) mmol/L Potassium (3.5-5.1) mmol/L Glucose (74-99) mg/dL Calcium (8.4-10.2) mg/dL C-Reactive Protein 8.30 H (0.00-0.80) mg/dL Procalcitonin 0.15 H (0.02-0.09) ng/mL 03/30/23 Range/Units 10:37 RBC (4.30-5.90) m/uL Hgb (13.0-17.5) gm/dL Hct (39.0-53.0) % RDW (11.5-15.5) % Sodium 133 L (137-145) mmol/L Potassium 2.8 L (3.5-5.1) mmol/L Glucose 152 H (74-99) mg/dL Calcium 7.7 L (8.4-10.2) mg/dL C-Reactive Protein (0.00-0.80) mg/dL Procalcitonin (0.02-0.09) ng/mL Microbiology - Last 24 Hours (Table) 03/28/23 20:52 Blood Culture - Preliminary Blood Assessment and Plan (1) MRSA pneumonia Current Visit: Yes Status: Acute Code(s): J15.212 - PNEUMONIA DUE TO METHICILLIN RESISTANT STAPHYLOCOCCUS AUREUS SNOMED Code(s): 563546838912061 (2) Rash Current Visit: Yes Status: Acute Code(s): R21 - RASH AND OTHER NONSPECIFIC SKIN ERUPTION SNOMED Code(s): 421755310 (3) Thrush Current Visit: Yes Status: Acute Code(s): B37.0 - CANDIDAL STOMATITIS SNOMED Code(s): 03258530 Plan: 1patient with a postop fever in this patient with extensive surgery requiring anterior lumbar interbody fusion L5-S1 and insertion of interbody device developing a postop ileus now low-grade fever and tachycardia possible abdominal source however no significant tenderness was noticed on abdominal Examination,, patient did have a negative UA chest x-ray did shows mild strandy atelectasis lower lungs patient did have a CT abdominal pelvis Did show some inflammatory changes in the left lower quadrant and tiny air no mention of any abscess or perforation 2-blood culture has been negative, CRP is elevated and procalcitonin is normal at 0.09 3the patient sputum cultures came back positive with MRSA which has been mislabeled as gastric aspirate blood culture has been negative. 4-rash possibly drug related questionable related to Dilaudid which was discontinued and rash seemed to be resolving 5patient did have a resolution of the fever chest x-ray still showing pneumonia to continue with zyvox and monitor clinical course closely 6-extensive thrush to continue with the nystatin swish and swallow will add oral Diflucan and see clinical response Dictation was produced using [employer] dictation software. please excuse any grammatical, word or spelling errors. Time with Patient: Less than 30
--- NOTE | 2023-03-30 16:56 | P.PN ---
Subjective Progress Note Date: 03/30/23 This is a 67-year-old white male, known to have history of lymphoma with stem cell transplant, initially admitted on 03/2023. Patient was admitted with lower extremities numbness and low back pain, underwent anterior retroperitoneal exposure performed by Dr. beckford,, he also underwent anterior lumbar interbody fusion L5-S1 insertion of interbody device, posterior lateral and interbody fusion L4-L5, posterior lateral instrumented fusion L5-S1, laminoforaminotomy for decompression and cage placement L4-L5, use of [employer] navigation for screw placement. His immediate postoperative course was uneventful, on 03/15/2023, patient was seen by cardiology for him than as stated the elevated myocardial i nfarction and he was seen by many other consultants including general surgery for small bowel obstruction/ileus. Cardiology recommended heparin, and general surgery recommended treatment with the Reglan and simethicone. Over the last 1 week, patient has been gradually getting worse, and he has been developing over the last 2 days worsening shortness of breath. Patient was placed on multiple antibiotics, broad-spectrum antibiotics after he was seen by infectious disease on 03/18/2023, patient was treated for presumptive abdominal sepsis and possible pneumonia. Cultures have been negative/mostly blood cultures and no other cultures were sent. Patient has been receiving cefepime, vancomycin, and Flagyl. Chest x-ray on 03/18/2023 showed minimal basilar atelectasis is no clear- cut evidence of infiltrate however chest x-ray on 03/19/2023 showed infiltrates involving the left lower lobe, left midlung, and the right lower lobe. Clearly the patient developed significant airspace disease while inpatient. While on the medical floor, patient was complaining of abdominal pain and distention, CT abdomen done yesterday showed inflammatory changes in the left lower quadrant extending towards the inguinal region and small tiny amount of free air which was evaluated by general surgery and felt this is most likely related to his recent retroperitoneal approach/surgery. Yesterday I was notified about this patient having worsening shortness of breath, hypoxia, tachycardia, and hypertension. I recommended transferring the patient to the ICU and a few hours after he was in the ICU, he continued to do poorly early this morning the patient had to be intubated and placed on mechanical ventilation. He is now on tidal volume of 500 assist control rate 20 FiO2 50% and PEEP of 5. ABG post int ubation showed a pO2 of 231 pCO2 42 pH of 7.38. Hence FiO2 was cut down to 50%. WBC count is 12.8 hemoglobin is 11.1, basic metabolic profile is normal except for potassium of 3.4 BUN is 22 creatinine 1.11. Chest x-ray clearly shows bilateral air space disease consistent with pneumonia or possibly ARDS patient is now on propofol at 45 mcg/kg/m his IV fluid is a 100 mL an hour in the form of 0.9 normal saline, his also on Cardizem drip. Patient was reevaluated today on 03/21/2023, remains in the ICU intubated and mechanically ventilated. He is on assist control rate of 20 tidal volume 500 F iO2 50% and PEEP of 5. His ABG showed a pO2 of 100 pCO2 36 pH of 7.46, FiO2 was cut down to 45%. Patient remains on Cardizem drip at 10 mg per hour and I cut it down to 5 he is on propofol at 45 mcg/kg/m he is also on heparin as per cardiology. Antibiotics moreno patient is receiving vancomycin and Flagyl. TPN to be started today, and again I will cut down his Cardizem to 5 mg per hour. On lower sedation, the patient seems to be comprehending, and he follows simple instructions. Chest x-ray continues to show significant infiltrate in the left lower lobe and right lower lobe, hence I don't believe the patient is quite ready for weaning and extubation at this point in time. WBC count is 12.4 hemoglobin is 10.6, PTT is 88. Electronic for normal renal profile is normal blood sugar is 163 Reevaluated today on 03/22/2023, patient remains in the ICU intubated and mechanically ventilated sedated on propofol at 40 mcg/kg/m remains on Cardizem at 5 mg per hour remains on heparin as per cardiology. He is on assist control rate of 20, tidal volume 500 FiO2 40% PEEP of 5. ABG showed a pO2 of 103 pCO2 36 pH of 7.46, hence I cut down the FiO2 to 35%. Patient is also on TPN at 50 mL per hour. His chest x-ray is showing slight improvement in his infiltrate nonetheless continues to have significant consolidation in the left lower lobe, his right-sided pneumonia seems to be improving. Today the plan is to start addressing her mental status off sedation and decide whether the patient could be considered for weaning in the next 24 hours. Sedation holiday will be given today, and only assessment of mental status to be done today. WBC count remains at the time at 14.4 hemoglobin is 10.6 PTT is 53. Electrolytes are normal except for slightly elevated sodium of 146 and the rest of the labs are unremarkable. Progress note dated 03/23/2023. 67-year-old male who was admitted back on March 13. The patient is currently in the intensive care unit, being admitted there on March 19, and intubated on March 20. He remains on the mechanical ventilator. The patient is on volume a ssist control, rate 20, tidal volume 500, FiO2 35%, with a PEEP of 5. Blood gases show pO2 of 105, pCO2 34, and pH is 7.4. The patient is currently on saline at 20 mL an hour, a Cardizem drip at 5 mg an hour, peripheral parenteral nutrition at 40 mL an hour, and heparin via weightbase protocol. White count is 13.1, hemoglobin 10.5, hematocrit 33.2, and a platelet count 264,000. Sodium 147, potassium 4.1, chlorides 119, CO2 22, anion gap 6, BUN 41, and creatinine 1.02. Blood cultures have been negative. Gastric aspirate was positive for staph aureus. Chest x-ray shows stable bilateral consolidations and small effusions. Progress note dated 03/24/2023. 67-year-old male was admitted back on March 13. The patient is in the intensive care unit, and has been here since March 19. He was intubated the following day on March 20. Yesterday, his weaning parameters were excellent, and he was successfully extubated. He is currently on 2 L of oxygen by nasal cannula. He is getting Cardizem drip at 10 mg an hour, and TPN at 40 mL an hour. He's currently on D5 half-normal saline at 75 mL an hour, which will be converted D5W at 75 mL an hour. The patient failed his bedside swallow evaluation. White count of 17, hemoglobin 11.1, hematocrit 36.3, and platelet count 259,000. Sodi um 151, potassium 4.3, chlorides 119, CO2 22, anion gap 10, BUN 39, and creatinine 0.98. Troponins were 0.443 and 0.445. From 811, the gastric aspirate Gram stain was positive for methicillin-resistant staph aureus. The patient's chest x-ray shows bilateral infiltrates, and small effusion, and is stable. Progress note dated 03/25/2023. 67-year-old male admitted back on March 13, and, has been in the intensive care unit, since March 19. He was intubated for respiratory failure on March 20, and, was successfully extubated on March 23. Currently, the patient is on room air. He's getting Cardizem at 10 mg an hour, and TPN at 40 mL an hour. He is getting D5W at 75 mL an hour, because of hypernatremia and hyperchloremia. Because of a rash, we'll discontinue vancomycin, and start him on Zyvox, 600 mg twice a day. White count 15, hemoglobin 11.1, hematocrit 34.8, and platelet count is 233,000. Sodium 148, potassium 4.2, chlorides 121, CO2 20, BUN 29, creatinine 0.95. Methicillin-resistant staph aureus was noted in the sputum, dated March 20. No follow-up chest x-ray today. Progress note dated 03/26/2023. 67-year-old male who was admitted on March 13, and is been in the intensive care unit since March 19. He was intubated for respiratory failure on March 20, and was extubated on March 23. Currently, he's on room air. He is getting D5W at 75 mL an hour. He is eating. He did pass a swallow evaluation. White count 12.4, he will become 0.3, hematocrit 32.3, and platelet count 214,000. Sodium 140, potassium 3.1, chlorides 111, CO2 25, BUN 23, creatinine 0.98. Sputum had evidence of methicillin-resistant staph aureus. Chest x-ray shows a stable if lower lobe infiltrate. Progress note dated 03/27/2023. The patient is again seen in room 255. He's currently on room air. He is getting saline at KVO. The patient's Zyvox will be discontinued. The patient will continue on nystatin swish and swallow for oropharyngeal candidiasis. We'll DC updrafts. The patient could be considered for transfer to the general medical floor. Currently labs include a white count 9.1, hemoglobin 9.2, hematocrit 28.2, and a normal platelet count. Sodium 135, potassium 3.2, chlorides 108, CO2 21, BUN 22, and creatinine 1.05. Sputum reese stain from March 20 was positive for methicillin-resistant staph aureus. Treated adequately with vancomycin and Zyvox. No chest x-ray today. Progress note dated 03/29/2023. The patient is seen today in room 462. The patient's on room air. He is getting saline at 10 mL an hour. He complains about being short of breath and so I ask his nurse to place him on oxygen, by nasal cannula at 2 L. The patient continues on Zyvox. No new labs today. Labs from March 28 have been reviewed. Chest x-ray continues to show a retrocardiac opacity. Right arm, negative for DVT. On today's evaluation of a 2022, the patient is being seen for a follow-up. The patient is weak and he is quite debilitated due to his prolonged hospitalization. Nevertheless, his condition is stable. Is currently on room air oxygen. No signs of any respiratory distress at this point in time. The patient was intubated and extubated on 03/23/2023 and he was treated for an MRSA pneumonia. The patient currently is stable and hemodynamically stable. He is started on Zyvox 600 mg by mouth twice a day. He is on bronchodilators around the clock and is also using the incentive spirometer. His blood work from today shows a white cell count of 8 with a hemoglobin of 10.2 and a platelet count of 354. Potassium levels at 2. at least to be replaced. BUN is at 60 with a creatinine of 1.1. Most recent pro-calcitonin level from 03/28/2023 was 0.15. The chest x-ray showed a retrocardiac opacity on 03/28/2023. The patient is free of any chest pain. He has mild systolic heart failure with an ejection fraction of 45-50%. The patient is going to undergo an outpatient cardiac workup regarding underlying coronary artery disease. He remains on metoprolol. He remains on long-term antibiotic coagulation with Eliquis. Mental status is adequate. Overall, quite debilitated and weak and may benefit from rehabilitation. He does have a right upper extremity Doppler of the skin back negative for DVT. Objective - Vital Signs Vital signs: Vital Signs Temp 98.0 F 03/30/23 07:23 Pulse 86 03/30/23 09:22 Resp 19 03/30/23 07:23 BP 164/88 03/30/23 07:23 Pulse Ox 93 L 03/30/23 09:10 FiO2 21 03/30/23 09:10 Intake & Output 03/29/23 03/30/23 03/30/23 18:59 06:59 18:59 Intake Total 118 Balance 118 Intake: Oral 118 Other: Voiding Method Urinal Diaper # Voids 2 1 ABP, PAP, CO, CI - Last Documented Arterial Blood Pressure 200/72 - Exam No acute distress, awake, alert, on room air. Room air saturations are 95 %. HEENT examination is grossly unremarkable. Neck supple. Full range of motion. No adenopathy thyromegaly or neck vein distention. Cardiovascular examination reveals regular rhythm rate. S1-S2 normal. No S3 or S4. No discernible murmur noted. Heart sounds are distant. Lungs reveal scattered bilateral rhonchi. No wheezes or crackles. Breath sounds are equal bilaterally. Abdomen soft with bowel sounds. No masses or tenderness. Extremities are intact. No cyanosis clubbing or edema. Skin reveals a macular papular erythematous rash, which is improved. Neurologic examination is brief but nonfocal. - Labs CBC & Chem 7: 03/30/23 10:37 03/30/23 10:37 Labs: Abnormal Lab Results - Last 24 Hours (Table) 03/28/23 03/28/23 03/30/23 Range/Units 04:42 04:42 10:37 RBC 3.31 L (4.30-5.90) m/uL Hgb 10.2 L (13.0-17.5) gm/dL Hct 31.3 L (39.0-53.0) % RDW 15.8 H (11.5-15.5) % C-Reactive Protein 8.30 H (0.00-0.80) mg/dL Procalcitonin 0.15 H (0.02-0.09) ng/mL Assessment and Plan Plan: Acute hypoxemic respiratory failure, secondary to hospital-acquired pneumonia, S/P intubation and mechanical ventilation, on 03/20/2023, with successful extubation on 03/23/2023. The patient is currently on room air oxygen. No significant respiratory distress. Using the incentive spirometer. Methicillin-resistant staph aureus pneumonia/tracheobronchitis. The most recent chest x-ray from 03/28/2023 showed a retrocardiac opacity on the left and the patient is completing course of Zyvox. The patient is breathing comfortably. The patient is currently on room air oxygen. No significant leukocytosis. Acute abdominal pain, with small bowel obstruction/ileus, recovered Acute sepsis, likely related to underlying pneumonia, recovered Recent elective lumbosacral fusion, and decompression, March 2023, with a complicated postoperative course. Acute metabolic encephalopathy. History of lymphoma, S/P stem cell transplant. Acute non-ST segment elevation myocardial infarction. I'll patient workup to be done at the later stage regarding possibility of an underlying ischemic heart disease. Paroxysmal atrial fibrillation, currently under evaluation with Ronnie Plan: Continue and complete the antibiotic course The patient is currently on Zyvox The patient has oropharyngeal candidiasis and the patient was given oral Diflucan in addition to a statin to swish and swallow The patient is quite weak and debilitated and the patient would benefit from inpatient rehabilitation and physical therapy. No other active issues for now Continue nystatin and Diflucan Complete the course of Zyvox Adequate pulmonary toileting We'll continue to follow
[2023-03-30] MEDS: ONDANSETRON 4 MG/2 ML VIAL IVP PRN (18:00)
[2023-03-30] MEDS: diphenhydrAMINE ELIXIR 25 MG/10 ML CUP PO SCH (20:42)
[2023-03-30] MEDS: POTASSIUM CHLORIDE ER 20 MEQ TAB.ER PO SCH ×3 (20:53→23:44)
[2023-03-30] MEDS: MELATONIN 5 MG TABLET PO SCH (20:54)
[2023-03-30] MEDS: SENNOSIDES 8.6 MG TAB PO SCH (20:54)
[2023-03-31] MEDS: hydrALAZINE HCL 20 MG/ML 1 ML VIAL IVP PRN (00:06)
[2023-03-31] MEDS: HYDROmorphone 0.5 MG/0.5 ML SYRINGE IVP PRN ×3 (03:13→12:13)
[2023-03-31] MEDS: POTASSIUM CHLORIDE ER 20 MEQ TAB.ER PO SCH ×5 (04:08→14:44)
[2023-03-31] MEDS: PANTOPRAZOLE 40 MG TABLET PO SCH (06:48)
[2023-03-31] MEDS: LEVOTHYROXINE 125 MCG TAB PO SCH (06:48)
[2023-03-31] MEDS: IPRATROPIUM-ALBUTEROL 3 ML NEB INHALATION SCH ×3 (07:54→15:08)
[2023-03-31] MEDS: LINEZOLID 600 MG TAB PO SCH (08:05)
[2023-03-31] MEDS: VALSARTAN 160 MG TAB PO SCH (08:05)
[2023-03-31] MEDS: ASPIRIN 81 MG PO SCH (08:06)
[2023-03-31] MEDS: FLUTICASONE 50MCG/SPRAY NASAL 16GM EA NOSTRIL SCH (08:06)
[2023-03-31] MEDS: NYSTATIN 100,000 UNIT/ML SUSP 500,000 UNIT/5 ML CUP PO SCH ×2 (08:06→12:13)
[2023-03-31] MEDS: guaiFENesin 600 MG TABLET.ER PO SCH (08:06)
[2023-03-31] MEDS: METOPROLOL TARTRATE 50 MG TAB PO SCH (08:06)
[2023-03-31] MEDS: APIXABAN 2.5 MG TABLET PO SCH (08:06)
[2023-03-31 08:30] VITALS: TEMP 97.7
[2023-03-31 10:35] LABS: Potassium 3.3 mmol/L (3.5-5.1)
--- NOTE | 2023-03-31 11:09 | P.PN ---
Subjective Progress Note Date: 03/31/23 Patient is a 67-year-old male with prior lymphoma s/p stem cell transplant, hypothyroidism, hypertension, and degenerative disc disease who presented for elective lumbar sacral fusion with decompression. Patient underwent 2 to stage procedure with an anterior and posterior approach on . Postoperatively the patient developed ileus, A. fib with RVR, and a non-ST segment elevated zainab cardial infarction. General surgery and cardiology were consulted. Patient had an NG tube placed for possible ileus and was started on Reglan. He began having high-grade fevers and tachycardia on 03/18 and was started on vancomycin, cefepime, and Flagyl. He was seen by infectious disease. CXR on 03/19/23 showed infiltrate b/l lower lobes and right middle lobe. due to worsening respiratory distress the patient was transferred to the ICU on 03/19/23 and subsequently required intubation on 03/20/23. He was started on TPN on 03/21/23. He did require a cardizem gtt to control his A fib. He was successfully extubated on 03/23/23. He had a sputum culture that was mislabeled as a gastric aspirate which came back with MRSA. He developed significant hypernatremia and required D5W. Patient did develop a rash and therefore vancomycin was discontinued and he was transitioned to Zyvox. He completed a total of 10 days of antibiotics. He passed a swallow study was able to eat and His bowel function had returned so TPN was discontinued. Imaging: Acute abdominal series 03/19/23: Mildly dilated small bowel loops CT abdomen and pelvis 03/19/23: Inflammatory changes in the left lower quadrant extending towards the inguinal region with tiny amount of free air CT brain 03/16/23: No acute intracranial process Echocardiogram: Ejection fraction 45-50% with globally reduced left ventricular systolic function, aortic sclerosis Patient seen and examined at bedside. Has no new complaints today. Vital signs reviewed General: nontoxic, no distress, appears at stated age Cardiovascular: S1S2 reg, no murmur, positive posterior tibial pulse bilateral, Lungs: Decreased bs b/l bilateral, no rhonchi, no rales , no accessory muscle use Abdominal: soft, nontender to palpation, no guarding, no appreciable organomegaly Ext: no gross muscle atrophy, upper extremity edema r>L, no contractures Neuro: CN II-XI grossly intact, no focal neuro deficits Psych: Alert, oriented, appropriate affect Assessment/Plan: 67 yo Male s/p 2 stage surgery with L5-S1 ALIF and L4-S1 PLIF Severe sepsis due to MRSA pneumonia Toxic metabolic encephalopathy complicated by right upper extremity resting tremor Oral candidiasis Critical illness myopathy - pulm note reviewed: add O2 - Zyvoox 600 mg BID PO, D # 13 of MRSA coverage, but has been intermittent -Pulmonary hygiene -PM&R note reviewed: Would benefit from IPR, insurance auth current pending currently pending. - add mucinex 600 mg BID and flutter valve Non-ST elevation WA, type II Paroxysmal atrial fibrillation with RVR Cardiomyopathy, ejection fraction 45-50% HTN -Case discussed with Dr. Sanchez on 03/27 and patient would benefit from outpatient ischemic evaluation once he has recovered from surgery. -Eliquis 2.5 twice daily, aspirin 81 mg daily -Catapres patch 0.3 g every 7 days -Lopressor 100 mg twice daily Hypothyroidism -Synthroid 250 g oral Resolved: Acute hypoxic respiratory failure, s/p mechanical ventilation Postoperative ileus, resolved Imaging: right upper extremity doppler- negative for DVT Data Review: Vitals reviewed T-max the last 24 hours 99.3. Pulse 102, blood pressure 167/91, O2 sat 93% DVT prophylaxis: Eliquis Discharge:Discussed with insurance medical dosimetrist, patient is being denied for IPR stay, discussed with social work, they are appealing this decision. This dictation was prepared using [employer] voice recognition software. Though every attempt is made to correct errors during dictation some may still exist. Objective - Vital Signs Vital signs: Vital Signs Temp 97.7 F 03/31/23 07:29 Pulse 75 03/31/23 08:07 Resp 18 03/31/23 07:29 BP 171/93 03/31/23 07:29 Pulse Ox 96 03/31/23 07:54 FiO2 21 03/31/23 07:54 Intake & Output 03/30/23 03/31/23 03/31/23 18:59 06:59 18:59 Weight 109.9 kg Other: Voiding Method Urinal Urinal Diaper Diaper # Voids 2 ABP, PAP, CO, CI - Last Documented Arterial Blood Pressure 200/72 - Labs CBC & Chem 7: 03/30/23 10:37 03/31/23 09:57 Labs: Abnormal Lab Results - Last 24 Hours (Table) 03/30/23 03/30/23 03/31/23 Range/Units 10:37 10:37 03:02 RBC 3.31 L (4.30-5.90) m/uL Hgb 10.2 L (13.0-17.5) gm/dL Hct 31.3 L (39.0-53.0) % RDW 15.8 H (11.5-15.5) % Sodium 133 L (137-145) mmol/L Potassium 2.8 L 2.9 L (3.5-5.1) mmol/L Glucose 152 H (74-99) mg/dL Calcium 7.7 L (8.4-10.2) mg/dL 03/31/23 Range/Units 09:57 RBC (4.30-5.90) m/uL Hgb (13.0-17.5) gm/dL Hct (39.0-53.0) % RDW (11.5-15.5) % Sodium (137-145) mmol/L Potassium 3.3 L (3.5-5.1) mmol/L Glucose (74-99) mg/dL Calcium (8.4-10.2) mg/dL Microbiology - Last 24 Hours (Table) 03/28/23 20:52 Blood Culture - Preliminary Blood
[2023-03-31] MEDS: ONDANSETRON 4 MG/2 ML VIAL IVP PRN (11:18)
--- NOTE | 2023-03-31 12:45 | P.PN ---
Subjective Progress Note Date: 03/31/23 This is a 67-year-old white male, known to have history of lymphoma with stem cell transplant, initially admitted on 03/2023. Patient was admitted with lower extremities numbness and low back pain, underwent anterior retroperitoneal exposure performed by Dr. beckford,, he also underwent anterior lumbar interbody fusion L5-S1 insertion of interbody device, posterior lateral and interbody fusion L4-L5, posterior lateral instrumented fusion L5-S1, laminoforaminotomy for decompression and cage placement L4-L5, use of Moobia navigation for screw placement. His immediate postoperative course was uneventful, on 03/15/2023, patient was seen by cardiology for him than as stated the elevated myocardial i nfarction and he was seen by many other consultants including general surgery for small bowel obstruction/ileus. Cardiology recommended heparin, and general surgery recommended treatment with the Reglan and simethicone. Over the last 1 week, patient has been gradually getting worse, and he has been developing over the last 2 days worsening shortness of breath. Patient was placed on multiple antibiotics, broad-spectrum antibiotics after he was seen by infectious disease on 03/18/2023, patient was treated for presumptive abdominal sepsis and possible pneumonia. Cultures have been negative/mostly blood cultures and no other cultures were sent. Patient has been receiving cefepime, vancomycin, and Flagyl. Chest x-ray on 03/18/2023 showed minimal basilar atelectasis is no clear- cut evidence of infiltrate however chest x-ray on 03/19/2023 showed infiltrates involving the left lower lobe, left midlung, and the right lower lobe. Clearly the patient developed significant airspace disease while inpatient. While on the medical floor, patient was complaining of abdominal pain and distention, CT abdomen done yesterday showed inflammatory changes in the left lower quadrant extending towards the inguinal region and small tiny amount of free air which was evaluated by general surgery and felt this is most likely related to his recent retroperitoneal approach/surgery. Yesterday I was notified about this patient having worsening shortness of breath, hypoxia, tachycardia, and hypertension. I recommended transferring the patient to the ICU and a few hours after he was in the ICU, he continued to do poorly early this morning the patient had to be intubated and placed on mechanical ventilation. He is now on tidal volume of 500 assist control rate 20 FiO2 50% and PEEP of 5. ABG post int ubation showed a pO2 of 231 pCO2 42 pH of 7.38. Hence FiO2 was cut down to 50%. WBC count is 12.8 hemoglobin is 11.1, basic metabolic profile is normal except for potassium of 3.4 BUN is 22 creatinine 1.11. Chest x-ray clearly shows bilateral air space disease consistent with pneumonia or possibly ARDS patient is now on propofol at 45 mcg/kg/m his IV fluid is a 100 mL an hour in the form of 0.9 normal saline, his also on Cardizem drip. Patient was reevaluated today on 03/21/2023, remains in the ICU intubated and mechanically ventilated. He is on assist control rate of 20 tidal volume 500 F iO2 50% and PEEP of 5. His ABG showed a pO2 of 100 pCO2 36 pH of 7.46, FiO2 was cut down to 45%. Patient remains on Cardizem drip at 10 mg per hour and I cut it down to 5 he is on propofol at 45 mcg/kg/m he is also on heparin as per cardiology. Antibiotics moreno patient is receiving vancomycin and Flagyl. TPN to be started today, and again I will cut down his Cardizem to 5 mg per hour. On lower sedation, the patient seems to be comprehending, and he follows simple instructions. Chest x-ray continues to show significant infiltrate in the left lower lobe and right lower lobe, hence I don't believe the patient is quite ready for weaning and extubation at this point in time. WBC count is 12.4 hemoglobin is 10.6, PTT is 88. Electronic for normal renal profile is normal blood sugar is 163 Reevaluated today on 03/22/2023, patient remains in the ICU intubated and mechanically ventilated sedated on propofol at 40 mcg/kg/m remains on Cardizem at 5 mg per hour remains on heparin as per cardiology. He is on assist control rate of 20, tidal volume 500 FiO2 40% PEEP of 5. ABG showed a pO2 of 103 pCO2 36 pH of 7.46, hence I cut down the FiO2 to 35%. Patient is also on TPN at 50 mL per hour. His chest x-ray is showing slight improvement in his infiltrate nonetheless continues to have significant consolidation in the left lower lobe, his right-sided pneumonia seems to be improving. Today the plan is to start addressing her mental status off sedation and decide whether the patient could be considered for weaning in the next 24 hours. Sedation holiday will be given today, and only assessment of mental status to be done today. WBC count remains at the time at 14.4 hemoglobin is 10.6 PTT is 53. Electrolytes are normal except for slightly elevated sodium of 146 and the rest of the labs are unremarkable. Progress note dated 03/23/2023. 67-year-old male who was admitted back on March 13. The patient is currently in the intensive care unit, being admitted there on March 19, and intubated on March 20. He remains on the mechanical ventilator. The patient is on volume a ssist control, rate 20, tidal volume 500, FiO2 35%, with a PEEP of 5. Blood gases show pO2 of 105, pCO2 34, and pH is 7.4. The patient is currently on saline at 20 mL an hour, a Cardizem drip at 5 mg an hour, peripheral parenteral nutrition at 40 mL an hour, and heparin via weightbase protocol. White count is 13.1, hemoglobin 10.5, hematocrit 33.2, and a platelet count 264,000. Sodium 147, potassium 4.1, chlorides 119, CO2 22, anion gap 6, BUN 41, and creatinine 1.02. Blood cultures have been negative. Gastric aspirate was positive for staph aureus. Chest x-ray shows stable bilateral consolidations and small effusions. Progress note dated 03/24/2023. 67-year-old male was admitted back on March 13. The patient is in the intensive care unit, and has been here since March 19. He was intubated the following day on March 20. Yesterday, his weaning parameters were excellent, and he was successfully extubated. He is currently on 2 L of oxygen by nasal cannula. He is getting Cardizem drip at 10 mg an hour, and TPN at 40 mL an hour. He's currently on D5 half-normal saline at 75 mL an hour, which will be converted D5W at 75 mL an hour. The patient failed his bedside swallow evaluation. White count of 17, hemoglobin 11.1, hematocrit 36.3, and platelet count 259,000. Sodi um 151, potassium 4.3, chlorides 119, CO2 22, anion gap 10, BUN 39, and creatinine 0.98. Troponins were 0.443 and 0.445. From 811, the gastric aspirate Gram stain was positive for methicillin-resistant staph aureus. The patient's chest x-ray shows bilateral infiltrates, and small effusion, and is stable. Progress note dated 03/25/2023. 67-year-old male admitted back on March 13, and, has been in the intensive care unit, since March 19. He was intubated for respiratory failure on March 20, and, was successfully extubated on March 23. Currently, the patient is on room air. He's getting Cardizem at 10 mg an hour, and TPN at 40 mL an hour. He is getting D5W at 75 mL an hour, because of hypernatremia and hyperchloremia. Because of a rash, we'll discontinue vancomycin, and start him on Zyvox, 600 mg twice a day. White count 15, hemoglobin 11.1, hematocrit 34.8, and platelet count is 233,000. Sodium 148, potassium 4.2, chlorides 121, CO2 20, BUN 29, creatinine 0.95. Methicillin-resistant staph aureus was noted in the sputum, dated March 20. No follow-up chest x-ray today. Progress note dated 03/26/2023. 67-year-old male who was admitted on March 13, and is been in the intensive care unit since March 19. He was intubated for respiratory failure on March 20, and was extubated on March 23. Currently, he's on room air. He is getting D5W at 75 mL an hour. He is eating. He did pass a swallow evaluation. White count 12.4, he will become 0.3, hematocrit 32.3, and platelet count 214,000. Sodium 140, potassium 3.1, chlorides 111, CO2 25, BUN 23, creatinine 0.98. Sputum had evidence of methicillin-resistant staph aureus. Chest x-ray shows a stable if lower lobe infiltrate. Progress note dated 03/27/2023. The patient is again seen in room 255. He's currently on room air. He is getting saline at KVO. The patient's Zyvox will be discontinued. The patient will continue on nystatin swish and swallow for oropharyngeal candidiasis. We'll DC updrafts. The patient could be considered for transfer to the general medical floor. Currently labs include a white count 9.1, hemoglobin 9.2, hematocrit 28.2, and a normal platelet count. Sodium 135, potassium 3.2, chlorides 108, CO2 21, BUN 22, and creatinine 1.05. Sputum reese stain from March 20 was positive for methicillin-resistant staph aureus. Treated adequately with vancomycin and Zyvox. No chest x-ray today. Progress note dated 03/29/2023. The patient is seen today in room 462. The patient's on room air. He is getting saline at 10 mL an hour. He complains about being short of breath and so I ask his nurse to place him on oxygen, by nasal cannula at 2 L. The patient continues on Zyvox. No new labs today. Labs from March 28 have been reviewed. Chest x-ray continues to show a retrocardiac opacity. Right arm, negative for DVT. On today's evaluation of a 2022, the patient is being seen for a follow-up. The patient is weak and he is quite debilitated due to his prolonged hospitalization. Nevertheless, his condition is stable. Is currently on room air oxygen. No signs of any respiratory distress at this point in time. The patient was intubated and extubated on 03/23/2023 and he was treated for an MRSA pneumonia. The patient currently is stable and hemodynamically stable. He is started on Zyvox 600 mg by mouth twice a day. He is on bronchodilators around the clock and is also using the incentive spirometer. His blood work from today shows a white cell count of 8 with a hemoglobin of 10.2 and a platelet count of 354. Potassium levels at 2. at least to be replaced. BUN is at 60 with a creatinine of 1.1. Most recent pro-calcitonin level from 03/28/2023 was 0.15. The chest x-ray showed a retrocardiac opacity on 03/28/2023. The patient is free of any chest pain. He has mild systolic heart failure with an ejection fraction of 45-50%. The patient is going to undergo an outpatient cardiac workup regarding underlying coronary artery disease. He remains on metoprolol. He remains on long-term antibiotic coagulation with Eliquis. Mental status is adequate. Overall, quite debilitated and weak and may benefit from rehabilitation. He does have a right upper extremity Doppler of the skin back negative for DVT. On 03/31/2023, the patient remains on room air oxygen. History having some difficulties with hoarseness and he has oropharyngeal candidiasis maintain on nystatin and Diflucan. The patient is also having some chest congestion and he is to do pulmonary toileting, he needs to sit up on a chair and using incentive spirometer along with his nebulized treatments. He remains on Zyvox. He is essentially weak and quite debilitated following his surgery. The patient has no new labs from today. Potassium level was replaced is currently up to 3.3. He remains on anticoagulation with Eliquis at a dose of 2.5 mg twice a day. He is known to have coronary artery disease. He remains on long-term and incontinence with Eliquis. Objective - Vital Signs Vital signs: Vital Signs Temp 97.7 F 03/31/23 07:29 Pulse 75 03/31/23 08:07 Resp 18 03/31/23 07:29 BP 171/93 03/31/23 07:29 Pulse Ox 96 03/31/23 07:54 FiO2 21 03/31/23 07:54 Intake & Output 03/30/23 03/31/23 03/31/23 18:59 06:59 18:59 Weight 109.9 kg Other: Voiding Method Urinal Urinal Diaper Diaper # Voids 2 ABP, PAP, CO, CI - Last Documented Arterial Blood Pressure 200/72 - Exam No acute distress, awake, alert, on room air. Room air saturations are 95 %. HEENT examination is grossly unremarkable. Neck supple. Full range of motion. No adenopathy thyromegaly or neck vein distention. Cardiovascular examination reveals regular rhythm rate. S1-S2 normal. No S3 or S4. No discernible murmur noted. Heart sounds are distant. Lungs reveal scattered bilateral rhonchi. No wheezes or crackles. Breath sounds are equal bilaterally. Abdomen soft with bowel sounds. No masses or tenderness. Extremities are intact. No cyanosis clubbing or edema. Skin reveals a macular papular erythematous rash, which is improved. Neurologic examination is brief but nonfocal. - Labs CBC & Chem 7: 03/30/23 10:37 03/31/23 09:57 Labs: Abnormal Lab Results - Last 24 Hours (Table) 03/30/23 03/30/23 03/31/23 Range/Units 10:37 10:37 03:02 RBC 3.31 L (4.30-5.90) m/uL Hgb 10.2 L (13.0-17.5) gm/dL Hct 31.3 L (39.0-53.0) % RDW 15.8 H (11.5-15.5) % Sodium 133 L (137-145) mmol/L Potassium 2.8 L 2.9 L (3.5-5.1) mmol/L Glucose 152 H (74-99) mg/dL Calcium 7.7 L (8.4-10.2) mg/dL 03/31/23 Range/Units 09:57 RBC (4.30-5.90) m/uL Hgb (13.0-17.5) gm/dL Hct (39.0-53.0) % RDW (11.5-15.5) % Sodium (137-145) mmol/L Potassium 3.3 L (3.5-5.1) mmol/L Glucose (74-99) mg/dL Calcium (8.4-10.2) mg/dL Microbiology - Last 24 Hours (Table) 03/28/23 20:52 Blood Culture - Preliminary Blood Assessment and Plan Plan: Acute hypoxemic respiratory failure, secondary to hospital-acquired pneumonia, S/P intubation and mechanical ventilation, on 03/20/2023, with successful ex tubation on 03/23/2023. The patient is currently on room air oxygen. No significant respiratory distress. Using the incentive spirometer. Methicillin-resistant staph aureus pneumonia/tracheobronchitis. The most recent chest x-ray from 03/28/2023 showed a retrocardiac opacity on the left and the patient is completing course of Zyvox. The patient is breathing comfortably. The patient is currently on room air oxygen. No significant leukocytosis. Acute abdominal pain, with small bowel obstruction/ileus, recovered Acute sepsis, likely related to underlying pneumonia, recovered Recent elective lumbosacral fusion, and decompression, March 2023, with a complicated postoperative course. Acute metabolic encephalopathy. History of lymphoma, S/P stem cell transplant. Acute non-ST segment elevation myocardial infarction. I'll patient workup to be done at the later stage regarding possibility of an underlying ischemic heart disease. Paroxysmal atrial fibrillation, currently under evaluation with Eliquis Plan: Continue with aggressive pulmonary toileting Continue and complete the antibiotic course The patient is currently on Zyvox The patient has oropharyngeal candidiasis and the patient was given oral Diflucan in addition to a statin to swish and swallow, the patient continues to be hoarse The patient is quite weak and debilitated and the patient would benefit from inpatient rehabilitation and physical therapy. No other active issues for now Continue nystatin and Diflucan Complete the course of Zyvox Adequate pulmonary toileting We'll continue to follow Discharge size in progress and the patient will likely benefit from ECF placement for further rehabilitation
--- NOTE | 2023-03-31 15:03 | P.DS ---
Providers Date of admission: 03/13/23 10:28 Expected date of discharge: 03/31/23 Attending physician: Abdiel Ye MD Consults: 03/13/23 18:53 Consult Physician Routine Consulting Provider: Trinity Stevenson Consult Reason/Comments: Medical Management Do you want consulting provider notified?: Yes 03/14/23 14:03 Consult Physician Routine Consulting Provider: Félix Schwartz Consult Reason/Comments: elevated troponin Do you want consulting provider notified?: Yes 03/18/23 13:27 Consult Physician Routine Consulting Provider: Paris Meza Consult Reason/Comments: sepsis Do you want consulting provider notified?: Yes 03/19/23 14:57 Consult Physician Routine Consulting Provider: Dotty Joe Consult Reason/Comments: Shortness of breath Do you want consulting provider notified?: Yes 03/20/23 12:41 Consult Physician Routine Consulting Provider: Antonio Damon Consult Reason/Comments: altered mental status Do you want consulting provider notified?: Yes 03/26/23 11:01 Consult Physician Routine Consulting Provider: Josue Kim Consult Reason/Comments: In-Pt rehab eval Do you want consulting provider notified?: Yes Primary care physician: [facility] Course: Severe sepsis due to MRSA pneumonia Toxic metabolic encephalopathy complicated by right upper extremity resting tremor Oral candidiasis Critical illness myopathy Non-ST elevation RI, type II Paroxysmal atrial fibrillation with RVR Cardiomyopathy, ejection fraction 45-50% HTN Hypothyroidism Acute hypoxic respiratory failure, s/p mechanical ventilation Postoperative ileus, resolved Patient is a 67-year-old male with prior lymphoma s/p stem cell transplant, hypothyroidism, hypertension, and degenerative disc disease who presented for elective lumbar sacral fusion with decompression. Patient underwent 2 to stage procedure with an anterior and posterior approach on . Postoperatively the patient developed ileus, A. fib with RVR, and a non-ST segment elevated myocardial infarction. General surgery and cardiology were consulted. Patient had an NG tube placed for possible ileus and was started on Reglan. He began having high-grade fevers and tachycardia on 03/18 and was started on vancomycin, cefepime, and Flagyl. He was seen by infectious disease. CXR on 03/19/23 showed infiltrate b/l lower lobes and right middle lobe. due to worsening respiratory distress the patient was transferred to the ICU on 03/19/23 and subsequently required intubation on 03/20/23. He was started on TPN on 03/21/23. He did re quire a cardizem gtt to control his A fib. He was successfully extubated on 03/23/23. He had a sputum culture that was mislabeled as a gastric aspirate which came back with MRSA. He developed significant hypernatremia and required D5W. Patient did develop a rash and therefore vancomycin was discontinued and he was transitioned to Zyvox. He completed a total of 10 days of antibiotics, however, ID wanted to extend the course of abx. He passed a swallow study was able to eat and His bowel function had returned so TPN was discontinued. Pt was moderate assist with PT after being transitioned back to the floor. He was noted to have intermittent issues with rate control and had his metoprolol uptitrated. He was discharged with instructions to f/u with PCP, orthopedic surgery and cardiology. Imaging: Acute abdominal series 03/19/23: Mildly dilated small bowel loops CT abdomen and pelvis 03/19/23: Inflammatory changes in the left lower quadrant extending towards the inguinal region with tiny amount of free air CT brain 03/16/23: No acute intracranial process Echocardiogram: Ejection fraction 45-50% with globally reduced left ventricular systolic function, aortic sclerosis Right upper extremity doppler- negative for DVT I spent 45 minutes coordinating this discharge on 03/31 General: nontoxic, no distress, appears at stated age Cardiovascular: S1S2 reg, no murmur, positive posterior tibial pulse bilateral, Lungs: Decreased bs b/l bilateral, no rhonchi, no rales , no accessory muscle use Abdominal: soft, nontender to palpation, no guarding, no appreciable organomegaly Ext: no gross muscle atrophy, upper extremity edema r>L, no contractures Neuro: CN II-XI grossly intact, no focal neuro deficits Psych: Alert, oriented, appropriate affect Patient Condition at Discharge: Good Plan - Discharge Summary Discharge Rx Participant: No New Discharge Prescriptions: No Action Metoprolol Tartrate [Lopressor] 50 mg PO BID Cetirizine HCl [Zyrtec] 10 mg PO DAILY Pantoprazole [Protonix] 40 mg PO QAM Ergocalciferol [Vitamin D2 (1250 Mcg = 79792 Iu)] 1,250 mcg PO WE Magnesium 250 mg PO DAILY Testosterone Cypionate [Depo-Testosterone] 100 mg IM AMBRIZ Salt Tab(Unk) 1 tab PO DIRECTED PRN PRN Reason: low sodium Lipo Falvinoid(Unk) 1 tab PO DAILY tadalafiL [Cialis] 5 mg PO DAILY Levothyroxine Sodium [Synthroid] 250 mcg PO QAM Ibuprofen [Motrin Ib] 200 mg PO Q8H PRN PRN Reason: Pain Acetaminophen Tab [Tylenol Tab] 1,000 mg PO Q6H PRN PRN Reason: Pain Fluticasone Nasal [place] [Flonase Nasal [place]] 2 spray EA NOSTRIL DAILY ALPRAZolam [Xanax XR] 0.5 mg PO BID Sertraline [Zoloft] 100 mg PO QAM Cyclobenzaprine [Flexeril] 10 mg PO TID B Complex W-C No.20/Folic Acid [Renal Caps Softgel] 1 mg PO DAILY Tumeric (Unk) 1 tab PO DAILY Alpha Lipoic Acid 1,200 mg PO DAILY Discharge Medication List ALPRAZolam [Xanax XR] 0.5 mg PO BID 01/12/23 [History] Acetaminophen Tab [Tylenol Tab] 1,000 mg PO Q6H PRN 01/12/23 [History] B Complex W-C No.20/Folic Acid [Renal Caps Softgel] 1 mg PO DAILY 01/12/23 [History] Cetirizine HCl [Zyrtec] 10 mg PO DAILY 01/12/23 [History] Cyclobenzaprine [Flexeril] 10 mg PO TID 01/12/23 [History] Ergocalciferol [Vitamin D2 (1250 Mcg = 49533 Iu)] 1,250 mcg PO WE 01/12/23 [History] Fluticasone Nasal [place] [Flonase Nasal [place]] 2 spray EA NOSTRIL DAILY 01/12/23 [History] Ibuprofen [Motrin Ib] 200 mg PO Q8H PRN 01/12/23 [History] Levothyroxine Sodium [Synthroid] 250 mcg PO QAM 01/12/23 [History] Magnesium 250 mg PO DAILY 01/12/23 [History] Metoprolol Tartrate [Lopressor] 50 mg PO BID 01/12/23 [History] Pantoprazole [Protonix] 40 mg PO QAM 01/12/23 [History] Sertraline [Zoloft] 100 mg PO QAM 01/12/23 [History] Alpha Lipoic Acid 1,200 mg PO DAILY 02/24/23 [History] Lipo Falvinoid(Unk) 1 tab PO DAILY 02/24/23 [History] Salt Tab(Unk) 1 tab PO DIRECTED PRN 02/24/23 [History] Testosterone Cypionate [Depo-Testosterone] 100 mg IM AMBRIZ 02/24/23 [History] Tumeric (Unk) 1 tab PO DAILY 02/24/23 [History] tadalafiL [Cialis] 5 mg PO DAILY 03/06/23 [History] Follow up Appointment(s)/Referral(s): Yariel Evans [NON-STAFF] - 1-2 Days (will call to set up appointment, any questions please call agency. ) Juan Jose Villa DO [Doctor of Osteopathic Medicine] - 04/03/23 10:30 am Félix Schwartz MD [STAFF PHYSICIAN] - 2 Weeks Activity/Diet/Wound Care/Special Instructions: Spine Discharge and Recovery Instructions Medications: See medication list All medication refills should be obtained through your primary care doctor or your clinic spine surgeon. Please discuss prescription refills at your follow up appointment. Do not call the hospital for medication refills. Dressing: Leave your dressing in place for a total of 5 days post operatively. Then you may remove your dressing and leave open to air. Keep the area clean and if not able to keep area clean, then cover with sterile gauze and tape. Showering: You may shower 3 days after your procedure allowing soap and water to run over incision. Do not scrub. Do not soak. Blot dry. Follow up: Please confirm a follow up appointment with your surgeon 3 weeks post operatively. Please make an appointment to follow up with your PCP in 1-2 weeks after surgery for evaluation 3 phase, 3-week plan POST OP WEEKS 1-3 1. Lifting/carrying/pushing/pulling limited to less than 5 pounds. 2. Do not sit for longer than 15 minutes at one time. Get up and walk around. Prolonged sitting is NOT advised. If you lay down, see if you can tolerate laying down on you front (belly side) 3. Walk for periods of 15 minutes = 1 mile but no longer; do it multiple times times each day. 4. Ice your low back after activity. POST OP WEEKS 3-6 1. Lifting limited to less than 20 pounds. 2. Do not sit for longer than 30 minutes at a time. Frequently change positions. Use a sit-to stand workstation or take frequent breaks from sitting if you have returned to work. 3. Walk for 30 minutes each day. If possible, do these three or more times a day POST OP WEEKS 6+ At your 6-week appointment we will give you a physical therapy referral to focus on a core stabilization and strengthening program. You should also work on leg & buttock strengthening, hamstring & quadriceps stretching, and continue a low impact aerobic activity program such as swimming, walking, or riding a stationary bicycle. During the initial 6 weeks after your surgery, you are at the highest risk of re-injuring your spine. You should generally avoid BLTs (bending, lifting and twisting combination motions) and follow the above guidelines to reduce the chance of reinjury. You can anticipate post op appointments in our office at approximately 3 weeks and 6 weeks after your surgery. INCISION CARE: If your incision is not draining you do NOT need to cover it with a dressing. Keep your incision clean, dry and intact. In most cases, we apply skin glue, rikki or sutures to the incision at the time of surgery. This will be like a crust or have the appearance of a scab and will fall off in time on its own. The stitches or rikki need to be removed at 3 weeks post op appointment. You may begin to shower 3 days after surgery (this allows the glue to ken well). However, please avoid scrubbing the incision site or peeling off any of the skin glue. This will ensure optimal healing of your incision. Also, during this time avoid soaking the incision area in water - this includes swimming pools, hot tubs or baths. No ointments, lotions or oils on the incision until your surgeon allows. Leave rikki, sutures or glue in place. Neurological dysfunction that comes on suddenly can also be a sign of a stroke. Below some common symptoms of a stroke are listed: B - balance difficulty such as sudden onset walking or leaning to one side - NEW E - eye problem such as sudden double vision or trouble seeing on one side - NEW F - Facial weakness or numbness on one side - NEW A - Arm or leg weakness or numbness on one side - NEW S - Slurred speech or difficulty with word finding - NEW T - Time is BRAIN! Call 911 as soon as you recognize these symptoms Diet: Consume a regular diet rich in vegetables and lean protein such as chicken or fish. You should consume in a ratio of approximately 20% fats|40% carbohydrates|40%protein. Vegetables, sweet potatoes, brown rice or quinoa are examples of good carbohydrates. Chips, white bread, cookies and sweets/sugar are examples of bad carbohydrates. Limit your bad carbs, go wild with good carbs. "Life's Simple 7" Guidelines as per [place] [employer] These will help you reclaim your life after surgery and dry cleaner helper in your recovery, keeping in mind your restrictions. (1) Get Active. Physical activity can help people lose weight, control high blood pressure and cholesterol, feel emotionally better, and sleep better. (2) Control Cholesterol. Avoid a diet high in saturated fat, trans fat, & cholesterol. Limit whole milk & cream, ice cream, butter, egg yolks, processed meats (like sausage and hot dogs), and fatty meats. Choose healthy foods that are low in saturated fat, trans fat and cholesterol which include: Fruits and vegetables, fiber rich grain products (like whole grain pasta and brown rice), lean meat such as chicken, fish, nuts, seeds, and legumes. (3) Eat Better. Eat small portions. Shop at the grocery with a list and do not stray from it. Tips for a healthy diet include: Limit sodium intake to less than 1500mg daily, avoid prepackaged, processed, and fast foods, choose a diet rich in fruits, vegetables, and whole grain, high fiber foods, and limit saturated & cholesterol in your diet. (4) Manage Blood Pressure. If you have high blood pressure, you should have a cuff at home so that you can check your blood pressure regularly. Be sure you have a good cuff. An arm one is generally better than a wrist one. Bring the cuff to a doctor's appointment to validate that the measurements that your cuff are taking are accurate. Take your blood pressure twice daily when you are sitting down and relaxing. Record the numbers in a log and bring this log with you to your doctors' appointments. (5) Lose Weight if your BMI is above 25. A healthy BMI is between 19-25. To calculate Your BMI, you may use a Standard BMI Calculator on the NIH BMI website: <www.nhlbi.nih.gov/guidelines/obesity/BMI/bmicalc.htm>. Weigh oneself daily. If you are overweight, set a goal to lose weight. A pound a week loss if needed is a good target. (6) Reduce Blood Sugar. Limit foods and liquids with "added sugars." (Added sugars include sucrose, fructose, glucose, maltose, dextrose, high fructose corn syrup, corn syrup, concentrated fruit juice and honey). (7) Stop Smoking. If you smoke, quitting smoking is one of the best things that you can do for your health. Smoking increases your risk of heart attack, stroke, and peripheral vascular disease, which is a build-up of plaque in your arteries. Please discard all the cigarettes and lighters in your house. Have a plan for what you will do when you have the urge to smoke. Direct and second- hand smoke shortens your life as well as the lives of your family, friends and others around you. For your health and the health of those around you, please consider quitting! Proper Bending Body Mechanics: Maintain a wide stance with one foot slightly in front of the other. Keep your back straight. Bend utilizing the strength in your hips and knees. Do not bend at the waist. Maintain the lifted object at your waist-level close to your body. Avoid lifting weight that causes immediately pain or pain anywhere in the body afterwards. Smoking/Nicotine If there was ever one thing that you could do to increase your overall health, decrease your risk of cardiovascular problems by about 39% the second you make the choice, it is to STOP SMOKING. Your body's most instant gratification is the second you stop smoking. We have all heard the studies, read the articles but it is true, smoking is extremely bad for your overall health, and moreover it is detrimental to your bone health. Nicotine, IN ANY FORM, kills bone cells, prevents your body from healing fractures, and significantly prolongs healing after surgery. In spine surgery specifically, it increases your risk of not healing your bones to create a fusion and increases your risk of having a revision surgery due to this up to 60%. I know it is hard. I know it feels impossible. But there are ways. Take control of your life. We are here to help you through it. And when you are ready, ask us and we can direct you to help if you desire. Use the START Plan to Quit Smoking (please visit the Helpguide.org website listed below for more information): S = Set a quit date. Choose a date within the next 2 weeks, so you have enough time to prepare without losing your motivation to quit. If you mainly smoke at work, quit on the weekend, so you have a few days to adjust to the change. T = Tell family, friends, and co-workers that you plan to quit. Let your friends and family in on your plan to quit smoking and tell them you need their support and encouragement to stop. Look for a quit doug who wants to stop smoking as well. You can help each other get through the rough times. A = Anticipate and plan for the challenges you'll face while quitting. Most people who begin smoking again do so within the first 3 months. You can help yourself make it through by preparing ahead for common challenges, such as nicotine withdrawal and cigarette cravings. R = Remove cigarettes and other tobacco products from your home, car, and work. Throw away all your cigarettes (no emergency pack!), lighters, ashtrays, and matches. Wash your clothes and freshen up anything that smells like smoke. Shampoo your car, clean your drapes and carpet, and steam your furniture. T = Talk to your doctor about getting help to quit. Your doctor can prescribe medication to help with withdrawal and suggest other alternatives. If you can't see a doctor, you can get many products over the counter at your local pharmacy or grocery store, including the nicotine patch, nicotine lozenges, and nicotine gum. Resources for Quitting Smoking: <https://www.[place].gov/documents/[facility]/Q uit_Tobacco_Resources_for_patients_313480_7.pdf> Supplementation: Take recommended dosages of Vitamin D and Calcium to help fortify your bones and help them to heal. See your health maintenance packet for dosages and recommended levels. DVT/VTE prophylaxis: You will be given compression stockings from the hospital. Wear these daily for the first two weeks after surgery. You may take them off at night. You may be prescribed a medication to help thin your blood. Take this as directed. If you are not prescribed this medication, early and frequent ambulation has been shown to be the best prophylaxis to deep vein thrombosis and sequelae related to this event.
[2023-03-31 15:52] VITALS: BP 142/83; PULSE 95; RESP 19
--- NOTE | 2023-03-31 16:06 | P.PN ---
Subjective Progress Note Date: 03/31/23 Principal diagnosis: MRSA pneumonia Patient is a 67-year-old male electively admitted to the hospital 03/13/2023 in this patient who is s/p anterior lumbar interbody fusion L5-S1 insertion of interbody device with anterior approach patient did develop postop ileus and did have a new fever prompting infection disease consultation. Patient did have a worsening of his respiratory distress requiring transfer to the ICU and the patient was intubated morning of 03/20/2023 On today's visit that is 03/31/2023, the patient continues to be afebrile, the patient is breathing comfortably on room air. The patient denies having any chest pain or any worsening cough and no sputum production, the patient's accompanying of sore throat from the thrush no nausea no vomiting no abdominal pain no diarrhea. Patient did have a white count of 8.0 hemoglobin is 10.2 as of yesterdayhe was done today creatinine is 1.10 Objective - Vital Signs Vital signs: Vital Signs Temp 97.7 F 03/31/23 07:29 Pulse 85 03/31/23 11:52 Resp 18 03/31/23 07:29 BP 171/93 03/31/23 07:29 Pulse Ox 96 03/31/23 07:54 FiO2 21 03/31/23 07:54 Intake & Output 03/30/23 03/31/23 03/31/23 18:59 06:59 18:59 Weight 109.9 kg Other: Voiding Method Urinal Urinal Diaper Diaper # Voids 2 1 ABP, PAP, CO, CI - Last Documented Arterial Blood Pressure 200/72 - Exam GENERAL DESCRIPTION: An elderly male lying in bed in no distress RESPIRATORY SYSTEM: Unlabored breathing , decreased breath sounds at bases HEART: S1 S2 regular rate and rhythm , ABDOMEN: Soft , no tenderness EXTREMITIES: No edema feet - Labs CBC & Chem 7: 03/30/23 10:37 03/31/23 09:57 Labs: Abnormal Lab Results - Last 24 Hours (Table) 03/31/23 03/31/23 Range/Units 03:02 09:57 Potassium 2.9 L 3.3 L (3.5-5.1) mmol/L Microbiology - Last 24 Hours (Table) 03/28/23 20:52 Blood Culture - Preliminary Blood Assessment and Plan (1) MRSA pneumonia Current Visit: Yes Status: Acute Code(s): J15.212 - PNEUMONIA DUE TO METHICILLIN RESISTANT STAPHYLOCOCCUS AUREUS SNOMED Code(s): 690547395753990 (2) Rash Current Visit: Yes Status: Acute Code(s): R21 - RASH AND OTHER NONSPECIFIC SKIN ERUPTION SNOMED Code(s): 182215825 (3) Thrush Current Visit: Yes Status: Acute Code(s): B37.0 - CANDIDAL STOMATITIS SNOMED Code(s): 82562822 Plan: 1patient with a postop fever in this patient with extensive surgery requiring anterior lumbar interbody fusion L5-S1 and insertion of interbody device developing a postop ileus now low-grade fever and tachycardia possible abdominal source however no significant tenderness was noticed on abdominal Examination,, patient did have a negative UA chest x-ray did shows mild strandy atelectasis lower lungs patient did have a CT abdominal pelvis Did show some inflammatory changes in the left lower quadrant and tiny air no mention of any abscess or perforation 2-blood culture has been negative, CRP is elevated and procalcitonin is normal at 0.09 3the patient sputum cultures came back positive with MRSA which has been mislabeled as gastric aspirate blood culture has been negative. 4-rash possibly drug related questionable related to Dilaudid which was discontinued and rash seemed to be resolving 5patient did have a resolution of the fever chest x-ray still showing pneumonia to continue with zyvox for another 5 days to finish his course of therapy 6-extensive thrush to continue with the nystatin swish and swallow will continue with oral Diflucan to finish a ten-day course of therapy Dictation was produced using [employer] dictation software. please excuse any grammatical, word or spelling errors. Time with Patient: Less than 30
--- NOTE | 2023-04-01 23:10 | CDI ---
Documentation Clarification Form Date: 04/01/2023 10:48:44 PM From: Velvet Flores Phone: Admit Date: 03/13/2023 10:28:00 AM Patient Name: Andre Mary Visit Number: [id number] Discharge Date: 03/31/2023 06:31:00 PM ATTENTION: The Clinical Documentation Specialists (CDI) and [facility] Coding Staff appreciate your assistance in clarifying documentation. Please respond to the clarification below the line at the bottom and electronically sign. The CDI & [facility] Coding staff will review the response and follow-up if needed. Please note: Queries are made part of the Legal Health Record. If you have any questions, please contact the author of this message via ITS. Dr. Dina Alejandre Tachycardiapossibly related touncontrolled pain is documented Dr. Alejandre Progress Note 03/14 which may lack sufficient clinical evidence/support in the medical record. Additional clarification is requested. History/Risk Factors: 67yo M, spondylolisthesis w radiculopathy, lumbosacral region s/p fusion, multi PO Dx, T2 NSTEMI non POA, SBO w ileus, Hx lymphoma Clinical Indicators: Painis uncontrolled, 7/10 in severity. Treatment: Leukocytosiscould be reactive as well asdue to steroids. Blood cultures are negative so far. Please clarify if uncontrolled pain a valid diagnosis? [ ] Uncontrolled Postoperative Pain [ ] Uncontrolled Pain, unspecified [ ] Uncontrolled Pain, not significant diagnosis [ ] Unable to determine (Template Last Revised: October 2020) MTDD
--- NOTE | 2023-04-01 23:28 | CDI ---
Documentation Clarification Form Date: 04/01/2023 11:12:00 PM From: Velvet Flores Phone: Admit Date: 03/13/2023 10:28:00 AM Patient Name: Andre Mary Visit Number: [id number] Discharge Date: 03/31/2023 06:31:00 PM ATTENTION: The Clinical Documentation Specialists (CDI) and [facility] Coding Staff appreciate your assistance in clarifying documentation. Please respond to the clarification below the line at the bottom and electronically sign. The CDI & [facility] Coding staff will review the response and follow-up if needed. Please note: Queries are made part of the Legal Health Record. If you have any questions, please contact the author of this message via ITS. Dr. Abdiel Ye Your patient has the documented diagnosis of systolic heart Progress Note 03/30. Additional information regarding the acuity of CHF is requested. History/Risk Factors: 67yo M, spondylolisthesis w radiculopathy, lumbosacral region s/p fusion, multi PO Dx, T2 NSTEMI non POA, SBO w ileus, Hx lymphoma Clinical Indicators: VS/Pulse OX: 03/13 100 03/30 93 BNP: 9410 03/30 Echocardiogram Results: ejection fraction 45-50%, mildmitral regurgitation, and aortic sclerosiswithout significantstenosis. Telemetryrevealssinus tachycardiawith a heart rate around 120. Chest X Ray: No acute cardiopulmonary disease/process. Coiled appearance of the right chest [id number] tubing 03/16 Treatment: he patient is going to undergo an outpatient cardiac workup regarding underlyingcoronary artery disease. He remains on metoprolol. In your professional opinion, can you please clarify the acuity of CHF if known? [ ] Acute Systolic Heart Failure (reduced EF) [ ] Present on Admission [ ] Not Present on Admission [ ] Chronic Systolic Heart Failure (reduced EF) [x] Acute on Chronic Systolic Heart Failure (reduced EF) (Template Last Revised: September 2020) MTDD
== END 2023-03-31 18:31 | DRG 453 ==
LOC: 2ORMAIN 03-13 10:28 → 3SCARD 03-13 19:55 → 4SSUR 03-13 20:23 → 3SCARD 03-14 22:20 → 2SICU 03-19 20:58 → 4SSUR 03-27 18:16
PROVIDERS: ADMIT Internal Medicine; ATTEND Internal Medicine
PROC: 01NB0ZZ Release Lumbar Nerve, Open Approach (ICD-10-PCS; 2023-03-13)
PROC: 01NR0ZZ Release Sacral Nerve, Open Approach (ICD-10-PCS; 2023-03-13)
PROC: 0ST40ZZ Resection of Lumbosacral Disc, Open Approach (ICD-10-PCS; 2023-03-13)
PROC: 8E0WXBZ Computer Assisted Procedure of Trunk Region (ICD-10-PCS; 2023-03-13)
PROC: 0SG30A0 Fusion of Lumbosacral Joint with Interbody Fusion Device, Anterior Approach, Anterior Column, Open Approach (ICD-10-PCS; principal; 2023-03-13 12:30)
PROC: 0SG30K1 Fusion of Lumbosacral Joint with Nonautologous Tissue Substitute, Posterior Approach, Posterior Column, Open Approach (ICD-10-PCS; principal; 2023-03-13 12:30)
PROC: 0SG00AJ Fusion of Lumbar Vertebral Joint with Interbody Fusion Device, Posterior Approach, Anterior Column, Open Approach (ICD-10-PCS; 2023-03-13 12:30)
PROC: 0SG30AJ Fusion of Lumbosacral Joint with Interbody Fusion Device, Posterior Approach, Anterior Column, Open Approach (ICD-10-PCS; 2023-03-13 12:30)
PROC: 02HV33Z Insertion of Infusion Device into Superior Vena Cava, Percutaneous Approach (ICD-10-PCS; 2023-03-15)
PROC: 03HY32Z Insertion of Monitoring Device into Upper Artery, Percutaneous Approach (ICD-10-PCS; 2023-03-15)
PROC: 4A133B1 Monitoring of Arterial Pressure, Peripheral, Percutaneous Approach (ICD-10-PCS; 2023-03-15)
PROC: 4A133J1 Monitoring of Arterial Pulse, Peripheral, Percutaneous Approach (ICD-10-PCS; 2023-03-15)
PROC: 0D9670Z Drainage of Stomach with Drainage Device, Via Natural or Artificial Opening (ICD-10-PCS; 2023-03-16)
PROC: 5A1945Z Respiratory Ventilation, 24-96 Consecutive Hours (ICD-10-PCS; 2023-03-20)
PROC: 0BH18EZ Insertion of Endotracheal Airway into Trachea, Via Natural or Artificial Opening Endoscopic (ICD-10-PCS; 2023-03-20)
PROC: 3E0436Z Introduction of Nutritional Substance into Central Vein, Percutaneous Approach (ICD-10-PCS; 2023-03-21)
DX: M43.16 Spondylolisthesis, lumbar region (principal); A41.02 Sepsis due to Methicillin resistant Staphylococcus aureus; J80 Acute respiratory distress syndrome; R65.20 Severe sepsis without septic shock; G92.8 Other toxic encephalopathy; I50.23 Acute on chronic systolic (congestive) heart failure; J15.212 Pneumonia due to Methicillin resistant Staphylococcus aureus; I21.A1 Myocardial infarction type 2; Z94.84 Stem cells transplant status; I42.9 Cardiomyopathy, unspecified; K56.7 Ileus, unspecified; I48.3 Typical atrial flutter; K91.89 Other postprocedural complications and disorders of digestive system; G72.81 Critical illness myopathy; E87.0 Hyperosmolality and hypernatremia; B37.0 Candidal stomatitis; E87.20 Acidosis, unspecified; E87.1 Hypo-osmolality and hyponatremia; K92.2 Gastrointestinal hemorrhage, unspecified; I11.0 Hypertensive heart disease with heart failure; I70.0 Atherosclerosis of aorta; I48.0 Paroxysmal atrial fibrillation; G62.89 Other specified polyneuropathies; E87.8 Other disorders of electrolyte and fluid balance, not elsewhere classified; I08.0 Rheumatic disorders of both mitral and aortic valves; E03.9 Hypothyroidism, unspecified; M47.26 Other spondylosis with radiculopathy, lumbar region; M48.061 Spinal stenosis, lumbar region without neurogenic claudication; M47.27 Other spondylosis with radiculopathy, lumbosacral region; M48.07 Spinal stenosis, lumbosacral region; M51.16 Intervertebral disc disorders with radiculopathy, lumbar region; G47.9 Sleep disorder, unspecified; E78.5 Hyperlipidemia, unspecified; H91.91 Unspecified hearing loss, right ear; K21.9 Gastro-esophageal reflux disease without esophagitis; M50.30 Other cervical disc degeneration, unspecified cervical region; N40.0 Benign prostatic hyperplasia without lower urinary tract symptoms; R50.82 Postprocedural fever; E86.0 Dehydration; I44.0 Atrioventricular block, first degree; E87.5 Hyperkalemia; E86.1 Hypovolemia; T38.0X5A Adverse effect of glucocorticoids and synthetic analogues, initial encounter; H81.09 Meniere's disease, unspecified ear; I25.10 Atherosclerotic heart disease of native coronary artery without angina pectoris; J40 Bronchitis, not specified as acute or chronic; K44.9 Diaphragmatic hernia without obstruction or gangrene; E87.6 Hypokalemia; R32 Unspecified urinary incontinence; R15.9 Full incontinence of feces; G89.29 Other chronic pain; M51.36 Other intervertebral disc degeneration, lumbar region; H93.11 Tinnitus, right ear; R21 Rash and other nonspecific skin eruption; Y95 Nosocomial condition; Z87.01 Personal history of pneumonia (recurrent); Z98.1 Arthrodesis status; Z85.72 Personal history of non-Hodgkin lymphomas; S32.009S Unspecified fracture of unspecified lumbar vertebra, sequela; Z97.4 Presence of external hearing-aid; Z92.21 Personal history of antineoplastic chemotherapy; Z79.890 Hormone replacement therapy; Z79.899 Other long term (current) drug therapy; Z88.8 Allergy status to other drugs, medicaments and biological substances; Z88.0 Allergy status to penicillin; Z78.1 Physical restraint status
CPT/HCPCS: 36410; 36600; 70450; 71045; 71046; 72100; 72131; 74019; 74022; 74177; 76937; 80048; 80053; 80076; 80202; 81001; 82140; 82330; 82550; 82565; 82607; 82746; 82805; 83605; 83615; 83735; 83880; 84100; 84132; 84145; 84439; 84443; 84478; 84481; 84484; 85025; 85027; 85049; 85379; 85384; 85610; 85730; 86140; 86850; 86891; 86900; 86901; 87040; 87070; 87077; 87186; 87205; 93005; 93306; 94002; 94003; 94640; 94760

== ENCOUNTER → 2023-03-04 | Outpatient (CLI) | payer MEDICARE | END | disposition home or self-care (01) | LOC: LABPAT 15:49 | PROVIDERS: ATTEND Orthopaedic Surgery | DX: Z01.812 Encounter for preprocedural laboratory examination (principal); Z22.322 Carrier or suspected carrier of Methicillin resistant Staphylococcus aureus; M47.816 Spondylosis without myelopathy or radiculopathy, lumbar region; M48.061 Spinal stenosis, lumbar region without neurogenic claudication; M43.16 Spondylolisthesis, lumbar region | CPT/HCPCS: 87070 ==

== ENCOUNTER → 2023-10-27 | Outpatient (CLI) | payer MEDICARE ==
[2023-10-27 17:07] LABS: Appearance,Urine Cloudy (Clear); Bilirubin,Urine Negative (Negative); Blood,Urine Moderate (Negative); Color,Urine Yellow (Yellow); Ketones,Urine Trace (Negative); Nitrite,Urine Negative (Negative); PH, Urine 5.5; Specific Gravity,Urine 1.021 (1.001-1.030); Urobilinogen,Urine 0.2 E.U./DL
[2023-10-27 17:30] LABS: Bacteria,Urine 3+ (None Seen)
[2023-10-27 17:33] LABS: Basophils # (A) 0.06 X 10*3/uL (0.00-0.10); Basophils % (A) 0.6 %; Eosinophils # (A) 0.06 X 10*3/uL (0.04-0.35); Eosinophils % (A) 0.6 %; HCT 37.4 % (39.6-50.0); HGB 11.6 g/dL (13.0-17.0); Lymphocytes % (A) 8.7 %; MCH 28.9 pg (27.0-32.0); MCV 93.3 FL (80.0-97.0); Mean Platelet Volume 9.5 FL (9.5-12.2); Monocytes # (A) 1.14 X 10*3/uL (0.20-1.00); NRBC Per 100 WBC 0 X 10*3/uL (0.00-0.01); Neutrophils # (A) 8.14 X 10*3/uL (1.80-7.70); Neutrophils % (A) 78.6 %; Platelet Count 300 X 10*3/uL (140-440); RBC 4.01 X 10*6/uL (4.40-5.60); RDW 19.2 % (11.5-14.5); WBC 10.35 X 10*3/uL (4.50-10.00)
[2023-10-27 19:20] LABS: BUN/Creat Ratio 16.73 Ratio (12.00-20.00); Blood Urea Nitrogen 18.4 mg/dL (9.0-27.0); Carbon Dioxide 22.1 mmol/L (21.6-31.8); Chloride 98 mmol/L (96-109); Glucose 107 mg/dL (70-110); Potassium 4.4 mmol/L (3.5-5.5); Sodium 137 mmol/L (135-145)
== END | disposition home or self-care (01) ==
LOC: LABPAT 11:27
PROVIDERS: ATTEND Internal Medicine
DX: Z01.812 Encounter for preprocedural laboratory examination (principal); N40.1 Benign prostatic hyperplasia with lower urinary tract symptoms
CPT/HCPCS: 36415; 80048; 81001; 82533; 85025; 87086

== ENCOUNTER → 2024-02-17 | Outpatient (CLI) | payer MEDICARE ==
[2024-02-17 14:33] VITALS: RESP 16
[2024-02-17 14:42] VITALS: BP 153/92; PULSE 75
--- NOTE | 2024-02-17 14:57 | P.PAINPG ---
PQRS Measure Charge Sheet Comment: HISTORY OF PRESENT ILLNESS: A 68 yr old wheelchair bound male w at side presents today w severe and chronic neck pain secondary to spondylosis, DDD and facet arthropathy without myelopathy for evaluation s/p WINSOME C6-C7 #1. Pt states he experienced % pain relief x 10 mo s/p procedure. Pt states pain level is provoked at 8 /10 in intensity, constant, localized in the mid to lower cervical spine L> R, achy in character w shooting pain towards the BL shoulders. Pain is provoked by hyperextension. Pain is alleviated by medications , topical, ice, heat, PT x 6 wks which ended in December 2022, chiropractic treatments semi yearly w last visit in Fall 2021, repositioning and rest. Interventional procedures include L5-S1 ALIF, L4-L5 posteriolateral/ interbody fusion, WINSOME C6-C7 x1 Medications include Advil, Ibu, Tyl REVIEW OF ORGAN SYSTEMS: CONSTITUTIONAL: No fevers or chills. No recent weight loss. NEUROLOGICAL: + numbness and tingling along the distal extremities. No seizure disorders or headaches. MUSCULOSKELETAL: + pain PSYCHIATRIC: Denies current depression or suicidal thoughts. Physical Examinations : Constitutional : Cooperative , not in acute distress . Neurologic : Cranial nerve II to XII intact. No focal neurological deficits. Psychiatric : alert & oriented x 3. Matching mood & appropriate affect. Judgment & insight intact. Musculoskeletal : Cervical Spine Motor strength in the deltoid and biceps: Normal right side. Normal Left side Motor strength biceps and the wrist extensors: Normal right side . Normal left side Motor strength in the triceps muscle: Normal right side. Normal left side Deep tendon reflexes: Normal at the biceps. Normal at Brachioradialis. Normal at triceps Vertebral body tenderness to deep palpation over C6 Cervical facet loading test: positive bilaterally Spurling test: positive L > R Neck distraction test: positive bilaterally Ching sign: positive bilaterally Lumbar spine Motor strength lower extremities ,thigh and legs 5/5 Right side , 5/5 Left side Deep tendon reflexes : Normal Knee Jerk. Normal Ankle Jerk Vertebral body tenderness over Diaz Test positive Lumbar facet Loading Test: positive Right / positive Left Range of motion of the lumbar spine Flexion 30 degrees, extension 10 degrees Straight Leg Raise test: Left/ Right positive at degree Boone test: positive right / positive left. Severe tenderness over the Sacroiliac joint on the Right / Left sides Vickey test: positive bilaterally Seated flexion test: positive bilaterally. Sacral spine : Severe tenderness over the Sacroiliac joint: right side / left side Range of motion: Flexion of the lumbar spine <60 degrees Range of motion: Extension of the lumbar spine <20 degrees Gaenslen's Test positive Ac's Test positive Boone test: positive right side / left side Thigh Thrust Test Sacral Thrust Test Imaging: MRI noncontrast of the cervical spine from 11/26/22 reviewed Assessment/ Plan : Cervical spondylosis Recommendation of medication management. Opiate/ narcotic agreement signed 02/17/24. MS ER 15mg #60 w 1 RF. Use, side effects, adverse reactions, safe storage discussed. All questions answered. I have spent greater than 30 minutes on patient care today. Dr Rodriguez was available by phone for the evaluation of this patient. The time was used to review the medical records including relevant urine studies and Prescription history (MAPs), review of the available imaging, evaluation and examination of the patient, coordination of care with the medical staff and if applicable referring physicians, as well as creation of the medical record PQRS Narrative: Hx Alcohol Use (MH) Yes: 3X WEEKLY Home Medications: Ambulatory Orders Acetaminophen Tab [Tylenol] 1,000 mg PO Q6H PRN 01/12/23 Cetirizine HCl [Zyrtec] 10 mg PO DAILY 01/12/23 Ergocalciferol [Vitamin D2 (1250 Mcg = 73418 Iu)] 1,250 mcg PO WE 01/12/23 Fluticasone Nasal [place] [Flonase Nasal [place]] 1 spray EA NOSTRIL DAILY 01/12/23 Levothyroxine Sodium [Synthroid] 264 mcg PO QAM 01/12/23 Magnesium 250 mg PO DAILY PRN 01/12/23 Pantoprazole [Protonix] 40 mg PO QAM 01/12/23 Sertraline [Zoloft] 100 mg PO QAM 01/12/23 Alpha Lipoic Acid 1,200 mg PO DAILY 02/24/23 Lipo Falvinoid(Unk) 2 tab PO DAILY 02/24/23 Salt Tab(Unk) 1 - 2 tab PO DIRECTED PRN 02/24/23 Testosterone Cypionate [Depo-Testosterone] 100 mg IM AMBRIZ 02/24/23 Apixaban [Eliquis] 2.5 mg PO BID tab 03/31/23 ALPRAZolam [Xanax] 0.25 mg PO HS PRN 10/30/23 Albuterol Inhaler [Ventolin Hfa Inhaler] 1 - 2 puff INHALATION Q6H PRN 10/30/23 Finasteride [Proscar] 5 mg PO DAILY 10/30/23 Metoprolol Tartrate [Lopressor] 25 mg PO BID 10/30/23 Midodrine [ProAmatine] 5 mg PO 1700 PRN 10/30/23 Midodrine [ProAmatine] 10 mg PO BID 10/30/23 Slo Mag (Unk) 1 tab PO DAILY 10/30/23 diphenhydrAMINE HCL [Benadryl] 25 - 50 mg PO HS PRN 10/30/23 methocarbamoL [Robaxin] 250 mg PO TID 10/30/23 predniSONE [Deltasone] 0 mg PO DIRECTED 10/30/23 Controlled Substance Measures - Controlled Substance Measures Is patient prescribed a controlled substance at discharge?: Yes When asked, does pt state using other controlled substances?: Yes If prescribed controlled substance>3 days was MAPS reviewed?: Yes If Rx opioid, was Start Talking consent form obtained?: Yes Was information provided regarding opioid addiction?: Yes
== END ==
LOC: PNWHC3 14:12
PROVIDERS: ATTEND Specialist
DX: M47.812 Spondylosis without myelopathy or radiculopathy, cervical region (principal); Z88.8 Allergy status to other drugs, medicaments and biological substances; Z88.0 Allergy status to penicillin
CPT/HCPCS: 99211

== ENCOUNTER → 2024-02-17 | Outpatient (CLI) | payer MEDICARE ==
[2024-02-18 02:46] LABS: Basophils # (A) 0.07 X 10*3/uL (0.00-0.10); Basophils % (A) 0.7 %; Eosinophils # (A) 0.16 X 10*3/uL (0.04-0.35); Eosinophils % (A) 1.6 %; HCT 42.6 % (39.6-50.0); HGB 12.4 g/dL (13.0-17.0); Lymphocytes # (A) 0.75 X 10*3/uL (0.90-5.00); Lymphocytes % (A) 7.7 %; MCH 24.1 pg (27.0-32.0); MCHC 29.1 g/dL (32.0-37.0); MCV 82.9 FL (80.0-97.0); Mean Platelet Volume 9.4 FL (9.5-12.2); Monocytes # (A) 1.15 X 10*3/uL (0.20-1.00); Monocytes % (A) 11.8 %; NRBC Per 100 WBC 0 X 10*3/uL (0.00-0.01); Neutrophils # (A) 7.57 X 10*3/uL (1.80-7.70); Neutrophils % (A) 77.7 %; Platelet Count 266 X 10*3/uL (140-440); RBC 5.14 X 10*6/uL (4.40-5.60); WBC 9.75 X 10*3/uL (4.50-10.00)
[2024-02-18 03:36] LABS: BUN/Creat Ratio 20.44 Ratio (12.00-20.00); Blood Urea Nitrogen 18.4 mg/dL (9.0-27.0); Chloride 96 mmol/L (96-109); Glucose 94 mg/dL (70-110); Potassium 5.4 mmol/L (3.5-5.5); Sodium 132 mmol/L (135-145)
[2024-02-18 03:37] LABS: ALT 19 U/L (10-49); AST 26 U/L (14-35); Albumin 4.7 g/dL (3.8-4.9); Albumin/Globulin Ratio 1.74 Ratio (1.60-3.17); Alkaline Phosphatase 91 U/L (41-126); Calcium 9.7 mg/dL (8.7-10.3); Carbon Dioxide 24.3 mmol/L (21.6-31.8); Globulin 2.7 g/dL (1.6-3.3); Prostate Specific Antigen 4.01 ng/mL (0.000-6.500); Total Bilirubin 0.7 mg/dL (0.3-1.2); Total Protein 7.4 g/dL (6.2-8.2)
[2024-02-18 04:19] LABS: Testosterone >1400.00 ng/dL (86.98-780.10)
== END | disposition home or self-care (01) ==
LOC: LABWHC1 15:01
PROVIDERS: ATTEND Internal Medicine Endocrinology, Diabetes & Metabolism
DX: E03.8 Other specified hypothyroidism (principal); E29.1 Testicular hypofunction; R18.8 Other ascites
CPT/HCPCS: 36415; 80053; 84153; 84403; 84443; 85025

== ENCOUNTER → 2024-04-25 | Outpatient (CLI) | payer MEDICARE ==
[2024-04-25 13:07] VITALS: BP 133/79; PULSE 56; RESP 19
--- NOTE | 2024-04-25 15:12 | P.PAINPG ---
PQRS Measure Charge Sheet Comment: HISTORY OF PRESENT ILLNESS: A 68 yr old wheelchair bound male w at side presents today w severe and chronic neck and LBP secondary to radiculpathy, spondylosis and facet arthropathy without myelopathy for evaluation s/p WINSOME C6-C7 #1. Pt states he experienced 60 % pain relief x 10 mo s/p procedure. Pt states pain level is provoked at 8 /10 in intensity, constant, localized in the lumbar spine , achy in character w shooting pain towards the BLEs. Pain is provoked by weight bearing. Pain is alleviated by medications , topical, ice, heat, PT x 6 wks which ended in December 2022 (cervical), chiropractic treatments semi yearly w last visit in Fall 2021, use of a walker for ambulatory assistance, repositioning and rest. Interventional procedures include L5-S1 ALIF, L4-L5 posteriolateral/ interbody fusion, WINSOME C6-C7 x1 Medications include Advil, Ibu, Tyl REVIEW OF ORGAN SYSTEMS: CONSTITUTIONAL: No fevers or chills. No recent weight loss. NEUROLOGICAL: + numbness and tingling along the distal extremities. No seizure disorders or headaches. MUSCULOSKELETAL: + pain PSYCHIATRIC: Denies current depression or suicidal thoughts. Physical Examinations : Constitutional : Cooperative , not in acute distress . Neurologic : Cranial nerve II to XII intact. No focal neurological deficits. Psychiatric : alert & oriented x 3. Matching mood & appropriate affect. Judgment & insight intact. Musculoskeletal : Cervical Spine Motor strength in the deltoid and biceps: Normal right side. Normal Left side Motor strength biceps and the wrist extensors: Normal right side . Normal left side Motor strength in the triceps muscle: Normal right side. Normal left side Deep tendon reflexes: Normal at the biceps. Normal at Brachioradialis. Normal at triceps Vertebral body tenderness to deep palpation over C6 Cervical facet loading test: positive bilaterally Spurling test: positive L > R Neck distraction test: positive bilaterally Ching sign: positive bilaterally Lumbar spine Motor strength lower extremities ,thigh and legs 5/5 Right side , 5/5 Left side Deep tendon reflexes : Normal Knee Jerk. Normal Ankle Jerk Vertebral body tenderness over Diaz Test positive Lumbar facet Loading Test: positive Right / positive Left Range of motion of the lumbar spine Flexion 30 degrees, extension 10 degrees Straight Leg Raise test: Left/ Right positive at degree Boone test: positive right / positive left. Severe tenderness over the Sacroiliac joint on the Right / Left sides Gaenslen test: positive bilaterally Seated flexion test: positive bilaterally. Sacral spine : Severe tenderness over the Sacroiliac joint: right side / left side Range of motion: Flexion of the lumbar spine <60 degrees Range of motion: Extension of the lumbar spine <20 degrees Gaenslen's Test positive Ac's Test positive Boone test: positive right side / left side Thigh Thrust Test Sacral Thrust Test Imaging: MRI non contrast of the cervical spine from 11/26/22 reviewed Assessment/ Plan : Cervical spondylosis, L5-S1 ALIF post laminectomy syndrome Recommendation of medication management, lumbar x ray and physician guided HEP exercise program M54.16. Opiate/ narcotic agreement signed 02/17/24. MS ER 15mg #60 w 1 RF. Use, side effects, adverse reactions, safe storage discussed. All questions answered. I have spent greater than 30 minutes on patient care today. Dr Rodriguez was available by phone for the evaluation of this patient. The time was used to review the medical records including relevant urine studies and Prescription history (MAPs), review of the available imaging, evaluation and examination of the patient, coordination of care with the medical staff and if applicable referring physicians, as well as creation of the medical record - Pain Location Back Pharmacological Interventions: PRN Medication PQRS Narrative: Hx Alcohol Use (MH) Yes: 3X WEEKLY Home Medications: Ambulatory Orders Acetaminophen Tab [Tylenol] 1,000 mg PO Q6H PRN 01/12/23 Cetirizine HCl [Zyrtec] 10 mg PO DAILY 01/12/23 Ergocalciferol [Vitamin D2 (1250 Mcg = 10233 Iu)] 1,250 mcg PO WE 01/12/23 Fluticasone Nasal [place] [Flonase Nasal [place]] 1 spray EA NOSTRIL DAILY 01/12/23 Levothyroxine Sodium [Synthroid] 264 mcg PO QAM 01/12/23 Magnesium 250 mg PO DAILY PRN 01/12/23 Pantoprazole [Protonix] 40 mg PO QAM 01/12/23 Sertraline [Zoloft] 100 mg PO QAM 01/12/23 Alpha Lipoic Acid 1,200 mg PO DAILY 02/24/23 Lipo Falvinoid(Unk) 2 tab PO DAILY 02/24/23 Salt Tab(Unk) 1 - 2 tab PO DIRECTED PRN 02/24/23 Testosterone Cypionate [Depo-Testosterone] 100 mg IM AMBRIZ 02/24/23 Apixaban [Eliquis] 2.5 mg PO BID tab 03/31/23 ALPRAZolam [Xanax] 0.25 mg PO HS PRN 10/30/23 Albuterol Inhaler [Ventolin Hfa Inhaler] 1 - 2 puff INHALATION Q6H PRN 10/30/23 Finasteride [Proscar] 5 mg PO DAILY 10/30/23 Metoprolol Tartrate [Lopressor] 25 mg PO BID 10/30/23 Midodrine [ProAmatine] 5 mg PO 1700 PRN 10/30/23 Midodrine [ProAmatine] 10 mg PO BID 10/30/23 Slo Mag (Unk) 1 tab PO DAILY 10/30/23 diphenhydrAMINE HCL [Benadryl] 25 - 50 mg PO HS PRN 10/30/23 methocarbamoL [Robaxin] 250 mg PO TID 10/30/23 predniSONE [Deltasone] 0 mg PO DIRECTED 10/30/23 Morphine Sulfate ER [Ms Contin] 15 mg PO BID 30 Days #60 tab 04/13/24 Morphine Sulfate ER [Ms Contin] 15 mg PO BID 30 Days #60 tab 04/25/24 Morphine Sulfate ER [Ms Contin] 15 mg PO Q12HR 30 Days #60 tab 04/25/24 Controlled Substance Measures - Controlled Substance Measures Is patient prescribed a controlled substance at discharge?: Yes When asked, does pt state using other controlled substances?: Yes If prescribed controlled substance>3 days was MAPS reviewed?: Yes
== END ==
LOC: PNWHC3 12:41
PROVIDERS: ATTEND Specialist
DX: M54.12 Radiculopathy, cervical region
CPT/HCPCS: 99211

== ENCOUNTER → 2024-05-09 | Outpatient (CLI) | payer MEDICARE ==
[2024-05-09 15:35] LABS: HGB 14.5 g/dL (13.0-17.0); MCH 27.2 pg (27.0-32.0); MCHC 30.9 g/dL (32.0-37.0); MCV 88.2 FL (80.0-97.0); Mean Platelet Volume 9.3 FL (9.5-12.2); Platelet Count 192 X 10*3/uL (140-440); RBC 5.33 X 10*6/uL (4.40-5.60); RDW 20.1 % (11.5-14.5)
[2024-05-09 15:36] LABS: Basophils # (A) 0.07 X 10*3/uL (0.00-0.10); Basophils % (A) 1.1 %; Eosinophils # (A) 0.17 X 10*3/uL (0.04-0.35); Eosinophils % (A) 2.6 %; Lymphocytes # (A) 0.95 X 10*3/uL (0.90-5.00); Lymphocytes % (A) 14.6 %; Monocytes # (A) 0.85 X 10*3/uL (0.20-1.00); Monocytes % (A) 13.1 %; NRBC Per 100 WBC 0 X 10*3/uL (0.00-0.01); Neutrophils # (A) 4.44 X 10*3/uL (1.80-7.70); Neutrophils % (A) 68.3 %
[2024-05-09 15:55] LABS: BUN/Creat Ratio 15.46 Ratio (12.00-20.00); Blood Urea Nitrogen 20.1 mg/dL (9.0-27.0); Calcium 9.2 mg/dL (8.7-10.3); Carbon Dioxide 23.9 mmol/L (21.6-31.8); Chloride 94 mmol/L (96-109); Glucose 105 mg/dL (70-110); Potassium 4.7 mmol/L (3.5-5.5); Sodium 131 mmol/L (135-145)
== END | disposition home or self-care (01) ==
LOC: LABPAT 11:39
PROVIDERS: ATTEND Urology
DX: Z01.818 Encounter for other preprocedural examination
CPT/HCPCS: 36415; 80048; 85025

== ENCOUNTER 2024-05-17 10:05 | Day surgery (SDC) | payer MEDICARE ==
[~2024-05-17 10:05] MED LIST: HYDROmorphone 0.5 MG/0.5 ML SYRINGE IVP PRN; MIDAZOLAM 2 MG/2 ML VIAL IV PRN
--- NOTE | 2024-05-17 10:23 | P.HPIHPCON ---
History of Present Illness H&P Date: 05/17/24 Chief Complaint: Urinary retention, BPH This is a 68-year-old male with history of urinary retention, has failed multiple trial voids. Underwent a cystoscopy that showed evidence of an obstructive prostate, urodynamics did show evidence of bladder stone. Discussed with him option of a TURP. Aware the risk which includes but not limited to bleeding, infection, urinary incontinence, persistent retention. Risk of retrograde ejaculation and medical complication from surgery was also discussed. Discussed that he is at a higher risk of medical complication given his comorbidities. He understood all the risk and agreed to proceed Consent for Procedure: I have explained the operation/procedure to the patient, including the risks, benefits, side effects, alternative therapies (including not receiving the proposed treatment or service), the likelihood of the patient achieving his/her goals, and potential recuperation problems for the procedure/sedation/analgesia, as well as any blood products, if indicated. I also explained to the patient the risks, benefits and side effects of the alternatives, as well as the risks related to not receiving the proposed procedure, care, treatment, or services. Past Medical History Past Medical History: Atrial Fibrillation, Cancer, Heart Failure, CVA/TIA, GERD/Reflux, Hypertension, Myocardial Infarction ([place]), Pneumonia, Prostate Disorder, Syncope, Thyroid Disorder Additional Past Medical History / Comment(s): lymphoma x 2, port in right chest. completing tx for UTI to finish abx 05/15/24, bilateral pneumonia - MRSA 2022. ileus x2. pneumonia 03/18/23 on vent. urinary retention current IDC. postural hypotension. bph, hx mantle cell lymphoma.( HFH chemo Last 2018) ? stroke after being on vent left leg weakness. hx of elevated liver enzymes normal now. hx tachycardia per . Last Myocardial Infarction Date:: 03/2023 History of Any Multi-Drug Resistant Organisms: MRSA Date of last positivie culture/infection: 03/2023 MDRO Source:: lungs 2022 per specimen, colonized previously per swab. Past Surgical History: Adenoidectomy, Cholecystectomy, Hernia Repair, Tonsillectomy Additional Past Surgical History / Comment(s): Biopsies with Lymphoma, ports placed and removed X2, third port placed and remains in place, central line for chemo,(rt subclavian) fusion of left little finger, bilateral cataracts removed, [facility] Procedure. cardioversion 12/09/23 Past Anesthesia/Blood Transfusion Reactions: No Reported Reaction Additional Past Anesthesia/Blood Transfusion Reaction / Comment(s): Daughter wakes up goofy. Smoking Status: Never smoker - Past Family History Father Family Medical History: Cancer Additional Family Medical History / Comment(s): prostate with mets to bone Sister(s) Family Medical History: Cancer Additional Family Medical History / Comment(s): breast Brother(s) Family Medical History: Cancer Additional Family Medical History / Comment(s): prostate Medications and Allergies Home Medications Medication Instructions Recorded Confirmed Type Acetaminophen Tab [Tylenol] 500 mg PO Q6H PRN 01/12/23 05/11/24 History Cetirizine HCl [Zyrtec] 10 mg PO DAILY 01/12/23 05/11/24 History Ergocalciferol [Vitamin D2 (1250 1,250 mcg PO WE 01/12/23 05/11/24 History Mcg = 21862 Iu)] Fluticasone Nasal [place] [Flonase 2 spray EA NOSTRIL DAILY 01/12/23 05/11/24 History Nasal [place]] Magnesium 250 mg PO DAILY 01/12/23 05/11/24 History Pantoprazole [Protonix] 40 mg PO QAM 01/12/23 05/11/24 History Sertraline [Zoloft] 50 mg PO QAM 01/12/23 05/11/24 History Salt Tab(Unk) 1 - 2 tab PO DIRECTED PRN 02/24/23 05/11/24 History Testosterone Cypionate 100 mg IM AMBRIZ 02/24/23 05/11/24 History [Depo-Testosterone] ALPRAZolam [Xanax] 0.25 mg PO HS PRN 10/30/23 05/11/24 History Finasteride [Proscar] 5 mg PO DAILY 10/30/23 05/11/24 History Metoprolol Tartrate [Lopressor] 12.5 mg PO BID 10/30/23 05/11/24 History Midodrine [ProAmatine] 5 mg PO BID 10/30/23 05/11/24 History Midodrine [ProAmatine] 10 mg PO 1300 PRN 10/30/23 05/11/24 History methocarbamoL [Robaxin] 500 mg PO TID PRN 10/30/23 05/11/24 History Morphine Sulfate ER [Ms Contin] 15 mg PO BID 30 Days #60 tab 04/13/24 05/11/24 Rx Unk Vitamin C 1 tab PO DAILY 05/11/24 05/11/24 History Unk Culturelle 1 tab PO DAILY 05/11/24 05/11/24 History Apixaban [Eliquis] 5 mg PO BID 05/11/24 05/11/24 History Ciprofloxacin HCl [Cipro] 500 mg PO BID 05/11/24 05/11/24 History Ferrous Sulfate [Iron] 325 mg PO DAILY 05/11/24 05/11/24 History Furosemide [Lasix] 20 mg PO DAILY 05/11/24 05/11/24 History Furosemide [Lasix] 20 ng PO DIRECTED PRN 05/11/24 05/11/24 History Gabapentin 300 mg PO TID 05/11/24 05/11/24 History Levothyroxine Sodium [Synthroid] 274 mcg PO DAILY 05/11/24 05/11/24 History Losartan Potassium 12.5 mg PO DAILY 05/11/24 05/11/24 History Potassium Chloride [K-Tab ER] 10 meq PO BID 05/11/24 05/11/24 History Unk B Complex 1 tab PO DAILY 05/11/24 05/11/24 History Unk Gas X 1 tab PO DIRECTED PRN 05/11/24 05/11/24 History Unk Tums 1 tab PO DIRECTED PRN 05/11/24 05/11/24 History ondansetron HCL [Ondansetron HCl] 8 mg PO DIRECTED PRN 05/11/24 05/11/24 History polyethylene glycoL 3350 [Miralax] 17 gm PO DAILY PRN 05/11/24 05/11/24 History Allergies Allergy/AdvReac Type Severity Reaction Status Date / Time AAYUSH Inhibitors Allergy Swelling Verified 05/11/24 12:34 amoxicillin Allergy Rash/Hives Verified 05/11/24 12:34 fentanyl AdvReac Unknown Verified 05/11/24 12:34 [id number]-VlZ Reductase AdvReac Elevates Verified 05/11/24 12:34 Inhibitor Liver Enzymes senekot Allergy Hallucinati Uncoded 05/11/24 12:34 ons Surgical - Exam - General no distress, no pain - Eyes normal ocular movement, no pale - ENT normal nares, normal mucosa - Respiratory normal expansion, normal respiratory effort - Abdomen Abdomen: soft, non tender - Psychiatric oriented to time, oriented to person, oriented to place Assessment and Plan Assessment: OR for TURP
[2024-05-17] MEDS: LACTATED RINGERS 1,000 ML IV SCH (10:43)
[2024-05-17] MEDS: ONDANSETRON 4 MG/2 ML VIAL IVP ONE (10:45)
[2024-05-17] MEDS: DEXAMETHASONE SOD PHOSPHATE 4 MG/ML 1 ML VIAL IV ONE (10:45)
[2024-05-17] MEDS: IV FLUID CONTINUATION 1,000 ML IV ONE ×2 (10:48→13:57)
[2024-05-17] MEDS ORDERED: SUCCINYLCHOLINE CHLORIDE 200 MG/10 ML VIAL IV ONE (12:24)
[2024-05-17] MEDS ORDERED: MIDAZOLAM 2 MG/2 ML VIAL ONE (12:24)
[2024-05-17] MEDS ORDERED: PROPOFOL 10 MG/ML 20 ML VIAL IV ONE (12:24)
[2024-05-17] MEDS ORDERED: HYDROmorphone (PF) 1 MG/ML ONE (12:24)
[2024-05-17] MEDS ORDERED: KETAMINE HCL IN 0.9 % NACL 50 MG/5 ML SYRINGE ONE (12:24)
[2024-05-17] MEDS ORDERED: ePHEDrine 50 MG/ML 1 ML VIAL ONE (12:24)
[2024-05-17] MEDS: GENTAMICIN 120 MG in SODIUM CHLORIDE 0.9% 100 ML IVPB PRN (12:29)
[2024-05-17] MEDS: CIPROFLOXACIN/DEXTROSE PMX 400 MG in DEXTROSE/WATER 1 200ML.BAG IVPB PRN (12:40)
[2024-05-17 14:06] VITALS: TEMP 98.2
--- NOTE | 2024-05-17 14:25 | P.OP ---
Date of Procedure: 05/17/24 Preoperative Diagnosis: BPH Postoperative Diagnosis: Same Procedure(s) Performed: Transurethral resection of the prostate (bipolar) Implants: None Anesthesia: KEENANA Surgeon: Baltazar Toledo Estimated Blood Loss (ml): 100 Pathology: other (prostate adenoma) Condition: stable Disposition: PACU Indications for Procedure: This is a 68-year-old male with history of urinary retention, has failed multiple trial voids. Underwent a cystoscopy that showed evidence of an obstructive prostate, urodynamics did show evidence of bladder stone. Discussed with him option of a TURP. Aware the risk which includes but not limited to bleeding, infection, urinary incontinence, persistent retention. Risk of retrograde ejaculation and medical complication from surgery was also discussed. Discussed that he is at a higher risk of medical complication given his karson rbidities. He understood all the risk and agreed to proceed Description of Procedure: Patient brought to the operating room, general anesthesia was induced. He was prepped and draped in sterile fashion and placed in a dorsal time position. Resectoscope fitted with a 25 Samoan sheath was inserted per urethra cystoscopy was performed which showed trilobar hyperplasia with an occlusive prostate. The bladder was moderately trabeculated and no abnormality was seen within the bladder. Using the bipolar resectoscope the prostate was resected down to the surgical capsule, resection was started distal to the bladder neck and staying proximal to the Veru. Points of bleeding was controlled with cautery, at this point all prostate adenoma was irrigated out, repeat cystoscopy showed a an open prostate fossa, there was no injury to the ureteral orifice ease or evidence of capsular perforation. At this point the resectoscope was withdrawn and a 22 Samoan Freeman was placed with the return of clear urine. The catheter was inflated to 30 cc. Patient tolerated procedure well sent recovery in stable condition
[2024-05-17 15:20] VITALS: BP 142/83; PULSE 64; RESP 16
== END 2024-05-17 16:01 | disposition home or self-care (01) ==
LOC: OR 10:05
PROVIDERS: ATTEND Urology
DX: N40.1 Benign prostatic hyperplasia with lower urinary tract symptoms
CPT/HCPCS: 88305; 88341; 88342; 88344

== ENCOUNTER → 2024-06-13 | Outpatient (CLI) | payer MEDICARE ==
[2024-06-13 11:36] VITALS: BP 167/93; PULSE 64; RESP 16
--- NOTE | 2024-06-13 14:36 | P.PAINPG ---
PQRS Measure Charge Sheet Comment: HISTORY OF PRESENT ILLNESS: A 68 yr old wheelchair bound male w at side presents today w severe and chronic neck and LBP secondary to radiculpathy, spondylosis and facet arthropathy without myelopathy, L4-L5 ALIF for evaluation. Pt states pain level is provoked at 8 /10 in intensity, constant, localized in the lumbar spine , achy in character w shooting pain towards the BLEs. Pain is provoked by weight bearing. Pain is alleviated by medications , topical, ice, heat, PT x 6 wks which ended in December 2022 (cervical), PT x 8 wks (lumbar) which ended in May 2024, physician guided stretching regimen daily since May 2024 (cervical, lumbar), use of a walker for ambulatory assistance, repositioning and rest. Interventional procedures include L4-L5 posteriolateral/ interbody fusion, WINSOME C6-C7 x1 Medications include Advil, Ibu, Tyl REVIEW OF ORGAN SYSTEMS: CONSTITUTIONAL: No fevers or chills. No recent weight loss. NEUROLOGICAL: + numbness and tingling along the distal extremities. No seizure disorders or headaches. MUSCULOSKELETAL: + pain PSYCHIATRIC: Denies current depression or suicidal thoughts. Physical Examinations : Constitutional : Cooperative , not in acute distress . Neurologic : Cranial nerve II to XII intact. No focal neurological deficits. Psychiatric : alert & oriented x 3. Matching mood & appropriate affect. Judgment & insight intact. Musculoskeletal : Cervical Spine Motor strength in the deltoid and biceps: Normal right side. Normal Left side Motor strength biceps and the wrist extensors: Normal right side . Normal left side Motor strength in the triceps muscle: Normal right side. Normal left side Deep tendon reflexes: Normal at the biceps. Normal at Brachioradialis. Normal at triceps Vertebral body tenderness to deep palpation over C6 Cervical facet loading test: positive bilaterally Spurling test: positive L > R Neck distraction test: positive bilaterally Ching sign: positive bilaterally Lumbar spine Motor strength lower extremities ,thigh and legs 5/5 Right side , 5/5 Left side Deep tendon reflexes : Normal Knee Jerk. Normal Ankle Jerk Vertebral body tenderness over L1 Diaz Test positive L1-L2 Lumbar facet Loading Test: positive Right / positive Left Range of motion of the lumbar spine Flexion 30 degrees, extension 10 degrees Straight Leg Raise test: Left/ Right positive at degree Boone test: positive right / positive left. Severe tenderness over the Sacroiliac joint on the Right / Left sides Gaenslen test: positive bilaterally Seated flexion test: positive bilaterally. Sacral spine : Severe tenderness over the Sacroiliac joint: right side / left side Range of motion: Flexion of the lumbar spine <60 degrees Range of motion: Extension of the lumbar spine <20 degrees Gaenslen's Test positive Ac's Test positive Boone test: positive right side / left side Thigh Thrust Test Sacral Thrust Test Imaging: MRI non contrast of the cervical spine from 11/26/22 reviewed MRI non contrast of the lumbar spine from 11/26/22 reviewed Assessment/ Plan : Cervical spondylosis, L4-L5 ALIF post laminectomy syndrome Recommendation of WINSOME L1-L2 #1. Risks, benefits of procedure discussed and pt verbalized understanding. Protocol for discontinuation/ continuation of medications rhett procedure discussed. Opiate/ narcotic agreement signed 02/17/24. MS ER 15mg #60 w 1 RF. Use, side effects, adverse reactions, safe storage discussed. All questions answered. I have spent greater than 30 minutes on patient care today. Dr Rodriguez was available by phone for the evaluation of this patient. The time was used to review the medical records including relevant urine studies and Prescription history (MAPs), review of the available imaging, evaluation and examination of the patient, coordination of care with the medical staff and if applicable referring physicians, as well as creation of the medical record PQRS Narrative: Hx Alcohol Use (MH) Yes: 3X WEEKLY Home Medications: Ambulatory Orders Acetaminophen Tab [Tylenol] 500 mg PO Q6H PRN 01/12/23 Cetirizine HCl [Zyrtec] 10 mg PO DAILY 01/12/23 Ergocalciferol [Vitamin D2 (1250 Mcg = 72703 Iu)] 1,250 mcg PO WE 01/12/23 Fluticasone Nasal [place] [Flonase Nasal [place]] 2 spray EA NOSTRIL DAILY 01/12/23 Magnesium 250 mg PO DAILY 01/12/23 Pantoprazole [Protonix] 40 mg PO QAM 01/12/23 Sertraline [Zoloft] 50 mg PO QAM 01/12/23 Salt Tab(Unk) 1 - 2 tab PO DIRECTED PRN 02/24/23 Testosterone Cypionate [Depo-Testosterone] 100 mg IM AMBRIZ 02/24/23 ALPRAZolam [Xanax] 0.25 mg PO HS PRN 10/30/23 Finasteride [Proscar] 5 mg PO DAILY 10/30/23 Metoprolol Tartrate [Lopressor] 12.5 mg PO BID 10/30/23 Midodrine [ProAmatine] 5 mg PO BID 10/30/23 Midodrine [ProAmatine] 10 mg PO 1300 PRN 10/30/23 methocarbamoL [Robaxin] 500 mg PO TID PRN 10/30/23 Morphine Sulfate ER [Ms Contin] 15 mg PO BID 30 Days #60 tab 04/13/24 Unk Vitamin C 1 tab PO DAILY 05/11/24 Unk Culturelle 1 tab PO DAILY 05/11/24 Apixaban [Eliquis] 5 mg PO BID 05/11/24 Ciprofloxacin HCl [Cipro] 500 mg PO BID 05/11/24 Ferrous Sulfate [Iron] 325 mg PO DAILY 05/11/24 Furosemide [Lasix] 20 mg PO DAILY 05/11/24 Furosemide [Lasix] 20 ng PO DIRECTED PRN 05/11/24 Gabapentin 300 mg PO TID 05/11/24 Levothyroxine Sodium [Synthroid] 274 mcg PO DAILY 05/11/24 Losartan Potassium 12.5 mg PO DAILY 05/11/24 Potassium Chloride [K-Tab ER] 10 meq PO BID 05/11/24 Unk B Complex 1 tab PO DAILY 05/11/24 Unk Gas X 1 tab PO DIRECTED PRN 05/11/24 Unk Tums 1 tab PO DIRECTED PRN 05/11/24 ondansetron HCL [Ondansetron HCl] 8 mg PO DIRECTED PRN 05/11/24 polyethylene glycoL 3350 [Miralax] 17 gm PO DAILY PRN 05/11/24 Phenazopyridine HCl [Pyridium] 100 mg PO TID #6 tab 05/17/24 Controlled Substance Measures - Controlled Substance Measures Is patient prescribed a controlled substance at discharge?: No
== END ==
LOC: PNWHC3 11:04
PROVIDERS: ATTEND Specialist
DX: M47.812 Spondylosis without myelopathy or radiculopathy, cervical region (principal); M96.1 Postlaminectomy syndrome, not elsewhere classified; M43.27 Fusion of spine, lumbosacral region; Z88.0 Allergy status to penicillin; Z88.8 Allergy status to other drugs, medicaments and biological substances
CPT/HCPCS: 99211

== ENCOUNTER 2024-06-30 11:57 | Day surgery (SDC) | payer MEDICARE ==
[2024-06-29 12:03] VITALS: BMI 27.3
[2024-06-30 12:50] VITALS: RESP 16; TEMP 97.5
[2024-06-30] MEDS ORDERED: LACTATED RINGERS 1,000 ML IV SCH (13:00)
[2024-06-30] MEDS ORDERED: IOPAMIDOL M200 10 ML VIAL ONE (13:51)
[2024-06-30] MEDS ORDERED: methylPREDNISolone ACETATE 40 MG/ML 1 ML VIAL ONE (13:51)
--- NOTE | 2024-06-30 13:59 | P.PCN ---
Date of Procedure: 06/30/24 Procedure(s) Performed: PREOPERATIVE DIAGNOSIS: 1- Lumbar postlaminectomy pain syndrome 2-Lumbar radiculopathy POSTOPERATIVE DIAGNOSIS: same As preop diagnosis PROCEDURE 1. Lumbar epidural steroid injection under fluoroscopic guidance at the L1-2 level. (Fluoroscopy imaging was available in radiology department) 2. Lumbar epidurogram. ANESTHESIA: Lidocaine 1% 3 and then only. EBL: Minimal PROCEDURE INDICATION: The patient with low back pain and radiculitis symptoms unresponsive to conservative treatment. Fluoroscopy was used to optimize visualization of the needle placement and to maximize safety. PROCEDURE DESCRIPTION / TECHNIQUE: The patient was seen and identified in the preoperative area. Risks, benefits, complications including but not limited to infections ,bleeding ,allergic reaction to the medications ,nerve damage and not complete pain releife , and alternatives were discussed with the patient. The patient agreed to proceed with the procedure and signed the consent, and vital signs were stable. Patient was taken to the OR and time out was completed. The patient was placed in the prone position on procedure table and a pillow was placed under the abdomen to reduce lumbar lordosis. The lumbosacral area was prepped and draped in the usual sterile fashion.ere closely monitored during the procedure. Vital signs was monitered during the entire procedure. Using anterior-posterior fluoroscopy, the L1-2 interlaminar space was identified and the skin over this site was marked and then infiltrated with 1% lidocaine subcutaneously. Subsequently, a 20-gauge Tuohy epidural needle was inserted and advanced toward the epidural space using the ``Loss of resistance technique and guided by AP and lateral fluoroscopy. The correct needle position in the epidural space was verified with the injection of 2 mL of the water soluble contrast dye Isovue 200 contrast and observing an excellent epidurogram with the epidural spread of the dye, after negative aspiration for blood and CSF and in the absence of paresthesias. Again after negative aspiration, a 5 ml mixture containing 40 mg of Depo-medrol ( Preservetive Free ), and 2 ml of preservative free Normal Saline, and 2 ml of preservative free lidocaine 1% solution was injected and a washout of epidurogram was seen. Needle was withdrawn intact, skin was cleansed, and bandages were applied. COMPLICATIONS: None DISPOSITION / PLANS: The patient was placed in a supine position and transferred to the recovery area in a stable condition for observation. There was no evidence of lower extremity motor or sensory deficit after the procedure. Patient was discharged from the recovery room after meeting discharge criteria. Home discharge instructions were given to the patient by the staff. The patient was reexamined prior to discharge. The patient will schedule a follow up in the clinic in 2-4 weeks. last does of ELIQUIS taken more than 72 hours
[2024-06-30 14:07] VITALS: BP 132/82; PULSE 65
--- NOTE | 2024-06-30 15:43 | FL ---
EXAMINATION TYPE: FL guided pain mgmt statistic DATE OF EXAM: 06/30/2024 2:02 PM COMPARISON: Pre Operative Images if available both CT/MRI or plain film CLINICAL INDICATION: Male, 68 years old with history of PAIN; TECHNIQUE: FL guided pain mgmt statistic, multiple fluoroscopic images provided for procedure. Total fluoroscopy time: 18 seconds Total submitted images to PACS: 1 DAP: [id number] mGym2 Gycm2 uGym2 cGycm2 or equivalent. FINDINGS: Fluoroscopic images during injection for pain management demonstrate multilevel degeneration changes throughout the spine. No evidence for fracture. No acute process identified. IMPRESSION: 1. No evidence for intraoperative complication. 2. Please see the operative/procedural note for further details. [facility], , 06/30/2024 3:41 PM
== END 2024-06-30 14:18 | disposition home or self-care (01) ==
LOC: ORPAIN 11:57
PROVIDERS: ATTEND Specialist
DX: M96.1 Postlaminectomy syndrome, not elsewhere classified (principal); M54.16 Radiculopathy, lumbar region
CPT/HCPCS: 62323; Q9966; J1010

== ENCOUNTER → 2024-07-04 | Outpatient (CLI) | payer MEDICARE ==
[2024-07-04 13:05] VITALS: BP 135/86; PULSE 63; RESP 16; TEMP 97.3
--- NOTE | 2024-07-04 16:50 | P.PAINPG ---
PQRS Measure Charge Sheet Comment: HISTORY OF PRESENT ILLNESS: A 68 yr old wheelchair bound male w at side presents today w severe and chronic neck and LBP secondary to radiculpathy, spondylosis and facet arthropathy without myelopathy, L4-L5 ALIF for medication refills. He recently had a WINSOME L1-L2 #1 procedure. Pt states pain level is provoked at 5 /10 in intensity, constant, localized in the lumbar spine , achy in character w occasional shooting pain towards the BLEs. Pain is provoked by weight bearing. Pain is alleviated by medications , topical, ice, heat, PT x 6 wks which ended in December 2022 (cervical), PT x 8 wks (lumbar) which ended in May 2024, physician guided stretching regimen daily since May 2024 (cervical, lumbar), use of a walker for ambulatory assistance, repositioning and rest. Interventional procedures include L4-L5 posteriolateral/ interbody fusion, WINSOME C6-C7 x1, WINSOME L1-L2 x1 Medications include Advil, Ibu, Tyl REVIEW OF ORGAN SYSTEMS: CONSTITUTIONAL: No fevers or chills. No recent weight loss. NEUROLOGICAL: + numbness and tingling along the distal extremities. No seizure disorders or headaches. MUSCULOSKELETAL: + pain PSYCHIATRIC: Denies current depression or suicidal thoughts. Physical Examinations : Constitutional : Cooperative , not in acute distress . Neurologic : Cranial nerve II to XII intact. No focal neurological deficits. Psychiatric : alert & oriented x 3. Matching mood & appropriate affect. Judgment & insight intact. Musculoskeletal : Cervical Spine Motor strength in the deltoid and biceps: Normal right side. Normal Left side Motor strength biceps and the wrist extensors: Normal right side . Normal left side Motor strength in the triceps muscle: Normal right side. Normal left side Deep tendon reflexes: Normal at the biceps. Normal at Brachioradialis. Normal at triceps Vertebral body tenderness to deep palpation over C6 Cervical facet loading test: positive bilaterally Spurling test: positive L > R Neck distraction test: positive bilaterally Ching sign: positive bilaterally Lumbar spine Motor strength lower extremities ,thigh and legs 5/5 Right side , 5/5 Left side Deep tendon reflexes : Normal Knee Jerk. Normal Ankle Jerk Vertebral body tenderness over L1 Diaz Test positive L1-L2 Lumbar facet Loading Test: positive Right / positive Left Range of motion of the lumbar spine Flexion 30 degrees, extension 10 degrees Straight Leg Raise test: Left/ Right p ositive at degree Boone test: positive right / positive left. Severe tenderness over the Sacroiliac joint on the Right / Left sides Gaenslen test: positive bilaterally Seated flexion test: positive bilaterally. Sacral spine : Severe tenderness over the Sacroiliac joint: right side / left side Range of motion: Flexion of the lumbar spine <60 degrees Range of motion: Extension of the lumbar spine <20 degrees Gaenslen's Test positive Ac's Test positive Boone test: positive right side / left side Thigh Thrust Test Sacral Thrust Test Imaging: MRI non contrast of the cervical spine from 11/26/22 reviewed MRI non contrast of the lumbar spine from 11/26/22 reviewed Assessment/ Plan : Cervical spondylosis, L4-L5 ALIF post laminectomy syndrome Recommendation of medication management. Will check UDS at next visit. Opiate/ narcotic agreement signed 02/17/24. MS ER 15mg #60 w 1 RF. Use, side effects, adverse reactions, safe storage discussed. All questions answered. I have spent greater than 30 minutes on patient care today. Dr Rodriguez was available by phone for the evaluation of this patient. The time was used to review the medical records including relevant urine studies and Prescription history (MAPs), review of the available imaging, evaluation and examination of the patient, coordination of care with the medical staff and if applicable referring physicians, as well as creation of the medical record - Pain Location Bilateral Lower Neck Non-Pharmacological Interventions: Heat, Home Exercise, Ice, Inactivity, Physical Therapy, Position/Reposition, Stretching Pharmacological Interventions: Epidural, PRN Medication, Scheduled Medication, Topical Medication PQRS Narrative: Hx Alcohol Use (MH) Yes: 3X WEEKLY Home Medications: Ambulatory Orders Acetaminophen Tab [Tylenol] 500 mg PO Q6H PRN 01/12/23 Cetirizine HCl [Zyrtec] 10 mg PO DAILY 01/12/23 Ergocalciferol [Vitamin D2 (1250 Mcg = 24247 Iu)] 1,250 mcg PO WE 01/12/23 Fluticasone Nasal [place] [Flonase Nasal [place]] 2 spray EA NOSTRIL DAILY 01/12/23 Magnesium 250 mg PO DAILY 01/12/23 Pantoprazole [Protonix] 40 mg PO QAM 01/12/23 Sertraline [Zoloft] 50 mg PO QAM 01/12/23 Salt Tab(Unk) 1 - 2 tab PO DIRECTED PRN 02/24/23 Testosterone Cypionate [Depo-Testosterone] 100 mg IM AMBRIZ 02/24/23 ALPRAZolam [Xanax] 0.25 mg PO BID 10/30/23 Metoprolol Tartrate [Lopressor] 12.5 mg PO BID 10/30/23 Midodrine [ProAmatine] 5 mg PO TID 10/30/23 methocarbamoL [Robaxin] 500 mg PO TID PRN 10/30/23 Apixaban [Eliquis] 5 mg PO BID 05/11/24 Ascorbic Acid [Vitamin C] 500 mg PO DAILY 05/11/24 Calcium Carbonate [Tums] 500 mg PO TID PRN 05/11/24 Ferrous Sulfate [Iron] 325 mg PO DAILY 05/11/24 Furosemide [Lasix] 20 mg PO DAILY 05/11/24 Furosemide [Lasix] 20 ng PO DIRECTED PRN 05/11/24 Gabapentin 300 mg PO TID 05/11/24 L.acidoph,Paracasei, B.lactis [Probiotic] 1 each PO DAILY 05/11/24 Levothyroxine Sodium [Synthroid] 274 mcg PO DAILY 05/11/24 Losartan Potassium 12.5 mg PO DAILY 05/11/24 Potassium Chloride [K-Tab ER] 10 meq PO BID 05/11/24 Simethicone [Gas-X] 125 mg PO DAILY PRN 05/11/24 ondansetron HCL [Ondansetron HCl] 8 mg PO DIRECTED PRN 05/11/24 polyethylene glycoL 3350 [Miralax] 17 gm PO DAILY 05/11/24 Vitamin B Complex 1 each PO DAILY 06/29/24 Morphine Sulfate ER [Ms Contin] 15 mg PO BID 30 Days #60 tab 07/04/24 Morphine Sulfate ER [Ms Contin] 15 mg PO BID PRN 30 Days #60 tab 07/04/24 Controlled Substance Measures - Controlled Substance Measures Is patient prescribed a controlled substance at discharge?: Yes When asked, does pt state using other controlled substances?: Yes If prescribed controlled substance>3 days was MAPS reviewed?: Yes
== END ==
LOC: PNWHC3 12:47
PROVIDERS: ATTEND Specialist
DX: M96.1 Postlaminectomy syndrome, not elsewhere classified (principal); M47.812 Spondylosis without myelopathy or radiculopathy, cervical region; M47.816 Spondylosis without myelopathy or radiculopathy, lumbar region; Z88.0 Allergy status to penicillin; Z88.8 Allergy status to other drugs, medicaments and biological substances
CPT/HCPCS: 99211

== ENCOUNTER → 2024-08-29 | Outpatient (CLI) | payer MEDICARE ==
[2024-08-29 13:39] VITALS: BP 137/85; PULSE 60; RESP 17; TEMP 97.6
--- NOTE | 2024-08-29 14:16 | P.PN ---
Subjective This is a 68-year-old pleasant gentleman who comes to pain clinic for low back pain for which he got procedures and on chronic opioid treatment. This visit is for neck pain pain is located in the neck going down bilaterally on the top of his shoulders. This has been going on for many years but because of his low back pain back surgery he did not had the opportunity to get the treatment. Pain is located in the neck area going down to bilateral upper shoulders. Pain is there all the time. Describes the pain as aching and stiff in character. Intensity goes up to 8/10. Pain usually gets worse as the day goes by with physical activities. No significant pain relieving factor other than some relief with pain medications. Denies any new neurological symptoms denies any new bowel bladder dysfunction. Objective - Vital Signs Vital signs: Vital Signs Temp 97.6 F 08/29/24 13:33 Pulse 60 08/29/24 13:33 Resp 17 08/29/24 13:33 BP 137/85 08/29/24 13:33 Pulse Ox 95 08/29/24 13:33 FiO2 Intake & Output 08/28/24 08/29/24 08/29/24 18:59 06:59 18:59 Weight 89.811 kg - Exam Physical Examinations : -Constitutiona : Cooperative , not in acute distress . -HEENT : nech : supple , no Lymphadenopathy , normal thyroid size . : eyes : no ptosis , no icterus, no photophobia . - neurologic : Cranial nerve II to XII intact , no focal neurological deffecit . -psychatric : alert , oriented X 3 , appropriate affect , intact judgment and insight . -Lymphatic : no Lymphadenopathy . - musculoskeltal : Cervical Spine motor stregnth in the deltoid and biceps, normal right side , normal Left side motor stregnth biceps and the wrist extensors normal right side ,normal left side . motor stregnth in the triceps muscle . normal Right side , normal Left side deep tendon reflexes normal at the biceps , normal at Brachioradialis , normal at triceps. cervical facet loading test: Positive Bilaterally Spurling test= positive Right , positive left. Neck distraction test= positive Right , positive left. Chnig sign= positive right, positive left . Assessment and Plan Plan: Assessment. Cervical disc herniation. Cervical radiculopathy. Plan. Schedule for cervical epidural steroid injection at C5-6 level. Discussed the diagnosis, treatment pain procedure possible complications which may include infection bleeding nerve damage paralysis aggravation of pain. Patient understands and all questions were answered.
== END ==
LOC: PNWHC3 12:58
PROVIDERS: ATTEND Pain Medicine Interventional Pain Medicine
DX: M50.10 Cervical disc disorder with radiculopathy, unspecified cervical region (principal); Z88.0 Allergy status to penicillin; Z88.8 Allergy status to other drugs, medicaments and biological substances
CPT/HCPCS: 99211

== ENCOUNTER → 2024-10-10 | Outpatient (CLI) | payer MEDICARE ==
[2024-10-10 13:41] VITALS: BP 138/78; PULSE 63; RESP 15; TEMP 97.8
--- NOTE | 2024-10-10 15:41 | P.PAINPG ---
PQRS Measure Charge Sheet Comment: A 68 yr old male w at side with a history of severe and chronic neck pain secondary to radiculopathy, spondylosis with facet arthropathy without myelopathy presents today for WINSOME C5-C6 #1. Pt states he experienced 0 % pain relief x 2 wks s/p procedure. Pain level is provoked at 3 /10 in intensity, cons tant, predominantly axial, localized in the cervical spine, dull in character w occasional shooting towards the shoulders and mid back. Pain is provoked by over activity. Pain is alleviated by medications, topical, ice, heat, PT x 6 wks which ended in December 2022 (cervical), PT x 8 wks (lumbar) which ended in May 2024, physician guided stretching regimen daily since May 2024 (cervical, lumbar), use of a walker for ambulatory assistance, repositioning and rest. Interventional pain procedures completed include WINSOME L1-L2 (07/03), WINSOME C5-C6 x1 Patient is currently on MS, Tyl Patient denies any side effects of the medication(s), denies excessive drowsiness or sleepiness, denies suicidal ideation and reports that the current pain medication is helping to control the pain and improve activities of daily living. Patient denies any motor or sensory deficits. Patient denies any fever or night sweats, denies any change in the bowel movements or urination. Physical Examination: -Constitutional: Cooperative. Not in acute distress . - Neurologic: Cranial nerve II to XII intact. No focal neurological deficits. - Psychatric: Alert & oriented x 3. Matching mood & appropriate affect. Judgment and insight intact. - Musculoskeletal: Cervical spine: Muscle bulk/ tone/ strength in the bilateral upper extremities normal Vertebral body tenderness to palpation over Spurling test positive Taut bands w twitch response over BL C4- T2 Distraction test positive Facet loading test positive TTP Thoracic spine Muscle bulk / tone/ strength in the bilateral paraspinal muscles normal Vertebral body tender to palpation over Facet loading test positive TTP Lumbar spine: Motor bulk/ tone/ strength lower extremities , thigh and legs : 5/5 Deep tendon reflexes : Normal Knee Jerk. Normal Ankle Jerk . Vertebral body tenderness to palpation over Lumbar Facet Loading Test positive Straight Leg Raise: positive at 30 degrees right side/ left side Gaenslen's Test positive Sacral spine : Severe tenderness over the Sacroiliac joint: right side / left side Range of motion: Flexion of the lumbar spine <60 degrees Range of motion: Extension of the lumbar spine <20 degrees Gaenslen's Test positive R / L Boone test: positive right side / left side Thigh Thrust Test positive R / L Sacral Thrust Test positive R/ L Assessment and plan: Chronic neck pain secondary to cervical radiculopathy, spondylosis with facet arthropathy without myelopathy Recommendation of PT focus on traction x 6 wks M54.12 and medication refills. MS ER 15mg #60 w 1 RF. Use, side effects, adverse reactions, safe storage discussed. All questions answered. I have spent less than 30 minutes on patient care today. Dr Rodriguez was available by phone for the evaluation of this patient. The time was used to review the medical records including relevant urine studies and Prescription history (MAPs), review of the available imaging, evaluation and examination of the patient, coordination of care with the medical staff and if applicable r eferring physicians, as well as creation of the medical record - Pain Location Neck Non-Pharmacological Interventions: Heat, Relaxation Technique Pharmacological Interventions: Medication, Topical Medication PQRS Narrative: Narcotic Agreement Date Signed 08/29/24 Hx Alcohol Use (MH) Yes: 3X WEEKLY Home Medications: Ambulatory Orders Acetaminophen Tab [Tylenol] 1,000 mg PO TID 01/12/23 Cetirizine HCl [Zyrtec] 10 mg PO DAILY 01/12/23 Ergocalciferol [Vitamin D2 (1250 Mcg = 79590 Iu)] 1,250 mcg PO WE 01/12/23 Fluticasone Nasal [place] [Flonase Nasal [place]] 2 spray EA NOSTRIL DAILY 01/12/23 Magnesium 250 mg PO DAILY 01/12/23 Pantoprazole [Protonix] 40 mg PO QAM 01/12/23 Sertraline [Zoloft] 50 mg PO QAM 01/12/23 Salt Tab(Unk) 1 - 2 tab PO DIRECTED PRN 02/24/23 Testosterone Cypionate [Depo-Testosterone] 100 mg IM AMBRIZ 02/24/23 ALPRAZolam [Xanax] 0.25 mg PO BID PRN 10/30/23 Metoprolol Tartrate [Lopressor] 12.5 mg PO BID 10/30/23 Midodrine [ProAmatine] 5 mg PO TID 10/30/23 methocarbamoL [Robaxin] 500 mg PO BID 10/30/23 Apixaban [Eliquis] 5 mg PO BID 05/11/24 Calcium Carbonate [Tums] 500 mg PO TID PRN 05/11/24 Furosemide [Lasix] 20 mg PO DAILY 05/11/24 Furosemide [Lasix] 20 ng PO DIRECTED PRN 05/11/24 Gabapentin 300 mg PO TID 05/11/24 L.acidoph,Paracasei, B.lactis [Probiotic] 1 each PO DAILY 05/11/24 Levothyroxine Sodium [Synthroid] 274 mcg PO DAILY 05/11/24 Losartan Potassium 12.5 mg PO DAILY 05/11/24 Potassium Chloride [K-Tab ER] 10 meq PO DAILY 05/11/24 Simethicone [Gas-X] 125 mg PO DAILY PRN 05/11/24 ondansetron HCL [Ondansetron HCl] 8 mg PO DIRECTED PRN 05/11/24 polyethylene glycoL 3350 [Miralax] 17 gm PO DAILY 05/11/24 Morphine Sulfate ER [Ms Contin] 15 mg PO BID 30 Days #60 tab 08/31/24 Unk Cranberry Supp 1 tab PO DAILY 09/22/24 Unk Multi Vitamin 1 tab PO DAILY 09/22/24 Controlled Substance Measures - Controlled Substance Measures Is patient prescribed a controlled substance at discharge?: Yes When asked, does pt state using other controlled substances?: Yes If prescribed controlled substance>3 days was MAPS reviewed?: Yes
== END ==
LOC: PNWHC3 13:03
PROVIDERS: ATTEND Specialist
DX: M47.22 Other spondylosis with radiculopathy, cervical region (principal); G89.29 Other chronic pain; Z88.0 Allergy status to penicillin; Z88.8 Allergy status to other drugs, medicaments and biological substances; Z88.5 Allergy status to narcotic agent
CPT/HCPCS: 99212

== ENCOUNTER → 2024-11-24 | Outpatient (CLI) | payer MEDICARE ==
[2024-11-24 14:44] VITALS: BP 131/82; PULSE 61; RESP 18; TEMP 97.8
--- NOTE | 2024-11-24 15:27 | P.PAINPG ---
PQRS Measure Charge Sheet Comment: A 69 yr old male w at side with a history of severe and chronic neck pain secondary to radiculopathy, spondylosis with facet arthropathy without myelopathy presents today for medication refills. Pain level is provoked at 6-7 /10 in intensity, constant, predominantly axial, localized in the cervical and lumbar spines, dull in character w occasional shooting from the neck towards the shoulders and from the lower lumbar spine up the mid back. Pain is provoked by over activity. Pt tried to do PT for 1 wk but it caused his toes to go numb. He continues to follow a physician guided home exercise regimen since May 2024. Pain is alleviated by medications, topical, ice, heat, PT x 6 wks which ended in December 2022 (cervical), PT x 8 wks (lumbar) which ended in May 2024, physician guided stretching regimen daily since May 2024 (cervical, lumbar), use of a walker for ambulatory assistance, repositioning and rest. Interventional pain procedures completed include WINSOME L1-L2 (07/03), WINSOME C5-C6 x1 Patient is currently on MS, Tyl Patient denies any side effects of the medication(s), denies excessive drowsi ness or sleepiness, denies suicidal ideation and reports that the current pain medication is helping to control the pain and improve activities of daily living. Patient denies any motor or sensory deficits. Patient denies any fever or night sweats, denies any change in the bowel movements or urination. Physical Examination: -Constitutional: Cooperative. Not in acute distress . - Neurologic: Cranial nerve II to XII intact. No focal neurological deficits. - Psychatric: Alert & oriented x 3. Matching mood & appropriate affect. Judgment and insight intact. - Musculoskeletal: Cervical spine: Muscle bulk/ tone/ strength in the bilateral upper extremities normal Vertebral body tenderness to palpation over C7 Spurling test positive Taut bands w twitch response over BL C4- T2 Distraction test positive Facet loading test positive TTP Thoracic spine Muscle bulk / tone/ strength in the bilateral paraspinal muscles normal Vertebral body tender to palpation over Facet loading test positive TTP Lumbar spine: Motor bulk/ tone/ strength lower extremities , thigh and legs : 5/5 Deep tendon reflexes : Normal Knee Jerk. Normal Ankle Jerk . Vertebral body tenderness to palpation over L5 Lumbar Facet Loading Test positive Straight Leg Raise: positive at 30 degrees right side/ left side Gaenslen's Test positive Sacral spine : Severe tenderness over the Sacroiliac joint: right side / left side Range of motion: Flexion of the lumbar spine <60 degrees Range of motion: Extension of the lumbar spine <20 degrees Gaenslen's Test positive R / L Boone test: positive right side / left side Thigh Thrust Test positive R / L Sacral Thrust Test positive R/ L Imaging: MRI non contrast cervical spine from 11/26/22 reviewed MRI non contrast lumbar spine from 11/26/22 reviewed Assessment and plan: Chronic neck pain secondary to cervical radiculopathy, spondylosis with facet arthropathy without myelopathy Recommendation of medication refills and x ray M54.12, M54.16. MS ER 15mg #60 w 1 RF. UDS collected 11/24/24. Use, side effects, adverse reactions, safe storage discussed. All questions answered. I have spent less than 30 minutes on patient care today. Dr Rodriguez was available by phone for the evaluation of this patient. The time was used to review the medical records including relevant urine studies and Prescription history (MAPs), review of the available imaging, evaluation and examination of the patient, coordination of care with the medical staff and if applicable referring physicians, as well as creation of the medical record - Pain Location Neck Non-Pharmacological Interventions: Inactivity Pharmacological Interventions: PRN Medication PQRS Narrative: Narcotic Agreement Date Signed 08/29/24 Hx Alcohol Use (MH) Yes: 3X WEEKLY Home Medications: Ambulatory Orders Acetaminophen Tab [Tylenol] 1,000 mg PO TID 01/12/23 Cetirizine HCl [Zyrtec] 10 mg PO DAILY 01/12/23 Ergocalciferol [Vitamin D2 (1250 Mcg = 42539 Iu)] 1,250 mcg PO WE 01/12/23 Fluticasone Nasal [place] [Flonase Nasal [place]] 2 spray EA NOSTRIL DAILY 01/12/23 Magnesium 250 mg PO DAILY 01/12/23 Pantoprazole [Protonix] 40 mg PO QAM 01/12/23 Sertraline [Zoloft] 50 mg PO QAM 01/12/23 Salt Tab(Unk) 1 - 2 tab PO DIRECTED PRN 02/24/23 Testosterone Cypionate [Depo-Testosterone] 100 mg IM AMBRIZ 02/24/23 ALPRAZolam [Xanax] 0.25 mg PO BID PRN 03/22/24 Metoprolol Tartrate [Lopressor] 12.5 mg PO BID 10/30/23 Midodrine [ProAmatine] 5 mg PO TID 10/30/23 methocarbamoL [Robaxin] 500 mg PO BID 10/30/23 Apixaban [Eliquis] 5 mg PO BID 05/11/24 Calcium Carbonate [Tums] 500 mg PO TID PRN 05/11/24 Furosemide [Lasix] 20 mg PO DAILY 05/11/24 Furosemide [Lasix] 20 ng PO DIRECTED PRN 05/11/24 Gabapentin 300 mg PO TID 05/11/24 L.acidoph,Paracasei, B.lactis [Probiotic] 1 each PO DAILY 05/11/24 Levothyroxine Sodium [Synthroid] 274 mcg PO DAILY 05/11/24 Losartan Potassium 12.5 mg PO DAILY 05/11/24 Potassium Chloride [K-Tab ER] 10 meq PO DAILY 05/11/24 Simethicone [Gas-X] 125 mg PO DAILY PRN 05/11/24 ondansetron HCL [Ondansetron HCl] 8 mg PO DIRECTED PRN 05/11/24 polyethylene glycoL 3350 [Miralax] 17 gm PO DAILY 05/11/24 Unk Cranberry Supp 1 tab PO DAILY 09/22/24 Unk Multi Vitamin 1 tab PO DAILY 09/22/24 Morphine Sulfate ER [Ms Contin] 15 mg PO BID 30 Days #60 tab 11/24/24 Morphine Sulfate ER [Ms Contin] 15 mg PO BID 30 Days #60 tab 11/24/24 Controlled Substance Measures - Controlled Substance Measures Is patient prescribed a controlled substance at discharge?: Yes When asked, does pt state using other controlled substances?: Yes If prescribed controlled substance>3 days was MAPS reviewed?: Yes
--- NOTE | 2024-11-24 16:06 | XR ---
EXAMINATION TYPE: XR cervical spine 3 views, XR lumbar spine 3V DATE OF EXAM: 11/24/2024 3:36 PM COMPARISON: 09/23/2023 CLINICAL INDICATION: Male, 69 years old with history of M54.12, M54.16; PHH, pain FINDINGS: Cervical spine: Partially visualized CVC catheter on the right looping once probably in the lower internal jugular ve in and extending down prior to the upper to mid SVC level. Scattered mild degenerative disc disease w ith minimal endplate spondylosis. No predental space widening or prevertebral soft tissue swelling. C ervicothoracic junction is obscured by the patient's shoulders and not assessed. Remaining alignment is maintained. Some small heterotopic ossification noted along the posterior mid neck probably relate d to prior injury. Normal odontoid view. Lumbar spine: 5 lumbar type vertebral bodies. Postoperative change L4-S1 posterior and interbody lumbar fusion. Add itional anterior lumbar fusion at L5-S1 with a fixed grade 2 anterolisthesis here. Mild degenerative disc disease throughout the remainder of the lower thoracic and upper lumbar spine. Minimal superior endplate deformity with a slight anterior wedging L1 unchanged from 09/23/2023. IMPRESSION: Cervical spine: 1. Mild spondylotic change. No prevertebral soft tissue swelling. 2. The cervicothoracic junction is obscured by the patient's shoulders and not assessed. Remaining al ignment is maintained. Lumbar spine: 3. Status post L4-S1 posterior and interbody lumbar fusion. Additional anterior fusion at L5-S1 with a fixed grade 2 anterolisthesis here, unchanged from 2023. 4. Minimal anterior wedge deformity of L1 is unchanged and chronic. 5. Mild multilevel degenerative disc disease. [facility], , 11/24/2024 4:03 PM
== END ==
LOC: PNWHC3 14:26
PROVIDERS: ATTEND Anesthesiology
DX: M47.22 Other spondylosis with radiculopathy, cervical region (principal); M50.10 Cervical disc disorder with radiculopathy, unspecified cervical region; M51.360 Other intervertebral disc degeneration, lumbar region with discogenic back pain only; M43.17 Spondylolisthesis, lumbosacral region; G89.29 Other chronic pain; Z91.048 Other nonmedicinal substance allergy status; Z88.1 Allergy status to other antibiotic agents; Z88.5 Allergy status to narcotic agent; Z88.8 Allergy status to other drugs, medicaments and biological substances
CPT/HCPCS: 72040; 72100; 99211

== ENCOUNTER → 2024-12-22 | Outpatient (CLI) | payer MEDICARE ==
--- NOTE | 2024-12-25 19:24 | MR ---
EXAMINATION TYPE: MR cspine/lspine wo con DATE OF EXAM: 12/22/2024 4:23 PM COMPARISON: Lumbar spine radiograph 11/24/2024, 05/02/2024, 09/23/2023, 07/27/2023, 06/22/2023, CT lumba r spine 03/13/2023, cervical spine radiograph 11/24/2024, 08/11/2024 , MR C-spine/L spine 11/26/2022 CLINICAL INDICATION: Male, 69 years old with history of M54.16, M54.12, Neck pain, Low back pain into art lower extremities, hx of lymphoma IV Contrast: None TECHNIQUE: Multiplanar, multisequence imaging of the cervical spine is performed without IV contrast. FINDINGS: Alignment: The cervical vertebral bodies have preserved heights. Alignment is within normal limits gi dominick patient positioning. Bones/discs: Multilevel anterior osteophytosis. Similar heterogenous bone signal most prominently wit hin the C2 and C3 vertebral bodies likely representing red marrow conversion. Multilevel disc desicca tion. Schmorl's node involving the inferior endplate of the C4 vertebral body with surrounding hyperi ntense STIR signal consistent with edema. Cord: The spinal cord is unremarkable with regards to their signal intensity and morphology. C2-C3: No significant disc pathology. The spinal canal is patent. No neural foraminal stenosis. C3-C4: No significant disc pathology. The spinal canal is patent. No neural foraminal stenosis. C4-C5: Minimal broad-based disc bulge without significant stenosis. No neural foraminal stenosis. C5-C6: Right paracentral disc protrusion. Resultant mild effacement of anterior thecal sac with abutm ent and some mild mass effect upon the ventral spinal cord. No cord signal change. Uncovertebral join t hypertrophy with mild left neural foraminal stenosis. The right neural foramen is patent. C6-C7: No significant disc pathology. The spinal canal is patent. No neural foraminal stenosis. C7-T1: No significant disc pathology. The spinal canal is patent. No neural foraminal stenosis. Other: None. IMPRESSION: 1. Right paracentral disc protrusion at C5-C6 with mild central canal stenosis and mild mass effect upon the ventral spinal cord without signal change to suggest myelopathy. 2. Acute Schmorl's node involving the inferior endplate of the C4 vertebral body. TECHNIQUE: Multiplanar, multisequence imaging of the lumbar spine is performed without IV contrast. FINDINGS: Alignment: The lumbar vertebral bodies have preserved heights. Grade 1 fixed anterolisthesis of L5 on S1. Cord: The conus medullaris and the distal spinal cord appear unremarkable with regards to their signa l intensity and morphology. Bones/Discs: Postsurgical changes with bilateral pedicular screws and rods involving L4-S1 with inter vertebral disc hardware. This creates susceptibility artifact which limits evaluation. Multilevel dis c desiccation. T12-L1: No significant disc pathology. No significant central canal or neuroforaminal stenosis. L1-L2: Broad based disc bulge without significant central canal stenosis. No significant neural leeann inal stenosis. L2-L3: Broad based disc bulge without significant central canal stenosis. No significant neural leeann inal stenosis. L3-L4: Broad-based disc bulge with ligamentum flavum buckling. No significant central canal stenosis. Mild bilateral neural foraminal stenosis. L4-L5: Postsurgical changes without central canal stenosis. Mild bilateral neural foraminal stenosis. L5-S1: Postsurgical changes without central canal stenosis. Mild bilateral neural foraminal stenosis. Other findings: None. IMPRESSION: 1. No definitive evidence of disc herniation or significant spinal canal stenosis. 2. Postsurgical changes with fixation hardware involving L4-S1. There is fixation of previously seen grade 1 anterolisthesis of L5 on S1. [facility], , 12/25/2024 7:22 PM
== END | disposition home or self-care (01) ==
LOC: RADMRIMAIN 15:16
PROVIDERS: ATTEND Specialist
DX: M48.02 Spinal stenosis, cervical region (principal); M50.122 Cervical disc disorder at C5-C6 level with radiculopathy; M51.16 Intervertebral disc disorders with radiculopathy, lumbar region; M43.17 Spondylolisthesis, lumbosacral region; Z98.890 Other specified postprocedural states
CPT/HCPCS: 72141; 72148

== ENCOUNTER → 2024-12-22 | Outpatient (CLI) | payer MEDICARE ==
[2024-12-23 02:23] LABS: HCT 55.1 % (39.6-50.0); HGB 17.9 g/dL (13.0-17.0); MCH 31.9 pg (27.0-32.0); MCHC 32.5 g/dL (32.0-37.0); MCV 98.2 FL (80.0-97.0); Mean Platelet Volume 10.3 FL (9.5-12.2); NRBC Per 100 WBC 0 X 10*3/uL (0.00-0.01); Platelet Count 197 X 10*3/uL (140-440); RBC 5.61 X 10*6/uL (4.40-5.60); RDW 14.3 % (11.5-14.5); WBC 8.68 X 10*3/uL (4.50-10.00)
[2024-12-23 02:58] LABS: Prostate Specific Antigen 5.66 ng/mL (0.000-6.500); Testosterone >1400.00 ng/dL (86.98-780.10)
== END | disposition home or self-care (01) ==
LOC: LABWHC1 14:41
PROVIDERS: ATTEND Internal Medicine Endocrinology, Diabetes & Metabolism
DX: E29.1 Testicular hypofunction (principal); E03.8 Other specified hypothyroidism
CPT/HCPCS: 36415; 84153; 84403; 84443; 85027

== ENCOUNTER → 2025-02-02 | Outpatient (CLI) | payer MEDICARE ==
[2025-02-02 14:28] VITALS: BP 132/82; PULSE 60; RESP 16; TEMP 97.2
--- NOTE | 2025-02-02 15:22 | P.PAINPG ---
Objective - Vital Signs Vital signs: Vital Signs Temp 97.2 F L 02/02/25 14:20 Pulse 60 02/02/25 14:20 Resp 16 02/02/25 14:20 BP 132/82 02/02/25 14:20 Pulse Ox 98 02/02/25 14:20 FiO2 Intake & Output 02/01/25 02/02/25 02/02/25 18:59 06:59 18:59 Weight 87.543 kg PQRS Measure Charge Sheet Mode of Arrival: Ambulatory Comment: A 69 yr old male w at side with a history of severe and chronic neck pain secondary to radiculopathy, spondylosis with facet arthropathy without myelopathy presents today for medication refills. Pain level is provoked at 2-7 /10 in intensity, constant, predominantly axial, localized in the cervical and lumbar spines, dull in character w occasional shooting from the neck towards the shoulders and from the lower lumbar spine up the mid back. Pain is provoked by over activity. Pt tried to do PT for 1 wk but it caused his toes to go numb. He continues to follow a physician guided home exercise regimen since May 2024. Pain is alleviated by medications, topical, ice, heat, PT x 6 wks which ended in December 2022 (cervical), PT x 8 wks (lumbar) which ended in May 2024, physician guided stretching regimen daily since May 2024 (cervical, lumbar), use of a walker for ambulatory assistance, repositioning and rest. Interventional pain procedures completed include WINSOME L1-L2 (07/03), WINSOME C5-C6 x1 Patient is currently on MS, Tyl Patient denies any side effects of the medication(s), denies excessive drowsiness or sleepiness, denies suicidal ideation and reports that the current pain medication is helping to control the pain and improve activities of daily living. Patient denies any motor or sensory deficits. Patient denies any fever or night sweats, denies any change in the bowel movements or urination. Physical Examination: -Constitutional: Cooperative. Not in acute distress . - Neurologic: Cranial nerve II to XII intact. No focal neurological deficits. - Psychatric: Alert & oriented x 3. Matching mood & appropriate affect. Judgment and insight intact. - Musculoskeletal: Cervical spine: Muscle bulk/ tone/ strength in the bilateral upper extremities normal Vertebral body tenderness to palpation over C7 Spurling test positive Taut bands w twitch response over BL C4- T2 Distraction test positive Facet loading test positive TTP Thoracic spine Muscle bulk / tone/ strength in the bilateral paraspinal muscles normal Vertebral body tender to palpation over Facet loading test positive TTP Lumbar spine: Motor bulk/ tone/ strength lower extremities , thigh and legs : 5/5 Deep tendon reflexes : Normal Knee Jerk. Normal Ankle Jerk . Vertebral body tenderness to palpation over L5 Lumbar Facet Loading Test positive Straight Leg Raise: positive at 30 degrees right side/ left side Gaenslen's Test positive Sacral spine : Severe tenderness over the Sacroiliac joint: right side / left side Range of motion: Flexion of the lumbar spine <60 degrees Range of motion: Extension of the lumbar spine <20 degrees Gaenslen's Test positive R / L Boone test: positive right side / left side Thigh Thrust Test positive R / L Sacral Thrust Test positive R/ L Imaging: MRI non contrast cervical spine from 11/26/22 reviewed MRI non contrast lumbar spine from 11/26/22 reviewed Assessment and plan: Chronic neck pain secondary to cervical radiculopathy, spondylosis with facet arthropathy without myelopathy Recommendation of medication refills . MS ER 15mg #60 w 1 RF. UDS recollected 11/24/24. Narcotic/ opiate agreement updated 02/02/25. Use, side effects, adverse reactions, safe storage discussed. All questions answered. I have spent less than 30 minutes on patient care today. Dr Rodriguez was available by phone for the evaluation of this patient. The time was used to review the medical records including relevant urine studies and Prescription his tory (MAPs), review of the available imaging, evaluation and examination of the patient, coordination of care with the medical staff and if applicable referring physicians, as well as creation of the medical record - Pain Location Bilateral Lower Neck Non-Pharmacological Interventions: Heat, Ice, Inactivity, Physical Therapy, Position/Reposition, Relaxation Technique, Sitting, Stretching Pharmacological Interventions: Epidural, PRN Medication, Scheduled Medication, Topical Medication PQRS Narrative: Narcotic Agreement Date Signed 02/02/25 Blood Pressure 132/82 Pain Intensity [Bilateral 7 Lower Neck] Scale Used Numeric (1 - 10) Hx Alcohol Use (MH) Yes: 3X WEEKLY Home Medications: Ambulatory Orders Acetaminophen Tab [Tylenol] 1,000 mg PO TID 01/12/23 Cetirizine HCl [Zyrtec] 10 mg PO DAILY 01/12/23 Ergocalciferol [Vitamin D2 (1250 Mcg = 50009 Iu)] 1,250 mcg PO WE 01/12/23 Fluticasone Nasal [place] [Flonase Nasal [place]] 2 spray EA NOSTRIL DAILY 01/12/23 Magnesium 250 mg PO DAILY 01/12/23 Pantoprazole [Protonix] 40 mg PO QAM 01/12/23 Sertraline [Zoloft] 50 mg PO QAM 01/12/23 Salt Tab(Unk) 1 - 2 tab PO DIRECTED PRN 02/24/23 Testosterone Cypionate [Depo-Testosterone] 100 mg IM AMBRIZ 02/24/23 ALPRAZolam [Xanax] 0.25 mg PO BID PRN 10/30/23 Metoprolol Tartrate [Lopressor] 12.5 mg PO BID 10/30/23 Midodrine [ProAmatine] 5 mg PO TID 10/30/23 methocarbamoL [Robaxin] 500 mg PO BID 10/30/23 Apixaban [Eliquis] 5 mg PO BID 05/11/24 Calcium Carbonate [Tums] 500 mg PO TID PRN 05/11/24 Furosemide [Lasix] 20 mg PO DAILY 05/11/24 Furosemide [Lasix] 20 ng PO DIRECTED PRN 05/11/24 Gabapentin 300 mg PO TID 05/11/24 L.acidoph,Paracasei, B.lactis [Probiotic] 1 each PO DAILY 05/11/24 Levothyroxine Sodium [Synthroid] 274 mcg PO DAILY 05/11/24 Losartan Potassium 12.5 mg PO DAILY 05/11/24 Potassium Chloride [K-Tab ER] 10 meq PO DAILY 05/11/24 Simethicone [Gas-X] 125 mg PO DAILY PRN 05/11/24 ondansetron HCL [Ondansetron HCl] 8 mg PO DIRECTED PRN 05/11/24 polyethylene glycoL 3350 [Miralax] 17 gm PO DAILY 05/11/24 Unk Cranberry Supp 1 tab PO DAILY 09/22/24 Unk Multi Vitamin 1 tab PO DAILY 09/22/24 Morphine Sulfate ER [Ms Contin] 15 mg PO BID 30 Days #60 tab 02/02/25 Morphine Sulfate ER [Ms Contin] 15 mg PO BID 30 Days #60 tab 02/02/25 Controlled Substance Measures - Controlled Substance Measures Is patient prescribed a controlled substance at discharge?: Yes When asked, does pt state using other controlled substances?: Yes If prescribed controlled substance>3 days was MAPS reviewed?: Yes
== END ==
LOC: PNWHC3 14:11
PROVIDERS: ATTEND Specialist
DX: M47.22 Other spondylosis with radiculopathy, cervical region (principal); G89.4 Chronic pain syndrome; Z88.0 Allergy status to penicillin; Z88.8 Allergy status to other drugs, medicaments and biological substances; Z88.6 Allergy status to analgesic agent
CPT/HCPCS: 80307; 99212